=== PATIENT | female | born 1935 | race Caucasian/White ===

== ENCOUNTER → 2016-09-13 | Outpatient (CLI) | payer BC ==
[~2016-09-13] MED LIST: ACET325T30 PO; ANAS1TAB19 PO; CALCTAB5 PO; CETI10TA10 PO; CHOL1000 PO; CHOL2000 PO; CLR10 PO; CMD/3 PO; CTP1CL PO; CYCL0.052 OP; DILT120C67 PO; DIPH1TAB87 PO; DNSIS60 INJ; FLEC50TA PO; MELA1TAB5 PO; MRC50 PO; MULT-190 PO; OMEP20CA9 PO; OXYC-609 PO; PEDICHW34 PO; PLV75 PO; POLY335025 PO; POLYSOL4 OP; SULF500T36 PO; TAMO20TA9 PO; TPRSR100 PO; WARF3TAB6 PO; livalo PO
--- NOTE | 2016-09-13 13:57 | MAMMOGRAPHY REPORT ---
BILATERAL DIGITAL DIAGNOSTIC MAMMOGRAM TOMOSYNTHESIS WITH CAD: 09/13/2016 CLINICAL HISTORY: History of right breast cancer status post lumpectomy September 2015 as well as radiatio n therapy. Patient reports intermittent tenderness of the right breast and right axilla since surge ry. She denies any palpable lumps. TECHNIQUE: Breast tomosynthesis in addition to standard 2D mammography was performed. Current study was also evaluated with a Computer Aided Detection (CAD) system. Bilateral CC and MLO 2-D and mayito synthesis images and spot magnification right cc and ML views were obtained. COMPARISON: Comparison is made to exams dated: 03/15/2016 mammogram, 09/27/2015 mammogram, 09/27/2015 s pecimen, 09/27/2015 localization, 08/27/2015 mammogram, and 08/27/2015 ultrasound biopsy - [facility]. BREAST COMPOSITION: The tissue of both breasts is heterogeneously dense, which may obscure small ma sses. FINDINGS: The images are somewhat limited as the patient cannot tolerate proper positioning. Ther e are stable post surgical changes in the right upper outer quadrant from prior lumpectomy, includin g stable architectural distortion and surgical clips at the lumpectomy bed. Mild diffuse right cheo st skin and trabecular thickening is slightly decreased, likely due to prior radiation therapy. The remainder of both breasts are stable compared to prior exams, without suspicious masses, calcifi cations, or areas of architectural distortion noted. Scattered bilateral benign-appearing calcifica tions are not significantly changed. IMPRESSION: ACR BI-RADS CATEGORY 2: BENIGN Stable post treatment changes in the right breast, without mammographic evidence of malignancy in ei ther breast. There is no mammographic evidence of malignancy. Recommend routine bilateral mammogra ms in one year unless otherwise clinically indicated; I would recommend the patient remain a diagnos tic patient so that additional views can be performed of the lumpectomy bed if needed. The patient has been verbally notified of the results. Approximately 10% of breast cancers are not detected with mammography. A negative mammographic repor t should not delay biopsy if a clinically suggestive mass is present. Ana Loya M.D. /:09/13/2016 10:55:22 Professor Of Practice: Sola Cummings, [facility] letter sent: Normal 1/2 BI-RADS Code: ACR BI-RADS Category 2: Benign
== END | disposition home or self-care (01) ==
LOC: C.MAMM 10:19
PROVIDERS: ATTEND Nurse Practitioner Family
DX: Z08 Encounter for follow-up examination after completed treatment for malignant neoplasm (principal); Z85.3 Personal history of malignant neoplasm of breast; Z92.3 Personal history of irradiation

== ENCOUNTER → 2016-11-15 | Outpatient (CLI) | payer BC ==
[~2016-11-15] MED LIST changes: -ANAS1TAB19 PO; -CYCL0.052 OP; +DIPH1TAB PO; -DIPH1TAB87 PO; +TAMO20TA47 PO; -TAMO20TA9 PO
[2016-11-15 14:56] VITALS: BP 155/74; PULSE 71; TEMP 36.8; O2SAT 99
--- NOTE | 2016-11-15 16:23 | Radiation Oncology Follow-Up ---
Radiation Oncology Follow-Up Date of Visit Nov 15, 2016. Reason For Visit Six-month follow-up Radiation Completion Date 01/26/16 - due to compression fx Diagnosis (1) Breast cancer Status: Resolved Onset Date: 08/27/2015 Histology Subtype: lobular and ductal to lesions Stage: ll (A) Permanent Comment: Abnormal right breast mammogram 08/01/2015 Status post biopsy 08/27/2015 10:00 lesion invasive ductal carcinoma, grade 1 Estrogen receptor positive, progesterone receptor negative, HER-2/quique negative 11:00 lesion invasive lobular carcinoma, grade 1 Estrogen receptor positive, progesterone receptor positive, HER-2/quique negative Status post lumpectomy and sentinel lymph node biopsy 09/27/2015 Lobular and ductal carcinoma Stage pT1b pN1a M0 Radiation therapy stopped 01/26/2016 received 3780 cGy. Treatments stopped early due to admission for compression fracture and inability to tolerate being in the treatment position Last Edited By: Frances Hogan on Mar 08, 2016 16: 33 History of Present Illness Ms. Meehan is an 81-year-old female without a family history of breast cancer. He had recently undergone a CT scan of the abdomen and pelvis on 06/30/2015 for complaint of abdominal and back pain. She underwent surgery for a hiatal hernia. On 08/11/2015 patient underwent bilateral digital screening mammograms. This showed a 0.9 cm asymmetry with possible associated architectural distortion in the lateral middle one third of the right breast best seen on the cc views. Additional imaging was suggested with spot compression, true lateral and possible ultrasound recommended. On 2015 the patient underwent a unilateral right digital diagnostic mammogram with a 3-D/2-D and targeted right ultrasound. The previously described asymmetry in the right lateral breast best seen on the cc view effaced to a baseline appearance on the additional views with no clear architectural distortion seen on tomosynthesis images. A 1.0 cm focal asymmetry was seen within the right upper quadrant which appeared stable compared to a prior study in 2009. Targeted ultrasound was performed of the right upper-outer quadrant in the region of the mammographic asymmetry. In the right breast at the 11 o'clock position 4 cm from the nipple a hypoechoic non-circumscribed mass was appreciated measuring 0.6 x 0.6 cm. Additionally there was a subtle 0.4 x 0.4 cm ill-defined irregular hypo-cord region and the right breast at the 10 o'clock position 4 cm the nipple which was felt to be incidentally noted and not seen mammographically. These 2 findings are indeterminant an ultrasound-guided core needle biopsy was recommended for further evaluation. This was given a BIRADS Category 4. On 08/27/2015 the patient underwent ultrasound-guided biopsy of the 10 o'clock position of the right breast and the 11 o'clock position of the right breast. The tissue from the right breast 10:00 core biopsy revealed an invasive ductal carcinoma, [place] grade 1 of 3 with no lymphovascular invasion identified. Estrogen receptors were positive (100%, strong intensity, H-score 300). Progesterone receptors were negative (0%, H- score 0, internal control present). HER-2/ quique overexpression was negative (score 1+, week/incomplete in 50% of the cells. The Ki-67 proliferation index was 5%. The tumor measured up to 0.6 cm The biopsy from the 11 o'clock position of the right breast also revealed an invasive ductal carcinoma Jesu grade 1 of 3 with no lymphovascular invasion identified. Estrogen receptors were positive (100%, strong intensity, H-score 300). Progesterone receptors were positive (45% , strong intensity, H-score 135). HER-2/ quique overexpression was negative (score 0, less than 5% minimal staining). Ki-67 proliferation index was 3-5%. There was evidence of lobular carcinoma in situ. This tumor measured up to 0.4 cm. Both tumors were negative for HER-2/quique by FISH analysis. Case: [id number]. Patient was seen by Dr. Eddie Mendez for evaluation and discussion of the surgical treatment options. He discussed with the patient breast conserving therapy which the patient agreed. Therefore on 2015 the patient underwent a right axillary sentinel node biopsy and right breast lumpectomy. 2 sentinel lymph nodes were identified and 1 was negative. The second contained a deposit of macro metastatic disease measuring 0.5 cm with evidence of extranodal extension identified. 2 lesions were identified. These were invasive lobular and ductal carcinoma. The tumors measured 1.0 x 1.0 x 0.8 cm which was lobular and 0.7 x 0.5 x 0.5 cm which was the ductal lesion. The lobular was a histologic grade 2 and the ductal was a histologic grade 1. No ductal carcinoma in situ was identified there was lobular carcinoma in situ identified. The margins of the invasive lobular carcinoma extended to the superior and inferior en face margins. Additional superior and inferior tissues were taken. These revealed benign breast tissue with the examined en face margins negative for DCIS and invasive carcinoma. The invasive carcinoma extended to within 0.6 cm of the deep margin. No lymphovascular invasion was identified. The final AJCC pathologic staging was pT1b pN1a for the lobular carcinoma. ER positive, [place] positive and HER-2/quique negative. The AJCC pathologic stage for the ductal component was pT1b pN0, ER positive, [place] negative and HER-2/quique negative. Case: [id number]. Patient was seen by Dr. Alverto Leo for discussion of the role of adjuvant therapy. He suggested consideration of adjuvant radiation and antiestrogen therapy. The patient was also seen by Dr. Kp Virgen who agreed with this recommendation. We therefore were asked to see the patient in referral to discuss with her the potential role of adjuvant radiation. Patient's treatment was stopped after 21 fractions 01/26/2016. She had sustained a compression fracture and was hospitalized. [facility] She continued on pain medications and physical therapy. She had required the use of a fentanyl patch in order to be able to lay in the treatment position. This was 12 g per hour. Following treatment this was continued to help with the pain of her complexion fracture. She steadily improved and was discharged back to her own [facility] the [facility]. Interim History She's been doing well over the past 6 months. She does have occasional soreness in her breast. She also has some mild discomfort in the chest wall. This is intermittent and minimal. She is noted no masses. There is been no changes of the axilla. She has noted no swelling of her arm. She is up-to- date on mammography. Mammogram was performed 09/13/2016. This showed posttreatment changes in the right breast, without mammographic evidence of malignancy in either breast. There is no mammographic evidence of malignancy. Recommend routine bilateral mammograms in one year unless otherwise clinically indicated. She'll continue with diagnostic mammograms. She had been on Arimidex. She called and requested that this be changed to tamoxifen. She was greatly concerned about the possibility of increased osteoporosis. Allergies Coded Allergies: Penicillins (Verified Allergy, Severe, THROAT SWELLS, PASSES OUT, 11/02/15) PASSES OUT AND THROAT SWELLS Coos (Verified Allergy, Mild, Runny/stuffy nose, 11/02/15) Aspirin (Verified Allergy, Unknown, WELTS AROUND EYES, 11/02/15) Atorvastatin (Verified Allergy, Unknown, Unknown, 11/02/15) Chocolate (Verified Adverse Reaction, Intermediate, DIARRHEA, 11/02/15) Lactose Intolerance (Verified Adverse Reaction, Intermediate, GI upset, 09/27/15) Dust (Verified Adverse Reaction, Mild, RUNNY NOSE/SINUS ISSUES, 11/02/15) Grass (Verified Adverse Reaction, Mild, RUNNY NOSE/SINUS ISSUES, 11/02/15) Mushroom (Verified Adverse Reaction, Mild, GI SYMPTOMS, 11/02/15) POLLEN (Verified Adverse Reaction, Mild, RUNNY NOSE/SINUS ISSUES, 11/02/15) Soy Milk (Verified Adverse Reaction, Mild, GI SYMPTOMS, 11/02/15) Pt has not tried other soy sources than milk since she had GI upset associated with soy milk; Pt has been receiving Fibersource HN via J-tube (contains soy protein isolate); no GI symptoms reported. Chicken Meat (Verified Adverse Reaction, Unknown, DIARRHEA, 11/02/15) Simvastatin (Verified Adverse Reaction, Unknown, Unknown, 11/02/15) Home Medications Scheduled Cholecalciferol (Vitamin D3), 1,000 INTER.UNIT PO BID Cholecalciferol (Vitamin D3), 1 CAP PO DAILY Clonidine Hcl (Catapres), 0.1 MG PO BID Clopidogrel Bisulfate (Clopidogrel), 75 MG PO QAM Denosumab (Prolia), 1 DOSE INJ q6mon Diltiazem Hcl Extended Release (Diltiazem Hcl Er), 120 MG PO QAM Flecainide Acetate (Tambocor), 50 MG PO BID Melatonin (Kp Melatonin), 3 MG PO HS Mercaptopurine (Mercaptopurine), 75 MG PO QPM Metoprolol Succinate (Toprol Xl), 100 MG PO QAM Ocuvite Preservision (Ocuvite Preservision), 1 TAB PO QAM Omeprazole (Prilosec), 20 MG PO DAILY Pediatric Multiple Vitamin W/ ([place] Multivitamin/M), 2 TABS PO QAM Sulfasalazine (Azulfidine), 500 MG PO BID Tamoxifen (Nolvadex), 20 MG PO DAILY Warfarin Sod (Warfarin Sodium), 6 MG PO DAILY [livalo], 4 MG PO HS Scheduled PRN Acetaminophen (Acetaminophen), 650 MG PO Q4H PRN for Mild Pain Loratadine (Claritin), 10 MG PO DAILY PRN for ALLERGIC REACTION Oxycodone HCl (Oxycodone HCl), 5 MG PO Q6H PRN for Severe Pain Polyethylene Glycol 3350 (Miralax), 17 GM PO DAILY PRN for Constipation Review of Systems Gastrointestinal: Symptoms: WNL Oral: Symptoms: No Problems Respiratory: Symptoms: WNL Urinary: Symptoms: WNL, Frequency Skin: Symptoms: No Problems Breast: Right Upper Arm Measurement: 28.9 Right Mid Arm Measurement: 23.5 Right Wrist Measurement: 16.2 Left Upper Arm Measurement: 30.0 Left Mid Arm Measurement: 23.9 Left Wrist Measurement: 15.6 Arm Dominence: Right Physical Exam Vital Signs Date Time Temp Pulse Resp B/P (MAP) Pulse Ox O2 Delivery O2 Flow Rate FiO2 11/15/16 14:56 36.8 71 16 155/74 99 Fatigue: None General Appearance: no apparent distress Eyes: normal inspection, EOMI ENT: normal ENT inspection, hearing grossly normal Neck: no adenopathy, thyroid normal Respiratory/Chest: lungs clear, no respiratory distress, no accessory muscle use Breast: Breast examination reveals well-healed incisions of the right breast. There are no masses. There is mild generalized tenderness. There is no axillary adenopathy. There are no skin retractions or nipple changes. Using the [place] score cosmesis she has a in excellent outcome. The left breast showed no masses or tenderness and no axillary adenopathy. Cardiovascular: no gallop, no murmur, + systolic murmur (3/6 systolic murmur) Extremities: no pedal edema Neurologic/Psychiatric: no motor/sensory deficits, alert, normal mood/affect Laboratory Studies Test 09/18/16 11:27 09/28/16 10:41 10/16/16 14:12 11/13/16 09:38 White Blood Count 4.22 K/uL (4.8-10.8) Red Blood Count 3.59 M/uL (4.2-5.4) Hemoglobin 11.7 g/dL (12.0-16.0) Hematocrit 37.8 % (37-47) Mean Corpuscular Volume 105.3 fL (80-100) Mean Corpuscular Hemoglobin 32.6 pg (25-34) Mean Corpuscular Hemoglobin Concent 31.0 g/dl (32-36) Platelet Count 280 K/uL (130-400) Mean Platelet Volume 9.9 fL (7.4-10.4) Neutrophils (%) (Auto) 61.2 % Lymphocytes (%) (Auto) 19.2 % Monocytes (%) (Auto) 16.6 % Eosinophils (%) (Auto) 1.9 % Basophils (%) (Auto) 0.9 % Neutrophils # (Auto) 2.58 K/uL (1.4-6.5) Lymphocytes # (Auto) 0.81 K/uL (1.2-3.4) Monocytes # (Auto) 0.70 K/uL (0.11-0.59) Eosinophils # (Auto) 0.08 K/uL (0-0.5) Basophils # (Auto) 0.04 K/uL (0-0.2) RDW Standard Deviation 60.6 fL (36.4-46.3) RDW Coefficient of Variation 15.7 % (11.5-14.5) Immature Granulocyte % (Auto) 0.2 % Immature Granulocyte # (Auto) 0.01 K/uL (0.00-0.02) Sodium Level 144 mmol/L (136-145) Potassium Level 4.7 mmol/L (3.5-5.1) Chloride Level 110 mmol/L (98-107) Carbon Dioxide Level 30 mmol/L (21-32) Anion Gap 4.0 mmol/L (3-11) Blood Urea Nitrogen 19 mg/dl (7-18) Creatinine 0.70 mg/dl (0.60-1.20) Est Creatinine Clear Calc Drug Dose 56.8 ml/min Estimated GFR () 93.5 Estimated GFR (Non- 80.7 BUN/Creatinine Ratio 27.0 (10-20) Random Glucose 107 mg/dl (70-99) Calcium Level 8.9 mg/dl (8.5-10.1) 9.7 mg/dl (8.5-10.1) Total Bilirubin 0.3 mg/dl (0.2-1) Aspartate Amino Transferase (AST) 28 U/L (15-37) Alanine Aminotransferase (ALT) 37 U/L (12-78) Alkaline Phosphatase 52 U/L (45-117) Lactate Dehydrogenase 218 U/L (84-246) Total Protein 7.0 gm/dl (6.4-8.2) Albumin 3.4 gm/dl (3.4-5.0) Globulin 3.6 gm/dl (2.5-4.0) Albumin/Globulin Ratio 0.9 (0.9-2) 25-Hydroxy Vitamin D Total 33.0 ng/ml (30-100) Parathyroid Hormone (Intact) 49.7 pg/mL (11.1-79.5) POC Prothrombin Time INR 2.2 (0.9-1.1) 1.9 (0.9-1.1) Additional Studies Patient: AMAIRANI MEEHAN [facility] Rec: [id number] Address1: [facility] [id number] Address2: [address] [place] [address] Acct ID: [id number] Date: 1935 Sex: F Ref Phy: Ole Spangler M.D. Att Phy: Alverto Leo D.O. 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 CC: Alverto Leo D.O. CONF: DICTATED BY: Ana Loya MD MAMMOGRAPHY REPORT BILATERAL DIGITAL DIAGNOSTIC MAMMOGRAM TOMOSYNTHESIS WITH CAD: 09/13/2016 CLINICAL HISTORY: History of right breast cancer status post lumpectomy September 2015 as well as radiation therapy. Patient reports intermittent tenderness of the right breast and right axilla since surgery. She denies any palpable lumps. TECHNIQUE: Breast tomosynthesis in addition to standard 2D mammography was performed. Current study was also evaluated with a Computer Aided Detection (CAD ) system. Bilateral CC and MLO 2-D and tomosynthesis images and spot magnification right cc and ML views were obtained. COMPARISON: Comparison is made to exams dated: 03/15/2016 mammogram, 09/27/2015 mammogram, 09/27/2015 specimen, 09/27/2015 localization, 08/27/2015 mammogram, and 08/26 ultrasound biopsy - [facility]. BREAST COMPOSITION: The tissue of both breasts is heterogeneously dense, which may obscure small masses. FINDINGS: The images are somewhat limited as the patient cannot tolerate proper positioning. There are stable post surgical changes in the right upper outer quadrant from prior lumpectomy, including stable architectural distortion and surgical clips at the lumpectomy bed. Mild diffuse right breast skin and trabecular thickening is slightly decreased, likely due to prior radiation therapy. The remainder of both breasts are stable compared to prior exams, without suspicious masses, calcifications, or areas of architectural distortion noted. Scattered bilateral benign-appearing calcifications are not significantly changed. IMPRESSION: ACR BI-RADS CATEGORY 2: BENIGN Stable post treatment changes in the right breast, without mammographic evidence of malignancy in either breast. There is no mammographic evidence of malignancy. Recommend routine bilateral mammograms in one year unless otherwise clinically indicated; I would recommend the patient remain a diagnostic patient so that additional views can be performed of the lumpectomy bed if needed. The patient has been verbally notified of the results. Approximately 10% of breast cancers are not detected with mammography. A negative mammographic report should not delay biopsy if a clinically suggestive mass is present. Ana Loya M.D. ah/:09/13/2016 10:55:22 Tacking Stitch Remover: Sola Cummings, [facility] letter sent: Normal 1/2 BI-RADS Code: ACR BI-RADS Category 2: Benign Dictated by: Ana Loya MD Signed by: Ana Loya MD Assessment & Plan Plan: Continue with scheduled mammography. This will continue to be a digital diagnostic mammogram. She continues on tamoxifen. She'll continue follow-up with Dr. Leo and her primary care physician. We asked her to return to our office in 1 year. She may call if she has any questions or concerns in the interim. Total Time In Follow-Up I spent 20 minutes speaking to the patient and performing examination. I spent 15 minutes reviewing information in completing this note. Problem Qualifiers (1) Breast cancer: Breast location: upper outer quadrant of breast Estrogen receptor status: positive Patient sex: female Laterality: right Qualified Codes: C50.411 - Malignant neoplasm of upper-outer quadrant of right female breast; Z17.0 - Estrogen receptor positive status [ER+]
== END | disposition home or self-care (01) ==
LOC: C.ONC 14:52
PROVIDERS: ATTEND Physician Assistant Medical
DX: Z08 Encounter for follow-up examination after completed treatment for malignant neoplasm (principal); Z92.3 Personal history of irradiation; Z85.3 Personal history of malignant neoplasm of breast

== ENCOUNTER → 2016-12-18 | Outpatient (CLI) | payer BC ==
[2016-12-18 12:25] LABS: BASO % 0.7 %; BASO ABS # 0.04 K/uL (0-0.2); COMPLETE YES; EOS % 1.4 %; HEMATOCRIT 38.3 % (37-47); IG% 0.2 %; LYMPH % 17.2 %; LYMPH ABS # 0.97 K/uL (1.2-3.4); MEAN CELL VOLUME 104.1 fL (80-100); MEAN CORPUSCULAR HEMOGLOBIN 33.7 pg (25-34); MEAN CORPUSCULAR HGB CONC 32.4 g/dl (32-36); MEAN PLATELET VOLUME 10.3 fL (7.4-10.4); MONO % 15.9 %; NEUT % 64.6 %; PLATELET COUNT 293 K/uL (130-400); RED BLOOD COUNT 3.68 M/uL (4.2-5.4); WHITE BLOOD COUNT 5.65 K/uL (4.8-10.8)
[2016-12-18 12:38] LABS: ALT/SGPT 23 U/L (12-78); AST/SGOT 23 U/L (15-37); BLOOD UREA NITROGEN 17 mg/dl (7-18); BUN/CREATININE RATIO 23.1 (10-20); CALCIUM 9.1 mg/dl (8.5-10.1); CARBON DIOXIDE 30 mmol/L (21-32); CHLORIDE 109 mmol/L (98-107); CREATININE 0.74 mg/dl (0.60-1.20); GLUCOSE 112 mg/dl (70-99); POTASSIUM 4.4 mmol/L (3.5-5.1); SODIUM 142 mmol/L (136-145)
[2016-12-18 12:40] LABS: ALKALINE PHOSPHATASE 75 U/L (45-117)
== END | disposition home or self-care (01) ==
LOC: C.LAB1850 10:11
PROVIDERS: ATTEND Nurse Practitioner Family
DX: C50.411 Malignant neoplasm of upper-outer quadrant of right female breast (principal)

== ENCOUNTER → 2017-04-17 | Outpatient (CLI) | payer BC ==
[~2017-04-17] MED LIST changes: -CETI10TA10 PO; -CHOL1000 PO; -CLR10 PO; -DIPH1TAB PO; +DIPH1TAB87 PO; -MULT-190 PO; -TAMO20TA47 PO; +TAMO20TA9 PO
[2017-04-17 09:37] LABS: BASO % 0.8 %; BASO ABS # 0.04 K/uL (0-0.2); COMPLETE YES; EOS % 1.7 %; HEMATOCRIT 40.6 % (37-47); IG% 0.2 %; LYMPH % 18.3 %; LYMPH ABS # 0.87 K/uL (1.2-3.4); MEAN CELL VOLUME 104.6 fL (80-100); MEAN CORPUSCULAR HEMOGLOBIN 33.8 pg (25-34); MEAN CORPUSCULAR HGB CONC 32.3 g/dl (32-36); MEAN PLATELET VOLUME 10.1 fL (7.4-10.4); MONO % 15.5 %; NEUT % 63.5 %; PLATELET COUNT 248 K/uL (130-400); RED BLOOD COUNT 3.88 M/uL (4.2-5.4); WHITE BLOOD COUNT 4.76 K/uL (4.8-10.8)
[2017-04-17 10:07] LABS: ESTIMATED AVERAGE GLUCOSE 91 mg/dl; HA1C FLAG Normal (Normal)
[2017-04-17 10:10] LABS: ALT/SGPT 28 U/L (12-78); AST/SGOT 27 U/L (15-37); BLOOD UREA NITROGEN 20 mg/dl (7-18); BUN/CREATININE RATIO 26.6 (10-20); CALCIUM 8.8 mg/dl (8.5-10.1); CARBON DIOXIDE 29 mmol/L (21-32); CHLORIDE 107 mmol/L (98-107); CHOLESTEROL 159 mg/dl (0-200); CREATININE 0.74 mg/dl (0.60-1.20); GLUCOSE 88 mg/dl (70-99); SODIUM 142 mmol/L (136-145)
[2017-04-17 10:21] LABS: ALB/GLOB RATIO 0.9 (0.9-2); ALKALINE PHOSPHATASE 48 U/L (45-117); CHOLESTEROL/HDL RATIO 2.5; HDL CHOLESTEROL 64 mg/dl; LDL CHOLESTEROL CALCULATED 82 mg/dl; TRIGLYCERIDES 67 mg/dl (0-150); VERY LOW DENSITY LIPOPROT CALC 13 mg/dl
== END | disposition home or self-care (01) ==
LOC: C.LAB1850 08:23
PROVIDERS: ATTEND Internal Medicine
DX: D68.69 Other thrombophilia (principal); E55.9 Vitamin D deficiency, unspecified; C50.411 Malignant neoplasm of upper-outer quadrant of right female breast

== ENCOUNTER → 2017-08-06 | Outpatient (CLI) | payer BC ==
[~2017-08-06] MED LIST changes: +ACET-1346 PO; -ACET325T30 PO; +CYCL0.052 OP; +PITA1TAB19 PO; -POLYSOL4 OP; -livalo PO
== END | disposition home or self-care (01) ==
LOC: C.MAMM 12:58
PROVIDERS: ATTEND Internal Medicine Rheumatology
DX: M81.0 Age-related osteoporosis without current pathological fracture (principal); E55.9 Vitamin D deficiency, unspecified

== ENCOUNTER → 2017-09-20 | Outpatient (CLI) | payer BC ==
[2017-09-20 12:24] LABS: BASO % 1.2 %; BASO ABS # 0.05 K/uL (0-0.2); EOS % 1.5 %; EOS ABS # 0.06 K/uL (0-0.5); HEMATOCRIT 40.2 % (37-47); HEMOGLOBIN 12.9 g/dL (12.0-16.0); LYMPH % 22.1 %; LYMPH ABS # 0.91 K/uL (1.2-3.4); MEAN CELL VOLUME 105.8 fL (80-100); MEAN CORPUSCULAR HEMOGLOBIN 33.9 pg (25-34); MEAN CORPUSCULAR HGB CONC 32.1 g/dl (32-36); MEAN PLATELET VOLUME 10.4 fL (7.4-10.4); NEUT % 58.2 %; NEUT ABS # 2.39 K/uL (1.4-6.5); PLATELET COUNT 275 K/uL (130-400); RED CELL DISTRIBUTION WIDTH CV 15.4 % (11.5-14.5); RED CELL DISTRIBUTION WIDTH SD 59.9 fL (36.4-46.3); WHITE BLOOD COUNT 4.11 K/uL (4.8-10.8)
[2017-09-20 12:51] LABS: ALBUMIN 3.3 gm/dl (3.4-5.0); ALT/SGPT 43 U/L (12-78); AST/SGOT 34 U/L (15-37); BLOOD UREA NITROGEN 20 mg/dl (7-18); CALCIUM 9.1 mg/dl (8.5-10.1); CARBON DIOXIDE 30 mmol/L (21-32); CREATININE 0.92 mg/dl (0.60-1.20); GLUCOSE 123 mg/dl (70-99); POTASSIUM 4.5 mmol/L (3.5-5.1); SODIUM 141 mmol/L (136-145)
[2017-09-20 12:53] LABS: ALKALINE PHOSPHATASE 50 U/L (45-117)
== END | disposition home or self-care (01) ==
LOC: C.LAB1850 10:48
PROVIDERS: ATTEND Nurse Practitioner Family
DX: C50.411 Malignant neoplasm of upper-outer quadrant of right female breast (principal)

== ENCOUNTER → 2017-09-27 | Outpatient (CLI) | payer BC | END | disposition home or self-care (01) | LOC: C.LABBC 11:07 | PROVIDERS: ATTEND Internal Medicine | DX: R39.15 Urgency of urination (principal); R35.0 Frequency of micturition; R10.9 Unspecified abdominal pain ==

== ENCOUNTER → 2017-10-15 | Outpatient (CLI) | payer BC | END | disposition home or self-care (01) | LOC: C.LAB1850 11:40 | PROVIDERS: ATTEND Internal Medicine Rheumatology | DX: M81.0 Age-related osteoporosis without current pathological fracture (principal); E61.8 Deficiency of other specified nutrient elements; E55.9 Vitamin D deficiency, unspecified ==

== ENCOUNTER 2018-01-10 12:07 | Inpatient (IN) | payer BC, OTHER ==
[~2018-01-10] VITALS: Ht 160 cm; Wt 81.0 kg
[~2018-01-10 12:07] MED LIST changes: +CLR10 PO
[2018-01-10] MEDS ORDERED: SODIUM CHLORIDE 0.9% 1000ML 1,000 ML IV STA (12:27)
--- NOTE | 2018-01-10 12:30 | EMERGENCY ROOM VISIT NOTE ---
History Report prepared by Alicia: Anali Sinclair Under the Supervision of: Dr. Aries Baker M.D. First contact with patient: 12:18 Chief Complaint: VERTIGO Stated Complaint: DIZZINESS/AFIB History of Present Illness The patient is an 82 year old female who presents to the Emergency Room with complaints of resolved dizziness that occurred this morning when she woke up. The patient reports she felt dizzy when she got out of bed this morning but did not fall. She notes she took Metoprolol and Cardizem. She states she does not have any dizziness right now. She notes the dizziness is only when she stands up. The patient's blood pressure was 220/140 this morning. She states she has a history of strokes and takes Plavix. She denies abdominal pain. She states yesterday she had a sharp pain in her head that lasted a few seconds. Source of History: patient Onset: this morning Position: other (generalized) Quality: other (dizzy) Timing: resolved Associated Symptoms: + headache, No abdominal pain Review of Systems See HPI for pertinent positives & negatives. A total of 10 systems reviewed and were otherwise negative. Past Medical & Surgical Medical Problems: (1) Atrial fibrillation (2) Breast cancer (3) CHF (congestive heart failure) (4) CVA (cerebrovascular accident) (5) HTN (hypertension) Surgical Problems: (1) Hx of cholecystectomy Family History Patient reports no known family medical history. Social History Smoking Status: Never Smoker Alcohol Use: none Drug Use: none Housing Status: lives alone Occupation Status: retired Current/Historical Medications Scheduled Calcium Carbonate (Caltrate 600), 600 MG PO BID Cholecalciferol (Vitamin D3), 2,000 UNITS PO DAILY Clonidine Hcl (Catapres), 0.1 MG PO BID Clopidogrel Bisulfate (Clopidogrel), 75 MG PO QAM Cyclosporine (Ophth) (Restasis), 1 DROP OP BID Denosumab (Prolia), 1 DOSE INJ q6mon Diltiazem Hcl Extended Release (Diltiazem Hcl Er), 120 MG PO QAM Flecainide Acetate (Tambocor), 50 MG PO BID Loperamide Hcl (Imodium), 2 MG PO Q6 Melatonin (Kp Melatonin), 3 MG PO HS Mercaptopurine (Mercaptopurine), 75 MG PO QPM Metoprolol Succinate (Toprol Xl), 100 MG PO QAM Omeprazole (Prilosec), 20 MG PO BID Pediatric Multiple Vitamin W/ (Gummi Bear Multivitamin/M), 2 TABS PO QAM Pitavastatin Calcium (Livalo), 4 MG PO HS Sulfasalazine (Azulfidine), 500 MG PO BID Tamoxifen (Nolvadex), 20 MG PO DAILY Warfarin Sod (Warfarin Sodium), 6 MG PO 4XWK Warfarin Sod (Jantoven), 7.5 MG PO 3XWK Scheduled PRN Acetaminophen (Acetaminophen), 650 MG PO Q4H PRN for Mild Pain Loratadine (Claritin), 10 MG PO DAILY PRN for UNDECIDED Oxycodone HCl (Oxycodone HCl), 5 MG PO Q6H PRN for Severe Pain Polyethylene Glycol 3350 (Miralax), 17 GM PO DAILY PRN for Constipation Allergies Coded Allergies: Penicillins (Verified Allergy, Severe, THROAT SWELLS, PASSES OUT, 01/10/18) PASSES OUT AND THROAT SWELLS [place] (Verified Allergy, Mild, Runny/stuffy nose, 01/10/18) Aspirin (Verified Allergy, Unknown, WELTS AROUND EYES, 01/10/18) Atorvastatin (Verified Allergy, Unknown, Unknown, 01/10/18) Chocolate (Verified Adverse Reaction, Intermediate, DIARRHEA, 01/10/18) Lactose Intolerance (Verified Adverse Reaction, Intermediate, GI upset, ) Dust (Verified Adverse Reaction, Mild, RUNNY NOSE/SINUS ISSUES, 01/10/18) Grass (Verified Adverse Reaction, Mild, RUNNY NOSE/SINUS ISSUES, 01/10/18) Mushroom (Verified Adverse Reaction, Mild, GI SYMPTOMS, 01/10/18) POLLEN (Verified Adverse Reaction, Mild, RUNNY NOSE/SINUS ISSUES, 01/10/18) Soy Milk (Verified Adverse Reaction, Mild, GI SYMPTOMS, 01/10/18) Pt has not tried other soy sources than milk since she had GI upset associated with soy milk; Pt has been receiving Fibersource HN via J-tube (contains soy protein isolate); no GI symptoms reported. Chicken Meat (Verified Adverse Reaction, Unknown, DIARRHEA, 01/10/18) Simvastatin (Verified Adverse Reaction, Unknown, Unknown, 01/10/18) Physical Exam Vital Signs Date Time Temp Pulse Resp B/P (MAP) Pulse Ox O2 Delivery O2 Flow Rate FiO2 8/16/18 16:16 144/81 01/10/18 16:05 150/101 01/10/18 16:03 79 20 150/101 94 Room Air 01/10/18 14:56 71 20 88 01/10/18 14:51 80 22 98 01/10/18 14:46 132/71 01/10/18 14:45 85 21 93 01/10/18 14:40 143/75 01/10/18 14:36 74 18 96 01/10/18 14:06 68 20 96 01/10/18 14:01 127/63 01/10/18 13:51 73 25 97 01/10/18 13:46 60 18 128/86 97 Room Air 01/10/18 13:37 59 30 98 01/10/18 13:34 182/109 96 01/10/18 13:07 64 15 88 01/10/18 12:52 93 17 84 01/10/18 12:46 216/84 01/10/18 12:42 /150 01/10/18 12:40 268/136 01/10/18 12:39 268/136 01/10/18 12:37 69 18 96 01/10/18 12:31 75 16 164/138 89 Nasal Cannula 2.0 69 01/10/18 12:31 96 Nasal Cannula 2.0 01/10/18 12:28 92 Nasal Cannula 01/10/18 12:28 164/138 01/10/18 12:28 73 16 164/138 92 Nasal Cannula 2.0 01/10/18 12:27 88 Room Air 01/10/18 12:22 77 15 01/10/18 12:17 78 01/10/18 12:16 37.0 79 16 92 Room Air Physical Exam GENERAL: Awake, alert, well-appearing, in no acute distress HENT: Normocephalic, atraumatic. Oropharynx unremarkable. EYES: Normal conjunctiva. Sclera non-icteric. NECK: Supple. No nuchal rigidity. FROM. No JVD. RESPIRATORY: Clear to auscultation. CARDIAC: Extremities warm and well perfused. Pulses equal. 2/6 systolic murmur. ABDOMEN: Soft, non-distended. No tenderness to palpation. No rebound or guarding. No masses. RECTAL: Deferred. MUSCULOSKELETAL: Chest examination reveals no tenderness. The back is symmetrical on inspection without obvious abnormality. There is no CVA tenderness to palpation. No joint edema. LOWER EXTREMITIES: Calves are equal size bilaterally and non-tender. No edema. No discoloration. NEURO: Normal sensorium. No sensory or motor deficits noted. SKIN: No rash or jaundice noted. Medical Decision & Procedures ER Provider Diagnostic Interpretation: Radiology results as stated below per my review and radiologist interpretation: CHEST ONE VIEW PORTABLE CLINICAL HISTORY: Pt c/o SOB COMPARISON STUDY: 03/28/2016 FINDINGS: Permanent bipolar cardiac pacemaker in good position. Small left effusion improved in the prior study. Mild increase in pulmonary vasculature compared to the prior exam. IMPRESSION: Developing congestive heart failure. The above report was generated using voice recognition software. It may contain grammatical, syntax or spelling errors. Electronically signed by: Duy León M.D. 01/10/2018 1:00 PM Dictated Date/Time: 01/10/2018 1:00 PM Laboratory Results Test 01/10/18 13:30 01/10/18 13:57 01/10/18 14:01 01/10/18 16:01 Urine Color YELLOW Urine Appearance CLEAR (CLEAR) Urine pH 8.0 (4.5-7.5) Urine Specific [place] 1.009 (1.000-1.030) Urine Protein NEG (NEG) Urine Glucose (UA) NEG (NEG) Urine Ketones NEG (NEG) Urine Occult Blood NEG (NEG) Urine Nitrite NEG (NEG) Urine Bilirubin NEG (NEG) Urine Urobilinogen NEG (NEG) Urine Leukocyte Esterase NEG (NEG) Immature Granulocyte % (Auto) 0.2 % White Blood Count 5.22 K/uL (4.8-10.8) Red Blood Count 3.80 M/uL (4.2-5.4) Hemoglobin 12.7 g/dL (12.0-16.0) Hematocrit 39.3 % (37-47) Mean Corpuscular Volume 103.4 fL (80-100) Mean Corpuscular Hemoglobin 33.4 pg (25-34) Mean Corpuscular Hemoglobin Concent 32.3 g/dl (32-36) Platelet Count 272 K/uL (130-400) Mean Platelet Volume 10.4 fL (7.4-10.4) Neutrophils (%) (Auto) 71.9 % Lymphocytes (%) (Auto) 17.2 % Monocytes (%) (Auto) 9.2 % Eosinophils (%) (Auto) 1.1 % Basophils (%) (Auto) 0.4 % Neutrophils # (Auto) 3.75 K/uL (1.4-6.5) Lymphocytes # (Auto) 0.90 K/uL (1.2-3.4) Monocytes # (Auto) 0.48 K/uL (0.11-0.59) Eosinophils # (Auto) 0.06 K/uL (0-0.5) Basophils # (Auto) 0.02 K/uL (0-0.2) Immature Granulocyte # (Auto) 0.01 K/uL (0.00-0.02) Total Bilirubin 0.5 mg/dl (0.2-1) Direct Bilirubin 0.1 mg/dl (0-0.2) Aspartate Amino Transf (AST/SGOT) 26 U/L (15-37) Alanine Aminotransferase (ALT/SGPT) 24 U/L (12-78) Alkaline Phosphatase 42 U/L (45-117) Total Creatine Kinase 46 U/L (26-192) Creatine Kinase MB < 1.0 ng/ml (0.5-3.6) Creatine Kinase MB Ratio (0-3.0) Pro-B-Type Natriuretic Peptide 5132 pg/ml (0-1800) Total Protein 6.1 gm/dl (6.4-8.2) Albumin 2.8 gm/dl (3.4-5.0) Thyroid Stimulating Hormone (TSH) 0.800 uIu/ml (0.300-4.500) Prothrombin Time 24.6 SECONDS (9.0-12.0) Prothromb Time International Ratio 2.4 (0.9-1.1) Bedside Glucose 113 mg/dl (70-90) Labs reviewed by ED physician. Medications Administered Medications (Trade) Dose Ordered Sig/Rina Route Start Time Stop Time Status Last Admin Dose Admin Sodium Chloride 1,000 ml @ 999 mls/hr Q1H1M STAT IV 01/10/18 12:27 01/10/18 14:32 DC 01/10/18 13:34 999 MLS/HR Hydralazine HCl (HydrALAZINE INJ) 10 mg NOW STAT IV. 01/10/18 12:44 01/10/18 12:45 DC 01/10/18 13:35 10 MG Furosemide (Lasix Inj) 40 mg NOW STAT IV 01/10/18 14:21 01/10/18 14:23 DC 01/10/18 14:41 40 MG Ondansetron HCl (Zofran Inj) 4 mg NOW STAT IV 01/10/18 15:15 01/10/18 15:29 DC 01/10/18 15:34 4 MG ECG Per My Interpretation Indication: other (dizzy) Rate (beats per minute): 87 Rhythm: sinus rhythm Findings: PVC, other (premature atrial complex, no ST elevation or depression) ED Course 1220: Past medical records reviewed. The patient was evaluated in room C2B. A complete history and physical examination was performed. Medical Decision Differential diagnosis: Etiologies such as benign positional vertigo, dehydration, hypovolemia, anemia, tumor, infection, hypoglycemia, electrolyte abnormalities, cardiac sources, intracerebral event, toxicologic, neurologic, as well as others were entertained. This is an 82-year-old female who presents the emergency department complaining of dizziness. The patient has a blood pressure of 260/130. Based on this finding the patient was given hydralazine IV 10 mg. She appears to be volume overloaded on chest x-ray therefore she was given Lasix. Patient was also given Zofran. Fluids were originally ordered for the patient but canceled. Because of the x-ray and laboratory findings I did discuss the case with the hospitalist service who agreed to admit the patient. Patient was in agreement with the treatment plan. Medication Reconcilliation Current Medication List: was personally reviewed by me Impression Primary Impression: Hypertensive urgency Additional Impression: CHF (congestive heart failure) Scribe Attestation The scribe's documentation has been prepared under my direction and personally reviewed by me in its entirety. I confirm that the note above accurately reflects all work, treatment, procedures, and medical decision making performed by me. Departure Information Dispostion Home / Self-Care Referrals Ole Spangler M.D. (PCP) Patient Instructions My [facility] Health Problem Qualifiers Additional Impression: CHF (congestive heart failure) Heart failure type: unspecified Heart failure chronicity: unspecified Qualified Codes: I50.9 - Heart failure, unspecified
[2018-01-10] MEDS ORDERED: HydrALAZINE HCL 20 MG/ML VIAL IV. STA (12:44)
--- NOTE | 2018-01-10 13:02 | DIAGNOSTIC IMAGING REPORT ---
CHEST ONE VIEW PORTABLE CLINICAL HISTORY: Pt c/o SOB COMPARISON STUDY: 03/28/2016 FINDINGS: Permanent bipolar cardiac pacemaker in good position. Small left effusion improved in the prior study. Mild increase in pulmonary vasculature compared to the prior exam. IMPRESSION: Developing congestive heart failure. The above report was generated using voice recognition software. It may contain grammatical, syntax or spelling errors. Electronically signed by: Duy León M.D. 01/10/2018 1:00 PM Dictated Date/Time: 01/10/2018 1:00 PM
[2018-01-10] MEDS ORDERED: IMD/2 PO (13:57)
[2018-01-10 14:08] LABS: BASO % 0.4 %; BASO ABS # 0.02 K/uL (0-0.2); EOS % 1.1 %; EOS ABS # 0.06 K/uL (0-0.5); HEMATOCRIT 39.3 % (37-47); HEMOGLOBIN 12.7 g/dL (12.0-16.0); IG# 0.01 K/uL (0.00-0.02); LYMPH % 17.2 %; MEAN CELL VOLUME 103.4 fL (80-100); MEAN CORPUSCULAR HEMOGLOBIN 33.4 pg (25-34); MEAN CORPUSCULAR HGB CONC 32.3 g/dl (32-36); MEAN PLATELET VOLUME 10.4 fL (7.4-10.4); MONO % 9.2 %; MONO ABS # 0.48 K/uL (0.11-0.59); NEUT % 71.9 %; NEUT ABS # 3.75 K/uL (1.4-6.5); PLATELET COUNT 272 K/uL (130-400); RED CELL DISTRIBUTION WIDTH CV 15.3 % (11.5-14.5); RED CELL DISTRIBUTION WIDTH SD 57.5 fL (36.4-46.3); WHITE BLOOD COUNT 5.22 K/uL (4.8-10.8)
[2018-01-10 14:19] LABS: INR 2.4 (0.9-1.1)
[2018-01-10] MEDS ORDERED: FUROSEMIDE 40 MG/4 ML VIAL IV STA (14:21)
--- NOTE | 2018-01-10 14:24 | DIAGNOSTIC IMAGING REPORT ---
HEAD WITHOUT CONTRAST (CT) CT DOSE: 638.56 mGycm HISTORY: Mental status change Pt c/o dizziness TECHNIQUE: Multiaxial CT images of the head were performed without the use of intravenous contrast. A dose lowering technique was utilized adhering to the principles of ALARA. Comparison: 01/23/2014 Findings: The paranasal sinuses and mastoid air cells are clear. The calvarium and skull base are intact. The ventricles and sulci are within normal limits. There is no mass, hematoma, midline shift, or acute infarct. Small old left periventricular infarct. Mild age-related atrophy and minimal chronic small vessel change. Impression: No acute intracranial abnormality. The above report was generated using voice recognition software. It may contain grammatical, syntax or spelling errors. Electronically signed by: Duy León M.D. 01/10/2018 2:23 PM Dictated Date/Time: 01/10/2018 2:21 PM
[2018-01-10 14:35] LABS: ALBUMIN 2.8 gm/dl (3.4-5.0); ALKALINE PHOSPHATASE 42 U/L (45-117); ALT/SGPT 24 U/L (12-78); AST/SGOT 26 U/L (15-37); BLOOD UREA NITROGEN 13 mg/dl (7-18); CALCIUM 8.2 mg/dl (8.5-10.1); CARBON DIOXIDE 26 mmol/L (21-32); CKMB < 1.0 ng/ml (0.5-3.6); CREATININE 0.72 mg/dl (0.60-1.20); GLUCOSE 98 mg/dl (70-99); POTASSIUM 4.3 mmol/L (3.5-5.1); SODIUM 141 mmol/L (136-145); TOTAL PROTEIN 6.1 gm/dl (6.4-8.2)
[2018-01-10] MEDS ORDERED: ONDANSETRON INJ 2 MG/ML 2 ML VIAL IV STA (15:15)
--- NOTE | 2018-01-10 16:19 | History and Physical ---
History & Physical Date & Time of Service: Jan 10, 2018 at 16:16 Chief Complaint: Dizziness/Afib Primary Care Physician: Ole Spangler M.D. History of Present Illness Source: patient, hospital records, other This is a pleasant 80 y/o F with a complex medical history including breast CA, CVA x 2, AF and pacer placement, sarcoidosis, UC, HTN, HLD, multiple compression fractures. The pt presented to the ER with a primary complaint of dizziness. She had gotten out of bed and had become acutely dizzy earlier in the day. She sat down again and took her medications including Metoprolol and Diltiazem. She again became dizzy when attempting to stand and at that point had decided to attend the hospital. On arrival to the ER, it was noted that she was hypoxic and that her BP read as 268/136. A CXR demonstrated vascular congestion. She was treated with Hydralazine and Lasix to good effect. She does not c/o dizziness at the time of admission. She denies any CP, a productive cough or fevers. She does not have a history of CHF. 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 Patient reports no known family medical history. Mother from CVA age 68 Father at early age from "blood poisoning" Social History Smoking Status: Never Smoker Drug Use: none Occupational Status: retired Immunizations History of Influenza Vaccine: Yes Influenza Vaccine Date: Feb 27, 2013 History of Tetanus Vaccine?: Unknown Tetanus Immunization Date: Oct 26, 2002 History of Pneumococcal: Unknown Pneumococcal Date: Oct 27, 1999 History of Hepatitis B Vaccine: Unknown Hepatitis Immunization Date: Oct 26, 2006 Allergies Coded Allergies: Penicillins (Verified Allergy, Severe, THROAT SWELLS, PASSES OUT, 01/10/18) PASSES OUT AND THROAT SWELLS [place] (Verified Allergy, Mild, Runny/stuffy nose, 01/10/18) Aspirin (Verified Allergy, Unknown, WELTS AROUND EYES, 01/10/18) Atorvastatin (Verified Allergy, Unknown, Unknown, 01/10/18) Chocolate (Verified Adverse Reaction, Intermediate, DIARRHEA, 01/10/18) Lactose Intolerance (Verified Adverse Reaction, Intermediate, GI upset, ) Dust (Verified Adverse Reaction, Mild, RUNNY NOSE/SINUS ISSUES, 01/10/18) Grass (Verified Adverse Reaction, Mild, RUNNY NOSE/SINUS ISSUES, 01/10/18) Mushroom (Verified Adverse Reaction, Mild, GI SYMPTOMS, 01/10/18) POLLEN (Verified Adverse Reaction, Mild, RUNNY NOSE/SINUS ISSUES, 01/10/18) Soy Milk (Verified Adverse Reaction, Mild, GI SYMPTOMS, 01/10/18) Pt has not tried other soy sources than milk since she had GI upset associated with soy milk; Pt has been receiving Fibersource HN via J-tube (contains soy protein isolate); no GI symptoms reported. Chicken Meat (Verified Adverse Reaction, Unknown, DIARRHEA, 01/10/18) Simvastatin (Verified Adverse Reaction, Unknown, Unknown, 01/10/18) Home Medications Scheduled Calcium Carbonate (Caltrate 600), 600 MG PO BID Cholecalciferol (Vitamin D3), 2,000 UNITS PO DAILY Clonidine Hcl (Catapres), 0.1 MG PO BID Clopidogrel Bisulfate (Clopidogrel), 75 MG PO QAM Cyclosporine (Ophth) (Restasis), 1 DROP OP BID Denosumab (Prolia), 1 DOSE INJ q6mon Diltiazem Hcl Extended Release (Diltiazem Hcl Er), 120 MG PO QAM Flecainide Acetate (Tambocor), 50 MG PO BID Loperamide Hcl (Imodium), 2 MG PO Q6 Melatonin (Kp Melatonin), 3 MG PO HS Mercaptopurine (Mercaptopurine), 75 MG PO QPM Metoprolol Succinate (Toprol Xl), 100 MG PO QAM Omeprazole (Prilosec), 20 MG PO BID Pediatric Multiple Vitamin W/ (Gummi Bear Multivitamin/M), 2 TABS PO QAM Pitavastatin Calcium (Livalo), 4 MG PO HS Sulfasalazine (Azulfidine), 500 MG PO BID Tamoxifen (Nolvadex), 20 MG PO DAILY Warfarin Sod (Warfarin Sodium), 6 MG PO 4XWK Warfarin Sod (Jantoven), 7.5 MG PO 3XWK Scheduled PRN Acetaminophen (Acetaminophen), 650 MG PO Q4H PRN for Mild Pain Loratadine (Claritin), 10 MG PO DAILY PRN for UNDECIDED Oxycodone HCl (Oxycodone HCl), 5 MG PO Q6H PRN for Severe Pain Polyethylene Glycol 3350 (Miralax), 17 GM PO DAILY PRN for Constipation Review of Systems Constitutional: No fever, No chills, No sweats Eyes: No worsening of vision ENT: No hearing loss, No unusual epistaxis, No nasal symptoms Respiratory: + shortness of breath, + dyspnea on exertion, + dyspnea at rest Cardiovascular: No chest pain, No orthopnea, No PND Abdomen: No pain, No nausea Musculoskeletal: No joint pain Genitourinary - Female: No dysuria, No urinary frequency Neurologic: + vertigo, No memory loss, No paralysis, No weakness Psychiatric: No depression symptoms Endocrine: No fatigue Hematologic / Lymphatic: No abnormal bleeding/bruising Integumentary: No rash Allergic / Immunologic: No environmental allergies Physical Exam Vital Signs Date Time Temp Pulse Resp B/P (MAP) Pulse Ox O2 Delivery O2 Flow Rate FiO2 01/10/18 16:03 79 20 150/101 94 Room Air 01/10/18 14:56 71 20 88 01/10/18 14:51 80 22 98 01/10/18 14:46 132/71 01/10/18 14:45 85 21 93 01/10/18 14:40 143/75 01/10/18 14:36 74 18 96 01/10/18 14:06 68 20 96 01/10/18 14:01 127/63 01/10/18 13:51 73 25 97 01/10/18 13:46 60 18 128/86 97 Room Air 01/10/18 13:37 59 30 98 01/10/18 13:34 182/109 96 01/10/18 13:07 64 15 88 01/10/18 12:52 93 17 84 01/10/18 12:46 216/84 01/10/18 12:42 /150 01/10/18 12:40 268/136 01/10/18 12:39 268/136 01/10/18 12:37 69 18 96 01/10/18 12:31 75 16 164/138 89 Nasal Cannula 2.0 69 01/10/18 12:31 96 Nasal Cannula 2.0 01/10/18 12:28 92 Nasal Cannula 01/10/18 12:28 164/138 01/10/18 12:28 73 16 164/138 92 Nasal Cannula 2.0 01/10/18 12:27 88 Room Air 01/10/18 12:22 77 15 01/10/18 12:17 78 01/10/18 12:16 37.0 79 16 92 Room Air General Appearance: WD/WN, no apparent distress, + pertinent finding (Pleasant and talkative, elderly female - no distress - ambulating independently) Head: normocephalic ENT: normal ENT inspection, pharynx normal Neck: supple, + JVD Respiratory/Chest: chest non-tender, + pertinent finding (There is no air entry at the L lower base - no audible crackles) Cardiovascular: regular rate, rhythm, + JVD Abdomen/GI: normal bowel sounds, non tender, soft Back: normal inspection, no CVA tenderness Extremities/Musculoskelatal: + pedal edema (minimal) Neurologic/Psych: radiologic technologist mammogram II-XII nml as tested, no motor/sensory deficits, alert, oriented x 3 Skin: normal color Diagnostics Laboratory Results Results Past 24 Hours Test 01/10/18 12:37 01/10/18 13:30 01/10/18 13:57 01/10/18 14:01 Range/Units Bedside Glucose 100 70-90 mg/dl White Blood Count 5.22 4.8-10.8 K/uL Red Blood Count 3.80 4.2-5.4 M/uL Hemoglobin 12.7 12.0-16.0 g/dL Hematocrit 39.3 37-47 % Mean Corpuscular Volume 103.4 80-100 fL Mean Corpuscular Hemoglobin 33.4 25-34 pg Mean Corpuscular Hemoglobin Concent 32.3 32-36 g/dl Platelet Count 272 130-400 K/uL Mean Platelet Volume 10.4 7.4-10.4 fL Neutrophils (%) (Auto) 71.9 % Lymphocytes (%) (Auto) 17.2 % Monocytes (%) (Auto) 9.2 % Eosinophils (%) (Auto) 1.1 % Basophils (%) (Auto) 0.4 % Neutrophils # (Auto) 3.75 1.4-6.5 K/uL Lymphocytes # (Auto) 0.90 1.2-3.4 K/uL Monocytes # (Auto) 0.48 0.11-0.59 K/uL Eosinophils # (Auto) 0.06 0-0.5 K/uL Basophils # (Auto) 0.02 0-0.2 K/uL RDW Standard Deviation 57.5 36.4-46.3 fL RDW Coefficient of Variation 15.3 11.5-14.5 % Immature Granulocyte % (Auto) 0.2 % Immature Granulocyte # (Auto) 0.01 0.00-0.02 K/uL Sodium Level 141 136-145 mmol/L Potassium Level 4.3 3.5-5.1 mmol/L Chloride Level 109 98-107 mmol/L Carbon Dioxide Level 26 21-32 mmol/L Anion Gap 6.0 3-11 mmol/L Blood Urea Nitrogen 13 7-18 mg/dl Creatinine 0.72 0.60-1.20 mg/dl Est Creatinine Clear Calc Drug Dose 58.1 ml/min Estimated GFR () 89.8 Estimated GFR (Non- 77.4 BUN/Creatinine Ratio 17.8 10-20 Random Glucose 98 70-99 mg/dl Calcium Level 8.2 8.5-10.1 mg/dl Total Bilirubin 0.5 0.2-1 mg/dl Direct Bilirubin 0.1 0-0.2 mg/dl Aspartate Amino Transf (AST/SGOT) 26 15-37 U/L Alanine Aminotransferase (ALT/SGPT) 24 12-78 U/L Alkaline Phosphatase 42 45-117 U/L Total Creatine Kinase 46 26-192 U/L Creatine Kinase MB < 1.0 0.5-3.6 ng/ml Creatine Kinase MB Ratio 0-3.0 Troponin I < 0.015 0-0.045 ng/ml Pro-B-Type Natriuretic Peptide 5132 0-1800 pg/ml Total Protein 6.1 6.4-8.2 gm/dl Albumin 2.8 3.4-5.0 gm/dl Thyroid Stimulating Hormone (TSH) 0.800 0.300-4.500 uIu/ml Prothrombin Time 24.6 9.0-12.0 SECONDS Prothromb Time International Ratio 2.4 0.9-1.1 Test 01/10/18 16:01 Range/Units Bedside Glucose 113 70-90 mg/dl Diagnostic Radiology CXR: Permanent bipolar cardiac pacemaker in good position. Small left effusion improved in the prior study. Mild increase in pulmonary vasculature compared to the prior exam. IMPRESSION: Developing congestive heart failure. EKG Atrial paced rhythm - no acute ischemic changes Impression Assessment and Plan This is a pleasant 80 y/o F with a complex medical history including breast CA, CVA x 2, AF and pacer placement, sarcoidosis, UC, HTN, HLD, multiple compression fractures. The pt presented to the ER with a primary complaint of dizziness. She had gotten out of bed and had become acutely dizzy earlier in the day. She sat down again and took her medications including Metoprolol and Diltiazem. She again became dizzy when attempting to stand and at that point had decided to attend the hospital. On arrival to the ER, it was noted that she was hypoxic and that her BP read as 268/136. A CXR demonstrated vascular congestion. She was treated with Hydralazine and Lasix to good effect. She does not c/o dizziness at the time of admission. She denies any CP, a productive cough or fevers. She does not have a history of CHF. 1) Dizziness - HTN urgency - BP has approached normal following administration of Hydralazine and Lasix. Her dizziness is likely due to the HTN and hypoxia and had resolved on arrival to the ER. 2) CHF - new - provided with an initial dose of Lasix. We will obtain an echo and consult her hydrology teacher - it is unclear if she will require regular diuresis going forward as the overload may have been the result of HTN urgency. She feels improved, however, she continues to require 02 at the time of admission. 3) AF - rhythm is paced - cont Metoprolol, Diltiazem - INR is therapeutic on current Coumadin dose 4) UC - she is asymptomatic - receives daily Asacol and Mercaptopurine Full code - Coumadin prophylaxis Total time for this admit including review of labs, meds, imaging, records - discussion with pt and ER attending - 38 min Resuscitation Status VTE Prophylaxis Will order VTE Prophylaxis: Yes
[2018-01-10] MEDS ORDERED: ONDANSETRON INJ 2 MG/ML 2 ML VIAL IV PRN (16:45)
[2018-01-10] MEDS ORDERED: POLYETHYLENE (MIRALAX) 17 GM PACK PO PRN ×2 (16:45)
[2018-01-10] MEDS ORDERED: MoRPHine SULFATE 2 MG/ML CARP IV PRN (16:45)
[2018-01-10] MEDS ORDERED: MAGNESIUM HYDROXIDE SUSP 30 ML UDC PO PRN (16:45)
[2018-01-10] MEDS ORDERED: ALUMINUM/MAGNESIUM/SIMETH (MAALOX MAX) 30 ML UDC PO PRN (16:45)
[2018-01-10] MEDS ORDERED: LORATADINE 10 MG TAB PO PRN (16:45)
[2018-01-10] MEDS: LOPERAMIDE HCL 2 MG CAP PO SCH (18:00)
[2018-01-10 18:49] VITALS: BP 149/64; PULSE 66; TEMP 36.7; O2SAT 97; Ht 160 cm; Wt 81.0 kg
[2018-01-10] MEDS: RESTASIS~ORDER AWAITING ACTION SCH (19:00)
[2018-01-10] MEDS: PANTOprazole SOD 40 MG TAB PO SCH (20:19)
[2018-01-10] MEDS: SULFASALAZINE 500 MG TAB PO SCH (20:19)
[2018-01-10] MEDS: CLONIDINE HCL 0.1 MG TAB PO SCH (20:19)
[2018-01-10] MEDS: FLECAINIDE ACETATE 100 MG TAB PO SCH (20:20)
[2018-01-10] MEDS: MERCAPTOPURINE 50 MG TAB PO SCH (20:21)
[2018-01-10 21:00] VITALS: O2SAT 96
[2018-01-10] MEDS ORDERED: NON-FORMULARY MEDICATION (Melatonin (Kp Melatonin) 3 MG) PO SCH (21:00)
[2018-01-10 23:05] VITALS: BP 122/70; PULSE 59; TEMP 36.9; O2SAT 95
[2018-01-11] VITALS (8 sets, daily range): BP systolic 104–150; BP diastolic 61–80; PULSE 60–89; TEMP 36.7–38.6; O2SAT 93–98
[2018-01-11] MEDS: ACETAMINOPHEN 325 MG TAB PO PRN ×2 (04:15→22:03)
[2018-01-11] MEDS: LOPERAMIDE HCL 2 MG CAP PO SCH ×5 (05:30→23:32)
[2018-01-11 06:14] LABS: HEMATOCRIT 35.7 % (37-47); HEMOGLOBIN 11.8 g/dL (12.0-16.0); MEAN CELL VOLUME 102.6 fL (80-100); MEAN CORPUSCULAR HEMOGLOBIN 33.9 pg (25-34); MEAN CORPUSCULAR HGB CONC 33.1 g/dl (32-36); MEAN PLATELET VOLUME 10.3 fL (7.4-10.4); PLATELET COUNT 252 K/uL (130-400); RED CELL DISTRIBUTION WIDTH CV 15.2 % (11.5-14.5); RED CELL DISTRIBUTION WIDTH SD 56.7 fL (36.4-46.3); WHITE BLOOD COUNT 6.22 K/uL (4.8-10.8)
[2018-01-11 06:50] LABS: CALCIUM 7.6 mg/dl (8.5-10.1); CREATININE 0.79 mg/dl (0.60-1.20); POTASSIUM 3.8 mmol/L (3.5-5.1)
[2018-01-11] MEDS: RESTASIS~ORDER AWAITING ACTION SCH ×4 (08:00→23:32)
[2018-01-11] MEDS: FLECAINIDE ACETATE 100 MG TAB PO SCH ×2 (08:06→20:41)
[2018-01-11] MEDS: CLOPIDOGREL BISULFATE 75 MG TAB PO SCH (08:06)
[2018-01-11] MEDS: TAMOXIFEN CITRATE 10 MG TAB PO SCH (08:07)
[2018-01-11] MEDS: METOPROLOL SUCC 50MG EXT REL TAB PO SCH (08:08)
[2018-01-11] MEDS: CLONIDINE HCL 0.1 MG TAB PO SCH ×2 (08:08→20:36)
[2018-01-11] MEDS: DILTIAZEM HCL 120 MG EXT REL CAP PO SCH (08:08)
[2018-01-11] MEDS: SULFASALAZINE 500 MG TAB PO SCH ×2 (08:08→20:40)
[2018-01-11] MEDS: PANTOprazole SOD 40 MG TAB PO SCH ×2 (08:08→20:42)
--- NOTE | 2018-01-11 10:08 | Clinical Documentation Query ---
CLINICAL DOCUMENTATION QUERY 82 year old female who presents to the Emergency Room with complaints dizziness. In ED BP was elevated as high as 268/136 with +JVD and absent LS to LL base. Query #1/2 In your clinical opinion is this patient being managed for: ( x ) Acute diastolic (preserved EF) CHF in setting of hypertensive crisis ( ) Acute systolic (reduced EF) CHF ( ) Not Agree ( ) Other explanation of clinical findings (No explanation is considered a No Response) ( ) Unable to determine ( ) Need to Discuss (Phone CDS or qliq) (No discussion is considered a No Response) The medical record reflects the following clinical findings, treatment, and risk factors. Clinical Indicators: As above. ProBNAP 5132. CXR showed developing congestive heart failure. Treatment: IV Lasix, IV Hydralazine, Cardiology consult, Risk Factors: Age , HTN, mild aortic stenosis. Query #2/2 In your clinical opinion is this patient being managed for: ( x ) Hypertensive crisis causing CHF exacerbation ( ) Not Agree ( ) Other explanation of clinical findings (No explanation is considered a No Response) ( ) Unable to determine ( ) Need to Discuss (Phone CDS or qliq) (No discussion is considered a No Response) The medical record reflects the following clinical findings, treatment, and risk factors. Clinical Indicators: BP as high as 268/136. Dizziness, Head ache, Treatment: IV Lasix, IV Hydralazine, Cardiology consult, Risk Factors: Age, HTN, Please clarify and document your clinical opinion in the progress notes and discharge summary. Terms such as "probable", "suspected", "likely", "questionable", "possible", or "still to be ruled out" are acceptable. IF IN AGREEMENT, YOU MUST DOCUMENT ABOVE DIAGNOSTIC STATEMENT IN DAILY PROGRESS NOTES AND DISCHARGE SUMMARY. This document is not part of the patient's record. Thank You, Alonzo Gates RN [phone] & via [email or web address] HospitalONNE[facility]
--- NOTE | 2018-01-11 12:12 | Cardiology Consultation ---
Cardiology Consultation Date of Consultation: Jan 11, 2018. Requesting Physician: Dr. Kevin Reason for Consultation: CHF Pt evaluation today including: conversation w/ patient, physical exam, lab review, review of studies, review of inpatient medication list History of Present Illness This is an 82-year-old woman with a history of atrial fibrillation and stroke many years before, the cause of the stroke was unknown but involved her right arm, right face and speech. She was diagnosed with atrial fibrillation subsequently in February 2013. She presented complaining of profound fatigue. She was found to be in atrial fibrillation with a rapid ventricular response. Her diltiazem was increased and an echocardiogram was performed which noted normal left ventricular systolic function, mild left ventricular hypertrophy, and a mild to moderately dilated left atrium. In order to control her atrial fibrillation her AV marian blocking medications had been increased. She felt began to feel poorly with nonspecific symptoms of fatigue and weakness and her AV marian blocking medications were discontinued. With discontinuation of her AV marian blocking medication she felt better, but then was documented on Holter monitoring to have atrial fibrillation about one third of the time with heart rates of up to 140 bpm. She also developed severe hypertension. She was admitted to the hospital with chest discomfort suspected to be due to atrial fibrillation with rapid heart rate and with treatment of her tachycardia had significant bradycardia, on telemetry monitoring she had heart rates in the 40s frequently and this appeared to correlate fairly well with her symptoms of weakness. After some discussion we therefore implanted a dual-chamber pacemaker on 02/18/2014, hoping that it would allow us better heart rate control and make her feel better. She was also treated with flecainide to try to control her atrial arrhythmia and that has seemed to help. Unfortunately she developed breast cancer and required radiation therapy to the right and her pacemaker was in the radiation field. This necessitated moving her pacemaker to the left, which we were able to do without using lead extenders therefore her device remains MRI compatible. This was done 2015. She presents with feeling very dizzy and lightheaded, not presyncopal or syncopal and having no cardiac symptoms. She does describe an orthostatic component in that they only seem to occur when she is standing up. She denies symptoms of chest discomfort or palpitations. These symptoms started the day of her presentation, when they continued she came into the emergency room and was noted to be extremely hypertensive. She was also noted to be in congestive heart failure with an elevated BNP and chest x-ray findings. She was treated with blood pressure medications and Lasix and very quickly her symptoms of dizziness resolved. She had no chest discomfort and her cardiac enzymes have been negative. Past Medical/Surgical History (1) Breast cancer (2) CVA (cerebrovascular accident) (3) HTN (hypertension) (4) Atrial fibrillation (5) Hx of cholecystectomy Family History Patient reports no known family medical history. Social History Smoking Status: Never Smoker History of Alcohol Use: Yes ("a little bit"1/week) Review of Systems Constitutional: No fever, No weight loss, No weakness Respiratory: No cough, No wheezing, No shortness of breath, No dyspnea on exertion Cardiac: No chest pain, No orthopnea, No PND, No edema, No palpitations Abdomen: No pain, No nausea, No vomiting, No diarrhea, No GI bleeding Female : No problem reported Neurologic: + see HPI, + problem reported (Dizziness), No paralysis, No weakness, No numbness/tingling, No balance problems Heme: No abnormal bleeding/bruising, No clotting problems Endo: No fatigue Skin: No problem reported All Other Systems: Reviewed and Negative Allergies Coded Allergies: Penicillins (Verified Allergy, Severe, THROAT SWELLS, PASSES OUT, 01/10/18) PASSES OUT AND THROAT SWELLS [place] (Verified Allergy, Mild, Runny/stuffy nose, 01/10/18) Aspirin (Verified Allergy, Unknown, WELTS AROUND EYES, 01/10/18) Atorvastatin (Verified Allergy, Unknown, Unknown, 01/10/18) Chocolate (Verified Adverse Reaction, Intermediate, DIARRHEA, 01/10/18) Lactose Intolerance (Verified Adverse Reaction, Intermediate, GI upset, ) Dust (Verified Adverse Reaction, Mild, RUNNY NOSE/SINUS ISSUES, 01/10/18) Grass (Verified Adverse Reaction, Mild, RUNNY NOSE/SINUS ISSUES, 01/10/18) Mushroom (Verified Adverse Reaction, Mild, GI SYMPTOMS, 01/10/18) POLLEN (Verified Adverse Reaction, Mild, RUNNY NOSE/SINUS ISSUES, 01/10/18) Soy Milk (Verified Adverse Reaction, Mild, GI SYMPTOMS, 01/10/18) Pt has not tried other soy sources than milk since she had GI upset associated with soy milk; Pt has been receiving Fibersource HN via J-tube (contains soy protein isolate); no GI symptoms reported. Chicken Meat (Verified Adverse Reaction, Unknown, DIARRHEA, 01/10/18) Simvastatin (Verified Adverse Reaction, Unknown, Unknown, 01/10/18) Medications Current Inpatient Medications Medications (Trade) Dose Ordered Sig/Rina Route Start Time Stop Time Status Last Admin Dose Admin Acetaminophen (Tylenol Tab) 650 mg Q4H PRN PO 01/10/18 16:45 02/09/18 16:44 01/11/18 04:15 650 MG Al Hydrox/Mg Hydrox/Simethicone (Maalox Max Susp) 15 ml Q4H PRN PO 01/10/18 16:45 02/09/18 16:44 Magnesium Hydroxide (Milk Of Magnesia Susp) 30 ml Q12H PRN PO 01/10/18 16:45 02/09/18 16:44 Ondansetron HCl (Zofran Inj) 4 mg Q6H PRN IV 01/10/18 16:45 02/09/18 16:44 Morphine Sulfate (MoRPHine SULFATE INJ) 2 mg Q30M PRN IV 01/10/18 16:45 01/24/18 16:44 Polyethylene (Miralax Powder Packet) 17 gm DAILY PRN PO 01/10/18 16:45 02/09/18 16:44 Clonidine HCl (Catapres Tab) 0.1 mg BID PO 01/10/18 21:00 02/09/18 20:59 01/11/18 08:08 0.1 MG Clopidogrel Bisulfate (plAVix TAB) 75 mg QAM PO 01/11/18 09:00 02/10/18 08:59 01/11/18 08:06 75 MG Diltiazem HCl (TIAzac CAP) 120 mg QAM PO 01/11/18 09:00 02/10/18 08:59 01/11/18 08:08 120 MG Flecainide Acetate (Tambocor Tab) 50 mg BID PO 01/10/18 21:00 02/09/18 20:59 01/11/18 08:06 50 MG Loperamide HCl (Imodium Cap) 2 mg Q6 PO 01/10/18 18:00 02/09/18 17:59 Loratadine (Claritin Tab) 10 mg DAILY PRN PO 01/10/18 16:45 02/09/18 16:44 Mercaptopurine (Purinethol Tab) 75 mg QPM PO 01/10/18 21:00 02/09/18 20:59 01/10/18 20:21 75 MG Sulfasalazine (Azulfidine Tab) 500 mg BID PO 01/10/18 21:00 02/09/18 20:59 01/11/18 08:08 500 MG Tamoxifen Citrate (Nolvadex Tab) 20 mg DAILY PO 01/11/18 09:00 02/10/18 08:59 01/11/18 08:07 20 MG Warfarin Sodium (Coumadin Tab) 7.5 mg DAILY@1600 PO 01/11/18 16:00 02/10/18 15:59 Miscellaneous Information (Order Awaiting Action) 1 ea QS N/A 01/10/18 19:00 02/09/18 18:59 Metoprolol Succinate (Toprol Xl Tab) 100 mg QAM PO 01/11/18 09:00 02/10/18 08:59 01/11/18 08:08 100 MG Pantoprazole Sodium (Protonix Tab) 40 mg BID PO 01/10/18 21:00 02/09/18 20:59 01/11/18 08:08 40 MG Miscellaneous Information (Order Awaiting Action) 1 ea QS N/A 01/10/18 19:00 02/09/18 18:59 Physical Exam Vital Signs Past 12 Hours Date Time Temp Pulse Resp B/P (MAP) Pulse Ox O2 Delivery O2 Flow Rate FiO2 01/11/18 11:10 36.8 60 16 104/72 (83) 97 Room Air 01/11/18 10:19 64 150/79 (102) 71 145/79 (101) 01/11/18 08:35 Room Air 01/11/18 07:17 36.7 60 16 105/61 (76) 94 Room Air 01/11/18 03:35 36.9 60 20 110/65 (80) 98 Room Air Constitutional: General Apperance: heathly-appearing Level of Distress: NAD Psychiatric: Mental Status: active & alert Head: normocephalic Eyes: EOM: EOMI ENMT: normal ENT inspection, hearing grossly normal Neck: supple, no masses Lungs: Respiratory effort: no dyspnea, good air movement Auscultation: breath sounds normal, no wheezing Cardiovascular: Heart Auscultation: RRR, no murmurs, no rubs, no gallops Peripheral Pulses: Bruits: none appreciated Abdomen: Bowel Sounds: normal Inspection & Palpation: soft, no tenderness, guarding & rebound, no masses Musculoskeletal: normal strength (5/5 throughout) Extremities: no edema Neurologic: Cranial Nerves: grossly intact Sensation: grossly intact Data Laboratory Results: Last 24 Hours Test 01/10/18 12:37 01/10/18 13:30 01/10/18 13:57 01/10/18 14:01 Bedside Glucose 100 mg/dl Urine Color YELLOW Urine Appearance CLEAR Urine pH 8.0 Urine Specific [place] 1.009 Urine Protein NEG Urine Glucose (UA) NEG Urine Ketones NEG Urine Occult Blood NEG Urine Nitrite NEG Urine Bilirubin NEG Urine Urobilinogen NEG Urine Leukocyte Esterase NEG White Blood Count 5.22 K/uL Red Blood Count 3.80 M/uL Hemoglobin 12.7 g/dL Hematocrit 39.3 % Mean Corpuscular Volume 103.4 fL Mean Corpuscular Hemoglobin 33.4 pg Mean Corpuscular Hemoglobin Concent 32.3 g/dl Platelet Count 272 K/uL Mean Platelet Volume 10.4 fL Neutrophils (%) (Auto) 71.9 % Lymphocytes (%) (Auto) 17.2 % Monocytes (%) (Auto) 9.2 % Eosinophils (%) (Auto) 1.1 % Basophils (%) (Auto) 0.4 % Neutrophils # (Auto) 3.75 K/uL Lymphocytes # (Auto) 0.90 K/uL Monocytes # (Auto) 0.48 K/uL Eosinophils # (Auto) 0.06 K/uL Basophils # (Auto) 0.02 K/uL RDW Standard Deviation 57.5 fL RDW Coefficient of Variation 15.3 % Immature Granulocyte % (Auto) 0.2 % Immature Granulocyte # (Auto) 0.01 K/uL Sodium Level 141 mmol/L Potassium Level 4.3 mmol/L Chloride Level 109 mmol/L Carbon Dioxide Level 26 mmol/L Anion Gap 6.0 mmol/L Blood Urea Nitrogen 13 mg/dl Creatinine 0.72 mg/dl Est Creatinine Clear Calc Drug Dose 58.1 ml/min Estimated GFR () 89.8 Estimated GFR (Non- 77.4 BUN/Creatinine Ratio 17.8 Random Glucose 98 mg/dl Calcium Level 8.2 mg/dl Total Bilirubin 0.5 mg/dl Direct Bilirubin 0.1 mg/dl Aspartate Amino Transf (AST/SGOT) 26 U/L Alanine Aminotransferase (ALT/SGPT) 24 U/L Alkaline Phosphatase 42 U/L Total Creatine Kinase 46 U/L Creatine Kinase MB < 1.0 ng/ml Creatine Kinase MB Ratio Troponin I < 0.015 ng/ml Pro-B-Type Natriuretic Peptide 5132 pg/ml Total Protein 6.1 gm/dl Albumin 2.8 gm/dl Thyroid Stimulating Hormone (TSH) 0.800 uIu/ml Prothrombin Time 24.6 SECONDS Prothromb Time International Ratio 2.4 Test 01/10/18 16:01 01/10/18 19:43 01/11/18 06:01 Bedside Glucose 113 mg/dl Troponin I < 0.015 ng/ml White Blood Count 6.22 K/uL Red Blood Count 3.48 M/uL Hemoglobin 11.8 g/dL Hematocrit 35.7 % Mean Corpuscular Volume 102.6 fL Mean Corpuscular Hemoglobin 33.9 pg Mean Corpuscular Hemoglobin Concent 33.1 g/dl RDW Standard Deviation 56.7 fL RDW Coefficient of Variation 15.2 % Platelet Count 252 K/uL Mean Platelet Volume 10.3 fL Sodium Level 139 mmol/L Potassium Level 3.8 mmol/L Chloride Level 105 mmol/L Carbon Dioxide Level 27 mmol/L Anion Gap 7.0 mmol/L Blood Urea Nitrogen 15 mg/dl Creatinine 0.79 mg/dl Est Creatinine Clear Calc Drug Dose 54.1 ml/min Estimated GFR () 80.2 Estimated GFR (Non- 69.2 BUN/Creatinine Ratio 19.5 Random Glucose 94 mg/dl Calcium Level 7.6 mg/dl Magnesium Level 1.8 mg/dl Imaging: Chest x-ray suggests mild CHF EKG: Predominantly atrial pacing with intact AV conduction, occasional AV pacing and premature ventricular beats Telemetry reviewed: Atrial pacing, no significant abnormality, occasional premature beats Echocardiogram: Normal left ventricular function with left ventricular hypertrophy, moderate aortic stenosis Assessment & Plan 1. Congestive heart failure: She did appear to be in mild congestive heart failure on arrival although now with correction of her blood pressure on exam she does not appear to be in heart failure. It appears to have been due to diastolic heart failure related to her severe hypertension, she has not developed left ventricular dysfunction. I would treat her hypertension and follow her heart failure symptoms. 2. Severe hypertension: She does monitor her blood pressure to a certain extent at home and is never noticed it being very high, although she admits she may have not been taking it regularly shortly before admission. The cause of the severe hypertension is unclear. She has had bouts of severe hypertension in the past as well. 3. 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 Thank you for allowing me to participate in her care.
[2018-01-11] MEDS ORDERED: NURSING VERBAL MED ORDER ONE (12:30)
--- NOTE | 2018-01-11 12:59 | ECHOCARDIOGRAM REPORT ---
*NOTICE TO RECEIVING [employer] This information is strictly Confidential and protected under [place] law. [place] law prohibits you from making any further disclosure of this information unless further disclosure is expressly permitted by the written consent of the person to whom it pertains or is authorized by law. A general authorization for the release of medical or other information is not sufficient for this purpose. Hospital accepts no responsibility if the information is made available to any other person, INCLUDING THE PATIENT. Interpretation Summary * Name: AMAIRANI BOUCHER Study Date: 01/11/2018 06:42 AM BP: 105/61 mmHg * Patient Location: C.2T\S\S239\S\2 HR: 67 * : 1935 (M/d/yyyy) Gender: Female Height: 65 in * Age: 82 yrs Ethnicity: CA Weight: 154 lb * Ordering Physician: Rainer Kevin * Referring Physician: Self, Referred * Performed By: Khushbu Londono RCS * * Reason For Study: CHF * BSA: 1.8 m2 * -- Conclusions -- * Moderate to severe left ventricular hypertrophy * Left ventricular systolic function is normal. * Mild to moderate valvular aortic stenosis. * There is moderate to severe mitral annular calcification. * Right ventricular systolic pressure is normal. * Compared to an echocardiogram from 2013, there has been interim development of aortic stenosis. Procedure Details * A complete two-dimensional transthoracic echocardiogram was performed (2D, M-mode, Doppler and color flow Doppler). Left Ventricle * The left ventricle is normal in size. * Moderate to severe left ventricular hypertrophy * Left ventricular systolic function is normal. * Ejection Fraction = 55-60%. * The left ventricular wall motion is normal. Right Ventricle * The right ventricle is normal in size and function. * There is a pacemaker lead in the right ventricle. Atria * The left atrial size is normal. * Right atrial size is normal. * There is a catheter/pacemaker lead seen in the right atrium. Mitral Valve * Calcified mitral apparatus. * There is moderate to severe mitral annular calcification. * There is trace mitral regurgitation. Tricuspid Valve * The tricuspid valve is not well visualized, but is grossly normal. * There is trace tricuspid regurgitation. * Right ventricular systolic pressure is normal. Aortic Valve * Mild to moderate valvular aortic stenosis. * Trace aortic regurgitation. Pulmonic Valve * The pulmonic valve is not well visualized. Pericardium/Pleural * There is no pericardial effusion. MMode 2D Measurements and Calculations IVSd 1.5 cm IVSs 2.5 cm LVIDd 3.0 cm LVIDs 1.4 cm LVPWd 1.8 cm LVPWs 1.7 cm IVS/LVPW 0.80 FS 53.7 % EDV(Teich) 35.7 ml ESV(Teich) 5.1 ml EF(Teich) 85.9 % EDV(cubed) 27.7 ml ESV(cubed) 2.7 ml EF(cubed) 90.1 % % IVS thick 73.4 % % LVPW thick -5.49 % LV mass(C)d 187.6 grams LV mass(C)dI 106.0 grams/m\S\2 LV mass(C)s 149.8 grams LV mass(C)sI 84.6 grams/m\S\2 SV(Teich) 30.7 ml SI(Teich) 17.3 ml/m\S\2 SV(cubed) 24.9 ml SI(cubed) 14.1 ml/m\S\2 Ao root diam 3.1 cm Ao root area 7.4 cm\S\2 ACS 1.1 cm LVOT diam 1.9 cm LVOT area 2.7 cm\S\2 LVAd ap4 22.7 cm\S\2 LVLd ap4 6.3 cm EDV(MOD-sp4) 67.0 ml EDV(sp4-el) 69.1 ml LVAs ap4 13.8 cm\S\2 LVLs ap4 4.7 cm ESV(MOD-sp4) 36.0 ml ESV(sp4-el) 34.6 ml EF(MOD-sp4) 46.2 % EF(sp4-el) 49.9 % SV(MOD-sp4) 30.9 ml SI(MOD-sp4) 17.5 ml/m\S\2 SV(sp4-el) 34.5 ml SI(sp4-el) 19.5 ml/m\S\2 Doppler Measurements and Calculations MV E max kimberly 110.5 cm/sec MV A max kimberly 92.7 cm/sec MV E/A 1.2 MV P1/2t max kimberly 120.8 cm/sec MV P1/2t 79.4 msec MVA(P1/2t) 2.8 cm\S\2 MV dec slope 445.4 cm/sec\S\2 MV dec time 0.25 sec Ao V2 max 320.3 cm/sec Ao max PG 41.1 mmHg Ao max PG (full) 37.3 mmHg Ao V2 mean 209.7 cm/sec Ao mean PG 22.2 mmHg Ao mean PG (full) 20.6 mmHg Ao V2 VTI 79.6 cm HELLEN(I,A) 0.77 cm\S\2 HELLEN(I,D) 0.77 cm\S\2 HELLEN(V,A) 0.83 cm\S\2 HELLEN(V,D) 0.83 cm\S\2 AI max kimberly 265.9 cm/sec AI max PG 28.3 mmHg AI dec slope 157.7 cm/sec\S\2 AI P1/2t 493.9 msec LV V1 max PG 3.8 mmHg LV V1 mean PG 1.6 mmHg LV V1 max 97.1 cm/sec LV V1 mean 57.0 cm/sec LV V1 VTI 22.4 cm SV(Ao) 585.8 ml SI(Ao) 330.9 ml/m\S\2 SV(LVOT) 61.2 ml SI(LVOT) 34.6 ml/m\S\2 PA V2 max 77.6 cm/sec PA max PG 2.4 mmHg TR max kimberly 243.3 cm/sec
[2018-01-11] MEDS ORDERED: WARFARIN SOD 7.5 MG TAB PO SCH (16:00)
[2018-01-11] MEDS: CALCIUM 600MG + VIT D 400 IU TAB PO SCH (20:37)
[2018-01-11] MEDS: MERCAPTOPURINE 50 MG TAB PO SCH (20:39)
[2018-01-11] MEDS ORDERED: CHOLECALCIFEROL 1000 INTER.UNIT TAB PO SCH (21:00)
--- NOTE | 2018-01-11 22:45 | Progress Note ---
Subjective Date of Service: Jan 11, 2018. Subjective Pt evaluation today including: conversation w/ patient, physical exam Patient reports feeling better today. Patient denies any shortness of breath, dizziness, nausea vomiting. Her blood pressure has also been better controlled. Problem List Medical Problems: (1) Back pain Status: Acute (2) Fracture of L1 vertebra Status: Acute Review of Systems Constitutional: No fever, No chills Eyes: No worsening of vision ENT: No hearing loss Respiratory: No sputum Cardiac: No chest pain Abdomen: No pain Neurologic: No memory loss Psychiatric: No depression symptoms Heme: No abnormal bleeding/bruising Endo: No fatigue Objective Vital Signs Date Time Temp Pulse Resp B/P (MAP) Pulse Ox O2 Delivery O2 Flow Rate FiO2 01/11/18 20:00 Room Air 01/11/18 19:32 37.0 67 18 146/78 (100) 94 Room Air 01/11/18 15:08 36.8 60 17 130/77 (94) 96 Room Air 01/11/18 11:10 36.8 60 16 104/72 (83) 97 Room Air 01/11/18 10:19 64 150/79 (102) 71 145/79 (101) 01/11/18 08:35 Room Air 01/11/18 07:17 36.7 60 16 105/61 (76) 94 Room Air 01/11/18 03:35 36.9 60 20 110/65 (80) 98 Room Air 01/10/18 23:05 36.9 59 122/70 (87) 95 Room Air Physical Exam Comments: General Appearance: WD/WN, no apparent distress, + pertinent finding (Pleasant and talkative, elderly female - no distress - ambulating independently) Head: normocephalic ENT: normal ENT inspection, pharynx normal Neck: supple, + JVD Respiratory/Chest: chest non-tender, improved airway entry Cardiovascular: regular rate, rhythm, no JVD Abdomen/GI: normal bowel sounds, non tender, soft Back: normal inspection, no CVA tenderness Extremities/Musculoskelatal: + pedal edema (minimal) Neurologic/Psych: 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 II-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 nml as tested, no motor/sensory deficits, alert, oriented x 3 Skin: normal color Laboratory Results Last 24 Hours Test 01/11/18 06:01 White Blood Count 6.22 K/uL Red Blood Count 3.48 M/uL Hemoglobin 11.8 g/dL Hematocrit 35.7 % Mean Corpuscular Volume 102.6 fL Mean Corpuscular Hemoglobin 33.9 pg Mean Corpuscular Hemoglobin Concent 33.1 g/dl RDW Standard Deviation 56.7 fL RDW Coefficient of Variation 15.2 % Platelet Count 252 K/uL Mean Platelet Volume 10.3 fL Sodium Level 139 mmol/L Potassium Level 3.8 mmol/L Chloride Level 105 mmol/L Carbon Dioxide Level 27 mmol/L Anion Gap 7.0 mmol/L Blood Urea Nitrogen 15 mg/dl Creatinine 0.79 mg/dl Est Creatinine Clear Calc Drug Dose 54.1 ml/min Estimated GFR () 80.2 Estimated GFR (Non- 69.2 BUN/Creatinine Ratio 19.5 Random Glucose 94 mg/dl Calcium Level 7.6 mg/dl Magnesium Level 1.8 mg/dl Assessment and Plan 1. Acute diastolic (preserved EF) CHF in setting of hypertensive crisis She did appear to be in mild congestive heart failure on arrival although now with correction of her blood pressure on exam she does not appear to be in heart failure. It appears to have been due to diastolic heart failure related to her severe hypertension, she has not developed left ventricular dysfunction. SOB has improved as well. Patient improved with furosemide and hydralazine. Continue diltiazem and metoprolol and catapres. 2. Hypertensive crisis causing CHF exacerbation Will continue with above medicine in problem 1. It appears her BP is now controlled. Will continue to monitor her BP overnight. If it continues to be controlled, will discharge in AM. 3. Dizziness Secondary to Hypertensive urgency. Symptoms have not returned since admission 4. 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 5. Atrial Fibrillation likely chronic persistent - rhythm is paced - cont Metoprolol, Diltiazem - INR is therapeutic on current Coumadin dose 6. Ulcerative colitis - she is asymptomatic - receives daily Asacol and Mercaptopurine Spent 35 minutes in management of patient.
[2018-01-12 03:43] VITALS: BP 114/65; PULSE 68; TEMP 37; O2SAT 96
[2018-01-12 03:45] VITALS: BP 161/79; PULSE 68; TEMP 37; O2SAT 96
[2018-01-12] MEDS: LOPERAMIDE HCL 2 MG CAP PO SCH ×2 (05:26→12:00)
[2018-01-12] MEDS: RESTASIS~ORDER AWAITING ACTION SCH (06:58)
[2018-01-12] MEDS: CLONIDINE HCL 0.1 MG TAB PO SCH (07:46)
[2018-01-12] MEDS: PANTOprazole SOD 40 MG TAB PO SCH (07:46)
[2018-01-12 07:48] VITALS: BP 159/93; PULSE 96; TEMP 36.8; O2SAT 95
[2018-01-12] MEDS: CLOPIDOGREL BISULFATE 75 MG TAB PO SCH (07:48)
[2018-01-12] MEDS: TAMOXIFEN CITRATE 10 MG TAB PO SCH (07:49)
[2018-01-12] MEDS: CALCIUM 600MG + VIT D 400 IU TAB PO SCH (07:49)
[2018-01-12] MEDS: METOPROLOL SUCC 50MG EXT REL TAB PO SCH (07:49)
[2018-01-12] MEDS: FLECAINIDE ACETATE 100 MG TAB PO SCH (07:50)
[2018-01-12] MEDS: DILTIAZEM HCL 120 MG EXT REL CAP PO SCH (07:50)
[2018-01-12] MEDS: SULFASALAZINE 500 MG TAB PO SCH (07:50)
[2018-01-12 10:21] VITALS: BP 140/81; PULSE 95; O2SAT 94
[2018-01-12 10:44] VITALS: BP 151/79; PULSE 60; TEMP 36.8; O2SAT 96
[2018-01-12] MEDS ORDERED: POTA10CA28 PO ×2 (11:03→13:13)
[2018-01-12] MEDS ORDERED: LSX20 PO (11:03)
--- NOTE | 2018-01-12 11:04 | Discharge Instructions ---
Discharge Instructions Date of Service Jan 12, 2018. Admission Reason for Admission: Chf, Hypertensive Urgency Discharge Discharge Diagnosis / Problem: CHF, Hypertensive Urgency Discharge Goals Goal(s): Decrease discomfort, Improve function Activity Recommendations Activity Limitations: resume your previous activity . Instructions / Follow-Up Instructions / Follow-Up Added diuretic. Will monitor her weight. Followup with Cardio in 1-2 weeks Followup with PCP in 1-2 weeks. Current Hospital Diet Patient's current hospital diet: Low Sodium Diet (2gm Na) Discharge Diet Recommended Diet: Low Sodium Diet (2gm Na) Pending Studies Studies pending at discharge: no Medical Emergencies . Who to Call and When: Medical Emergencies: If at any time you feel your situation is an emergency, please call 911 immediately. . Non-Emergent Contact Non-Emergency issues call your: Primary Care Provider Call Non-Emergent contact if: you have any medication questions . . "Provider Documentation" section prepared by Kosta Marquez. .
--- NOTE | 2018-01-12 11:07 | Discharge Instructions ---
Discharge Instructions Date of Service Jan 12, 2018. Admission Reason for Admission: Chf, Hypertensive Urgency Discharge Discharge Diagnosis / Problem: Hypertensive urgency/ CHF Discharge Goals Goal(s): Decrease discomfort, Improve function Activity Recommendations Activity Limitations: resume your previous activity . Instructions / Follow-Up Instructions / Follow-Up Call your Primary Care doctor if any of the following symptoms or problems start or get worse: * Shortness of breath or difficulty breathing * Wake up at night short of breath * Chest pain * Cough * Swelling of your hands, feet, or legs * More fatigued or tired with your normal activity * Palpitations - sudden fast heart beats WEIGHT * Weigh yourself every morning after using the bathroom. * Use the same scale. * Wear the same amount of clothing. * Write your weight down on a chart. * Call your Primary Care doctor if you gain more than 2-3 pounds in 1-2 days. MEDICATIONS * Use this discharge instruction sheet for medication instructions. * Take your medications at the time your doctor ordered. * Do not skip a dose of your medicines. * If you miss a dose of medicine, take it as soon as possible, but DO NOT DOUBLE A DOSE. * Read your medicine information when you get home. * Know all of the side effects of your medicine. If in doubt, ask your pharmacist * Call your Primary Care doctor's office if you have any side effects. * Be sure all of your doctors know what medicine and herbs you take (including cold, flu, and herbal medicine). Take the following with you to your follow-up doctor appointments: * Weight Chart * Medication List * List of questions Do not drink excessive alcohol, beer or wine. Current Hospital Diet Patient's current hospital diet: Low Sodium Diet (2gm Na) Discharge Diet Recommended Diet: Low Sodium Diet (2gm Na) Pending Studies Studies pending at discharge: no Medical Emergencies . Who to Call and When: Call 911 or go to the Emergency Room if: * If at any time you feel your situation is an emergency * You have tightness or pain in your chest that does not go away with rest or Nitroglycerin * You are very short of breath even with rest . Non-Emergent Contact Non-Emergency issues call your: Primary Care Provider Call Non-Emergent contact if: you have any medication questions . . "Provider Documentation" section prepared by Kosta Marquez. .
[2018-01-12] MEDS ORDERED: POTASSIUM CHLORIDE 20 MEQ TABCR PO STA (11:13)
[2018-01-12] MEDS ORDERED: FUROSEMIDE 40 MG TAB PO ONE (11:15)
[2018-01-12] MEDS ORDERED: CTP1CL PO (11:29)
[2018-01-12 11:49] VITALS: BP 140/81; PULSE 95; TEMP 36.8; O2SAT 94
[2018-01-12] MEDS ORDERED: FURO-85 PO (13:13)
[2018-01-17] MEDS ORDERED: LSX20 PO (13:03)
--- NOTE | 2018-01-20 20:40 | Discharge Summary ---
Discharge Summary Date of Service Jan 12, 2018. Discharge Summary Admission Date: Jan 10, 2018 at 16:40 Discharge Date: Jan 12, 2018 Discharge Disposition: Home Principal Diagnosis: Acute diastolic (preserved EF) CHF in setting of hypertensive crisis Immunizations: Have You Had Influenza Vaccine: Yes Influenza Vaccine Date: Feb 27, 2013 History of Tetanus Vaccine?: Unknown Tetanus Immunization Date: Oct 26, 2002 History of Pneumococcal: Unknown Pneumococcal Date: Oct 27, 1999 History of Hepatitis B Vaccine: Unknown Hepatitis Immunization Date: Oct 26, 2006 Medication Reconciliation New Medications: Potassium Chloride (Micro-K Ext Rel) 10 Meq Capcr 10 MEQ PO MWF for 30 Days, #30 CAP Continued Medications: Acetaminophen (Acetaminophen) 325 Mg Tab 650 MG PO Q4H PRN for Mild Pain Calcium Carbonate (Caltrate 600) 1,500 Mg Tab 600 MG PO BID Cholecalciferol (Vitamin D3) 2,000 Unit Cap 2000 UNITS PO DAILY for 30 Days, CAP 3 Refills Clonidine Hcl (Catapres) 0.1 Mg Tab 0.1 MG PO BID for 30 Days, #60 TAB 1 Refill (This prescription has been renewed) Clopidogrel Bisulfate (Clopidogrel) 75 Mg Tab 75 MG PO QAM Cyclosporine (Ophth) (Restasis) 0.05 % Emu 1 DROP OP BID Diltiazem Hcl Extended Release (Diltiazem Hcl Er) 120 Mg Cap 120 MG PO QAM Flecainide Acetate (Tambocor) 50 Mg Tab 50 MG PO BID Loperamide Hcl (Imodium) 2 Mg Cap 2 MG PO Q6, CAP Loratadine (Claritin) 10 Mg Tab 10 MG PO DAILY PRN for UNDECIDED, TAB Mercaptopurine (Mercaptopurine) 50 Mg Tab 75 MG PO QPM Metoprolol Succinate (Toprol Xl) 100 Mg Tabcr 100 MG PO QAM, TAB Omeprazole (Prilosec) 20 Mg Cap 20 MG PO BID Oxycodone HCl (Oxycodone HCl) 5 Mg Tab 5 MG PO Q6H PRN for Severe Pain, #20 TAB Pediatric Multiple Vitamin W/ (Gummi Bear Multivitamin/M) 1 Chw Chw 2 TABS PO QAM Pitavastatin Calcium (Livalo) 4 Mg Tab 4 MG PO HS Polyethylene Glycol 3350 (Miralax) 1 Pow Pow 17 GM PO DAILY PRN for Constipation Sulfasalazine (Azulfidine) 500 Mg Tab 500 MG PO BID, TAB Tamoxifen (Nolvadex) 20 Mg Tab 20 MG PO DAILY, TAB Warfarin Sod (Warfarin Sodium) 3 Mg Tab 6 MG PO 4XWK Warfarin Sod (Jantoven) 3 Mg Tab 7.5 MG PO 3XWK, TAB MWF Discontinued Medications: Denosumab (Prolia) 60 Mg/1 Ml Inj 1 DOSE INJ q6mon Melatonin ( Melatonin) 3 Mg Tab 3 MG PO HS for 30 Days, #30 TAB 2 Refills Discharge Exam Review of Systems Constitutional: No fever, No chills Eyes: No worsening of vision ENT: No hearing loss Respiratory: No sputum Cardiac: No chest pain Abdomen: No pain Neurologic: No memory loss Psychiatric: No depression symptoms Heme: No abnormal bleeding/bruising Endo: No fatigue Physical Exam Comments: General Appearance: WD/WN, no apparent distress, + pertinent finding (Pleasant and talkative, elderly female - no distress - ambulating independently) Head: normocephalic ENT: normal ENT inspection, pharynx normal Neck: supple, + JVD Respiratory/Chest: chest non-tender, improved airway entry Cardiovascular: regular rate, rhythm, no JVD Abdomen/GI: normal bowel sounds, non tender, soft Back: normal inspection, no CVA tenderness Extremities/Musculoskelatal: + pedal edema (minimal) Neurologic/Psych: 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 Acute diastolic (preserved EF) CHF in setting of hypertensive crisis She did appear to be in mild congestive heart failure on arrival although now with correction of her blood pressure on exam she does not appear to be in heart failure. It appears to have been due to diastolic heart failure related to her severe hypertension, she has not developed left ventricular dysfunction. SOB has improved as well. Patient improved with furosemide and hydralazine. Continue diltiazem and metoprolol and catapres. Continue this as an outpatient with intermittent diuretics furosemide 10 mg MWF. Furosemide was called into pharmacy. 2. Hypertensive crisis causing CHF exacerbation Will continue with above medicine in problem 1. It appears her BP is now controlled. BP was controlled 3. Dizziness Secondary to Hypertensive urgency. Symptoms have not returned since admission 4. 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 5. Atrial Fibrillation likely chronic persistent - rhythm is paced - cont Metoprolol, Diltiazem - INR is therapeutic on current Coumadin dose 6. Ulcerative colitis - she is asymptomatic - receives daily Asacol and Mercaptopurine Total Time Spent: Greater than 30 minutes This includes examination of the patient, discharge planning, medication reconciliation, and communication with other providers. Discharge Instructions Please refer to the electronic Patient Visit Report (Discharge Instructions) for additional information. Follow-Up as noted in discharge instruction Additional Copies To Ole Spangler M.D.
== END 2018-01-12 14:15 | disposition home or self-care (01) | DRG 304 ==
LOC: EDBD 12:07 → C.EDC 12:08 → EEVIPCON 16:40 → C.2T 16:40 → ENRESERV 16:59
PROVIDERS: ADMIT Internal Medicine; ATTEND Internal Medicine
DX: I16.9 Hypertensive crisis, unspecified (principal); I50.31 Acute diastolic (congestive) heart failure; K51.90 Ulcerative colitis, unspecified, without complications; I48.1 Persistent atrial fibrillation; I48.2 Chronic atrial fibrillation; I11.0 Hypertensive heart disease with heart failure; Z85.3 Personal history of malignant neoplasm of breast; Z86.73 Personal history of transient ischemic attack (TIA), and cerebral infarction without residual deficits; Z88.0 Allergy status to penicillin; Z88.8 Allergy status to other drugs, medicaments and biological substances; Z95.0 Presence of cardiac pacemaker; E78.5 Hyperlipidemia, unspecified; M81.0 Age-related osteoporosis without current pathological fracture; D86.9 Sarcoidosis, unspecified; Z92.3 Personal history of irradiation

== ENCOUNTER → 2018-01-17 | Outpatient (CLI) | payer BC ==
[~2018-01-17] MED LIST changes: -DIPH1TAB87 PO; -DNSIS60 INJ; +FURO-85 PO; +IMD/2 PO; +LSX20 PO; -MELA1TAB5 PO; +POTA10CA28 PO
[2018-01-17 13:00] LABS: BASO % 0.6 %; BASO ABS # 0.03 K/uL (0-0.2); EOS % 1.5 %; EOS ABS # 0.08 K/uL (0-0.5); HEMATOCRIT 41.4 % (37-47); HEMOGLOBIN 13.6 g/dL (12.0-16.0); IG# 0.01 K/uL (0.00-0.02); LYMPH ABS # 1.13 K/uL (1.2-3.4); MEAN CELL VOLUME 102.7 fL (80-100); MEAN CORPUSCULAR HEMOGLOBIN 33.7 pg (25-34); MEAN CORPUSCULAR HGB CONC 32.9 g/dl (32-36); MEAN PLATELET VOLUME 10.5 fL (7.4-10.4); MONO % 16.6 %; MONO ABS # 0.89 K/uL (0.11-0.59); NEUT % 60.1 %; NEUT ABS # 3.23 K/uL (1.4-6.5); PLATELET COUNT 279 K/uL (130-400); RED CELL DISTRIBUTION WIDTH CV 15.2 % (11.5-14.5); RED CELL DISTRIBUTION WIDTH SD 57.5 fL (36.4-46.3); WHITE BLOOD COUNT 5.37 K/uL (4.8-10.8)
[2018-01-17 16:38] LABS: BLOOD UREA NITROGEN 19 mg/dl (7-18); CALCIUM 9.1 mg/dl (8.5-10.1); CARBON DIOXIDE 26 mmol/L (21-32); CREATININE 0.88 mg/dl (0.60-1.20); GLUCOSE 87 mg/dl (70-99); POTASSIUM 4.3 mmol/L (3.5-5.1); SODIUM 137 mmol/L (136-145)
== END | disposition home or self-care (01) ==
LOC: C.LABBC 11:58
PROVIDERS: ATTEND Physician Assistant Medical
DX: I50.30 Unspecified diastolic (congestive) heart failure (principal)

== ENCOUNTER 2018-08-06 04:05 | Inpatient (IN) ==
[2018-08-06] MEDS ORDERED: dilTIAZem HCl 5 MG/ML 5 ML VIAL IV STA (05:14)
[2018-08-06 05:32] LABS: Appearance Urine Clear (Clear); Bilirubin Urine Negative (Negative); Blood Urine Negative (Negative); Color Urine Yellow; Glucose Urine UA Negative (Negative); Ketones Urine Negative (Negative); Leukocyte Esterase Urine Negative (Negative); Nitrite Urine Negative (Negative); Protein Urine Negative (Negative); Urobilinogen Urine Negative (Negative)
[2018-08-06] MEDS: SODIUM CHLORIDE 0.9% 500 ML IV SCH (05:51)
[2018-08-06 05:54] LABS: Basophils # (auto) 0.04 K/uL (0-0.2); Basophils % (auto) 0.7 %; Eosinophils # (auto) 0.08 K/uL (0-0.5); Eosinophils % (auto) 1.4 %; Hematocrit (blood only) 38.4 % (37-47); Hemoglobin 12.6 g/dL (12.0-16.0); Immature Granulocytes # (auto) 0.02 K/uL (0.00-0.02); Immature Granulocytes % (auto) 0.4 %; Lymphocytes # (auto) 0.96 K/uL (1.2-3.4); Mean Corpuscular Hgb Conc 32.8 g/dL (32-36); Mean Corpuscular Volume 103.8 fL (80-100); Mean Platelet Volume 10.4 fL (7.4-10.4); Monocytes # (auto) 0.91 K/uL (0.11-0.59); Monocytes % (auto) 16.1 %; Neutrophils # (auto) 3.63 K/uL (1.4-6.5); Neutrophils % (auto) 64.4 %; Platelet Count 256 K/uL (130-400); RDW Coefficient of Variation 15.3 % (11.5-14.5); RDW Standard Deviation 58.2 fL (36.4-46.3); White Blood Count 5.64 K/uL (4.8-10.8)
[2018-08-06 06:05] LABS: INR 1.8 (0.9-1.1)
[2018-08-06 06:11] LABS: Alanine Aminotransferase 30 U/L (12-78); Albumin Level 3.4 gm/dl (3.4-5.0); Aspartate Aminotransferase 29 U/L (15-37); BUN Creatinine Ratio 18.3 (10-20); Blood Urea Nitrogen 14 mg/dl (7-18); Calcium 8.5 mg/dl (8.5-10.1); Carbon Dioxide 26 mmol/L (21-32); Chloride 109 mmol/L (98-107); Creatinine Clr Calc Pharmacy 53.3 ml/min; Est GFR (African American) 79.7; Est GFR (Non-African American) 68.7; Glucose 107 mg/dl (70-99); Potassium 3.9 mmol/L (3.5-5.1); Sodium 142 mmol/L (136-145)
[2018-08-06] MEDS ORDERED: fentaNYL citrate 100 MCG/2 ML VIAL IV STA ×2 (06:25→08:08)
[2018-08-06 06:27] LABS: Alkaline Phosphatase 44 U/L (45-117); Bilirubin,Total 0.5 mg/dl (0.2-1); Globulin 3.5 gm/dl (2.5-4.0); NT Pro B Type Natriuretic Pept 6026 pg/ml (0-1800); Total Protein 6.9 gm/dl (6.4-8.2); Troponin I < 0.015 ng/ml (0-0.045)
[2018-08-06] MEDS ORDERED: IOVERSOL 100ml IV PRN (06:31)
--- NOTE | 2018-08-06 08:27 | Emergency Department Note ---
Entered by Mimi Quintero acting as a scribe for Elva Vitale DO History of Present Illness General Chief complaint: Abdominal Pain Time Seen by Provider: 08/06/18 04:28 Source: patient History of Present Illness Onset (ago): hour(s) 1 Location: abdomen Pain Consistency: + constant Maximum Pain Intensity: 8 Quality: + other ("light pain that feels as if it's going to explode") Exacerbated By: + movement Associated symptoms: + denies other symptoms (recent cough/cold, change in BM, change in odor or color of her urine, and lower extremity swelling) and + other (increased frequency of urination); no fever/chills The patient is an 83 year old female who presents to the Emergency Room with complaints of constant left lower quadrant abdominal pain that began this morning at 0330. She describes the pain as a "light pain that feels as if it's going to explode." The patient notes that the pain radiates to her back. She states that her heart rate was 120 upon arrival in the ER. The patient reports that she felt "lazy" yesterday, but notes that she had no changes in physical activity or diet. She complains of an increased frequency of urination. She denies any recent cough/cold, fever/chills, change in BM, change in odor or color of her urine, and lower extremity swelling. The patient notes that movement worsens the symptoms. She notes a history of atrial fibrillation and CHF, noting that she takes blood thinners. The patient notes a history of ulcerative colitis, but states that she hasn't had a flare up in years. She notes that she has a pacemaker. The patient reports that she is prescribed a water pill, but she has taken it in the past week. Home Medications Home Medications Medication Instructions Recorded Confirmed Type cholecalciferol (vitamin D3) 2,000 unit PO DAILY 02/05/18 08/06/18 History [Vitamin D3] clonidine HCl 0.1 mg PO Q12 02/05/18 08/06/18 History clopidogrel [Plavix] 75 mg PO DAILY 02/05/18 08/06/18 History cyclosporine [Restasis] 1 drp OPB Q12H 02/05/18 08/06/18 History loratadine [Claritin] 10 mg PO DAILY PRN 02/05/18 08/06/18 History metoprolol succinate [Toprol XL] 100 mg PO DAILY 02/05/18 08/06/18 History pediatric multivitamin 2 tab PO DAILY 02/05/18 08/06/18 History pitavastatin calcium [Livalo] 4 mg PO HS 02/05/18 08/06/18 History polyethylene glycol 3350 [Miralax] 17 g PO DAILY PRN 02/05/18 08/06/18 History tamoxifen 20 mg PO DAILY 02/05/18 08/06/18 History loperamide 2 mg capsule 2 mg PO Q6H PRN 02/06/18 08/06/18 History mercaptopurine 50 mg tablet 75 mg PO DAILY 02/06/18 08/06/18 History diltiazem CD 240 mg 240 mg PO DAILY 03/22/18 08/06/18 History capsule,extended release 24 hr melatonin 3 mg tablet 3 mg PO HS PRN tab 04/26/18 08/06/18 History sulfasalazine 500 mg tablet 1 gm PO Q12 tab 05/16/18 08/06/18 History warfarin 3 mg tablet 3 mg PO 3XWK tab 06/19/18 08/06/18 History acetaminophen 500 mg tablet 1,000 mg PO BID tab 07/04/18 08/06/18 History calcium carbonate 600 mg calcium 600 mg PO DAILY tab 07/25/18 08/06/18 History (1,500 mg) tablet furosemide 20 mg tablet 10 mg PO 3XWK PRN 07/25/18 08/06/18 History omeprazole 20 mg delayed 20 mg PO DAILY tab 07/25/18 08/06/18 History release,disintegrating tablet potassium chloride ER 10 mEq 10 meq PO 3XWK PRN 07/25/18 08/06/18 History tablet,extended release(part/cryst) warfarin 3 mg PO 4XWK 08/06/18 08/06/18 History Allergies Allergy/AdvReac Type Severity Reaction Status Date / Time Penicillins Allergy Severe THROAT Verified 08/06/18 04:26 SWELLS, PASSES OUT aspirin Allergy Intermediate WELTS Verified 08/06/18 04:26 AROUND EYES [place] And Derivatives Allergy Mild Runny/stuffy Verified 08/06/18 04:26 nose atorvastatin Allergy Unknown Unknown Verified 08/06/18 04:26 chicken derived AdvReac Intermediate DIARRHEA Verified 08/06/18 04:26 chocolate flavor AdvReac Intermediate DIARRHEA Verified 08/06/18 04:26 lactose AdvReac Intermediate GI upset Verified 08/06/18 04:26 grass pollen-perennial rye, AdvReac Mild RUNNY Verified 08/06/18 04:26 standar NOSE/SINUS ISSUES mushroom AdvReac Mild GI SYMPTOMS Verified 08/06/18 04:26 pollen extracts AdvReac Mild RUNNY Verified 08/06/18 04:26 NOSE/SINUS ISSUES soy AdvReac Mild GI SYMPTOMS Verified 08/06/18 04:26 simvastatin AdvReac Unknown Unknown Verified 08/06/18 04:26 Dust AdvReac Mild RUNNY Uncoded 08/06/18 04:26 NOSE/SINUS ISSUES Past Med/Surg History Medical History Sarcoidosis HLD (hyperlipidemia) GERD (gastroesophageal reflux disease) Aortic stenosis Abdominal pain (Acute) HTN (hypertension) (Chronic) Atrial fibrillation (Chronic) Breast cancer (Resolved 08/27/15) "Abnormal right breast mammogram 08/01/2015 Status post biopsy 08/27/2015 10:00 lesion invasive ductal carcinoma, grade 1 Estrogen receptor positive, progesterone receptor negative, HER-2/quique negative 11:00 lesion invasive lobular carcinoma, grade 1 Estrogen receptor positive, progesterone receptor positive, HER-2/quique negative Status post lumpectomy and sentinel lymph node biopsy 09/27/2015 Lobular and ductal carcinoma Stage pT1b pN1a M0 Radiation therapy stopped 01/26/2016 received 3780 cGy. Treatments stopped early due to admission for compression fracture and inability to tolerate being in the treatment position" On 02/21/16 15:06 Frances Hogan wrote "Abnormal right breast mammogram 08/01/2015 Status post biopsy 08/27/2015 10:00 lesion invasive ductal carcinoma, grade 1 Estrogen receptor positive, progesterone receptor negative, HER-2/quique negative 11:00 lesion invasive lobular carcinoma, grade 1 Estrogen receptor positive, progesterone receptor positive, HER-2/quique negative Status post lumpectomy and sentinel lymph node biopsy 09/27/2015 Lobular and ductal carcinoma Stage pT1b pN1a M0" On 02/21/16 15:06 Frances Hogan wrote "Abnormal right breast mammogram 08/01/2015 Status post biopsy 08/27/2015 10:00 lesion invasive ductal carcinoma, grade 1 Estrogen receptor positive, progesterone receptor negative, HER-2/quique negative 11:00 lesion invasive lobular carcinoma, grade 1 Estrogen receptor positive, progesterone receptor positive, HER-2/quique negative Status post lumpectomy and sentinel lymph node biopsy 09/27/2015 Lobular and ductal carcinoma Stage pT1b pN1a M0 Status post radiation therapy, treatment stopped 01/26/2016 received 3780 cGy " On 10/14/15 13:28 Frances Hogan wrote "Abnormal right breast mammogram 08/01/2015 Status post biopsy 08/27/2015 10:00 lesion invasive ductal carcinoma, grade 1 Estrogen receptor positive, progesterone receptor negative, HER-2/quique negative 11:00 lesion invasive lobular carcinoma, grade 1 Estrogen receptor positive, progesterone receptor positive, HER-2/quique negative Status post lumpectomy and sentinel lymph node biopsy 09/27/2015 Lobular and ductal carcinoma Stage pT1b pN1a M0 " CHF (congestive heart failure) Compression fracture of L5 lumbar vertebra (Acute) Compression fracture of lumbar spine, non-traumatic (Acute) Hypertensive urgency (Acute) Incarcerated paraesophageal hernia (Acute) SSS (sick sinus syndrome) (Acute 02/18/14) Surgical History Status cardiac pacemaker Hx of cholecystectomy (Resolved) Family History Other Benign essential HTN CAD (coronary artery disease) CVA (cerebral vascular accident) PVD (peripheral vascular disease) Social History Communication Ability: Effective Beliefs That Will Affect Care: None Current Living Situation: Alone and Personal Care Facility Current Living Situation Comment: lives at the [facility] Other Information That Helps Us Care for You: No Feels Safe at Home: Yes Safety Concerns: Feels Safe At This Time Smoking Status: Never smoker Hx Alcohol Use: Yes Hx Substance Use: No Review of Systems See HPI for pertinent positives & negatives. and A total of 10 systems reviewed and were otherwise negative Physical Exam Vital Signs Vital Signs - 24 hr 08/07/18 07:20 08/07/18 07:34 08/07/18 09:00 Temperature 36.6 C Temperature Source Oral Pulse Rate 95 H Pulse Rate [Right Finger] 101 H 100 H Respiratory Rate 16 Respiratory Effort / Characteristics Respiratory Depth Blood Pressure Blood Pressure [Left Arm] 141/73 H 144/72 H Blood Pressure Mean [Left Arm] 95 96 Blood Pressure Position [Left Arm] Sitting Pulse Oximetry 96 Oxygen Delivery Method Room Air 08/07/18 11:07 08/07/18 15:33 08/07/18 16:07 Temperature 36.8 C 36.6 C Temperature Source Oral Oral Pulse Rate Pulse Rate [Right Finger] 87 99 H Respiratory Rate 16 20 Respiratory Effort / Characteristics Respiratory Depth Blood Pressure Blood Pressure [Left Arm] 144/80 H 155/110 H 116/96 Blood Pressure Mean [Left Arm] 101 125 102 Blood Pressure Position [Left Arm] Lying Sitting Lying Pulse Oximetry 96 96 Oxygen Delivery Method Room Air Room Air 08/07/18 19:26 08/07/18 20:15 08/07/18 23:50 Temperature 36.8 C 37.0 C Temperature Source Oral Pulse Rate 70 Pulse Rate [Right Finger] 85 Respiratory Rate 18 18 Respiratory Effort / Characteristics Non-Labored Respiratory Depth Normal Blood Pressure 153/89 H Blood Pressure [Left Arm] 106/76 Blood Pressure Mean [Left Arm] 86 Blood Pressure Position [Left Arm] Pulse Oximetry 93 95 Oxygen Delivery Method Room Air 08/08/18 00:15 08/08/18 03:35 Temperature 36.8 C Temperature Source Pulse Rate 82 84 Pulse Rate [Right Finger] Respiratory Rate 16 Respiratory Effort / Characteristics Respiratory Depth Blood Pressure 122/66 Blood Pressure [Left Arm] Blood Pressure Mean [Left Arm] Blood Pressure Position [Left Arm] Pulse Oximetry 97 Oxygen Delivery Method GENERAL: alert, well appearing, well nourished, no distress, non-toxic EYE EXAM: normal conjunctiva, PERRL and EOM's grossly intact OROPHARYNX: no exudate, no erythema, lips, buccal mucosa, and tongue normal and mucous membranes are moist NECK: supple, no nuchal rigidity, no adenopathy, non-tender LUNGS: Clear to auscultation. Normal chest wall mechanics HEART: no murmurs, S1 normal and S2 normal. Tachycardic with irregular rhythm CHEST WALL: Well-healed scars related to pacemaker placement both right and left anterior superior chest wall noted ABDOMEN: abdomen soft, LLQ tenderness, normo-active bowel sounds, no masses, no rebound or guarding. BACK: Back is symmetrical on inspection and there is no deformity, no midline tenderness, no CVA tenderness. SKIN: no rashes and no bruising UPPER EXTREMITIES: upper extremities are grossly normal. FROM, nml pulses b/l. LOWER EXTREMITIES: No pitting edema. FROM, nml pulses b/l. NEURO EXAM: Normal sensorium, cranial nerves II-XII grossly intact, normal speech, no gross weakness of arms, no gross weakness of legs. Course 0455: Past medical records reviewed. The patient was evaluated in room A10, and a complete history and physical examination were performed. 0830: Patient updated on all results, patient still with left lower quadrant abdominal pain. Patient intermittently feels heart racing and palpitations. 0911: Patient updated on plan at this time and is in agreement. Patient states pain improved after second dose of fentanyl. Consultations Consultation #1: Case discussed with [facility] hospitalist service for additional evaluation and treatment. Due to PACS downtime overnight and into this morning, CT of the patient's abdomen and pelvis still has not been read by radiology. This was discussed at time of presentation of the case. Administered Medications Acetaminophen (Tylenol) 1,000 mg PO BID [facility] Stop: 09/05/18 20:59 Last Admin: 08/07/18 20:25 Dose: 1,000 mg Documented by: [id number] Admin: 08/07/18 09:03 Dose: Not Given Documented by: [id number] Admin: 08/06/18 21:05 Dose: 1,000 mg Documented by: [id number] Clonidine HCl (Catapres) 0.1 mg PO Q12 [facility] Stop: 09/05/18 10:44 Last Admin: 08/07/18 20:25 Dose: 0.1 mg Documented by: [id number] Admin: 08/07/18 08:58 Dose: 0.1 mg Documented by: [id number] Cosigned by: [id number] Admin: 08/06/18 21:04 Dose: 0.1 mg Documented by: [id number] Admin: 08/06/18 11:03 Dose: 0.1 mg Documented by: [id number] Clopidogrel Bisulfate (Plavix) 75 mg PO DAILY [facility] Stop: 09/05/18 10:59 Last Admin: 08/07/18 09:00 Dose: 75 mg Documented by: [id number] Cosigned by: [id number] Admin: 08/06/18 11:40 Dose: 75 mg Documented by: [id number] Diltiazem HCl (Cardizem Cd) 240 mg PO DAILY [facility] Stop: 09/05/18 10:59 Last Admin: 08/07/18 08:58 Dose: 240 mg Documented by: [id number] Cosigned by: [id number] Admin: 08/06/18 11:41 Dose: 240 mg Documented by: [id number] Ioversol (Optiray 320 100ml) 94 ml IV ONCE PRN PRN Reason: Interaction Checking Stop: 08/10/18 06:30 Last Admin: 08/06/18 06:31 Dose: 94 ml Documented by: [id number] Mercaptopurine (Purinethol) 75 mg PO DAILY [facility] Stop: 09/05/18 10:59 Last Admin: 08/07/18 09:01 Dose: 75 mg Documented by: [id number] Cosigned by: [id number] Admin: 08/06/18 11:40 Dose: 75 mg Documented by: [id number] Cosigned by: [id number] Metoprolol Succinate (Toprol Xl) 100 mg PO DAILY [facility] Stop: 09/05/18 10:59 Last Admin: 08/07/18 09:01 Dose: 100 mg Documented by: [id number] Cosigned by: [id number] Admin: 08/06/18 11:41 Dose: 100 mg Documented by: [id number] Miscellaneous (Order Awaiting Action) 1 ea N/A QS [facility] Stop: 09/05/18 15:59 Last Admin: 08/08/18 04:04 Dose: Not Given Documented by: [id number] Admin: 08/07/18 15:35 Dose: Not Given Documented by: [id number] Admin: 08/07/18 08:29 Dose: Not Given Documented by: [id number] Admin: 08/07/18 00:04 Dose: Not Given Documented by: [id number] Admin: 08/06/18 16:58 Dose: Not Given Documented by: [id number] Miscellaneous (Order Awaiting Action) 1 ea N/A QS [facility] Stop: 09/05/18 15:59 Last Admin: 08/08/18 04:04 Dose: Not Given Documented by: [id number] Admin: 08/07/18 15:35 Dose: Not Given Documented by: [id number] Admin: 08/07/18 08:29 Dose: Not Given Documented by: [id number] Admin: 08/07/18 00:04 Dose: Not Given Documented by: [id number] Admin: 08/06/18 16:58 Dose: Not Given Documented by: [id number] Miscellaneous (Order Awaiting Action) 1 ea N/A QS [facility] Stop: 09/05/18 15:59 Last Admin: 08/08/18 04:04 Dose: Not Given Documented by: [id number] Admin: 08/07/18 15:35 Dose: Not Given Documented by: [id number] Admin: 08/07/18 08:29 Dose: Not Given Documented by: [id number] Admin: 08/07/18 00:04 Dose: Not Given Documented by: [id number] Admin: 08/06/18 16:59 Dose: Not Given Documented by: [id number] Miscellaneous (Order Awaiting Action) 1 ea N/A QS [facility] Stop: 09/05/18 15:59 Last Admin: 08/08/18 04:05 Dose: Not Given Documented by: [id number] Admin: 08/07/18 15:35 Dose: Not Given Documented by: [id number] Admin: 08/07/18 08:29 Dose: Not Given Documented by: [id number] Admin: 08/07/18 00:05 Dose: Not Given Documented by: [id number] Admin: 08/06/18 16:59 Dose: Not Given Documented by: [id number] Multivitamins/Folic Acid/Vitamin C (Flintstones Complete Chew Tab) 2 tab PO DAILY [facility] Stop: 09/05/18 10:59 Last Admin: 08/07/18 09:07 Dose: 1 tab Documented by: [id number] Cosigned by: [id number] Admin: 08/06/18 13:00 Dose: 2 tab Documented by: [id number] Pantoprazole Sodium (Protonix) 40 mg PO DAILY [facility] Stop: 09/05/18 10:59 Last Admin: 08/07/18 09:00 Dose: 40 mg Documented by: [id number] Cosigned by: [id number] Admin: 08/06/18 13:00 Dose: 40 mg Documented by: [id number] Sulfadiazine (Azulfidine) 1,000 mg PO Q12 [facility] Stop: 09/05/18 20:59 Last Admin: 08/07/18 20:24 Dose: 1,000 mg Documented by: [id number] Admin: 08/07/18 08:57 Dose: 1,000 mg Documented by: [id number] Cosigned by: [id number] Admin: 08/06/18 21:04 Dose: 1,000 mg Documented by: [id number] Tamoxifen Citrate (Nolvadex) 20 mg PO DAILY [facility] Stop: 09/05/18 09:14 Last Admin: 08/07/18 08:59 Dose: 20 mg Documented by: [id number] Cosigned by: [id number] Admin: 08/06/18 11:41 Dose: 20 mg Documented by: [id number] Cosigned by: [id number] Vitamin D (Vitamin D3) 2,000 units PO DAILY [facility] Stop: 09/06/18 08:59 Last Admin: 08/07/18 09:02 Dose: 2,000 units Documented by: [id number] Cosigned by: [id number] Warfarin Sodium (Coumadin) 3 mg PO MoWeFr@1600 [facility] Stop: 09/06/18 15:59 Last Admin: 08/07/18 16:08 Dose: 3 mg Documented by: [id number] Warfarin Sodium (Coumadin) 6 mg PO [id number]@1600 [facility] Stop: 09/05/18 15:59 Last Admin: 08/06/18 16:57 Dose: 6 mg Documented by: [id number] Discontinued Medications Diltiazem HCl (Cardizem) 10 mg IV NOW [facility] Stop: 08/06/18 05:15 Last Admin: 08/06/18 05:50 Dose: 10 mg Documented by: [id number] Cosigned by: [id number] Enoxaparin Sodium (Lovenox) 40 mg SQ Q24H [facility] Stop: 09/05/18 09:14 Last Admin: 08/07/18 09:22 Dose: Not Given Documented by: [id number] Fentanyl Citrate (Fentanyl Citrate) 50 mcg IV NOW STA Stop: 08/06/18 06:26 Last Admin: 08/06/18 06:47 Dose: 50 mcg Documented by: [id number] Fentanyl Citrate (Fentanyl Citrate) 50 mcg IV NOW STA Stop: 08/06/18 08:09 Last Admin: 08/06/18 08:21 Dose: 50 mcg Documented by: [id number] Fentanyl Citrate (Fentanyl Citrate) 50 mcg IV Q4H PRN PRN Reason: Pain Stop: 08/20/18 10:33 Last Admin: 08/06/18 11:03 Dose: 50 mcg Documented by: [id number] Sodium Chloride (Nss) 500 mls @ 125 mls/hr IV .Q4H [facility] Stop: 09/05/18 05:14 Last Admin: 08/07/18 09:22 Dose: Not Given Documented by: [id number] Infusion: 08/07/18 09:22 Dose: 0 mls/hr Documented by: [id number] Infusion: 08/06/18 10:01 Dose: 0 mls/hr Documented by: [id number] Infusion: 08/06/18 06:45 Dose: 0 mls/hr Documented by: [id number] Admin: 08/06/18 05:51 Dose: 125 mls/hr Documented by: [id number] Furosemide 20 mg/ Syringe 2 mls @ 4 mls/min IV NOW ONE Stop: 08/06/18 11:01 Last Admin: 08/06/18 11:41 Dose: 4 mls/min Documented by: [id number] Warfarin Sodium (Coumadin) 3 mg PO ONCE [facility] Stop: 08/06/18 16:22 Last Admin: 08/06/18 17:27 Dose: 3 mg Documented by: [id number] Medical Decision Making Differential Diagnosis Etiologies such as biliary colic, cholecystitis, hepatitis, perihepatitis, pancreatitis, cardiac disease, pancreatitis, gastritis, peptic ulcer disease, appendicitis, ovarian cyst, ovarian torsion, ectopic , pelvic infla mmatory disease, cystitis, diverticulitis, mesenteric ischemia, inflammatory bowel disease, ileus, bowel obstruction, aortic pathology, shingles, as well as others were considered. Medical Records Attestation: I reviewed the patient's medical records. Home Medications Current Medication List: was personally reviewed by me Laboratory Data Attestation: I reviewed the patient's lab results. Result diagrams: 08/07/18 06:02 08/07/18 06:02 Lab Results 08/06/18 08/06/18 08/06/18 Range/Units 04:40 05:40 05:40 WBC 5.64 (4.8-10.8) K/uL RBC 3.70 L (4.2-5.4) M/uL Hgb 12.6 (12.0-16.0) g/dL Hct 38.4 (37-47) % MCV 103.8 H (80-100) fL MCH 34.1 H (25-34) pg MCHC 32.8 (32-36) g/dL RDW Std Deviation 58.2 H (36.4-46.3) fL RDW Coeff of Terrance 15.3 H (11.5-14.5) % Plt Count 256 (130-400) K/uL MPV 10.4 (7.4-10.4) fL Immature Gran % (Auto) 0.4 % Neut % (Auto) 64.4 % Lymph % (Auto) 17.0 % [place] % (Auto) 16.1 % Eos % (Auto) 1.4 % Baso % (Auto) 0.7 % Immature Gran # (Auto) 0.02 (0.00-0.02) K/uL Neut # (Auto) 3.63 (1.4-6.5) K/uL Lymph # (Auto) 0.96 L (1.2-3.4) K/uL [place] # (Auto) 0.91 H (0.11-0.59) K/uL Eos # (Auto) 0.08 (0-0.5) K/uL Baso # (Auto) 0.04 (0-0.2) K/uL PT (9.0-12.0) Seconds INR (0.9-1.1) Sodium 142 (136-145) mmol/L Potassium 3.9 (3.5-5.1) mmol/L Chloride 109 H (98-107) mmol/L Carbon Dioxide 26 (21-32) mmol/L Anion Gap 7.0 (3-11) BUN 14 (7-18) mg/dl Creatinine 0.79 (0.6-1.2) mg/dl Est Cr Clr Drug Dosing 53.3 ml/min Est GFR ( Amer) 79.7 Est GFR (Non-Af Amer) 68.7 BUN/Creatinine Ratio 18.3 (10-20) Glucose 107 H (70-99) mg/dl Calcium 8.5 (8.5-10.1) mg/dl Phosphorus (2.5-4.9) mg/dl Magnesium 2.0 (1.8-2.4) mg/dl Total Bilirubin 0.5 (0.2-1) mg/dl AST 29 (15-37) U/L ALT 30 (12-78) U/L Alkaline Phosphatase 44 L (45-117) U/L Troponin I < 0.015 (0-0.045) ng/ml NT-Pro-B Natriuret Pep 6026 H (0-1800) pg/ml Total Protein 6.9 (6.4-8.2) gm/dl Albumin 3.4 (3.4-5.0) gm/dl Globulin 3.5 (2.5-4.0) gm/dl Albumin/Globulin Ratio 1.0 (0.9-2) Lipase 57 L (73-393) U/L Urine Color Yellow Urine Appearance Clear (Clear) Urine pH 8.0 H (4.5-7.5) Ur Specific [place] 1.010 (1.000-1.030) Urine Protein Negative (Negative) Urine Glucose (UA) Negative (Negative) Urine Ketones Negative (Negative) Urine Blood Negative (Negative) Urine Nitrite Negative (Negative) Urine Bilirubin Negative (Negative) Urine Urobilinogen Negative (Negative) Ur Leukocyte Esterase Negative (Negative) 08/06/18 08/07/18 08/07/18 Range/Units 05:40 06:02 06:02 WBC 4.18 L (4.8-10.8) K/uL RBC 3.53 L (4.2-5.4) M/uL Hgb 11.9 L (12.0-16.0) g/dL Hct 36.7 L (37-47) % MCV 104.0 H (80-100) fL MCH 33.7 (25-34) pg MCHC 32.4 (32-36) g/dL RDW Std Deviation 57.7 H (36.4-46.3) fL RDW Coeff of Terrance 15.2 H (11.5-14.5) % Plt Count 240 (130-400) K/uL MPV 10.6 H (7.4-10.4) fL Immature Gran % (Auto) 0.2 % Neut % (Auto) 52.2 % Lymph % (Auto) 22.7 % [place] % (Auto) 21.8 % Eos % (Auto) 2.4 % Baso % (Auto) 0.7 % Immature Gran # (Auto) 0.01 (0.00-0.02) K/uL Neut # (Auto) 2.18 (1.4-6.5) K/uL Lymph # (Auto) 0.95 L (1.2-3.4) K/uL [place] # (Auto) 0.91 H (0.11-0.59) K/uL Eos # (Auto) 0.10 (0-0.5) K/uL Baso # (Auto) 0.03 (0-0.2) K/uL PT 18.0 H 18.2 H (9.0-12.0) Seconds INR 1.8 H 1.9 H (0.9-1.1) Sodium (136-145) mmol/L Potassium (3.5-5.1) mmol/L Chloride (98-107) mmol/L Carbon Dioxide (21-32) mmol/L Anion Gap (3-11) BUN (7-18) mg/dl Creatinine (0.6-1.2) mg/dl Est Cr Clr Drug Dosing ml/min Est GFR ( Amer) Est GFR (Non-Af Amer) BUN/Creatinine Ratio (10-20) Glucose (70-99) mg/dl Calcium (8.5-10.1) mg/dl Phosphorus (2.5-4.9) mg/dl Magnesium (1.8-2.4) mg/dl Total Bilirubin (0.2-1) mg/dl AST (15-37) U/L ALT (12-78) U/L Alkaline Phosphatase (45-117) U/L Troponin I (0-0.045) ng/ml NT-Pro-B Natriuret Pep (0-1800) pg/ml Total Protein (6.4-8.2) gm/dl Albumin (3.4-5.0) gm/dl Globulin (2.5-4.0) gm/dl Albumin/Globulin Ratio (0.9-2) Lipase (73-393) U/L Urine Color Urine Appearance (Clear) Urine pH (4.5-7.5) Ur Specific [place] (1.000-1.030) Urine Protein (Negative) Urine Glucose (UA) (Negative) Urine Ketones (Negative) Urine Blood (Negative) Urine Nitrite (Negative) Urine Bilirubin (Negative) Urine Urobilinogen (Negative) Ur Leukocyte Esterase (Negative) 08/07/18 Range/Units 06:02 WBC (4.8-10.8) K/uL RBC (4.2-5.4) M/uL Hgb (12.0-16.0) g/dL Hct (37-47) % MCV (80-100) fL MCH (25-34) pg MCHC (32-36) g/dL RDW Std Deviation (36.4-46.3) fL RDW Coeff of Terrance (11.5-14.5) % Plt Count (130-400) K/uL MPV (7.4-10.4) fL Immature Gran % (Auto) % Neut % (Auto) % Lymph % (Auto) % [place] % (Auto) % Eos % (Auto) % Baso % (Auto) % Immature Gran # (Auto) (0.00-0.02) K/uL Neut # (Auto) (1.4-6.5) K/uL Lymph # (Auto) (1.2-3.4) K/uL [place] # (Auto) (0.11-0.59) K/uL Eos # (Auto) (0-0.5) K/uL Baso # (Auto) (0-0.2) K/uL PT (9.0-12.0) Seconds INR (0.9-1.1) Sodium 141 (136-145) mmol/L Potassium 3.9 (3.5-5.1) mmol/L Chloride 110 H (98-107) mmol/L Carbon Dioxide 27 (21-32) mmol/L Anion Gap 4.0 (3-11) BUN 10 (7-18) mg/dl Creatinine 0.70 (0.6-1.2) mg/dl Est Cr Clr Drug Dosing 58.1 ml/min Est GFR ( Amer) 92.2 Est GFR (Non-Af Amer) 79.6 BUN/Creatinine Ratio 14.9 (10-20) Glucose 83 (70-99) mg/dl Calcium 8.1 L (8.5-10.1) mg/dl Phosphorus 2.9 (2.5-4.9) mg/dl Magnesium 1.9 (1.8-2.4) mg/dl Total Bilirubin 0.5 (0.2-1) mg/dl AST 23 (15-37) U/L ALT 24 (12-78) U/L Alkaline Phosphatase 38 L (45-117) U/L Troponin I (0-0.045) ng/ml NT-Pro-B Natriuret Pep (0-1800) pg/ml Total Protein 5.9 L (6.4-8.2) gm/dl Albumin 2.8 L (3.4-5.0) gm/dl Globulin 3.1 (2.5-4.0) gm/dl Albumin/Globulin Ratio 0.9 (0.9-2) Lipase (73-393) U/L Urine Color Urine Appearance (Clear) Urine pH (4.5-7.5) Ur Specific [place] (1.000-1.030) Urine Protein (Negative) Urine Glucose (UA) (Negative) Urine Ketones (Negative) Urine Blood (Negative) Urine Nitrite (Negative) Urine Bilirubin (Negative) Urine Urobilinogen (Negative) Ur Leukocyte Esterase (Negative) ECG Data Attestation: I personally reviewed and interpreted this ECG as follows: Indication: abdominal pain Rate (beats per minute): 155 Rhythm: atrial fibrillation Findings: + other (normal axis, normal QTc, normal QRS); no acute ischemic change Blood Pressure Blood Pressure Findings: Elevated blood pressure Blood Pressure Disposition: Referred to patients primary care provider TONE Narrative Pt with persistent LLQ pain of unclear etiology. Pt with mild hypoxia noted here, no home oxygen, no obvious CHF or ACS. Pt seen during a period of PACS downtime and after considerable time waiting, I discussed the case with the hospitalist given persistent pain and need for IV pain control in the interim. Pt in her chronic a.fib, slightly subtherapeutic INR and mild hypoxia. I do not suspect PE. Pt HR decreased with IV cardizem. Pt kept NPO while awaiting the CT results as a precaution. Pt's labs reassuring. UA without evidence of infection. Unclear etiology of pain at this time, awaiting CT results. This was discussed with hospitalist team at the time of presentation for additional evaluation/mgmt. Impression & Plan Abdominal pain, Atrial fibrillation, Hypoxia, Frequent PVCs, Subtherapeutic international normalized ratio (INR) Discharge Plan Visit Data *Final* Discharge Date/Time: 08/06/18 10:21 Chief Complaint: Abdominal Pain ED Provider: Elva Vitale Discharge Problem: Abdominal pain, Atrial fibrillation, Hypoxia, Frequent PVCs, Subtherapeutic international normalized ratio (INR) Patient Disposition: Admitted As Inpatient Condition: Good Discharge Instructions Interventions: ED Discharge Assessment Last Done: 08/06/18 10:21 Discharge Problem: Abdominal pain Qualifiers: Abdominal location: left lower quadrant Qualified Code(s): R10.32 - Left lower quadrant pain The scribe's documentation has been prepared under my direction and personally reviewed by me in its entirety. I confirm that the note above accurately reflects all work, treatment, procedures, and medical decision making performed by me.
--- NOTE | 2018-08-06 09:12 | History & Physical Report ---
Date of Service August 06, 2018 Assessment & Plan (1) Abdominal pain: - Admit to med surg with tele - CT abd showing fibroid uterus and thickened endometrium which may be contributing to abdominal pain - will consult CHARACTER ACTOR since does not appear infectious - Pt admits to increased urinary frequency however UA appears negative for infection - Sigmoid diverticulosis without CT evidence of acute diverticulitis. - Continue IV toradol for pain, kidney function is good. - Keep NPO for now except sips and chips (2) CHF (congestive heart failure): - Diastolic with LVEF of 55-60% in Dec 2017. - CT showing cardiomegaly and cardiac pacemaker. Intralobular septal thickening at the lung bases suggests congestive failure. Also showing small right and trace left pleural effusions. Pt does have some baseline hypoxia with O2 sats =90%, however does not complain of specific SOB. - will give small dose of IV lasix to see if this improves. Pt was given IV in the ER which have been stopped at this point. Her last home dose of lasix was 4 days ago. - Strict I/Os. - Follows with our cardiology team as outpatient. (3) HTN (hypertension): - Continue home antihypertensives (4) Atrial fibrillation: - Paroxysmal, currently in afib, pt missed morning medications. IV diltiazem was administered in the ER and worked for a short time period. Resume Diltiazem CD 240 mg now, metoprolol succinate 100 mg daily, clonidine 0.1 mg Q12H - Continue coumadin alternating doses: MWF 3 mg and all other days 6 mg - INR 1.8, subtherapeutic, follow am labs. Pt will get 6 mg tonight. (5) SSS (sick sinus syndrome): (6) Status cardiac pacemaker: - Inserted d/t SSS as above. - Dual chamber, batter longevity projected at 4.5 yrs during last f/u with Dr. Parkinson in Feb 2018. (7) Aortic stenosis: - Mild to moderate. (8) GERD (gastroesophageal reflux disease): - Continue PPI (9) HLD (hyperlipidemia): (10) Sarcoidosis: - Stable (11) Compression fracture of lumbar spine, non-traumatic: (12) Compression fracture of L5 lumbar vertebra: - Noted, stable. Pt ambulates with walker sometimes, does not use in her home. - PT/OT consults (13) CVA (cerebrovascular accident): - Hx about 20 yrs ago x 2 different events. Continue plavix and coumadin (14) Ulcerative colitis: - Last flare was 3 mo ago. Continue on sulfasalazine (15) DVT prophylaxis: - Coumadin History of Present Illness Chief Complaint: Abd pain Primary Care Provider: Ole Spangler MD This is an 83 yo F with PMHx of CHF, HTN, HLD, paroxysmal afib on coumadin, hx of CVA on plavix, SSS s/p pacemaker, breast cancer, GERD, aortic stenosis, compression fracture of the lumbar spine, ulcerative colitis, who presents with acute onset of abdominal pain last night. She reports the pain is in the LLQ, rates it as a 8/10, and "feels like it could explode". Deep breaths aggravate pain, no other alleviating factors. The patient denies nausea/vomiting, diarrhea or constipation. She had a UC flare about 3 months ago however this pain is different than sx such as diarrhea which she experiences during a UC flare. She denies fever, chills or sweats. Pt denies any acute trauma or injury. After two doses of IV fentanyl her pain was much better. While the patient was in the ER overnight, it was noted that during ambulation to bathroom her O2 sats were dropping down to 90%, she typically does not need O2, and feels well with ambulation. She admits to increased fatigue with minimal activities today. Denies recent URI, sick contacts, SOB and cough. CT of the abd is in process, but due to a system downtime/upgrade, the read of this image had not been available for viewing overnight. Allergies Allergy/AdvReac Type Severity Reaction Status Date / Time Penicillins Allergy Severe THROAT Verified 08/06/18 04:26 SWELLS, PASSES OUT aspirin Allergy Intermediate WELTS Verified 08/06/18 04:26 AROUND EYES [place] And Derivatives Allergy Mild Runny/stuffy Verified 08/06/18 04:26 nose atorvastatin Allergy Unknown Unknown Verified 08/06/18 04:26 chicken derived AdvReac Intermediate DIARRHEA Verified 08/06/18 04:26 chocolate flavor AdvReac Intermediate DIARRHEA Verified 08/06/18 04:26 lactose AdvReac Intermediate GI upset Verified 08/06/18 04:26 grass pollen-perennial rye, AdvReac Mild RUNNY Verified 08/06/18 04:26 standar NOSE/SINUS ISSUES mushroom AdvReac Mild GI SYMPTOMS Verified 08/06/18 04:26 pollen extracts AdvReac Mild RUNNY Verified 08/06/18 04:26 NOSE/SINUS ISSUES soy AdvReac Mild GI SYMPTOMS Verified 08/06/18 04:26 simvastatin AdvReac Unknown Unknown Verified 08/06/18 04:26 Dust AdvReac Mild RUNNY Uncoded 08/06/18 04:26 NOSE/SINUS ISSUES Home Medications Home Medications Medication Instructions Recorded Confirmed Type cholecalciferol (vitamin D3) 2,000 unit PO DAILY 02/05/18 08/06/18 History [Vitamin D3] clonidine HCl 0.1 mg PO Q12 02/05/18 08/06/18 History clopidogrel [Plavix] 75 mg PO DAILY 02/05/18 08/06/18 History cyclosporine [Restasis] 1 drp OPB Q12H 02/05/18 08/06/18 History loratadine [Claritin] 10 mg PO DAILY PRN 02/05/18 08/06/18 History metoprolol succinate [Toprol XL] 100 mg PO DAILY 02/05/18 08/06/18 History pediatric multivitamin 2 tab PO DAILY 02/05/18 08/06/18 History pitavastatin calcium [Livalo] 4 mg PO HS 02/05/18 08/06/18 History polyethylene glycol 3350 [Miralax] 17 g PO DAILY PRN 02/05/18 08/06/18 History tamoxifen 20 mg PO DAILY 02/05/18 08/06/18 History loperamide 2 mg capsule 2 mg PO Q6H PRN 02/06/18 08/06/18 History mercaptopurine 50 mg tablet 75 mg PO DAILY 02/06/18 08/06/18 History diltiazem CD 240 mg 240 mg PO DAILY 03/22/18 08/06/18 History capsule,extended release 24 hr melatonin 3 mg tablet 3 mg PO HS PRN tab 04/26/18 08/06/18 History sulfasalazine 500 mg tablet 1 gm PO Q12 tab 05/16/18 08/06/18 History warfarin 3 mg tablet 3 mg PO 3XWK tab 06/19/18 08/06/18 History acetaminophen 500 mg tablet 1,000 mg PO BID tab 07/04/18 08/06/18 History calcium carbonate 600 mg calcium 600 mg PO DAILY tab 07/25/18 08/06/18 History (1,500 mg) tablet furosemide 20 mg tablet 10 mg PO 3XWK PRN 07/25/18 08/06/18 History omeprazole 20 mg delayed 20 mg PO DAILY tab 07/25/18 08/06/18 History release,disintegrating tablet potassium chloride ER 10 mEq 10 meq PO 3XWK PRN 07/25/18 08/06/18 History tablet,extended release(part/cryst) warfarin 3 mg PO 4XWK 08/06/18 08/06/18 History Past Med/Surg History Medical History Sarcoidosis HLD (hyperlipidemia) GERD (gastroesophageal reflux disease) Aortic stenosis Abdominal pain (Acute) HTN (hypertension) (Chronic) Atrial fibrillation (Chronic) Breast cancer (Resolved 08/27/15) "Abnormal right breast mammogram 08/01/2015 Status post biopsy 08/27/2015 10:00 lesion invasive ductal carcinoma, grade 1 Estrogen receptor positive, progesterone receptor negative, HER-2/quique negative 11:00 lesion invasive lobular carcinoma, grade 1 Estrogen receptor positive, progesterone receptor positive, HER-2/quique nega tive Status post lumpectomy and sentinel lymph node biopsy 09/27/2015 Lobular and ductal carcinoma Stage pT1b pN1a M0 Radiation therapy stopped 01/26/2016 received 3780 cGy. Treatments stopped early due to admission for compression fracture and inability to tolerate being in the treatment position" On 02/21/16 15:06 Frances Hogan wrote "Abnormal right breast mammogram 08/01/2015 Status post biopsy 08/27/2015 10:00 lesion invasive ductal carcinoma, grade 1 Estrogen receptor positive, progesterone receptor negative, HER-2/quique negative 11:00 lesion invasive lobular carcinoma, grade 1 Estrogen receptor positive, progesterone receptor positive, HER-2/quique negative Status post lumpectomy and sentinel lymph node biopsy 09/27/2015 Lobular and ductal carcinoma Stage pT1b pN1a M0" On 02/21/16 15:06 Frances Hogan wrote "Abnormal right breast mammogram 08/01/2015 Status post biopsy 08/27/2015 10:00 lesion invasive ductal carcinoma, grade 1 Estrogen receptor positive, progesterone receptor negative, HER-2/quique negative 11:00 lesion invasive lobular carcinoma, grade 1 Estrogen receptor positive, progesterone receptor positive, HER-2/quique negative Status post lumpectomy and sentinel lymph node biopsy 09/27/2015 Lobular and ductal carcinoma Stage pT1b pN1a M0 Status post radiation therapy, treatment stopped 01/26/2016 received 3780 cGy " On 10/14/15 13:28 Frances Hgoan wrote "Abnormal right breast mammogram 08/01/2015 Status post biopsy 08/27/2015 10:00 lesion invasive ductal carcinoma, grade 1 Estrogen receptor positive, progesterone receptor negative, HER-2/quique negative 11:00 lesion invasive lobular carcinoma, grade 1 Estrogen receptor positive, progesterone receptor positive, HER-2/quique negative Status post lumpectomy and sentinel lymph node biopsy 09/27/2015 Lobular and ductal carcinoma Stage pT1b pN1a M0 " CHF (congestive heart failure) Compression fracture of L5 lumbar vertebra (Acute) Compression fracture of lumbar spine, non-traumatic (Acute) Hypertensive urgency (Acute) Incarcerated paraesophageal hernia (Acute) SSS (sick sinus syndrome) (Acute 02/18/14) Surgical History Status cardiac pacemaker Hx of cholecystectomy (Resolved) Family History Other Benign essential HTN CAD (coronary artery disease) CVA (cerebral vascular accident) PVD (peripheral vascular disease) Social History Preferred Language: Scottish Communication Ability: Effective 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 Beliefs That Will Affect Care: None Current Living Situation: Alone and Personal Care Facility Current Living Situation Comment: lives at the [facility] Other Information That Helps Us Care for You: No Feels Safe at Home: Yes Safety Concerns: Feels Safe At This Time Smoking Status: Never smoker Hx Alcohol Use: Yes Hx Substance Use: No Review of Systems Constitutional: No fever, sweats or chills Eyes: No diplopia, no worsening or blurred vision ENT: normal hearing, no trouble swallowing Respiratory: No cough, sputum, dyspnea at rest or on exertion Cardiovascular: No chest pain, tightness or palpitations Abdomen: See HPI. No pain, nausea, vomiting, diarrhea or constipation Musculoskeletal: No joint pain, calf pain, swelling Neurologic: No weakness, numbness/tingling, or balance problems Psychiatric: No anxiety or depression Skin: No rash or itch Physical Exam Vital Signs (Past 24 Hours): Last Vital Signs Temp 36.4 C L 08/06/18 04:08 Pulse 102 H 08/06/18 08:51 Resp 20 08/06/18 08:51 BP 167/107 H 08/06/18 08:51 Pulse Ox 95 08/06/18 08:51 Physical Exam: General: awake, alert, no apparent distress Head: Normocephalic, atraumatic ENT: PERRL, EOMI, no pharyngeal exudate, mucous membranes moist Chest: Clear to auscultation in upper degroot, diminished at bases bilaterally, on 2L via NC, no adventitious breath sounds Cardiac: irregularly irregular, + loud LIZETH with radiation to back and carotids, + HR in low 100s at bedside, no JVD, normal peripheral pulses, good capillary refill Abdominal: NABS x 4 quadrants, soft, nontender to palpation, no rebound, guarding or tenderness Extremities: Normal inspection, 1+ peripheral edema, no erythema, calfs nontender to palpation Psych: Normal mood and affect Neuro: AAO x 3, strength intact bilaterally and related 5/5, no motor deficits, speech is clear, no peripheral sensory deficits Results & Data Diagnostic Findings XR chest 1V portable HISTORY: Short of breath. COMPARISON: Chest 01/10/2018. FINDINGS: No pneumothorax. Small left pleural effusion persist. The heart remains mildly enlarged. Left-sided dual-chamber pacemaker. Pulmonary basilar vascular congestion has improved. Left basilar densities persist. IMPRESSION: 1. Interval improvement in the pulmonary vascular congestion. 2. Small left pleural effusion and left basilar densities persist. CT SCAN OF THE ABDOMEN AND PELVIS WITH IV CONTRAST CLINICAL HISTORY: Left lower quadrant abdominal pain. COMPARISON STUDY: Abdominal CT dated 12/05/2014. TECHNIQUE: Following the IV administration of 94 cc of Optiray 320, CT scan of the abdomen and pelvis is performed from the lung bases to the proximal femora. Images are reviewed in the axial, sagittal, and coronal planes. IV contrast was administered without complication. A dose lowering technique was utilized adhering to the principles of ALARA. CT DOSE: 595.52 mGy.cm FINDINGS: Lung bases: The heart is enlarged and without pericardial effusion. The coronary arteries and mitral annulus are densely calcified. Pacemaker leads are noted. There are small right and trace left pleural effusions with associated atelectasis. Intralobular septal thickening is noted at both lung bases. No airspace consolidation is seen typical for pneumonia. There is a tiny hiatal hernia. Liver: The contrast-enhanced liver is normal in size, contour, and attenuation. There is no intrahepatic biliary ductal dilatation. The hepatic veins and portal veins are patent. Gallbladder: Unremarkable. Spleen: Normal in size and attenuation. There are calcified splenic granulomas. Pancreas: Atrophic and grossly unremarkable. Adrenal glands: Unremarkable. Kidneys: The contrast enhanced kidneys are atrophic and without hydronephrosis. The kidneys enhance symmetrically. A 1.3 cm exophytic cyst arises from the interpolar left kidney. Additional subcentimeter cortical hypodensities also likely represent cysts but are too small for definitive characterization. A 3 mm nonobstructing calculus is noted on the left. Abdominal vasculature: The abdominal aorta is normal in course and caliber noting moderate to advanced atherosclerotic calcification. Bowel: There is moderate sigmoid diverticulosis without CT evidence of acute diverticulitis. Colonic fecal retention is observed. No bowel obstruction is seen. The appendix is not identified. Peritoneum: There is no intraperitoneal free air or abdominal ascites. Lymphadenopathy: None. Pelvic viscera: Although decompressed, the bladder wall appears mildly thickened and there is pericystic stranding. The endometrium appears thickened for age, measuring up to 8 mm. A fibroid in the fundal region measures up to 3.5 cm. No adnexal lesion is seen. Skeletal structures: The skeletal structures are osteopenic. Moderate to advanced lumbar sacral spondylosis is observed. There are compression deformities of T11, T12, L2, L4, and L5 with evidence of previous vertebroplasty at L2 and L5. No lytic or blastic lesions are seen. IMPRESSION: 1. Cardiomegaly and cardiac pacemaker. Intralobular septal thickening at the lung bases suggests congestive failure. Clinical correlation will be required. 2. Small right and trace left pleural effusions. 3. Question cystitis. Correlation with clinical findings and urinalysis will be required. 4. Sigmoid diverticulosis without CT evidence of acute diverticulitis. 5. Left-sided nephrolithiasis. 6. Fibroid uterus. 7. The endometrium appears thickened for age measuring up to 8mm in thickness. Gynecology assessment and follow-up pelvic ultrasound are recommended. 8. Additional findings as above. ECG Additional Comments: 06-AUG-2018 04:38:38 [facility] Atrial flutter with variable A-V block Nonspecific ST and T wave abnormality Abnormal ECG When compared with ECG of 02-APR-2018 08:07, Atrial flutter has replaced Atrial fibrillation Nonspecific T wave abnormality now evident in Anterior leads T wave inversion no longer evident in Lateral leads 25mm/s 10mm/mV 150Hz 8.0 SP2 12SL 241 ARNAV: 16 Referred by: [facility] Unconfirmed Vent. rate 115 BPM ME interval * ms QRS duration 96 ms QT/QTc 346/478 ms P-R-T axes * 41 211 Code Status & VTE Plan Code Status DNR Supervising Physician Co-Signing Physician Notes Patient seen and examined, discussed with physician commercial assistant about patient condition and care plan, agree current care plan, Subjective: Left lower abdominal pain significant better, only mild pain when deep press Denies nausea vomiting abdominal pain diarrhea constipation, had mod bowel movement yesterday Review of Systems Constitutional: positive weakness, or fatigue Respiratory: no cough, sputum, wheezing, or dyspnea on exertion Cardiac: No chest pain, No orthopnea, No PND, No claudication, No palpitations, Abdomen: see above Musculoskeletal: No joint pain, No muscle pain, No swelling, No calf pain, No problem reported : No dysuria, No urinary frequency, No incontinence, No hematuria Neurologic: No paralysis, No weakness, No numbness/tingling, Objective: General Appearance: WD/WN, no apparent distress, Eyes: normal inspection, PERRL, EOMI, sclerae normal ENT: normal ENT inspection, hearing grossly normal, pharynx normal Neck: supple, no adenopathy, thyroid normal, no JVD, no carotid bruits, trachea midline Respiratory/Chest: chest non-tender, normal breath sounds, no respiratory distress, no accessory muscle use, breath sounds, rales, wheezing Cardiovascular: irregular rate, rhythm, no JVD, no murmur Abdomen: only mild pain when deep press, in LLQ, normal bowel sounds, non tender, soft, no organomegaly, Extremities: normal range of motion, non-tender, normal inspection, no pedal edema, no calf tenderness, normal capillary refill, pelvis stable, joint has no limited range of motion, capillary refill is normal, no cyanosis clubbing Neurologic/Psychiatric: insole tack puller hand II-XII nml as tested, no motor/sensory deficits, alert, normal mood/affect, oriented x 3 Skin: normal color, warm/dry, no rash Lymphatic: no adenopathy Assessment and plan: 83-year-old white female admitted because of CHF exacerbation possible CHF which is acute on chronic Diastolic with LVEF of 55-60% in Dec 2017. cont small dose of IV lasix , Strict I/Os, Follows with our cardiology team as outpatient. Left lwoer Abdominal pain: Etiology unknown, could be related to constipation, muscle sprain, patient has no leukocytosis no fever and chills, no other GI symptom, will not give antibiotics for now ok clear liquid diet Accelerated hypertension, ordered lopressor every 4 hours as needed for accelerated hypertension Atrial fibrillation: INR 1.8, subtherapeutic, hx of 2 CVA, discussed with Coumadin clinic, will give additional 3 mg of Coumadin tonight Continue current care (1) Abdominal pain Abdominal location: left lower quadrant Qualified Code(s): R10.32 - Left lower quadrant pain
[2018-08-06] MEDS ORDERED: ACETAMINOPHEN 325 MG TAB PO PRN (09:13)
[2018-08-06] MEDS ORDERED: ONDANSETRON INJ 2 MG/ML 2 ML VIAL IV PRN (09:13)
[2018-08-06] MEDS ORDERED: POLYETHYLENE (MIRALAX) 17 GM PACK PO PRN (09:14)
[2018-08-06] MEDS ORDERED: LORATADINE 10 MG TAB PO PRN (09:14)
[2018-08-06] MEDS ORDERED: LOPERAMIDE HCL 2 MG CAP PO PRN (09:14)
[2018-08-06] MEDS ORDERED: FUROSEMIDE 20 MG TAB PO PRN (09:14)
[2018-08-06] MEDS ORDERED: POTASSIUM CHLORIDE 10 MEQ TABCR PO PRN (09:14)
[2018-08-06] MEDS ORDERED: ENOXAPARIN INJ 40 MG/0.4 ML SYR SQ SCH (09:15)
--- NOTE | 2018-08-06 09:52 | CT Scan Report ---
CT SCAN OF THE ABDOMEN AND PELVIS WITH IV CONTRAST CLINICAL HISTORY: Left lower quadrant abdominal pain. COMPARISON STUDY: Abdominal CT dated 12/05/2014. TECHNIQUE: Following the IV administration of 94 cc of Optiray 320, CT scan of the abdomen and pelvi s is performed from the lung bases to the proximal femora. Images are reviewed in the axial, sagittal , and coronal planes. IV contrast was administered without complication. A dose lowering technique wa s utilized adhering to the principles of ALARA. CT DOSE: 595.52 mGy.cm FINDINGS: Lung bases: The heart is enlarged and without pericardial effusion. The coronary arteries and mitral annulus are densely calcified. Pacemaker leads are noted. There are small right and trace left pleura l effusions with associated atelectasis. Intralobular septal thickening is noted at both lung bases. No airspace consolidation is seen typical for pneumonia. There is a tiny hiatal hernia. Liver: The contrast-enhanced liver is normal in size, contour, and attenuation. There is no intrahepa tic biliary ductal dilatation. The hepatic veins and portal veins are patent. Gallbladder: Unremarkable. Spleen: Normal in size and attenuation. There are calcified splenic granulomas. Pancreas: Atrophic and grossly unremarkable. Adrenal glands: Unremarkable. Kidneys: The contrast enhanced kidneys are atrophic and without hydronephrosis. The kidneys enhance s ymmetrically. A 1.3 cm exophytic cyst arises from the interpolar left kidney. Additional subcentimete r cortical hypodensities also likely represent cysts but are too small for definitive characterizatio n. A 3 mm nonobstructing calculus is noted on the left. Abdominal vasculature: The abdominal aorta is normal in course and caliber noting moderate to advance d atherosclerotic calcification. Bowel: There is moderate sigmoid diverticulosis without CT evidence of acute diverticulitis. Colonic fecal retention is observed. No bowel obstruction is seen. The appendix is not identified. Peritoneum: There is no intraperitoneal free air or abdominal ascites. Lymphadenopathy: None. Pelvic viscera: Although decompressed, the bladder wall appears mildly thickened and there is pericys tic stranding. The endometrium appears thickened for age, measuring up to 8 mm. A fibroid in the fund al region measures up to 3.5 cm. No adnexal lesion is seen. Skeletal structures: The skeletal structures are osteopenic. Moderate to advanced lumbar sacral spond ylosis is observed. There are compression deformities of T11, T12, L2, L4, and L5 with evidence of pr evious vertebroplasty at L2 and L5. No lytic or blastic lesions are seen. IMPRESSION: 1. Cardiomegaly and cardiac pacemaker. Intralobular septal thickening at the lung bases suggests my estive failure. Clinical correlation will be required. 2. Small right and trace left pleural effusions. 3. Question cystitis. Correlation with clinical findings and urinalysis will be required. 4. Sigmoid diverticulosis without CT evidence of acute diverticulitis. 5. Left-sided nephrolithiasis. 6. Fibroid uterus. 7. The endometrium appears thickened for age measuring up to 8mm in thickness. Gynecology assessment and follow-up pelvic ultrasound are recommended. 8. Additional findings as above. Electronically signed by: Jordi Parrish M.D. 08/06/2018 9:51 AM
--- NOTE | 2018-08-06 10:15 | XRay Report ---
XR chest 1V portable CLINICAL HISTORY: hypoxia dyspnea COMPARISON STUDY: 04/02/2018 FINDINGS: Mild cardiomegaly. Permanent bipolar cardiac pacemaker. Small chronic left pleural effusion . Prominent pulmonary vasculature. IMPRESSION: Mild congestive failure superimposed upon chronic pleural and parenchymal change. The above report was generated using voice recognition software. It may contain grammatical, syntax or spelling errors. Electronically signed by: Duy León M.D. 08/06/2018 10:13 AM
[2018-08-06] MEDS ORDERED: fentaNYL citrate 100 MCG/2 ML VIAL IV PRN (10:34)
[2018-08-06] MEDS ORDERED: FUROSEMIDE 20 MG in SYRINGE 0 ML IV ONE (11:00)
[2018-08-06] MEDS: cloNIDine HCl 0.1 MG TAB PO SCH ×2 (11:03→21:04)
[2018-08-06] MEDS: MERCAPTOPURINE 50 MG TAB PO SCH (11:40)
[2018-08-06] MEDS: CLOPIDOGREL BISULFATE 75 MG TAB PO SCH (11:40)
[2018-08-06] MEDS: TAMOXIFEN CITRATE 10 MG TABLET PO SCH (11:41)
[2018-08-06] MEDS: METOPROLOL SUCC 50MG EXT REL TAB PO SCH (11:41)
[2018-08-06] MEDS: dilTIAZem HCL 240 MG CAPCR PO SCH (11:41)
[2018-08-06] MEDS ORDERED: KETOROLAC 30 MG/ML VIAL IV PRN (11:50)
[2018-08-06] MEDS: PANTOprazole 40 MG TAB PO SCH (13:00)
[2018-08-06] MEDS: FLINTSTONES COMPLETE CHEWABLE TAB PO SCH (13:00)
[2018-08-06] MEDS ORDERED: WARFARIN SOD 6 MG TAB PO SCH (16:00)
[2018-08-06] MEDS ORDERED: WARFARIN SOD 3 MG TAB PO STA (16:21)
--- NOTE | 2018-08-06 16:35 | OB/GYN Consultation ---
Date of Consultation August 06, 2018 Assessment & Plan (1) Abdominal pain: CT scan suggested possible fibroids and possible thickened endometrium. Ultrasound is superior for determining endometrial thickness so I have ordered this. If her lining is less than 4 mm do not think there is anything to worry about we will follow-up on this ultrasound on the gynecological service History of Present Illness Attending Physician: Darin Barboza MD, PhD, PENDING SALE TO [facility] 83-year-old woman with an abnormal CT scan possible fibroids Patient has not seen a veterinary parasitologist in many years she says she was having no problems no bleeding she was having some lower abdominal pain she does have a history of diverticulitis. No vaginal bleeding no history of abnormal BOARD WRITER problems although she does states she had a D&C many years ago for abnormal bleeding. Patient has had no BOARD WRITER procedures otherwise no children no history of pelvic infections. She describes some urinary frequency but no bleeding her pain is better it is left lower quadrant. Patient has no change in her stools at this time. Patient does not says she has any known history of fibroids Allergies Allergy/AdvReac Type Severity Reaction Status Date / Time Penicillins Allergy Severe THROAT Verified 08/06/18 04:26 SWELLS, PASSES OUT aspirin Allergy Intermediate WELTS Verified 08/06/18 04:26 AROUND EYES [place] And Derivatives Allergy Mild Runny/stuffy Verified 08/06/18 04:26 nose atorvastatin Allergy Unknown Unknown Verified 08/06/18 04:26 chicken derived AdvReac Intermediate DIARRHEA Verified 08/06/18 04:26 chocolate flavor AdvReac Intermediate DIARRHEA Verified 08/06/18 04:26 lactose AdvReac Intermediate GI upset Verified 08/06/18 04:26 grass pollen-perennial rye, AdvReac Mild RUNNY Verified 08/06/18 04:26 standar NOSE/SINUS ISSUES mushroom AdvReac Mild GI SYMPTOMS Verified 08/06/18 04:26 pollen extracts AdvReac Mild RUNNY Verified 08/06/18 04:26 NOSE/SINUS ISSUES soy AdvReac Mild GI SYMPTOMS Verified 08/06/18 04:26 simvastatin AdvReac Unknown Unknown Verified 08/06/18 04:26 Dust AdvReac Mild RUNNY Uncoded 08/06/18 04:26 NOSE/SINUS ISSUES Home Medications Home Medications Medication Instructions Recorded Confirmed Type cholecalciferol (vitamin D3) 2,000 unit PO DAILY 02/05/18 08/06/18 History [Vitamin D3] clonidine HCl 0.1 mg PO Q12 02/05/18 08/06/18 History clopidogrel [Plavix] 75 mg PO DAILY 02/05/18 08/06/18 History cyclosporine [Restasis] 1 drp OPB Q12H 02/05/18 08/06/18 History loratadine [Claritin] 10 mg PO DAILY PRN 02/05/18 08/06/18 History metoprolol succinate [Toprol XL] 100 mg PO DAILY 02/05/18 08/06/18 History pediatric multivitamin 2 tab PO DAILY 02/05/18 08/06/18 History pitavastatin calcium [Livalo] 4 mg PO HS 02/05/18 08/06/18 History polyethylene glycol 3350 [Miralax] 17 g PO DAILY PRN 02/05/18 08/06/18 History tamoxifen 20 mg PO DAILY 02/05/18 08/06/18 History loperamide 2 mg capsule 2 mg PO Q6H PRN 02/06/18 08/06/18 History mercaptopurine 50 mg tablet 75 mg PO DAILY 02/06/18 08/06/18 History diltiazem CD 240 mg 240 mg PO DAILY 03/22/18 08/06/18 History capsule,extended release 24 hr melatonin 3 mg tablet 3 mg PO HS PRN tab 04/26/18 08/06/18 History sulfasalazine 500 mg tablet 1 gm PO Q12 tab 05/16/18 08/06/18 History warfarin 3 mg tablet 3 mg PO 3XWK tab 06/19/18 08/06/18 History acetaminophen 500 mg tablet 1,000 mg PO BID tab 07/04/18 08/06/18 History calcium carbonate 600 mg calcium 600 mg PO DAILY tab 07/25/18 08/06/18 History (1,500 mg) tablet furosemide 20 mg tablet 10 mg PO 3XWK PRN 07/25/18 08/06/18 History omeprazole 20 mg delayed 20 mg PO DAILY tab 07/25/18 08/06/18 History release,disintegrating tablet potassium chloride ER 10 mEq 10 meq PO 3XWK PRN 07/25/18 08/06/18 History tablet,extended release(part/cryst) warfarin 3 mg PO 4XWK 08/06/18 08/06/18 History Patient History Medical History Sarcoidosis HLD (hyperlipidemia) GERD (gastroesophageal reflux disease) Aortic stenosis Abdominal pain (Acute) HTN (hypertension) (Chronic) Atrial fibrillation (Chronic) Breast cancer (Resolved 08/27/15) "Abnormal right breast mammogram 08/01/2015 Status post biopsy 08/27/2015 10:00 lesion invasive ductal carcinoma, grade 1 Estrogen receptor positive, progesterone receptor negative, HER-2/quique negative 11:00 lesion invasive lobular carcinoma, grade 1 Estrogen receptor positive, progesterone receptor positive, HER-2/quique negative Status post lumpectomy and sentinel lymph node biopsy 09/27/2015 Lobular and ductal carcinoma Stage pT1b pN1a M0 Radiation therapy stopped 01/26/2016 received 3780 cGy. Treatments stopped early due to admission for compression fracture and inability to tolerate being in the treatment position" On 02/21/16 15:06 Frances Hogan wrote "Abnormal right breast mammogram 08/01/2015 Status post biopsy 08/27/2015 10:00 lesion invasive ductal carcinoma, grade 1 Estrogen receptor positive, progesterone receptor negative, HER-2/quique negative 11:00 lesion invasive lobular carcinoma, grade 1 Estrogen receptor positive, progesterone receptor positive, HER-2/quique negative Status post lumpectomy and sentinel lymph node biopsy 09/27/2015 Lobular and ductal carcinoma Stage pT1b pN1a M0" On 02/21/16 15:06 Frances Hogan wrote "Abnormal right breast mammogram 08/01/2015 Status post biopsy 08/27/2015 10:00 lesion invasive ductal carcinoma, grade 1 Estrogen receptor positive, progesterone receptor negative, HER-2/quique negative 11:00 lesion invasive lobular carcinoma, grade 1 Estrogen receptor positive, progesterone receptor positive, HER-2/quique negative Status post lumpectomy and sentinel lymph node biopsy 09/27/2015 Lobular and ductal carcinoma Stage pT1b pN1a M0 Status post radiation therapy, treatment stopped 01/26/2016 received 3780 cGy " On 10/14/15 13:28 Frances Hogan wrote "Abnormal right breast mammogram 08/01/2015 Status post biopsy 08/27/2015 10:00 lesion invasive ductal carcinoma, grade 1 Estrogen receptor positive, progesterone receptor negative, HER-2/quique negative 11:00 lesion invasive lobular carcinoma, grade 1 Estrogen receptor positive, progesterone receptor positive, HER-2/quique negative Status post lumpectomy and sentinel lymph node biopsy 09/27/2015 Lobular and ductal carcinoma Stage pT1b pN1a M0 " CHF (congestive heart failure) Compression fracture of L5 lumbar vertebra (Acute) Compression fracture of lumbar spine, non-traumatic (Acute) Hypertensive urgency (Acute) Incarcerated paraesophageal hernia (Acute) SSS (sick sinus syndrome) (Acute 02/18/14) Surgical History Status cardiac pacemaker Hx of cholecystectomy (Resolved) Family History Other Benign essential HTN CAD (coronary artery disease) CVA (cerebral vascular accident) PVD (peripheral vascular disease) Social History Preferred Language: Swedish Communication Ability: Effective Structural Draftsman Required: No Beliefs That Will Affect Care: None Current Living Situation: Alone and Personal Care Facility Current Living Situation Comment: lives at the [facility] Other Information That Helps Us Care for You: No Feels Safe at Home: Yes Safety Concerns: Feels Safe At This Time Smoking Status: Never smoker Hx Alcohol Use: Yes Hx Substance Use: No Physical Exam Vital Signs (Past 24 Hours): Last Vital Signs Temp 36.7 C 08/06/18 15:39 Pulse 97 H 08/06/18 15:39 Resp 17 08/06/18 15:39 BP 150/99 H 08/06/18 15:39 Pulse Ox 97 08/06/18 16:00 Physical Exam: Abdomen is soft and nontender I feel no masses in the lower pelvis bowel sounds are positive there is no distention Pelvic exam is done with nursing present is a bimanual exam uterus feels retroverted cervix is somewhat irregular but within normal limits no lesions are palpated there is no obvious uterine enlargement on exam no pelvic masses palpated speculum exam is not performed at this time (1) Abdominal pain Abdominal location: left lower quadrant Qualified Code(s): R10.32 - Left lower quadrant pain
[2018-08-06] MEDS ORDERED: METOPROLOL TARTRATE 1 MG/ML VIAL IV PRN (17:33)
--- NOTE | 2018-08-06 19:21 | Ultrasound Report ---
PELVIC ULTRASOUND, TRANSABDOMINAL HISTORY: Abnormal endometrium. abnormal CT scan COMPARISON: Abdomen and pelvis CT 08/06/2018. Abdomen and pelvis CT 06/30/2015. FINDINGS: The patient deferred transvaginal scanning. Uterus: 2.8 x 2.4 x 3.8 cm. There is an exophytic solid and cystic lesion which appears to be within the left side of the uterine fundus. This measures approximate 6.3 x 7.3 x 5.5 cm. This was not pres ent on the [address] Endometrial stripe: 2 mm in thickness. Right ovary: There ovary was obscured by overlying bowel gas. Left ovary: The ovary was not identified. Miscellaneous:No pelvic free fluid. IMPRESSION: A 7.3 x 6.3 x 5.5 cm solid and cystic mass which appears to represent an exophytic uterine lesion. Th is was not present in 2016 and therefore raises the possibility of a leiomyosarcoma. Gynecologic cons ultation recommended for surgical evaluation/resection. Electronically signed by: Sedrick Rodriguez M.D. 08/06/2018 7:20 PM
[2018-08-06] MEDS: sulfaSALAzine 500 MG TABLET PO SCH (21:04)
[2018-08-06] MEDS: ACETAMINOPHEN 500 MG TAB PO SCH (21:05)
[2018-08-07 06:36] LABS: Basophils # (auto) 0.03 K/uL (0-0.2); Basophils % (auto) 0.7 %; Eosinophils % (auto) 2.4 %; Hematocrit (blood only) 36.7 % (37-47); Hemoglobin 11.9 g/dL (12.0-16.0); Immature Granulocytes # (auto) 0.01 K/uL (0.00-0.02); Immature Granulocytes % (auto) 0.2 %; Lymphocytes # (auto) 0.95 K/uL (1.2-3.4); Lymphocytes % (auto) 22.7 %; Mean Corpuscular Hgb Conc 32.4 g/dL (32-36); Mean Platelet Volume 10.6 fL (7.4-10.4); Monocytes # (auto) 0.91 K/uL (0.11-0.59); Monocytes % (auto) 21.8 %; Neutrophils # (auto) 2.18 K/uL (1.4-6.5); Neutrophils % (auto) 52.2 %; Platelet Count 240 K/uL (130-400); RDW Coefficient of Variation 15.2 % (11.5-14.5); RDW Standard Deviation 57.7 fL (36.4-46.3); Red Blood Count 3.53 M/uL (4.2-5.4); White Blood Count 4.18 K/uL (4.8-10.8)
[2018-08-07 06:48] LABS: INR 1.9 (0.9-1.1); Prothrombin Time 18.2 Seconds (9.0-12.0)
[2018-08-07 07:07] LABS: Albumin Level 2.8 gm/dl (3.4-5.0); BUN Creatinine Ratio 14.9 (10-20); Calcium 8.1 mg/dl (8.5-10.1); Creatinine Clr Calc Pharmacy 58.1 ml/min; Est GFR (African American) 92.2; Est GFR (Non-African American) 79.6; Magnesium 1.9 mg/dl (1.8-2.4); Potassium 3.9 mmol/L (3.5-5.1)
[2018-08-07 07:10] LABS: Albumin Globulin Ratio 0.9 (0.9-2); Bilirubin,Total 0.5 mg/dl (0.2-1); Globulin 3.1 gm/dl (2.5-4.0); Phosphorus 2.9 mg/dl (2.5-4.9); Total Protein 5.9 gm/dl (6.4-8.2)
--- NOTE | 2018-08-07 08:42 | Gynecologic Progress Note ---
Date of Service August 07, 2018 Update: New growth on U/S from last CT scan in 2016. This is potentially worrisome for Leiomyosarcoma. Would recommend outpatient referral to [facility] oncology at [facility] Disc with patient Physical Exam Vital Signs (Past 24 Hours): Last Vital Signs Temp 36.6 C 08/07/18 07:34 Pulse 101 H 08/07/18 07:34 Resp 16 08/07/18 07:34 BP 141/73 H 08/07/18 07:34 Pulse Ox 96 08/07/18 07:34
[2018-08-07] MEDS: sulfaSALAzine 500 MG TABLET PO SCH ×2 (08:57→20:24)
[2018-08-07] MEDS: dilTIAZem HCL 240 MG CAPCR PO SCH (08:58)
[2018-08-07] MEDS: cloNIDine HCl 0.1 MG TAB PO SCH ×2 (08:58→20:25)
[2018-08-07] MEDS: TAMOXIFEN CITRATE 10 MG TABLET PO SCH (08:59)
[2018-08-07] MEDS: FLINTSTONES COMPLETE CHEWABLE TAB PO SCH ×2 (08:59→09:07)
[2018-08-07] MEDS: CLOPIDOGREL BISULFATE 75 MG TAB PO SCH (09:00)
[2018-08-07] MEDS: PANTOprazole 40 MG TAB PO SCH (09:00)
[2018-08-07] MEDS: MERCAPTOPURINE 50 MG TAB PO SCH (09:01)
[2018-08-07] MEDS: METOPROLOL SUCC 50MG EXT REL TAB PO SCH (09:01)
[2018-08-07] MEDS: CHOLECALCIFEROL 1,000 UNITS TAB PO SCH (09:02)
[2018-08-07] MEDS: ACETAMINOPHEN 500 MG TAB PO SCH ×2 (09:03→20:25)
[2018-08-07] MEDS: SODIUM CHLORIDE 0.9% 500 ML IV SCH (09:22)
--- NOTE | 2018-08-07 15:27 | Hospitalist Progress Note ---
Date of Service August 07, 2018 Assessment & Plan (1) Abdominal pain: (2) CHF (congestive heart failure): (3) HTN (hypertension): (4) Atrial fibrillation: (5) SSS (sick sinus syndrome): (6) Status cardiac pacemaker: (7) Aortic stenosis: (8) GERD (gastroesophageal reflux disease): (9) HLD (hyperlipidemia): (10) Sarcoidosis: (11) Compression fracture of lumbar spine, non-traumatic: (12) Compression fracture of L5 lumbar vertebra: (13) CVA (cerebrovascular accident): (14) Ulcerative colitis: (15) DVT prophylaxis: 83-year-old white female admitted because of CHF exacerbation, and abdominal pain possible CHF which is acute on chronic Diastolic with LVEF of 55-60% in Dec 8. Has been on small dose of IV lasix , Strict I/Os, Follows with our cardiology team as outpatient. Electrolytes is normal Left lower Abdominal pain: Totally resolved , etiology unknown, could be related to constipation, muscle sprain, patient has no leukocytosis no fever and chills, no other GI symptom, has been tolerate diet, Accelerated hypertension, ordered lopressor every 4 hours as needed for accelerated hypertension Atrial fibrillation: INR 1.9, subtherapeutic, hx of 2 CVA, continue current dose of Coumadin hx of SSS, s/p cardiac pacemaker, Aortic stenosis: Stable GERD , dyslipidemia, Compression fracture of lumbar spine, non-traumatic: Compression fracture of L5 lumbar vertebra: hx of CVA The above condition stable continue current care New growth on U/S from last CT scan in 2016. This is potentially worrisome for Leiomyosarcoma. Gynecology saw patient, they will arrange for outpatient referral to [facility] oncology at [facility] Increase activity PTOT, follow-up PT OT recommendation, possible discharge tomorrow Subjective Sitting on chair, doing well, denies any pain in the left lower abdomen Denies fever and chills, occasional cough, no shortness of breath Denies nausea vomiting abdominal pain diarrhea constipation Denies dysuria urgency and frequency Denies facial droop or slurry speeches or local weakness No chest pain palpitation Physical Exam Vital Signs (Past 24 Hours): Last Vital Signs Temp 36.8 C 08/07/18 11:07 Pulse 87 08/07/18 11:07 Resp 16 08/07/18 11:07 BP 144/80 H 08/07/18 11:07 Pulse Ox 96 08/07/18 11:07 Physical Exam: General: awake, alert, no apparent distress, smiling and conversational, Head: Normocephalic, atraumatic ENT: PERRL, EOMI, no pharyngeal exudate, mucous membranes moist Chest: Clear to auscultation in upper degroot, diminished at bases bilaterally, Cardiac: irregularly irregular, + loud LIZETH with radiation to back and carotids, Abdominal: soft, nontender to palpation, no rebound, guarding or tenderness Extremities: Normal inspection, trace peripheral edema, no erythema, calfs nontender to palpation Psych: Normal mood and affect Neuro: AAO x 3, strength intact bilaterally and related 5/5, no motor deficits, speech is clear, no peripheral sensory deficits Results & Data Laboratory Results Laboratory Results - last 24 hr 08/07/18 08/07/18 08/07/18 06:02 06:02 06:02 WBC 4.18 L RBC 3.53 L Hgb 11.9 L Hct 36.7 L MCV 104.0 H MCH 33.7 MCHC 32.4 RDW Std Deviation 57.7 H RDW Coeff of Terrance 15.2 H Plt Count 240 MPV 10.6 H Immature Gran % (Auto) 0.2 Neut % (Auto) 52.2 Lymph % (Auto) 22.7 [place] % (Auto) 21.8 Eos % (Auto) 2.4 Baso % (Auto) 0.7 Immature Gran # (Auto) 0.01 Neut # (Auto) 2.18 Lymph # (Auto) 0.95 L [place] # (Auto) 0.91 H Eos # (Auto) 0.10 Baso # (Auto) 0.03 PT 18.2 H INR 1.9 H Sodium 141 Potassium 3.9 Chloride 110 H Carbon Dioxide 27 Anion Gap 4.0 BUN 10 Creatinine 0.70 Est Cr Clr Drug Dosing 58.1 Est GFR ( Amer) 92.2 Est GFR (Non-Af Amer) 79.6 BUN/Creatinine Ratio 14.9 Glucose 83 Calcium 8.1 L Phosphorus 2.9 Magnesium 1.9 Total Bilirubin 0.5 AST 23 ALT 24 Alkaline Phosphatase 38 L Total Protein 5.9 L Albumin 2.8 L Globulin 3.1 Albumin/Globulin Ratio 0.9 (1) Abdominal pain Abdominal location: left lower quadrant Qualified Code(s): R10.32 - Left lower quadrant pain
[2018-08-07] MEDS ORDERED: WARFARIN SOD 3 MG TAB PO SCH (16:00)
[2018-08-08 05:42] LABS: Hematocrit (blood only) 37.1 % (37-47); Mean Corpuscular Hgb Conc 32.3 g/dL (32-36); Mean Corpuscular Volume 104.8 fL (80-100); Mean Platelet Volume 10.4 fL (7.4-10.4); Platelet Count 245 K/uL (130-400); RDW Coefficient of Variation 15.1 % (11.5-14.5); RDW Standard Deviation 58.3 fL (36.4-46.3); Red Blood Count 3.54 M/uL (4.2-5.4); White Blood Count 5.23 K/uL (4.8-10.8)
[2018-08-08 06:01] LABS: Albumin Level 2.9 gm/dl (3.4-5.0); BUN Creatinine Ratio 16.9 (10-20); Calcium 8.3 mg/dl (8.5-10.1); Creatinine Clr Calc Pharmacy 50.8 ml/min; Est GFR (African American) 78.5; Est GFR (Non-African American) 67.7; Potassium 4.1 mmol/L (3.5-5.1)
[2018-08-08 06:04] LABS: Albumin Globulin Ratio 0.9 (0.9-2); Bilirubin,Total 0.3 mg/dl (0.2-1); Globulin 3.1 gm/dl (2.5-4.0)
[2018-08-08 08:04] VITALS: BP 119/91; TEMP 98.1; O2SAT 95
[2018-08-08] MEDS: dilTIAZem HCL 240 MG CAPCR PO SCH (08:05)
[2018-08-08] MEDS: TAMOXIFEN CITRATE 10 MG TABLET PO SCH (08:05)
[2018-08-08] MEDS: sulfaSALAzine 500 MG TABLET PO SCH (08:05)
[2018-08-08] MEDS: MERCAPTOPURINE 50 MG TAB PO SCH (08:06)
[2018-08-08] MEDS: PANTOprazole 40 MG TAB PO SCH (08:07)
[2018-08-08] MEDS: METOPROLOL SUCC 50MG EXT REL TAB PO SCH (08:07)
[2018-08-08] MEDS: CHOLECALCIFEROL 1,000 UNITS TAB PO SCH (08:07)
[2018-08-08] MEDS: CLOPIDOGREL BISULFATE 75 MG TAB PO SCH (08:07)
[2018-08-08] MEDS: cloNIDine HCl 0.1 MG TAB PO SCH (08:07)
[2018-08-08] MEDS: FLINTSTONES COMPLETE CHEWABLE TAB PO SCH (08:08)
[2018-08-08] MEDS: ACETAMINOPHEN 500 MG TAB PO SCH (08:08)
--- NOTE | 2018-08-08 12:33 | Discharge Summary ---
Date of Service August 08, 2018 Admission HPI Per Admitting Provider This is an 83 yo F with PMHx of CHF, HTN, HLD, paroxysmal afib on coumadin, hx of CVA on plavix, SSS s/p pacemaker, breast cancer, GERD, aortic stenosis, compression fracture of the lumbar spine, ulcerative colitis, who presents with acute onset of abdominal pain last night. She reports the pain is in the LLQ, rates it as a 8/10, and "feels like it could explode". Deep breaths aggravate pain, no other alleviating factors. The patient denies nausea/vomiting, diarrhea or constipation. She had a UC flare about 3 months ago however this pain is different than sx such as diarrhea which she experiences during a UC flare. She denies fever, chills or sweats. Pt denies any acute trauma or injury. After two doses of IV fentanyl her pain was much better. While the patient was in the ER overnight, it was noted that during ambulation to bathroom her O2 sats were dropping down to 90%, she typically does not need O2, and feels well with ambulation. She admits to increased fatigue with minimal activities today. Braden es recent URI, sick contacts, SOB and cough. CT of the abd is in process, but due to a system downtime/upgrade, the read of this image had not been available for viewing overnight. Principal Diagnosis no Discharge Data Allergies Allergy/AdvReac Type Severity Reaction Status Date / Time Penicillins Allergy Severe THROAT Verified 08/06/18 04:26 SWELLS, PASSES OUT aspirin Allergy Intermediate WELTS Verified 08/06/18 04:26 AROUND EYES [place] And Derivatives Allergy Mild Runny/stuffy Verified 08/06/18 04:26 nose atorvastatin Allergy Unknown Unknown Verified 08/06/18 04:26 chicken derived AdvReac Intermediate DIARRHEA Verified 08/06/18 04:26 chocolate flavor AdvReac Intermediate DIARRHEA Verified 08/06/18 04:26 lactose AdvReac Intermediate GI upset Verified 08/06/18 04:26 grass pollen-perennial rye, AdvReac Mild RUNNY Verified 08/06/18 04:26 standar NOSE/SINUS ISSUES mushroom AdvReac Mild GI SYMPTOMS Verified 08/06/18 04:26 pollen extracts AdvReac Mild RUNNY Verified 08/06/18 04:26 NOSE/SINUS ISSUES soy AdvReac Mild GI SYMPTOMS Verified 08/06/18 04:26 simvastatin AdvReac Unknown Unknown Verified 08/06/18 04:26 Dust AdvReac Mild RUNNY Uncoded 08/06/18 04:26 NOSE/SINUS ISSUES Consultations 08/06/18 09:06 ED Decision to Admit Stat 08/06/18 09:13 Consult Case Management - Discharge Planning Routine 08/06/18 10:34 Consult Gynecology Routine Ordered Studies 08/06/18 05:14 CT abd pelvis IV con only Stat 08/06/18 16:31 US pelvic complete Routine Hospital Course (1) Abdominal pain: (2) CHF (congestive heart failure): (3) HTN (hypertension): (4) Atrial fibrillation: (5) SSS (sick sinus syndrome): (6) Status cardiac pacemaker: (7) Aortic stenosis: (8) GERD (gastroesophageal reflux disease): (9) HLD (hyperlipidemia): (10) Sarcoidosis: (11) Compression fracture of lumbar spine, non-traumatic: (12) Compression fracture of L5 lumbar vertebra: (13) CVA (cerebrovascular accident): (14) Ulcerative colitis: (15) DVT prophylaxis: 83-year-old white female admitted because of CHF exacerbation, and abdominal pain possible 1 episode of CHF which is acute on chronic Diastolic with LVEF of 55- 60% in Dec 2017 Has been on small dose of IV lasix , Strict I/Os, will continue, follows with cardiology team as outpatient. Heart rate still mild elevation when you up and walk, cautious when walking, avoid fall Electrolytes is normal Left lower Abdominal pain upon admission: Totally resolved , etiology unknown, could be related to constipation, muscle sprain, patient has no leukocytosis no fever and chills, no other GI symptom, has been tolerate diet, Accelerated hypertension, ordered lopressor every 4 hours as needed for accelerated hypertension Atrial fibrillation: INR 1.9 yesterday, subtherapeutic, hx of 2 CVA, continue current dose of Coumadin, has advised her to follow-up lab with PCP as she was doing before the admission hx of SSS, s/p cardiac pacemaker, Aortic stenosis: Stable GERD , dyslipidemia, Compression fracture of lumbar spine, non-traumatic: Compression fracture of L5 lumbar vertebra: hx of CVA The above condition stable continue current care New growth on U/S from last CT scan in 2015. This is potentially worrisome for Leiomyosarcoma. Gynecology saw patient, outpatient referral to NEUROBIOLOGIST oncology at [facility] has been scheduled Increase activity PTOT, follow-up PT OT recommendation, possible discharge Subjective at discharge Sitting on chair, doing well, denies any pain in the left lower abdomen, denied dizziness or chest pain Denies fever and chills, occasional cough, no shortness of breath Denies nausea vomiting abdominal pain diarrhea constipation Denies dysuria urgency and frequency Denies facial droop or slurry speeches or local weakness No chest pain palpitation Physical Exam at discharge General: awake, alert, no apparent distress, smiling and conversational, Head: Normocephalic, atraumatic ENT: PERRL, EOMI, no pharyngeal exudate, mucous membranes moist Chest: Clear to auscultation in upper degroot, diminished at bases bilaterally, Cardiac: irregularly irregular, + loud LIZETH with radiation to back and carotids, Abdominal: soft, nontender to palpation, no rebound, no guarding or tenderness Extremities: Normal inspection, trace peripheral edema, no erythema, calfs nontender to palpation Psych: Normal mood and affect Neuro: AAO x 3, strength intact bilaterally and related 5/5, no motor deficits, speech is clear, no peripheral sensory deficits Lab data at discharge: Laboratory Results - last 24 hr 08/08/18 08/08/18 05:16 05:16 WBC 5.23 RBC 3.54 L Hgb 12.0 Hct 37.1 MCV 104.8 H MCH 33.9 MCHC 32.3 RDW Std Deviation 58.3 H RDW Coeff of Terrance 15.1 H Plt Count 245 MPV 10.4 Sodium 143 Potassium 4.1 Chloride 110 H Carbon Dioxide 28 Anion Gap 5.0 BUN 14 Creatinine 0.80 Est Cr Clr Drug Dosing 50.8 Est GFR ( Amer) 78.5 Est GFR (Non-Af Amer) 67.7 BUN/Creatinine Ratio 16.9 Glucose 96 Calcium 8.3 L Total Bilirubin 0.3 AST 23 ALT 23 Alkaline Phosphatase 39 L Total Protein 6.0 L Albumin 2.9 L Globulin 3.1 Albumin/Globulin Ratio 0.9 Total Time Total Time Spent Total Time Spent (In Minutes): 35 Total Time Includes: Examination of the Patient, Discharge Planning, Medication Reconciliation and Communication With Other Providers Discharge Plan Discharge Items Patient Disposition: Home - Self-Care Reason For Visit: ABDOMINAL PAIN, HYPOXIA Discharge Diagnosis: acute heart failure episode abdominal pain uterine mass Condition: Good Discharge Goals: Decrease discomfort and Diagnostic testing Activity: Resume your previous activity Non-emergency contact: Primary Care Provider and Specialist Call non-emergency contact if: you have any medication questions Follow-up/Referrals: Ole Spangler MD [Primary Care Provider] - 08/15/18 4:15 pm (Please, follow up with Dr. Ole Spangler on August 15 at 4:15 pm. *If you need to change this appointment, call the office at [phone].) Pedro Tom [Outside Practitioners] - 08/21/18 9:45 am (Please, follow up with Dr. Pedro Tom at [facility] on SundayAugust 21 at 9:45 am. *This office is located just inside the main entrance of the [facility]. The address is [address] [place] [address]. If you have any questions or need to change this appointment, call the office at [phone] option 4.) Diet: Heart Healthy Addtl Provider Instructions: you have brief episode of acute on chronic Diastolic heart failure you have Accelerated hypertension you have Atrial fibrillation you have Compression fracture of lumbar spine you have New growth uterine, Gynecology will arrange for outpatient referral to NEUROBIOLOGIST oncology at [facility], please keep the appointment you need to follow up with your primary care physician in 1 week, - take medication as instructed, never overdose or any misuse, or take with alcohol, because misuse of medicine may cause organ damage or , call me, or your primary care physician if have questions of discharge medicaitons. - call your primary care physician, or go to local emergency room if has any fever/chill, chest pain, shortness of breathing, nausea/vomiting/abdominal pain, facial droop/slurry speech/local weakness, or if has any questions. - fall precaution - diet as instructed - you need to follow up with your subspecialist, such as NEUROBIOLOGIST oncologist at [facility], Prescriptions: Continued clonidine HCl 0.1 mg Tablet 0.1 mg PO Q12 RF: 0 polyethylene glycol 3350 [Miralax] 17 gram Powder In Packet 17 g PO DAILY PRN (Reason: Constipation) RF: 0 metoprolol succinate [Toprol XL] 100 mg Tablet Extended Release 24 Hr 100 mg PO DAILY RF: 0 pediatric multivitamin Tablet,Chewable 2 tab PO DAILY RF: 0 clopidogrel [Plavix] 75 mg Tablet 75 mg PO DAILY RF: 0 tamoxifen 20 mg Tablet 20 mg PO DAILY RF: 0 loratadine [Claritin] 10 mg Tablet 10 mg PO DAILY PRN (Reason: ALLERGIES) RF: 0 Restasis 0.05 % [place] 1 drp OPB Q12H RF: 0 cholecalciferol (vitamin D3) [Vitamin D3] 2,000 unit Capsule 2,000 unit PO DAILY RF: 0 Livalo 4 mg Tablet 4 mg PO HS RF: 0 loperamide 2 mg capsule 2 mg PO Q6H PRN (Reason: loose stool) RF: 0 mercaptopurine 50 mg tablet 75 mg PO DAILY RF: 0 sulfasalazine 500 mg tablet 1 gm PO Q12 RF: 0 warfarin 3 mg tablet 3 mg PO 3XWK RF: 0 furosemide [Lasix] 20 mg tablet 10 mg PO 3XWK PRN (Reason: Fluid Retention) RF: 0 omeprazole 20 mg tablet,disintegrat, delay rel 20 mg PO DAILY RF: 0 potassium chloride [Klor-Con M10] 10 mEq tablet,ER particles/crystals 10 meq PO 3XWK PRN (Reason: TAKES WHEN LASIX TAKEN) RF: 0 diltiazem HCl [Cardizem CD] 240 mg capsule,extended release 24hr 240 mg PO DAILY RF: 0 melatonin 3 mg tablet 3 mg PO HS PRN (Reason: Sleep) RF: 0 calcium carbonate 600 mg calcium (1,500 mg) tablet 600 mg PO DAILY RF: 0 acetaminophen 500 mg tablet 1,000 mg PO BID RF: 0 warfarin 3 mg Tablet 3 mg PO 4XWK RF: 0 Stand-Alone Forms: [facility] Discharge Orders: Discharge Order (Routine); Ordered 08/08/18 Ordered By: Darin Barboza Admission Data Admit Date/Time: 08/06/18 09:12 Attending Provider: Darin Barboza Admit Provider: Darin Barboza Primary Care Provider: Ole Spangler Other Providers: Sandi Love ; Darin Barboza Service: Telemetry
[2018-08-08 13:01] LABS: INR 2.3 (0.9-1.1)
[2018-08-08 13:09] VITALS: PULSE 121
== END 2018-08-08 15:25 | disposition home or self-care (01) | DRG 542 ==
LOC: ED 04:05 → 2E 09:12

== ENCOUNTER 2020-06-14 21:53 | Inpatient (IN) ==
[2020-06-14] MEDS ORDERED: SODIUM CHLORIDE 0.9% 1000ML 1,000 ML IV STA (22:20)
[2020-06-14 23:14] LABS: Basophils # (auto) 0.04 K/uL (0-0.2); Basophils % (auto) 0.5 %; Eosinophils # (auto) 0.07 K/uL (0-0.5); Eosinophils % (auto) 0.9 %; Hemoglobin 10.5 g/dL (12.0-16.0); Immature Granulocytes # (auto) 0.02 K/uL (0.00-0.02); Immature Granulocytes % (auto) 0.3 %; Lymphocytes # (auto) 1.31 K/uL (1.2-3.4); Lymphocytes % (auto) 17.2 %; Mean Corpuscular Hemoglobin 33.4 pg (25-34); Mean Corpuscular Hgb Conc 32.8 g/dL (32-36); Mean Corpuscular Volume 101.9 fL (80-100); Mean Platelet Volume 10.7 fL (7.4-10.4); Monocytes # (auto) 0.85 K/uL (0.11-0.59); Monocytes % (auto) 11.2 %; Neutrophils # (auto) 5.32 K/uL (1.4-6.5); Neutrophils % (auto) 69.9 %; Platelet Count 341 K/uL (130-400); RDW Coefficient of Variation 16.3 % (11.5-14.5); RDW Standard Deviation 61.2 fL (36.4-46.3); Red Blood Count 3.14 M/uL (4.2-5.4); White Blood Count 7.61 K/uL (4.8-10.8)
[2020-06-14 23:16] LABS: iSTAT Creatinine 0.8 mg/dl (0.6-1.3); iSTAT Hemoglobin 11.9 g/dl (12.0-16.0); iSTAT Ionized Calcium 1.12 mmol/l (1.12-1.32); iSTAT Potassium 4.1 mmol/L (3.3-5.0)
[2020-06-14 23:30] LABS: Albumin Level 2.7 gm/dl (3.4-5.0); BUN Creatinine Ratio 22.5 (10-20); Calcium 8.7 mg/dl (8.5-10.1); Creatinine Clr Calc Pharmacy 41.3 ml/min; Est GFR (African American) 75.1; Est GFR (Non-African American) 64.8; Potassium 3.8 mmol/L (3.5-5.1)
[2020-06-14 23:33] LABS: Albumin Globulin Ratio 0.9 (0.9-2); Bilirubin,Total 0.3 mg/dl (0.2-1); Globulin 2.9 gm/dl (2.5-4.0); Total Protein 5.6 gm/dl (6.4-8.2)
[2020-06-14 23:34] LABS: Partial Thromboplastin Ratio 1.4; Partial Thromboplastin Time 39.9 Seconds (21.0-31.0); Prothrombin Time 67.7 Seconds (9.0-12.0)
[2020-06-14] MEDS ORDERED: HYDROmorphone INJ 0.5 MG/0.5 ML SYR IV STA (23:48)
[2020-06-14 23:50] LABS: INR 7.1 (0.9-1.1)
[2020-06-15] MEDS ORDERED: OPTIRAY 320 125ml IV ONE (00:41)
--- NOTE | 2020-06-15 00:58 | Emergency Department Note ---
Impression & Plan Lower extremity pain, left ED Provider Note INFORMANT: Patient ED PROVIDER(S): Honorio Mart MD CHIEF COMPLAINT: Left leg pain PLAN: Disposition: Admitted Condition: Good MEDICAL DECISION MAKING: Patient presented with acute pain in the left leg that has been present most of the day. Her left leg was cool to the touch and cap refill was significantly diminished on the left compared to the right. Pulses were unable to be felt by palpation and unable to be detected by Doppler bedside. An IV was ordered. I- STAT performed. Creatinine was in the acceptable range. CBC showed a mild anemia. Her INR is supratherapeutic. The patient was prepped for imaging however her IV was inadequate. IV team did have to make multiple attempts to obtain a better IV however they were unsuccessful and the patient refused add itional attempts. She was sent for imaging to better evaluate the leg. CT imaging was concerning for multifocal atheromatous disease within the vessels of the left lower extremity. There is a short segment occlusion within the left popliteal that was 2 cm in length. Anterior tibial artery is patent to the level of the ankle. Dorsalis pedis appears to be occluded. Posterior tibial artery is patent to the level of the medial malleolus but appears to be occluded within the foot. All I did consult with Dr. Restrepo but he does not directly treat these from interventional cardiology standpoint. I was able to get in touch with Dr. Duncan even though he was not vendor relationship manager. He noted this needed i ntervention and would see the patient for operative management. I did also consult with Dr. Armaan Marroquin of the hospitalist service. The patient will be admitted for further treatment. Triage Nursing notes reviewed and agree them. Prior medical records reviewed regarding recent hospitalization and treatment. Vital Signs: reviewed and remarkable for no significant abnormalities Differential diagnosis: Vascular compromise, arterial embolism, musculoskeletal, disc herniation, fracture, metastatic disease, cord compression, infection, aortic disease, as well as other pathologies. Diagnostics interpreted by me: ECG: Twelve-lead ECG reveals atrial fibrillation at 67 bpm. Frequent paced beats noted. ST and T wave changes noted laterally. No ST segment elevation. Normal QRS and axis venetie beats. Imaging studies: CT angiography of the left lower extremity as noted above. Consultation(s): Interventional cardiology Vascular surgery Hospitalist service HPI: The patient is a 85 year old female who presents to the Emergency Room with complaints of left leg pain. This started today around 10:00 and is getting worse. The patient also notes the following associated symptoms, cool sensation to the left foot. The patient has been given no medication for relieving factors. Current pain is rated as 6/10. 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 She notes recovering from that. Pt denies LOC, headache, fevers, chills, diaphoresis, visual changes, neck pain, chest pain, breathing difficulties, nausea, vomiting, abdominal pain, back pain, melena, hematochezia, urinary symptoms, numbness, weakness, lymphadenopathy, rash, or other complaints. ROS: See above HPI for pertinent positives & negatives. A total of 10 systems reviewed and were otherwise negative. PAST MEDICAL HISTORY:See Below , A. fib, hypertension, CHF PAST SURGICAL HISTORY:See Belowpacemaker FAMILY HISTORY:See Below SOCIAL HISTORY:See Below, non-smoker HOME MEDICATIONS:See Below ALLERGIES:See Below VITALS:See Below PHYSICAL EXAMINATION: GENERAL: Awake, alert, well-appearing, in no distress HENT: Normocephalic, atraumatic. Oropharynx unremarkable. EYES: Normal conjunctiva. Sclera non-icteric. NECK: Inspection normal. Non-tender. Supple. No nuchal rigidity. FROM. No masses. RESPIRATORY: Clear to auscultation. No wheezes. No rales. Normal respiratory effort. CARDIAC: Normal rate. Normal rhythm. No murmurs. No rubs. Extremities warm and well perfused. Pulses equal. No JVD. GI: Soft, non-distended. No tenderness to palpation. No rebound or guarding. No masses. RECTAL: Deferred. MUSCULOSKELETAL: Atraumatic. Chest examination reveals no tenderness. The back is symmetrical on inspection without obvious abnormality. There is no CVA tenderness to palpation. No joint edema. LOWER EXTREMITIES: Calves are equal size bilaterally and non-tender. No edema. Left lower extremity from the mid green distally is cooler to the touch than the right. The left lower extremity is pale compared to the right. Significantly diminished cap refill on the left side. Unable to palpate dorsalis pedis or posterior tibial pulses on the left side. NEURO: Normal sensorium. Decreased sensation in the left foot. No other sensory or motor deficits noted. SKIN: No rash or jaundice noted. ED COURSE: Critical Care: I have personally spent greater than 35 minutes of critical care time in the direct management of this patient. This includes bedside care, interpretation of diagnostic studies, and testing, discussion with consultants, patient, and family members, and other required patient management activities. These minutes are in excess of all separately billable procedures. Honorio Mart MD Past Med/Surg History Medical History Aortic stenosis Breast cancer (08/27/15) "Abnormal right breast mammogram 08/01/2015 Status post biopsy 08/27/2015 10:00 lesion invasive ductal carcinoma, grade 1 Estrogen receptor positive, progesterone receptor negative, HER-2/quique negat jaguar 11:00 lesion invasive lobular carcinoma, grade 1 Estrogen receptor positive, progesterone receptor positive, HER-2/quique negative Status post lumpectomy and sentinel lymph node biopsy 09/27/2015 Lobular and ductal carcinoma Stage pT1b pN1a M0 Radiation therapy stopped 01/26/2016 received 3780 cGy. Treatments stopped early due to admission for compression fracture and inability to tolerate being in the treatment position" On 02/21/16 15:06 Frances Hogan wrote "Abnormal right breast mammogram 08/01/2015 Status post biopsy 08/27/2015 10:00 lesion invasive ductal carcinoma, grade 1 Estrogen receptor positive, progesterone receptor negative, HER-2/quique negative 11:00 lesion invasive lobular carcinoma, grade 1 Estrogen receptor positive, progesterone receptor positive, HER-2/quique negative Status post lumpectomy and sentinel lymph node biopsy 09/27/2015 Lobular and ductal carcinoma Stage pT1b pN1a M0" On 02/21/16 15:06 Frances Hogan wrote "Abnormal right breast mammogram 08/01/2015 Status post biopsy 08/27/2015 10:00 lesion invasive ductal carcinoma, grade 1 Estrogen receptor positive, progesterone receptor negative, HER-2/quique negative 11:00 lesion invasive lobular carcinoma, grade 1 Estrogen receptor positive, progesterone receptor positive, HER-2/quique negative Status post lumpectomy and sentinel lymph node biopsy 09/27/2015 Lobular and ductal carcinoma Stage pT1b pN1a M0 Status post radiation therapy, treatment stopped 01/26/2016 received 3780 cGy " On 10/14/15 13:28 Frances Hogan wrote "Abnormal right breast mammogram 08/01/2015 Status post biopsy 08/27/2015 10:00 lesion invasive ductal carcinoma, grade 1 Estrogen receptor positive, progesterone receptor negative, HER-2/quique negative 11:00 lesion invasive lobular carcinoma, grade 1 Estrogen receptor positive, progesterone receptor positive, HER-2/quique negative Status post lumpectomy and sentinel lymph node biopsy 09/27/2015 Lobular and ductal carcinoma Stage pT1b pN1a M0 " Breast cancer RT BREAST (SX AND RADIATION) CHF (congestive heart failure) Compression fracture of lumbar vertebra Facial basal cell cancer NOSE GERD (gastroesophageal reflux disease) HLD (hyperlipidemia) HTN (hypertension) Hypertensive urgency Incarcerated paraesophageal hernia On anticoagulant therapy warfarin/plavix daily Osteoarthritis 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" (FOLLOWED BY [facility]) Paraesophageal hiatal hernia SSS (sick sinus syndrome) (02/18/14) Stroke OVER 20 YEARS AGO (NO CURRENT PROBLEMS) Ulcerative colitis Ulcerative colitis "REMISSION" Unintentional weight loss per pt reason for colonoscopy Surgical History H/O total hysterectomy UTERINE MASS REMOVED (BENIGN) History of appendectomy History of cataract surgery History of colonoscopy History of esophagogastroduodenoscopy (EGD) recently had 03/2019 @ [facility] per pt they found 2 ulcers-1 in esophagus and 1 in stomach History of herniorrhaphy History of kyphoplasty History of tonsillectomy and adenoidectomy History of tooth extraction Hx of lumpectomy RT Family History Other Benign essential HTN Coronary heart disease PVD (peripheral vascular disease) Stroke Denies family history of Ovarian cancer Prostate cancer Breast cancer Lung cancer Colorectal cancer Social History Smoking Status: Unknown if ever smoked Second Hand Exposure: Yes (older brothers all smoked); Hx Alcohol Use: Yes Alcohol type: wine Hx Substance Use: No Preferred Language: Kazakh Communication Ability: Effective Visual Impairment: Limited Hearing Ability: Normal 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 Wheel 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 Required: No Beliefs That Will Affect Care: None marital status: Single Current Living Situation: Personal Care Facility Current Living Situation Comment: L[facility] current occupational status: retired Feels Safe at Home: Yes Childhood Exposure to Second-Hand Smoke: No caffeine: Yes Dental Care, Regularly: Yes Physical Activity Frequency: 1-2 Times per Week Seatbelt Use: always Sunscreen Use: Yes Assistive Devices: Denture - Upper, Denture - Lower and Walker Allergies Allergies Allergy/AdvReac Type Severity Reaction Status Date / Time Penicillins Allergy Severe THROAT Verified 06/14/20 23:45 SWELLS, PASSES OUT aspirin Allergy Intermediate WELTS Verified 06/14/20 23:45 AROUND EYES Kermit And Derivatives Allergy Mild Runny/stuffy Verified 06/14/20 23:45 nose chicken derived AdvReac Intermediate DIARRHEA Verified 06/14/20 23:45 chocolate flavor AdvReac Intermediate DIARRHEA Verified 06/14/20 23:45 lactose AdvReac Intermediate GI upset Verified 06/14/20 23:45 grass pollen-perennial rye, AdvReac Mild RUNNY Verified 06/14/20 23:45 standar NOSE/SINUS ISSUES mushroom AdvReac Mild GI SYMPTOMS Verified 06/14/20 23:45 pollen extracts AdvReac Mild RUNNY Verified 06/14/20 23:45 NOSE/SINUS ISSUES soy AdvReac Mild GI SYMPTOMS Verified 06/14/20 23:45 [id number] Reductase AdvReac Mild DID NOT Verified 06/14/20 23:45 Inhibitor WORK lorazepam AdvReac Hallucinati Verified 06/14/20 23:45 ng Home Meds Home Medications Medication Instructions Recorded Confirmed Restasis 1 drp OPB AMHS 02/05/18 06/14/20 cholecalciferol (vitamin D3) 2,000 unit PO QDL 02/05/18 06/14/20 [Vitamin D3] Adult One Daily Gummies 400 mcg PO QDL 04/12/19 06/14/20 tamoxifen 20 mg PO DAILYBB 06/12/19 06/14/20 vitamins A,C,[id number] 14,320 1 cap PO BIDM 08/11/19 06/14/20 unit-226 mg-200 unit capsule acetaminophen 325 mg tablet 650 mg PO Q4 PRN tab MDD 3g 10/08/19 06/14/20 mercaptopurine 50 mg tablet 75 mg PO QDD tablet 01/15/20 06/14/20 clopidogrel [Plavix] 75 mg PO QDL 05/08/20 06/14/20 diltiazem HCl [Cardizem CD] 360 mg PO QDL 05/08/20 06/14/20 rosuvastatin 5 mg PO QDD 05/08/20 06/14/20 sulfasalazine 1,000 mg PO BIDM 05/08/20 06/14/20 trazodone 25 mg PO HS 05/08/20 06/14/20 calcium carb and citrate-vitD3 1 tab PO BIDM 06/03/20 06/14/20 [Citracal-D3 Slow Release] clonidine HCl 0.1 mg PO BIDM 06/03/20 06/14/20 pantoprazole [Protonix] 40 mg PO BIDM 06/03/20 06/14/20 famotidine [Pepcid] 20 mg PO HS 06/14/20 06/14/20 Previous Rx's Medication Instructions Recorded walker #1 ea 03/11/19 metoprolol succinate 100 mg PO DAILY #30 ea 06/11/20 warfarin 5 mg PO DAILY #30 tab 06/11/20 Results & Data (ED) Vital Signs Vital Signs - 24 hr 06/14/20 22:02 06/14/20 22:11 06/14/20 22:30 Temperature 36.7 C Temperature Source Oral Pulse Rate 64 82 64 Pulse Rate from SpO2 Sensor 63 65 Respiratory Rate 18 13 17 Respiratory Effort / Characteristics Non-Labored Spontaneous Respiratory Depth Normal Blood Pressure 114/61 Blood Pressure Mean 78 Pulse Oximetry 97 97 97 Oxygen Delivery Method Room Air Room Air Room Air Sepsis New/Unexplained Change in Mental Status N/A Sepsis Action Taken by Nursing No Action Required 06/14/20 23:00 06/14/20 23:30 06/15/20 00:11 Temperature Temperature Source Pulse Rate 63 69 67 Pulse Rate from SpO2 Sensor 66 66 Respiratory Rate 24 15 17 Respiratory Effort / Characteristics Respiratory Depth Blood Pressure 124/60 Blood Pressure Mean 79 Pulse Oximetry 97 97 96 Oxygen Delivery Method Room Air Room Air Room Air Sepsis New/Unexplained Change in Mental Status Sepsis Action Taken by Nursing 06/15/20 00:39 06/15/20 00:40 06/15/20 01:00 Temperature Temperature Source Pulse Rate 67 69 75 Pulse Rate from SpO2 Sensor 64 78 76 Respiratory Rate 14 17 18 Respiratory Effort / Characteristics Respiratory Depth Blood Pressure 138/49 L 130/54 L Blood Pressure Mean 95 76 Pulse Oximetry 95 95 97 Oxygen Delivery Method Room Air Room Air Room Air Sepsis New/Unexplained Change in Mental Status Sepsis Action Taken by Nursing 06/15/20 01:01 06/15/20 01:31 06/15/20 02:00 Temperature Temperature Source Pulse Rate 73 73 79 Pulse Rate from SpO2 Sensor 74 Respiratory Rate 20 19 17 Respiratory Effort / Characteristics Respiratory Depth Blood Pressure 137/67 142/75 H Blood Pressure Mean 72 107 Pulse Oximetry 95 Oxygen Delivery Method Room Air Sepsis New/Unexplained Change in Mental Status Sepsis Action Taken by Nursing Laboratory Data Result diagrams: 06/14/20 23:00 06/14/20 23:00 Lab Results 06/14/20 06/14/20 06/14/20 Range/Units 23:00 23:00 23:00 WBC 7.61 (4.8-10.8) K/uL RBC 3.14 L (4.2-5.4) M/uL Hgb 10.5 L (12.0-16.0) g/dL POC Hgb (12.0-16.0) g/dl Hct 32.0 L (37-47) % POC Hct (37-47) % MCV 101.9 H (80-100) fL MCH 33.4 (25-34) pg MCHC 32.8 (32-36) g/dL RDW Std Deviation 61.2 H (36.4-46.3) fL RDW Coeff of Terrance 16.3 H (11.5-14.5) % Plt Count 341 (130-400) K/uL MPV 10.7 H (7.4-10.4) fL Immature Gran % (Auto) 0.3 % Neut % (Auto) 69.9 % Lymph % (Auto) 17.2 % [place] % (Auto) 11.2 % Eos % (Auto) 0.9 % Baso % (Auto) 0.5 % Neut # (Auto) 5.32 (1.4-6.5) K/uL Lymph # (Auto) 1.31 (1.2-3.4) K/uL [place] # (Auto) 0.85 H (0.11-0.59) K/uL Eos # (Auto) 0.07 (0-0.5) K/uL Baso # (Auto) 0.04 (0-0.2) K/uL Immature Gran # (Auto) 0.02 (0.00-0.02) K/uL PT 67.7 H (9.0-12.0) Seconds INR 7.1 H* (0.9-1.1) APTT 39.9 H (21.0-31.0) Seconds PTT Ratio 1.4 POC Sodium (135-144) mmol/L Sodium 142 (136-145) mmol/L POC Potassium (3.3-5.0) mmol/L Potassium 3.8 (3.5-5.1) mmol/L POC Chloride (101-112) mmol/L Chloride 108 H (98-107) mmol/L Carbon Dioxide 27 (21-32) mmol/L POC Total CO2 (24-31) mmol/L Anion Gap 7.0 (3-11) POC Anion Gap (16-25) mmol/L POC BUN (7-18) mg/dl BUN 18 (7-18) mg/dl Creatinine 0.82 (0.6-1.2) mg/dl POC Creatinine (0.6-1.3) mg/dl Est Cr Clr Drug Dosing 41.3 ml/min Est GFR ( Amer) 75.1 Est GFR (Non-Af Amer) 64.8 BUN/Creatinine Ratio 22.5 H (10-20) Glucose 91 (70-99) mg/dl POC Glucose (other) (70-99) mg/dl Calcium 8.7 (8.5-10.1) mg/dl POC Ioniz Calcium Gavin (1.12-1.32) mmol/l Total Bilirubin 0.3 (0.2-1) mg/dl AST 79 H (15-37) U/L ALT 159 H (12-78) U/L Alkaline Phosphatase 40 L (45-117) U/L Total Protein 5.6 L (6.4-8.2) gm/dl Albumin 2.7 L (3.4-5.0) gm/dl Globulin 2.9 (2.5-4.0) gm/dl Albumin/Globulin Ratio 0.9 (0.9-2) COVID-19 Eval Order SARS-CoV-2, RNA, NAAT (NEGATIVE) 06/14/20 06/15/20 06/15/20 Range/Units 23:03 01:39 01:39 WBC (4.8-10.8) K/uL RBC (4.2-5.4) M/uL Hgb (12.0-16.0) g/dL POC Hgb 11.9 L (12.0-16.0) g/dl Hct (37-47) % POC Hct 35 L (37-47) % MCV (80-100) fL MCH (25-34) pg MCHC (32-36) g/dL RDW Std Deviation (36.4-46.3) fL RDW Coeff of Terrance (11.5-14.5) % Plt Count (130-400) K/uL MPV (7.4-10.4) fL Immature Gran % (Auto) % Neut % (Auto) % Lymph % (Auto) % [place] % (Auto) % Eos % (Auto) % Baso % (Auto) % Neut # (Auto) (1.4-6.5) K/uL Lymph # (Auto) (1.2-3.4) K/uL [place] # (Auto) (0.11-0.59) K/uL Eos # (Auto) (0-0.5) K/uL Baso # (Auto) (0-0.2) K/uL Immature Gran # (Auto) (0.00-0.02) K/uL PT (9.0-12.0) Seconds INR (0.9-1.1) APTT (21.0-31.0) Seconds PTT Ratio POC Sodium 139 (135-144) mmol/L Sodium (136-145) mmol/L POC Potassium 4.1 (3.3-5.0) mmol/L Potassium (3.5-5.1) mmol/L POC Chloride 103 (101-112) mmol/L Chloride (98-107) mmol/L Carbon Dioxide (21-32) mmol/L POC Total CO2 28 (24-31) mmol/L Anion Gap (3-11) POC Anion Gap 13.0 L (16-25) mmol/L POC BUN 20 H (7-18) mg/dl BUN (7-18) mg/dl Creatinine (0.6-1.2) mg/dl POC Creatinine 0.8 (0.6-1.3) mg/dl Est Cr Clr Drug Dosing ml/min Est GFR ( Amer) Est GFR (Non-Af Amer) BUN/Creatinine Ratio (10-20) Glucose (70-99) mg/dl POC Glucose (other) 92 (70-99) mg/dl Calcium (8.5-10.1) mg/dl POC Ioniz Calcium Gavin 1.12 (1.12-1.32) mmol/l Total Bilirubin (0.2-1) mg/dl AST (15-37) U/L ALT (12-78) U/L Alkaline Phosphatase (45-117) U/L Total Protein (6.4-8.2) gm/dl Albumin (3.4-5.0) gm/dl Globulin (2.5-4.0) gm/dl Albumin/Globulin Ratio (0.9-2) COVID-19 Eval Order Covid19 IDNow [facility] SARS-CoV-2, RNA, NAAT NEGATIVE (NEGATIVE) Administered Medications Sodium Chloride (Nss 1000ml) 1,000 mls @ 125 mls/hr IV .Q8H STA Stop: 06/15/20 06:19 Last Admin: 06/15/20 00:38 Dose: 125 mls/hr Documented by: [id number] Discontinued Medications Hydromorphone HCl (Hydromorphone Inj 0.5 Mg/0.5 Ml Syr) 0.25 mg IV NOW STA Stop: 06/14/20 23:49 Last Admin: 06/15/20 00:06 Dose: 0.25 mg Documented by: [id number] Ioversol (Optiray 320 125ml) 125 ml IV ONCE ONE Stop: 06/15/20 00:42 Last Admin: 06/15/20 00:41 Dose: 117 ml Documented by: [id number] Discharge Plan Visit Data Chief Complaint: Referred by Doctor Stated Complaint: L LEG NUMBNESS, ED Provider: Honorio Mart Discharge Problem: Lower extremity pain, left Forms Stand Alone Forms: My [facility] Prescriptions Prescriptions: No Action Restasis 0.05 % Dropperette 1 drp OPB AMHS RF: 0 cholecalciferol (vitamin D3) [Vitamin D3] 2,000 unit Capsule 2,000 unit PO QDL RF: 0 PreserVision AREDS [id number],[id number] capsule 1 cap PO BIDM RF: 0 acetaminophen [Tylenol] 325 mg tablet 650 mg PO Q4 MDD 3g PRN (Reason: Pain) RF: 0 mercaptopurine 50 mg tablet 75 mg PO QDD RF: 0 (DME) walker misc See Dose Instructions .ROUTE .MEDSUPPLY Qty: 1 RF: 0 famotidine [Pepcid] 20 mg Tablet 20 mg PO HS RF: 0 tamoxifen 20 mg tablet 20 mg PO DAILYBB RF: 0 Adult One Daily Gummies 200 mcg Tablet,Chewable 400 mcg PO QDL RF: 0 trazodone 50 mg tablet 25 mg PO HS RF: 0 sulfasalazine 500 mg tablet 1,000 mg PO BIDM RF: 0 diltiazem HCl [Cardizem CD] 360 mg capsule,extended release 24hr 360 mg PO QDL RF: 0 clopidogrel [Plavix] 75 mg tablet 75 mg PO QDL RF: 0 rosuvastatin 5 mg tablet 5 mg PO QDD RF: 0 calcium carb and citrate-vitD3 [Citracal-D3 Slow Release] 600 mg calcium- 500 unit Tablet Extended Release 1 tab PO BIDM RF: 0 clonidine HCl 0.1 mg tablet 0.1 mg PO BIDM RF: 0 pantoprazole [Protonix] 40 mg tablet,delayed release (DR/EC) 40 mg PO BIDM RF: 0 warfarin 5 mg tablet 5 mg PO DAILY Qty: 30 RF: 4 metoprolol succinate 100 mg capsule,sprinkle,ER 24hr 100 mg PO DAILY Qty: 30 RF: 4
--- NOTE | 2020-06-15 02:15 | Anesthesiology Consultation ---
Date of Service June 15, 2020 Assessment & Plan (1) Encounter for pre-operative examination: Chart Review Chart Review: Acceptable Risk for Surgery Consults Requested none ASA [id number] Proposed Anesthesia Anesthesia Type: General Risk / Benefits Reviewed With: PT / POA / Parent / Guardian, Accepts Plan and Informed Consent Obtained History Surgery Operation Date: 06/15/20 03:00 Proposed Procedures p Thrombectomy Leg(Left) - Bubba Duncan MD Height/Weight Height: 5 ft 1.5 in Weight: 59.3 kg Allergies Allergy/AdvReac Type Severity Reaction Status Date / Time Penicillins Allergy Severe THROAT Verified 06/14/20 23:45 SWELLS, PASSES OUT aspirin Allergy Intermediate WELTS Verified 06/14/20 23:45 AROUND EYES [place] And Derivatives Allergy Mild Runny/stuffy Verified 06/14/20 23:45 nose chicken derived AdvReac Intermediate DIARRHEA Verified 06/14/20 23:45 chocolate flavor AdvReac Intermediate DIARRHEA Verified 06/14/20 23:45 lactose AdvReac Intermediate GI upset Verified 06/14/20 23:45 grass pollen-perennial rye, AdvReac Mild RUNNY Verified 06/14/20 23:45 standar NOSE/SINUS ISSUES mushroom AdvReac Mild GI SYMPTOMS Verified 06/14/20 23:45 pollen extracts AdvReac Mild RUNNY Verified 06/14/20 23:45 NOSE/SINUS ISSUES soy AdvReac Mild GI SYMPTOMS Verified 06/14/20 23:45 Ocjfbmu-Yco-Yol Reductase AdvReac Mild DID NOT Verified 06/14/20 23:45 Inhibitor WORK lorazepam AdvReac Hallucinati Verified 06/14/20 23:45 ng Medications Home Medications Medication Instructions Recorded Confirmed Last Taken Restasis 1 drp OPB AMHS 02/05/18 06/14/20 06/14/20 20:00 cholecalciferol (vitamin D3) 2,000 unit PO QDL 02/05/18 06/14/20 06/14/20 [Vitamin D3] joan #1 cristiano 03/11/19 05/24/20 Unknown Adult One Daily Gummies 400 mcg PO QDL 04/12/19 06/14/20 06/14/20 tamoxifen 20 mg PO DAILYBB 06/12/19 06/14/20 06/14/20 06:00 vitamins A,C,Z-ghkm-fkdizi 14,320 1 cap PO BIDM 08/11/19 06/14/20 06/14/20 17:00 unit-226 mg-200 unit capsule acetaminophen 325 mg tablet 650 mg PO Q4 PRN tab MDD 3g 10/08/19 06/14/20 Unknown mercaptopurine 50 mg tablet 75 mg PO QDD tablet 01/15/20 06/14/20 06/14/20 17:00 clopidogrel [Plavix] 75 mg PO QDL 05/08/20 06/14/20 06/14/20 12:00 diltiazem HCl [Cardizem CD] 360 mg PO QDL 05/08/20 06/14/20 06/14/20 12:00 rosuvastatin 5 mg PO QDD 05/08/20 06/14/20 06/14/20 17:00 sulfasalazine 1,000 mg PO BIDM 05/08/20 06/14/20 06/14/20 17:00 trazodone 25 mg PO HS 05/08/20 06/14/20 06/14/20 20:00 calcium carb and citrate-vitD3 1 tab PO BIDM 06/03/20 06/14/20 06/14/20 17:00 [Citracal-D3 Slow Release] clonidine HCl 0.1 mg PO BIDM 06/03/20 06/14/20 06/14/20 17:00 pantoprazole [Protonix] 40 mg PO BIDM 06/03/20 06/14/20 06/14/20 17:00 metoprolol succinate 100 mg PO DAILY #30 ea 06/11/20 06/14/20 06/14/20 12:00 warfarin 5 mg PO DAILY #30 tab 06/11/20 06/14/20 06/14/20 20:00 famotidine [Pepcid] 20 mg PO HS 06/14/20 06/14/20 06/14/20 20:00 Active Medications Generic Name Dose Route Start Last Admin Trade Name Freq PRN Reason Stop Dose Admin Sodium Chloride 1,000 mls @ 125 mls/hr 06/14/20 22:20 06/15/20 00:38 Nss 1000ml IV 06/15/20 06:19 125 mls/hr .Q8H STA Administration NPO Date Last Intake of Fluids: 06/14/20 Time Last Intake of Fluids: 19:00 Date Last Intake of Solids: 06/14/20 Time Last Intake of Solids: 18:30 Past Medical History Medical History (Updated 06/15/20 @ 02:28 by Bubba Duncan MD) Aortic stenosis Breast cancer (08/27/15) "Abnormal right breast mammogram 08/01/2015 Status post biopsy 08/27/2015 10:00 lesion invasive ductal carcinoma, grade 1 Estrogen receptor positive, progesterone receptor negative, HER-2/quique negative 11:00 lesion invasive lobular carcinoma, grade 1 Estrogen receptor positive, progesterone receptor positive, HER-2/quique negative Status post lumpectomy and sentinel lymph node biopsy 09/27/2015 Lobular and ductal carcinoma Stage pT1b pN1a M0 Radiation therapy stopped 01/26/2016 received 3780 cGy. Treatments stopped early due to admission for compression fracture and inability to tolerate being in the treatment position" On 02/21/16 15:06 Frances Hogan wrote "Abnormal right breast mammogram 08/01/2015 Status post biopsy 08/27/2015 10:00 lesion invasive ductal carcinoma, grade 1 Estrogen receptor positive, progesterone receptor negative, HER-2/quique negative 11:00 lesion invasive lobular carcinoma, grade 1 Estrogen receptor positive, progesterone receptor positive, HER-2/quique negative Status post lumpectomy and sentinel lymph node biopsy 09/27/2015 Lobular and ductal carcinoma Stage pT1b pN1a M0" On 02/21/16 15:06 Frances Hogan wrote "Abnormal right breast mammogram 08/01/2015 Status post biopsy 08/27/2015 10:00 lesion invasive ductal carcinoma, grade 1 Estrogen receptor positive, progesterone receptor negative, HER-2/quique negative 11:00 lesion invasive lobular carcinoma, grade 1 Estrogen receptor positive, progesterone receptor positive, HER-2/quique negative Status post lumpectomy and sentinel lymph node biopsy 09/27/2015 Lobular and ductal carcinoma Stage pT1b pN1a M0 Status post radiation therapy, treatment stopped 01/26/2016 received 3780 cGy " On 10/14/15 13:28 Frances Hogan wrote "Abnormal right breast mammogram 08/01/2015 Status post biopsy 08/27/2015 10:00 lesion invasive ductal carcinoma, grade 1 Estrogen receptor positive, progesterone receptor negative, HER-2/quique negative 11:00 lesion invasive lobular carcinoma, grade 1 Estrogen receptor positive, progesterone receptor positive, HER-2/quique nega tive Status post lumpectomy and sentinel lymph node biopsy 09/27/2015 Lobular and ductal carcinoma Stage pT1b pN1a M0 " Breast cancer RT BREAST (SX AND RADIATION) CHF (congestive heart failure) Compression fracture of lumbar vertebra Facial basal cell cancer NOSE GERD (gastroesophageal reflux disease) HLD (hyperlipidemia) HTN (hypertension) Hypertensive urgency Incarcerated paraesophageal hernia On anticoagulant therapy warfarin/plavix daily Osteoarthritis 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" (FOLLOWED BY [facility]) Paraesophageal hiatal hernia SSS (sick sinus syndrome) (02/18/14) Stroke OVER 20 YEARS AGO (NO CURRENT PROBLEMS) Ulcerative colitis Ulcerative colitis "REMISSION" Unintentional weight loss per pt reason for colonoscopy Exercise / Class Metabolic Activity III < 4 Walking/Shop/Light housework Past Family History Family History Other Benign essential HTN Coronary heart disease PVD (peripheral vascular disease) Stroke Denies family history of Ovarian cancer Prostate cancer Breast cancer Lung cancer Colorectal cancer Past Surgical History Surgical History H/O total hysterectomy UTERINE MASS REMOVED (BENIGN) History of appendectomy History of cataract surgery History of colonoscopy History of esophagogastroduodenoscopy (EGD) recently had 03/2019 @ [facility] [place] per pt they found 2 ulcers-1 in esophagus and 1 in stomach History of herniorrhaphy History of kyphoplasty History of tonsillectomy and adenoidectomy History of tooth extraction Hx of lumpectomy RT Past Anesthesia History No Hx of Anesthesia Complications and No Family Hx of Anesthesia Complications History of PONV No Hx of PONV and No Hx of Motion Sickness Social History Smoking Status: Unknown if ever smoked Hx Alcohol Use: Yes Alcohol type: wine alcohol intake frequency: holidays/special occasions only Hx Substance Use: No substance use type: does not use Physical Exam Vital Signs Last Vital Signs Temp 98.1 F 06/14/20 22:11 Pulse 76 06/15/20 02:30 Resp 20 06/15/20 02:30 BP 144/70 H 06/15/20 02:38 Pulse Ox 95 06/15/20 02:30 ENMT Mouth: no dentition abnormality Thyromental Distance: > or= 3.5 Finger Breadths Mallampati Class: II Neck normal visual inspection Respiratory normal respiratory effort Auscultation: lungs clear to auscultation bilaterally Cardiovascular Rate/Rhythm: regular rate and regular rhythm Heart Sounds: + murmur Testing Laboratory Results 06/14/20 23:00 06/14/20 23:00 PT 67.7 Seconds (9.0-12.0) H 06/14/20 23:00 INR 7.1 (0.9-1.1) H* 06/14/20 23:00 APTT 39.9 Seconds (21.0-31.0) H 06/14/20 23:00 06/14/20 23:03 POC Glucose (other) 92 Electrocardiogram Date: 06/14/20 Atrial fibrillation with frequent ventricular-paced complexes, rate [address] & T wave abnormality, consider lateral ischemia Abnormal ECG When compared with ECG of 03-JUN-2020 06:43, Electronic ventricular pacemaker has replaced Atrial fibrillation Vent. rate has decreased BY 50 BPM Echocardiogram Date: 04/14/19 Normal LV size and systolic function EF 65% No wall motion abnormalities Mild concentric LVH Severe aortic stenosis
[2020-06-15] MEDS ORDERED: PHYTONADIONE 10 MG in SODIUM CHLORIDE 0.9% 50 ML IV STA (02:28)
--- NOTE | 2020-06-15 02:29 | Consultation ---
Date of Consultation June 15, 2020 Assessment & Plan (1) Ischemia of left lower extremity: Patient with apparant embolism of the left lower extremity. Recommend operative attempt at revascularization. I have discussed the risks options and benefits of the procedure with the patient. The patient understands the risks options and benefits and agrees to the procedure. History of Present Illness Reason for Consultation: Acute ischemia of the left lower extremity History of Present Illness Patient is an 85 yo female who developed numbness of the left lower extremity around noon yesterday. This was associated with pain. Since then it has gotten progressively worse with increase pain and numbness. She does have a fib on coumadin. Her INR at this time is 7.1. She also complains that her left leg feels cold below the knee. She is hypertensive and a history of VA many years ago. Allergies Allergy/AdvReac Type Severity Reaction Status Date / Time Penicillins Allergy Severe THROAT Verified 06/14/20 23:45 SWELLS, PASSES OUT aspirin Allergy Intermediate WELTS Verified 06/14/20 23:45 AROUND EYES [place] And Derivatives Allergy Mild Runny/stuffy Verified 06/14/20 23:45 nose chicken derived AdvReac Intermediate DIARRHEA Verified 06/14/20 23:45 chocolate flavor AdvReac Intermediate DIARRHEA Verified 06/14/20 23:45 lactose AdvReac Intermediate GI upset Verified 06/14/20 23:45 grass pollen-perennial rye, AdvReac Mild RUNNY Verified 06/14/20 23:45 standar NOSE/SINUS ISSUES mushroom AdvReac Mild GI SYMPTOMS Verified 06/14/20 23:45 pollen extracts AdvReac Mild RUNNY Verified 06/14/20 23:45 NOSE/SINUS ISSUES soy AdvReac Mild GI SYMPTOMS Verified 06/14/20 23:45 Khhyhft-Tqd-Ked Reductase AdvReac Mild DID NOT Verified 06/14/20 23:45 Inhibitor WORK lorazepam AdvReac Hallucinati Verified 06/14/20 23:45 ng Home Medications Medication Instructions Recorded Confirmed Type Restasis 1 drp OPB AMHS 02/05/18 06/14/20 History cholecalciferol (vitamin D3) 2,000 unit PO QDL 02/05/18 06/14/20 History [Vitamin D3] joan #1 ea 03/11/19 05/24/20 Rx Adult One Daily Gummies 400 mcg PO QDL 04/12/19 06/14/20 History tamoxifen 20 mg PO DAILYBB 06/12/19 06/14/20 History vitamins A,C,W-ibzz-xeqlff 14,320 1 cap PO BIDM 08/11/19 06/14/20 History unit-226 mg-200 unit capsule acetaminophen 325 mg tablet 650 mg PO Q4 PRN tab MDD 3g 10/08/19 06/14/20 History mercaptopurine 50 mg tablet 75 mg PO QDD tablet 01/15/20 06/14/20 History clopidogrel [Plavix] 75 mg PO QDL 05/08/20 06/14/20 History diltiazem HCl [Cardizem CD] 360 mg PO QDL 05/08/20 06/14/20 History rosuvastatin 5 mg PO QDD 05/08/20 06/14/20 History sulfasalazine 1,000 mg PO BIDM 05/08/20 06/14/20 History trazodone 25 mg PO HS 05/08/20 06/14/20 History calcium carb and citrate-vitD3 1 tab PO BIDM 06/03/20 06/14/20 History [Citracal-D3 Slow Release] clonidine HCl 0.1 mg PO BIDM 06/03/20 06/14/20 History pantoprazole [Protonix] 40 mg PO BIDM 06/03/20 06/14/20 History metoprolol succinate 100 mg PO DAILY #30 ea 06/11/20 06/14/20 Rx warfarin 5 mg PO DAILY #30 tab 06/11/20 06/14/20 Rx famotidine [Pepcid] 20 mg PO HS 06/14/20 06/14/20 History Patient History Medical History (Updated 06/15/20 @ 02:28 by Bubba Duncan MD) Aortic stenosis Breast cancer (08/27/15) "Abnormal right breast mammogram 08/01/2015 Status post biopsy 08/27/2015 10:00 lesion invasive ductal carcinoma, grade 1 Estrogen receptor positive, progesterone receptor negative, HER-2/quique negative 11:00 lesion invasive lobular carcinoma, grade 1 Estrogen receptor positive, progesterone receptor positive, HER-2/quique negative Status post lumpectomy and sentinel lymph node biopsy 09/27/2015 Lobular and ductal carcinoma Stage pT1b pN1a M0 Radiation therapy stopped 01/26/2016 received 3780 cGy. Treatments stopped early due to admission for compression fracture and inability to tolerate aurora ng in the treatment position" On 02/21/16 15:06 Frances Hogan wrote "Abnormal right breast mammogram 08/01/2015 Status post biopsy 08/27/2015 10:00 lesion invasive ductal carcinoma, grade 1 Estrogen receptor positive, progesterone receptor negative, HER-2/quique negative 11:00 lesion invasive lobular carcinoma, grade 1 Estrogen receptor positive, progesterone receptor positive, HER-2/quique negative Status post lumpectomy and sentinel lymph node biopsy 09/27/2015 Lobular and ductal carcinoma Stage pT1b pN1a M0" On 02/21/16 15:06 Frances Hogan wrote "Abnormal right breast mammogram 08/01/2015 Status post biopsy 08/27/2015 10:00 lesion invasive ductal carcinoma, grade 1 Estrogen receptor positive, progesterone receptor negative, HER-2/quique negative 11:00 lesion invasive lobular carcinoma, grade 1 Estrogen receptor positive, progesterone receptor positive, HER-2/quique negative Status post lumpectomy and sentinel lymph node biopsy 09/27/2015 Lobular and ductal carcinoma Stage pT1b pN1a M0 Status post radiation therapy, treatment stopped 01/26/2016 received 3780 cGy " On 10/14/15 13:28 Frances Hogan wrote "Abnormal right breast mammogram 08/01/2015 Status post biopsy 08/27/2015 10:00 lesion invasive ductal carcinoma, grade 1 Estrogen receptor positive, progesterone receptor negative, HER-2/quique negative 11:00 lesion invasive lobular carcinoma, grade 1 Estrogen receptor positive, progesterone receptor positive, HER-2/quique negative Status post lumpectomy and sentinel lymph node biopsy 09/27/2015 Lobular and ductal carcinoma Stage pT1b pN1a M0 " Breast cancer RT BREAST (SX AND RADIATION) CHF (congestive heart failure) Compression fracture of lumbar vertebra Facial basal cell cancer NOSE GERD (gastroesophageal reflux disease) HLD (hyperlipidemia) HTN (hypertension) Hypertensive urgency Incarcerated paraesophageal hernia On anticoagulant therapy warfarin/plavix daily Osteoarthritis 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" (FOLLOWED BY [facility]) Paraesophageal hiatal hernia SSS (sick sinus syndrome) (02/18/14) Stroke OVER 20 YEARS AGO (NO CURRENT PROBLEMS) Ulcerative colitis Ulcerative colitis "REMISSION" Unintentional weight loss per pt reason for colonoscopy Surgical History H/O total hysterectomy UTERINE MASS REMOVED (BENIGN) History of appendectomy History of cataract surgery History of colonoscopy History of esophagogastroduodenoscopy (EGD) [place] [facility] [place] found 2 ulcers-1 in esophagus and 1 in stomach History of herniorrhaphy History of kyphoplasty History of tonsillectomy and adenoidectomy History of tooth extraction Hx of lumpectomy RT Family History Other Benign essential HTN Coronary heart disease PVD (peripheral vascular disease) Stroke Denies family history of Ovarian cancer Prostate cancer Breast cancer Lung cancer Colorectal cancer Social History Smoking Status: Unknown if ever smoked Second Hand Exposure: Yes (older brothers all smoked); Hx Alcohol Use: Yes Alcohol type: wine Hx Substance Use: No Preferred Language: Bengali Communication Ability: Effective Visual Impairment: Limited Hearing Ability: Normal Airport Driver 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: No Beliefs That Will Affect Care: None marital status: Single Current Living Situation: Personal Care Facility Current Living Situation Comment: [facility] AT [facility] current occupational status: retired Feels Safe at Home: Yes Childhood Exposure to Second-Hand Smoke: No caffeine: Yes Dental Care, Regularly: Yes Physical Activity Frequency: 1-2 Times per Week Seatbelt Use: always Sunscreen Use: Yes Assistive Devices: Denture - Upper, Denture - Lower and Walker Review of Systems Review of Systems: All systems reviewed & are unremarkable except as noted in HPI & below Physical Exam Constitutional: WD/WN, vitals as above Respiratory: normal respiratory effort; no respiratory distress Auscultation: lungs clear to auscultation bilaterally Cardiovascular: Rate/Rhythm: + irregularly irregular Gastrointestinal (Abdomen): Inspection/Auscultation: abdomen normal to inspection Percussion/Palpation: abdomen soft; abdomen nontender Musculoskeletal: Extremities: + extremities abnormal to inspection (left lower leg pale in appearance) and + abnormal strength (slightly decreased in left foot) Skin: + pallor (left lower leg) Neurologic: moves all extremities. Able to wiggle toes bilaterally. No sensation from lower 1/3rd of left leg distally. Psychiatric: Orientation: alert and oriented x 3 Results & Data ([facility]) Vital Signs (Past 12 Hours) Vital Signs Temp Pulse Resp BP Pulse Ox 06/15/20 02:00 79 17 142/75 H 06/15/20 01:31 73 19 137/67 06/15/20 01:01 73 20 95 06/15/20 01:00 75 18 130/54 L 97 06/15/20 00:40 69 17 95 06/15/20 00:39 67 14 138/49 L 95 06/15/20 00:11 67 17 124/60 96 06/14/20 23:30 69 15 97 06/14/20 23:00 63 24 97 06/14/20 22:30 64 17 97 06/14/20 22:11 36.7 C 82 13 114/61 97 06/14/20 22:02 64 18 97
[2020-06-15] MEDS ORDERED: CLINDAMYCIN 600 MG/54 ML BAG IV STA (02:33)
[2020-06-15] MEDS ORDERED: fentaNYL citrate 100 MCG/2 ML VIAL IV PRN (02:39)
[2020-06-15] MEDS ORDERED: ONDANSETRON INJ 2 MG/ML 2 ML VIAL IV PRN ×3 (02:39→05:45)
[2020-06-15] MEDS ORDERED: ATROPINE SULFATE 0.1 MG/ML 10ML SYR IV PRN (02:39)
[2020-06-15] MEDS ORDERED: ePHEDrine sulfate 50 MG/ML AMP IV PRN (02:39)
[2020-06-15] MEDS ORDERED: LIDOCAINE HCL 2% 2 ML VIAL/AMP(20MG/ML) INFIL ONE (02:54)
[2020-06-15] MEDS ORDERED: PROPOFOL IV EMULSION 10 MG/ML 20 ML VIAL IV ONE (02:54)
[2020-06-15] MEDS ORDERED: fentaNYL citrate 100 MCG/2 ML VIAL ONE (02:54)
[2020-06-15] MEDS ORDERED: HEPARIN (PORCINE) 1000 UNIT/ML 10 ML (CATH LAB USE ONLY) ONE (02:59)
[2020-06-15] MEDS ORDERED: GELATIN SPONGE SZ 100 ONE (02:59)
[2020-06-15] MEDS ORDERED: IODIXANOL (VISIPAQUE) 270 MG/ML 150ML ONE (02:59)
[2020-06-15] MEDS ORDERED: THROMBIN 5000 UNITS KIT ONE (02:59)
[2020-06-15] MEDS ORDERED: BACITRACIN INJ 50,000 UNIT VIAL ONE (03:28)
--- NOTE | 2020-06-15 03:29 | History & Physical Report ---
Date of Service June 15, 2020 Assessment & Plan (1) Ischemia of left lower extremity: Mrs. 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 On admission, she was found to have multifocal L LE arterial occlusion on CTA. - patient with report of progressive numbness and pain of L LE over the course of day preceding admission - Lower extremity CTA showing multifocal atheromatous disease with a short segment occlusion within the left popliteal artery, measuring 2 cm in length. Multifocal atheromatous disease in runoff vessels noted with occlusion of L dorsalis pedis and posterior tibial artery (official read pending). - Vascular surgery was consulted stat on admission, recommending emergent attempt at operative revascularization. Patient consented to procedure and was directly taken to OR with Dr. Duncan - patient was given 10mg IV vit K prior to procedure (due to her elevated INR). She was treated with pre-operative Clindamycin for antimicrobial ppx. She was also given stress dosing of famotidine. - patient is on chronic anticoagulation for atrial fibrillation, supratherapeutic with INR of 7.1 on arrival; thus findings of scattered arterial emboli is somewhat surprising - etiology of emboli is unknown at this time; retrospectively, would have recommended CTA of aorta with femoral runoff in an effort to localize (2) Lower extremity pain, left: - secondary to ischemia due to arterial emboli as above (3) Atrial fibrillation: - chronically anticoagulated with coumadin - continue home rate control with diltiazem (4) Supratherapeutic INR: - INR 7.1 on arrival - on coumadin as above - IV vit K given on admission in advance of procedure - follows with Dr. Houser in clinic - coumadin on hold; repeat INR in am (5) Elevated LFTs: - AST 79, ALT 159 on admission - AST was 38 and ALT was 30 on 06/06 - the explanation for this elevation is unclear - patient has been on statin (no new changes), no new Tylenol use. Unlikely to have been consuming alcohol in [facility]) - consider further work up in AM Dispo: per surgery Diet: NPO DVT ppx: contraindicated in setting of supratherapeutic INR Code: DNR/DNI History of Present Illness Primary Care Provider: Ole Spangler MD Mrs. Meehan is an 85 yo woman with a complicated PMHx notable for a cerebral artery occlusion with cerebral infarction, atrial fibrillation on anticoagulation with coumadin, sick sinus syndrome s/p pacemaker placement who presented to the ED with new onset L leg pain. Of note, she was recently admitted to [facility] from 06/03/20 to 06/11/20 for a high-grade gastric outlet obstruction and concern for possible SMA syndrome. She was discharged to the [facility] at the [facility], where she was ambulatory everyday. During her previous admission she had no surgeries or procedures. Today she woke up feeling well. She worked with a speech therapist at the [facility], had lunch and then laid down for a nap. When she awoke, she noticed her left lower leg was numb. She got up to use the restroom and noticed the left "wasn't working right," although she was able to make it to the restroom and back without falling or it giving way. As the day progressed, the numbness increased and she began to experience pain in the left leg below the knee. She reported her symptoms to a nurse at the [facility], who arranged transport to the ED. In the ED her WBC was normal. Hgb low at 10.5 COVID 19 neg. Lucrecia normal. Cr normal. INR elevated to 7.1. ALT 159. AST 79. A Lower extremity CTA showed multifocal atheromatous disease with a short segment occlusion within the left popliteal artery, measuring 2 cm in length. Multifocal atheromatous disease in runoff vessels noted with occlusion of L dorsalis pedis and posterior tibial artery (official read pending). Vascular surgery was consulted STAT. Allergies Allergy/AdvReac Type Severity Reaction Status Date / Time Penicillins Allergy Severe THROAT Verified 06/14/20 23:45 SWELLS, PASSES OUT aspirin Allergy Intermediate WELTS Verified 06/14/20 23:45 AROUND EYES [place] And Derivatives Allergy Mild Runny/stuffy Verified 06/14/20 23:45 nose mayonnaise Allergy Verified 06/15/20 10:45 chicken derived AdvReac Intermediate DIARRHEA Verified 06/14/20 23:45 chocolate flavor AdvReac Intermediate DIARRHEA Verified 06/14/20 23:45 lactose AdvReac Intermediate GI upset Verified 06/14/20 23:45 grass pollen-perennial rye, AdvReac Mild RUNNY Verified 06/14/20 23:45 standar NOSE/SINUS ISSUES mushroom AdvReac Mild GI SYMPTOMS Verified 06/14/20 23:45 pollen extracts AdvReac Mild RUNNY Verified 06/14/20 23:45 NOSE/SINUS ISSUES soy AdvReac Mild GI SYMPTOMS Verified 06/14/20 23:45 Maslprs-Fnz-Sab Reductase AdvReac Mild DID NOT Verified 06/14/20 23:45 Inhibitor WORK lorazepam AdvReac Hallucinati Verified 06/14/20 23:45 ng Home Medications Medication Instructions Recorded Confirmed Type Restasis 1 drp OPB AMHS 02/05/18 06/14/20 History cholecalciferol (vitamin D3) 2,000 unit PO QDL 02/05/18 06/14/20 History [Vitamin D3] joan #1 ea 03/11/19 05/24/20 Rx Adult One Daily Gummies 400 mcg PO QDL 04/12/19 06/14/20 History tamoxifen 20 mg PO DAILYBB 06/12/19 06/14/20 History vitamins A,C,W-xssy-rmmxgc 14,320 1 cap PO BIDM 08/11/19 06/14/20 History unit-226 mg-200 unit capsule acetaminophen 325 mg tablet 650 mg PO Q4 PRN tab MDD 3g 10/08/19 06/14/20 History mercaptopurine 50 mg tablet 75 mg PO QDD tablet 01/15/20 06/14/20 History clopidogrel [Plavix] 75 mg PO QDL 05/08/20 06/14/20 History diltiazem HCl [Cardizem CD] 360 mg PO QDL 05/08/20 06/14/20 History rosuvastatin 5 mg PO QDD 05/08/20 06/14/20 History sulfasalazine 1,000 mg PO BIDM 05/08/20 06/14/20 History trazodone 25 mg PO HS 05/08/20 06/14/20 History calcium carb and citrate-vitD3 1 tab PO BIDM 06/03/20 06/14/20 History [Citracal-D3 Slow Release] clonidine HCl 0.1 mg PO BIDM 06/03/20 06/14/20 History pantoprazole [Protonix] 40 mg PO BIDM 06/03/20 06/14/20 History metoprolol succinate 100 mg PO DAILY #30 ea 06/11/20 06/14/20 Rx warfarin 5 mg PO DAILY #30 tab 06/11/20 06/14/20 Rx famotidine [Pepcid] 20 mg PO HS 06/14/20 06/14/20 History Past Med/Surg History Medical History (Updated 06/15/20 @ 04:24 by Yecenia Kuo MD) Aortic stenosis Breast cancer (08/27/15) "Abnormal right breast mammogram 08/01/2015 Status post biopsy 08/27/2015 10:00 lesion invasive ductal carcinoma, grade 1 Estrogen receptor positive, progesterone receptor negative, HER-2/quique negative 11:00 lesion invasive lobular carcinoma, grade 1 Estrogen receptor positive, progesterone receptor positive, HER-2/quique negative Status post lumpectomy and sentinel lymph node biopsy 09/27/2015 Lobular and ductal carcinoma Stage pT1b pN1a M0 Radiation therapy stopped 01/26/2016 received 3780 cGy. Treatments stopped early due to admission for compression fracture and inability to tolerate being in the treatment position" On 02/21/16 15:06 Frances Hogan wrote "Abnormal right breast mammogram 08/01/2015 Status post biopsy 08/27/2015 10:00 lesion invasive ductal carcinoma, grade 1 Estrogen receptor positive, progesterone receptor negative, HER-2/quique negative 11:00 lesion invasive lobular carcinoma, grade 1 Estrogen receptor positive, progesterone receptor positive, HER-2/quique negative Status post lumpectomy and sentinel lymph node biopsy 09/27/2015 Lobular and ductal carcinoma Stage pT1b pN1a M0" On 02/21/16 15:06 Frances Hogan wrote "Abnormal right breast mammogram 08/01/2015 Status post biopsy 08/27/2015 10:00 lesion invasive ductal carcinoma, grade 1 Estrogen receptor positive, progesterone receptor negative, HER-2/quique negative 11:00 lesion invasive lobular carcinoma, grade 1 Estrogen receptor positive, progesterone receptor positive, HER-2/quique negative Status post lumpectomy and sentinel lymph node biopsy 09/27/2015 Lobular and ductal carcinoma Stage pT1b pN1a M0 Status post radiation therapy, treatment stopped 01/26/2016 received 3780 cGy " On 10/14/15 13:28 Frances Hogan wrote "Abnormal right breast mammogram 08/01/2015 Status post biopsy 08/27/2015 10:00 lesion invasive ductal carcinoma, grade 1 Estrogen receptor positive, progesterone receptor negative, HER-2/quique negative 11:00 lesion invasive lobular carcinoma, grade 1 Estrogen receptor positive, progesterone receptor positive, HER-2/quique negative Status post lumpectomy and sentinel lymph node biopsy 09/27/2015 Lobular and ductal carcinoma Stage pT1b pN1a M0 " Breast cancer RT BREAST (SX AND RADIATION) CHF (congestive heart failure) Compression fracture of lumbar vertebra Facial basal cell cancer NOSE GERD (gastroesophageal reflux disease) HLD (hyperlipidemia) HTN (hypertension) Hypertensive urgency Incarcerated paraesophageal hernia On anticoagulant therapy warfarin/plavix daily Osteoarthritis 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" (FOLLOWED BY [facility]) Paraesophageal hiatal hernia SSS (sick sinus syndrome) (02/18/14) Stroke OVER 20 YEARS AGO (NO CURRENT PROBLEMS) Ulcerative colitis Ulcerative colitis "REMISSION" Unintentional weight loss per pt reason for colonoscopy Surgical History H/O total hysterectomy UTERINE MASS REMOVED (BENIGN) History of appendectomy History of cataract surgery History of colonoscopy History of esophagogastroduodenoscopy (EGD) recently had 03/2019 @ [facility] per pt they found 2 ulcers-1 in esophagus and 1 in stomach History of herniorrhaphy History of kyphoplasty History of tonsillectomy and adenoidectomy History of tooth extraction Hx of lumpectomy RT Family History Other Benign essential HTN Coronary heart disease PVD (peripheral vascular disease) Stroke Denies family history of Ovarian cancer Prostate cancer Breast cancer Lung cancer Colorectal cancer Social History Smoking Status: Never smoker Second Hand Exposure: Yes (older brothers all smoked); Hx Alcohol Use: Yes Alcohol type: wine Hx Substance Use: No Preferred Language: Scottish Communication Ability: Effective Visual Impairment: Limited Hearing Ability: Normal Tele Marketing Executive Required: No Beliefs That Will Affect Care: None marital status: Single Current Living Situation: Personal Care Facility Current Living Situation Comment: [facility] current occupational status: retired Other Information That Helps Us Care for You: No Feels Safe at Home: Yes Safety Concerns: Feels Safe At This Time Childhood Exposure to Second-Hand Smoke: No caffeine: Yes Dental Care, Regularly: Yes Physical Activity Frequency: 1-2 Times per Week Seatbelt Use: always Sunscreen Use: Yes Assistive Devices: Denture - Upper, Denture - Lower and Glasses Review of Systems Musculoskeletal: + left leg pain Physical Exam Constitutional: WD/WN, vitals as above cooperative; no acute distress Eyes: + anicteric sclerae ENMT: external ear and nose normal, oropharynx normal Neck: normal visual inspection and trachea midline Respiratory: normal respiratory effort, lungs clear to auscultation Auscultation: no crackles and no wheezes Cardiovascular: Rate/Rhythm: regular rate and regular rhythm Heart Sounds: normal S1, normal S2 and + murmur (systolic ejection, radiated to carotids ) Vessels: normal carotid upstroke; + abnormal peripheral pulses (L posterior tib and dorsalis pedis unpalable) Extremities: + abnormal capillary refill (delayed on L LE) Gastrointestinal (Abdomen): normal bowel sounds, soft, nontender, no hepatosplenomegaly L LE cool to touch. L foot not sensate to gross touch. Skin: no rashes, warm and dry Psychiatric: A+Ox3, euthymic affect Results & Data Results & Data ([facility]) Vital Signs (Past 12 Hours) Vital Signs Temp Pulse Resp BP Pulse Ox 06/15/20 02:38 144/70 H 06/15/20 02:30 76 20 140/61 95 06/15/20 02:00 79 17 142/75 H 06/15/20 01:31 73 19 137/67 06/15/20 01:01 73 20 95 06/15/20 01:00 75 18 130/54 L 97 06/15/20 00:40 69 17 95 06/15/20 00:39 67 14 138/49 L 95 06/15/20 00:11 67 17 124/60 96 06/14/20 23:30 69 15 97 06/14/20 23:00 63 24 97 06/14/20 22:30 64 17 97 06/14/20 22:11 36.7 C 82 13 114/61 97 06/14/20 22:02 64 18 97 Code Status & VTE Plan VTE Prophylaxis Plan VTE Prophylaxis will be ordered: Yes Supervising Physician Co-Signing Physician Notes Attending addendum: I have physically seen this patient, have supervised the medical residents activities, and agree with the H&P unless as otherwise noted. Assessment and Plan: Left lower extremity ischemia- Lower extremity CTA which showed occlusion of a 2 cm segment of the left popliteal artery, occlusion of dorsalis pedis artery and posterior tibial artery. INR is been supratherapeutic at 7.1. Vascular surgery Dr. Duncan has been consulted, and is planning on taking the patient to the OR emergently this evening. Will ultimately need aortic angiogram with runoff to look for embolic source. Also order echocardiogram to assess for embolic source Atrial fibrillation/hypertension- Anticoagulation is supratherapeutic at this time with INR 7.1, which were reversed with IV vitamin K per Dr. Duncan Following surgery, patient will need to have medication adjustments and her usual clonidine, diltiazem and metoprolol succinate dosages if taken orally, otherwise will need IV. Remaining orders and notations as noted Resident Activity Tracking Resident Involvement: Resident Care Provided Care Provided: Adult Hospital Medicine
[2020-06-15] MEDS ORDERED: SUCCINYLCHOLINE CHLORIDE 20 MG/ML 10 ML VIAL IV ONE (03:37)
[2020-06-15] MEDS ORDERED: THROMBIN FOR SOLN 20000 UNIT KIT ONE (03:39)
[2020-06-15] MEDS ORDERED: ROCURONIUM BROMIDE 10 MG/ML 5 ML VIAL IV ONE (05:09)
[2020-06-15] MEDS ORDERED: NEOSTIGMINE METHYLSULFATE 5 MG/5 ML SYR ONE (05:09)
[2020-06-15] MEDS ORDERED: ONDANSETRON INJ 2 MG/ML 2 ML VIAL ONE (05:09)
[2020-06-15] MEDS ORDERED: GLYCOPYRROLATE 0.2 MG/ML VIAL ONE (05:09)
[2020-06-15] MEDS ORDERED: DEXAMETHASONE SOD INJ 4 MG/ML VIAL ONE (05:10)
--- NOTE | 2020-06-15 05:13 | Operative Report ---
Post Operative Report Pre & Post Diagnosis Operation Date: 06/15/20 03:00 Pre-Op Diagnosis: Ischemia of left lower extremity Post-Op Diagnosis: Ischemia of left lower extremity I identified the patient and participated in the time-out.: Yes Procedure Operation Date: 06/15/20 03:00 Actual Procedures p Open Left Lower Extremity Thrombectomy, Left Lower Extremity Arteriorgram, Balloon Angioplasty Left Superficial Femoral and Popliteal Artery (Left) - Bubba Duncan MD Surgeon Bubba Duncan MD Work Study Student None Estimated Blood Loss 25 Findings Consistent with Post-Op Diagnosis Specimens None Anesthesia Type General Complications none Disposition Accompanied Patient To Recovery: No Disposition: Recovery Room Indications This is an 85-year-old female who around noon yesterday developed numbness in her left foot with coldness in the lower extremity. Disc progressed during the day the point where she cannot feel her foot. She was having pain in the left foot which was relieved with Dilaudid in the ED. CT angiogram showed occlusion of the popliteal artery. She does have a history of atrial fibrillation on warfarin. Her INR was 7.1. At this point we recommended operative thrombectomy. We will give her AquaMEPHYTON to lower her INR and start her on heparin at that time. I have discussed the risks options and benefits of the procedure with the patient. The patient understands the risks options and benefits and agrees to the procedure. Description of Procedure Patient was taken to the operating placed in the supine position. The left leg was prepped and draped in a sterile manner after general anesthesia was accomplished. Timeout was performed and the patient was identified. Longitudinal groin incision was then made. This is carried down to where the distal common femoral artery and the proximal superficial femoral arteries were identified. There is an excellent pulse at that level. There is also a good pulse in the profunda femoral artery. It was decided to arch the arteriotomy in the superficial femoral artery proximally 5 cm from its origin. The artery was then clamped proximal distally. Transverse arteriotomy was then performed. Using a #3 Adarsh catheter a's small well organized clot was removed from the left lower extremity most likely from the popliteal artery. The catheter did pass all the way in its entirety down the leg. There was backbleeding seen at that time. We did do another pass and extracted no further clot. There was 2 areas where the Adarsh catheter did hang up on the way up the leg. Then closed the arteriotomy with interrupted 6-0 Prolene's. A separate puncture was made slightly distally on the superficial femoral artery and a 6 [place] sheath inserted. Arteriography revealed a 90% narrowing of the superficial femoral artery just proximal to the adductor hiatus and another 90% narrowing at the level of the mid popliteal. 035 wire was then passed through both lesions. An angled glide catheter was then inserted and the wire was removed. Hand- injection confirmed that the catheter was in true lumen. Wire was reinserted and the 2 areas in the popliteal and superficial femoral artery were then dilated with a 5 x 4 balloon without difficulty. Excellent results were seen with no residual stenosis in either of these areas. The wire and sheath were then pulled and the puncture site was closed using interrupted 6-0 Prolene. The foot pinked up nicely and she had excellent Doppler signals in the dorsalis pedis and posterior tibial left foot. The calf and anterior compartments were soft. Being that they were soft no fasciotomies were performed. Adequate hemostasis was then obtained of the groin. After incision showed good hemostasis it was closed using a running 2-0 Vicryl for the femoral sheath and a running 3-0 Vicryl for subcutaneous layer. Spencer were used for the skin edges. Sterile dressings were applied to the wound.The patient left the opera tion room in satisfactory condition and tolerated the procedure well. All needle and sponge counts were correct at the end of the procedure. Patient will be placed on heparin until her results of her INR are back. I would treat her with 24 hours of heparinization and restart her Coumadin tomorrow until we have a therapeutic INR is obtained. I attest to the content of the Intraoperative Record and any orders documented therein. Any exceptions are noted below.
[2020-06-15] MEDS ORDERED: HEPARIN 25000 UNIT/500 ML D5W IV ONE (06:12)
[2020-06-15] MEDS: D5W AND 1/2NSS 1,000 ML IV SCH (06:17)
[2020-06-15] MEDS: HEPARIN SODIUM/DEXTROSE 25,000 UNITS/500 ML BAG IV SCH (06:18)
[2020-06-15] MEDS: Heparin IV Standard *NO* Bolus IV SCH ×2 (06:32→06:57)
[2020-06-15 06:44] LABS: INR 2.8 (0.9-1.1); Prothrombin Time 28.1 Seconds (9.0-12.0)
--- NOTE | 2020-06-15 06:46 | Anesthesiology Progress Note ---
Date of Service June 15, 2020 Anesthesia Post Procedure Vital Signs Vital Signs: Temp Pulse Pulse Resp BP BP Pulse Ox 06/15/20 06:24 77 18 161/70 H 96 06/15/20 05:30 97.9 F 71 21 155/61 H 100 06/15/20 05:20 77 19 141/66 H 97 06/15/20 05:10 66 13 138/57 L 98 06/15/20 05:08 97.9 F 74 18 146/64 H 98 06/15/20 05:02 98.4 F 76 22 131/53 L 97 06/15/20 02:38 144/70 H 06/15/20 02:30 76 20 140/61 95 06/15/20 02:00 79 17 142/75 H 06/15/20 01:31 73 19 137/67 06/15/20 01:01 73 20 95 06/15/20 01:00 75 18 130/54 L 97 06/15/20 00:40 69 17 95 06/15/20 00:39 67 14 138/49 L 95 06/15/20 00:11 67 17 124/60 96 06/14/20 23:30 69 15 97 06/14/20 23:00 63 24 97 06/14/20 22:30 64 17 97 06/14/20 22:11 98.1 F 82 13 114/61 97 06/14/20 22:02 64 18 97 Pain Intensity Left Leg: Pain Intensity: 3 Transfer of Care Handoff Completed per policy Notes Mental Status: alert / awake / arousable and participated in evaluation Patient Amnestic to Procedure: Yes Nausea / Vomiting: adequately controlled Pain: adequately controlled Airway Patency, RR, SpO2: stable & adequate BP & HR: stable & adequate Hydration State: stable & adequate Anesthetic Complications: no major complications apparent and Pt Satisfied with anesthetic care
[2020-06-15] MEDS: sulfaSALAzine 500 MG TABLET PO SCH ×2 (08:05→16:57)
[2020-06-15] MEDS: TAMOXIFEN CITRATE 10 MG TABLET PO SCH (08:05)
[2020-06-15] MEDS: cloNIDine HCL 0.1 MG TAB PO SCH ×2 (08:06→16:56)
[2020-06-15] MEDS: PANTOprazole 40 MG TAB PO SCH ×2 (08:06→16:57)
[2020-06-15] MEDS: FAMOTIDINE 20 MG in SYRINGE 3 ML IV SCH ×2 (08:06→19:47)
[2020-06-15] MEDS: METOPROLOL SUCC 50MG EXT REL TAB PO SCH (08:06)
--- NOTE | 2020-06-15 08:52 | CT Scan Report ---
CT angio LE LT w inc wo if don HISTORY: cold left leg, no pulse TECHNIQUE: Multiaxial CT images of the left lower extremity were performed following the intravenous administration of 117 cc of Optiray 320 to evaluate the major dural structures. Maximal intensity pro jection images were also obtained. COMPARISON STUDY: None. FINDINGS: The left external iliac and proximal left internal iliac arteries are patent. The mid to di stal branches of the left and internal iliac artery are occluded. The left common femoral artery is w idely patent. The left deep femoral artery is also patent. There is moderate scattered calcified plaq ue within the left superficial femoral artery. This results in multifocal areas of mild narrowing wit hin the left proximal to mid superficial femoral artery. There is a focal area of high-grade stenosis of approximately 75% within the distal left superficial femoral artery on image 359. There is a foca l 2 cm segment of short segment occlusion within the left mid popliteal artery best seen in image 504 . There is distal reconstitution due to the small collaterals. The left peroneal artery is diminutive but likely patent. There is distal occlusion of the left anterior tibial and posterior tibial arteri es at the level of the ankle. The dorsalis pedis artery is unopacified also likely occluded. IMPRESSION: 1. A short segment occlusion within the mid left popliteal artery measuring 2 cm with distal reconsti tution due to small collaterals. 2. Focal area of high-grade stenosis within the distal left superficial femoral artery. 3. The mid to distal branches of the left internal iliac artery are occluded. 4. Distal occlusion of the left anterior tibial and posterior tibial arteries at the level the ankle. ACT 112: Negative or not required by law. Electronically signed by: Sedrick Rodriguez M.D. 06/15/2020 8:51 AM
[2020-06-15] MEDS: CLINDAMYCIN 600 MG/54 ML BAG IV SCH ×2 (12:01→18:19)
[2020-06-15] MEDS: dilTIAZem HCL 180 MG CAPCR PO SCH (12:01)
[2020-06-15] MEDS: CLOPIDOGREL BISULFATE 75 MG TAB PO SCH (12:01)
[2020-06-15 14:06] LABS: Partial Thromboplastin Time 84.1 Seconds (21.0-31.0)
[2020-06-15] MEDS: ROSUVASTATIN CALCIUM 5 MG TAB PO SCH (16:56)
[2020-06-15] MEDS: MERCAPTOPURINE 50 MG TAB PO SCH (16:56)
[2020-06-15] MEDS: FAMOTIDINE 20 MG TAB PO SCH (19:48)
[2020-06-15] MEDS: traZODone HCL 50 MG TAB PO SCH (19:48)
--- NOTE | 2020-06-15 20:41 | Billing Data ---
Date of Service June 15, 2020 Coding Level of Care Code 99533 Initial Inpt Care Lvl 3
[2020-06-15 21:00] LABS: Partial Thromboplastin Ratio 2.4
[2020-06-15 21:09] LABS: Partial Thromboplastin Time 65.7 Seconds (21.0-31.0)
[2020-06-16] MEDS: TAMOXIFEN CITRATE 10 MG TABLET PO SCH (05:04)
[2020-06-16 05:53] LABS: BUN Creatinine Ratio 17.1 (10-20); Calcium 8.4 mg/dl (8.5-10.1); Creatinine Clr Calc Pharmacy 40.1 ml/min; Est GFR (African American) 71.9; Potassium 4.3 mmol/L (3.5-5.1)
[2020-06-16 06:02] LABS: INR 1.1 (0.9-1.1); Partial Thromboplastin Ratio 2.4
[2020-06-16 06:03] LABS: Partial Thromboplastin Time 66.7 Seconds (21.0-31.0)
[2020-06-16 06:11] LABS: Basophils # (auto) 0.02 K/uL (0-0.2); Basophils % (auto) 0.2 %; Hemoglobin 10.1 g/dL (12.0-16.0); Immature Granulocytes # (auto) 0.04 K/uL (0.00-0.02); Immature Granulocytes % (auto) 0.3 %; Lymphocytes # (auto) 1.06 K/uL (1.2-3.4); Lymphocytes % (auto) 8.9 %; Mean Corpuscular Hemoglobin 32.9 pg (25-34); Mean Corpuscular Hgb Conc 31.6 g/dL (32-36); Mean Corpuscular Volume 104.2 fL (80-100); Mean Platelet Volume 11.3 fL (7.4-10.4); Monocytes # (auto) 1.34 K/uL (0.11-0.59); Monocytes % (auto) 11.2 %; Neutrophils # (auto) 9.47 K/uL (1.4-6.5); Neutrophils % (auto) 79.4 %; Platelet Count 398 K/uL (130-400); RDW Coefficient of Variation 16.4 % (11.5-14.5); RDW Standard Deviation 62.4 fL (36.4-46.3); Red Blood Count 3.07 M/uL (4.2-5.4); White Blood Count 11.93 K/uL (4.8-10.8)
--- NOTE | 2020-06-16 06:20 | Electrocardiogram Report ---
Test Reason : Blood Pressure : / mmHG Vent. Rate : 067 BPM Atrial Rate : 468 BPM P-R Int : 000 ms QRS Dur : 108 ms QT Int : 420 ms P-R-T Axes : 000 031 167 degrees QTc Int : 443 ms Atrial fibrillation with frequent ventricular-paced complexes Abnormal ECG When compared with ECG of 03-JUN-2020 06:43, Ventricuar pacing is now present Vent. rate has decreased BY 50 BPM Confirmed by Dany Whittington ([id number]) on 06/16/2020 6:19:51 AM Referred By: Ole Plummer Confirmed By:Dany Whittington
[2020-06-16] MEDS: METOPROLOL SUCC 50MG EXT REL TAB PO SCH (09:02)
[2020-06-16] MEDS: sulfaSALAzine 500 MG TABLET PO SCH ×2 (09:03→16:44)
[2020-06-16] MEDS: PANTOprazole 40 MG TAB PO SCH ×2 (09:03→16:45)
[2020-06-16] MEDS: cloNIDine HCL 0.1 MG TAB PO SCH ×2 (09:03→16:46)
[2020-06-16] MEDS: FAMOTIDINE 20 MG in SYRINGE 3 ML IV SCH (09:08)
[2020-06-16] MEDS: HEPARIN SODIUM/DEXTROSE 25,000 UNITS/500 ML BAG IV SCH (09:10)
[2020-06-16] MEDS: D5W AND 1/2NSS 1,000 ML IV SCH (11:19)
[2020-06-16] MEDS: dilTIAZem HCL 180 MG CAPCR PO SCH (11:23)
[2020-06-16] MEDS: CLOPIDOGREL BISULFATE 75 MG TAB PO SCH (11:23)
[2020-06-16] MEDS ORDERED: WARFARIN SOD 5 MG TAB PO ONE (12:32)
--- NOTE | 2020-06-16 12:49 | Surgery Progress Note ---
Date of Service June 16, 2020 Assessment & Plan (1) Ischemia of left lower extremity: Charline is day 1 postop from embolectomy of the left lower extremity with balloon angioplasty of the superficial femoral-popliteal arteries. She is doing well. She has no restrictions from our standpoint and can be discharged as per medical service. We will see her in the office in 2 weeks for follow-up. Thank you very much for letting us participate in the care of this patient. Admission and Anticipated Discharge Date Admission Date: June 15, 2020 Subjective Patient claims her left foot now feels normal. She has no pain or numbness in the foot at all. She is able to move it without difficulty. Physical Exam Physical Exam: Incision the left groin is dry and clean. There is no evidence of hematoma. She is got good signals in her left foot. Foot is pink with good capillary refill. There is no motor deficits or sensation deficits in left foot. Constitutional: WD/WN, vitals as above Results & Data ([facility]) Vital Signs (Past 12 Hours) Vital Signs Temp Pulse Resp BP Pulse Ox 06/16/20 12:37 36.5 C 77 20 105/56 L 96 06/16/20 06:40 36.6 C 84 18 109/63 96 06/16/20 03:01 36.4 C L 64 17 102/65 96
[2020-06-16 14:33] LABS: Partial Thromboplastin Ratio 1.9
[2020-06-16 14:38] LABS: Partial Thromboplastin Time 53.8 Seconds (21.0-31.0)
[2020-06-16] MEDS: MERCAPTOPURINE 50 MG TAB PO SCH (16:42)
[2020-06-16] MEDS: ROSUVASTATIN CALCIUM 5 MG TAB PO SCH (16:42)
[2020-06-16] MEDS: ENOXAPARIN INJ 60 MG/0.6 ML SYR SQ SCH (18:34)
--- NOTE | 2020-06-16 19:22 | XCELERA ---
[id number]
[2020-06-16] MEDS: traZODone HCL 50 MG TAB PO SCH (21:51)
[2020-06-16] MEDS: FAMOTIDINE 20 MG TAB PO SCH (21:52)
--- NOTE | 2020-06-16 22:34 | Hospitalist Progress Note ---
Date of Service June 16, 2020 Assessment & Plan (1) Ischemia of left lower extremity: Mrs. 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 On admission, she was found to have multifocal L LE arterial occlusion on CTA. S/P embolectomy. - patient with report of progressive numbness and pain of L LE over the course of day preceding admission - Lower extremity CTA showing multifocal atheromatous disease with a short segment occlusion within the left popliteal artery, measuring 2 cm in length. Multifocal atheromatous disease in runoff vessels noted with occlusion of L dorsalis pedis and posterior tibial artery (official read pending). -s/p vIT K nOW ON hEPARIN iv WILL TRANSITION TO LOVENOX and continue warfarin. will need to overlap for at least 5 days. D/W Dr. Duran, does not appear to be a warfarin failure as patient was not able to take warfarin during previous admission due to SBO. (2) Lower extremity pain, left: - secondary to ischemia due to arterial emboli as above (3) Atrial fibrillation: - chronically anticoagulated with coumadin - continue home rate control with diltiazem (4) Supratherapeutic INR: - INR 7.1 on arrival - on coumadin as above - IV vit K given on admission in advance of procedure - follows with Dr. Houser in [facility] clinic - coumadin on hold; repeat INR in am (5) Elevated LFTs: - AST 79, ALT 159 on admission - AST was 38 and ALT was 30 on 06/06 - the explanation for this elevation is unclear - patient has been on statin (no new changes), no new Tylenol use. Unlikely to have been consuming alcohol in [facility] ([facility]) - consider further work up in AM Admission and Anticipated Discharge Date Admission Date: June 15, 2020 Subjective Patient reports feeling well. She has no new complaints. Review of Systems Review of Systems: All systems reviewed & are unremarkable except as noted in HPI & below Physical Exam Physical Exam: Constitutional: WD/WN, vitals as above cooperative; no acute distress Eyes: + anicteric sclerae ENMT: external ear and nose normal, oropharynx normal Neck: normal visual inspection and trachea midline Respiratory: normal respiratory effort, lungs clear to auscultation Auscultation: no crackles and no wheezes Cardiovascular: Rate/Rhythm: regular rate and regular rhythm Heart Sounds: normal S1, normal S2 and + murmur (systolic ejection, radiated to carotids ) Vessels: normal carotid upstroke; + abnormal peripheral pulses (L posterior tib and dorsalis pedis unpalable) Extremities: + abnormal capillary refill (delayed on L LE) Gastrointestinal (Abdomen): normal bowel sounds, soft, nontender, no hepatosplenomegaly L LE cool to touch. L foot not sensate to gross touch. Skin: no rashes, warm and dry Psychiatric: A+Ox3, euthymic affect Results & Data Results & Data ([facility]) Vital Signs (Past 12 Hours) Vital Signs Temp Pulse Resp BP Pulse Ox 06/16/20 17:00 36.6 C 69 18 114/55 L 95 06/16/20 15:19 36.5 C 65 20 105/66 96 06/16/20 12:37 36.5 C 77 20 105/56 L 96 PG Care Time/CCT Total # of Minutes Spent Total Time Spent with Patient: Total time spent is greater than 50% in coordination of care (as documented) at patient's floor/unit and/or counseling patient: Coding Level of Care Code 45830 Subseq Hosp Care Lvl 3 Diagnoses Ischemia of left lower extremity I99.8 Lower extremity pain, left M79.605 Atrial fibrillation I48.91 Supratherapeutic INR R79.1 Elevated LFTs R79.89 Time Spent (min) 35
[2020-06-17] MEDS: FAMOTIDINE 20 MG in SYRINGE 3 ML IV SCH (01:53)
[2020-06-17] MEDS: ENOXAPARIN INJ 60 MG/0.6 ML SYR SQ SCH ×2 (05:19→17:04)
[2020-06-17] MEDS: TAMOXIFEN CITRATE 10 MG TABLET PO SCH (05:20)
[2020-06-17] MEDS: D5W AND 1/2NSS 1,000 ML IV SCH (05:27)
[2020-06-17] MEDS: sulfaSALAzine 500 MG TABLET PO SCH ×2 (08:37→16:07)
[2020-06-17] MEDS: PANTOprazole 40 MG TAB PO SCH ×2 (08:38→16:09)
[2020-06-17] MEDS: cloNIDine HCL 0.1 MG TAB PO SCH ×2 (09:10→16:07)
[2020-06-17] MEDS: METOPROLOL SUCC 50MG EXT REL TAB PO SCH (09:11)
[2020-06-17] MEDS: dilTIAZem HCL 180 MG CAPCR PO SCH (11:44)
[2020-06-17] MEDS: CLOPIDOGREL BISULFATE 75 MG TAB PO SCH (11:44)
[2020-06-17] MEDS: MERCAPTOPURINE 50 MG TAB PO SCH (16:08)
[2020-06-17] MEDS: ROSUVASTATIN CALCIUM 5 MG TAB PO SCH (16:09)
[2020-06-17] MEDS ORDERED: WARFARIN SOD 5 MG TAB PO ONE (17:31)
[2020-06-17] MEDS: FAMOTIDINE 20 MG TAB PO SCH (20:59)
[2020-06-17] MEDS: traZODone HCL 50 MG TAB PO SCH (20:59)
--- NOTE | 2020-06-17 22:31 | Hospitalist Progress Note ---
Date of Service June 17, 2020 Assessment & Plan (1) Ischemia of left lower extremity: Mrs. 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 On admission, she was found to have multifocal L LE arterial occlusion on CTA. S/P embolectomy. - patient with report of progressive numbness and pain of L LE over the course of day preceding admission - Lower extremity CTA showing multifocal atheromatous disease with a short segment occlusion within the left popliteal artery, measuring 2 cm in length. Multifocal atheromatous disease in runoff vessels noted with occlusion of L dorsalis pedis and posterior tibial artery (official read pending). -s/p vIT K On lovenox and continue warfarin. will need to overlap for at least 5 days with therapeutic INR above 2 for 24h. D/W Dr. Duran, does not appear to be a warfarin failure as patient was not able to take warfarin during previous admission due to SBO. (2) Lower extremity pain, left: - secondary to ischemia due to arterial emboli as above (3) Atrial fibrillation: Paroxysmal chronic a fib - chronically anticoagulated with coumadin - continue home rate control with diltiazem (4) Supratherapeutic INR: - INR 7.1 on arrival - on coumadin as above - IV vit K given on admission in advance of procedure - follows with Dr. Houser in [facility] clinic - INR now subtherapeutic as above. cont. coumadin (5) Elevated LFTs: - AST 79, ALT 159 on admission - AST was 38 and ALT was 30 on 06/06 - the explanation for this elevation is unclear - patient has been on statin (no new changes), no new Tylenol use. Unlikely to have been consuming alcohol in [facility] [place] - consider further work up in AM Admission and Anticipated Discharge Date Admission Date: June 15, 2020 Subjective Patient is comfortable. denies any complaints Review of Systems Review of Systems: All systems reviewed & are unremarkable except as noted in HPI & below Physical Exam Physical Exam: Constitutional: WD/WN, vitals as above cooperative; no acute distress Eyes: + anicteric sclerae ENMT: external ear and nose normal, oropharynx normal Neck: normal visual inspection and trachea midline Respiratory: normal respiratory effort, lungs clear to auscultation Auscultation: no crackles and no wheezes Cardiovascular: Rate/Rhythm: regular rate and regular rhythm Heart Sounds: normal S1, normal S2 and + murmur (systolic ejection, radiated to carotids ) Vessels: normal carotid upstroke; normal pulses Gastrointestinal (Abdomen): normal bowel sounds, soft, nontender, no hepatosplenomegaly Skin: no rashes, warm and dry Psychiatric: A+Ox3, euthymic affect Results & Data Results & Data ([facility]) Vital Signs (Past 12 Hours) Vital Signs Temp Pulse Resp BP Pulse Ox 06/17/20 15:32 36.6 C 71 17 113/61 96 PG Care Time/CCT Total # of Minutes Spent Total Time Spent with Patient: Total time spent is greater than 50% in coordination of care (as documented) at patient's floor/unit and/or counseling patient: Coding Level of Care Code 56901 Subseq Hosp Care Lvl 2 Diagnoses Ischemia of left lower extremity I99.8 Lower extremity pain, left M79.605 Atrial fibrillation I48.91 Supratherapeutic INR R79.1 Elevated LFTs R79.89 Time Spent (min) 25
[2020-06-18] MEDS: TAMOXIFEN CITRATE 10 MG TABLET PO SCH (06:06)
[2020-06-18] MEDS: ENOXAPARIN INJ 60 MG/0.6 ML SYR SQ SCH (06:07)
[2020-06-18] MEDS: HYDROCODONE/ACETAMOPHEN 5/325MG TAB PO PRN ×2 (06:12→10:13)
[2020-06-18 07:05] LABS: INR 1.2 (0.9-1.1); Prothrombin Time 12.9 Seconds (9.0-12.0)
[2020-06-18 07:49] VITALS: TEMP 97.5; O2SAT 92
[2020-06-18] MEDS: PANTOprazole 40 MG TAB PO SCH (07:49)
[2020-06-18] MEDS: METOPROLOL SUCC 50MG EXT REL TAB PO SCH (07:51)
[2020-06-18] MEDS ORDERED: Nursing to Pharmacy Communication SCH (09:30)
[2020-06-18] MEDS: sulfaSALAzine 500 MG TABLET PO SCH (09:51)
[2020-06-18] MEDS: cloNIDine HCL 0.1 MG TAB PO SCH (09:51)
--- NOTE | 2020-06-18 11:36 | Discharge Summary ---
Date of Service June 18, 2020 Admission HPI Per Admitting Provider Mrs. Meehan is an 85 yo woman with a complicated PMHx notable for a cerebral artery occlusion with cerebral infarction, atrial fibrillation on anticoagulation with coumadin, sick sinus syndrome s/p pacemaker placement who presented to the ED with new onset L leg pain. Of note, she was recently admitted to [facility] from 06/03/20 to 06/11/20 for a high-grade gastric outlet obstruction and concern for possible SMA syndrome. She was discharged to the [facility] at the [facility], where she was ambulatory everyday. During her previous admission she had no surgeries or procedures. Today she woke up feeling well. She worked with a speech therapist at the [facility], had lunch and then laid down for a nap. When she awoke, she noticed her left lower leg was numb. She got up to use the restroom and noticed the left "wasn't working right," although she was able to make it to the restroom and back without falling or it giving way. As the day progressed, the numbness increased and she began to experience pain in the left leg below the knee. She reported her symptoms to a nurse at the [facility], who arranged transport to the ED. In the ED her WBC was normal. Hgb low at 10.5 COVID 19 neg. Lucrecia normal. Cr normal. INR elevated to 7.1. ALT 159. AST 79. A Lower extremity CTA showed multifocal atheromatous disease with a short segment occlusion within the left popliteal artery, measuring 2 cm in length. Multifocal atheromatous disease in runoff vessels noted with occlusion of L dorsalis pedis and posterior tibial artery (official read pending). Vascular surgery was consulted STAT. Admission Exam Per Admitting Provider Physical Exam Constitutional: WD/WN, vitals as above cooperative; no acute distress Eyes: + anicteric sclerae ENMT: external ear and nose normal, oropharynx normal Neck: normal visual inspection and trachea midline Respiratory: normal respiratory effort, lungs clear to auscultation Auscultation: no crackles and no wheezes Cardiovascular: Rate/Rhythm: regular rate and regular rhythm Heart Sounds: normal S1, normal S2 and + murmur (systolic ejection, radiated to carotids ) Vessels: normal carotid upstroke; + abnormal peripheral pulses (L posterior tib and dorsalis pedis unpalable) Extremities: + abnormal capillary refill (delayed on L LE) Gastrointestinal (Abdomen): normal bowel sounds, soft, nontender, no hepatosplenomegaly L LE cool to touch. L foot not sensate to gross touch. Skin: no rashes, warm and dry Psychiatric: A+Ox3, euthymic affect Principal Diagnosis Left lower extremity ischemia s/p embolectomy Discharge Exam Constitutional WD/WN, vitals as above Eyes EOM intact bilaterally; no conjunctival abnormality ENMT external ear and nose normal, oropharynx normal Neck trachea midline, no thyromegaly normal visual inspection Respiratory normal respiratory effort, lungs clear to auscultation no respiratory distress Cardiovascular RRR, no murmur, no edema Gastrointestinal (Abdomen) Inspection/Auscultation: abdomen normal to inspection; abdomen not distended Musculoskeletal no cyanosis or clubbing, extremities motor strength 5/5 (Left foot warm and well-perfused. Incision without erythema, drainage, bldi) Skin no rashes, warm and dry Neurologic moves all extremities and awake Psychiatric Orientation: alert, oriented to person and cooperative Discharge Data Allergies Allergy/AdvReac Type Severity Reaction Status Date / Time Penicillins Allergy Severe THROAT Verified 06/14/20 23:45 SWELLS, PASSES OUT aspirin Allergy Intermediate WELTS Verified 06/14/20 23:45 AROUND EYES [place] And Derivatives Allergy Mild Runny/stuffy Verified 06/14/20 23:45 nose mayonnaise Allergy Verified 06/15/20 10:45 chicken derived AdvReac Intermediate DIARRHEA Verified 06/14/20 23:45 chocolate flavor AdvReac Intermediate DIARRHEA Verified 06/14/20 23:45 lactose AdvReac Intermediate GI upset Verified 06/14/20 23:45 grass pollen-perennial rye, AdvReac Mild RUNNY Verified 06/14/20 23:45 standar NOSE/SINUS ISSUES mushroom AdvReac Mild GI SYMPTOMS Verified 06/14/20 23:45 pollen extracts AdvReac Mild RUNNY Verified 06/14/20 23:45 NOSE/SINUS ISSUES soy AdvReac Mild GI SYMPTOMS Verified 06/14/20 23:45 Tahvgwo-Bcg-Ebj Reductase AdvReac Mild DID NOT Verified 06/14/20 23:45 Inhibitor WORK lorazepam AdvReac Hallucinati Verified 06/14/20 23:45 ng Consultations 06/15/20 01:41 ED Decision to Admit Stat 06/16/20 08:00 Consult Case Management - Discharge Planning Routine Procedures Performed Operation Date: 06/15/20 03:00 Actual Procedures p Open Left Lower Extremity Thrombectomy, Left Lower Extremity Arteriorgram, Balloon Angioplasty Left Superficial Femoral and Popliteal Artery (Left) - Bubba Duncan MD Ordered Studies 06/14/20 22:20 CT angio LE LT w inc wo if don Urgent 06/15/20 04:27 EV angio LE LT Stat Hospital Course (1) Ischemia of left lower extremity: Mrs. 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 On admission, she was found to have multifocal L LE arterial occlusion on CTA. - S/P embolectomy by Dr. Duncan on 06/15. - patient with report of progressive numbness and pain of L LE over the course of day preceding admission - Lower extremity CTA showing multifocal atheromatous disease with a short segment occlusion within the left popliteal artery, measuring 2 cm in length. Multifocal atheromatous disease in runoff vessels noted with occlusion of L dorsalis pedis and posterior tibial artery (official read pending). - s/p vit K - Now on lovenox inj and continue warfarin daily. INR at time of dc was 1.2. Recheck INR within 3 days after dc. - Will need to overlap for at least 5 days with therapeutic INR above 2. Discussion held during admission with Dr. Duran- this does not appear to be a warfarin failure as patient was not able to take warfarin during previous admission due to SBO. (2) Lower extremity pain, left: - secondary to ischemia due to arterial emboli as above (3) Atrial fibrillation: - Paroxysmal chronic a fib - chronically anticoagulated with coumadin - continue home rate control with diltiazem (4) Supratherapeutic INR: - INR 7.1 on arrival - coumadin as above - IV vit K given on admission in advance of procedure - follows with Dr. Duran in [facility] - INR now subtherapeutic as above. (5) Elevated LFTs: - AST 79, ALT 159 on admission - AST was 38 and ALT was 30 on 06/06 - the explanation for this elevation is unclear - patient has been on statin (no new changes), no new Tylenol use. Unlikely to have been consuming alcohol in [facility] [place] - Recheck as outpatient per PCP Total Time Total Time Spent Total Time Spent (In Minutes): 34 min Discharge Plan Discharge Items Patient Disposition: Transfer Halfway Fac Reason For Visit: LEFT LEG CLOT Discharge Diagnosis: Ischemia of the left lower extremity, clot s/p embolectomy Condition on Discharge: Good Activity: Resume your previous activity Lifting: Gradually increase as tolerated Bathing: Keep incision dry Exercise/Sports: Gradually increase as tolerated Weightbearing: Full weightbearing Non-emergency contact: Primary Care Provider Call non-emergency contact if: you have any medication questions and your pain is worsening Follow-up/Referrals: Ole Spangler MD [Primary Care Provider] - 06/24/20 9:45 am Bubba Duncan MD [Physician] - 07/01/20 2:15 pm (Call [phone] to schedule a post-operative appointment. It should be about 2 weeks from now.) Diet: Heart Healthy Ilda Attending Provider Instructions: You were admitted to [facility] due to left lower extremity pain and diagnosed with bloot clot in the artery causing reduced blood flow, which required surgical intervention with embolectomy by vascular surgeon. During your stay here you were treated with supportive care, medications including blood thinners and your symptoms improved. Medications: Continue taking your previous medications as prescribed. Continue these blood thinning medications as directed: - Lovenox 60 mg Q12H via subcutaneous injection. You will need to take this until further directed, with 5 days of overlap with therapeutic INR between 2-3 on warfarin. - Warfarin 5 mg by mouth daily On discharge (on 06/18/2020) your INR was 1.2. Have blood work checked within 3 days to follow INR. - Continue Plavix Appointments: Follow up with PCP within 1 week, an appointment has been requested for you. Follow up with Dr. Duncan within 2 weeks, an appointment has been requested for you. Addtl Locator Provider Instructions: ACTIVITY RECOMMENDATIONS: See Above SPECIAL CARE INSTRUCTIONS: Call your doctor if: * Temperature above 101 degrees * Pain not relieved by pain medicine ordered * There is increased drainage or redness from any incision * You have any unanswered questions or concerns. Call [phone] to schedule a follow up appointment if one not already scheduled. Pending Studies at Discharge: No Stand-Alone Forms: My [facility] Skilled Items Patient informed of condition?: Yes DNR: Yes Discharge Level of Care: Acute rehab Communicable Disease: No Discharge Prognosis: Stable Lines: None Urinary Catheter: No Medications and DC Order Prescriptions: New enoxaparin 60 mg/0.6 mL Syringe 60 mg subcut Q12H Qty: 30 RF: 0 hydrocodone-acetaminophen [[place]] 5-325 mg Tablet 1 - 2 tab PO Q4H PRN (Reason: pain) Qty: 20 RF: 0 Continued Restasis 0.05 % Dropperette 1 drp OPB AMHS RF: 0 cholecalciferol (vitamin D3) [Vitamin D3] 2,000 unit Capsule 2,000 unit PO QDL RF: 0 PreserVision AREDS [id number] ejge-du-[id number] capsule 1 cap PO BIDM RF: 0 acetaminophen [Tylenol] 325 mg tablet 650 mg PO Q4 MDD 3g PRN (Reason: Pain) RF: 0 mercaptopurine 50 mg tablet 75 mg PO QDD RF: 0 (DME) walker misc See Dose Instructions .ROUTE .MEDSUPPLY Qty: 1 RF: 0 famotidine [Pepcid] 20 mg Tablet 20 mg PO HS RF: 0 tamoxifen 20 mg tablet 20 mg PO DAILYBB RF: 0 Adult One Daily Gummies 200 mcg Tablet,Chewable 400 mcg PO QDL RF: 0 trazodone 50 mg tablet 25 mg PO HS RF: 0 sulfasalazine 500 mg tablet 1,000 mg PO BIDM RF: 0 diltiazem HCl [Cardizem CD] 360 mg capsule,extended release 24hr 360 mg PO QDL RF: 0 clopidogrel [Plavix] 75 mg tablet 75 mg PO QDL RF: 0 rosuvastatin 5 mg tablet 5 mg PO QDD RF: 0 calcium carb and citrate-vitD3 [Citracal-D3 Slow Release] 600 mg calcium- 500 unit Tablet Extended Release 1 tab PO BIDM RF: 0 clonidine HCl 0.1 mg tablet 0.1 mg PO BIDM RF: 0 pantoprazole [Protonix] 40 mg tablet,delayed release (DR/EC) 40 mg PO BIDM RF: 0 warfarin 5 mg tablet 5 mg PO DAILY Qty: 30 RF: 4 metoprolol succinate 100 mg capsule,sprinkle,ER 24hr 100 mg PO DAILY Qty: 30 RF: 4 Discharge Orders: Discharge Order (Routine); Ordered 06/18/20 Ordered By: Deya Ness/Other Patient Handouts: DVT Dc Admission Data Admit Date/Time: 06/15/20 02:26 Attending Provider: Vinh Rudd Admit Provider: Yecenia Kuo Primary Care Provider: Ole Spangler Other Providers: [place] ; Vinh Rudd Other Interventions: Discharge Summary Assessment (RN) Last Done: 06/18/20 10:18 Coding Level of Care Code D/C Day Management >30 mins Diagnoses Ischemia of left lower extremity I99.8 Lower extremity pain, left M79.605 Atrial fibrillation I48.91 Supratherapeutic INR R79.1 Elevated LFTs R79.89
[2020-06-18] MEDS ORDERED: cloNIDine HCL 0.1 MG TAB PO SCH (12:00)
[2020-06-18] MEDS ORDERED: sulfaSALAzine 500 MG TABLET PO SCH (12:00)
[2020-06-18] MEDS: D5W AND 1/2NSS 1,000 ML IV SCH (12:06)
[2020-06-18 12:09] VITALS: BP 123/59; PULSE 76
[2020-06-18] MEDS: dilTIAZem HCL 180 MG CAPCR PO SCH (12:10)
[2020-06-18] MEDS: CLOPIDOGREL BISULFATE 75 MG TAB PO SCH (12:10)
[2020-06-18] MEDS ORDERED: WARFARIN SOD 5 MG TAB PO SCH (16:00)
== END 2020-06-18 14:26 | DRG 253 ==
LOC: ED 21:53 → SUATTDRO 06-15 02:26 → OR 06-15 03:00 → 1E 06-15 03:01 → SUATTDRO 06-15 03:01 → 2S 06-15 16:33 → 3W 06-16 16:59

== ENCOUNTER 2020-11-23 07:05 | Inpatient (IN) ==
[2020-11-23] MEDS ORDERED: ACETAMINOPHEN 325 MG TAB PO STA (07:23)
--- NOTE | 2020-11-23 07:29 | Emergency Department Note ---
Impression & Plan Ischemia of left lower extremity, Acute leg pain ED Provider Note NAME: AMAIRANI BOUCHER AGE: 85 SEX: F : 1935 ARRIVES VIA: Ambulance INFORMANT: Patient ED PROVIDER(S): Pee López DO CHIEF COMPLAINT: left leg pain HPI: Patient is an 85-year-old female that presents the ER for left lower extremity pain. She initially notes that it is numb but she has some paresthesias over the left lateral ankle in the distribution of about 1 inch. She notes that is where the pain radiates to from her calf. Pain is about a 6 out of 10 with walking. She has a known DVT and was placed on Coumadin back in September. Ultrasounds were performed at [facility]. She denies any headache or change in vision. No chest pain or shortness of breath. No weakn ess or numbness in the arms or legs. No other exacerbating or remitting factors. She has been taking her blood thinner and has not missed any doses. She does follow with vascular for the left lower extremity. ROS: See above HPI for pertinent positives & negatives. A total of 10 systems reviewed and were otherwise negative. PAST MEDICAL HISTORY:See Below PAST SURGICAL HISTORY:See Below FAMILY HISTORY:See Below SOCIAL HISTORY:See Below HOME MEDICATIONS:See Below ALLERGIES:See Below VITALS:See Below PHYSICAL EXAMINATION: GENERAL: Sitting up in bed, alert, well appearing, well nourished, no distress, non-toxic EYE EXAM: normal conjunctiva. PERRL and EOM's intact. OROPHARYNX: no exudate, no erythema, lips, buccal mucosa, and tongue normal and mucous membranes are moist NECK: supple, no nuchal rigidity, no adenopathy, non-tender LUNGS: Clear to auscultation. Normal chest wall mechanics HEART: no murmurs, S1 normal and S2 normal ABDOMEN: abdomen soft, non-tender, normo-active bowel sounds, no masses, no rebound or guarding. UPPER EXTREMITIES: upper extremities are grossly normal. LOWER EXTREMITIES: Flexion and extension of the hips, knees, ankles, and EHL 5/5 bilaterally. Gross sensation is intact. DPs are 2/4 bilateral. Left calf slightly smaller than right calf difficult to find DP and PTs. left leg is pale with delayed cap refill NEURO EXAM: Normal sensorium, cranial nerves II-XII grossly intact, normal speech, no gross weakness of arms, no gross weakness of legs. MEDICAL DECISION MAKING: Patient is an 85-year-old female who presents the ER for left lower extremity pain. On my exam patient has a pale and slightly cooler left lower extremity than the right. DP and PT unable to appreciate. IV was established blood work was obtained. Labs show a leukopenia 4.2 thousand. No significant anemia. INR was therapeutic at 2.8. BMP with LFTs bilirubin was unremarkable. Covid was negative. Venous duplex of the lower extremity showed no DVT. Arterial Dopplers show monophasic waveform in the lower extremity combination with a tibial artery occlusion. Vascular surgery was consulted and they evaluated the patient and will take him to the OR for an angiogram. Held on heparin as patient's INR is 2.8. Triage Nursing notes reviewed. Limited review of prior medical records performed Vital Signs: reviewed and remarkable for HTN Differential diagnosis: DVT, musculoskeletal, infection, joint effusion, trauma, lymphedema, idiopathic, CHF, as well as other pathologies. ER treatment provided: See below Diagnostics interpreted by me: ECG: none Cardiac Monitoring: An order was placed for continuous cardiac monitoring. The monitor shows a rate of 72 with sinus rhythm. Laboratory studies: As stated above and show below. Imaging studies: Venous Doppler was negative Arterial ultrasound as discussed below Consultation(s): Patient was seen and evaluated by Dr. Duncan and taken to the OR Procedures: none Critical Care: I have personally spent 33 minutes of critical care time in the direct management of this patient. This includes bedside care, interpretation of diagnostic studies, and testing, discussion with consultants, patient, and [facility] ly members, and other required patient management activities. This 33 minutes is in excess of all separately billable procedures. Past Med/Surg History Medical History Aortic stenosis Breast cancer (08/27/15) "Abnormal right breast mammogram 08/01/2015 Status post biopsy 08/27/2015 10:00 lesion invasive ductal carcinoma, grade 1 Estrogen receptor positive, progesterone receptor negative, HER-2/quique negative 11:00 lesion invasive lobular carcinoma, grade 1 Estrogen receptor positive, progesterone receptor positive, HER-2/quique negative Status post lumpectomy and sentinel lymph node biopsy 09/27/2015 Lobular and ductal carcinoma Stage pT1b pN1a M0 Radiation therapy stopped 01/26/2016 received 3780 cGy. Treatments stopped early due to admission for compression fracture and inability to tolerate being in the treatment position" On 02/21/16 15:06 Frances Hogan wrote "Abnormal right breast mammogram 08/01/2015 Status post biopsy 08/27/2015 10:00 lesion invasive ductal carcinoma, grade 1 Estrogen receptor positive, progesterone receptor negative, HER-2/quique negative 11:00 lesion invasive lobular carcinoma, grade 1 Estrogen receptor positive, progesterone receptor positive, HER-2/quique negative Status post lumpectomy and sentinel lymph node biopsy 09/27/2015 Lobular and ductal carcinoma Stage pT1b pN1a M0" On 02/21/16 15:06 Frances Hogan wrote "Abnormal right breast mammogram 08/01/2015 Status post biopsy 08/27/2015 10:00 lesion invasive ductal carcinoma, grade 1 Estrogen receptor positive, progesterone receptor negative, HER-2/quique negative 11:00 lesion invasive lobular carcinoma, grade 1 Estrogen receptor positive, progesterone receptor positive, HER-2/quique negative Status post lumpectomy and sentinel lymph node biopsy 09/27/2015 Lobular and ductal carcinoma Stage pT1b pN1a M0 Status post radiation therapy, treatment stopped 01/26/2016 received 3780 cGy " On 10/14/15 13:28 Frances Hogan wrote "Abnormal right breast mammogram 08/01/2015 Status post biopsy 08/27/2015 10:00 lesion invasive ductal carcinoma, grade 1 Estrogen receptor positive, progesterone receptor negative, HER-2/quique negative 11:00 lesion invasive lobular carcinoma, grade 1 Estrogen receptor positive, progesterone receptor positive, HER-2/quique negative Status post lumpectomy and sentinel lymph node biopsy 09/27/2015 Lobular and ductal carcinoma Stage pT1b pN1a M0 " Breast cancer RT BREAST (SX AND RADIATION) CHF (congestive heart failure) Compression fracture of lumbar vertebra Facial basal cell cancer NOSE GERD (gastroesophageal reflux disease) HLD (hyperlipidemia) HTN (hypertension) Hypertensive urgency Incarcerated paraesophageal hernia Lower extremity pain, left On anticoagulant therapy warfarin/plavix daily Osteoarthritis 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" (FOLLOWED BY [facility]) Paraesophageal hiatal hernia SSS (sick sinus syndrome) (02/18/14) Stroke OVER 20 YEARS AGO (NO CURRENT PROBLEMS) Ulcerative colitis Ulcerative colitis "REMISSION" Unintentional weight loss per pt reason for colonoscopy Surgical History H/O total hysterectomy UTERINE MASS REMOVED (BENIGN) History of appendectomy History of cataract surgery History of colonoscopy History of esophagogastroduodenoscopy (EGD) recently had 03/2019 @ [facility] per pt they found 2 ulcers-1 in esophagus and 1 in stomach History of herniorrhaphy History of kyphoplasty History of tonsillectomy and adenoidectomy History of tooth extraction Hx of lumpectomy RT Family History Other Benign essential HTN Coronary heart disease PVD (peripheral vascular disease) Stroke Denies family history of Ovarian cancer Prostate cancer Breast cancer Lung cancer Colorectal cancer Social History Smoking Status: Never smoker Second Hand Exposure: No (older brothers all smoked); Hx Alcohol Use: Yes Alcohol type: wine Alcohol Intake Frequency: Monthly or Less Hx Substance Use: No Preferred Language: Cook Islander Communication Ability: Effective Visual Impairment: Limited Hearing Ability: Normal Customer Success Representative Required: No Beliefs That Will Affect Care: None marital status: Single Current Living Situation: Personal Care Facility Current Living Situation Comment: [facility] current occupational status: retired How many Children do You have: 0 Feels Safe at Home: Yes Childhood Exposure to Second-Hand Smoke: No caffeine: Yes (drinks soda ) Dental Care, Regularly: Yes Physical Activity Frequency: Daily Physical Activity Frequency Comment: walks daily Seatbelt Use: always Sunscreen Use: No Assistive Devices: Walker Allergies Allergies Allergy/AdvReac Type Severity Reaction Status Date / Time Penicillins Allergy Severe THROAT Verified 11/23/20 07:35 SWELLS, PASSES OUT aspirin Allergy Intermediate WELTS Verified 11/23/20 07:35 AROUND EYES [place] And Derivatives Allergy Mild Runny/stuffy Verified 11/23/20 07:35 nose mayonnaise Allergy Verified 11/23/20 07:35 chicken derived AdvReac Intermediate DIARRHEA Verified 11/23/20 07:35 chocolate flavor AdvReac Intermediate DIARRHEA Verified 11/23/20 07:35 lactose AdvReac Intermediate GI upset Verified 11/23/20 07:35 grass pollen-perennial rye, AdvReac Mild RUNNY Verified 11/23/20 07:35 standar NOSE/SINUS ISSUES mushroom AdvReac Mild GI SYMPTOMS Verified 11/23/20 07:35 pollen extracts AdvReac Mild RUNNY Verified 11/23/20 07:35 NOSE/SINUS ISSUES soy AdvReac Mild GI SYMPTOMS Verified 11/11/20 09:52 Xpjckjm-Ehr-Gte Reductase AdvReac Mild DID NOT Verified 11/11/20 09:52 Inhibitor WORK lorazepam AdvReac Hallucinati Verified 11/11/20 09:52 ng Home Meds Home Medications Medication Instructions Recorded Confirmed calcium carb,cit ER 600 mg-vit D3 1 tab PO BID tab 07/05/20 11/23/20 12.5 mcg (500 unit) tablet,ext.rel cholecalciferol (vitamin D3) 50 2,000 unit PO DAILY@1200 cap 07/05/20 11/23/20 mcg (2,000 unit) capsule cyclosporine 0.05 % eye drops in a 1 drp OPB BID ea 07/05/20 11/23/20 dropperette mercaptopurine 50 mg tablet 75 mg PO QDD tab 07/05/20 11/23/20 multivitamin with minerals-folic 1 tab PO DAILY@1200 tab 07/05/20 11/23/20 acid 200 mcg chewable tablet metoprolol succinate 100 mg 150 mg PO DAILY@1200 08/17/20 11/23/20 tablet,extended release 24 hr clonidine HCl 0.1 mg PO BID 11/23/20 11/23/20 clopidogrel [Plavix] 75 mg PO DAILY@1200 11/23/20 11/23/20 cyclosporine [Restasis] 1 drp OPB Q12H 11/23/20 11/23/20 denosumab [Prolia] 60 mg SUBCUT Q6M 11/23/20 11/23/20 diltiazem HCl [Cardizem CD] 360 mg PO DAILY@1200 11/23/20 11/23/20 furosemide [Lasix] 20 mg PO DAILY PRN 11/23/20 11/23/20 loratadine [Claritin] 10 mg PO DAILY PRN 11/23/20 11/23/20 pantoprazole [Protonix] 40 mg PO BIDM 11/23/20 11/23/20 rosuvastatin 5 mg PO QDD 11/23/20 11/23/20 sulfasalazine 1,000 mg PO BID 11/23/20 11/23/20 tamoxifen 20 mg PO QAM 11/23/20 11/23/20 tramadol [Ultram] 50 mg PO Q8H PRN 11/23/20 11/23/20 trazodone 25 mg PO HS 11/23/20 11/23/20 vitamins A,C,[id number]-ixjn-zhurmx 2 tab PO BID 11/23/20 11/23/20 [PreserVision AREDS] Previous Rx's Medication Instructions Recorded walker #1 ea 03/11/19 warfarin 3 mg tablet See Rx Instructions PO UD #135 tab 09/30/20 Results & Data (ED) Vital Signs Vital Signs - 24 hr 11/23/20 07:15 11/23/20 07:30 11/23/20 07:53 Temperature 37 C Temperature Source Oral Pulse Rate 82 77 Respiratory Rate 18 13 Respiratory Depth Normal Blood Pressure 157/99 H 170/88 H Blood Pressure Mean 118 115 Pulse Oximetry 97 95 Oxygen Delivery Method Room Air Room Air Sepsis Recent Fever Within 48 Hours No Sepsis New/Unexplained Change in Mental Status No Sepsis Action Taken by Nursing No Action Required 11/23/20 08:55 11/23/20 08:56 11/23/20 09:00 Temperature Temperature Source Pulse Rate 89 83 78 Respiratory Rate 16 14 16 Respiratory Depth Blood Pressure 156/108 H 169/88 H Blood Pressure Mean 124 115 Pulse Oximetry Oxygen Delivery Method Sepsis Recent Fever Within 48 Hours Sepsis New/Unexplained Change in Mental Status Sepsis Action Taken by Nursing 11/23/20 09:01 11/23/20 09:30 11/23/20 09:31 Temperature Temperature Source Pulse Rate 77 89 74 Respiratory Rate 16 18 16 Respiratory Depth Blood Pressure 144/75 H Blood Pressure Mean 98 Pulse Oximetry Oxygen Delivery Method Sepsis Recent Fever Within 48 Hours Sepsis New/Unexplained Change in Mental Status Sepsis Action Taken by Nursing 11/23/20 09:32 11/23/20 10:03 11/23/20 10:04 Temperature Temperature Source Pulse Rate 83 84 86 Respiratory Rate 16 21 14 Respiratory Depth Blood Pressure 157/77 H Blood Pressure Mean 103 Pulse Oximetry Oxygen Delivery Method Sepsis Recent Fever Within 48 Hours Sepsis New/Unexplained Change in Mental Status Sepsis Action Taken by Nursing 11/23/20 10:30 Temperature Temperature Source Pulse Rate 74 Respiratory Rate 15 Respiratory Depth Blood Pressure Blood Pressure Mean Pulse Oximetry Oxygen Delivery Method Sepsis Recent Fever Within 48 Hours Sepsis New/Unexplained Change in Mental Status Sepsis Action Taken by Nursing Laboratory Data Result diagrams: 11/23/20 08:04 11/23/20 08:04 Lab Results 11/23/20 11/23/20 11/23/20 Range/Units 08:04 08:04 08:04 WBC 4.27 L (4.8-10.8) K/uL RBC 3.79 L (4.2-5.4) M/uL Hgb 13.3 (12.0-16.0) g/dL Hct 41.2 (37-47) % MCV 108.7 H (80-100) fL MCH 35.1 H (25-34) pg MCHC 32.3 (32-36) g/dL RDW Std Deviation 64.0 H (36.4-46.3) fL RDW Coeff of Terrance 16.2 H (11.5-14.5) % Plt Count 331 (130-400) K/uL MPV 10.3 (7.4-10.4) fL Immature Gran % (Auto) 0.0 % Neut % (Auto) 62.8 % Lymph % (Auto) 19.2 % Greenlee % (Auto) 13.8 % Eos % (Auto) 2.6 % Baso % (Auto) 1.6 % Neut # (Auto) 2.68 (1.4-6.5) K/uL Lymph # (Auto) 0.82 L (1.2-3.4) K/uL Greenlee # (Auto) 0.59 (0.11-0.59) K/uL Eos # (Auto) 0.11 (0-0.5) K/uL Baso # (Auto) 0.07 (0-0.2) K/uL Immature Gran # (Auto) 0.00 (0.00-0.02) K/uL PT 26.6 H (9.0-12.0) Seconds INR 2.8 H (0.9-1.1) Sodium 140 (136-145) mmol/L Potassium 4.4 (3.5-5.1) mmol/L Chloride 106 (98-107) mmol/L Carbon Dioxide 31 (21-32) mmol/L Anion Gap 3.0 (3-11) BUN 12 (7-18) mg/dl Creatinine 0.69 (0.6-1.2) mg/dl Est Cr Clr Drug Dosing 49.8 ml/min Est GFR ( Amer) 91.4 ml/min Est GFR (Non-Af Amer) 78.8 ml/min BUN/Creatinine Ratio 17.7 (10-20) Glucose 96 (70-99) mg/dl Calcium 9.6 (8.5-10.1) mg/dl Total Bilirubin 0.8 (0.2-1) mg/dl AST 31 (15-37) U/L ALT 32 (12-78) U/L Alkaline Phosphatase 55 (45-117) U/L Total Protein 7.4 (6.4-8.2) gm/dl Albumin 3.7 (3.4-5.0) gm/dl Globulin 3.7 (2.5-4.0) gm/dl Albumin/Globulin Ratio 1.0 (0.9-2) Administered Medications Heparin Sodium/Dextrose (Heparin Sodium/Dextrose) 25,000 units in 500 mls @ 19 mls/hr IV .Q24H [facility]; Protocol Stop: 12/23/20 10:44 Last Admin: 11/23/20 12:02 Dose: 950 units/hr, 19 mls/hr Documented by: [id number] Cosigned by: [id number] Discontinued Medications Acetaminophen (Acetaminophen 325 Mg Tab) 650 mg PO NOW STA Stop: 11/23/20 07:24 Last Admin: 11/23/20 08:06 Dose: 650 mg Documented by: [id number] Heparin Sodium/Dextrose (Heparin Iv Adult Wt-Based Standard *No* Bolus Protocol) 1 ea IV NOW STA Stop: 11/23/20 11:31 Last Admin: 11/23/20 12:02 Dose: 1 ea Documented by: [id number] Imaging Data Radiologist's Impression: Duplex Scan Lower Extremity Artery 11/23/20 07:23 ULTRASOUND LEFT LOWER EXTREMITY ARTERIAL CLINICAL HISTORY: Left calf pain. COMPARISON STUDY: CT angiogram of the left lower extremity dated 06/15/2020. TECHNIQUE: Real-time, grayscale and color Doppler sonography of the arteries of the left lower extremity is performed from the inguinal crease to the foot. FINDINGS: Advanced atherosclerotic plaque and irregularity is seen throughout the arteries of the left lower extremity. The left common femoral artery is patent with triphasic waveforms and velocities measuring up to 74 cm/s. The profunda femoris artery is patent with velocities measured 86 cm/s. Monophasic flow is seen throughout the remaining arteries of the left lower extremity. Velocities in the proximal superficial femoral artery measure up to 155 cm/s and velocities in the midportion of the left superficial femoral artery measure up to 165 cm/s. There is blunted arterial upstroke in the distal superficial femoral artery as well as the calf arteries. Elevated velocities in the popl iteal artery measure up to 241 cm/s. The left posterior tibial artery appears occluded. The anterior tibial and peroneal arteries appear patent with velocities measuring up to 66 cm/s. The dorsalis pedis artery is patent with velocities measuring up to 30 cm/s. IMPRESSION: 1. Advanced atherosclerotic change is noted throughout the arteries of the left upper extremity. 2. There are focally elevated velocities within the popliteal artery suggesting high grade stenosis. 3. The posterior tibial artery appears occluded. This is new from the 06/15/2020 CT angiogram. Dictated: 11/23/2020 9:04 AM Transcribed: 11/23/2020 9:12 AM Claudette [id number] [facility] Electronically signed by: Jordi Parrish M.D. 11/23/2020 9:14 AM Venous Doppler Study 11/23/20 07:23 LEFT LOWER EXTREMITY VENOUS DOPPLER HISTORY: Left leg pain. History of DVT. COMPARISON STUDY: None. FINDINGS: There is normal compressibility, flow, and augmentation within the left lower extremity deep venous system. IMPRESSION: No DVT within the left lower extremity. ACT 112: Negative or not required by law. Electronically signed by: Sedrick Rodriguez M.D. 11/23/2020 9:07 AM Discharge Plan Visit Data Chief Complaint: Leg Injury/Pain Stated Complaint: LEFT LOWER LEG NUMBNESS ED Provider: Pee López Discharge Problem: Ischemia of left lower extremity, Acute leg pain Patient Disposition: Admitted As Inpatient Discharge Instructions Interventions: ED Discharge Assessment Last Done: 11/23/20 12:30 Discharge Problem: Acute leg pain Qualifiers: Laterality: left Qualified Code(s): M79.605 - Pain in left leg
[2020-11-23 08:20] LABS: Basophils # (auto) 0.07 K/uL (0-0.2); Basophils % (auto) 1.6 %; Eosinophils # (auto) 0.11 K/uL (0-0.5); Eosinophils % (auto) 2.6 %; Hematocrit (blood only) 41.2 % (37-47); Hemoglobin 13.3 g/dL (12.0-16.0); Lymphocytes # (auto) 0.82 K/uL (1.2-3.4); Lymphocytes % (auto) 19.2 %; Mean Corpuscular Hemoglobin 35.1 pg (25-34); Mean Corpuscular Hgb Conc 32.3 g/dL (32-36); Mean Corpuscular Volume 108.7 fL (80-100); Mean Platelet Volume 10.3 fL (7.4-10.4); Monocytes # (auto) 0.59 K/uL (0.11-0.59); Monocytes % (auto) 13.8 %; Neutrophils # (auto) 2.68 K/uL (1.4-6.5); Neutrophils % (auto) 62.8 %; Platelet Count 331 K/uL (130-400); RDW Coefficient of Variation 16.2 % (11.5-14.5); Red Blood Count 3.79 M/uL (4.2-5.4); White Blood Count 4.27 K/uL (4.8-10.8)
[2020-11-23 08:30] LABS: INR 2.8 (0.9-1.1); Prothrombin Time 26.6 Seconds (9.0-12.0)
[2020-11-23 08:37] LABS: Albumin Level 3.7 gm/dl (3.4-5.0); BUN Creatinine Ratio 17.7 (10-20); Calcium 9.6 mg/dl (8.5-10.1); Creatinine Clr Calc Pharmacy 49.8 ml/min; Est GFR (African American) 91.4 ml/min; Est GFR (Non-African American) 78.8 ml/min; Potassium 4.4 mmol/L (3.5-5.1)
[2020-11-23 08:40] LABS: Bilirubin,Total 0.8 mg/dl (0.2-1); Globulin 3.7 gm/dl (2.5-4.0); Total Protein 7.4 gm/dl (6.4-8.2)
--- NOTE | 2020-11-23 09:08 | Ultrasound Report ---
LEFT LOWER EXTREMITY VENOUS DOPPLER HISTORY: Left leg pain. History of DVT. COMPARISON STUDY: None. FINDINGS: There is normal compressibility, flow, and augmentation within the left lower extremity cedric p venous system. IMPRESSION: No DVT within the left lower extremity. ACT 112: Negative or not required by law. Electronically signed by: Sedrick Rodriguez M.D. 11/23/2020 9:07 AM
--- NOTE | 2020-11-23 09:15 | Ultrasound Report ---
ULTRASOUND LEFT LOWER EXTREMITY ARTERIAL CLINICAL HISTORY: Left calf pain. COMPARISON STUDY: CT angiogram of the left lower extremity dated 06/15/2020. TECHNIQUE: Real-time, grayscale and color Doppler sonography of the arteries of the left lower extrem ity is performed from the inguinal crease to the foot. FINDINGS: Advanced atherosclerotic plaque and irregularity is seen throughout the arteries of the lef t lower extremity. The left common femoral artery is patent with triphasic waveforms and velocities m easuring up to 74 cm/s. The profunda femoris artery is patent with velocities measured 86 cm/s. Monop hasic flow is seen throughout the remaining arteries of the left lower extremity. Velocities in the p roximal superficial femoral artery measure up to 155 cm/s and velocities in the midportion of the lef t superficial femoral artery measure up to 165 cm/s. There is blunted arterial upstroke in the distal superficial femoral artery as well as the calf arteries. Elevated velocities in the popliteal artery measure up to 241 cm/s. The left posterior tibial artery appears occluded. The anterior tibial and p eroneal arteries appear patent with velocities measuring up to 66 cm/s. The dorsalis pedis artery is patent with velocities measuring up to 30 cm/s. IMPRESSION: 1. Advanced atherosclerotic change is noted throughout the arteries of the left upper extremity. 2. There are focally elevated velocities within the popliteal artery suggesting high grade stenosis. 3. The posterior tibial artery appears occluded. This is new from the 06/15/2020 CT angiogram. Dictated: 11/23/2020 9:04 AM Transcribed: 11/23/2020 9:12 AM Claudette [id number] [facility] Electronically signed by: Jordi Parrish M.D. 11/23/2020 9:14 AM
[2020-11-23] MEDS ORDERED: MoRPHine SULFATE 2 MG/ML CARP IV PRN (10:39)
[2020-11-23] MEDS ORDERED: LORATADINE 10 MG TAB PO PRN (10:55)
[2020-11-23] MEDS ORDERED: FUROSEMIDE 20 MG TAB PO PRN (10:55)
[2020-11-23] MEDS ORDERED: NON-FORMULARY MEDICATION (Cyclosporine [Restasis] 0.05 % Dropperette) OPB SCH (11:00)
--- NOTE | 2020-11-23 11:12 | History & Physical Report ---
Date of Service November 23, 2020 Assessment & Plan (1) Ischemia of left lower extremity: Pt with acute onset LLE sx of calf claudication and lateral ankle/foot numbness, and significant PAD on US. Pt does not have rest pain at this time, but will need to be watched for development of further sx. Pt discussed at length with Dr Duncan. Recommend pt be admitted and undergo LLE angio/thrombectomy/revascularization procedure in [place] tomorrow. Pt is agreeable. Start heparin drip and hold warfarin. Patient was seen, examined, and chart reviewed. Agree with exam and treatment plan of the Vascular PA. 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 Pt states these sx are not as severe as the last time. States as of last week, she was able to walk 100 yards without pain, but now is only able to walk about 10 steps. Became concerned and came to [facility] for eval. Denies discoloration or rest pain or inability to bear weight or move toes. Denies BECK, fever, chest pain, SOB, abd pain, N/V, any problems with R leg, ulcerations, other complaints. LLE arterial US demonstrates significant PAD with monophasic pop flow and post tib occlusion. Allergies Allergy/AdvReac Type Severity Reaction Status Date / Time Penicillins Allergy Severe THROAT Verified 11/23/20 07:35 SWELLS, PASSES OUT aspirin Allergy Intermediate WELTS Verified 11/23/20 07:35 AROUND EYES [place] And Derivatives Allergy Mild Runny/stuffy Verified 11/23/20 07:35 nose mayonnaise Allergy Verified 11/23/20 07:35 chicken derived AdvReac Intermediate DIARRHEA Verified 11/23/20 07:35 chocolate flavor AdvReac Intermediate DIARRHEA Verified 11/23/20 07:35 lactose AdvReac Intermediate GI upset Verified 11/23/20 07:35 grass pollen-perennial rye, AdvReac Mild RUNNY Verified 11/23/20 07:35 standar NOSE/SINUS ISSUES mushroom AdvReac Mild GI SYMPTOMS Verified 11/23/20 07:35 pollen extracts AdvReac Mild RUNNY Verified 11/23/20 07:35 NOSE/SINUS ISSUES soy AdvReac Mild GI SYMPTOMS Verified 11/11/20 09:52 Evmhfhp-Oam-Fee Reductase AdvReac Mild DID NOT Verified 11/11/20 09:52 Inhibitor WORK lorazepam AdvReac Hallucinati Verified 11/11/20 09:52 ng Home Medications Medication Instructions Recorded Confirmed Type walker #1 ea 03/11/19 11/11/20 Rx calcium carb,cit ER 600 mg-vit D3 1 tab PO BID tab 07/05/20 11/23/20 History 12.5 mcg (500 unit) tablet,ext.rel cholecalciferol (vitamin D3) 50 2,000 unit PO DAILY@1200 cap 07/05/20 11/23/20 History mcg (2,000 unit) capsule cyclosporine 0.05 % eye drops in a 1 drp OPB BID ea 07/05/20 11/23/20 History dropperette mercaptopurine 50 mg tablet 75 mg PO QDD tab 07/05/20 11/23/20 History multivitamin with minerals-folic 1 tab PO DAILY@1200 tab 07/05/20 11/23/20 History acid 200 mcg chewable tablet metoprolol succinate 100 mg 150 mg PO DAILY@1200 08/17/20 11/23/20 History tablet,extended release 24 hr warfarin 3 mg tablet See Rx Instructions PO UD #135 tab 09/30/20 11/23/20 Rx clonidine HCl 0.1 mg PO BID 11/23/20 11/23/20 History clopidogrel [Plavix] 75 mg PO DAILY@1200 11/23/20 11/23/20 History cyclosporine [Restasis] 1 drp OPB Q12H 11/23/20 11/23/20 History denosumab [Prolia] 60 mg SUBCUT Q6M 11/23/20 11/23/20 History diltiazem HCl [Cardizem CD] 360 mg PO DAILY@1200 11/23/20 11/23/20 History furosemide [Lasix] 20 mg PO DAILY PRN 11/23/20 11/23/20 History loratadine [Claritin] 10 mg PO DAILY PRN 11/23/20 11/23/20 History pantoprazole [Protonix] 40 mg PO BIDM 11/23/20 11/23/20 History rosuvastatin 5 mg PO QDD 11/23/20 11/23/20 History sulfasalazine 1,000 mg PO BID 11/23/20 11/23/20 History tamoxifen 20 mg PO QAM 11/23/20 11/23/20 History tramadol [Ultram] 50 mg PO Q8H PRN 11/23/20 11/23/20 History trazodone 25 mg PO HS 11/23/20 11/23/20 History vitamins A,C,D-apwc-zvsmcb 2 tab PO BID 11/23/20 11/23/20 History [PreserVision AREDS] Past Med/Surg History Medical History Aortic stenosis Breast cancer (08/27/15) "Abnormal right breast mammogram 08/01/2015 Status post biopsy 08/27/2015 10:00 lesion invasive ductal carcinoma, grade 1 Estrogen receptor positive, progesterone receptor negative, HER-2/quique negative 11:00 lesion invasive lobular carcinoma, grade 1 Estrogen receptor positive, progesterone receptor positive, HER-2/quique negative Status post lumpectomy and sentinel lymph node biopsy 09/27/2015 Lobular and ductal carcinoma Stage pT1b pN1a M0 Radiation therapy stopped 01/26/2016 received 3780 cGy. Treatments stopped early due to admission for compression fracture and inability to tolerate being in the treatment position" On 02/21/16 15:06 Frances Hogan wrote "Abnormal right breast mammogram 08/01/2015 Status post biopsy 08/27/2015 10:00 lesion invasive ductal carcinoma, grade 1 Estrogen receptor positive, progesterone receptor negative, HER-2/quique negative 11:00 lesion invasive lobular carcinoma, grade 1 Estrogen receptor positive, progesterone receptor positive, HER-2/quique negative Status post lumpectomy and sentinel lymph node biopsy 09/27/2015 Lobular and ductal carcinoma Stage pT1b pN1a M0" On 02/21/16 15:06 Frances Hogan wrote "Abnormal right breast mammogram 08/01/2015 Status post biopsy 08/27/2015 10:00 lesion invasive ductal carcinoma, grade 1 Estrogen receptor positive, progesterone receptor negative, HER-2/quique negative 11:00 lesion invasive lobular carcinoma, grade 1 Estrogen receptor positive, progesterone receptor positive, HER-2/quique negative Status post lumpectomy and sentinel lymph node biopsy 09/27/2015 Lobular and ductal carcinoma Stage pT1b pN1a M0 Status post radiation therapy, treatment stopped 01/26/2016 received 3780 cGy " On 10/14/15 13:28 Frances Hogan wrote "Abnormal right breast mammogram 08/01/2015 Status post biopsy 08/27/2015 10:00 lesion invasive ductal carcinoma, grade 1 Estrogen receptor positive, progesterone receptor negative, HER-2/quique negative 11:00 lesion invasive lobular carcinoma, grade 1 Estrogen receptor positive, progesterone receptor positive, HER-2/quique negative Status post lumpectomy and sentinel lymph node biopsy 09/27/2015 Lobular and ductal carcinoma Stage pT1b pN1a M0 " Breast cancer RT BREAST (SX AND RADIATION) CHF (congestive heart failure) Compression fracture of lumbar vertebra Facial basal cell cancer NOSE GERD (gastroesophageal reflux disease) HLD (hyperlipidemia) HTN (hypertension) Hypertensive urgency Incarcerated paraesophageal hernia Lower extremity pain, left On anticoagulant therapy warfarin/plavix daily Osteoarthritis 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" (FOLLOWED BY [facility]) Paraesophageal hiatal hernia SSS (sick sinus syndrome) (02/18/14) Stroke OVER 20 YEARS AGO (NO CURRENT PROBLEMS) Ulcerative colitis Ulcerative colitis "REMISSION" Unintentional weight loss per pt reason for colonoscopy Surgical History H/O total hysterectomy UTERINE MASS REMOVED (BENIGN) History of appendectomy History of cataract surgery History of colonoscopy History of esophagogastroduodenoscopy (EGD) recently had 03/2019 @ [facility] [place] per pt they found 2 ulcers-1 in esophagus and 1 in stomach History of herniorrhaphy History of kyphoplasty History of tonsillectomy and adenoidectomy History of tooth extraction Hx of lumpectomy RT Family History Other Benign essential HTN Coronary heart disease PVD (peripheral vascular disease) Stroke Denies family history of Ovarian cancer Prostate cancer Breast cancer Lung cancer Colorectal cancer Social History (Reviewed 06/29/21 @ 11:09 by OXANA Boucher Smoking Status: Never smoker Second Hand Exposure: No (older brothers all smoked); Hx Alcohol Use: Yes Alcohol type: wine Alcohol Intake Frequency: Monthly or Less Hx Substance Use: No Preferred Language: Japanese Communication Ability: Effective Visual Impairment: Limited Hearing Ability: Normal Correspondence Representative Required: No Beliefs That Will Affect Care: None marital status: Single Current Living Situation: Alone Current Living Situation Comment: [facility] current occupational status: retired How many Children do You have: 0 Other Information That Helps Us Care for You: No Feels Safe at Home: Yes Safety Concerns: Feels Safe At This Time Childhood Exposure to Second-Hand Smoke: No caffeine: Yes (drinks soda ) Dental Care, Regularly: Yes Physical Activity Frequency: Daily Physical Activity Frequency Comment: walks daily Seatbelt Use: always Sunscreen Use: No Assistive Devices: Denture - Upper, Denture - Lower, Glasses and Walker Review of Systems All systems reviewed & are unremarkable except as noted in HPI & below Physical Exam Constitutional: WD/WN, vitals as above healthy appearing, cooperative and comfortable; not in distress Eyes: PERRL, conjunctivae normal, anicteric sclerae ENMT: Ears: no hearing impairment Neck: trachea midline Respiratory: normal respiratory effort, lungs clear to auscultation Auscultation: + diminished lung sounds Cardiovascular: Rate/Rhythm: + irregularly irregular Vessels: femoral pulses present, posterior tibial pulses present (nonpalpable BLE, +doppler RLE only ) and dorsalis pedis pulses present (nonpalpable BLE, +doppler RLE only. + LLE ant tib signal to ankle); + abnormal peripheral pulses Extremities: + abnormal capillary refill (RLE normal, LLE 6 seconds.) L toes cooler than R, but still some warmth, no cyanosis. Gastrointestinal (Abdomen): normal bowel sounds, soft, nontender, no hepatosplenomegaly Musculoskeletal: no cyanosis or clubbing, extremities motor strength 5/5 Skin: no rashes, warm and dry Neurologic: moves all extremities and awake; no focal motor deficits and not confused Psychiatric: A+Ox3, euthymic affect Results & Data ([facility]) Vital Signs (Past 12 Hours) Vital Signs Temp Pulse Resp BP Pulse Ox 11/23/20 09:31 74 16 144/75 H 11/23/20 09:30 89 18 11/23/20 09:01 77 16 11/23/20 09:00 78 16 169/88 H 11/23/20 08:56 83 14 11/23/20 08:55 89 16 156/108 H 11/23/20 07:53 95 11/23/20 07:30 77 13 170/88 H 11/23/20 07:15 37 C 82 18 157/99 H 97 Code Status & VTE Plan VTE Prophylaxis Plan VTE Prophylaxis will be ordered: Yes
[2020-11-23] MEDS ORDERED: Heparin IV Adult Wt-Based Standard *NO* Bolus Protocol IV STA (11:30)
[2020-11-23] MEDS: HEPARIN SODIUM/DEXTROSE 25,000 UNITS/500 ML BAG IV SCH (12:02)
[2020-11-23] MEDS: dilTIAZem HCL 180 MG CAPCR PO SCH (14:25)
[2020-11-23] MEDS: METOPROLOL SUCC 50MG EXT REL TAB PO SCH (14:25)
[2020-11-23] MEDS: CHOLECALCIFEROL 1,000 UNITS 25 MCG TAB PO SCH (14:38)
[2020-11-23] MEDS: CEROVITE ADV FORMULA TAB PO SCH (14:38)
[2020-11-23] MEDS: CLOPIDOGREL BISULFATE 75 MG TAB PO SCH ×2 (14:38→14:40)
[2020-11-23] MEDS: CALCIUM 600MG + VIT D 400 IU TAB PO SCH (17:31)
[2020-11-23] MEDS: PANTOprazole 40 MG TAB PO SCH (17:31)
[2020-11-23] MEDS: cloNIDine HCL 0.1 MG TAB PO SCH (17:31)
[2020-11-23] MEDS: ROSUVASTATIN CALCIUM 5 MG TAB PO SCH (17:32)
[2020-11-23] MEDS: MERCAPTOPURINE 50 MG TAB PO SCH (18:34)
[2020-11-23 19:03] LABS: Partial Thromboplastin Ratio 5.2
[2020-11-23 19:18] LABS: Partial Thromboplastin Time 136.4 Seconds (21.0-31.0)
[2020-11-23] MEDS ORDERED: NON-FORMULARY MEDICATION (Vitamins A,C,E-Zinc-Copper [Preservision Areds] 7,160 unit- 113 PO SCH (21:00)
[2020-11-23] MEDS: traZODone HCL 50 MG TAB PO SCH (21:02)
[2020-11-23] MEDS: sulfaSALAzine 500 MG TABLET PO SCH (21:02)
[2020-11-23] MEDS: ACETAMINOPHEN 325 MG TAB PO PRN (23:10)
[2020-11-24 04:38] LABS: INR 2.5 (0.9-1.1); Partial Thromboplastin Ratio 3.1; Prothrombin Time 23.2 Seconds (9.0-12.0)
[2020-11-24 04:46] LABS: Partial Thromboplastin Time 81.3 Seconds (21.0-31.0)
[2020-11-24] MEDS ORDERED: CLINDAMYCIN 600 MG/54 ML BAG IV SCH (06:00)
--- NOTE | 2020-11-24 07:28 | History & Physical Bridge Note ---
Date of Service November 24, 2020 History & Physical Bridge Note Patient for a left lower extremity arteriogram with possible intervention. I have discussed the risks options and benefits of the procedure with the patient. The patient understands the risks options and benefits and agrees to the procedure. I have examined the patient, reviewed the History & Physical and in the interval since the performance of the History & Physical I have noted the following changes of clinical significance: no changes noted
[2020-11-24] MEDS: PANTOprazole 40 MG TAB PO SCH ×2 (08:21→17:49)
[2020-11-24] MEDS: dilTIAZem HCL 180 MG CAPCR PO SCH (08:57)
[2020-11-24] MEDS: METOPROLOL SUCC 50MG EXT REL TAB PO SCH (08:57)
[2020-11-24 12:07] LABS: Partial Thromboplastin Ratio 3.4
[2020-11-24 12:15] LABS: Partial Thromboplastin Time 89.1 Seconds (21.0-31.0)
[2020-11-24] MEDS: CALCIUM 600MG + VIT D 400 IU TAB PO SCH ×2 (12:39→17:50)
[2020-11-24] MEDS: CEROVITE ADV FORMULA TAB PO SCH (12:39)
[2020-11-24] MEDS: CLOPIDOGREL BISULFATE 75 MG TAB PO SCH (12:39)
[2020-11-24] MEDS: CHOLECALCIFEROL 1,000 UNITS 25 MCG TAB PO SCH (12:39)
[2020-11-24] MEDS: sulfaSALAzine 500 MG TABLET PO SCH ×2 (13:17→20:24)
[2020-11-24] MEDS: TAMOXIFEN CITRATE 10 MG TABLET PO SCH (13:17)
[2020-11-24] MEDS: cloNIDine HCL 0.1 MG TAB PO SCH ×2 (13:17→17:49)
[2020-11-24] MEDS ORDERED: LIDOCAINE 1% LOCAL 20 ML VIAL ONE (14:16)
--- NOTE | 2020-11-24 14:29 | Anesthesiology Consultation ---
Date of Service November 24, 2020 Assessment & Plan (1) Encounter for pre-operative examination: Chart Review Chart Review: Acceptable Risk for Surgery and Patient NOT seen in Pre Admission Testing Consults Requested none ASA ASA4 Proposed Anesthesia Anesthesia Type: MAC Risk / Benefits Reviewed With: PT / POA / Parent / Guardian, Accepts Plan and Informed Consent Obtained History Surgery Operation Date: 11/24/20 14:00 Proposed Procedures p Left Lower Extremity Angioplasty Possible Intervention - Bubba Duncan MD Height/Weight Height: 5 ft 1 in Weight: 63.1 kg Allergies Allergy/AdvReac Type Severity Reaction Status Date / Time Penicillins Allergy Severe THROAT Verified 11/23/20 07:35 SWELLS, PASSES OUT aspirin Allergy Intermediate WELTS Verified 11/23/20 07:35 AROUND EYES [place] And Derivatives Allergy Mild Runny/stuffy Verified 11/23/20 07:35 nose mayonnaise Allergy Verified 11/23/20 07:35 chicken derived AdvReac Intermediate DIARRHEA Verified 11/23/20 07:35 chocolate flavor AdvReac Intermediate DIARRHEA Verified 11/23/20 07:35 lactose AdvReac Intermediate GI upset Verified 11/23/20 07:35 grass pollen-perennial rye, AdvReac Mild RUNNY Verified 11/23/20 07:35 standar NOSE/SINUS ISSUES mushroom AdvReac Mild GI SYMPTOMS Verified 11/23/20 07:35 pollen extracts AdvReac Mild RUNNY Verified 11/23/20 07:35 NOSE/SINUS ISSUES soy AdvReac Mild GI SYMPTOMS Verified 11/11/20 09:52 Lqahozk-Imm-Rru Reductase AdvReac Mild DID NOT Verified 11/11/20 09:52 Inhibitor WORK lorazepam AdvReac Hallucinati Verified 11/11/20 09:52 ng Medications Home Medications Medication Instructions Recorded Confirmed Last Taken walker #1 ea 03/11/19 11/11/20 Unknown calcium carb,cit ER 600 mg-vit D3 1 tab PO BID tab 07/05/20 11/23/20 Unknown 12.5 mcg (500 unit) tablet,ext.rel cholecalciferol (vitamin D3) 50 2,000 unit PO DAILY@1200 cap 07/05/20 11/23/20 Unknown mcg (2,000 unit) capsule cyclosporine 0.05 % eye drops in a 1 drp OPB BID ea 07/05/20 11/23/20 Unknown dropperette mercaptopurine 50 mg tablet 75 mg PO QDD tab 07/05/20 11/23/20 Unknown multivitamin with minerals-folic 1 tab PO DAILY@1200 tab 07/05/20 11/23/20 Unknown acid 200 mcg chewable tablet metoprolol succinate 100 mg 150 mg PO DAILY@1200 08/17/20 11/23/20 Unknown tablet,extended release 24 hr warfarin 3 mg tablet See Rx Instructions PO UD #135 tab 09/30/20 11/23/20 Unknown clonidine HCl 0.1 mg PO BID 11/23/20 11/23/20 Unknown clopidogrel [Plavix] 75 mg PO DAILY@1200 11/23/20 11/23/20 Unknown cyclosporine [Restasis] 1 drp OPB Q12H 11/23/20 11/23/20 Unknown denosumab [Prolia] 60 mg SUBCUT Q6M 11/23/20 11/23/20 Unknown diltiazem HCl [Cardizem CD] 360 mg PO DAILY@1200 11/23/20 11/23/20 Unknown furosemide [Lasix] 20 mg PO DAILY PRN 11/23/20 11/23/20 Unknown loratadine [Claritin] 10 mg PO DAILY PRN 11/23/20 11/23/20 Unknown pantoprazole [Protonix] 40 mg PO BIDM 11/23/20 11/23/20 Unknown rosuvastatin 5 mg PO QDD 11/23/20 11/23/20 Unknown sulfasalazine 1,000 mg PO BID 11/23/20 11/23/20 Unknown tamoxifen 20 mg PO QAM 11/23/20 11/23/20 Unknown tramadol [Ultram] 50 mg PO Q8H PRN 11/23/20 11/23/20 Unknown trazodone 25 mg PO HS 11/23/20 11/23/20 Unknown vitamins A,C,U-kppf-lldtdi 2 tab PO BID 11/23/20 11/23/20 Unknown [PreserVision AREDS] Active Medications Generic Name Dose Route Start Last Admin Trade Name Freq PRN Reason Stop Dose Admin Acetaminophen 650 mg 11/23/20 10:39 11/23/20 23:10 Acetaminophen 325 Mg Tab PO 12/23/20 10:44 650 mg Q6H PRN Administration Mild Pain (scale 1,2,3) Clonidine HCl 0.1 mg 11/23/20 18:00 11/24/20 13:17 Clonidine Hcl 0.1 Mg Tab PO 12/23/20 17:59 Not Given BID@1200,1800 COUNT INCLUDES THE [facility] Clopidogrel Bisulfate 75 mg 11/23/20 12:00 11/24/20 12:39 Clopidogrel Bisulfate 75 Mg Tab PO 12/23/20 11:59 Not Given DAILY@1200 COUNT INCLUDES THE [facility] Diltiazem HCl 360 mg 11/23/20 12:00 11/24/20 08:57 Diltiazem Hcl 180 Mg Capcr PO 12/23/20 11:59 360 mg DAILY@1200 FRED Administration Heparin Sodium/Dextrose 25,000 units in 500 mls @ 12 mls/hr 11/23/20 10:45 11/24/20 13:14 Heparin Sodium/Dextrose IV 12/23/20 10:44 600 units/hr .Q24H FRED 12 mls/hr Titration Protocol 600 UNITS/HR Mercaptopurine 75 mg 11/23/20 16:30 11/23/20 18:34 Mercaptopurine 50 Mg Tab PO 12/23/20 16:29 75 mg QDD FRED Administration Metoprolol Succinate 150 mg 11/23/20 12:00 11/24/20 08:57 Metoprolol Succ 50mg Ext Rel Tab PO 12/23/20 11:59 150 mg DAILY@1200 COUNT INCLUDES THE [facility] Administration Miscellaneous 1 ea 11/23/20 16:00 11/24/20 08:21 Cyclosporine [Restasis] 0.05 % - Order Awaiting Action N/A 12/23/20 15:59 Not Given QS COUNT INCLUDES THE [facility] Multivitamins/Minerals 1 tab 11/23/20 18:00 11/24/20 12:39 Calcium 600mg + Vit D 400 Iu Tab PO 12/23/20 17:59 Not Given BID@1200,1800 COUNT INCLUDES THE [facility] Multivitamins/Minerals 1 tab 11/23/20 12:00 11/24/20 12:39 Cerovite Adv Formula Tab PO 12/23/20 11:59 Not Given DAILY@1200 COUNT INCLUDES THE [facility] Pantoprazole Sodium 40 mg 11/23/20 18:00 11/24/20 08:21 Pantoprazole 40 Mg Tab PO 12/23/20 17:59 Not Given BID@0800,1800 COUNT INCLUDES THE [facility] Rosuvastatin Calcium 5 mg 11/23/20 18:00 11/23/20 17:32 Rosuvastatin Calcium 5 Mg Tab PO 12/23/20 17:59 5 mg DAILY@1800 FRED Administration Sulfasalazine 1,000 mg 11/23/20 21:00 11/24/20 13:17 Sulfasalazine 500 Mg Tablet PO 12/23/20 20:59 Not Given BID FRED Tamoxifen Citrate 20 mg 11/24/20 09:00 11/24/20 13:17 Tamoxifen Citrate 10 Mg Tablet PO 12/24/20 08:59 Not Given QAM FRED Trazodone HCl 25 mg 11/23/20 21:00 11/23/20 21:02 Trazodone Hcl 50 Mg Tab PO 12/23/20 20:59 25 mg HS FRED Administration Vitamin D 2,000 units 11/23/20 12:00 11/24/20 12:39 Cholecalciferol 1,000 Units 25 Mcg Tab PO 12/23/20 11:59 Not Given DAILY@1200 FRED NPO Date Last Intake of Fluids: 11/23/20 Time Last Intake of Fluids: 23:00 Last Intake of Fluids Comment: 3 sips with heart meds Date Last Intake of Solids: 11/23/20 Time Last Intake of Solids: 23:00 Past Medical History Medical History Aortic stenosis Breast cancer (08/27/15) "Abnormal right breast mammogram 08/01/2015 Status post biopsy 08/27/2015 10:00 lesion invasive ductal carcinoma, grade 1 Estrogen receptor positive, progesterone receptor negative, HER-2/quique negative 11:00 lesion invasive lobular carcinoma, grade 1 Estrogen receptor positive, progesterone receptor positive, HER-2/quique negative Status post lumpectomy and sentinel lymph node biopsy 09/27/2015 Lobular and ductal carcinoma Stage pT1b pN1a M0 Radiation therapy stopped 01/26/2016 received 3780 cGy. Treatments stopped early due to admission for compression fracture and inability to tolerate being in the treatment position" On 02/21/16 15:06 Frances Hogan wrote "Abnormal right breast mammogram 08/01/2015 Status post biopsy 08/27/2015 10:00 lesion invasive ductal carcinoma, grade 1 Estrogen receptor positive, progesterone receptor negative, HER-2/quique negative 11:00 lesion invasive lobular carcinoma, grade 1 Estrogen receptor positive, progesterone receptor positive, HER-2/quique negative Status post lumpectomy and sentinel lymph node biopsy 09/27/2015 Lobular and ductal carcinoma Stage pT1b pN1a M0" On 02/21/16 15:06 Frances Hogan wrote "Abnormal right breast mammogram 08/01/2015 Status post biopsy 08/27/2015 10:00 lesion invasive ductal carcinoma, grade 1 Estrogen receptor positive, progesterone receptor negative, HER-2/quique negative 11:00 lesion invasive lobular carcinoma, grade 1 Estrogen receptor positive, progesterone receptor positive, HER-2/qiuque negative Status post lumpectomy and sentinel lymph node biopsy 09/27/2015 Lobular and ductal carcinoma Stage pT1b pN1a M0 Status post radiation therapy, treatment stopped 01/26/2016 received 3780 cGy " On 10/14/15 13:28 Frances Hogan wrote "Abnormal right breast mammogram 08/01/2015 Status post biopsy 08/27/2015 10:00 lesion invasive ductal carcinoma, grade 1 Estrogen receptor positive, progesterone receptor negative, HER-2/quique negative 11:00 lesion invasive lobular carcinoma, grade 1 Estrogen receptor positive, progesterone receptor positive, HER-2/quique negative Status post lumpectomy and sentinel lymph node biopsy 09/27/2015 Lobular and ductal carcinoma Stage pT1b pN1a M0 " Breast cancer RT BREAST (SX AND RADIATION) CHF (congestive heart failure) Compression fracture of lumbar vertebra Facial basal cell cancer NOSE GERD (gastroesophageal reflux disease) HLD (hyperlipidemia) HTN (hypertension) Hypertensive urgency Incarcerated paraesophageal hernia Lower extremity pain, left On anticoagulant therapy warfarin/plavix daily Osteoarthritis 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" (FOLLOWED BY [facility]) Paraesophageal hiatal hernia SSS (sick sinus syndrome) (02/18/14) Stroke OVER 20 YEARS AGO (NO CURRENT PROBLEMS) Ulcerative colitis Ulcerative colitis "REMISSION" Unintentional weight loss per pt reason for colonoscopy Exercise / Class Metabolic Activity II 4-5 Yardwork/Stairs/Walk up hill Past Family History Family History Other Benign essential HTN Coronary heart disease PVD (peripheral vascular disease) Stroke Denies family history of Ovarian cancer Prostate cancer Breast cancer Lung cancer Colorectal cancer Past Surgical History Surgical History H/O total hysterectomy UTERINE MASS REMOVED (BENIGN) History of appendectomy History of cataract surgery History of colonoscopy History of esophagogastroduodenoscopy (EGD) [place] [facility] [place] they found 2 ulcers-1 in esophagus and 1 in stomach History of herniorrhaphy History of kyphoplasty History of tonsillectomy and adenoidectomy History of tooth extraction Hx of lumpectomy RT Past Anesthesia History No Hx of Anesthesia Complications and No Family Hx of Anesthesia Complications History of PONV No Hx of PONV and No Hx of Motion Sickness Social History Smoking Status: Never smoker Hx Alcohol Use: Yes Alcohol type: wine alcohol intake frequency: holidays/special occasions only Hx Substance Use: No substance use type: does not use Physical Exam Vital Signs Last Vital Signs Temp 36.7 C 11/24/20 13:30 Pulse 88 11/24/20 13:30 Resp 20 11/24/20 13:30 BP 174/86 H 11/24/20 13:30 Pulse Ox 98 11/24/20 13:30 ENMT Mouth: no dentition abnormality Thyromental Distance: > or= 3.5 Finger Breadths Mallampati Class: II Neck normal visual inspection Respiratory normal respiratory effort Auscultation: lungs clear to auscultation bilaterally Cardiovascular Rate/Rhythm: regular rate and regular rhythm Extremities: + pedal edema (trace) Psychiatric Orientation: alert Testing Laboratory Results 11/23/20 08:04 11/23/20 08:04 PT 23.2 Seconds (9.0-12.0) H 11/24/20 03:42 INR 2.5 (0.9-1.1) H 11/24/20 03:42 APTT 89.1 Seconds (21.0-31.0) H* 11/24/20 11:30
[2020-11-24] MEDS ORDERED: LACTATED RINGER'S 1,000 ML IV SCH (14:30)
[2020-11-24] MEDS ORDERED: ePHEDrine sulfate 50 MG/ML AMP IV PRN (14:31)
[2020-11-24] MEDS ORDERED: ATROPINE SULFATE 0.1 MG/ML 10ML SYR IV PRN (14:31)
[2020-11-24] MEDS ORDERED: fentaNYL citrate 100 MCG/2 ML VIAL IV PRN (14:31)
[2020-11-24] MEDS ORDERED: ONDANSETRON INJ 2 MG/ML 2 ML VIAL IV PRN (14:31)
[2020-11-24] MEDS ORDERED: fentaNYL citrate 100 MCG/2 ML VIAL ONE (14:34)
[2020-11-24] MEDS ORDERED: PROPOFOL IV EMULSION 10 MG/ML 20 ML VIAL IV ONE ×2 (15:03→16:06)
[2020-11-24] MEDS ORDERED: LIDOCAINE 2% 2 ML VIAL/AMP(20MG/ML) INFIL ONE (15:03)
[2020-11-24] MEDS ORDERED: HEPARIN SOD (PORCINE) 1000 UNIT/ML ONE (15:30)
--- NOTE | 2020-11-24 16:16 | Post Operative Brief Note ---
Immediate Post Op Note v1 Date of Surgery November 24, 2020 Pre & Post Diagnosis Operation Date: 11/24/20 14:00 Pre-Op Diagnosis: Ischemia of left lower extremity Post-Op Diagnosis: Ischemia of left lower extremity I identified the patient and participated in the time-out.: Yes Procedure Operation Date: 11/24/20 14:00 Actual Procedures p Left Lower Extremity Angiogram, Percutaneous Transluminal Angioplasty/Stenting of Left Superficial Femoral Artery and Left Popliteal Arteries, Percutaneous Transluminal Angioplasty of Left Anterior Tibeal Artery, Mechancial Closure of Right Femoral Artery, (Right) - Bubba Duncan MD Surgeon Bubba Duncan MD Human Resources Recruiter none Estimated Blood Loss 5 Findings Consistent with Post-Op Diagnosis Anesthesia Type MAC Complications none Disposition Accompanied Patient To Recovery: No Disposition: Recovery Room
--- NOTE | 2020-11-24 16:17 | Procedure Note ---
Angiogram Post Procedure Fluoroscopy Time (minutes): 5.54 Radiation (mGy): 33.16 Contrast: 100 Post Operative Report Pre & Post Diagnosis Operation Date: 11/24/20 14:00 Pre-Op Diagnosis: Ischemia of left lower extremity Post-Op Diagnosis: Ischemia of left lower extremity I identified the patient and participated in the time-out.: Yes Procedure Operation Date: 11/24/20 14:00 Actual Procedures p Left Lower Extremity Angiogram, Percutaneous Transluminal Angioplasty/Stenting of Left Superficial Femoral Artery and Left Popliteal Arteries, Percutaneous Transluminal Angioplasty of Left Anterior Tibeal Artery, Mechancial Closure of Right Femoral Artery, (Right) - Bubba Duncan MD Surgeon Bubba Duncan MD Offset Assistant Press Operator none Estimated Blood Loss 5 Findings Consistent with Post-Op Diagnosis Specimens none Anesthesia Type MAC Indications This is an 85 yo female with ischemia of her left lower extremity. Arteriogrpahy with intervention was recommended. I have discussed the risks options and benefits of the procedure with the patient. The patient understands the risks options and benefits and agrees to the procedure. Description of Procedure The patient was taking to the operating room and placed in the supine position. Her groins were prepped and draped in a sterile manner. A timeout was performed and the patient identified. Local anesthesia was then administered to the right groin and a percutaneous puncture was made of he right common femoral artery. A 5 turkmen sheath was inserted. An 035 glidewire was passed into the distal aorta . Using a rim catheter, the left lower extremity was cannulated from the right side. Arteriography was done which showed multiple areas of narrowing in the left superficial femoral artery, proximal popliteal and a stenosis in the proxiaml anterior tibial artery. The stent in the SFA appeared to be patent. It was decided to CAREER AND TECHNOLOGY EDUCATION TEACHER the anterior tibial artery and restent the SFA and proximal poplteal artery. An 035 stiffened wire was inserted and the rim and 5 turkmen sheath removed and replaced by a 6Fr destination sheath. The wire was passed through all the lesions and a quickcross catheter inserted. A hand injection was done confirming the catheter to be true lumen. The stiffened wire was replaced and the quick cross removed. A 4mm balloon was inserted and the proximal anterior artery was dilated with good results. We then inserted a 5x60 stent to the distal lesion and deployed it. A 6x200 was then deployed proximally to cover all the lesions. These were then ballooned with a 5mm balloon. Good results were seen with good runoff throught the anterior tibial artery. The destination sheath was then pulled and the puncture site closed with the Star closure device. Good hemostasis was noted. Sterile dressing was applied. The patient left the operation room in satisfactory condition and tolerated the procedure well. All needle and sponge counts were correct at the end of the procedure. I attest to the content of the Intraoperative Record and any orders documented therein. Any exceptions are noted below.
[2020-11-24] MEDS ORDERED: VISIPAQUE IV PRN (16:32)
--- NOTE | 2020-11-24 16:44 | Anesthesiology Progress Note ---
Date of Service November 24, 2020 Anesthesia Post Procedure Vital Signs Vital Signs: Temp Pulse Resp BP Pulse Ox 11/24/20 13:30 36.7 C 88 20 174/86 H 98 11/24/20 07:32 36.9 C 96 H 16 150/85 H 92 11/23/20 22:40 36.6 C 55 L 16 155/77 H 94 Pain Intensity Left Leg: Pain Intensity: 6 Transfer of Care Handoff Completed per policy Notes Mental Status: alert / awake / arousable Patient Amnestic to Procedure: Yes Nausea / Vomiting: adequately controlled Pain: adequately controlled Airway Patency, RR, SpO2: stable & adequate BP & HR: stable & adequate Hydration State: stable & adequate Anesthetic Complications: no major complications apparent
[2020-11-24] MEDS ORDERED: SODIUM CHLORIDE 0.9% 1000ML 1,000 ML IV SCH (17:31)
[2020-11-24] MEDS: HEPARIN SODIUM/DEXTROSE 25,000 UNITS/500 ML BAG IV SCH (17:34)
[2020-11-24] MEDS ORDERED: CLOPIDOGREL BISULFATE 300 MG TAB PO ONE (17:40)
[2020-11-24] MEDS: MERCAPTOPURINE 50 MG TAB PO SCH (17:49)
[2020-11-24] MEDS: ROSUVASTATIN CALCIUM 5 MG TAB PO SCH (17:50)
[2020-11-24] MEDS: ACETAMINOPHEN 325 MG TAB PO PRN (17:54)
[2020-11-24] MEDS: traZODone HCL 50 MG TAB PO SCH (20:24)
[2020-11-24] MEDS: oxyCODONE/ACETAMINOPHEN 5mg/325mg TAB PO PRN (20:26)
[2020-11-25 06:03] LABS: Basophils # (auto) 0.02 K/uL (0-0.2); Basophils % (auto) 0.3 %; Eosinophils # (auto) 0.04 K/uL (0-0.5); Eosinophils % (auto) 0.6 %; Hematocrit (blood only) 34.5 % (37-47); Hemoglobin 11.3 g/dL (12.0-16.0); Immature Granulocytes # (auto) 0.01 K/uL (0.00-0.02); Immature Granulocytes % (auto) 0.1 %; Lymphocytes % (auto) 15.7 %; Mean Corpuscular Hemoglobin 34.2 pg (25-34); Mean Corpuscular Hgb Conc 32.8 g/dL (32-36); Mean Corpuscular Volume 104.5 fL (80-100); Mean Platelet Volume 10.3 fL (7.4-10.4); Monocytes # (auto) 1.35 K/uL (0.11-0.59); Monocytes % (auto) 19.3 %; Neutrophils # (auto) 4.49 K/uL (1.4-6.5); Platelet Count 295 K/uL (130-400); RDW Coefficient of Variation 15.7 % (11.5-14.5); RDW Standard Deviation 60.1 fL (36.4-46.3); White Blood Count 7.01 K/uL (4.8-10.8)
[2020-11-25 06:16] LABS: Partial Thromboplastin Time 27.3 Seconds (21.0-31.0)
[2020-11-25] MEDS: sulfaSALAzine 500 MG TABLET PO SCH ×2 (08:47→20:27)
[2020-11-25] MEDS: PANTOprazole 40 MG TAB PO SCH ×2 (08:48→18:13)
[2020-11-25] MEDS: TAMOXIFEN CITRATE 10 MG TABLET PO SCH (08:48)
[2020-11-25 11:42] VITALS: O2SAT 95
[2020-11-25] MEDS: dilTIAZem HCL 180 MG CAPCR PO SCH (12:01)
[2020-11-25] MEDS: CEROVITE ADV FORMULA TAB PO SCH (12:01)
[2020-11-25] MEDS: cloNIDine HCL 0.1 MG TAB PO SCH ×2 (12:01→18:13)
[2020-11-25] MEDS: CHOLECALCIFEROL 1,000 UNITS 25 MCG TAB PO SCH (12:02)
[2020-11-25] MEDS: METOPROLOL SUCC 50MG EXT REL TAB PO SCH (12:02)
[2020-11-25] MEDS: CLOPIDOGREL BISULFATE 75 MG TAB PO SCH (12:02)
[2020-11-25] MEDS: CALCIUM 600MG + VIT D 400 IU TAB PO SCH ×2 (12:02→18:13)
--- NOTE | 2020-11-25 16:20 | Surgery Progress Note ---
Date of Service November 25, 2020 Assessment & Plan (1) Ischemia of left lower extremity: This patient is day 1 after endovascular intervention of the left lower extremity for ischemic pain. She is doing well with total resolution of the pain. She has good flow to the foot at this point. We will discharge her today on her Coumadin and Plavix. We will see her in the office in 2 to 3 weeks for follow-up. Admission and Anticipated Discharge Date Admission Date: November 23, 2020 Subjective Patient without any pain in her left leg. She claims it feels much better and is resolved. Physical Exam Constitutional: well developed and well nourished On exam her left lower extremity is warm to touch. There is good Doppler signals at the DP. Capillary refill is normal in the left lower extremity. The right groin puncture site was without complication. Results & Data ([facility]) Vital Signs (Past 12 Hours) Vital Signs Temp Pulse Resp BP Pulse Ox 11/25/20 15:25 36.7 C 81 16 122/78 95 11/25/20 11:39 36.8 C 90 18 132/62 95 11/25/20 07:28 36.5 C 94 H 94 H 135/73 98
[2020-11-25] MEDS: MERCAPTOPURINE 50 MG TAB PO SCH (18:05)
[2020-11-25] MEDS: ROSUVASTATIN CALCIUM 5 MG TAB PO SCH (18:13)
[2020-11-25] MEDS: traZODone HCL 50 MG TAB PO SCH (20:27)
[2020-11-25] MEDS: oxyCODONE/ACETAMINOPHEN 5mg/325mg TAB PO PRN (20:34)
[2020-11-26 07:48] VITALS: BP 124/69; PULSE 77; TEMP 97.9
[2020-11-26 08:29] LABS: Partial Thromboplastin Ratio 1.2; Partial Thromboplastin Time 30.4 Seconds (21.0-31.0)
[2020-11-26] MEDS: PANTOprazole 40 MG TAB PO SCH (08:54)
[2020-11-26] MEDS: sulfaSALAzine 500 MG TABLET PO SCH (08:54)
[2020-11-26] MEDS: TAMOXIFEN CITRATE 10 MG TABLET PO SCH (08:54)
--- NOTE | 2020-11-26 10:04 | Surgery Progress Note ---
Date of Service November 26, 2020 Assessment & Plan (1) Ischemia of left lower extremity: This patient is day 2 after endovascular intervention of the left lower extremity for ischemic pain. She is doing well with total resolution of the pain. She can be discharged today to her independent living facility. Admission and Anticipated Discharge Date Admission Date: November 23, 2020 Subjective Patient without any pain in her left leg. She claims it feels much better and is resolved. Physical Exam Constitutional: well developed and well nourished Cardiovascular: Left foot warm. Good doppler of left ant tib Skin: + incision (Puncture site without complication) Results & Data ([facility]) Vital Signs (Past 12 Hours) Vital Signs Temp Pulse Resp BP Pulse Ox 11/26/20 07:45 36.6 C 77 16 124/69 95 11/25/20 23:06 36.7 C 70 16 99/65 L 95
[2020-11-26] MEDS: dilTIAZem HCL 180 MG CAPCR PO SCH (11:45)
[2020-11-26] MEDS: METOPROLOL SUCC 50MG EXT REL TAB PO SCH (11:45)
[2020-11-26] MEDS: CALCIUM 600MG + VIT D 400 IU TAB PO SCH (11:45)
[2020-11-26] MEDS: oxyCODONE/ACETAMINOPHEN 5mg/325mg TAB PO PRN (11:45)
[2020-11-26] MEDS: CEROVITE ADV FORMULA TAB PO SCH (11:45)
[2020-11-26] MEDS: CLOPIDOGREL BISULFATE 75 MG TAB PO SCH (11:46)
[2020-11-26] MEDS: CHOLECALCIFEROL 1,000 UNITS 25 MCG TAB PO SCH (11:46)
[2020-11-26] MEDS: cloNIDine HCL 0.1 MG TAB PO SCH (11:46)
--- NOTE | 2020-11-29 11:34 | Discharge Summary ---
Date of Service November 29, 2020 Admission HPI Per Admitting Provider 85 yo f with hx of a fib, HTN, CHF, mitral regurgitation, sick sinus syndrome with pacemaker, lumbar compression fracture, GERD, breast ca, hyperlipidemia, previously known to Dr Duncan for LLE ischemia which required open thrombectomy and LIGHTING TECHNICIAN of SFA/pop in May 2020, seen in consultation today for new onset LLE calf claudication and lateral L ankle numbness which started yesterday. Pt states these sx are not as severe as the last time. States as of last week, she was able to walk 100 yards without pain, but now is only able to walk about 10 steps. Became concerned and came to [facility] for eval. Denies discoloration or rest pain or inability to bear weight or move toes. Denies BECK, fever, chest pain, SOB, abd pain, N/V, any problems with R leg, ulcerations, other complaints. LLE arterial US demonstrates significant PAD with monophasic pop flow and post tib occlusion. Admission Exam Per Admitting Provider Constitutional: WD/WN, vitals as above healthy appearing, cooperative and comfortable; not in distress Eyes: PERRL, conjunctivae normal, anicteric sclerae ENMT: Ears: no hearing impairment Neck: trachea midline Respiratory: normal respiratory effort, lungs clear to auscultation Auscultation: + diminished lung sounds Cardiovascular: Rate/Rhythm: + irregularly irregular Vessels: femoral pulses present, posterior tibial pulses present (nonpalpable BLE, +doppler RLE only ) and dorsalis pedis pulses present (nonpalpable BLE, +doppler RLE only. + LLE ant tib signal to ankle); + abnormal peripheral pulses Extremities: + abnormal capillary refill (RLE normal, LLE 6 seconds.) L toes cooler than R, but still some warmth, no cyanosis. Gastrointestinal (Abdomen): normal bowel sounds, soft, nontender, no hepatosplenomegaly Musculoskeletal: no cyanosis or clubbing, extremities motor strength 5/5 Skin: no rashes, warm and dry Neurologic: moves all extremities and awake; no focal motor deficits and not confused Psychiatric: A+Ox3, euthymic affect Principal Diagnosis 1. LLE ischemia 2. s/p LLE angio with LIGHTING TECHNICIAN/stent SFA/pop, and LIGHTING TECHNICIAN ant tib Discharge Exam Constitutional WD/WN, vitals as above healthy appearing, cooperative and comfortable; not in distress Respiratory normal respiratory effort, lungs clear to auscultation Auscultation: + diminished lung sounds Cardiovascular Rate/Rhythm: + irregularly irregular Vessels: femoral pulses present, posterior tibial pulses present (dopplerable) and dorsalis pedis pulses present (Dopplerabe); + abnormal peripheral pulses Extremities: normal capillary refill Gastrointestinal (Abdomen) normal bowel sounds, soft, nontender, no hepatosplenomegaly Musculoskeletal no cyanosis or clubbing, extremities motor strength 5/5 Skin no rashes, warm and dry Neurologic moves all extremities and awake; no focal motor deficits and not confused Psychiatric A+Ox3, euthymic affect Discharge Data Allergies Allergy/AdvReac Type Severity Reaction Status Date / Time Penicillins Allergy Severe THROAT Verified 11/23/20 07:35 SWELLS, PASSES OUT aspirin Allergy Intermediate WELTS Verified 11/23/20 07:35 AROUND EYES [place] [employer]atives Allergy Mild Runny/stuffy Verified 11/23/20 07:35 nose mayonnaise Allergy Verified 11/23/20 07:35 chicken derived AdvReac Intermediate DIARRHEA Verified 11/23/20 07:35 chocolate flavor AdvReac Intermediate DIARRHEA Verified 11/23/20 07:35 lactose AdvReac Intermediate GI upset Verified 11/23/20 07:35 grass pollen-perennial rye, AdvReac Mild RUNNY Verified 11/23/20 07:35 standar NOSE/SINUS ISSUES mushroom AdvReac Mild GI SYMPTOMS Verified 11/23/20 07:35 pollen extracts AdvReac Mild RUNNY Verified 11/23/20 07:35 NOSE/SINUS ISSUES soy AdvReac Mild GI SYMPTOMS Verified 11/11/20 09:52 Rlwmbgx-Wvf-Kac Reductase AdvReac Mild DID NOT Verified 11/11/20 09:52 Inhibitor WORK lorazepam AdvReac Hallucinati Verified 11/11/20 09:52 ng Consultations 11/23/20 10:08 Consult Vascular Surgery Stat Procedures Performed Operation Date: 11/24/20 14:00 Actual Procedures p Left Lower Extremity Angiogram, Percutaneous Transluminal Angioplasty and Stenting of Left Superficial Femoral Artery and Left Popliteal Arteries, Percutaneous Transluminal Angioplasty of Left Anterior Tibeal Artery, Mechancial Closure of Right Femoral Artery, (Right) - Bubba Duncan MD Ordered Studies 11/23/20 07:23 US arterial duplex LE LT Stat US venous doppler LE LT Stat 11/24/20 14:08 EV angio LE LT Routine US EV guide vascular access Routine Hospital Course (1) Ischemia of left lower extremity: This patient is day 2 after endovascular intervention of the left lower extremity for ischemic pain. She is doing well with total resolution of the pain. She can be discharged today to her independent living facility. Total Time Total Time Spent Total Time Spent (In Minutes): 0 Discharge Plan Discharge Items Patient Disposition: Transfer [facility] Reason For Visit: LLE ISCHEMIA Discharge Diagnosis: ischemic left lower extremity Activity: Per Instructions section Lifting: None Bathing: No limitations Exercise/Sports: As tolerated Weightbearing: Full weightbearing Non-emergency contact: Surgeon Call non-emergency contact if: your temperature is above 101.5, your wound has increased redness, your wound has increased drainage and your wound pain has increased Follow-up/Referrals: Ole Spangler MD [Primary Care Provider] - 12/02/20 10:00 am (You will be seeing Bisi Londono) Bubba Duncan MD [Physician] - (Please call Dr. Lowery office to schedule a follow up appt at [phone]. We attempted to assist you with this appt, but the medical appointment scheduler was currently unavailable.) Diet: Heart Healthy Addtl Attending Provider Instructions: SPECIAL CARE INSTRUCTIONS: Medications: * Continue to take your medications as directed. If you have been given a prescription for Plavix, please fill it immediately and take as directed. Incision Care: * Your puncture site may have some bruising and minor swelling for about one week. * You will have a small dressing covering your puncture site. You may remove the dressing after 24 hours and shower. You may let the warm soapy water run over it, but be sure to dry the puncture site well and keep it dry. * DO NOT IMMERSE THE INCISION IN A TUB/POOL/etc. UNTIL HEALED. * Puncture sites should be kept covered with a band-aid until it begins to heal. Restrictions: * Depending on whether you leg or arm was punctured to access the arteries, you will be required to lay flat, hold your arm still, or both, for about 4 hours after the procedure to prevent bleeding. * Limit your activity for the first 48 hours. You may walk and go up and down steps. Avoid excessive bending or movement at the puncture site. Possible Complications: * Excessive Swelling - after blood flow is improved you may notice increased swelling in the lower legs. This is a normal response. This usually depends on the amount of blockages in the leg, how long they have been there prior to your procedure and how much blood flow was restored. Elevating your legs will help to improve this. Please notify our office ) if the swelling does not go away after lying in bed overnight. * Infection/Drainage/Bleeding - Drainage or bleeding from the puncture site should be minimal. If you have excessive bleeding or drainage, call our office ([phone]) right away. * Pain - You may experience some mild pain or soreness at your puncture site. If your pain does not improve, please contact our office ([phone]). Call your doctor and seek emergent treatment if you develop: * Temperature above 101 degrees * Any fever or chills * Any redness or purulent drainage from the puncture site * Any new dusky/blue colored toes or feet with coolness or sharp or aching pain. SKIN IRRITATION: * You may experience some redness and/or swelling in the area where radiation was administered. If any skin irritation occurs, please contact your family physician. FOLLOW UP VISIT: Keep any scheduled doctor appointments. Call [phone] to schedule a follow up appointment if one not already scheduled. Pending Studies at Discharge: No Stand-Alone Forms: My Novavax AB, Smoking Cessation Skilled Items Patient informed of condition?: Yes DNR: No Discharge Level of Care: Other Communicable Disease: No Discharge Prognosis: Improving Lines: None Urinary Catheter: No Medications and DC Order Prescriptions: Continued metoprolol succinate 100 mg tablet extended release 24 hr 150 mg PO DAILY@1200 RF: 0 warfarin 3 mg tablet See Rx Instructions PO UD Qty: 135 RF: 1 Restasis 0.05 % dropperette 1 drp OPB BID RF: 0 cholecalciferol (vitamin D3) [Vitamin D3] 50 mcg (2,000 unit) capsule 2,000 unit PO DAILY@1200 RF: 0 calcium carb and citrate-vitD3 [Citracal-D3 Slow Release] 600 mg calcium- 500 unit tablet extended release 1 tab PO BID RF: 0 Adult One Daily Gummies 200 mcg tablet,chewable 1 tab PO DAILY@1200 RF: 0 mercaptopurine 50 mg tablet 75 mg PO QDD RF: 0 (DME) walker misc See Dose Instructions .ROUTE .MEDSUPPLY Qty: 1 RF: 0 tamoxifen 20 mg tablet 20 mg PO QAM RF: 0 PreserVision AREDS 7,160 unit- 113 mg-100 unit Tablet 2 tab PO BID RF: 0 clonidine HCl 0.1 mg tablet 0.1 mg PO BID RF: 0 sulfasalazine 500 mg tablet 1,000 mg PO BID RF: 0 diltiazem HCl [Cardizem CD] 360 mg capsule,extended release 24hr 360 mg PO DAILY@1200 RF: 0 clopidogrel [Plavix] 75 mg tablet 75 mg PO DAILY@1200 RF: 0 pantoprazole [Protonix] 40 mg tablet,delayed release (DR/EC) 40 mg PO BIDM RF: 0 rosuvastatin 5 mg tablet 5 mg PO QDD RF: 0 trazodone 50 mg tablet 25 mg PO HS RF: 0 tramadol [Ultram] 50 mg tablet 50 mg PO Q8H PRN (Reason: Pain) RF: 0 furosemide [Lasix] 20 mg Tablet 20 mg PO DAILY PRN (Reason: Weight Gain) RF: 0 loratadine [Claritin] 10 mg Tablet 10 mg PO DAILY PRN (Reason: Allergy Symptoms) RF: 0 Restasis 0.05 % Dropperette 1 drp OPB Q12H RF: 0 Prolia 60 mg/mL Syringe 60 mg SUBCUT Q6M RF: 0 Discharge Orders: Discharge Order (Routine); Ordered 11/26/20 Ordered By: Bubba Ness/Other Patient Handouts: Low-Salt Choices, Medicine for Pain, Communicating About Pain, Managing Post-Op Pain at Home, ED Rebound Headache Admission Data Admit Date/Time: 11/23/20 10:35 Attending Provider: Bubba Duncan Admit Provider: Bubba Duncan Primary Care Provider: Ole Spangler Other Providers: Bubba Duncan Other Interventions: Discharge Summary Assessment (RN) Last Done: 11/26/20 11:25
== END 2020-11-26 12:13 | DRG 253 ==
LOC: ED 07:05 → 3N 10:35

== ENCOUNTER 2021-03-20 22:30 | Inpatient (IN) ==
[2021-03-20] MEDS ORDERED: ONDANSETRON INJ 2 MG/ML 2 ML VIAL IV STA (22:48)
[2021-03-20] MEDS ORDERED: MoRPHine SULFATE 4 MG/ML 1 ML CARP\\VIAL IV PRN (22:48)
[2021-03-20] MEDS ORDERED: SODIUM CHLORIDE 0.9% 500 ML IV STA (22:48)
[2021-03-20 23:04] LABS: Mean Corpuscular Hgb Conc 32.2 g/dL (32-36); Nucleated RBC # (auto) 0.07 K/uL (0-0); Nucleated RBC % (auto) 0.8 %; Platelet Count 366 K/uL (130-400)
[2021-03-20 23:28] LABS: Hematocrit (blood only) 38.2 % (37-47); Hemoglobin 12.3 g/dL (12.0-16.0); Mean Corpuscular Hemoglobin 33.3 pg (25-34); Mean Corpuscular Volume 103.5 fL (80-100); RDW Coefficient of Variation 17.8 % (11.5-14.5); RDW Standard Deviation 67.2 fL (36.4-46.3); Red Blood Count 3.69 M/uL (4.2-5.4); White Blood Count 8.74 K/uL (4.8-10.8)
[2021-03-20 23:33] LABS: Acanthocytes 1+; Basophils # (auto) 0.04 K/uL (0-0.2); Basophils % (auto) 0.5 %; Eosinophils # (auto) 0.12 K/uL (0-0.5); Eosinophils % (auto) 1.4 %; Howell-Jolly Bodies Occasional; Immature Granulocytes # (auto) 0.02 K/uL (0.00-0.02); Immature Granulocytes % (auto) 0.2 %; Lymphocytes # (auto) 1.49 K/uL (1.2-3.4); Monocytes # (auto) 1.11 K/uL (0.11-0.59); Monocytes % (auto) 12.7 %; Neutrophils # (auto) 5.96 K/uL (1.4-6.5); Neutrophils % (auto) 68.2 %; Pappenheimer Bodies Occasional
[2021-03-20] MEDS ORDERED: ONDANSETRON 4 MG OD TAB ONE (23:44)
[2021-03-20] MEDS ORDERED: ONDANSETRON 4 MG OD TAB PO STA (23:46)
[2021-03-21] LABS: Alanine Aminotransferase 39 U/L (12-78); Albumin Level 3.9 gm/dl (3.4-5.0); BUN Creatinine Ratio 17.4 (10-20); Blood Urea Nitrogen 14 mg/dl (7-18); Calcium 9.6 mg/dl (8.5-10.1); Carbon Dioxide 28 mmol/L (21-32); Chloride 105 mmol/L (98-107); Creatinine Clr Calc Pharmacy 43.7 ml/min; Est GFR (African American) 79.2 ml/min; Est GFR (Non-African American) 68.4 ml/min; Glucose 106 mg/dl (70-99); Sodium 140 mmol/L (136-145)
[2021-03-21 00:02] LABS: INR 3.7 (0.9-1.1); Partial Thromboplastin Ratio 1.3; Partial Thromboplastin Time 33.7 Seconds (21.0-31.0); Prothrombin Time 33.7 Seconds (9.0-12.0)
[2021-03-21 00:07] LABS: Alkaline Phosphatase 61 U/L (45-117); Bilirubin,Total 0.7 mg/dl (0.2-1); Globulin 3.8 gm/dl (2.5-4.0); Lipase 5498 U/L (73-393); Total Protein 7.7 gm/dl (6.4-8.2); Troponin I < 0.015 ng/ml (0-0.045)
[2021-03-21 00:37] LABS: Appearance Urine Turbid (Clear); Bacteria Urine Automated Negative (Negative); Bilirubin Urine Negative (Negative); Blood Urine Negative (Negative); Color Urine Dark Yellow; Epithelial Cell Urine Auto 20-30 /lpf (0-5); Glucose Urine UA Negative (Negative); Ketones Urine Trace (Negative); Leukocyte Esterase Urine Trace (Negative); Nitrite Urine Negative (Negative); Specific Gravity Urine 1.023 (1.000-1.030); Urobilinogen Urine Negative (Negative); pH Urine >= 9.0 (4.5-7.5)
[2021-03-21 00:41] LABS: Protein Urine 1+ (Negative)
[2021-03-21] MEDS ORDERED: ONDANSETRON INJ 2 MG/ML 2 ML VIAL IV STA (01:41)
[2021-03-21] MEDS ORDERED: MoRPHine SULFATE 4 MG/ML 1 ML CARP\\VIAL IV STA (01:41)
--- NOTE | 2021-03-21 02:33 | Emergency Department Note ---
Impression & Plan Acute pancreatitis, Gastric outlet obstruction, Vomiting, Left sided abdominal pain ED Provider Note NAME: AMAIRANI BOUCHER AGE: 86 SEX: F : 1935 ARRIVES VIA: Ambulance INFORMANT: [Patient] ED PROVIDER(S): [Jordi Martinez MD] CHIEF COMPLAINT: Abdominal pain, vomiting HISTORY OF PRESENT ILLNESS: The patient is an 86-year-old female presents with several hours of vomiting and left-sided abdominal pain. This all began after eating at around 7 PM. The patient describes the pain as severe, constant and nonradiating. She had felt fine earlier in the day. She does have a history of bowel obstruction. There has been no cough, no shortness of breath or chest pain. She has had no urinary complaints. No diarrhea. The patient states that she may have over eaten. REVIEW OF SYSTEMS: See HPI for pertinent positives and negatives. A total of ten systems were reviewed and were otherwise negative. PMHx/PSHx: See Below SOCIAL HISTORY: See Below. PHYSICAL EXAM: GENERAL: Patient is in moderate distress from pain and vomiting. Actively vomi ting when I entered the room. HEENT: No acute trauma, normocephalic atraumatic, mucous membranes moist, no nasal congestion, no scleral icterus. NECK: No stridor, no adenopathy, no meningismus, trachea is midline. LUNGS: Clear to auscultation bilaterally, no wheeze, no rhonchi, breath sounds equal. HEART: Without murmurs gallops or rubs, regular rate and rhythm. ABDOMEN: Soft, moderately tender along the left side of the abdomen, bowel sounds positive, no peritonitis. EXTREMITIES: No cyanosis,, full range of motion of all the joints without pain or difficulty, no signs for acute trauma. NEUROLOGIC: Oriented x 3, no acute motor or sensory deficits, no focal weakness. SKIN: No rash, no jaundice, no diaphoresis. DIFFERENTIAL DIAGNOSIS: Dehydration, electrolyte imbalance, renal failure, liver failure, viral or foodborne illness, bowel obstruction, ND, bowel perforation, diverticulitis or colitis, aspiration, hernia, UTI, among others. EMERGENCY DEPARTMENT COURSE/PROCEDURES: ECG: Indication was vomiting and abdominal pain. The ECG shows what appears to be ventricular pacing. The rate is 80. No concerning ST elevation. No na tive beats. QTC is 491. Continuous Cardiac Monitoring: An order was placed for continuous cardiac monitoring. The monitor shows a rate of 85 with ventricular pacing. Critical Care Note: I have personally spent 42 minutes of critical care time in the direct management of this patient. This includes bedside care, interpretation of diagnostic studies, and testing, discussion with consultants, patient, and family members, and other required patient management activities. This 42 minutes is in excess of all separately billable procedures. MEDICAL DECISION MAKING: There is no leukocytosis or concerning anemia. There is a normal platelet count. INR is elevated at 3.7, this is consistent with her Coumadin use. No significant electrolyte abnormality or kidney failure. No concerning liver enzyme elevation. ECG shows ventricular pacing, no obvious ischemia. Cardiac enzyme testing x1 is not consistent with acute cardiac injury. Lipase is quite high at over 5000, this is consistent with pancreatitis. Covid testing returned negative. Chest film did not show free air or pneumonia. Abdominal and pelvis CT shows a potential gastric outlet obstruction with a distended stomach. No bowel perforation noted. On exam, the patient was uncomfortable and actively vomiting. The patient received IV saline, IV morphine and IV Zofran. She eventually had an NG tube placed by our nursing staff. Of note, the initial NG tube placement was unsuccessful and coiled in the esophagus, the second attempt was successful. The patient presents with vomiting and abdominal pain. She has what appears to be a gastric outlet obstruction, she has significant gastric distention. She appears to have pancreatitis. Patient is feeling somewhat improved after treatment in the ED, hospitalization is required. Further work-up and care is required. I spoke with the patient, I talked to the case mgr. The on-call hospitalist was consulted. Past Med/Surg History Medical History Aortic stenosis Breast cancer (08/27/15) "Abnormal right breast mammogram 08/01/2015 Status post biopsy 08/27/2015 10:00 lesion invasive ductal carcinoma, grade 1 Estrogen receptor positive, progesterone receptor negative, HER-2/quique negative 11:00 lesion invasive lobular carcinoma, grade 1 Estrogen receptor positive, progesterone receptor positive, HER-2/quique negative Status post lumpectomy and sentinel lymph node biopsy 09/27/2015 Lobular and ductal carcinoma Stage pT1b pN1a M0 Radiation therapy stopped 01/26/2016 received 3780 cGy. Treatments stopped early due to admission for compression fracture and inability to tolerate being in the treatment position" On 02/21/16 15:06 Frances Hogan wrote "Abnormal right breast mammogram 08/01/2015 Status post biopsy 08/27/2015 10:00 lesion invasive ductal carcinoma, grade 1 Estrogen receptor positive, progesterone receptor negative, HER-2/quique negative 11:00 lesion invasive lobular carcinoma, grade 1 Estrogen receptor positive, progesterone receptor positive, HER-2/quique negative Status post lumpectomy and sentinel lymph node biopsy 09/27/2015 Lobular and ductal carcinoma Stage pT1b pN1a M0" On 02/21/16 15:06 Frances Hogan wrote "Abnormal right breast mammogram 08/01/2015 Status post biopsy 08/27/2015 10:00 lesion invasive ductal carcinoma, grade 1 Estrogen receptor positive, progesterone receptor negative, HER-2/quique negative 11:00 lesion invasive lobular carcinoma, grade 1 Estrogen receptor positive, progesterone receptor positive, HER-2/quique negative Status post lumpectomy and sentinel lymph node biopsy 09/27/2015 Lobular and ductal carcinoma Stage pT1b pN1a M0 Status post radiation therapy, treatment stopped 01/26/2016 received 3780 cGy " On 10/14/15 13:28 Frances Hogan wrote "Abnormal right breast mammogram 08/01/2015 Status post biopsy 08/27/2015 10:00 lesion invasive ductal carcinoma, grade 1 Estrogen receptor positive, progesterone receptor negative, HER-2/quique negative 11:00 lesion invasive lobular carcinoma, grade 1 Estrogen receptor positive, progesterone receptor positive, HER-2/quique negative Status post lumpectomy and sentinel lymph node biopsy 09/27/2015 Lobular and ductal carcinoma Stage pT1b pN1a M0 " Breast cancer RT BREAST (SX AND RADIATION) CHF (congestive heart failure) Compression fracture of lumbar vertebra Facial basal cell cancer NOSE GERD (gastroesophageal reflux disease) HLD (hyperlipidemia) HTN (hypertension) Hypertensive urgency Incarcerated paraesophageal hernia Lower extremity pain, left On anticoagulant therapy warfarin/plavix daily Osteoarthritis 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" (FOLLOWED BY [facility]) Paraesophageal hiatal hernia SSS (sick sinus syndrome) (02/18/14) Stroke OVER 20 YEARS AGO (NO CURRENT PROBLEMS) Ulcerative colitis Ulcerative colitis "REMISSION" Unintentional weight loss per pt reason for colonoscopy Surgical History H/O total hysterectomy UTERINE MASS REMOVED (BENIGN) History of appendectomy History of cataract surgery History of colonoscopy History of esophagogastroduodenoscopy (EGD) [place] [facility] [facility] [place] found 2 ulcers-1 in esophagus and 1 in stomach History of herniorrhaphy History of kyphoplasty History of tonsillectomy and adenoidectomy History of tooth extraction Hx of lumpectomy RT Family History Other Benign essential HTN Coronary heart disease PVD (peripheral vascular disease) Stroke Denies family history of Ovarian cancer Prostate cancer Breast cancer Lung cancer Colorectal cancer Social History Smoking Status: Never smoker Second Hand Exposure: No; Do You Dip or Chew Tobacco: No; Tobacco Cessation Education Requested by Patient: No Hx Alcohol Use: Yes Alcohol type: wine Alcohol Intake Frequency: Monthly or Less Hx Substance Use: No Preferred Language: Greenlandic Communication Ability: Effective Visual Impairment: Limited Hearing Ability: Normal Auto Wrecker Required: No Beliefs That Will Affect Care: None marital status: Single Current Living Situation: Personal Care Facility Current Living Situation Comment: [facility] current occupational status: retired How many Children do You have: 1 Other Information That Helps Us Care for You: No Feels Safe at Home: Yes Safety Concerns: Feels Safe At This Time Childhood Exposure to Second-Hand Smoke: No caffeine: Yes (drinks soda ) Dental Care, Regularly: Yes Physical Activity Frequency: Daily Physical Activity Frequency Comment: walks daily Seatbelt Use: always Sunscreen Use: No Assistive Devices: Walker Allergies Allergies Allergy/AdvReac Type Severity Reaction Status Date / Time Penicillins Allergy Severe THROAT Verified 03/20/21 23:43 SWELLS, PASSES OUT aspirin Allergy Intermediate WELTS Verified 03/20/21 23:43 AROUND EYES [place] And Derivatives Allergy Mild Runny/stuffy Verified 03/20/21 23:43 nose mayonnaise Allergy Unknown Verified 03/20/21 23:43 chicken derived AdvReac Intermediate DIARRHEA Verified 03/20/21 23:43 chocolate flavor AdvReac Intermediate DIARRHEA Verified 03/20/21 23:43 lactose AdvReac Intermediate GI upset Verified 03/20/21 23:43 grass pollen-perennial rye, AdvReac Mild RUNNY Verified 03/20/21 23:43 standar NOSE/SINUS ISSUES mushroom AdvReac Mild GI SYMPTOMS Verified 03/20/21 23:43 pollen extracts AdvReac Mild RUNNY Verified 03/20/21 23:43 NOSE/SINUS ISSUES soy AdvReac Mild GI SYMPTOMS Verified 03/20/21 23:43 Eqqcsxe-TCP-YiH Reductase AdvReac Mild DID NOT Verified 03/20/21 23:43 Inhibitor WORK [Zyyqbmr-Cgf-Hlf Reductase Inhibitor] lorazepam AdvReac Hallucinati Verified 03/20/21 23:43 ng Home Meds Home Medications Medication Instructions Recorded Confirmed calcium carb,cit ER 600 mg-vit D3 1 tab PO BID tab 07/05/20 03/20/21 12.5 mcg (500 unit) tablet,ext.rel (Citracal-D3 Slow Release) cholecalciferol (vitamin D3) 50 2,000 unit PO DAILY@1200 cap 07/05/20 03/20/21 mcg (2,000 unit) capsule (Vitamin D3) multivitamin with minerals-folic 1 tab PO DAILY@1200 tab 07/05/20 03/20/21 acid 200 mcg chewable tablet (Adult One Daily Gummies) clonidine HCl 0.1 mg tablet 0.1 mg PO BID 11/23/20 03/20/21 clopidogrel 75 mg tablet (Plavix) 75 mg PO DAILY@1200 11/23/20 03/20/21 cyclosporine 0.05 % eye drops in a 1 drp OPB Q12H 11/23/20 03/20/21 dropperette (Restasis) diltiazem HCl 360 mg 360 mg PO DAILY@1200 11/23/20 03/20/21 capsule,extended release 24 hr (Cardizem CD) loratadine 10 mg tablet (Claritin) 10 mg PO HS PRN 11/23/20 03/20/21 pantoprazole 40 mg tablet,delayed 40 mg PO BIDM 11/23/20 03/20/21 release (Protonix) rosuvastatin 5 mg tablet 5 mg PO QDD 11/23/20 03/20/21 sulfasalazine 500 mg tablet 1,000 mg PO BID 11/23/20 03/20/21 vitamins A,C,L-nogp-ldxpee 7,160 1 tab PO BID 11/23/20 03/20/21 unit-113 mg-100 unit tablet (PreserVision AREDS) warfarin 3 mg tablet See Rx Instructions PO UD tab 01/13/21 03/20/21 denosumab 60 mg/mL subcutaneous 60 mg SUBCUT .COMPLEX ml 02/25/21 03/20/21 syringe (Prolia) famotidine 20 mg tablet 20 mg PO HS 03/20/21 03/20/21 furosemide 20 mg tablet (Lasix) 20 mg PO DAILY 03/20/21 03/20/21 mercaptopurine 50 mg tablet 75 mg PO QPM 03/20/21 03/20/21 potassium chloride 10 mEq 10 meq PO DAILY 03/20/21 03/20/21 capsule,extended release tramadol 50 mg tablet 50 mg PO Q8 PRN 03/20/21 03/20/21 Previous Rx's Medication Instructions Recorded walker #1 ea 03/11/19 trazodone 50 mg tablet 25 mg PO HS #45 tab 12/31/20 metoprolol succinate 100 mg 200 mg PO DAILY@1200 #180 tab 02/25/21 tablet,extended release 24 hr Results & Data (ED) Vital Signs Vital Signs - 24 hr 03/20/21 22:24 03/20/21 22:37 03/20/21 23:00 Temperature 37.1 C Temperature Source Oral Pulse Rate 89 93 H 82 Pulse Rate from SpO2 Sensor 98 H Respiratory Rate 18 19 20 Respiratory Effort / Characteristics Non-Labored Spontaneous Respiratory Depth Normal Respiratory Pattern Regular Blood Pressure 169/82 H Blood Pressure Mean 111 Pulse Oximetry 98 93 Oxygen Delivery Method Room Air Sepsis Recent Fever Within 48 Hours No Sepsis New/Unexplained Change in Mental Status No Sepsis Action Taken by Nursing No Action Required 03/21/21 00:18 03/21/21 00:52 03/21/21 01:00 Temperature Temperature Source Pulse Rate 76 99 H 84 Pulse Rate from SpO2 Sensor Respiratory Rate 23 19 Respiratory Effort / Characteristics Respiratory Depth Respiratory Pattern Blood Pressure Blood Pressure Mean Pulse Oximetry Oxygen Delivery Method Sepsis Recent Fever Within 48 Hours Sepsis New/Unexplained Change in Mental Status Sepsis Action Taken by Nursing 03/21/21 01:30 03/21/21 02:00 03/21/21 02:30 Temperature Temperature Source Pulse Rate 84 89 86 Pulse Rate from SpO2 Sensor Respiratory Rate 21 20 30 H Respiratory Effort / Characteristics Respiratory Depth Respiratory Pattern Blood Pressure 159/75 H 182/92 H Blood Pressure Mean 103 122 Pulse Oximetry Oxygen Delivery Method Sepsis Recent Fever Within 48 Hours Sepsis New/Unexplained Change in Mental Status Sepsis Action Taken by Detention Medications Current Medication List: was personally reviewed by me Laboratory Data Attestation: I reviewed the patient's lab results. Result diagrams: 03/20/21 Unknown 03/21/21 00:23 Lab Results 03/20/21 03/20/21 03/20/21 Range/Units 23:20 23:20 Unknown WBC (4.8-10.8) K/uL RBC (4.2-5.4) M/uL Hgb (12.0-16.0) g/dL Hct (37-47) % MCV (80-100) fL MCH (25-34) pg MCHC (32-36) g/dL RDW Std Deviation (36.4-46.3) fL RDW Coeff of Terrance (11.5-14.5) % Plt Count (130-400) K/uL MPV (7.4-10.4) fL Immature Gran % (Auto) % Neut % (Auto) % Lymph % (Auto) % [place] % (Auto) % Eos % (Auto) % Baso % (Auto) % Neut # (Auto) (1.4-6.5) K/uL Lymph # (Auto) (1.2-3.4) K/uL [place] # (Auto) (0.11-0.59) K/uL Eos # (Auto) (0-0.5) K/uL Baso # (Auto) (0-0.2) K/uL Immature Gran # (Auto) (0.00-0.02) K/uL Absolute Nucleated RBC (0-0) K/uL Nucleated RBC % (auto) % Pappenheimer Bodies [employer] Bodies Acanthocytes (Spur) PT 33.7 H (9.0-12.0) Seconds INR 3.7 H (0.9-1.1) APTT 33.7 H (21.0-31.0) Seconds PTT Ratio 1.3 Sodium 140 Cancelled (136-145) mmol/L Potassium Cancelled (3.5-5.1) mmol/L Chloride 105 Cancelled (98-107) mmol/L Carbon Dioxide 28 Cancelled (21-32) mmol/L Anion Gap 7.0 Cancelled (3-11) BUN 14 Cancelled (7-18) mg/dl Creatinine 0.78 Cancelled (0.6-1.2) mg/dl Est Cr Clr Drug Dosing 43.7 Cancelled ml/min Est GFR ( Amer) 79.2 Cancelled ml/min Est GFR (Non-Af Amer) 68.4 Cancelled ml/min BUN/Creatinine Ratio 17.4 Cancelled (10-20) Glucose 106 H Cancelled (70-99) mg/dl Lactate (0.4-2.0) mmol/L Calcium 9.6 Cancelled (8.5-10.1) mg/dl Total Bilirubin 0.7 Cancelled (0.2-1) mg/dl AST Cancelled (15-37) U/L ALT 39 Cancelled (12-78) U/L Alkaline Phosphatase 61 Cancelled (45-117) U/L Troponin I < 0.015 Cancelled (0-0.045) ng/ml Total Protein 7.7 Cancelled (6.4-8.2) gm/dl Albumin 3.9 Cancelled (3.4-5.0) gm/dl Globulin 3.8 Cancelled (2.5-4.0) gm/dl Albumin/Globulin Ratio 1.0 Cancelled (0.9-2) Lipase 5498 H Cancelled (73-393) U/L COVID-19 Eval Order SARS-CoV-2 (PCR) (Negative) 03/20/21 03/21/21 03/21/21 Range/Units Unknown 00:23 00:23 WBC 8.74 (4.8-10.8) K/uL RBC 3.69 L (4.2-5.4) M/uL Hgb 12.3 (12.0-16.0) g/dL Hct 38.2 (37-47) % MCV 103.5 H (80-100) fL MCH 33.3 (25-34) pg MCHC 32.2 (32-36) g/dL RDW Std Deviation 67.2 H (36.4-46.3) fL RDW Coeff of Terrance 17.8 H (11.5-14.5) % Plt Count 366 (130-400) K/uL MPV 11.0 H (7.4-10.4) fL Immature Gran % (Auto) 0.2 % Neut % (Auto) 68.2 % Lymph % (Auto) 17.0 % [place] % (Auto) 12.7 % Eos % (Auto) 1.4 % Baso % (Auto) 0.5 % Neut # (Auto) 5.96 (1.4-6.5) K/uL Lymph # (Auto) 1.49 (1.2-3.4) K/uL [place] # (Auto) 1.11 H (0.11-0.59) K/uL Eos # (Auto) 0.12 (0-0.5) K/uL Baso # (Auto) 0.04 (0-0.2) K/uL Immature Gran # (Auto) 0.02 (0.00-0.02) K/uL Absolute Nucleated RBC 0.07 H (0-0) K/uL Nucleated RBC % (auto) 0.8 % Pappenheimer Bodies Occasional [employer] Bodies Occasional Acanthocytes (Spur) 1+ PT (9.0-12.0) Seconds INR (0.9-1.1) APTT (21.0-31.0) Seconds PTT Ratio Sodium (136-145) mmol/L Potassium 4.0 (3.5-5.1) mmol/L Chloride (98-107) mmol/L Carbon Dioxide (21-32) mmol/L Anion Gap (3-11) BUN (7-18) mg/dl Creatinine (0.6-1.2) mg/dl Est Cr Clr Drug Dosing ml/min Est GFR ( Amer) ml/min Est GFR (Non-Af Amer) ml/min BUN/Creatinine Ratio (10-20) Glucose (70-99) mg/dl Lactate 1.0 (0.4-2.0) mmol/L Calcium (8.5-10.1) mg/dl Total Bilirubin (0.2-1) mg/dl AST 28 (15-37) U/L ALT (12-78) U/L Alkaline Phosphatase (45-117) U/L Troponin I (0-0.045) ng/ml Total Protein (6.4-8.2) gm/dl Albumin (3.4-5.0) gm/dl Globulin (2.5-4.0) gm/dl Albumin/Globulin Ratio (0.9-2) Lipase (73-393) U/L COVID-19 Eval Order SARS-CoV-2 (PCR) (Negative) 03/21/21 03/21/21 Range/Units 02:39 02:39 WBC (4.8-10.8) K/uL RBC (4.2-5.4) M/uL Hgb (12.0-16.0) g/dL Hct (37-47) % MCV (80-100) fL MCH (25-34) pg MCHC (32-36) g/dL RDW Std Deviation (36.4-46.3) fL RDW Coeff of Terrance (11.5-14.5) % Plt Count (130-400) K/uL MPV (7.4-10.4) fL Immature Gran % (Auto) % Neut % (Auto) % Lymph % (Auto) % [place] % (Auto) % Eos % (Auto) % Baso % (Auto) % Neut # (Auto) (1.4-6.5) K/uL Lymph # (Auto) (1.2-3.4) K/uL [place] # (Auto) (0.11-0.59) K/uL Eos # (Auto) (0-0.5) K/uL Baso # (Auto) (0-0.2) K/uL Immature Gran # (Auto) (0.00-0.02) K/uL Absolute Nucleated RBC (0-0) K/uL Nucleated RBC % (auto) % Pappenheimer Bodies [employer] Bodies Acanthocytes (Spur) PT (9.0-12.0) Seconds INR (0.9-1.1) APTT (21.0-31.0) Seconds PTT Ratio Sodium (136-145) mmol/L Potassium (3.5-5.1) mmol/L Chloride (98-107) mmol/L Carbon Dioxide (21-32) mmol/L Anion Gap (3-11) BUN (7-18) mg/dl Creatinine (0.6-1.2) mg/dl Est Cr Clr Drug Dosing ml/min Est GFR ( Amer) ml/min Est GFR (Non-Af Amer) ml/min BUN/Creatinine Ratio (10-20) Glucose (70-99) mg/dl Lactate (0.4-2.0) mmol/L Calcium (8.5-10.1) mg/dl Total Bilirubin (0.2-1) mg/dl AST (15-37) U/L ALT (12-78) U/L Alkaline Phosphatase (45-117) U/L Troponin I (0-0.045) ng/ml Total Protein (6.4-8.2) gm/dl Albumin (3.4-5.0) gm/dl Globulin (2.5-4.0) gm/dl Albumin/Globulin Ratio (0.9-2) Lipase (73-393) U/L COVID-19 Eval Order Covid19 at [facility] [place] SARS-CoV-2 (PCR) NEGATIVE (Negative) Administered Medications Promethazine HCl 12.5 mg/ (Sodium Chloride) 50.5 mls @ 202 mls/hr IV Q6H PRN PRN Reason: Nausea And Vomiting Stop: 04/20/21 03:12 Last Infusion: 03/21/21 04:32 Dose: 0 mls/hr Documented by: [id number] Admin: 03/21/21 03:52 Dose: 202 mls/hr Documented by: [id number] Famotidine 20 mg/ Syringe 5 mls @ 2.5 mls/min IV Q12 FRED Stop: 04/20/21 08:59 Last Admin: 03/21/21 08:02 Dose: 2.5 mls/min Documented by: [id number] Sodium Chloride (Nss 1000ml) 1,000 mls @ 60 mls/hr IV .[id number] FRED Stop: 03/22/21 14:22 Last Admin: 03/21/21 05:36 Dose: 60 mls/hr Documented by: [id number] Miscellaneous (Restasis~Order Awaiting Action) 1 ea N/A QS FRED Stop: 04/20/21 07:59 Last Admin: 03/21/21 14:48 Dose: Not Given Documented by: [id number] Admin: 03/21/21 07:57 Dose: Not Given Documented by: [id number] Multivitamins/Minerals (Cerovite Adv Formula Tab) 1 tab PO BID FRED Stop: 04/20/21 08:59 Last Admin: 03/21/21 08:02 Dose: Not Given Documented by: [id number] Sulfasalazine (Sulfasalazine 500 Mg Tablet) 1,000 mg PO BID FRED Stop: 04/20/21 08:59 Last Admin: 03/21/21 08:02 Dose: Not Given Documented by: [id number] Discontinued Medications Sodium Chloride (Nss) 500 mls @ 999 mls/hr IV .Q31M STA Stop: 03/20/21 23:18 Last Infusion: 03/21/21 04:32 Dose: 0 mls/hr Documented by: [id number] Admin: 03/21/21 00:18 Dose: 999 mls/hr Documented by: [id number] Morphine Sulfate (Morphine Sulfate 4 Mg/Ml 1 Ml Carp\\Vial) 4 mg IV Q15M PRN PRN Reason: Pain Stop: 04/03/21 22:47 Last Admin: 03/21/21 00:18 Dose: 4 mg Documented by: [id number] Morphine Sulfate (Morphine Sulfate 4 Mg/Ml 1 Ml Carp\\Vial) 4 mg IV NOW STA Stop: 03/21/21 01:42 Last Admin: 03/21/21 02:24 Dose: 4 mg Documented by: [id number] Ondansetron HCl (Ondansetron Inj 2 Mg/Ml 2 Ml Vial) 4 mg IV NOW STA Stop: 03/20/21 22:49 Last Admin: 03/21/21 00:18 Dose: 4 mg Documented by: [id number] Ondansetron HCl (Ondansetron 4 Mg Od Tab) Confirm Administered Dose 4 mg .ROUTE .STK-MED ONE Stop: 03/20/21 23:45 Last Admin: 03/20/21 23:46 Dose: 4 mg Documented by: [id number] Ondansetron HCl (Ondansetron 4 Mg Od Tab) 4 mg PO NOW STA Stop: 03/20/21 23:47 Last Admin: 03/20/21 23:47 Dose: Not Given Documented by: [id number] Ondansetron HCl (Ondansetron Inj 2 Mg/Ml 2 Ml Vial) 4 mg IV NOW STA Stop: 03/21/21 01:42 Last Admin: 03/21/21 02:24 Dose: 4 mg Documented by: [id number] Promethazine HCl (Promethazine 12.5 Mg/50.5 Ml Nss) Confirm Administered Dose 12.5 mg IV .STK-MED ONE Stop: 03/21/21 03:48 Last Admin: 03/21/21 03:52 Dose: Not Given Documented by: [id number] Imaging Data Radiologist's Impression: Chest X-Ray 03/20/21 22:46 SINGLE VIEW CHEST CLINICAL HISTORY: Generalized abdominal pain. FINDINGS: An AP, portable, upright chest radiograph is compared to study dated 06/04/2020. The examination is degraded by portable technique and patient rotation. A 2-lead cardiac pacemaker is unchanged in position. There is evidence of previous aortic valve surgery. The heart is enlarged noting atherosclerotic calcification of the thoracic aorta. The pulmonary vasculature is noncongested. There are calcified hilar lymph nodes. Chronic interstitial thickening is similar to previous. There are small pleural effusions with bibasilar atelectasis. No pneumothorax is seen. The skeletal structures are osteopenic. The bony thorax is grossly intact. Degenerative change is seen t hroughout the thoracic spine. IMPRESSION: 1. Cardiomegaly and cardiac pacemaker. There is no radiographic evidence of congestive failure. 2. Small pleural effusions with bibasilar atelectasis. ACT 112: Negative or not required by law. Electronically signed by: Jordi Parrish M.D. 03/21/2021 7:40 AM Abdomen/Pelvis CT 03/20/21 22:[address] WITHOUT CONTRAST CT DOSE: 330.26 mGy.cm HISTORY: Acute nausea and vomiting with left lower quadrant abdominal pain vomiting, lower left abd pain TECHNIQUE: Multiaxial CT images of the abdomen and pelvis were performed without contrast. A dose lowering technique was utilized adhering to the principles of ALARA. COMPARISON STUDY: KUB of same day, CT abdomen and pelvis 06/06/2020 FINDINGS: Moderate cardiomegaly with cardiac pacer. Extensive coronary artery calcifications. Aortic valvular endograft. Small right and trace left pleural effusions. Left pleural calcifications are redemonstrated. Dependent subsegmental bibasilar densities suggest atelectasis. There are a few calcified granulomata noted within the lung bases. 5 mm groundglass nodular focus of the lateral segment right middle lobe is unchanged. Mild intralobular septal thickening likely reflects a component of pulmonary edema. No pneumatosis or pneumoperitoneum. Calcified granuloma of the spleen. Atrophic pancreas. Unremarkable adrenal glands. Distended gallbladder with mild layering cholelithiasis. Scattered calcified granulomata of the liver. Hepatic steatosis. Mild cortical thinning of the kidneys. 4 mm nonobstructing calculus of the inferior pole left kidney. 2.0 cm hypodense lesion of the lateral interpolar left kidney is unchanged suggestive of a probable cyst. Partial distention of the urinary bladder. Atherosclerotic plaque of the abdominal aorta without aneurysm. No adenopathy. Fluid distended distal esophagus with mild periesophageal edema and stranding. The stomach is markedly distended and is fluid-filled and debris-filled. The duodenum is also distended demonstrates periduodenal stranding and trace free fluid. There is abrupt narrowing at the third portion of the duodenum which in retrospect was also present on the prior study. No obstructing mass identified. Colonic diverticulosis. Moderate fecal retention. The appendix is not definitively seen. No secondary signs of acute appendicitis. Mild generalized body wall edema. Degenerative changes of the spine, pelvis and hips. Numerous chronic compression deformities of the thoracolumbar spine with L2 and L5 kyphoplasty. IMPRESSION: 1. Distended fluid-filled distal esophagus with distended stomach and duodenum. There is abrupt transitioning at the third portion of the duodenum with findings compatible with gastric outlet obstruction. No obstructing lesion identified. Mild narrowing at the third portion of the duodenum was also present on the study from 06/06/2020. Findings should be correlated with clinical history to exclude SMA syndrome. 2. Nonobstructing left nephrolithiasis. 3. Small right and trace left pleural effusions are unchanged along with chronic left-sided pleural thickening and pleural calcifications. 4. Distended gallbladder with cholelithiasis. 5. Trace upper abdominal ascites is likely reactive. 6. Additional findings as above. ACT 112: Negative or not required by law. The above report was generated using voice recognition software. It may contain grammatical, syntax or spelling errors. Electronically signed by: Pedro Garcia M.D. 03/21/2021 8:24 AM KUB X-Ray 03/21/21 02:37 KUB CLINICAL HISTORY: Enteric tube placement. FINDINGS: An AP supine view of the lower chest and upper abdomen is correlated with abdominal CT dated 03/21/2021. An enteric tube is coiled in the distal esophagus. There is no evidence of bowel obstruction. Small pleural effusions are identified. The heart is enlarged and a cardiac pacemaker is in place. The skeletal structures are osteopenic with compression deformities and vertebroplasty change seen in the lumbar spine. IMPRESSION: 1. An enteric tube is coiled in the distal esophagus. 2. There is no evidence of bowel obstruction. Electronically signed by: Jordi Parrish M.D. 03/21/2021 7:43 AM Discharge Plan Visit Data Chief Complaint: Abdominal Pain Stated Complaint: ABDOMINAL PAIN ED Provider: Jordi Martinez Discharge Problem: Acute pancreatitis, Gastric outlet obstruction, Vomiting, Left sided abdominal pain Patient Disposition: Admitted As Inpatient Condition: Fair Discharge Instructions Interventions: ED Discharge Assessment Last Done: 03/21/21 04:33
[2021-03-21] MEDS ORDERED: PROMETHAZINE HCL 12.5 MG in SODIUM CHLORIDE 0.9% 50 ML IV PRN (03:13)
--- NOTE | 2021-03-21 03:38 | History & Physical Report ---
Date of Service March 21, 2021 Assessment & Plan (1) Small bowel obstruction: Plan: Mrs. Meehan is an 86 yo woman with a history of high grade gastric outlet obstruction who presented to [facility] for acute onset abdominal pain and vomiting. - CT abdomen showing fluid distention of esophagus, stomach and proximal duodenal transition; suspicion of external compression of SMA (per STATRAD); however previous imaging studies have showed no evidence of SMA syndrome - recurrent nature of this issue is suggestive of a mechanical origin (which she may be pre-disposed to due to underlying stenosis of the small bowel secondary to adhesions from multiple prior surgeries) - [facility] [place] consulted - NG tube in place - continuous suction in ED, transition to low-intermittent - NPO - famotidine 20mg IV q12 (2) Pancreatitis: Plan: - lipase elevated to 5489 - NPO - gentle IVF - NSS at 60mls/hr, limit 1 bag (patient went into pulmonary edema on previous admissions) - IV Tylenol for pain, Zofran for nausea - suspect related to obstructive process of small bowel >> versus adverse effect of mercaptopurine - no etoh intake, normal Ca level, history of normal triglyceride levels; no known pancreatic structural abnormalities (organ noted to be atrophic on previous scans) (3) Aortic stenosis: Plan: - s/p TAVR (4) Elevated INR: Plan: - INR at 3.3, supratherapeutic - goal 2.0-2.5 - hold Coumadin - recheck INR in AM (5) Atrial fibrillation: Plan: - permanent - on chronic anticoag with coumadin - rate control with diltiazem and metoprolol; hold while NPO (6) CHF (congestive heart failure): Plan: - chronic - hold home metoprolol while NPO - hold lasix while NPO - gentle IV fluids as above (7) Ulcerative colitis: Plan: - continue mercaptopurine and sulfasalazine DVT ppx: on coumadin Diet: NPO Dispo: Med/Surg Code: DNR/DNI, I discussed with patient History of Present Illness Primary Care Provider: Ole Spangler MD Mrs. Meehan is an 86 yo woman who presented to the [facility] ED for evaluation of acute onset abdominal pain. It is localized to the epigastrium and RUQ. It started at about 7pm on 03/20/21 after having dinner at a friend's house. She thinks she may have over-ate. She endorses associated vomiting - but no diarrhea or fevers. Of note, she has been admitted in the past for high grade bowel obstructions and pancreatitis - initially thought to be due to SMA syndrome, however abdominal CT done on 06/03/20 showed no implication of SMA or external compression by other structures. More recently, she had a CTA of the abdomen and pelvis in the [facility] in 12/2020 as part of her TAVR pre-operative evaluation, which showed no significant abnormalities. She has been evaluated by [facility] for this issue in the past. In 2019 she underwent an upper endoscopy to the jejunum during which biopsies were obtained of the stomach and duodenum - no extrinsic obstruction was noted; pathology returned showing chronic gastritis. She does have a history of multiple surgeries to the abdomen (appendectomy, hiatal hernia repair, uterine mass resection). She denies any etoh intake. In the ED, she was febrile, not tachycardiac. Her WBC, Hgb and platelets were WNL. INR was elevated to 3.7. CMP was normal. Trop was undetectable. Lipase elevated to 5498. UA showing trace LE, neg nitrite and neg bacteria. CXR showing no acute process in the chest. CT of abdomen and pelvis showing fluid distention of esophagus, stomach and proximal duodenal transition, raising the possibility of external compression by the SMA; small b/l pleural effusions; a small non- obstructing L kidney stone. An NG tube was placed and KUB confirmed proper positioning. It was turned to continuous suction. She was given zofran, morphine and 500cc of NSS. Allergies Allergy/AdvReac Type Severity Reaction Status Date / Time Penicillins Allergy Severe THROAT Verified 03/20/21 23:43 SWELLS, PASSES OUT aspirin Allergy Intermediate WELTS Verified 03/20/21 23:43 AROUND EYES [place] And Derivatives Allergy Mild Runny/stuffy Verified 03/20/21 23:43 nose mayonnaise Allergy Unknown Verified 03/20/21 23:43 chicken derived AdvReac Intermediate DIARRHEA Verified 03/20/21 23:43 chocolate flavor AdvReac Intermediate DIARRHEA Verified 03/20/21 23:43 lactose AdvReac Intermediate GI upset Verified 03/20/21 23:43 grass pollen-perennial rye, AdvReac Mild RUNNY Verified 03/20/21 23:43 standar NOSE/SINUS ISSUES mushroom AdvReac Mild GI SYMPTOMS Verified 03/20/21 23:43 pollen extracts AdvReac Mild RUNNY Verified 03/20/21 23:43 NOSE/SINUS ISSUES soy AdvReac Mild GI SYMPTOMS Verified 03/20/21 23:43 Rskdsba-PLF-CyG Reductase AdvReac Mild DID NOT Verified 03/20/21 23:43 Inhibitor WORK [Jeaysee-Jbi-Nlc Reductase Inhibitor] lorazepam AdvReac Hallucinati Verified 03/20/21 23:43 ng Home Medications Medication Instructions Recorded Confirmed Type walker #1 ea 03/11/19 03/20/21 Rx calcium carb,cit ER 600 mg-vit D3 1 tab PO BID tab 07/05/20 03/20/21 History 12.5 mcg (500 unit) tablet,ext.rel (Citracal-D3 Slow Release) cholecalciferol (vitamin D3) 50 2,000 unit PO DAILY@1200 cap 07/05/20 03/20/21 History mcg (2,000 unit) capsule (Vitamin D3) multivitamin with minerals-folic 1 tab PO DAILY@1200 tab 07/05/20 03/20/21 History acid 200 mcg chewable tablet (Adult One Daily Gummies) clonidine HCl 0.1 mg tablet 0.1 mg PO BID 11/23/20 03/20/21 History clopidogrel 75 mg tablet (Plavix) 75 mg PO DAILY@1200 11/23/20 03/20/21 History cyclosporine 0.05 % eye drops in a 1 drp OPB Q12H 11/23/20 03/20/21 History dropperette (Restasis) diltiazem HCl 360 mg 360 mg PO DAILY@1200 11/23/20 03/20/21 History capsule,extended release 24 hr (Cardizem CD) loratadine 10 mg tablet (Claritin) 10 mg PO HS PRN 11/23/20 03/20/21 History pantoprazole 40 mg tablet,delayed 40 mg PO BIDM 11/23/20 03/20/21 History release (Protonix) rosuvastatin 5 mg tablet 5 mg PO QDD 11/23/20 03/20/21 History sulfasalazine 500 mg tablet 1,000 mg PO BID 11/23/20 03/20/21 History vitamins A,C,M-jtok-nqqvqk 7,160 1 tab PO BID 11/23/20 03/20/21 History unit-113 mg-100 unit tablet (PreserVision AREDS) trazodone 50 mg tablet 25 mg PO HS #45 tab 12/31/20 03/20/21 Rx warfarin 3 mg tablet See Rx Instructions PO UD tab 01/13/21 03/20/21 History denosumab 60 mg/mL subcutaneous 60 mg SUBCUT .COMPLEX ml 02/25/21 03/20/21 History syringe (Prolia) metoprolol succinate 100 mg 200 mg PO DAILY@1200 #180 tab 02/25/21 03/20/21 Rx tablet,extended release 24 hr famotidine 20 mg tablet 20 mg PO HS 03/20/21 03/20/21 History furosemide 20 mg tablet (Lasix) 20 mg PO DAILY 03/20/21 03/20/21 History mercaptopurine 50 mg tablet 75 mg PO QPM 03/20/21 03/20/21 History potassium chloride 10 mEq 10 meq PO DAILY 03/20/21 03/20/21 History capsule,extended release tramadol 50 mg tablet 50 mg PO Q8 PRN 03/20/21 03/20/21 History Past Med/Surg History Medical History Aortic stenosis Breast cancer (08/27/15) "Abnormal right breast mammogram 08/01/2015 Status post biopsy 08/27/2015 10:00 lesion invasive ductal carcinoma, grade 1 Estrogen receptor positive, progesterone receptor negative, HER-2/quique negative 11:00 lesion invasive lobular carcinoma, grade 1 Estrogen receptor positive, progesterone receptor positive, HER-2/quique negative Status post lumpectomy and sentinel lymph node biopsy 09/27/2015 Lobular and ductal carcinoma Stage pT1b pN1a M0 Radiation therapy stopped 01/26/2016 received 3780 cGy. Treatments stopped early due to admission for compression fracture and inability to tolerate being in the treatment position" On 02/21/16 15:06 Frances Hogan wrote "Abnormal right breast mammogram 08/01/2015 Status post biopsy 08/27/2015 10:00 lesion invasive ductal carcinoma, grade 1 Estrogen receptor positive, progesterone receptor negative, HER-2/quique negative 11:00 lesion invasive lobular carcinoma, grade 1 Estrogen receptor positive, progesterone receptor positive, HER-2/quique negat jaguar Status post lumpectomy and sentinel lymph node biopsy 09/27/2015 Lobular and ductal carcinoma Stage pT1b pN1a M0" On 02/21/16 15:06 Frances Hogan wrote "Abnormal right breast mammogram 08/01/2015 Status post biopsy 08/27/2015 10:00 lesion invasive ductal carcinoma, grade 1 Estrogen receptor positive, progesterone receptor negative, HER-2/quique negative 11:00 lesion invasive lobular carcinoma, grade 1 Estrogen receptor positive, progesterone receptor positive, HER-2/quique negative Status post lumpectomy and sentinel lymph node biopsy 09/27/2015 Lobular and ductal carcinoma Stage pT1b pN1a M0 Status post radiation therapy, treatment stopped 01/26/2016 received 3780 cGy " On 10/14/15 13:28 Frances Hogan wrote "Abnormal right breast mammogram 08/01/2015 Status post biopsy 08/27/2015 10:00 lesion invasive ductal carcinoma, grade 1 Estrogen receptor positive, progesterone receptor negative, HER-2/quique negative 11:00 lesion invasive lobular carcinoma, grade 1 Estrogen receptor positive, progesterone receptor positive, HER-2/quique negative Status post lumpectomy and sentinel lymph node biopsy 09/27/2015 Lobular and ductal carcinoma Stage pT1b pN1a M0 " Breast cancer RT BREAST (SX AND RADIATION) CHF (congestive heart failure) Compression fracture of lumbar vertebra Facial basal cell cancer NOSE GERD (gastroesophageal reflux disease) HLD (hyperlipidemia) HTN (hypertension) Hypertensive urgency Incarcerated paraesophageal hernia Lower extremity pain, left On anticoagulant therapy warfarin/plavix daily Osteoarthritis 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" (FOLLOWED BY [facility]) Paraesophageal hiatal hernia SSS (sick sinus syndrome) (02/18/14) Stroke OVER 20 YEARS AGO (NO CURRENT PROBLEMS) Ulcerative colitis Ulcerative colitis "REMISSION" Unintentional weight loss per pt reason for colonoscopy Surgical History H/O total hysterectomy UTERINE MASS REMOVED (BENIGN) History of appendectomy History of cataract surgery History of colonoscopy History of esophagogastroduodenoscopy (EGD) recently had 03/2019 @ [facility] per pt they found 2 ulcers-1 in esophagus and 1 in stomach History of herniorrhaphy History of kyphoplasty History of tonsillectomy and adenoidectomy History of tooth extraction Hx of lumpectomy RT Family History Other Benign essential HTN Coronary heart disease PVD (peripheral vascular disease) Stroke Denies family history of Ovarian cancer Prostate cancer Breast cancer Lung cancer Colorectal cancer Social History Smoking Status: Never smoker Second Hand Exposure: No; Do You Dip or Chew Tobacco: No; Tobacco Cessation Education Requested by Patient: No Hx Alcohol Use: Yes Alcohol type: wine Alcohol Intake Frequency: Monthly or Less Hx Substance Use: No Preferred Language: [place] Communication Ability: Effective Visual Impairment: Limited Hearing Ability: Normal [employer] Required: No Beliefs That Will Affect Care: None marital status: Single Current Living Situation: Personal Care Facility Current Living Situation Comment: [facility] current occupational status: retired How many Children do You have: 1 Other Information That Helps Us Care for You: No Feels Safe at Home: Yes Safety Concerns: Feels Safe At This Time Childhood Exposure to Second-Hand Smoke: No caffeine: Yes (drinks soda ) Dental Care, Regularly: Yes Physical Activity Frequency: Daily Physical Activity Frequency Comment: walks daily Seatbelt Use: always Sunscreen Use: No Assistive Devices: Walker Review of Systems Review of Systems: All systems reviewed & are unremarkable except as noted in HPI & below Physical Exam Constitutional: WD/WN, vitals as above cooperative Eyes: + anicteric sclerae ENMT: external ear and nose normal, oropharynx normal Neck: + tracheal deviation Respiratory: normal respiratory effort, lungs clear to auscultation Cardiovascular: Rate/Rhythm: regular rate and + irregularly irregular Heart Sounds: normal S1 and normal S2 Extremities: + pedal edema (trace) Chest (Breasts): Chest: + pacemaker Gastrointestinal (Abdomen): Inspection/Auscultation: + abdomen distended and normal bowel sounds Percussion/Palpation: + abdomen tender and + abdomen firm Musculoskeletal: Head/Neck/Chest: normocephalic and head atraumatic Skin: no rashes, warm and dry Psychiatric: A+Ox3, euthymic affect Results & Data Results & Data ([facility]) Vital Signs (Past 12 Hours) Vital Signs Temp Pulse Resp BP Pulse Ox 03/20/21 22:24 37.1 C 89 18 169/82 H 98 Supervising Physician Co-Signing Physician Notes Attending addendum: I have physically seen this patient, have supervised the medical residents activities, and agree with the H&P unless as otherwise noted. Assessment and Plan: Duodenal obstruction- Repeat of symptoms from March 2019 and May 2020, at which time SMA syndrome was considered, and is again suspected NPO NG tube to low intermittent suction Famotidine 20 mg IV every 12 hours Zofran 4 mg IV every 6 hours as needed Phenergan 12.5 mg IV every 6 hours as needed NSS 60 mils per hour x1 L Acetaminophen 1 g IV every 8 hours as needed mild pain or fever Pancreatitis- Lipase upon admission 5489 Follow serially No abnormality noted on CT Atrial fibrillation/aortic stenosis status post TAVR/CHF/hypertension- While patient is n.p.o., hold all medications: Warfarin, metoprolol, Lasix, diltiazem and metoprolol Lopressor 5 mg IV every 4 hours as needed heart rate greater than 110 NSS at 60 mils per hour x1 L Remaining orders and notations as noted Resident Activity Tracking Resident Involvement: Resident Care Provided Care Provided: Adult Hospital Medicine
[2021-03-21] MEDS ORDERED: PROMETHAZINE 12.5 MG/50.5 ML NSS IV ONE (03:47)
[2021-03-21] MEDS ORDERED: ACETAMINOPHEN 1,000 MG/100 ML VIAL IV PRN (05:03)
[2021-03-21] MEDS ORDERED: ONDANSETRON INJ 2 MG/ML 2 ML VIAL IV PRN (05:03)
[2021-03-21] MEDS: SODIUM CHLORIDE 0.9% 1000ML 1,000 ML IV SCH ×2 (05:36→21:59)
--- NOTE | 2021-03-21 07:27 | XRay Report ---
SINGLE VIEW CHEST CLINICAL HISTORY: Enteric tube placement FINDINGS: An AP, portable, upright chest radiograph is compared to study dated 03/20/2021 and correla jan with chest CT dated 11/10/2015. An enteric tube has been placed. The tip projects below the diaphr agm over the proximal stomach. The side holes project at the level of the diaphragm. A 2-lead cardiac pacemaker is unchanged in position. The heart is mildly enlarged noting atherosclerotic calcificatio n of the thoracic aorta. The pulmonary vasculature is noncongested. Chronic interstitial thickening i s similar to previous. A small left pleural effusion persists with left basilar atelectasis. No airsp jessica consolidation is seen typical for pneumonia. No pneumothorax is seen. The skeletal structures are osteopenic. Degenerative changes noted throughout the thoracic spine. There is evidence of previous vertebroplasty in the lower thoracic/upper lumbar region. IMPRESSION: 1. An enteric tube has been placed as above. The side holes project at the level of the diaphragm and this should likely be advanced. 2. Cardiomegaly and cardiac pacemaker with no radiographic evidence of congestive failure. 3. A small left pleural effusion is unchanged. ACT 112: Negative or not required by law. Electronically signed by: Jordi Parrish M.D. 03/21/2021 7:26 AM
--- NOTE | 2021-03-21 07:41 | XRay Report ---
SINGLE VIEW CHEST CLINICAL HISTORY: Generalized abdominal pain. FINDINGS: An AP, portable, upright chest radiograph is compared to study dated 06/04/2020. The examinat ion is degraded by portable technique and patient rotation. A 2-lead cardiac pacemaker is unchanged in position. There is evidence of previous aortic valve surgery. The heart is enlarged noting athero sclerotic calcification of the thoracic aorta. The pulmonary vasculature is noncongested. There are c alcified hilar lymph nodes. Chronic interstitial thickening is similar to previous. There are small p leural effusions with bibasilar atelectasis. No pneumothorax is seen. The skeletal structures are ost eopenic. The bony thorax is grossly intact. Degenerative change is seen throughout the thoracic spine . IMPRESSION: 1. Cardiomegaly and cardiac pacemaker. There is no radiographic evidence of congestive failure. 2. Small pleural effusions with bibasilar atelectasis. ACT 112: Negative or not required by law. Electronically signed by: Jordi Parrish M.D. 03/21/2021 7:40 AM
--- NOTE | 2021-03-21 07:44 | XRay Report ---
KUB CLINICAL HISTORY: Enteric tube placement. FINDINGS: An AP supine view of the lower chest and upper abdomen is correlated with abdominal CT date d 03/21/2021. An enteric tube is coiled in the distal esophagus. There is no evidence of bowel obstru ction. Small pleural effusions are identified. The heart is enlarged and a cardiac pacemaker is in pl jessica. The skeletal structures are osteopenic with compression deformities and vertebroplasty change se en in the lumbar spine. IMPRESSION: 1. An enteric tube is coiled in the distal esophagus. 2. There is no evidence of bowel obstruction. Electronically signed by: Jordi Parrish M.D. 03/21/2021 7:43 AM
[2021-03-21] MEDS: RESTASIS~ORDER AWAITING ACTION SCH ×3 (07:57→22:02)
[2021-03-21] MEDS: CEROVITE ADV FORMULA TAB PO SCH ×2 (08:02→20:25)
[2021-03-21] MEDS: sulfaSALAzine 500 MG TABLET PO SCH ×2 (08:02→20:25)
[2021-03-21] MEDS: FAMOTIDINE 20 MG in SYRINGE 3 ML IV SCH ×2 (08:02→20:25)
--- NOTE | 2021-03-21 08:12 | Hospitalist Progress Note ---
Date of Service March 21, 2021 Assessment & Plan (1) Small bowel obstruction: Plan: Mrs. Meehan is an 86 yo woman with a history of high grade gastric outlet obstruction who presented to [facility] for acute onset abdominal pain and vomiting. Small bowel obstruction: - CT abdomen showing fluid distention of esophagus, stomach and proximal duodenal transition; suspicion of external compression of SMA (per STATRAD); however previous imaging studies have showed no evidence of SMA syndrome - NG tube in place -- low-intermittent suction - NPO - Famotidine 20mg IV q12h - Gastro consult - Maintain n.p.o., NG tube with decompression, IV fluids, Zofran as needed, and other supportive care measures. - Patient will need EGD enteroscopy in the OR but would recommend at least 24 hours of NGT decompression prior to procedure. - Tentative plan for tomorrow with Dr. Gamino. Pancreatitis: - lipase elevated to 5489 - NPO - continue gentle IVF -- monitor fluid status in the setting of overload in prior admissions - IV Tylenol for pain, Zofran for nausea - suspect related to obstructive process of small bowel >> versus adverse effect of mercaptopurine - no etoh intake, normal Ca level, history of normal triglyceride levels; no known pancreatic structural abnormalities (organ noted to be atrophic on previous scans) Aortic stenosis: - s/p TAVR Elevated INR: - INR supratherapeutic -- 4.1 today - goal 2.0-2.5 - hold Coumadin - recheck INR in AM Atrial fibrillation: - permanent - on chronic anticoag with coumadin - rate control with diltiazem and metoprolol; hold while NPO CHF (congestive heart failure): - chronic - hold home metoprolol while NPO - hold lasix while NPO - gentle IV fluids as above Ulcerative colitis: - continue mercaptopurine and sulfasalazine DVT ppx: on coumadin (holding due to elevated INR) Diet: NPO Dispo: Med/Surg Code: DNR/DNI (2) Pancreatitis: (3) Elevated INR: (4) Atrial fibrillation: (5) CHF (congestive heart failure): (6) Ulcerative colitis: Admission and Anticipated Discharge Date Admission Date: March 21, 2021 Supervising Physician Co-Signing Physician Notes I personally examined the patient and verified all fermin points of history and exam, discussed case, and agree with decision making with Dr Garsia. Seen in follow-up from early a.m. admission. Belly feeling significantly better, much less pain and distention. GI input appreciated. Vitals noted, in general she is awake and alert pleasant no distress. HEENT normocephalic atraumatic mucous membranes moist. Breathing unlabored no accessory muscle use good effort. Skin shows no rashes no pallor or icterus. Neuro without focal deficits. Abdomen soft mildly distended nontender no masses organomegaly. IV in right foot. SBOadhesional versus less likely SMAcontinue NG drainage and supportive care, improving. Appreciate GI input for further work-up as it relates to SMA. Otherwise as above Subjective Patient seen at bedside this AM. No acute events overnight. She mentions feeling much better since her admission. Abd pain significantly reduced, nausea and vomiting currently resolved. Denies fever, chills, CP, palp, SOB, swelling. Review of Systems Review of Systems: per subjective Physical Exam Physical Exam: GENERAL: A&Ox3. NAD. HEENT: PERRL, EOMI. Moist mucous membranes. NECK: No JVD. No lymphadenopathy. CHEST/LUNGS: CTAB A/P. No crackles, wheezes, rales, rhonchi. HEART: RRR. No m/g/r. No carotid bruits. ABDOMEN: NT/ND, soft. BS+ x4 EXTREMITIES: No cyanosis, no clubbing, no edema SKIN: Warm and dry. No rashes or lesions. Results & Data Results & Data ([facility]) Vital Signs (Past 12 Hours) Vital Signs Temp Pulse Pulse Resp BP BP Pulse Ox 03/21/21 07:50 37.0 C 84 18 169/65 H 95 03/21/21 04:55 36.7 C 97 H 16 153/81 H 93 03/21/21 04:00 95 H 20 160/82 H 98 03/21/21 03:30 92 H 23 03/21/21 03:01 15 159/75 H 03/21/21 02:30 86 30 H 03/21/21 02:00 89 20 182/92 H 03/21/21 01:30 84 21 159/75 H 03/21/21 01:00 84 19 03/21/21 00:52 99 H 23 03/21/21 00:18 76 03/20/21 23:00 82 20 10/24/21 22:37 93 H 19 93 03/20/21 22:24 37.1 C 89 18 169/82 H 98 Resident Activity Tracking Resident Involvement: Resident Care Provided Care Provided: Adult Hospital Medicine
--- NOTE | 2021-03-21 08:25 | CT Scan Report ---
ABDOMEN AND PELVIS CT WITHOUT CONTRAST CT DOSE: 330.26 mGy.cm HISTORY: Acute nausea and vomiting with left lower quadrant abdominal pain vomiting, lower left abd pain TECHNIQUE: Multiaxial CT images of the abdomen and pelvis were performed without contrast. A dose lo wering technique was utilized adhering to the principles of ALARA. COMPARISON STUDY: KUB of same day, CT abdomen and pelvis 06/06/2020 FINDINGS: Moderate cardiomegaly with cardiac pacer. Extensive coronary artery calcifications. Aortic valvular endograft. Small right and trace left pleural effusions. Left pleural calcifications are red emonstrated. Dependent subsegmental bibasilar densities suggest atelectasis. There are a few calcifie d granulomata noted within the lung bases. 5 mm groundglass nodular focus of the lateral segment righ t middle lobe is unchanged. Mild intralobular septal thickening likely reflects a component of pulmon ernst edema. No pneumatosis or pneumoperitoneum. Calcified granuloma of the spleen. Atrophic pancreas. Unremarkable adrenal glands. Distended gallblad jose with mild layering cholelithiasis. Scattered calcified granulomata of the liver. Hepatic steatosi s. Mild cortical thinning of the kidneys. 4 mm nonobstructing calculus of the inferior pole left kidney. 2.0 cm hypodense lesion of the lateral interpolar left kidney is unchanged suggestive of a probable cyst. Partial distention of the urinary bladder. 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 No adenopathy. Fluid distended distal esophagus with mild periesophageal edema and stranding. The stomach is markedl y distended and is fluid-filled and debris-filled. The duodenum is also distended demonstrates peridu odenal stranding and trace free fluid. There is abrupt narrowing at the third portion of the duodenum which in retrospect was also present on the prior study. No obstructing mass identified. Colonic div erticulosis. Moderate fecal retention. The appendix is not definitively seen. No secondary signs of a cute appendicitis. Mild generalized body wall edema. Degenerative changes of the spine, pelvis and hi ps. Numerous chronic compression deformities of the thoracolumbar spine with L2 and L5 kyphoplasty. IMPRESSION: 1. Distended fluid-filled distal esophagus with distended stomach and duodenum. There is abrupt trans itioning at the third portion of the duodenum with findings compatible with gastric outlet obstructio n. No obstructing lesion identified. Mild narrowing at the third portion of the duodenum was also pre sent on the study from 06/06/2020. Findings should be correlated with clinical history to exclude SMA syndrome. 2. Nonobstructing left nephrolithiasis. 3. Small right and trace left pleural effusions are unchanged along with chronic left-sided pleural t hickening and pleural calcifications. 4. Distended gallbladder with cholelithiasis. 5. Trace upper abdominal ascites is likely reactive. 6. Additional findings as above. ACT 112: Negative or not required by law. The above report was generated using voice recognition software. It may contain grammatical, syntax o r spelling errors. Electronically signed by: Pedro Garcia M.D. 03/21/2021 8:24 AM
[2021-03-21] MEDS ORDERED: MoRPHine SULFATE 4 MG/ML 1 ML CARP\\VIAL IV PRN (08:43)
[2021-03-21 08:50] LABS: INR 4.1 (0.9-1.1); Prothrombin Time 37.1 Seconds (9.0-12.0)
--- NOTE | 2021-03-21 09:08 | Gastrointestinal Consultation ---
Date of Consultation March 21, 2021 Assessment & Plan (1) Intermittent small bowel obstruction: The patient presented to the emergency department with complaints of abdominal pain nausea and some vomiting. CT of the abdomen and pelvis demonstrated findings consistent with gastric outlet obstruction. ? SMA syndrome. Findings were also present on May 2020 exam. Lipase 5498. Last occurrence in May 2020 she had spontaneous resolution of obstruction. Maintain n.p.o., NG tube with decompression, IV fluids, Zofran as needed, and other supportive care measures. Patient will need EGD enteroscopy in the OR but would recommend at least 24 hours of NGT decompression prior to procedure. Tentative plan for tomorrow with Dr. Gamino. Majority of patient care has been [place] [facility] Will need to ensure patient is agreeable to plan prior to proceeding. Dr. Gamino will round later today. Please refer to supervising physician addendum for further recommendations. Supervising Physician Co-Signing Physician Notes I interviewed and examined the patient and reviewed the medical record, with the following observations: Subjective: The patient states that she was eating without difficulty and had no abdominal pain until after dinner last night. 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 At dinner last night she deviated from her usual diet and had a handful of pistachio nuts, and some roast vegetables (onions and carrots). There has been gradual significant weight loss over a period of >10 years. In the distant past, she states her weight reached 220 pounds. 10 years ago, she thinks she weighed around 180 pounds. Over the past 1 year, she has lost weight from 148 pounds to approximately 140 pounds. The patient related a history of paraesophageal hiatal hernia with dysphagia and hiatal hernia repair with fundoplication. She has also had appendectomy in the distant past Recent (January) TAVR Physical Examination: The abdominal examination is entirely benign with no distension, normal percussion, only mild LLQ tenderness without guarding or rebound tenderness, no succussion splash Chart Review: CTAP not consistent with gastric outlet obstruction. CTAP is most consistent with duodenal obstruction at the level of the SMA This case was reviewed with the advanced practice provider and with the consulting radiologist. 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 Another possibility is duodenal obstruction related to adhesions from previous surgery. She is not toxic and urgent surgery is not indicated. The management is gastric decompression with NG aspiration (patient states that 3 canisters have already been aspirated.) This should continue overnight and I recommend repeat CTAP with IV contrast in the AM to better define the etiology of the obstruction (contrast enhancement of the SMA) Risk/benefit ratio for endoscopy is not favorable at this time, due to risk of vomiting and aspiration of retained gastric contents. She would need endotracheal intubation to protect the airway and the case would need to be done in the OR. The patient is at least ASA 3 for endoscopy and may be ASA 4. I favor noninvasive evaluation with repeat CTAP with IV contrast in the morning. The patient has a proximal small bowel obstruction, and general surgery should be consulted for their opinion and assistance. History of Present Illness Attending Physician: Pee Valencia DO History of Present Illness The patient is an 86-year-old female with a past medical history to include cerebral artery occlusion with cerebral infarction, chronic lower back pain, di astolic CHF, left atrial enlargement, macrocytosis, mitral regurgitation, TAVR 01/2021, paraesophageal hiatal hernia, vitamin D deficiency, breast cancer, L5 compression fracture, thoracic vertebral compression fracture, hypertension, status post cardiac pacemaker, ulcerative colitis, gastric ulcer, sarcoidosis, hyperlipidemia, GERD, aortic stenosis, atrial fibrillation and sick sinus syndrome that presented to the ED with c/o abdominal pain and nausea that began around 7pm 03/20/2021 after eating dinner with friends. CT A/P demonstrated distended fluid-filled distal esophagus with distended stomach and duodenum with an abrupt transitioning at the third portion of the duodenum with findings compatible with gastric outlet obstruction without obstructing lesion identified. Mild narrowing at the third portion of the duodenum was also present on the study 06/06/2020. Patient subsequently admitted and GI consulted for further management. The patient follows with Dr. 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 Denies bowel surgeries for UC. Has had previous difficulty with steroids. Patient is unsure when last colonoscopy was - with record review appears it was 02/2009 although record is unavailable for review. EGD in 2014 demonstrated monilial esophagitis, hiatal hernia. History of fundoplication surgery in 2016 with complications of an esophageal tear. 03/[address] [facility] due to critical aortic stenosis demonstrated gastric ulcer with no stigmata and normal duodenum and esophagus. On exam/interview today, the patient reports that she began experiencing abdominal pain after eating supper with friends on Sunday around 7 PM. She began experiencing a sharp mid left-sided abdominal pain within 15 minutes began experiencing nausea with small amounts of emesis. States she tried Gas-X at a suggestion from her friend. Began coughing and spitting up foamy phlegm secretions. Denies any food being brought up. States abdominal pain just continued to worsen which eventually brought her to the emergency department. Pain was rated around an 8 or 9 out of 10. This morning she states her abdominal pain is improved. Continues to be left-sided but more lower now. Rates the pain a 6 out of 10. She does have a right sided NG tube into compression. There is a modest amount of drainage in the collection container. She reports she feels okay this morning. Denies any melena or hematochezia. Reports bowel movement last was yesterday morning x2. She states the stools were normal in appearance and quantity. She is on Coumadin and underwent TAVR at [facility] 01/20[facility]. Afebrile. She is a lifetime nonsmoker. Drinks alcohol about 1-2 times per month. Denies recreational drug use including marijuana. 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 She is unmarried and has no children. One of her nephews is her POA. Allergies Allergy/AdvReac Type Severity Reaction Status Date / Time Penicillins Allergy Severe THROAT Verified 03/20/21 23:43 SWELLS, PASSES OUT aspirin Allergy Intermediate WELTS Verified 03/20/21 23:43 AROUND EYES [place] And Derivatives Allergy Mild Runny/stuffy Verified 03/20/21 23:43 nose mayonnaise Allergy Unknown Verified 03/20/21 23:43 chicken derived AdvReac Intermediate DIARRHEA Verified 03/20/21 23:43 chocolate flavor AdvReac Intermediate DIARRHEA Verified 03/20/21 23:43 lactose AdvReac Intermediate GI upset Verified 03/20/21 23:43 grass pollen-perennial rye, AdvReac Mild RUNNY Verified 03/20/21 23:43 standar NOSE/SINUS ISSUES mushroom AdvReac Mild GI SYMPTOMS Verified 03/20/21 23:43 pollen extracts AdvReac Mild RUNNY Verified 03/20/21 23:43 NOSE/SINUS ISSUES soy AdvReac Mild GI SYMPTOMS Verified 03/20/21 23:43 [id number]-[id number]-UgO Reductase AdvReac Mild DID NOT Verified 03/20/21 23:43 Inhibitor WORK [Ynpyrfa-Sdg-Gvj Reductase Inhibitor] lorazepam AdvReac Hallucinati Verified 03/20/21 23:43 ng Home Medications Medication Instructions Recorded Confirmed Type joan #1 ea 03/11/19 03/20/21 Rx calcium carb,cit ER 600 mg-vit D3 1 tab PO BID tab 07/05/20 03/20/21 History 12.5 mcg (500 unit) tablet,ext.rel (Citracal-D3 Slow Release) cholecalciferol (vitamin D3) 50 2,000 unit PO DAILY@1200 cap 07/05/20 03/20/21 History mcg (2,000 unit) capsule (Vitamin D3) multivitamin with minerals-folic 1 tab PO DAILY@1200 tab 07/05/20 03/20/21 History acid 200 mcg chewable tablet (Adult One Daily Gummies) clonidine HCl 0.1 mg tablet 0.1 mg PO BID 11/23/20 03/20/21 History clopidogrel 75 mg tablet (Plavix) 75 mg PO DAILY@1200 11/23/20 03/20/21 History cyclosporine 0.05 % eye drops in a 1 drp OPB Q12H 11/23/20 03/20/21 History dropperette (Restasis) diltiazem HCl 360 mg 360 mg PO DAILY@1200 11/23/20 03/20/21 History capsule,extended release 24 hr (Cardizem CD) loratadine 10 mg tablet (Claritin) 10 mg PO HS PRN 11/23/20 03/20/21 History pantoprazole 40 mg tablet,delayed 40 mg PO BIDM 11/23/20 03/20/21 History release (Protonix) rosuvastatin 5 mg tablet 5 mg PO QDD 11/23/20 03/20/21 History sulfasalazine 500 mg tablet 1,000 mg PO BID 11/23/20 03/20/21 History vitamins A,C,V-lbrx-xyxwzv 7,160 1 tab PO BID 11/23/20 03/20/21 History unit-113 mg-100 unit tablet (PreserVision AREDS) trazodone 50 mg tablet 25 mg PO HS #45 tab 12/31/20 03/20/21 Rx warfarin 3 mg tablet See Rx Instructions PO UD tab 01/13/21 03/20/21 History denosumab 60 mg/mL subcutaneous 60 mg SUBCUT .COMPLEX ml 02/25/21 03/20/21 History syringe (Prolia) metoprolol succinate 100 mg 200 mg PO DAILY@1200 #180 tab 02/25/21 03/20/21 Rx tablet,extended release 24 hr famotidine 20 mg tablet 20 mg PO HS 03/20/21 03/20/21 History furosemide 20 mg tablet (Lasix) 20 mg PO DAILY 03/20/21 03/20/21 History mercaptopurine 50 mg tablet 75 mg PO QPM 03/20/21 03/20/21 History potassium chloride 10 mEq 10 meq PO DAILY 03/20/21 03/20/21 History capsule,extended release tramadol 50 mg tablet 50 mg PO Q8 PRN 03/20/21 03/20/21 History Patient History Medical History (Updated 03/21/21 @ 03:49 by Yecenia Kuo MD) Aortic stenosis Breast cancer (08/27/15) "Abnormal right breast mammogram 08/01/2015 Status post biopsy 08/27/2015 10:00 lesion invasive ductal carcinoma, grade 1 Estrogen receptor positive, progesterone receptor negative, HER-2/quique negative 11:00 lesion invasive lobular carcinoma, grade 1 Estrogen receptor positive, progesterone receptor positive, HER-2/quique negative Status post lumpectomy and sentinel lymph node biopsy 09/27/2015 Lobular and ductal carcinoma Stage pT1b pN1a M0 Radiation therapy stopped 01/26/2016 received 3780 cGy. Treatments stopped early due to admission for compression fracture and inability to tolerate being in the treatment position" On 02/21/16 15:06 Frances Hogan wrote "Abnormal right breast mammogram 08/01/2015 Status post biopsy 08/27/2015 10:00 lesion invasive ductal carcinoma, grade 1 Estrogen receptor positive, progesterone receptor negative, HER-2/quique negative 11:00 lesion invasive lobular carcinoma, grade 1 Estrogen receptor positive, progesterone receptor positive, HER-2/quique negative Status post lumpectomy and sentinel lymph node biopsy 09/27/2015 Lobular and ductal carcinoma Stage pT1b pN1a M0" On 02/21/16 15:06 Frances Hogan wrote "Abnormal right breast mammogram 08/01/2015 Status post biopsy 08/27/2015 10:00 lesion invasive ductal carcinoma, grade 1 Estrogen receptor positive, progesterone receptor negative, HER-2/quique negative 11:00 lesion invasive lobular carcinoma, grade 1 Estrogen receptor positive, progesterone receptor positive, HER-2/quique negative Status post lumpectomy and sentinel lymph node biopsy 09/27/2015 Lobular and ductal carcinoma Stage pT1b pN1a M0 Status post radiation therapy, treatment stopped 01/26/2016 received 3780 cGy " On 10/14/15 13:28 Frances Hogan wrote "Abnormal right breast mammogram 08/01/2015 Status post biopsy 08/27/2015 10:00 lesion invasive ductal carcinoma, grade 1 Estrogen receptor positive, progesterone receptor negative, HER-2/quique negative 11:00 lesion invasive lobular carcinoma, grade 1 Estrogen receptor positive, progesterone receptor positive, HER-2/quique negative Status post lumpectomy and sentinel lymph node biopsy 09/27/2015 Lobular and ductal carcinoma Stage pT1b pN1a M0 " Breast cancer RT BREAST (SX AND RADIATION) CHF (congestive heart failure) Compression fracture of lumbar vertebra Facial basal cell cancer NOSE GERD (gastroesophageal reflux disease) HLD (hyperlipidemia) HTN (hypertension) Hypertensive urgency Incarcerated paraesophageal hernia Lower extremity pain, left On anticoagulant therapy warfarin/plavix daily Osteoarthritis 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" (FOLLOWED BY [facility]) Paraesophageal hiatal hernia SSS (sick sinus syndrome) (02/18/14) Stroke OVER 20 YEARS AGO (NO CURRENT PROBLEMS) Ulcerative colitis Ulcerative colitis "REMISSION" Unintentional weight loss per pt reason for colonoscopy Surgical History H/O total hysterectomy UTERINE MASS REMOVED (BENIGN) History of appendectomy History of cataract surgery History of colonoscopy History of esophagogastroduodenoscopy (EGD) recently had 03/[address] [facility] [place] pt they found 2 ulcers-1 in esophagus and 1 in stomach History of herniorrhaphy History of kyphoplasty History of tonsillectomy and adenoidectomy History of tooth extraction Hx of lumpectomy RT Family History Other Benign essential HTN Coronary heart disease PVD (peripheral vascular disease) Stroke Denies family history of Ovarian cancer Prostate cancer Breast cancer Lung cancer Colorectal cancer Social History Smoking Status: Never smoker Second Hand Exposure: No; Do You Dip or Chew Tobacco: No; Tobacco Cessation Education Requested by Patient: No Hx Alcohol Use: Yes Alcohol type: wine Alcohol Intake Frequency: Monthly or Less Hx Substance Use: No Preferred Language: Azeri Communication Ability: Effective Visual Impairment: Limited Hearing Ability: Normal 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 Required: No Beliefs That Will Affect Care: None marital status: Single Current Living Situation: Personal Care Facility Current Living Situation Comment: [facility] current occupational status: retired How many Children do You have: 1 Other Information That Helps Us Care for You: No Feels Safe at Home: Yes Safety Concerns: Feels Safe At This Time Childhood Exposure to Second-Hand Smoke: No caffeine: Yes (drinks soda ) Dental Care, Regularly: Yes Physical Activity Frequency: Daily Physical Activity Frequency Comment: walks daily Seatbelt Use: always Sunscreen Use: No Assistive Devices: Walker Review of Systems Review of Systems: All systems reviewed & are unremarkable except as noted in Subjective Physical Exam Constitutional: WD/WN, vitals as above Eyes: PERRL, conjunctivae normal, anicteric sclerae Wears corrective lenses Neck: trachea midline, no thyromegaly Respiratory: normal respiratory effort, lungs clear to auscultation Cardiovascular: Rate/Rhythm: + irregularly irregular Gastrointestinal (Abdomen): Inspection/Auscultation: abdomen normal to inspection and + hypoactive bowel sounds; abdomen not distended Percussion/Palpation: + abdomen tender (Mid to left lower Abdomen with pal pation), + splenomegaly and + tympanic to percussion; no guarding and abdomen not rigid Skin: no rashes, warm and dry Psychiatric: A+Ox3, euthymic affect Results & Data ([facility]) Vital Signs (Past 12 Hours) Vital Signs Temp Pulse Pulse Resp BP BP Pulse Ox 03/21/21 07:50 37.0 C 84 18 169/65 H 95 03/21/21 04:55 36.7 C 97 H 16 153/81 H 93 03/21/21 04:00 95 H 20 160/82 H 98 03/21/21 03:30 92 H 23 03/21/21 03:01 15 159/75 H 03/21/21 02:30 86 30 H 03/21/21 02:00 89 20 182/92 H 03/21/21 01:30 84 21 159/75 H 03/21/21 01:00 84 19 03/21/21 00:52 99 H 23 03/21/21 00:18 76 03/20/21 23:00 82 20 03/20/21 22:37 93 H 19 93 03/20/21 22:24 37.1 C 89 18 169/82 H 98 Laboratory Results Laboratory Results - last 24 hr 03/20/21 03/20/21 03/20/21 23:20 23:20 Unknown WBC RBC Hgb Hct MCV MCH MCHC RDW Std Deviation RDW Coeff of Terrance Plt Count MPV Immature Gran % (Auto) Neut % (Auto) Lymph % (Auto) [place] % (Auto) Eos % (Auto) Baso % (Auto) Neut # (Auto) Lymph # (Auto) [place] # (Auto) Eos # (Auto) Baso # (Auto) Immature Gran # (Auto) Absolute Nucleated RBC Nucleated RBC % (auto) Pappenheimer Bodies [place] Bodies Acanthocytes (Spur) PT 33.7 H INR 3.7 H APTT 33.7 H PTT Ratio 1.3 Sodium 140 Cancelled Potassium Cancelled Chloride 105 Cancelled Carbon Dioxide 28 Cancelled Anion Gap 7.0 Cancelled BUN 14 Cancelled Creatinine 0.78 Cancelled Est Cr Clr Drug Dosing 43.7 Cancelled Est GFR ( Amer) 79.2 Cancelled Est GFR (Non-Af Amer) 68.4 Cancelled BUN/Creatinine Ratio 17.4 Cancelled Glucose 106 H Cancelled Lactate Calcium 9.6 Cancelled Total Bilirubin 0.7 Cancelled AST Cancelled ALT 39 Cancelled Alkaline Phosphatase 61 Cancelled Troponin I < 0.015 Cancelled Total Protein 7.7 Cancelled Albumin 3.9 Cancelled Globulin 3.8 Cancelled Albumin/Globulin Ratio 1.0 Cancelled Lipase 5498 H Cancelled Urine Color Urine Appearance Urine pH Ur Specific [place] Urine Protein Urine Glucose (UA) Urine Ketones Urine Blood Urine Nitrite Urine Bilirubin Urine Urobilinogen Ur Leukocyte Esterase Urine WBC (Auto) Urine RBC (Auto) U Hyaline Cast (Auto) U Epithel Cells (Auto) Urine Bacteria (Auto) COVID-19 Eval Order SARS-CoV-2 (PCR) 03/20/21 03/21/21 03/21/21 Unknown 00:23 00:23 WBC 8.74 RBC 3.69 L Hgb 12.3 Hct 38.2 MCV 103.5 H MCH 33.3 MCHC 32.2 RDW Std Deviation 67.2 H RDW Coeff of Terrance 17.8 H Plt Count 366 MPV 11.0 H Immature Gran % (Auto) 0.2 Neut % (Auto) 68.2 Lymph % (Auto) 17.0 [place] % (Auto) 12.7 Eos % (Auto) 1.4 Baso % (Auto) 0.5 Neut # (Auto) 5.96 Lymph # (Auto) 1.49 [place] # (Auto) 1.11 H Eos # (Auto) 0.12 Baso # (Auto) 0.04 Immature Gran # (Auto) 0.02 Absolute Nucleated RBC 0.07 H Nucleated RBC % (auto) 0.8 Pappenheimer Bodies Occasional [place] Bodies Occasional Acanthocytes (Spur) 1+ PT INR APTT PTT Ratio Sodium Potassium 4.0 Chloride Carbon Dioxide Anion Gap BUN Creatinine Est Cr Clr Drug Dosing Est GFR ( Amer) Est GFR (Non-Af Amer) BUN/Creatinine Ratio Glucose Lactate 1.0 Calcium Total Bilirubin AST 28 ALT Alkaline Phosphatase Troponin I Total Protein Albumin Globulin Albumin/Globulin Ratio Lipase Urine Color Urine Appearance Urine pH Ur Specific [place] Urine Protein Urine Glucose (UA) Urine Ketones Urine Blood Urine Nitrite Urine Bilirubin Urine Urobilinogen Ur Leukocyte Esterase Urine WBC (Auto) Urine RBC (Auto) U Hyaline Cast (Auto) U Epithel Cells (Auto) Urine Bacteria (Auto) COVID-19 Eval Order SARS-CoV-2 (PCR) 03/21/21 03/21/21 03/21/21 02:39 02:39 08:12 WBC RBC Hgb Hct MCV MCH MCHC RDW Std Deviation RDW Coeff of Terrance Plt Count MPV Immature Gran % (Auto) Neut % (Auto) Lymph % (Auto) [place] % (Auto) Eos % (Auto) Baso % (Auto) Neut # (Auto) Lymph # (Auto) [place] # (Auto) Eos # (Auto) Baso # (Auto) Immature Gran # (Auto) Absolute Nucleated RBC Nucleated RBC % (auto) P[place]enheimer Bodies [place] Bodies Acanthocytes (Spur) PT 37.1 H INR 4.1 H APTT PTT Ratio Sodium Potassium Chloride Carbon Dioxide Anion Gap BUN Creatinine Est Cr Clr Drug Dosing Est GFR ( Amer) Est GFR (Non-Af Amer) BUN/Creatinine Ratio Glucose Lactate Calcium Total Bilirubin AST ALT Alkaline Phosphatase Troponin I Total Protein Albumin Globulin Albumin/Globulin Ratio Lipase Urine Color Urine Appearance Urine pH Ur Specific [place] Urine Protein Urine Glucose (UA) Urine Ketones Urine Blood Urine Nitrite Urine Bilirubin Urine Urobilinogen Ur Leukocyte Esterase Urine WBC (Auto) Urine RBC (Auto) U Hyaline Cast (Auto) U Epithel Cells (Auto) Urine Bacteria (Auto) COVID-19 Eval Order Covid19 at [facility] SARS-CoV-2 (PCR) NEGATIVE 03/21/21 Unknown WBC RBC Hgb Hct MCV MCH MCHC RDW Std Deviation RDW Coeff of Terrance Plt Count MPV Immature Gran % (Auto) Neut % (Auto) Lymph % (Auto) [place] % (Auto) Eos % (Auto) Baso % (Auto) Neut # (Auto) Lymph # (Auto) [place] # (Auto) Eos # (Auto) Baso # (Auto) Immature Gran # (Auto) Absolute Nucleated RBC Nucleated RBC % (auto) Pappenheimer Bodies [place] Bodies Acanthocytes (Spur) PT INR APTT PTT Ratio Sodium Potassium Chloride Carbon Dioxide Anion Gap BUN Creatinine Est Cr Clr Drug Dosing Est GFR ( Amer) Est GFR (Non-Af Amer) BUN/Creatinine Ratio Glucose Lactate Calcium Total Bilirubin AST ALT Alkaline Phosphatase Troponin I Total Protein Albumin Globulin Albumin/Globulin Ratio Lipase Urine Color Dark Yellow Urine Appearance Turbid A Urine pH >= 9.0 H Ur Specific [place] 1.023 Urine Protein 1+ H Urine Glucose (UA) Negative Urine Ketones Trace H Urine Blood Negative Urine Nitrite Negative Urine Bilirubin Negative Urine Urobilinogen Negative Ur Leukocyte Esterase Trace H Urine WBC (Auto) 10-30 H Urine RBC (Auto) 5-10 H U Hyaline Cast (Auto) 1-5 U Epithel Cells (Auto) 20-30 H Urine Bacteria (Auto) Negative COVID-19 Eval Order SARS-CoV-2 (PCR) Diagnostic Findings 03/20/2021: CT abdomen pelvis demonstrated 1. Distended fluid-filled distal esophagus with distended stomach and duodenum. There is abrupt transitioning at the third portion of the duodenum with findings compatible with gastric outlet obstruction. No obstructing lesion identified. Mild narrowing at the third portion of the duodenum was also present on the study from 06/06/2020. Findings should be correlated with clinical history to exclude SMA syndrome. 2. Nonobstructing left nephrolithiasis. 3. Small right and trace left pleural effusions are unchanged along with chronic left-sided pleural thickening and pleural calcifications. 4. Distended gallbladder with cholelithiasis. 5. Trace upper abdominal ascites is likely reactive. 6. Additional findings per report.
[2021-03-21] MEDS: ACETAMINOPHEN 1,000 MG/100 ML VIAL IV PRN (19:11)
--- NOTE | 2021-03-22 04:54 | Electrocardiogram Report ---
Test Reason : Blood Pressure : / mmHG Vent. Rate : 080 BPM Atrial Rate : 075 BPM P-R Int : 000 ms QRS Dur : 156 ms QT Int : 426 ms P-R-T Axes : 000 -58 128 degrees QTc Int : 491 ms Ventricular-paced rhythm Underlying atrial fibrillation Abnormal ECG When compared with ECG of 14-JUN-2020 22:35, Currently predominantly VPaced Confirmed by Dany Whittington ([id number]) on 03/22/2021 4:53:44 AM Referred By: REFERRED SELF Confirmed By:Dany Whittington
--- NOTE | 2021-03-22 05:26 | Billing Data ---
Date of Service March 22, 2021 Coding Level of Care Code 35904 Initial Inpt Care Lvl 3
[2021-03-22] MEDS ORDERED: FUROSEMIDE INJ 20 MG/2 ML VIAL IV ONE (05:32)
[2021-03-22 07:28] LABS: Basophils # (auto) 0.04 K/uL (0-0.2); Basophils % (auto) 0.3 %; Eosinophils # (auto) 0.01 K/uL (0-0.5); Eosinophils % (auto) 0.1 %; Hematocrit (blood only) 39.9 % (37-47); Immature Granulocytes # (auto) 0.05 K/uL (0.00-0.02); Immature Granulocytes % (auto) 0.4 %; Lymphocytes # (auto) 0.66 K/uL (1.2-3.4); Lymphocytes % (auto) 5.6 %; Mean Corpuscular Hemoglobin 33.5 pg (25-34); Mean Corpuscular Hgb Conc 32.6 g/dL (32-36); Mean Corpuscular Volume 102.8 fL (80-100); Mean Platelet Volume 10.7 fL (7.4-10.4); Monocytes # (auto) 1.59 K/uL (0.11-0.59); Monocytes % (auto) 13.6 %; Neutrophils # (auto) 9.35 K/uL (1.4-6.5); Platelet Count 300 K/uL (130-400); RDW Standard Deviation 67.2 fL (36.4-46.3); Red Blood Count 3.88 M/uL (4.2-5.4)
[2021-03-22 07:46] LABS: Prothrombin Time 50.4 Seconds (9.0-12.0)
[2021-03-22 07:49] LABS: Phosphorus 2.5 mg/dl (2.5-4.9)
[2021-03-22 07:54] LABS: INR 5.7 (0.9-1.1)
[2021-03-22 07:58] LABS: Acanthocytes 1+; Howell-Jolly Bodies 1+
[2021-03-22] MEDS ORDERED: OPTIRAY 320 100ml IV ONE (08:36)
[2021-03-22] MEDS ORDERED: LACTATED RINGER'S 1,000 ML IV SCH (09:00)
--- NOTE | 2021-03-22 09:30 | CT Scan Report ---
CT abdomen w IV con CLINICAL HISTORY: duodenal obstruction, rule out SMA syndrome TECHNIQUE: Helical axial images of the abdomen were obtained. Automated dose lowering techniques and/ or adjustment according to patient size were utilized for this exam. This exam was performed with in travenous contrast. Comparison: None available at the time of this dictation. FINDINGS: Lower chest: Moderate right and small left pleural effusions noted with underlying atelectasis. Card iomegaly is seen. Liver: Hepatic steatosis is noted. Incidental note is made of reflux of contrast from the IVC. Gallbladder and biliary tree: The gallbladder is distended. No intra- or extrahepatic biliary ductal dilation. Pancreas: Unremarkable, no focal lesions. Spleen: Calcifications are noted in the spleen compatible with prior granulomatous disease. Adrenals: Nodular thickening of the left adrenal gland. Kidneys and ureters: Unremarkable. Bowel: No evidence of duodenal obstruction is seen. Lymph nodes Retroperitoneal: Unremarkable. Mesenteric: Unremarkable. Peritoneum: Mild soft tissue stranding is seen in the right paracolic gutter. Vessels: Atherosclerotic calcifications are seen. Abdominal wall: Unremarkable. Bones: Multilevel compression deformity and cemented arthroplasty noted. IMPRESSION: 1. In comparison to the prior exam, no evidence of duodenal obstruction is seen, previously noted di stention with likely transient. No evidence of SMA syndrome. 2. Cardiomegaly and heart failure. 3. Right greater than left pleural effusions with underlying atelectasis. ACT 112: Negative or not required by law. Electronically signed by: Chris Malcolm M.D. 03/22/2021 9:29 AM
[2021-03-22] MEDS: sulfaSALAzine 500 MG TABLET PO SCH ×2 (09:56→21:28)
[2021-03-22] MEDS: FAMOTIDINE 20 MG in SYRINGE 3 ML IV SCH (09:56)
[2021-03-22] MEDS: CEROVITE ADV FORMULA TAB PO SCH ×2 (09:56→21:28)
[2021-03-22] MEDS: RESTASIS~ORDER AWAITING ACTION SCH ×2 (09:56→15:58)
--- NOTE | 2021-03-22 10:23 | XRay Report ---
XR chest 1V portable CLINICAL HISTORY: new o2 demand TECHNIQUE: Single frontal radiograph of the chest was obtained. Comparison: Comparison is made to chest one view 03/21/2021 FINDINGS: Stable dual lead pacemaker. The cardiomediastinal silhouette is normal. The lungs are clear. There ar e small bilateral pleural effusions. IMPRESSION: Small bilateral pleural effusions without underlying airspace opacity noted. ACT 112: Negative or not required by law. Electronically signed by: Chris Malcolm M.D. 03/22/2021 10:21 AM
--- NOTE | 2021-03-22 11:37 | Hospitalist Progress Note ---
Date of Service March 22, 2021 Assessment & Plan (1) Small bowel obstruction: Plan: Mrs. Meehan is an 86 yo woman with a history of high grade gastric outlet obstruction who presented to [facility] for acute onset abdominal pain and vomiting. Small bowel obstruction: - CT abdomen showing fluid distention of esophagus, stomach and proximal duodenal transition; suspicion of external compression of SMA (per [employer]); however previous imaging studies have showed no evidence of SMA syndrome -Repeat CT abdomen on 03/22 showing resolution of obstruction - NG tube in place -- low-intermittent suction - Famotidine 20mg IV q12h - Gastro consult -Impression is resolution of the duodenal obstruction with gastric decompression. 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 -Recommend nutrition evaluation and cautiously advance to low residue diet -Advance to clear liquids today, patient tolerating well with lunch plan to advance as tolerated Hypoxia: -Acute decompensation from CHF versus atelectasis, or combination -Lasix 20 mg x 1 overnight additional 20 mg given this p.m. -Incentive spirometry ordered, instructed on use -Attempt to wean oxygen as able -Continue to monitor, consider additional Lasix -Continue to hold IVF Delirium: -Likely episode of hospital delirium overnight leading to removal of NG tub e/agitation -Frequent reorientation -Avoid sedating medications as much as possible Pancreatitis: - lipase elevated to 5489 on admission - IV Tylenol for pain, Zofran for nausea - suspect related to obstructive process of small bowel >> versus adverse effect of mercaptopurine - no etoh intake, normal Ca level, history of normal triglyceride levels; no known pancreatic structural abnormalities (organ noted to be atrophic on previous scans) Aortic stenosis: - s/p TAVR Elevated INR: - INR supratherapeutic -- 4.1 today - goal 2.0-2.5 - hold Coumadin - recheck INR in AM Atrial fibrillation: - permanent - on chronic anticoag with coumadin - rate control with diltiazem and metoprolol; hold while NPO CHF (congestive heart failure): - chronic - hold home metoprolol while NPO - hold lasix while NPO - gentle IV fluids as above Ulcerative colitis: - continue mercaptopurine and sulfasalazine DVT ppx: on coumadin (holding due to elevated INR) Diet: Clear liquids, advance as tolerated Dispo: Med/Surg Code: DNR/DNI (2) Pancreatitis: (3) Elevated INR: (4) Atrial fibrillation: (5) CHF (congestive heart failure): (6) Ulcerative colitis: Admission and Anticipated Discharge Date Admission Date: March 21, 2021 Supervising Physician Co-Signing Physician Notes I personally examined the patient and verified all fermin points of history and exam, discussed case, and agree with decision making with Dr Ady tirado feeling better - no pain or nausea. self-removed NGT last night but no worsening of pain/nausea/bloating since. tolerated clear liquids well. no sob, notes that pulse ox was never low before that she can remember. is a little more confused this afternoon when i see her vitals noted nad, pleasantly confused but easily redirectable. heent nc at mmm. lungs faintly coarse base R diminished base L > R but bibasilar. otherwise clear no wheeze no rhonchi. no accessory muscles. cardio tachy irreg irreg. abd soft nd nt no masses or organomegaly SBO - appears clinically and radiographically to be resolving. ?SMA syndrome given that it can be dynamic. that said, would hesitate to subject an 86yo to the kind of surgical intervention typically utilized for this, particularly with how quickly this resolved w supportive care and with it not being totally clear that it was/is SMA syndrome rather than adhesions. clear liquids, slowly advance as tolerated. serial exams/supportive care hypoxia - not clear if this is due to acute diastolic decompensation of CHF (ec ho from about a month ago did show LVH, mod MR), atelectasis, or both. clinically nothing appearing consistent w pneumonia, and INR 5.7 making PE exceedingly unlikely. lasix, hold fluids, coached on incentive spirometry, supportive care, serial exams delirium - likely a degree of hospital delirium in 86 yo, although can't completely r/o metabolic encephalopathy from hypoxia. otherwise as above Subjective Overnight patient was confused and pulled out her NG tube. During this episode her pulse ox was checked and she was found to be in the 70s. As such, overnight resident turned off IV fluids, gave 1 dose of Lasix 20 mg IV, patient was placed on oxygen mask 7 L. This morning requiring 2 L. Patient reports remembering being confused and apologetic for removing NG tube. Continues to deny abdominal pain, nausea, vomiting. She reports that overnight she did feel significantly short of breath but this morning feeling much better. Denies fever, chills, cough, shortness of breath at this time. Review of Systems Review of Systems: per subjective Physical Exam Physical Exam: GENERAL: A&Ox3. NAD. HEENT: PERRL, EOMI. Moist mucous membranes. NECK: No JVD. No lymphadenopathy. CHEST/LUNGS: CTAB A/P. Decreased air movement at bases. No crackles, wheezes, rales, rhonchi. HEART: RRR. No m/g/r. No carotid bruits. ABDOMEN: NT/ND, soft. BS+ x4 EXTREMITIES: No cyanosis, no clubbing, no edema SKIN: Warm and dry. No rashes or lesions. Results & Data Results & Data ([facility]) Vital Signs (Past 12 Hours) Vital Signs Temp Pulse Pulse Resp BP Pulse Ox 03/22/21 09:50 115 H 18 85 L 03/22/21 07:44 36.8 C 115 H 21 185/93 H 91 03/22/21 05:20 90 03/21/21 23:47 90 Resident Activity Tracking Resident Involvement: Resident Care Provided Care Provided: Adult Hospital Medicine
[2021-03-22 12:12] LABS: Folate (Folic Acid) 15.9 ng/ml (>5.38)
[2021-03-22] MEDS ORDERED: FUROSEMIDE 40 MG/4 ML VIAL IV ONE (14:44)
--- NOTE | 2021-03-22 14:52 | Billing Data ---
Date of Service March 22, 2021 Coding Level of Care Code 57981 Subseq Hosp Care Lvl 3
--- NOTE | 2021-03-22 15:41 | Gastroenterology Progress Note ---
Date of Service March 22, 2021 Assessment & Plan (1) Duodenal obstruction: (2) Vomiting: Plan: Impression is resolution of the duodenal obstruction with gastric decompression. 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 Recommend nutrition evaluation and cautiously advance to low residue diet. We will sign off at this time and consult again as requested by the primary care team Admission and Anticipated Discharge Date Admission Date: March 21, 2021 Subjective This afternoon, the patient has no digestive complaints, no nausea, vomiting, or abdominal pain. She accidentally removed the NG tube overnight. This afternoon she is tolerating a clear liquid diet without difficulty. Repeat CT Abdomen this morning reveals resolution of the duodenal obstruction, this is most consistent with SMA syndrome. Review of Systems Review of Systems: All systems reviewed & are unremarkable except as noted in Subjective Physical Exam Gastrointestinal (Abdomen): The abdomen is flat, soft, nontender, no guarding, no rebound tenderness, no distension, masses, no ascites detectable Results & Data ([facility]) Vital Signs (Past 12 Hours) Vital Signs Temp Pulse Pulse Resp BP Pulse Ox 03/22/21 14:47 36.7 C 109 H 17 149/88 H 96 03/22/21 09:50 115 H 18 85 L 03/22/21 07:44 36.8 C 115 H 21 185/93 H 91 03/22/21 05:20 90 Laboratory Results Laboratory Results WBC 11.70 K/uL (4.8-10.8) H 03/22/21 07:02 RBC 3.88 M/uL (4.2-5.4) L 03/22/21 07:02 Hgb 13.0 g/dL (12.0-16.0) 03/22/21 07:02 Hct 39.9 % (37-47) 03/22/21 07:02 MCV 102.8 fL (80-100) H 03/22/21 07:02 MCH 33.5 pg (25-34) 03/22/21 07:02 MCHC 32.6 g/dL (32-36) 03/22/21 07:02 RDW Std Deviation 67.2 fL (36.4-46.3) H 03/22/21 07:02 RDW Coeff of Terrance 18.0 % (11.5-14.5) H 03/22/21 07:02 Plt Count 300 K/uL (130-400) 03/22/21 07:02 MPV 10.7 fL (7.4-10.4) H 03/22/21 07:02 Immature Gran % (Auto) 0.4 % 03/22/21 07:02 Neut % (Auto) 80.0 % 03/22/21 07:02 Lymph % (Auto) 5.6 % 03/22/21 07:02 Centre % (Auto) 13.6 % 03/22/21 07:02 Eos % (Auto) 0.1 % 03/22/21 07:02 Baso % (Auto) 0.3 % 03/22/21 07:02 Neut # (Auto) 9.35 K/uL (1.4-6.5) H 03/22/21 07:02 Lymph # (Auto) 0.66 K/uL (1.2-3.4) L 03/22/21 07:02 Centre # (Auto) 1.59 K/uL (0.11-0.59) H 03/22/21 07:02 Eos # (Auto) 0.01 K/uL (0-0.5) 03/22/21 07:02 Baso # (Auto) 0.04 K/uL (0-0.2) 03/22/21 07:02 Immature Gran # (Auto) 0.05 K/uL (0.00-0.02) H 03/22/21 07:02 Absolute Nucleated RBC 0.07 K/uL (0-0) H 03/20/21 Unknown Nucleated RBC % (auto) 0.8 % 03/20/21 Unknown Pappenheimer Bodies Occasional 03/20/21 Unknown [place] Bodies 1+ 03/22/21 07:02 Acanthocytes (Spur) 1+ 03/22/21 07:02 Peripher Smr Path Cons 03/22/21 10:57 PT 50.4 Seconds (9.0-12.0) H 03/22/21 07:02 INR 5.7 (0.9-1.1) H* 03/22/21 07:02 APTT 33.7 Seconds (21.0-31.0) H 03/20/21 23:20 PTT Ratio 1.3 03/20/21 23:20 Sodium Cancelled 03/20/21 Unknown Potassium 4.0 mmol/L (3.5-5.1) 03/21/21 00:23 Chloride Cancelled 03/20/21 Unknown Carbon Dioxide Cancelled 03/20/21 Unknown Anion Gap Cancelled 03/20/21 Unknown BUN Cancelled 03/20/21 Unknown Creatinine Cancelled 03/20/21 Unknown Est Cr Clr Drug Dosing Cancelled 03/20/21 Unknown Est GFR ( Amer) Cancelled 03/20/21 Unknown Est GFR (Non-Af Amer) Cancelled 03/20/21 Unknown BUN/Creatinine Ratio Cancelled 03/20/21 Unknown Glucose Cancelled 03/20/21 Unknown Lactate 1.0 mmol/L (0.4-2.0) 03/21/21 00:23 Calcium Cancelled 03/20/21 Unknown Phosphorus 2.5 mg/dl (2.5-4.9) 03/22/21 07:02 Magnesium 2.0 mg/dl (1.8-2.4) 03/22/21 07:02 Total Bilirubin Cancelled 03/20/21 Unknown AST 28 U/L (15-37) 03/21/21 00:23 ALT Cancelled 03/20/21 Unknown Alkaline Phosphatase Cancelled 03/20/21 Unknown Troponin I Cancelled 03/20/21 Unknown Total Protein Cancelled 03/20/21 Unknown Albumin Cancelled 03/20/21 Unknown Globulin Cancelled 03/20/21 Unknown Albumin/Globulin Ratio Cancelled 03/20/21 Unknown Lipase Cancelled 03/20/21 Unknown Vitamin B12 578 pg/ml (193-986) 03/22/21 10:57 Folate 15.90 ng/ml (>5.38) 03/22/21 10:57 Urine Color Dark Yellow 03/21/21 Unknown Urine Appearance Turbid (Clear) A 03/21/21 Unknown Urine pH >= 9.0 (4.5-7.5) H 03/21/21 Unknown Ur Specific [place] 1.023 (1.000-1.030) 03/21/21 Unknown Urine Protein 1+ (Negative) H 03/21/21 Unknown Urine Glucose (UA) Negative (Negative) 03/21/21 Unknown Urine Ketones Trace (Negative) H 03/21/21 Unknown Urine Blood Negative (Negative) 03/21/21 Unknown Urine Nitrite Negative (Negative) 03/21/21 Unknown Urine Bilirubin Negative (Negative) 03/21/21 Unknown Urine Urobilinogen Negative (Negative) 03/21/21 Unknown Ur Leukocyte Esterase Trace (Negative) H 03/21/21 Unknown Urine WBC (Auto) 10-30 /hpf (0-5) H 03/21/21 Unknown Urine RBC (Auto) 5-10 /hpf (0-4) H 03/21/21 Unknown U Hyaline Cast (Auto) 1-5 /lpf (0-5) 03/21/21 Unknown U Epithel Cells (Auto) 20-30 /lpf (0-5) H 03/21/21 Unknown Urine Bacteria (Auto) Negative (Negative) 03/21/21 Unknown COVID-19 Eval Order Covid19 at [facility] 03/21/21 02:39 SARS-CoV-2 (PCR) NEGATIVE (Negative) 03/21/21 02:39 Impressions Abdomen/Pelvis CT 03/20/21 22:[address] WITHOUT CONTRAST CT DOSE: 330.26 mGy.cm HISTORY: Acute nausea and vomiting with left lower quadrant abdominal pain vomiting, lower left abd pain TECHNIQUE: Multiaxial CT images of the abdomen and pelvis were performed without contrast. A dose lowering technique was utilized adhering to the principles of ALARA. COMPARISON STUDY: KUB of same day, CT abdomen and pelvis 06/06/2020 FINDINGS: Moderate cardiomegaly with cardiac pacer. Extensive coronary artery calcifications. Aortic valvular endograft. Small right and trace left pleural effusions. Left pleural calcifications are redemonstrated. Dependent subsegmental bibasilar densities suggest atelectasis. There are a few calcified granulomata noted within the lung bases. 5 mm groundglass nodular focus of the lateral segment right middle lobe is unchanged. Mild intralobular septal thickening likely reflects a component of pulmonary edema. No pneumatosis or pneumoperitoneum. Calcified granuloma of the spleen. Atrophic pancreas. Unremarkable adrenal glands. Distended gallbladder with mild layering cholelithiasis. Scattered calcified granulomata of the liver. Hepatic steatosis. Mild cortical thinning of the kidneys. 4 mm nonobstructing calculus of the inferior pole left kidney. 2.0 cm hypodense lesion of the lateral interpolar left kidney is unchanged suggestive of a probable cyst. Partial distention of the urinary bladder. Atherosclerotic plaque of the abdominal aorta without aneurysm. No adenopathy. Fluid distended distal esophagus with mild periesophageal edema and stranding. The stomach is markedly distended and is fluid-filled and debris-filled. The duodenum is also distended demonstrates periduodenal stranding and trace free fluid. There is abrupt narrowing at the third portion of the duodenum which in retrospect was also present on the prior study. No obstructing mass identified. Colonic diverticulosis. Moderate fecal retention. The appendix is not definitively seen. No secondary signs of acute appendicitis. Mild generalized body wall edema. Degenerative changes of the spine, pelvis and hips. Numerous chronic compression deformities of the thoracolumbar spine with L2 and L5 kyphoplasty. IMPRESSION: 1. Distended fluid-filled distal esophagus with distended stomach and duodenum. There is abrupt transitioning at the third portion of the duodenum with findings compatible with gastric outlet obstruction. No obstructing lesion identified. Mild narrowing at the third portion of the duodenum was also present on the study from 06/06/2020. Findings should be correlated with clinical history to exclude SMA syndrome. 2. Nonobstructing left nephrolithiasis. 3. Small right and trace left pleural effusions are unchanged along with chronic left-sided pleural thickening and pleural calcifications. 4. Distended gallbladder with cholelithiasis. 5. Trace upper abdominal ascites is likely reactive. 6. Additional findings as above. ACT 112: Negative or not required by law. The above report was generated using voice recognition software. It may contain grammatical, syntax or spelling errors. Electronically signed by: Pedro Garcia M.D. 03/21/2021 8:24 AM KUB X-Ray 03/21/21 02:37 KUB CLINICAL HISTORY: Enteric tube placement. FINDINGS: An AP supine view of the lower chest and upper abdomen is correlated with abdominal CT dated 03/21/2021. An enteric tube is coiled in the distal esophagus. There is no evidence of bowel obstruction. Small pleural effusions are identified. The heart is enlarged and a cardiac pacemaker is in place. The skeletal structures are osteopenic with compression deformities and vertebroplasty change seen in the lumbar spine. IMPRESSION: 1. An enteric tube is coiled in the distal esophagus. 2. There is no evidence of bowel obstruction. Electronically signed by: Jordi Parrish M.D. 03/21/2021 7:[address] 03/22/21 08:00 CT abdomen w IV con CLINICAL HISTORY: duodenal obstruction, rule out SMA syndrome TECHNIQUE: Helical axial images of the abdomen were obtained. Automated dose lowering techniques and/or adjustment according to patient size were utilized for this exam. This exam was performed with intravenous contrast. Comparison: None available at the time of this dictation. FINDINGS: Lower chest: Moderate right and small left pleural effusions noted with underlying atelectasis. Cardiomegaly is seen. Liver: Hepatic steatosis is noted. Incidental note is made of reflux of contrast from the IVC. Gallbladder and biliary tree: The gallbladder is distended. No intra- or extrahepatic biliary ductal dilation. Pancreas: Unremarkable, no focal lesions. Spleen: Calcifications are noted in the spleen compatible with prior granulomatous disease. Adrenals: Nodular thickening of the left adrenal gland. Kidneys and ureters: Unremarkable. Bowel: No evidence of duodenal obstruction is seen. Lymph nodes Retroperitoneal: Unremarkable. Mesenteric: Unremarkable. Peritoneum: Mild soft tissue stranding is seen in the right paracolic gutter. Vessels: Atherosclerotic calcifications are seen. Abdominal wall: Unremarkable. Bones: Multilevel compression deformity and cemented arthroplasty noted. IMPRESSION: 1. In comparison to the prior exam, no evidence of duodenal obstruction is seen, previously noted distention with likely transient. No evidence of SMA syndrome. 2. Cardiomegaly and heart failure. 3. Right greater than left pleural effusions with underlying atelectasis. ACT 112: Negative or not required by law. Electronically signed by: Chris Malcolm M.D. 03/22/2021 9:29 AM Chest X-Ray 03/22/21 09:43 XR chest 1V portable CLINICAL HISTORY: new o2 demand TECHNIQUE: Single frontal radiograph of the chest was obtained. Comparison: Comparison is made to chest one view 03/21/2021 FINDINGS: Stable dual lead pacemaker. The cardiomediastinal silhouette is normal. The lungs are clear. There are small bilateral pleural effusions. IMPRESSION: Small bilateral pleural effusions without underlying airspace opacity noted. ACT 112: Negative or not required by law. Electronically signed by: Chris Malcolm M.D. 03/22/2021 10:21 AM (1) Vomiting Nausea presence: with nausea Vomiting Intractability: non-intractable Vomiting type: unspecified Qualified Code(s): R11.2 - Nausea with vomiting, unspecified
[2021-03-22] MEDS ORDERED: LORATADINE 10 MG TAB PO PRN (18:07)
[2021-03-22] MEDS ORDERED: METOPROLOL SUCC 50MG EXT REL TAB PO STA (18:23)
[2021-03-22] MEDS: POTASSIUM CHLORIDE 10 MEQ TABCR PO SCH (20:20)
[2021-03-22] MEDS: cloNIDine HCL 0.1 MG TAB PO SCH (21:28)
[2021-03-22] MEDS: MERCAPTOPURINE 50 MG TAB PO SCH (21:28)
[2021-03-22] MEDS: traZODone HCL 50 MG TAB PO SCH (21:28)
[2021-03-22] MEDS: FAMOTIDINE 20 MG TAB PO SCH (21:28)
[2021-03-22] MEDS: CALCIUM 600MG + VIT D 400 IU TAB PO SCH (21:28)
[2021-03-23] MEDS: RESTASIS~ORDER AWAITING ACTION SCH ×3 (00:28→15:43)
--- NOTE | 2021-03-23 08:08 | Hospitalist Progress Note ---
Date of Service March 23, 2021 Assessment & Plan (1) Small bowel obstruction: Plan: Mrs. Meehan is an 86 yo woman with a history of high grade gastric outlet obstruction who presented to [facility] for acute onset abdominal pain and vomiting. Small bowel obstruction: - CT abdomen showing fluid distention of esophagus, stomach and proximal duodenal transition; suspicion of external compression of SMA (per STATRAD); however previous imaging studies have showed no evidence of SMA syndrome -Repeat CT abdomen on 03/22 showing resolution of obstruction - NG tube in place -- low-intermittent suction - Famotidine 20mg IV q12h - Gastro consult -Impression is resolution of the duodenal obstruction with gastric decompression. 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 -Recommend nutrition evaluation and cautiously advance to low residue diet -Advance to clear liquids today, patient tolerating well with lunch plan to advance as tolerated Atrial fibrillation: - permanent - on chronic anticoag with coumadin - rate control with diltiazem and metoprolol -- initially held while NPO - Restarted metorpolol last night as patient's HR trending up - Restart Diltiaezem today - Monitor HR - Additional metoprolol 12.5mg x1 this AM Elevated INR: - INR supratherapeutic - goal 2.0-2.5 - hold Coumadin - COntinue to monitor - recheck INR in AM Hypoxia - resolved -Acute decompensation from CHF versus atelectasis, or combination -Lasix 20 mg x 1 overnight additional 20 mg given this p.m. -Incentive spirometry ordered, instructed on use - Saturating adequately on room air as of 03/23 Delirium: -Likely episode of hospital delirium overnight 03/21-03/22 leading to removal of NG tube/agitation -Frequent reorientation -Avoid sedating medications as much as possible Pancreatitis: - lipase elevated to 5489 on admission - No abd symptoms at this point - IV Tylenol for pain, Zofran for nausea - suspect related to obstructive process of small bowel >> versus adverse effect of mercaptopurine - no etoh intake, normal Ca level, history of normal triglyceride levels; no known pancreatic structural abnormalities (organ noted to be atrophic on previous scans) Aortic stenosis: - s/p TAVR CHF (congestive heart failure): - chronic - Home lasix and metoprolol started now that she is not NPO Ulcerative colitis: - continue mercaptopurine and sulfasalazine DVT ppx: on coumadin (holding due to elevated INR) Diet: Low fiber diet Dispo: Med/Surg Code: DNR/DNI (2) Pancreatitis: (3) Elevated INR: (4) Atrial fibrillation: (5) CHF (congestive heart failure): (6) Ulcerative colitis: Admission and Anticipated Discharge Date Admission Date: March 21, 2021 Supervising Physician Co-Signing Physician Notes I personally examined the patient and verified all fermin points of history and exam, discussed case, and agree with decision making with Dr Ady tirado feeling better -tolerating liquids vitals noted nad, pleasantly nad. heent nc at mmm. breathing unlabored no accessory muscles good. no accessory muscles. cardio tachy irreg irreg. SBO - appears clinically and radiographically to be resolving. ?SMA syndrome given that it can be dynamic. that said, would hesitate to subject an 86yo to the kind of surgical intervention typically utilized for this, particularly with how quickly this resolved w supportive care and with it not being totally clear that it was/is SMA syndrome rather than adhesions. advance diet as tolerated. serial exams/supportive care hypoxia - probably combination of acute diastolic decompensation of CHF (echo from about a month ago did show LVH, mod MR), atelectasis, or both. clinically nothing appearing consistent w pneumonia, and high inr makes PE exceedingly unlikely. improving afib rvr - was off home meds when npo - improving. delirium - waxing and waning, improving otherwise as above Subjective No acute events overngiht. Eating clear liquid breakfast without issues. She denies abd pain, nausea, vomiting. Also denies CP, palpitations, SOB. Review of Systems Review of Systems: per subjective Physical Exam Physical Exam: GENERAL: A&Ox3. NAD. CHEST/LUNGS: CTAB A/P. Decreased air movement at bases. No crackles, wheezes, rales, rhonchi. HEART: Irregularly irregular. No m/g/r. No carotid bruits. ABDOMEN: NT/ND, soft. BS+ x4 EXTREMITIES: No cyanosis, no clubbing, no edema SKIN: Warm and dry. No rashes or lesions. Results & Data Results & Data ([facility]) Vital Signs (Past 12 Hours) Vital Signs Temp Pulse Pulse Resp BP Pulse Ox 03/22/21 22:21 36.5 C 98 H 22 176/91 H 96 03/22/21 20:22 109 H 157/98 H Resident Activity Tracking Resident Involvement: Resident Care Provided Care Provided: Adult Hospital Medicine
[2021-03-23] MEDS ORDERED: METOPROLOL TARTRATE 25 MG TAB PO ONE (09:05)
[2021-03-23] MEDS: PANTOprazole 40 MG TAB PO SCH ×2 (09:32→17:29)
[2021-03-23] MEDS: sulfaSALAzine 500 MG TABLET PO SCH ×2 (09:34→20:14)
[2021-03-23] MEDS: FUROSEMIDE 20 MG TAB PO SCH (09:35)
[2021-03-23] MEDS: CALCIUM 600MG + VIT D 400 IU TAB PO SCH ×2 (09:35→20:13)
[2021-03-23] MEDS: CEROVITE ADV FORMULA TAB PO SCH ×3 (09:35→20:14)
[2021-03-23] MEDS: POTASSIUM CHLORIDE 10 MEQ TABCR PO SCH (09:35)
[2021-03-23] MEDS: cloNIDine HCL 0.1 MG TAB PO SCH ×2 (10:13→20:14)
[2021-03-23 10:14] LABS: Basophils # (auto) 0.01 K/uL (0-0.2); Basophils % (auto) 0.1 %; Eosinophils # (auto) 0.01 K/uL (0-0.5); Eosinophils % (auto) 0.1 %; Hematocrit (blood only) 36.1 % (37-47); Hemoglobin 11.7 g/dL (12.0-16.0); Immature Granulocytes # (auto) 0.01 K/uL (0.00-0.02); Immature Granulocytes % (auto) 0.1 %; Lymphocytes # (auto) 0.75 K/uL (1.2-3.4); Lymphocytes % (auto) 10.7 %; Mean Corpuscular Hgb Conc 32.4 g/dL (32-36); Mean Corpuscular Volume 101.7 fL (80-100); Monocytes # (auto) 1.03 K/uL (0.11-0.59); Monocytes % (auto) 14.7 %; Neutrophils # (auto) 5.19 K/uL (1.4-6.5); Neutrophils % (auto) 74.3 %; Nucleated RBC # (auto) 0.02 K/uL (0-0); Nucleated RBC % (auto) 0.3 %; Platelet Count 271 K/uL (130-400); RDW Standard Deviation 67.1 fL (36.4-46.3); Red Blood Count 3.55 M/uL (4.2-5.4)
[2021-03-23 10:33] LABS: BUN Creatinine Ratio 27.4 (10-20); Calcium 8.2 mg/dl (8.5-10.1); Creatinine Clr Calc Pharmacy 47.2 ml/min; Est GFR (African American) 87.3 ml/min; Est GFR (Non-African American) 75.3 ml/min; Potassium 3.2 mmol/L (3.5-5.1)
[2021-03-23 10:35] LABS: INR 5.1 (0.9-1.1); Prothrombin Time 45.1 Seconds (9.0-12.0)
[2021-03-23] MEDS ORDERED: POTASSIUM CHLORIDE CRTAB 20 MEQ TABCR PO STA (11:13)
[2021-03-23] MEDS: METOPROLOL SUCC 50MG EXT REL TAB PO SCH (12:51)
[2021-03-23] MEDS: CLOPIDOGREL BISULFATE 75 MG TAB PO SCH (12:59)
[2021-03-23] MEDS: CHOLECALCIFEROL 1,000 UNITS 25 MCG TAB PO SCH (13:00)
--- NOTE | 2021-03-23 17:01 | Billing Data ---
Date of Service March 23, 2021 Coding Level of Care Code 16944 Subseq Hosp Care Lvl 3
[2021-03-23] MEDS: ROSUVASTATIN CALCIUM 5 MG TAB PO SCH (17:29)
[2021-03-23] MEDS: MERCAPTOPURINE 50 MG TAB PO SCH (20:14)
[2021-03-23] MEDS: traZODone HCL 50 MG TAB PO SCH (20:14)
[2021-03-23] MEDS: FAMOTIDINE 20 MG TAB PO SCH (20:14)
[2021-03-24] MEDS: RESTASIS~ORDER AWAITING ACTION SCH ×4 (00:07→23:12)
[2021-03-24] MEDS: ACETAMINOPHEN 1,000 MG/100 ML VIAL IV PRN (03:50)
[2021-03-24 06:40] LABS: Basophils # (auto) 0.02 K/uL (0-0.2); Basophils % (auto) 0.4 %; Eosinophils % (auto) 1.9 %; Hematocrit (blood only) 37.4 % (37-47); Hemoglobin 12.2 g/dL (12.0-16.0); Immature Granulocytes # (auto) 0.01 K/uL (0.00-0.02); Immature Granulocytes % (auto) 0.2 %; Lymphocytes # (auto) 1.05 K/uL (1.2-3.4); Lymphocytes % (auto) 19.9 %; Mean Corpuscular Hemoglobin 32.9 pg (25-34); Mean Corpuscular Hgb Conc 32.6 g/dL (32-36); Mean Corpuscular Volume 100.8 fL (80-100); Mean Platelet Volume 10.9 fL (7.4-10.4); Monocytes # (auto) 1.05 K/uL (0.11-0.59); Monocytes % (auto) 19.9 %; Neutrophils # (auto) 3.04 K/uL (1.4-6.5); Neutrophils % (auto) 57.7 %; Platelet Count 290 K/uL (130-400); RDW Coefficient of Variation 17.9 % (11.5-14.5); RDW Standard Deviation 66.8 fL (36.4-46.3); Red Blood Count 3.71 M/uL (4.2-5.4); White Blood Count 5.27 K/uL (4.8-10.8)
[2021-03-24 06:57] LABS: INR 2.5 (0.9-1.1); Prothrombin Time 23.8 Seconds (9.0-12.0)
[2021-03-24 07:26] LABS: BUN Creatinine Ratio 26.7 (10-20); Est GFR (African American) 91.2 ml/min; Est GFR (Non-African American) 78.6 ml/min; Potassium 3.7 mmol/L (3.5-5.1)
--- NOTE | 2021-03-24 08:10 | Hospitalist Progress Note ---
Date of Service March 24, 2021 Assessment & Plan (1) Small bowel obstruction: Plan: Mrs. Meehan is an 86 yo woman with a history of high grade gastric outlet obstruction who presented to [facility] for acute onset abdominal pain and vomiting. Small bowel obstruction: - CT abdomen showing fluid distention of esophagus, stomach and proximal duodenal transition; suspicion of external compression of SMA (per STATRAD); however previous imaging studies have showed no evidence of SMA syndrome -Repeat CT abdomen on 03/22 showing resolution of obstruction - NG tube in place -- low-intermittent suction - Famotidine 20mg IV q12h - Gastro consult -Impression is resolution of the duodenal obstruction with gastric decompression. 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 -Recommend nutrition evaluation and cautiously advance to low residue diet -Advance to clear liquids today, patient tolerating well with lunch plan to advance as tolerated Atrial fibrillation: - permanent - on chronic anticoag with coumadin - rate control with diltiazem and metoprolol -- initially held while NPO - Continue home metoprolol and diltiazem - Monitor HR - Consider additional metoprolol tartrate doses as needed for elevated HR if BP allows Fall/weakness: - PT/OT ordered - Anticipate SNF vs rehab -- she is a resident in independent living at [facility] - CM to assist Elevated INR: - INR supratherapeutic - goal 2.0-2.5 - hold Coumadin - Continue to monitor INR Hypoxia - resolved -Acute decompensation from CHF versus atelectasis, or combination - Received total 2 doses of Lasix 20mg -Incentive spirometry ordered, instructed on use - Saturating adequately on room air as of 03/23 Delirium: -Likely episode of hospital delirium overnight 03/21-03/22 leading to removal of NG tube/agitation -Frequent reorientation -Avoid sedating medications as much as possible Pancreatitis: - lipase elevated to 5489 on admission - No abd symptoms at this point - IV Tylenol for pain, Zofran for nausea - suspect related to obstructive process of small bowel >> versus adverse effect of mercaptopurine - no etoh intake, normal Ca level, history of normal triglyceride levels; no known pancreatic structural abnormalities (organ noted to be atrophic on previous scans) Aortic stenosis: - s/p TAVR CHF (congestive heart failure): - chronic - Home lasix and metoprolol started now that she is not NPO Ulcerative colitis: - continue mercaptopurine and sulfasalazine DVT ppx: on coumadin (holding due to elevated INR) Diet: Low fiber diet Dispo: Med/Surg, PT/OT for determination of discharge needs Code: DNR/DNI (2) Pancreatitis: (3) Elevated INR: (4) Atrial fibrillation: (5) CHF (congestive heart failure): (6) Ulcerative colitis: Admission and Anticipated Discharge Date Admission Date: March 21, 2021 Supervising Physician Co-Signing Physician Notes I personally examined the patient and verified all fermin points of history and exam, discussed case, and agree with decision making with Dr Ady tirado feeling better -working with therapy when I see her. Later, case discussed with case managementshe will be for SNF in the [facility] system, unfortunately they were not able to take her today. vitals noted nad, pleasantly nad. heent nc at mmm. breathing unlabored no accessory muscles good effort no respiratory distress. SBO - appears clinically and radiographically to be resolving. ?SMA syndrome given that it can be dynamic. that said, would hesitate to subject an 86yo to the kind of surgical intervention typically utilized for this, particularly with how quickly this resolved w supportive care and with it not being totally clear that it was/is SMA syndrome rather than adhesions. Dietary management and supportive care hypoxia - probably combination of acute diastolic decompensation of CHF (echo from about a month ago did show LVH, mod MR), atelectasis, or both. clinically nothing appearing consistent w pneumonia, and high inr makes PE exceedingly unlikely. improving/resolved afib rvr - was off home meds when npo - improving, and now rates are much more reasonably controlled. INR trended down to 2.5will resume Coumadinlower dose today, and then home dosing tomorrow. Continue to follow INR delirium - waxing and waning, improving overall otherwise as above for SNF with goal of return home Subjective Yesterday PM had fall from her bed. She bumped/bruised her left side. No open cuts. This was a mechanical fall without signs of neurologic compromise and no issues after the fall. Patient this AM reports mild pain at sites of trauma but well controlled on Tylenol. She agrees with PT/OT eval for possible rehab, as she admits to feeling weaker lately. Tolerating PO diet. Denies BECK, dizziness, nausea, vomiting, SOB, CP, palp, abd pain. Review of Systems Review of Systems: per subjective Physical Exam Physical Exam: GENERAL: A&Ox3. NAD. CHEST/LUNGS: CTAB A/P. Decreased air movement at bases. No crackles, wheezes, rales, rhonchi. HEART: Irregularly irregular. No m/g/r. No carotid bruits. ABDOMEN: NT/ND, soft. BS+ x4 EXTREMITIES: No cyanosis, no clubbing, no edema SKIN: Warm and dry. No rashes or lesions. Results & Data Results & Data ([facility]) Vital Signs (Past 12 Hours) Vital Signs Temp Pulse Pulse Resp BP Pulse Ox 03/24/21 07:15 36.6 C 92 H 20 122/76 95 03/23/21 22:00 36.7 C 70 18 106/63 94 Resident Activity Tracking Resident Involvement: Resident Care Provided Care Provided: Adult Hospital Medicine
[2021-03-24] MEDS: PANTOprazole 40 MG TAB PO SCH ×2 (08:44→16:48)
[2021-03-24] MEDS: CEROVITE ADV FORMULA TAB PO SCH ×3 (08:45→20:33)
[2021-03-24] MEDS: POTASSIUM CHLORIDE 10 MEQ TABCR PO SCH (08:45)
[2021-03-24] MEDS: FUROSEMIDE 20 MG TAB PO SCH (08:45)
[2021-03-24] MEDS: CALCIUM 600MG + VIT D 400 IU TAB PO SCH ×2 (08:46→20:32)
[2021-03-24] MEDS: cloNIDine HCL 0.1 MG TAB PO SCH ×2 (08:46→20:33)
[2021-03-24] MEDS: sulfaSALAzine 500 MG TABLET PO SCH ×2 (10:11→20:33)
[2021-03-24] MEDS: CLOPIDOGREL BISULFATE 75 MG TAB PO SCH (12:44)
[2021-03-24] MEDS: METOPROLOL SUCC 50MG EXT REL TAB PO SCH (12:44)
[2021-03-24] MEDS: CHOLECALCIFEROL 1,000 UNITS 25 MCG TAB PO SCH (12:44)
[2021-03-24] MEDS ORDERED: ACETAMINOPHEN 325 MG TAB PO PRN (15:52)
[2021-03-24] MEDS: ROSUVASTATIN CALCIUM 5 MG TAB PO SCH (16:48)
[2021-03-24] MEDS ORDERED: WARFARIN SOD 1 MG TAB PO ONE (17:48)
--- NOTE | 2021-03-24 17:52 | Billing Data ---
Date of Service March 24, 2021 Coding Level of Care Code 00462 Subseq Hosp Care Lvl 2
[2021-03-24] MEDS: MERCAPTOPURINE 50 MG TAB PO SCH (20:32)
[2021-03-24] MEDS: FAMOTIDINE 20 MG TAB PO SCH (20:33)
[2021-03-24] MEDS: traZODone HCL 50 MG TAB PO SCH (20:33)
[2021-03-25 08:00] VITALS: BP 149/74; PULSE 77; TEMP 97.9; O2SAT 94
--- NOTE | 2021-03-25 08:10 | Discharge Summary ---
Date of Service March 25, 2021 Admission HPI Per Admitting Provider Mrs. Meehan is an 86 yo woman who presented to the [facility] ED for evaluation of acute onset abdominal pain. It is localized to the epigastrium and RUQ. It started at about 7pm on 03/20/21 after having dinner at a friend's house. She thinks she may have over-ate. She endorses associated vomiting - but no diarrhea or fevers. Of note, she has been admitted in the past for high grade bowel obstructions and pancreatitis - initially thought to be due to SMA syndrome, however abdominal CT done on 06/03/20 showed no implication of SMA or external compression by other structures. More recently, she had a CTA of the abdomen and pelvis in the [facility] in 12/2020 as part of her TAVR pre-operative evaluation, which showed no significant abnormalities. She has been evaluated by [facility] for this issue in the past. In 2019 she underwent an upper endoscopy to the jejunum during which biopsies were obtained of the stomach and duodenum - no extrinsic obstruction was noted; pathology returned showing chronic gastritis. She does have a history of multiple surgeries to the abdomen (appendectomy, hiatal hernia repair, uterine mass resection). She denies any etoh intake. In the ED, she was febrile, not tachycardiac. Her WBC, Hgb and platelets were WNL. INR was elevated to 3.7. CMP was normal. Trop was undetectable. Lipase elevated to 5498. UA showing trace LE, neg nitrite and neg bacteria. CXR showing no acute process in the chest. CT of abdomen and pelvis showing fluid distention of esophagus, stomach and proximal duodenal transition, raising the possibility of external compression by the SMA; small b/l pleural effusions; a small non- obstructing L kidney stone. An NG tube was placed and KUB confirmed proper positioning. It was turned to continuous suction. She was given zofran, morphine and 500cc of NSS. Principal Diagnosis SBO Discharge Exam GENERAL: A&Ox3. NAD. CHEST/LUNGS: CTAB A/P. Decreased air movement at bases. No crackles, wheezes, rales, rhonchi. HEART: Irregularly irregular. No m/g/r. No carotid bruits. ABDOMEN: NT/ND, soft. BS+ x4 EXTREMITIES: No cyanosis, no clubbing, no edema SKIN: Warm and dry. No rashes or lesions. Discharge Data Allergies Allergy/AdvReac Type Severity Reaction Status Date / Time Penicillins Allergy Severe THROAT Verified 03/20/21 23:43 SWELLS, PASSES OUT aspirin Allergy Intermediate WELTS Verified 03/20/21 23:43 AROUND EYES [place] And Derivatives Allergy Mild Runny/stuffy Verified 03/20/21 23:43 nose mayonnaise Allergy Unknown Verified 03/20/21 23:43 chicken derived AdvReac Intermediate DIARRHEA Verified 03/20/21 23:43 chocolate flavor AdvReac Intermediate DIARRHEA Verified 03/20/21 23:43 lactose AdvReac Intermediate GI upset Verified 03/20/21 23:43 grass pollen-perennial rye, AdvReac Mild RUNNY Verified 03/20/21 23:43 standar NOSE/SINUS ISSUES mushroom AdvReac Mild GI SYMPTOMS Verified 03/20/21 23:43 pollen extracts AdvReac Mild RUNNY Verified 03/20/21 23:43 NOSE/SINUS ISSUES soy AdvReac Mild GI SYMPTOMS Verified 03/20/21 23:43 Nqtempa-MTB-GpL Reductase AdvReac Mild DID NOT Verified 03/20/21 23:43 Inhibitor WORK [Xdzswox-Fqr-Dpa Reductase Inhibitor] lorazepam AdvReac Hallucinati Verified 03/20/21 23:43 ng Consultations 03/21/21 02:35 ED Decision to Admit Stat 03/21/21 03:46 Consult Gastroenterology Routine Ordered Studies 03/20/21 22:48 CT abd pelvis wo con Urgent 03/22/21 08:00 CT abdomen w IV con Routine Hospital Course (1) Small bowel obstruction: Mrs. Meehan is an 86 yo woman with a history of high grade gastric outlet obstruction who presented to [facility] for acute onset abdominal pain and vomiting. Small bowel obstruction: - CT abdomen showing fluid distention of esophagus, stomach and proximal duodenal transition; suspicion of external compression of SMA; however previous imaging studies have showed no evidence of SMA syndrome -Repeat CT abdomen on 03/22 showing resolution of obstruction - NG tube in place -- low-intermittent suction - Famotidine 20mg IV q12h - Gastro consult -Impression is resolution of the duodenal obstruction with gastric deco mpression. 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 -Recommend nutrition evaluation and cautiously advance to low residue diet - Tolerating solid food at time of discharge -- continue low-residue/low-fiber diet going forward Atrial fibrillation: - permanent - on chronic anticoag with Coumadin - rate control with diltiazem and metoprolol -- initially held while NPO - Continue home metoprolol and diltiazem - Monitor HR - Consider additional oral metoprolol tartrate doses as needed for elevated HR if BP allows Fall/weakness: - PT/OT consult -- SNF recommended - DC to SNF on 03/25 Elevated INR: - INR supratherapeutic initially - goal 2.0-2.5 - INR 2.5 on 03/24 - COntinue Coumadin at discharge with regular INR checks per PCP Hypoxia -resolved -Acute decompensation from CHF versus atelectasis, or combination - Received total 2 doses of Lasix 20mg - Incentive spirometry ordered, instructed on use - Saturating adequately on room air as of 03/23 Delirium: -Likely episode of hospital delirium overnight 03/21-03/22 leading to removal of NG tube/agitation -Frequent reorientation -Avoid sedating medications as much as possible Pancreatitis: - lipase elevated to 5489 on admission - No abd symptoms at this point - IV Tylenol for pain, Zofran for nausea - suspect related to obstructive process of small bowel >> versus adverse effect of mercaptopurine - no etoh intake, normal Ca level, history of normal triglyceride levels; no known pancreatic structural abnormalities (organ noted to be atrophic on previous scans) Aortic stenosis: - s/p TAVR CHF (congestive heart failure): - chronic - Continue home Lasix and metoprolol Ulcerative colitis: - continue mercaptopurine and sulfasalazine Diet: Low fiber diet Dispo: Transfer to SNF Code: DNR/DNI (2) Pancreatitis: (3) Elevated INR: (4) Atrial fibrillation: (5) CHF (congestive heart failure): (6) Ulcerative colitis: Total Time Total Time Spent Total Time Spent (In Minutes): <30 Discharge Plan Discharge Items Patient Disposition: [facility] Reason For Visit: ABDOMINAL PAIN Discharge Diagnosis: SBO Condition on Discharge: Fair Activity: Per Instructions section Non-emergency contact: Primary Care Provider Call non-emergency contact if: you have any medication questions Follow-up/Referrals: Ole Spangler MD [Primary Care Provider] - Diet: Low Fiber Addtl Attending Provider Instructions: Mrs. Meehan is an 86 yo woman with a history of high grade gastric outlet obstruction who presented to [facility] for acute onset abdominal pain and vomiting. Small bowel obstruction: - CT abdomen showing fluid distention of esophagus, stomach and proximal duodenal transition; suspicion of external compression of SMA (per STATRAD); however previous imaging studies have showed no evidence of SMA syndrome -Repeat CT abdomen on 03/22 showing resolution of obstruction - NG tube in place -- low-intermittent suction - Famotidine 20mg IV q12h - Gastro consult -Impression is resolution of the duodenal obstruction with gastric decompression. 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 -Recommend nutrition evaluation and cautiously advance to low residue diet - Tolerating solid food at time of discharge -- continue low-residue/low-fiber diet going forward Atrial fibrillation: - permanent - on chronic anticoag with Coumadin - rate control with diltiazem and metoprolol -- initially held while NPO - Continue home metoprolol and diltiazem - Monitor HR - Consider additional oral metoprolol tartrate doses as needed for elevated HR if BP allows Fall/weakness: - PT/OT consult -- SNF recommended - DC to SNF on 03/25 Elevated INR: - INR supratherapeutic initially - goal 2.0-2.5 - INR 2.5 on 03/24 - COntinue Coumadin at discharge with regular INR checks per PCP Hypoxia -resolved -Acute decompensation from CHF versus atelectasis, or combination - Received total 2 doses of Lasix 20mg - Incentive spirometry ordered, instructed on use - Saturating adequately on room air as of 03/23 Delirium: -Likely episode of hospital delirium overnight 03/21-03/22 leading to removal of NG tube/agitation -Frequent reorientation -Avoid sedating medications as much as possible Pancreatitis: - lipase elevated to 5489 on admission - No abd symptoms at this point - IV Tylenol for pain, Zofran for nausea - suspect related to obstructive process of small bowel >> versus adverse effect of mercaptopurine - no etoh intake, normal Ca level, history of normal triglyceride levels; no known pancreatic structural abnormalities (organ noted to be atrophic on previous scans) Aortic stenosis: - s/p TAVR CHF (congestive heart failure): - chronic - Continue home Lasix and metoprolol Ulcerative colitis: - continue mercaptopurine and sulfasalazine Diet: Low fiber diet Dispo: Transfer to SNF Code: DNR/DNI Pending Studies at Discharge: No Stand-Alone Forms: My [facility] Skilled Items Patient informed of condition?: Yes DNR: Yes Discharge Level of Care: Skilled Communicable Disease: No Discharge Prognosis: Stable Lines: None Urinary Catheter: No Medications and DC Order Prescriptions: Continued warfarin 3 mg tablet See Rx Instructions PO UD RF: 0 cholecalciferol (vitamin D3) [Vitamin D3] 50 mcg (2,000 unit) capsule 2,000 unit PO DAILY@1200 RF: 0 calcium carb and citrate-vitD3 [Citracal-D3 Slow Release] 600 mg calcium- 500 unit tablet extended release 1 tab PO BID RF: 0 Adult One Daily Gummies 200 mcg tablet,chewable 1 tab PO DAILY@1200 RF: 0 trazodone 50 mg tablet 25 mg PO HS Qty: 45 RF: 3 (DME) [facility] See Dose Instructions .ROUTE .MEDSUPPLY Qty: 1 RF: 0 metoprolol succinate 100 mg tablet extended release 24 hr 200 mg PO DAILY@1200 Qty: 180 RF: 3 mercaptopurine 50 mg tablet 75 mg PO QPM RF: 0 potassium chloride 10 mEq capsule, extended release 10 meq PO DAILY RF: 0 furosemide [Lasix] 20 mg tablet 20 mg PO DAILY RF: 0 tramadol 50 mg tablet 50 mg PO Q8 PRN (Reason: Pain) RF: 0 famotidine 20 mg tablet 20 mg PO HS RF: 0 PreserVision AREDS 7,160 unit- 113 mg-100 unit Tablet 1 tab PO BID RF: 0 clonidine HCl 0.1 mg tablet 0.1 mg PO BID RF: 0 sulfasalazine 500 mg tablet 1,000 mg PO BID RF: 0 diltiazem HCl [Cardizem CD] 360 mg capsule,extended release 24hr 360 mg PO DAILY@1200 RF: 0 clopidogrel [Plavix] 75 mg tablet 75 mg PO DAILY@1200 RF: 0 pantoprazole [Protonix] 40 mg tablet,delayed release (DR/EC) 40 mg PO BIDM RF: 0 rosuvastatin 5 mg tablet 5 mg PO QDD RF: 0 loratadine [Claritin] 10 mg Tablet 10 mg PO HS PRN (Reason: Allergy Symptoms) RF: 0 Restasis 0.05 % Dropperette 1 drp OPB Q12H RF: 0 Prolia 60 mg/mL syringe 60 mg SUBCUT .COMPLEX RF: 0 Discontinued doxycycline hyclate 100 mg capsule 100 mg PO ONCE Qty: 10 RF: 0 Discharge Orders: Discharge Order (Routine); Ordered 03/25/21 [facility] Admit Date/Time: 03/21/21 03:00 Attending Provider: Pee Valencia Admit Provider: Yecenia Kuo Primary Care Provider: Ole Spangler Other Providers: Bubba Duncan ; Sigrid Duran ; Tarik Mercado ; Khurram Parkinson ; Antony Rodriguez V. ; Armaan Marroquin ; Murphy Gamino ; [facility] Other Interventions: Discharge Summary Assessment (RN) Last Done: 03/25/21 09:00 Supervising Physician Co-Signing Physician Notes I personally examined the patient and verified all fermin points of history and exam, discussed case, and agree with decision making with Dr Garsia Able to go to the [facility] today. No new complaints. Patient happy about disposition. vitals noted nad, pleasantly nad. heent nc at mmm. breathing unlabored no accessory muscles good effort no respiratory distress. SBO - appears clinically and radiographically to be resolving. ?SMA syndrome given that it can be dynamic. that said, would hesitate to subject an 86yo to the kind of surgical intervention typically utilized for this, particularly with how quickly this resolved w supportive care and with it not being totally clear that it was/is SMA syndrome rather than adhesions. Dietary management and supportive care hypoxia - probably combination of acute diastolic decompensation of CHF (echo from about a month ago did show LVH, mod MR), atelectasis, or both. clinically nothing appearing consistent w pneumonia, and high inr makes PE exceedingly unlikely. Fortunately this resolved afib rvr - was off home meds when npo - improving, and now rates are much more reasonably controlled. INR trended down to 2.5will resume Coumadinlower dose today, and then home dosing tomorrow. Continue to follow INR as outpatient delirium - waxing and waning, improving overall but SNF appears most appropriate disposition. Stable for dispo to SNF Resident Activity Tracking Resident Involvement: Resident Care Provided Care Provided: Adult Hospital Medicine
[2021-03-25] MEDS: RESTASIS~ORDER AWAITING ACTION SCH (08:20)
[2021-03-25] MEDS: PANTOprazole 40 MG TAB PO SCH (08:21)
[2021-03-25] MEDS: cloNIDine HCL 0.1 MG TAB PO SCH (08:21)
[2021-03-25] MEDS: CALCIUM 600MG + VIT D 400 IU TAB PO SCH (08:21)
[2021-03-25] MEDS: CEROVITE ADV FORMULA TAB PO SCH (08:22)
[2021-03-25] MEDS: POTASSIUM CHLORIDE 10 MEQ TABCR PO SCH (08:22)
[2021-03-25] MEDS: FUROSEMIDE 20 MG TAB PO SCH (08:22)
[2021-03-25] MEDS: sulfaSALAzine 500 MG TABLET PO SCH (08:22)
[2021-03-25] MEDS ORDERED: WARFARIN SOD 3 MG TAB PO SCH (16:00)
--- NOTE | 2021-03-25 18:16 | Billing Data ---
Date of Service March 25, 2021 Coding Level of Care Code D/C DAY MANAGEMENT <30 MINS
== END 2021-03-25 11:59 | DRG 393 ==
LOC: ED 22:30 → 3N 03-21 03:00 → SUATTDRO 03-21 03:00 → 3N 03-21 04:33

== ENCOUNTER 2022-12-26 08:53 | Inpatient (IN) ==
[2022-12-26 09:33] LABS: Basophils # (auto) 0.07 K/uL (0-0.2); Basophils % (auto) 1.5 %; Eosinophils # (auto) 0.11 K/uL (0-0.50); Eosinophils % (auto) 2.3 %; Hemoglobin 11.8 g/dl (12.0-16.0); Immature Granulocytes # (auto) 0.01 K/uL (0.01-0.20); Immature Granulocytes % (auto) 0.2 %; Lymphocytes # (auto) 0.93 K/uL (1.2-3.4); Lymphocytes % (auto) 19.7 %; Mean Corpuscular Hemoglobin 34.4 pg (25.0-34.0); Mean Corpuscular Hgb Conc 32.8 g/dL (32.0-36.0); Monocytes # (auto) 0.84 K/uL (0.11-0.59); Monocytes % (auto) 17.8 %; Neutrophils # (auto) 2.76 K/uL (1.40-6.50); Neutrophils % (auto) 58.5 %; Nucleated RBC # (auto) 0.02 K/uL (0-0.12); Nucleated RBC % (auto) 0.4 %; Platelet Count 222 K/uL (130-400); RDW Coefficient of Variation 17.3 % (11.5-14.5); RDW Standard Deviation 66.9 fL (36.4-46.3); Red Blood Count 3.43 M/uL (4.20-5.40); White Blood Count 4.72 K/ul (4.8-10.8)
--- NOTE | 2022-12-26 09:45 | Emergency Department Note ---
Impression & Plan Acute pain of left lower extremity ED Provider Note INFORMANT: Patient ED PROVIDER(S): Honorio Mart MD CHIEF COMPLAINT: Left leg pain PLAN: Disposition: Admitted Condition: Good Outpatient prescription management: none Referral: None MEDICAL DECISION MAKING: Patient presented to emergency room complaining of left leg pain and was concerned about a blood clot. Ultrasound imaging of the venous and arterial system was ordered. Blood work was done and was unremarkable except for the fact that she was therapeutic on her INR of 2.9. The patient had no evidence of DVT on imaging. The patient was found to have significant stenosis of the arterial system. I did consult with her vascular surgeon, Dr. Duncan. He recommended admission. As the patient is thoroughly anticoagulated on warfarin no heparin was ordered. He will evaluate the patient for angiography. C onsultation was made with Dr. Huber Chaparro of the [facility] service. Case discussed and diagnostics were reviewed. Patient was evaluated in the ER for further management. Discussed with manager clinical applications After review of the information above and other included data, I feel the pat ient requires admission. Triage Nursing notes reviewed and agree them. Vital Signs: reviewed and remarkable for no significant abnormalities Prior /Outside records reviewed: Prior vascular surgery reports reviewed. Differential diagnosis: DVT, PAD, musculoskeletal, infection, joint effusion, trauma, lymphedema, idiopathic, CHF, as well as other pathologies. Diagnostics, as interpreted by me: ECG: none Cardiac Monitoring: Cardiac monitoring ordered by me: The patient was placed on continuous cardiac monitoring and observed. It revealed a normal sinus rhythm at 65 beats per minute without ectopy or evidence of dysrhythmia. Medical decision rules: none Imaging studies: Ultrasound venous and arterial studies performed and revealed significant arterial stenosis as above. HPI: The patient is a 87year old female on anticoagulation with a history of DVT who presents to the Emergency Room with complaints of left leg pain. This started over the last few days and is localized from behind the knee to the foot. Patient states this feels similar in the past when she had a blood clot. She has not missed any doses of her Plavix or warfarin. The patient does note that a few weeks ago she was diagnosed with COVID while on vacation. Patient did travel to [place]. The patient also notes the following associated symptoms, numbness/tingling sensation in the toes. The patient has taken Tylenol for relieving factors. Current pain is rated as 2/10. Pt denies leg swelling, trauma, fevers, chills, diaphoresis, chest pain, breathing difficulties, nausea, vomiting, abdominal pain, sciatica-like back pain, weakness, lymphadenopathy, rash, or other complaints. PAST MEDICAL HISTORY: See Below, anticoagulated, ischemia of the left lower extremity PAST SURGICAL HISTORY: See Below, SOCIAL HISTORY: See Below, retired HOME MEDICATIONS: See Below ALLERGIES: See Below VITALS: See Below PHYSICAL EXAMINATION: GENERAL: Awake, alert, well-appearing, in no distress HENT: Normocephalic, atraumatic. Oropharynx unremarkable. EYES: Normal conjunctiva. Sclera non-icteric. NECK: Inspection normal. Non-tender. Supple. No nuchal rigidity. FROM. No masses. RESPIRATORY: Clear to auscultation. No wheezes. No rales. Normal respiratory effort. CARDIAC: Normal rate. Irregular rhythm. No murmurs. No rubs. Extremities warm and well perfused. No JVD. No significant coolness to the left lower extremity appreciated. GI: Soft, non-distended. No tenderness to palpation. No rebound or guarding. No masses. RECTAL: Deferred. MUSCULOSKELETAL: Atraumatic. Chest examination reveals no tenderness. The back is symmetrical on inspection without obvious abnormality. There is no CVA tenderness to palpation. No joint edema. LOWER EXTREMITIES: Calves are equal size bilaterally and the left is mildly- tender. No edema. No discoloration. NEURO: Normal sensorium. No sensory or motor deficits noted. SKIN: No rash or jaundice noted. Past Med/Surg History Medical History Acute pancreatitis Aortic stenosis Breast cancer (08/27/15) Breast cancer CHF (congestive heart failure) Compression fracture of lumbar vertebra Facial basal cell cancer Gastric outlet obstruction GERD (gastroesophageal reflux disease) HLD (hyperlipidemia) HTN (hypertension) Hypertensive urgency Incarcerated paraesophageal hernia Left sided abdominal pain Lower extremity pain, left On anticoagulant therapy Osteoarthritis Pacemaker Paraesophageal hiatal hernia SSS (sick sinus syndrome) (02/18/14) Stroke Ulcerative colitis Ulcerative colitis Unintentional weight loss Vomiting Surgical History H/O total hysterectomy History of appendectomy History of cataract surgery History of colonoscopy History of esophagogastroduodenoscopy (EGD) History of herniorrhaphy History of kyphoplasty History of tonsillectomy and adenoidectomy History of tooth extraction Hx of lumpectomy Family History Brother Coronary heart disease Mother Coronary heart disease Benign essential HTN Myocardial infarction Stroke Other PVD (peripheral vascular disease) Denies family history of Ovarian cancer Prostate cancer Breast cancer Lung cancer Colorectal cancer Social History Smoking Status: Never smoker Second Hand Exposure: No; Do You Dip or Chew Tobacco: No; Hx Alcohol Use: Yes Alcohol type: wine Alcohol Intake Frequency: Monthly or Less Hx Substance Use: No Preferred Language: Nauruan Communication Ability: Effective Visual Impairment: Limited Hearing Ability: Normal 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: No Beliefs That Will Affect Care: None marital status: Single Current Living Situation: Personal Care Facility Current Living Situation Comment: [facility] current occupational status: retired How many Children do You have: 1 Feels Safe at Home: Yes Childhood Exposure to Second-Hand Smoke: No caffeine: Yes (drinks soda ) Dental Care, Regularly: Yes Physical Activity Frequency: Daily Physical Activity Frequency Comment: walks daily Seatbelt Use: always Sunscreen Use: No Assistive Devices: Glasses and Walker Allergies Allergies Allergy/AdvReac Type Severity Reaction Status Date / Time Penicillins Allergy Severe THROAT Verified 10/13/22 11:18 SWELLS, PASSES OUT aspirin Allergy Intermediate WELTS Verified 10/13/22 11:18 AROUND EYES Bendena And Derivatives Allergy Mild Runny/stuffy Verified 10/13/22 11:18 nose mayonnaise Allergy Unknown Verified 10/13/22 11:18 chicken derived AdvReac Intermediate DIARRHEA Verified 10/13/22 11:18 chocolate flavor AdvReac Intermediate DIARRHEA Verified 10/13/22 11:18 lactose AdvReac Intermediate GI upset Verified 10/13/22 11:18 grass pollen-perennial rye, AdvReac Mild RUNNY Verified 10/13/22 11:18 standar NOSE/SINUS ISSUES mushroom AdvReac Mild GI SYMPTOMS Verified 10/13/22 11:18 pollen extracts AdvReac Mild RUNNY Verified 10/13/22 11:18 NOSE/SINUS ISSUES soy AdvReac Mild GI SYMPTOMS Verified 10/13/22 11:18 [id number]-WUD-[id number] Reductase AdvReac Mild DID NOT Verified 10/13/22 11:18 Inhibitor WORK [Kfduyrl-Ejs-Nxf Reductase Inhibitor] lorazepam AdvReac Hallucinati Verified 10/13/22 11:18 ng Home Meds Home Medications Medication Instructions Recorded Confirmed cholecalciferol (vitamin D3) 50 2,000 unit PO DAILY@1200 07/05/20 12/26/22 mcg (2,000 unit) capsule (Vitamin D3) multivitamin with minerals-folic 1 tab PO DAILY@1200 07/05/20 12/26/22 acid 200 mcg chewable tablet (Adult One Daily Gummies) cyclosporine 0.05 % eye drops in a 1 drp OPB Q12H 11/23/20 12/26/22 dropperette (Restasis) loratadine 10 mg tablet (Claritin) 10 mg PO HS PRN Allergy Symptoms 11/23/20 12/26/22 denosumab 60 mg/mL subcutaneous 60 mg subcut .COMPLEX 02/25/21 12/26/22 syringe (Prolia) calcium carb,cit ER 600 mg-vit D3 1 tab PO BID 04/07/21 12/26/22 12.5 mcg (500 unit) tablet,ext.rel (Citracal-D3 Slow Release) vitamins A,C,N-kxrf-cwqssl 2,148 1 tab PO BID 04/07/21 12/26/22 mcg-113 mg-45 mg-17.4 mg tablet (PreserVision AREDS) acetaminophen 325 mg tablet 650 mg PO Q4H PRN pain 07/19/21 12/26/22 pantoprazole 40 mg tablet,delayed 40 mg PO BIDM 12/26/22 12/26/22 release pantoprazole 40 mg tablet,delayed 40 mg PO BIDM 12/26/22 12/26/22 release potassium chloride 10 mEq 10 meq PO QDB 12/26/22 12/26/22 capsule,extended release sulfasalazine 500 mg tablet 1,000 mg PO BIDM 12/26/22 12/26/22 trazodone 50 mg tablet 25 mg PO HS 12/26/22 12/26/22 Previous Rx's Medication Instructions Recorded walker #1 ea 03/11/19 doxycycline hyclate 100 mg capsule 100 mg PO ONCE PRN dental work #10 05/04/21 caps mercaptopurine 50 mg tablet See Rx Instructions .Route 01/04/22 .COMPLEX #135 tabs furosemide 20 mg tablet (Lasix) 20 mg PO DAILY #90 tabs 03/29/22 famotidine 20 mg tablet 20 mg PO HS #90 tabs 04/05/22 metoprolol succinate 100 mg 200 mg PO DAILY@1200 #180 tabs 04/05/22 tablet,extended release 24 hr clonidine HCl 0.1 mg tablet 0.1 mg PO TID #270 tabs 04/26/22 warfarin 3 mg tablet See Rx Instructions PO UD #140 tabs 07/18/22 clopidogrel 75 mg tablet (Plavix) 75 mg PO DAILY #90 tabs 08/23/22 rosuvastatin 5 mg tablet 5 mg PO DAILY #90 tabs 08/23/22 diltiazem HCl 360 mg 360 mg PO DAILY #90 caps 10/02/22 capsule,extended release 24 hr (Cardizem CD) Results & Data (ED) Vital Signs Vital Signs - 24 hr 12/26/22 08:57 12/26/22 09:06 12/26/22 12:06 Temperature 36.6 C Temperature Source Temporal Artery Scan Pulse Rate 70 Pulse Rate [Right Finger] 83 Respiratory Rate 18 18 20 Respiratory Effort / Characteristics Non-Labored Spontaneous Non-Labored Spontaneous Respiratory Depth Normal Normal Respiratory Pattern Regular Regular Blood Pressure 166/77 H Blood Pressure [Right Arm] 184/98 H Blood Pressure Mean 106 Blood Pressure Mean [Right Arm] 126 Pulse Oximetry 98 96 Oxygen Delivery Method Room Air Room Air Sepsis Recent Fever Within 48 Hours No Sepsis New/Unexplained Change in Mental Status No Sepsis Action Taken by Nursing No Action Required Laboratory Data 12/26/22 09:15 12/26/22 09:15 Lab Results 12/26/22 12/26/22 12/26/22 Range/Units 09:15 09:15 09:15 WBC 4.72 L (4.8-10.8) K/ul RBC 3.43 L (4.20-5.40) M/uL Hgb 11.8 L (12.0-16.0) g/dl Hct 36.0 L (37.0-47.0) % MCV 105.0 H (80.0-100.0) fL MCH 34.4 H (25.0-34.0) pg MCHC 32.8 (32.0-36.0) g/dL RDW Std Deviation 66.9 H (36.4-46.3) fL RDW Coeff of Terrance 17.3 H (11.5-14.5) % Plt Count 222 (130-400) K/uL MPV 11.0 (9.4-12.4) fL Immature Gran % (Auto) 0.2 % Neut % (Auto) 58.5 % Lymph % (Auto) 19.7 % [place] % (Auto) 17.8 % Eos % (Auto) 2.3 % Baso % (Auto) 1.5 % Neut # (Auto) 2.76 (1.40-6.50) K/uL Lymph # (Auto) 0.93 L (1.2-3.4) K/uL [place] # (Auto) 0.84 H (0.11-0.59) K/uL Eos # (Auto) 0.11 (0-0.50) K/uL Baso # (Auto) 0.07 (0-0.2) K/uL Immature Gran # (Auto) 0.01 (0.01-0.20) K/uL Absolute Nucleated RBC 0.02 (0-0.12) K/uL Nucleated RBC % (auto) 0.4 % PT 29.8 H (9.0-12.0) Seconds INR 2.9 H (0.9-1.1) APTT 38.3 H (21.0-31.0) Seconds PTT Ratio 1.4 Sodium 139 (136-145) mmol/L Potassium 4.5 (3.5-5.1) mmol/L Chloride 103 (98-107) mmol/L Carbon Dioxide 29 (21-32) mmol/L Anion Gap 7 (3-11) BUN 17 (6-23) mg/dl Creatinine 0.76 (0.6-1.2) mg/dl Est Cr Clr Drug Dosing Not Reportable Est GFR ( Amer) 81.2 ml/min Est GFR (Non-Af Amer) 70.0 ml/min BUN/Creatinine Ratio 22.4 H (10-20) Glucose 123 H (70-99(Fasting)) mg/dl Calcium 9.8 (8.6-10.3) mg/dl Total Bilirubin 0.6 (0.2-1.0) mg/dl AST 29 (13-39) U/L ALT 23 (7-52) U/L Alkaline Phosphatase 48 (34-104) U/L Total Protein 6.8 (6.0-8.3) gm/dl Albumin 4.0 (3.4-5.0) gm/dl Globulin 2.8 (2.5-4.0) gm/dl Albumin/Globulin Ratio 1.4 (0.9-2) Administered Medications Discontinued Medications Clonidine HCl (Clonidine Hcl 0.1 Mg Tab) 0.1 mg PO NOW STA Stop: 12/26/22 14:50 Last Admin: 12/26/22 15:27 Dose: 0.1 mg Documented By: SANDRAW Metoprolol Succinate (Metoprolol Succ 50mg Ext Rel Tab) 200 mg PO NOW STA Stop: 12/26/22 16:23 Last Admin: 12/26/22 17:01 Dose: 200 mg Documented By: PREMA Imaging Data Radiologist's Impression: Venous Doppler Study 12/26/22 09:07 ULTRASOUND LEFT LOWER EXTREMITY VENOUS CLINICAL HISTORY: Left leg pain. COMPARISON STUDY: Left lower extremity venous ultrasound dated 11/23/2020. TECHNIQUE: Real-time, grayscale, and color Doppler sonography of the deep veins of the left lower extremity was performed from the inguinal crease to the calf. Compression and augmentation were utilized. FINDINGS: There is no sonographic evidence of deep venous thrombosis identified in the left lower extremity. The common femoral, superficial femoral, and popliteal veins are patent and normally compressible. The greater saphenous vein and the profunda femoris vein at the junction with the common femoral vein are clear. The visualized calf veins are patent. IMPRESSION: There is no sonographic evidence of deep venous thrombosis identified in the left lower extremity. ACT 112: Negative or not required by law. Electronically signed by: Jordi Parrish M.D. 12/26/2022 12:16 PM Duplex Scan Lower Extremity Artery 12/26/22 09:45 LEFT LOWER EXTREMITY ARTERIAL DOPPLER ULTRASOUND CLINICAL HISTORY: Left leg pain. COMPARISON STUDY: Left lower extremity arterial Doppler ultrasound November 23, 2020. TECHNIQUE: Grayscale, color and duplex Doppler sonography of the arterial system of the left lower extremity was performed. FINDINGS: There is extensive plaque within the left lower extremity. Triphasic flow is noted within the left common femoral artery. There is monophasic flow within the proximal left superficial femoral artery. There is a suspected stent within the left superficial femoral artery which appears occluded. No flow is identified within this portion of the vessel. A collateral arises from the p roximal SFA. There is an elevated peak systolic velocity of 307 cm/s within the proximal aspect of the suspected collateral vessel. Within the distal left superficial femoral artery, there is dampened, monophasic flow. There is also monophasic flow within the left popliteal, anterior tibial and dorsalis pedis vessels. Markedly dampened monophasic waveforms within the left posterior tibial and peroneal arteries are noted. IMPRESSION: 1. Extensive atherosclerotic plaque within the left lower extremity. 2. Occlusion of the suspected left superficial femoral artery stent. Markedly dampened, monophasic flow within the left calf vessels, as described above. 3. Elevated velocity within a collateral vessel arising from the left superficial femoral artery which may reflect a stenosis. ACT 112: Negative or not required by law. Electronically signed by: Romario Saenz M.D. 12/26/2022 12:22 PM Discharge Plan Visit Data Chief Complaint: Leg Injury/Pain Stated Complaint: L LEG PAIN/NUMB, ED Provider: Honorio Mart Discharge Problem: Acute pain of left lower extremity
[2022-12-26 09:46] LABS: Alanine Aminotransferase 23 U/L (7-52); Albumin Globulin Ratio 1.4 (0.9-2); Alkaline Phosphatase 48 U/L (34-104); Anion Gap 7 (3-11); Aspartate Aminotransferase 29 U/L (13-39); BUN Creatinine Ratio 22.4 (10-20); Bilirubin,Total 0.6 mg/dl (0.2-1.0); Blood Urea Nitrogen 17 mg/dl (6-23); Calcium 9.8 mg/dl (8.6-10.3); Carbon Dioxide 29 mmol/L (21-32); Chloride 103 mmol/L (98-107); Est GFR (African American) 81.2 ml/min; Globulin 2.8 gm/dl (2.5-4.0); Glucose 123 mg/dl (70-99(Fasting)); Potassium 4.5 mmol/L (3.5-5.1); Sodium 139 mmol/L (136-145); Total Protein 6.8 gm/dl (6.0-8.3)
[2022-12-26 10:08] LABS: INR 2.9 (0.9-1.1); Partial Thromboplastin Ratio 1.4; Partial Thromboplastin Time 38.3 Seconds (21.0-31.0); Prothrombin Time 29.8 Seconds (9.0-12.0)
--- NOTE | 2022-12-26 12:17 | Ultrasound Report ---
ULTRASOUND LEFT LOWER EXTREMITY VENOUS CLINICAL HISTORY: Left leg pain. COMPARISON STUDY: Left lower extremity venous ultrasound dated 11/23/2020. TECHNIQUE: Real-time, grayscale, and color Doppler sonography of the deep veins of the left lower ext remity was performed from the inguinal crease to the calf. Compression and augmentation were utilized . FINDINGS: There is no sonographic evidence of deep venous thrombosis identified in the left lower ext remity. The common femoral, superficial femoral, and popliteal veins are patent and normally compress ible. The greater saphenous vein and the profunda femoris vein at the junction with the common femora l vein are clear. The visualized calf veins are patent. IMPRESSION: There is no sonographic evidence of deep venous thrombosis identified in the left lower e xtremity. ACT 112: Negative or not required by law. Electronically signed by: Jordi Parrish M.D. 12/26/2022 12:16 PM
--- NOTE | 2022-12-26 12:23 | Ultrasound Report ---
LEFT LOWER EXTREMITY ARTERIAL DOPPLER ULTRASOUND CLINICAL HISTORY: Left leg pain. COMPARISON STUDY: Left lower extremity arterial Doppler ultrasound November 23, 2020. TECHNIQUE: Grayscale, color and duplex Doppler sonography of the arterial system of the left lower ex tremity was performed. FINDINGS: There is extensive plaque within the left lower extremity. Triphasic flow is noted within t he left common femoral artery. There is monophasic flow within the proximal left superficial femoral artery. There is a suspected stent within the left superficial femoral artery which appears occluded. No flow is identified within this portion of the vessel. A collateral arises from the proximal SFA. There is an elevated peak systolic velocity of 307 cm/s within the proximal aspect of the suspected c ollateral vessel. Within the distal left superficial femoral artery, there is dampened, monophasic fl ow. There is also monophasic flow within the left popliteal, anterior tibial and dorsalis pedis vesse ls. Markedly dampened monophasic waveforms within the left posterior tibial and peroneal arteries are noted. IMPRESSION: 1. Extensive atherosclerotic plaque within the left lower extremity. 2. Occlusion of the suspected left superficial femoral artery stent. Markedly dampened, monophasic fl ow within the left calf vessels, as described above. 3. Elevated velocity within a collateral vessel arising from the left superficial femoral artery whic h may reflect a stenosis. ACT 112: Negative or not required by law. Electronically signed by: Romario Saenz M.D. 12/26/2022 12:22 PM
--- NOTE | 2022-12-26 14:21 | History & Physical Report ---
Date of Service December 26, 2022 Assessment & Plan (1) Ischemia of left lower extremity: Plan: ?precipitated by recent COVID-19 infection last month +/- atrial fibrillation Hold warfarin. Continue plavix as discussed with Dr Perla LOCK doppler checks q4h NPO after midnight Consult vascular surgery (2) Acute pain of left lower extremity: Plan: Secondary to ischemia as above (3) HTN (hypertension): Plan: Continue routine medications - give clonidine and metoprolol now as past due to these (4) HLD (hyperlipidemia): Plan: Contineu rosuvastatin (5) Ulcerative colitis: Plan: Continue sulfasalazine + mercaptopurine (6) GERD (gastroesophageal reflux disease): Plan: Continue pantoprazole (7) Atrial fibrillation: Plan: Paced rhythm, Anticoagulated normally with warfarin Rate controlled with diltiazem and metoprolol Plan VTE Prophylaxis - INR therapeutic Diet - heart healthy, NPO after midnight Disposition - admit to PCU Admission and Anticipated Discharge Date Admission Date: December 26, 2022 History of Present Illness Chief Complaint: Left leg pain Primary Care Provider: NO PCP Charline Meehan is an 87 year old female who presents to the ER with calf pain and numbness. Numbness started two days ago. Better on exertion but much worse at night when she was not moving it. Associated with it feeling cold. Improved since coming to the ER. Current severity 1/, 2/10 on arrival to the ER. She has a history of peripheral artery disease and thrombus to left lower extremity with femoral stent in place, does not feel as severe as her prior blood clot. Currently taking warfarin for atrial fibrillation and clopidogrel for peripheral artery disease. Warfarin most recently has been supratherapeutic with INR 5.0 in December 07 and 2.3 on December 14. Today INR is 2.9. No trauma to her leg, fever, chills, falls, chest pain, shortness of breath. She reports having COVID-19 infection 1 month ago for which she was not hospitalized but felt very unwell for 5 days. Allergies Allergy/AdvReac Type Severity Reaction Status Date / Time Penicillins Allergy Severe THROAT Verified 10/13/22 11:18 SWELLS, PASSES OUT aspirin Allergy Intermediate WELTS Verified 10/13/22 11:18 AROUND EYES [place] And Derivatives Allergy Mild Runny/stuffy Verified 10/13/22 11:18 nose mayonnaise Allergy Unknown Verified 10/13/22 11:18 chicken derived AdvReac Intermediate DIARRHEA Verified 10/13/22 11:18 chocolate flavor AdvReac Intermediate DIARRHEA Verified 10/13/22 11:18 lactose AdvReac Intermediate GI upset Verified 10/13/22 11:18 grass pollen-perennial rye, AdvReac Mild RUNNY Verified 10/13/22 11:18 standar NOSE/SINUS ISSUES mushroom AdvReac Mild GI SYMPTOMS Verified 10/13/22 11:18 pollen extracts AdvReac Mild RUNNY Verified 10/13/22 11:18 NOSE/SINUS ISSUES soy AdvReac Mild GI SYMPTOMS Verified 10/13/22 11:18 Diystem-QLS-MfZ Reductase AdvReac Mild DID NOT Verified 10/13/22 11:18 Inhibitor WORK [Mbwwbtl-Upt-Qhz Reductase Inhibitor] lorazepam AdvReac Hallucinati Verified 10/13/22 11:18 ng Home Medications Medication Instructions Recorded Confirmed Type walker #1 ea 03/11/19 12/26/22 Rx cholecalciferol (vitamin D3) 50 2,000 unit PO DAILY@1200 07/05/20 12/26/22 History mcg (2,000 unit) capsule (Vitamin D3) multivitamin with minerals-folic 1 tab PO DAILY@1200 07/05/20 12/26/22 History acid 200 mcg chewable tablet (Adult One Daily Gummies) cyclosporine 0.05 % eye drops in a 1 drp OPB Q12H 11/23/20 12/26/22 History dropperette (Restasis) loratadine 10 mg tablet (Claritin) 10 mg PO HS PRN Allergy Symptoms 11/23/20 12/26/22 History denosumab 60 mg/mL subcutaneous 60 mg subcut .COMPLEX 02/25/21 12/26/22 History syringe (Prolia) calcium carb,cit ER 600 mg-vit D3 1 tab PO BID 04/07/21 12/26/22 History 12.5 mcg (500 unit) tablet,ext.rel (Citracal-D3 Slow Release) vitamins A,C,S-hkqg-nnmjzi 2,148 1 tab PO BID 04/07/21 12/26/22 History mcg-113 mg-45 mg-17.4 mg tablet (PreserVision AREDS) doxycycline hyclate 100 mg capsule 100 mg PO ONCE PRN dental work #10 05/04/21 12/26/22 Rx caps acetaminophen 325 mg tablet 650 mg PO Q4H PRN pain 07/19/21 12/26/22 History mercaptopurine 50 mg tablet See Rx Instructions .Route 01/04/22 12/26/22 Rx .COMPLEX #135 tabs furosemide 20 mg tablet (Lasix) 20 mg PO DAILY #90 tabs 03/29/22 12/26/22 Rx famotidine 20 mg tablet 20 mg PO HS #90 tabs 04/05/22 12/26/22 Rx metoprolol succinate 100 mg 200 mg PO DAILY@1200 #180 tabs 04/05/22 12/26/22 Rx tablet,extended release 24 hr clonidine HCl 0.1 mg tablet 0.1 mg PO TID #270 tabs 04/26/22 12/26/22 Rx warfarin 3 mg tablet See Rx Instructions PO UD #140 tabs 07/18/22 12/26/22 Rx clopidogrel 75 mg tablet (Plavix) 75 mg PO DAILY #90 tabs 08/23/22 12/26/22 Rx rosuvastatin 5 mg tablet 5 mg PO DAILY #90 tabs 08/23/22 12/26/22 Rx diltiazem HCl 360 mg 360 mg PO DAILY #90 caps 10/02/22 12/26/22 Rx capsule,extended release 24 hr (Cardizem CD) pantoprazole 40 mg tablet,delayed 40 mg PO BIDM 12/26/22 12/26/22 History release pantoprazole 40 mg tablet,delayed 40 mg PO BIDM 12/26/22 12/26/22 History release potassium chloride 10 mEq 10 meq PO QDB 12/26/22 12/26/22 History capsule,extended release sulfasalazine 500 mg tablet 1,000 mg PO BIDM 12/26/22 12/26/22 History trazodone 50 mg tablet 25 mg PO HS 12/26/22 12/26/22 History Past Med/Surg History Medical History Acute pancreatitis Aortic stenosis Breast cancer (08/27/15) Breast cancer CHF (congestive heart failure) Compression fracture of lumbar vertebra Facial basal cell cancer Gastric outlet obstruction GERD (gastroesophageal reflux disease) HLD (hyperlipidemia) HTN (hypertension) Hypertensive urgency Incarcerated paraesophageal hernia Left sided abdominal pain Lower extremity pain, left On anticoagulant therapy Osteoarthritis Pacemaker Paraesophageal hiatal hernia SSS (sick sinus syndrome) (02/18/14) Stroke Ulcerative colitis Ulcerative colitis Unintentional weight loss Vomiting Surgical History H/O total hysterectomy History of appendectomy History of cataract surgery History of colonoscopy History of esophagogastroduodenoscopy (EGD) History of herniorrhaphy History of kyphoplasty History of tonsillectomy and adenoidectomy History of tooth extraction Hx of lumpectomy Family History Brother Coronary heart disease Mother Coronary heart disease Benign essential HTN Myocardial infarction Stroke Other PVD (peripheral vascular disease) Denies family history of Ovarian cancer Prostate cancer Breast cancer Lung cancer Colorectal cancer Social History Smoking Status: Never smoker Second Hand Exposure: No; Do You Dip or Chew Tobacco: No; Hx Alcohol Use: No Hx Substance Use: No Preferred Language: Citizen Of [place] Communication Ability: Effective Visual Impairment: Limited Hearing Ability: Normal 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 Beliefs That Will Affect Care: None marital status: Single Current Living Situation: Other Current Living Situation Comment: [facility] - independent living current occupational status: retired How many Children do You have: 1 Other Information That Helps Us Care for You: No Feels Safe at Home: Yes Safety Concerns: Feels Safe At This Time Childhood Exposure to Second-Hand Smoke: No caffeine: Yes (drinks soda ) Dental Care, Regularly: Yes Physical Activity Frequency: Daily Physical Activity Frequency Comment: walks daily Seatbelt Use: always Sunscreen Use: No Assistive Devices: Cane, Denture - Upper, Denture - Lower, Glasses and Walker Review of Systems Review of Systems: All systems reviewed & are unremarkable except as noted in HPI & below Physical Exam Constitutional: WD/WN, vitals as above Eyes: PERRL, conjunctivae normal, anicteric sclerae Respiratory: normal respiratory effort, lungs clear to auscultation Cardiovascular: RRR, no murmur, no edema Vessels: dorsalis pedis pulses present (weak on left side); + posterior tibial pulses abnormal (absent on left side) Gastrointestinal (Abdomen): normal bowel sounds, soft, nontender, no hepatosplenomegaly Musculoskeletal: no cyanosis or clubbing, extremities motor strength 5/5 Skin: no rashes, warm and dry Neurologic: moves all extremities and awake; not confused Motor/Sensory: no sensory deficit (sensation reportedly better than previously) Psychiatric: A+Ox3, euthymic affect Results & Data Results & Data Vital Signs (Past 12 Hours) Vital Signs Temp Pulse Pulse Resp BP BP Pulse Ox 12/26/22 12:06 83 20 184/98 H 96 12/26/22 09:06 18 12/26/22 08:57 36.6 C 70 18 166/77 H 98 O2 Del Method 12/26/22 12:06 Room Air 12/26/22 09:06 12/26/22 08:57 Room Air Laboratory Results Abnormal lab results 12/26/22 12/26/22 12/26/22 Range/Units 09:15 09:15 09:15 WBC 4.72 L (4.8-10.8) K/ul RBC 3.43 L (4.20-5.40) M/uL Hgb 11.8 L (12.0-16.0) g/dl Hct 36.0 L (37.0-47.0) % MCV 105.0 H (80.0-100.0) fL MCH 34.4 H (25.0-34.0) pg RDW Std Deviation 66.9 H (36.4-46.3) fL RDW Coeff of Terrance 17.3 H (11.5-14.5) % Lymph # (Auto) 0.93 L (1.2-3.4) K/uL [place] # (Auto) 0.84 H (0.11-0.59) K/uL PT 29.8 H (9.0-12.0) Seconds INR 2.9 H (0.9-1.1) APTT 38.3 H (21.0-31.0) Seconds BUN/Creatinine Ratio 22.4 H (10-20) Glucose 123 H (70-99(Fasting)) mg/dl Diagnostic Findings LEFT LOWER EXTREMITY ARTERIAL DOPPLER ULTRASOUND CLINICAL HISTORY: Left leg pain. COMPARISON STUDY: Left lower extremity arterial Doppler ultrasound November 23, 2020. TECHNIQUE: Grayscale, color and duplex Doppler sonography of the arterial system of the left lower extremity was performed. FINDINGS: There is extensive plaque within the left lower extremity. Triphasic flow is noted within the left common femoral artery. There is monophasic flow within the proximal left superficial femoral artery. There is a suspected stent within the left superficial femoral artery which appears occluded. No flow is identified within this portion of the vessel. A collateral arises from the proximal SFA. There is an elevated peak systolic velocity of 307 cm/s within the proximal aspect of the suspected collateral vessel. Within the distal left superficial femoral artery, there is dampened, monophasic flow. There is also monophasic flow within the left popliteal, anterior tibial and dorsalis pedis vessels. Markedly dampened monophasic waveforms within the left posterior tibial and peroneal arteries are noted. IMPRESSION: 1. Extensive atherosclerotic plaque within the left lower extremity. 2. Occlusion of the suspected left superficial femoral artery stent. Markedly dampened, monophasic flow within the left calf vessels, as described above. 3. Elevated velocity within a collateral vessel arising from the left superficial femoral artery which may reflect a stenosis. ULTRASOUND LEFT LOWER EXTREMITY VENOUS CLINICAL HISTORY: Left leg pain. COMPARISON STUDY: Left lower extremity venous ultrasound dated 11/23/2020. TECHNIQUE: Real-time, grayscale, and color Doppler sonography of the deep veins of the left lower extremity was performed from the inguinal crease to the calf. Compression and augmentation were utilized. FINDINGS: There is no sonographic evidence of deep venous thrombosis identified in the left lower extremity. The common femoral, superficial femoral, and popliteal veins are patent and normally compressible. The greater saphenous vein and the profunda femoris vein at the junction with the common femoral vein are clear. The visualized calf veins are patent. IMPRESSION: There is no sonographic evidence of deep venous thrombosis identified in the left lower extremity. Medications Administered ER Medications Given: None ECG Rate (beats per minute): 70 Rhythm: atrial fibrillation (paced) Findings: + LBBB; no acute ischemic change Comparison ECG Date: from (Feb 27, 2022) Change: no significant change Code Status & VTE Plan Code Status DNR/DNI per patient wishes VTE Prophylaxis Plan VTE Prophylaxis will be ordered: No PG Care Time/CCT Total # of Minutes Spent Total Time Spent with Patient: Total time spent is greater than 50% in coordination of care (as documented) at patient's floor/unit and/or counseling patient: Coding Level of Care Code 25454 INT INP/OBS CARE 2/55MIN Diagnoses Ischemia of left lower extremity I99.8 Acute pain of left lower extremity M79.605 HTN (hypertension) I10 Hypertension type: essential hypertension HLD (hyperlipidemia) E78.5 Ulcerative colitis K51.90 GERD (gastroesophageal reflux disease) K21.9 Atrial fibrillation I48.91 (3) HTN (hypertension) Hypertension type: essential hypertension Qualified Code(s): I10 - Essential (primary) hypertension
[2022-12-26] MEDS ORDERED: cloNIDine HCL 0.1 MG TAB PO STA (14:49)
[2022-12-26] MEDS ORDERED: METOPROLOL SUCC 50MG EXT REL TAB PO STA (16:22)
[2022-12-26] MEDS ORDERED: ARTIFICIAL TEARS OP PRN (19:13)
[2022-12-26] MEDS: MERCAPTOPURINE 50 MG TAB PO SCH ×2 (19:48)
[2022-12-26] MEDS: PANTOprazole 40 MG TAB PO SCH (19:50)
[2022-12-26] MEDS: sulfaSALAzine 500 MG TABLET PO SCH (19:51)
[2022-12-26] MEDS: cloNIDine HCL 0.1 MG TAB PO SCH (19:52)
[2022-12-26] MEDS: traZODone HCL 50 MG TAB PO SCH (19:53)
[2022-12-26] MEDS: FAMOTIDINE 20 MG TAB PO SCH (19:53)
[2022-12-27] MEDS: ACETAMINOPHEN 325 MG TAB PO PRN (01:41)
[2022-12-27 05:18] LABS: Appearance Urine Clear (Clear); Bilirubin Urine Negative (Negative); Blood Urine Negative (Negative); Color Urine Yellow; Glucose Urine UA Negative (Negative); Ketones Urine Negative (Negative); Leukocyte Esterase Urine Negative (Negative); Nitrite Urine Negative (Negative); Protein Urine Negative (Negative); Specific Gravity Urine 1.014 (1.000-1.030); Urobilinogen Urine Negative (Negative); pH Urine 8.5 (4.5-7.5)
[2022-12-27] MEDS ORDERED: 300mg Preop IV SCH (06:00)
[2022-12-27] MEDS ORDERED: 600mg Preop IV SCH (06:00)
[2022-12-27 07:23] LABS: Basophils # (auto) 0.11 K/uL (0-0.2); Basophils % (auto) 1.4 %; Eosinophils # (auto) 0.08 K/uL (0-0.50); Hematocrit (blood only) 36.8 % (37.0-47.0); Hemoglobin 12.6 g/dl (12.0-16.0); Immature Granulocytes # (auto) 0.02 K/uL (0.01-0.20); Immature Granulocytes % (auto) 0.3 %; Lymphocytes # (auto) 1.16 K/uL (1.2-3.4); Lymphocytes % (auto) 14.7 %; Mean Corpuscular Hemoglobin 34.3 pg (25.0-34.0); Mean Corpuscular Hgb Conc 34.2 g/dL (32.0-36.0); Mean Corpuscular Volume 100.3 fL (80.0-100.0); Mean Platelet Volume 11.2 fL (9.4-12.4); Monocytes # (auto) 1.29 K/uL (0.11-0.59); Monocytes % (auto) 16.4 %; Neutrophils # (auto) 5.21 K/uL (1.40-6.50); Neutrophils % (auto) 66.2 %; Platelet Count 254 K/uL (130-400); RDW Coefficient of Variation 16.9 % (11.5-14.5); RDW Standard Deviation 61.9 fL (36.4-46.3); Red Blood Count 3.67 M/uL (4.20-5.40); White Blood Count 7.87 K/ul (4.8-10.8)
[2022-12-27 07:38] LABS: BUN Creatinine Ratio 16.4 (10-20); Calcium 9.9 mg/dl (8.6-10.3); Creatinine Clr Calc Pharmacy 44.3 ml/min; Est GFR (African American) 85.2 ml/min; Est GFR (Non-African American) 73.5 ml/min; Potassium 4.9 mmol/L (3.5-5.1)
[2022-12-27 07:47] LABS: Prothrombin Time 21.3 Seconds (9.0-12.0)
[2022-12-27] MEDS: LACTATED RINGER'S 1,000 ML IV SCH ×2 (07:51→20:05)
[2022-12-27] MEDS: cloNIDine HCL 0.1 MG TAB PO SCH ×3 (07:54→20:01)
[2022-12-27] MEDS: dilTIAZem HCL 120 MG CAPCR PO SCH (07:56)
[2022-12-27] MEDS: PANTOprazole 40 MG TAB PO SCH ×2 (07:58→16:58)
[2022-12-27] MEDS: FUROSEMIDE 20 MG TAB PO SCH ×3 (07:58→11:14)
[2022-12-27] MEDS: MERCAPTOPURINE 50 MG TAB PO SCH ×2 (08:02)
[2022-12-27] MEDS ORDERED: hydrALAZINE HCL 20 MG/ML VIAL ONE ×2 (09:21→14:56)
--- NOTE | 2022-12-27 09:45 | Consultation ---
Date of Consultation December 27, 2022 Assessment & Plan (1) Ischemia of left lower extremity: At this point recommend arteriography and possible intervention of the left lower extremity. We will need to get her blood pressure better controlled prior to the procedure. If the blood pressure does come down we will be able to do the arteriogram later today. I have discussed the risks options and benefits of the procedure with the patient. The patient understands the risks options and benefits and agrees to the procedure. Thank you very much for letting us participate in the care of this patient. History of Present Illness Reason for Consultation: Pain and numbness of left foot Attending Physician: Donna Bustillo MD History of Present Illness This is an 87-year-old female who developed calf pain and foot pain as well as numbness in her left foot which started 2 days prior to admission. The pain was in the calf and associated with ambulation. She claims that at this time the numbness is gone and there is no further pain in the foot. She has had a history of peripheral vascular disease with stenting in the past of the left superficial femoral artery. She denies any ulcerations of the legs. She was ambulating prior to this with little difficulty. Allergies Allergy/AdvReac Type Severity Reaction Status Date / Time Penicillins Allergy Severe THROAT Verified 10/13/22 11:18 SWELLS, PASSES OUT aspirin Allergy Intermediate WELTS Verified 10/13/22 11:18 AROUND EYES [place] And Derivatives Allergy Mild Runny/stuffy Verified 10/13/22 11:18 nose mayonnaise Allergy Unknown Verified 10/13/22 11:18 chicken derived AdvReac Intermediate DIARRHEA Verified 10/13/22 11:18 chocolate flavor AdvReac Intermediate DIARRHEA Verified 10/13/22 11:18 lactose AdvReac Intermediate GI upset Verified 10/13/22 11:18 grass pollen-perennial rye, AdvReac Mild RUNNY Verified 10/13/22 11:18 standar NOSE/SINUS ISSUES mushroom AdvReac Mild GI SYMPTOMS Verified 10/13/22 11:18 pollen extracts AdvReac Mild RUNNY Verified 10/13/22 11:18 NOSE/SINUS ISSUES soy AdvReac Mild GI SYMPTOMS Verified 10/13/22 11:18 Uwdeobw-GBQ-SmJ Reductase AdvReac Mild DID NOT Verified 10/13/22 11:18 Inhibitor WORK [Aatzyxb-Tns-Bey Reductase Inhibitor] lorazepam AdvReac Hallucinati Verified 10/13/22 11:18 ng Home Medications Medication Instructions Recorded Confirmed Type walker #1 ea 03/11/19 12/26/22 Rx cholecalciferol (vitamin D3) 50 2,000 unit PO DAILY@1200 07/05/20 12/26/22 History mcg (2,000 unit) capsule (Vitamin D3) multivitamin with minerals-folic 1 tab PO DAILY@1200 07/05/20 12/26/22 History acid 200 mcg chewable tablet (Adult One Daily Gummies) cyclosporine 0.05 % eye drops in a 1 drp OPB Q12H 11/23/20 12/26/22 History dropperette (Restasis) loratadine 10 mg tablet (Claritin) 10 mg PO HS PRN Allergy Symptoms 11/23/20 12/26/22 History denosumab 60 mg/mL subcutaneous 60 mg subcut .COMPLEX 02/25/21 12/26/22 History syringe (Prolia) calcium carb,cit ER 600 mg-vit D3 1 tab PO BID 04/07/21 12/26/22 History 12.5 mcg (500 unit) tablet,ext.rel (Citracal-D3 Slow Release) vitamins A,C,M-rzky-ibnulk 2,148 1 tab PO BID 04/07/21 12/26/22 History mcg-113 mg-45 mg-17.4 mg tablet (PreserVision AREDS) doxycycline hyclate 100 mg capsule 100 mg PO ONCE PRN dental work #10 05/04/21 12/26/22 Rx caps acetaminophen 325 mg tablet 650 mg PO Q4H PRN pain 07/19/21 12/26/22 History mercaptopurine 50 mg tablet See Rx Instructions .Route 01/04/22 12/26/22 Rx .COMPLEX #135 tabs furosemide 20 mg tablet (Lasix) 20 mg PO DAILY #90 tabs 03/29/22 12/26/22 Rx famotidine 20 mg tablet 20 mg PO HS #90 tabs 04/05/22 12/26/22 Rx metoprolol succinate 100 mg 200 mg PO DAILY@1200 #180 tabs 04/05/22 12/26/22 Rx tablet,extended release 24 hr clonidine HCl 0.1 mg tablet 0.1 mg PO TID #270 tabs 04/26/22 12/26/22 Rx warfarin 3 mg tablet See Rx Instructions PO UD #140 tabs 07/18/22 12/26/22 Rx clopidogrel 75 mg tablet (Plavix) 75 mg PO DAILY #90 tabs 08/23/22 12/26/22 Rx rosuvastatin 5 mg tablet 5 mg PO DAILY #90 tabs 08/23/22 12/26/22 Rx diltiazem HCl 360 mg 360 mg PO DAILY #90 caps 10/02/22 12/26/22 Rx capsule,extended release 24 hr (Cardizem CD) pantoprazole 40 mg tablet,delayed 40 mg PO BIDM 12/26/22 12/26/22 History release pantoprazole 40 mg tablet,delayed 40 mg PO BIDM 12/26/22 12/26/22 History release potassium chloride 10 mEq 10 meq PO QDB 12/26/22 12/26/22 History capsule,extended release sulfasalazine 500 mg tablet 1,000 mg PO BIDM 12/26/22 12/26/22 History trazodone 50 mg tablet 25 mg PO HS 12/26/22 12/26/22 History Patient History Medical History Acute pancreatitis Aortic stenosis Atrial fibrillation on warfarin/plavix Breast cancer (08/27/15) "Abnormal right breast mammogram 08/01/2015 Status post biopsy 08/27/2015 10:00 lesion invasive ductal carcinoma, grade 1 Estrogen receptor positive, progesterone receptor negative, HER-2/quique negative 11:00 lesion invasive lobular carcinoma, grade 1 Estrogen receptor positive, progesterone receptor positive, HER-2/quique negative Status post lumpectomy and sentinel lymph node biopsy 09/27/2015 Lobular and ductal carcinoma Stage pT1b pN1a M0 Radiation therapy stopped 01/26/2016 received 3780 cGy. Treatments stopped early due to admission for compression fracture and inability to tolerate being in the treatment position" On 02/21/16 15:06 Frances Hogan wrote "Abnormal right breast mammogram 08/01/2015 Status post biopsy 08/27/2015 10:00 lesion invasive ductal carcinoma, grade 1 Estrogen receptor positive, progesterone receptor negative, HER-2/quique negative 11:00 lesion invasive lobular carcinoma, grade 1 Estrogen receptor positive, progesterone receptor positive, HER-2/quique negative Status post lumpectomy and sentinel lymph node biopsy 09/27/2015 Lobular and ductal carcinoma Stage pT1b pN1a M0" On 02/21/16 15:06 Frances Hogan wrote "Abnormal right breast mammogram 08/01/2015 Status post biopsy 08/27/2015 10:00 lesion invasive ductal carcinoma, grade 1 Estrogen receptor positive, progesterone receptor negative, HER-2/quique negative 11:00 lesion invasive lobular carcinoma, grade 1 Estrogen receptor positive, progesterone receptor positive, HER-2/quique negative Status post lumpectomy and sentinel lymph node biopsy 09/27/2015 Lobular and ductal carcinoma Stage pT1b pN1a M0 Status post radiation therapy, treatment stopped 01/26/2016 received 3780 cGy " On 10/14/15 13:28 Frances Hogan wrote "Abnormal right breast mammogram 08/01/2015 Status post biopsy 08/27/2015 10:00 lesion invasive ductal carcinoma, grade 1 Estrogen receptor positive, progesterone receptor negative, HER-2/quique negative 11:00 lesion invasive lobular carcinoma, grade 1 Estrogen receptor positive, progesterone receptor positive, HER-2/quique negative Status post lumpectomy and sentinel lymph node biopsy 09/27/2015 Lobular and ductal carcinoma Stage pT1b pN1a M0 " Breast cancer RT BREAST (SX AND RADIATION) CHF (congestive heart failure) Compression fracture of lumbar vertebra CVA (cerebrovascular accident) Duodenal obstruction Elevated INR Facial basal cell cancer NOSE Gastric outlet obstruction Gastric ulcer GERD (gastroesophageal reflux disease) HLD (hyperlipidemia) HTN (hypertension) Hypertensive urgency Incarcerated paraesophageal hernia Intermittent small bowel obstruction Left sided abdominal pain Lower extremity pain, left On anticoagulant therapy warfarin/plavix daily Osteoarthritis 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" (FOLLOWED BY [facility]) Pancreatitis Paraesophageal hiatal hernia Sarcoidosis DX 1967 (LYMPH NODES AND LUNGS) Small bowel obstruction SSS (sick sinus syndrome) (02/18/14) Stroke OVER 20 YEARS AGO (NO CURRENT PROBLEMS) Ulcerative colitis Ulcerative colitis "REMISSION" Unintentional weight loss per pt reason for colonoscopy Vomiting Surgical History H/O total hysterectomy History of appendectomy History of cataract surgery History of colonoscopy History of esophagogastroduodenoscopy (EGD) History of herniorrhaphy History of kyphoplasty History of tonsillectomy and adenoidectomy History of tooth extraction Hx of lumpectomy Family History Brother Coronary heart disease Mother Coronary heart disease Benign essential HTN Myocardial infarction Stroke Other PVD (peripheral vascular disease) Denies family history of Ovarian cancer Prostate cancer Breast cancer Lung cancer Colorectal cancer Social History Smoking Status: Never smoker Second Hand Exposure: No; Do You Dip or Chew Tobacco: No; Hx Alcohol Use: No Hx Substance Use: No Preferred Language: [place] Communication Ability: Effective Visual Impairment: Limited Hearing Ability: Normal Manager Route Required: No Beliefs That Will Affect Care: None marital status: Single Current Living Situation: Other Current Living Situation Comment: [place] - independent living current occupational status: retired How many Children do You have: 1 Other Information That Helps Us Care for You: No Feels Safe at Home: Yes Safety Concerns: Feels Safe At This Time Childhood Exposure to Second-Hand Smoke: No caffeine: Yes (drinks soda ) Dental Care, Regularly: Yes Physical Activity Frequency: Daily Physical Activity Frequency Comment: walks daily Seatbelt Use: always Sunscreen Use: No Assistive Devices: Cane, Denture - Upper, Denture - Lower, Glasses and Walker Review of Systems Review of Systems: All systems reviewed & are unremarkable except as noted in HPI & below Physical Exam Constitutional: WD/WN, vitals as above Respiratory: normal respiratory effort, lungs clear to auscultation Cardiovascular: Rate/Rhythm: regular rate and regular rhythm Vessels: femoral pulses present, posterior tibial pulses present (Right to Doppler) and radial pulses present; + dorsalis pedis pulses abnormal Extremities: + abnormal capillary refill (Slightly decreased on the left but present) Gastrointestinal (Abdomen): Inspection/Auscultation: abdomen normal to inspection; abdomen not distended Percussion/Palpation: abdomen soft; abdomen nontender Neurologic: CN's II-XI intact bilaterally, normal sensation to monofilament and moves all extremities Psychiatric: Orientation: alert and oriented x 3 Results & Data Vital Signs (Past 12 Hours) Vital Signs Temp Pulse Resp BP Pulse Ox O2 Del Method 12/27/22 02:57 36.9 C 63 16 189/92 H 93 Room Air 12/27/22 00:00 36.8 C 62 16 182/78 H 93 Room Air
[2022-12-27] MEDS ORDERED: hydrALAZINE HCL 20 MG/ML VIAL IV STA (11:06)
[2022-12-27] MEDS: CLOPIDOGREL BISULFATE 75 MG TAB PO SCH (11:14)
[2022-12-27] MEDS: sulfaSALAzine 500 MG TABLET PO SCH ×2 (11:16→16:58)
[2022-12-27] MEDS: ROSUVASTATIN CALCIUM 5 MG TAB PO SCH (11:55)
[2022-12-27] MEDS ORDERED: CLINDAMYCIN/D5W 900 MG/50 ML BAG IV STA (12:43)
[2022-12-27] MEDS ORDERED: HEPARIN SOD (PORCINE) 1000 UNIT/ML ONE ×2 (12:45→13:29)
[2022-12-27] MEDS ORDERED: MIDAZOLAM HCL 1 MG/ML 2ML VIAL ONE ×2 (12:45→14:11)
[2022-12-27] MEDS ORDERED: LIDOCAINE 1% LOCAL 20 ML VIAL ONE (12:45)
[2022-12-27] MEDS ORDERED: fentaNYL citrate PF 100 MCG/2 ML VIAL ONE ×2 (12:45→14:35)
[2022-12-27] MEDS: METOPROLOL SUCC 50MG EXT REL TAB PO SCH (13:19)
[2022-12-27] MEDS ORDERED: ALTEPLASE, RECOMBINANT 20 MG in 0.9 % SODIUM CHLORIDE 80 ML INTRVAS ONE (14:00)
[2022-12-27] MEDS ORDERED: HEPARIN 25000 UNIT/500 ML D5W IV ONE (14:34)
--- NOTE | 2022-12-27 15:11 | Procedure Note ---
Angiogram Post Procedure Fluoroscopy Time (minutes): 12.5 Conscious Sedation Time (minutes): 102 Radiation (mGy): 88 Contrast: 75 Post Operative Report Pre & Post Diagnosis Operation Date: 12/27/22 11:10 Pre-Op Diagnosis: LEFT SUPERFICIAL FEMORAL ARTERY STENT OCCLUSION Post-Op Diagnosis: LEFT SUPERFICIAL FEMORAL ARTERY STENT OCCLUSION I identified the patient and participated in the time-out.: Yes Procedure Operation Date: 12/27/22 11:10 Actual Procedures p Left Lower Extremity Arteriogram, Mechanical Thrombectomy Left Superficial Femoral Artery, Percutaneous Transluminal Angioplasty and Stenting of Left Superficial Femoral Artery, Ultrasound Localization of Right Femoral Artery, Insetion of Infusion Catheter, Intra Arterial Thrombolysis infusion, Moderate Sedation 1310- 1452(Right) - Bubba Duncan MD Surgeon Bubba Duncan MD Livestock Feeder none Estimated Blood Loss 20 Findings Consistent with Post-Op Diagnosis Specimens none Anesthesia Type RN Sedation Complications none Disposition Accompanied Patient To Recovery: No Disposition: Recovery Room Indications This is an 87-year-old female who had stents of her left superficial femoral artery placed in the past. She came in complaining of numbness and pain in her left lower extremity for 2 days. She claims that the pain is better and the numbness has improved however she was found to have thrombosis of her left superficial femoral artery stents. Her foot was viable but appeared dusky. There are no Doppler signals heard in the left foot. Arteriography with possible intervention was recommended for limb salvage. I have discussed the risks options and benefits of the procedure with the patient. The patient understands the risks options and benefits and agrees to the procedure. Description of Procedure The patient was taken the angiogram suite and placed supine position. After the groins were prepped draped in sterile manner a timeout was performed and the patient was identified. Local anesthetic was administered to the right groin. Using ultrasound the right common femoral artery visualized. It was patent. Under ultrasound guidance the right common femoral artery was punctured and a 5 Bah[place]ian sheath inserted. An 035 Glidewire and rim catheter were inserted. The rim catheter was advanced to the common iliac artery on the left side. Could not be advanced any further. We switched out wires from a soft glide to a stiffened Glidewire and advanced the rim catheter down to the distal external iliac artery. Left lower extremity arteriography was performed which showed the common femoral artery patent. There is occlusion of the superficial femoral artery just before the stent with reconstitution at the distal end. The popliteal artery appeared patent with filling defects noted. This was also seen in the proximal anterior tibial artery. The anterior tibial artery beyond the interosseous membrane was patent down to the foot. That point we exchanged the 5 Bahamian sheath to a 7 Bahamian destination. We then inserted a proximal the A ngioJet catheter. This was inserted to the distal end of the stent. Post spray thrombolytic was performed. This was allowed to sit in place for approximately 10 minutes. We used 20 mg and 100 cc of saline. After 10 minutes we then did a mechanical thrombectomy. The stent was found to be patent after this with multiple irregular areas in the stent and the popliteal artery. Due to the remaining areas we restented the areas that were narrowed which started just at the adductor hiatus and went proximally. We used a 6 x 15 followed by 6 x 10 Viabahn. We then we ballooned these with a 6 x 120 balloon. The stented area. To look much better with very little residual narrowing. However the popliteal artery still had irregularities seen with poor flow. Thought at that time this may be more clot and that level. We then inserted a infusion catheter with a 30 cm perfusion area. This was placed in the distal popliteal just before the takeoff of the anterior tibial artery. We then began tPA infusion through the catheter and heparin infusion through the sheath. Sterile dressings were applied to the catheters. Patient will be brought back tomorrow for reevaluation and possible intervention.The patient left the operation room in satisfactory condition and tolerated the procedure well. All needle and sponge counts were correct at the end of the procedure. I attest to the content of the Intraoperative Record and any orders documented therein. Any exceptions are noted below.
--- NOTE | 2022-12-27 15:20 | Hospitalist Progress Note ---
Date of Service December 27, 2022 Assessment & Plan (1) Ischemia of left lower extremity: Plan: shee is now status post left lower extremity arthrogram mechanical thrombectomy of the left superficial femoral artery with angioplasty and stent insertion. Rest of management per vascular Continue Plavix. Appreciate vascular surgery (2) Acute pain of left lower extremity: Plan: Management as above (3) HTN (hypertension): Plan: Poorly controlled, received some as needed IV hydralazine Continue routine medications - give clonidine and metoprolol Continue to monitor BP (4) HLD (hyperlipidemia): Plan: Contineu rosuvastatin (5) Ulcerative colitis: Plan: Continue sulfasalazine + mercaptopurine (6) GERD (gastroesophageal reflux disease): Plan: Continue pantoprazole (7) Atrial fibrillation: Plan: Paced rhythm, Anticoagulated normally with warfarin, warfarin currently on hold for the OR Rate controlled with diltiazem and metoprolol Plan VTE Prophylaxis - INR therapeutic Diet - heart healthy, NPO after midnight Disposition -admit to ICU after the OR Admission and Anticipated Discharge Date Admission Date: December 26, 2022 Subjective Patient seen and examined, still complained of left lower extremity pain, scheduled for OR Review of Systems Review of Systems: All systems reviewed are negative, apart from the ones contained in the history. Physical Exam Physical Exam: The patient is awake, alert and oriented 3, well developed and well nourished, normocephalic and atraumatic, lying in bed and in no acute distress. HEENT--PERRL, EOMI, mucous membranes and oropharynx mildly dry Neck--supple. No JVD. No bruits. Thyroid normal, trachea midline, no adenopathy. Heart--normal S1 and S2. No murmurs, rubs or gallops. Lungs--clear bilaterally, no respiratory distress, no accessory muscle use. Abdomen--normal bowel sounds and soft. Mild epigastric and left sided abdominal pain Extremities--no cyanosis or clubbing. No edema. Dermatologic--normal skin turgor, normal color, no abnormal lymph nodes, no rash. Neurologic--cranial nerves II through XII grossly intact. Rheumatologic--normal range of motion. Psychiatric--normal affect. Results & Data Results & Data Vital Signs (Past 12 Hours) Vital Signs Temp Pulse Pulse Resp BP BP BP 12/27/22 14:52 84 18 178/90 H 12/27/22 14:47 84 18 154/89 H 12/27/22 14:45 84 18 158/90 H 12/27/22 12:40 84 18 186/78 H 12/27/22 14:35 84 18 190/98 H 12/27/22 14:30 84 18 188/85 H 12/27/22 14:25 84 18 180/80 H 12/27/22 14:20 84 18 175/78 H 12/27/22 14:15 84 18 177/80 H 12/27/22 14:10 84 18 170/95 H 12/27/22 14:05 84 18 161/64 H 12/27/22 14:00 84 18 160/64 H 12/27/22 13:55 84 18 140/71 12/27/22 13:50 84 18 138/58 L 12/27/22 13:45 84 18 135/56 L 12/27/22 13:40 84 18 132/62 12/27/22 13:35 84 18 128/64 12/27/22 13:25 84 18 146/57 H 12/27/22 13:30 84 18 138/58 L 12/27/22 13:20 84 18 143/67 H 12/27/22 13:10 84 18 165/88 H 12/27/22 13:05 84 18 170/90 H 12/27/22 13:15 84 18 168/90 H 12/27/22 13:00 84 18 170/77 H 12/27/22 11:49 98.1 F 96 H 20 177/76 H 12/27/22 11:00 104 H 28 H 12/27/22 10:51 180/92 H 12/27/22 10:51 88 24 12/27/22 10:30 98 H 31 H 12/27/22 10:00 93 H 22 12/27/22 09:45 83 26 H 12/27/22 09:45 179/98 H 12/27/22 09:30 78 21 12/27/22 09:20 201/92 H 12/27/22 09:20 70 25 H 12/27/22 09:00 75 19 12/27/22 08:30 68 17 12/27/22 08:00 75 22 12/27/22 07:55 190/113 H 12/27/22 07:55 87 22 08/02/23 07:30 70 20 12/27/22 07:15 91 H 16 12/27/22 07:30 98.1 F 88 18 190/113 H Pulse Ox O2 Del Method O2 Flow Rate 12/27/22 14:52 98 Oxymask 4 12/27/22 14:47 98 Oxymask 4 12/27/22 14:45 98 Oxymask 4 12/27/22 12:40 98 Oxymask 4 12/27/22 14:35 98 Oxymask 4 12/27/22 14:30 98 Oxymask 4 12/27/22 14:25 98 Oxymask 4 12/27/22 14:20 98 Oxymask 4 12/27/22 14:15 98 Oxymask 4 12/27/22 14:10 98 Oxymask 4 12/27/22 14:05 98 Oxymask 4 12/27/22 14:00 98 Oxymask 4 12/27/22 13:55 98 Oxymask 4 12/27/22 13:50 98 Oxymask 4 12/27/22 13:45 98 Oxymask 4 12/27/22 13:40 98 Oxymask 4 12/27/22 13:35 98 Oxymask 4 12/27/22 13:25 98 Oxymask 4 12/27/22 13:30 98 Oxymask 4 12/27/22 13:20 98 Oxymask 4 12/27/22 13:10 98 Oxymask 4 12/27/22 13:05 98 Oxymask 4 12/27/22 13:15 98 Oxymask 4 12/27/22 13:00 98 Oxymask 4 12/27/22 11:49 95 Room Air 12/27/22 11:00 12/27/22 10:51 12/27/22 10:51 12/27/22 10:30 12/27/22 10:00 12/27/22 09:45 12/27/22 09:45 12/27/22 09:30 12/27/22 09:20 12/27/22 09:20 12/27/22 09:00 12/27/22 08:30 12/27/22 08:00 12/27/22 07:55 12/27/22 07:55 95 12/27/22 07:30 12/27/22 07:15 12/27/22 07:30 94 Room Air PG Care Time/CCT Total # of Minutes Spent Total Time Spent with Patient: Total time spent is greater than 50% in coordination of care (as documented) at patient's floor/unit and/or counseling patient: Coding Level of Care Code 78028 SUB INP/OBS CARE 2/35MIN Diagnoses Ischemia of left lower extremity I99.8 Acute pain of left lower extremity M79.605 HTN (hypertension) I10 Hypertension type: essential hypertension HLD (hyperlipidemia) E78.5 Ulcerative colitis K51.90 GERD (gastroesophageal reflux disease) K21.9 Atrial fibrillation I48.91 Time Spent (min) 35 (3) HTN (hypertension) Hypertension type: essential hypertension Qualified Code(s): I10 - Essential (primary) hypertension
[2022-12-27] MEDS ORDERED: HEPARIN SODIUM/DEXTROSE 25,000 UNIT/500 ML BAG IV SCH (15:27)
[2022-12-27] MEDS ORDERED: MoRPHine SULFATE 4 MG/ML 1 ML CARP\\VIAL IV PRN (15:27)
[2022-12-27] MEDS ORDERED: ALTEPLASE IV SCH (16:00)
[2022-12-27] MEDS ORDERED: SODIUM CHLORIDE 0.9% IV SCH (16:00)
[2022-12-27] MEDS ORDERED: RECOMBINANT IV SCH (16:00)
--- NOTE | 2022-12-27 16:06 | Critical Care Consultation ---
Date of Consultation December 27, 2022 Assessment & Plan (1) Acute pain of left lower extremity: (2) Ischemia of left lower extremity: (3) Aortic stenosis: (4) Atrial fibrillation: Plan NEURO 1. Left critical limb ischemia s/p mechanical thrombectomy and re-stenting of the left superficial femoral artery and intra arterial thrombolysis infusion -- Neurovascular checks -- Strict bedrest, insert johnson, tpa infusing from left leg -- Pain control with morphine prn, continue plavix CV 1. Hx of Afib 2. HTN -- Continue cardizem, metoprolol, clonidine Hydralazine prn, statin RESP -- On room air ID -- Empiric cleocin per vasuclar surgery HEME -- Montor H&H daily ENDO -- Blood glucose goal 140-180 History of Present Illness Reason for Consultation: post op care Requesting Physician: Dr. Bustillo Attending Physician: Donna Bustillo MD History of Present Illness 87 F with hx of PAD and left leg vascular stent in the superficial femoral artery, admitted on 12/26/2022 for left foot pain and numbness for 2 days. Patient underwent arteriography today demonstrating critical limb ischemia and underwent mechanical thrombectomy and re-stenting of the left superficial femoral artery and intra arterial thrombolysis infusion under moderate sedation. She arrived in ICU in stable condition, a/o x 3 on room air. Left leg is warm to the touch, no palpable DP or PM pulses on left leg. She is moderately hypertensive currently receiving hydralazine. Allergies Allergy/AdvReac Type Severity Reaction Status Date / Time Penicillins Allergy Severe THROAT Verified 10/13/22 11:18 SWELLS, PASSES OUT aspirin Allergy Intermediate WELTS Verified 10/13/22 11:18 AROUND EYES [place] And Derivatives Allergy Mild Runny/stuffy Verified 10/13/22 11:18 nose mayonnaise Allergy Unknown Verified 10/13/22 11:18 chicken derived AdvReac Intermediate DIARRHEA Verified 10/13/22 11:18 chocolate flavor AdvReac Intermediate DIARRHEA Verified 10/13/22 11:18 lactose AdvReac Intermediate GI upset Verified 10/13/22 11:18 grass pollen-perennial rye, AdvReac Mild RUNNY Verified 10/13/22 11:18 standar NOSE/SINUS ISSUES mushroom AdvReac Mild GI SYMPTOMS Verified 10/13/22 11:18 pollen extracts AdvReac Mild RUNNY Verified 10/13/22 11:18 NOSE/SINUS ISSUES soy AdvReac Mild GI SYMPTOMS Verified 10/13/22 11:18 Pcplwwu-KPL-YwD Reductase AdvReac Mild DID NOT Verified 10/13/22 11:18 Inhibitor WORK [Idilykl-Src-Fnu Reductase Inhibitor] lorazepam AdvReac Hallucinati Verified 10/13/22 11:18 ng Home Medications Medication Instructions Recorded Confirmed Type walker #1 ea 03/11/19 12/26/22 Rx cholecalciferol (vitamin D3) 50 2,000 unit PO DAILY@1200 07/05/20 12/26/22 History mcg (2,000 unit) capsule (Vitamin D3) multivitamin with minerals-folic 1 tab PO DAILY@1200 07/05/20 12/26/22 History acid 200 mcg chewable tablet (Adult One Daily Gummies) cyclosporine 0.05 % eye drops in a 1 drp OPB Q12H 11/23/20 12/26/22 History dropperette (Restasis) loratadine 10 mg tablet (Claritin) 10 mg PO HS PRN Allergy Symptoms 11/23/20 12/26/22 History denosumab 60 mg/mL subcutaneous 60 mg subcut .COMPLEX 02/25/21 12/26/22 History syringe (Prolia) calcium carb,cit ER 600 mg-vit D3 1 tab PO BID 04/07/21 12/26/22 History 12.5 mcg (500 unit) tablet,ext.rel (Citracal-D3 Slow Release) vitamins A,C,U-bihx-ioctkk 2,148 1 tab PO BID 04/07/21 12/26/22 History mcg-113 mg-45 mg-17.4 mg tablet (PreserVision AREDS) doxycycline hyclate 100 mg capsule 100 mg PO ONCE PRN dental work #10 05/04/21 12/26/22 Rx caps acetaminophen 325 mg tablet 650 mg PO Q4H PRN pain 07/19/21 12/26/22 History mercaptopurine 50 mg tablet See Rx Instructions .Route 01/04/22 12/26/22 Rx .COMPLEX #135 tabs furosemide 20 mg tablet (Lasix) 20 mg PO DAILY #90 tabs 03/29/22 12/26/22 Rx famotidine 20 mg tablet 20 mg PO HS #90 tabs 04/05/22 12/26/22 Rx metoprolol succinate 100 mg 200 mg PO DAILY@1200 #180 tabs 04/05/22 12/26/22 Rx tablet,extended release 24 hr clonidine HCl 0.1 mg tablet 0.1 mg PO TID #270 tabs 04/26/22 12/26/22 Rx warfarin 3 mg tablet See Rx Instructions PO UD #140 tabs 07/18/22 12/26/22 Rx clopidogrel 75 mg tablet (Plavix) 75 mg PO DAILY #90 tabs 08/23/22 12/26/22 Rx rosuvastatin 5 mg tablet 5 mg PO DAILY #90 tabs 08/23/22 12/26/22 Rx diltiazem HCl 360 mg 360 mg PO DAILY #90 caps 10/02/22 12/26/22 Rx capsule,extended release 24 hr (Cardizem CD) pantoprazole 40 mg tablet,delayed 40 mg PO BIDM 12/26/22 12/26/22 History release pantoprazole 40 mg tablet,delayed 40 mg PO BIDM 12/26/22 12/26/22 History release potassium chloride 10 mEq 10 meq PO QDB 12/26/22 12/26/22 History capsule,extended release sulfasalazine 500 mg tablet 1,000 mg PO BIDM 12/26/22 12/26/22 History trazodone 50 mg tablet 25 mg PO HS 12/26/22 12/26/22 History Patient History Medical History Acute pancreatitis Aortic stenosis Atrial fibrillation on warfarin/plavix Breast cancer (08/27/15) "Abnormal right breast mammogram 08/01/2015 Status post biopsy 08/27/2015 10:00 lesion invasive ductal carcinoma, grade 1 Estrogen receptor positive, progesterone receptor negative, HER-2/quique negative 11:00 lesion invasive lobular carcinoma, grade 1 Estrogen receptor positive, progesterone receptor positive, HER-2/quique negative Status post lumpectomy and sentinel lymph node biopsy 09/27/2015 Lobular and ductal carcinoma Stage pT1b pN1a M0 Radiation therapy stopped 01/26/2016 received 3780 cGy. Treatments stopped early due to admission for compression fracture and inability to tolerate being in the treatment position" On 02/21/16 15:06 Frances Hogan wrote "Abnormal right breast mammogram 08/01/2015 Status post biopsy 08/27/2015 10:00 lesion invasive ductal carcinoma, grade 1 Estrogen receptor positive, progesterone receptor negative, HER-2/quiuqe negative 11:00 lesion invasive lobular carcinoma, grade 1 Estrogen receptor positive, progesterone receptor positive, HER-2/quique negative Status post lumpectomy and sentinel lymph node biopsy 09/27/2015 Lobular and ductal carcinoma Stage pT1b pN1a M0" On 02/21/16 15:06 Frances Hogan wrote "Abnormal right breast mammogram 08/01/2015 Status post biopsy 08/27/2015 10:00 lesion invasive ductal carcinoma, grade 1 Estrogen receptor positive, progesterone receptor negative, HER-2/quique negative 11:00 lesion invasive lobular carcinoma, grade 1 Estrogen receptor positive, progesterone receptor positive, HER-2/quique negative Status post lumpectomy and sentinel lymph node biopsy 09/27/2015 Lobular and ductal carcinoma Stage pT1b pN1a M0 Status post radiation therapy, treatment stopped 01/26/2016 received 3780 cGy " On 10/14/15 13:28 Frances Hogan wrote "Abnormal right breast mammogram 08/01/2015 Status post biopsy 08/27/2015 10:00 lesion invasive ductal carcinoma, grade 1 Estrogen receptor positive, progesterone receptor negative, HER-2/quique negative 11:00 lesion invasive lobular carcinoma, grade 1 Estrogen receptor positive, progesterone receptor positive, HER-2/quique negative Status post lumpectomy and sentinel lymph node biopsy 09/27/2015 Lobular and ductal carcinoma Stage pT1b pN1a M0 " Breast cancer RT BREAST (SX AND RADIATION) CHF (congestive heart failure) Compression fracture of lumbar vertebra CVA (cerebrovascular accident) Duodenal obstruction Elevated INR Facial basal cell cancer NOSE Gastric outlet obstruction Gastric ulcer GERD (gastroesophageal reflux disease) HLD (hyperlipidemia) HTN (hypertension) Hypertensive urgency Incarcerated paraesophageal hernia Intermittent small bowel obstruction Left sided abdominal pain Lower extremity pain, left On anticoagulant therapy warfarin/plavix daily Osteoarthritis 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" (FOLLOWED BY [facility]) Pancreatitis Paraesophageal hiatal hernia Sarcoidosis DX 1967 (LYMPH NODES AND LUNGS) Small bowel obstruction SSS (sick sinus syndrome) (02/18/14) Stroke OVER 20 YEARS AGO (NO CURRENT PROBLEMS) Ulcerative colitis Ulcerative colitis "REMISSION" Unintentional weight loss per pt reason for colonoscopy Vomiting Surgical History H/O total hysterectomy History of appendectomy History of cataract surgery History of colonoscopy History of esophagogastroduodenoscopy (EGD) History of herniorrhaphy History of kyphoplasty History of tonsillectomy and adenoidectomy History of tooth extraction Hx of lumpectomy Family History Brother Coronary heart disease Mother Coronary heart disease Benign essential HTN Myocardial infarction Stroke Other PVD (peripheral vascular disease) Denies family history of Ovarian cancer Prostate cancer Breast cancer Lung cancer Colorectal cancer Social History Smoking Status: Never smoker Second Hand Exposure: No; Do You Dip or Chew Tobacco: No; Hx Alcohol Use: No Hx Substance Use: No Preferred Language: Yoruba Communication Ability: Effective Visual Impairment: Limited Hearing Ability: Normal Environmental Journalist Required: No Beliefs That Will Affect Care: None marital status: Single Current Living Situation: Other [facility] status: retired How many Children do You have: 1 Other Information That Helps Us Care for You: No Feels Safe at Home: Yes Safety Concerns: Feels Safe At This Time Childhood Exposure to Second-Hand Smoke: No caffeine: Yes (drinks soda ) Dental Care, Regularly: Yes Physical Activity Frequency: Daily Physical Activity Frequency Comment: walks daily Seatbelt Use: always Sunscreen Use: No Assistive Devices: Cane, Walker and Other Review of Systems Review of Systems: Denies chest pain, dyspnea, lightheadedness, visual changes Admits to left leg discomfort Physical Exam Physical Exam: Gen: A/O x 3, NAD on room air CV: RRR Resp: CTAB Ext: Left leg warm, non-palpable DP, PM pulses / right leg well perfused with +2 DP/PM pulses Results & Data Results & Data Vital Signs (Past 12 Hours) Vital Signs Temp Pulse Pulse Resp BP BP BP 12/27/22 14:52 84 18 178/90 H 12/27/22 14:47 84 18 154/89 H 12/27/22 14:45 84 18 158/90 H 12/27/22 12:40 84 18 186/78 H 12/27/22 14:35 84 18 190/98 H 12/27/22 14:30 84 18 188/85 H 12/27/22 14:25 84 18 180/80 H 12/27/22 14:20 84 18 175/78 H 12/27/22 14:15 84 18 177/80 H 12/27/22 14:10 84 18 170/95 H 12/27/22 14:05 84 18 161/64 H 12/27/22 14:00 84 18 160/64 H 12/27/22 13:55 84 18 140/71 12/27/22 13:50 84 18 138/58 L 12/27/22 13:45 84 18 135/56 L 12/27/22 13:40 84 18 132/62 12/27/22 13:35 84 18 128/64 12/27/22 13:25 84 18 146/57 H 12/27/22 13:30 84 18 138/58 L 12/27/22 13:20 84 18 143/67 H 12/27/22 13:10 84 18 165/88 H 12/27/22 13:05 84 18 170/90 H 12/27/22 13:15 84 18 168/90 H 12/27/22 13:00 84 18 170/77 H 12/27/22 11:49 36.7 C 96 H 20 177/76 H 12/27/22 11:00 104 H 28 H 12/27/22 10:51 180/92 H 12/27/22 10:51 88 24 12/27/22 10:30 98 H 31 H 12/27/22 10:00 93 H 22 12/27/22 09:45 83 26 H 12/27/22 09:45 179/98 H 12/27/22 09:30 78 21 12/27/22 09:20 201/92 H 12/27/22 09:20 70 25 H 12/27/22 09:00 75 19 12/27/22 08:30 68 17 12/27/22 08:00 75 22 12/27/22 07:55 190/113 H 12/27/22 07:55 87 22 12/27/22 07:30 70 20 12/27/22 07:15 91 H 16 12/27/22 07:30 36.7 C 88 18 190/113 H Pulse Ox O2 Del Method O2 Flow Rate 12/27/22 14:52 98 Oxymask 4 12/27/22 14:47 98 Oxymask 4 12/27/22 14:45 98 Oxymask 4 12/27/22 12:40 98 Oxymask 4 12/27/22 14:35 98 Oxymask 4 12/27/22 14:30 98 Oxymask 4 12/27/22 14:25 98 Oxymask 4 12/27/22 14:20 98 Oxymask 4 12/27/22 14:15 98 Oxymask 4 12/27/22 14:10 98 Oxymask 4 12/27/22 14:05 98 Oxymask 4 12/27/22 14:00 98 Oxymask 4 12/27/22 13:55 98 Oxymask 4 12/27/22 13:50 98 Oxymask 4 12/27/22 13:45 98 Oxymask 4 12/27/22 13:40 98 Oxymask 4 12/27/22 13:35 98 Oxymask 4 12/27/22 13:25 98 Oxymask 4 12/27/22 13:30 98 Oxymask 4 12/27/22 13:20 98 Oxymask 4 12/27/22 13:10 98 Oxymask 4 12/27/22 13:05 98 Oxymask 4 12/27/22 13:15 98 Oxymask 4 12/27/22 13:00 98 Oxymask 4 12/27/22 11:49 95 Room Air 12/27/22 11:00 12/27/22 10:51 12/27/22 10:51 12/27/22 10:30 12/27/22 10:00 12/27/22 09:45 12/27/22 09:45 12/27/22 09:30 12/27/22 09:20 12/27/22 09:20 12/27/22 09:00 12/27/22 08:30 12/27/22 08:00 12/27/22 07:55 12/27/22 07:55 95 12/27/22 07:30 12/27/22 07:15 12/27/22 07:30 94 Room Air Coding Level of Care Code 92649 CRITICAL CARE 1ST 30-74M Diagnoses Acute pain of left lower extremity M79.605 Ischemia of left lower extremity I99.8 Aortic stenosis I35.0 Atrial fibrillation I48.91
[2022-12-27 16:27] LABS: Basophils # (auto) 0.05 K/uL (0-0.2); Basophils % (auto) 0.5 %; Eosinophils # (auto) 0.01 K/uL (0-0.50); Eosinophils % (auto) 0.1 %; Hemoglobin 12.6 g/dl (12.0-16.0); Immature Granulocytes # (auto) 0.05 K/uL (0.01-0.20); Immature Granulocytes % (auto) 0.5 %; Lymphocytes # (auto) 0.84 K/uL (1.2-3.4); Lymphocytes % (auto) 8.2 %; Mean Corpuscular Hemoglobin 34.1 pg (25.0-34.0); Mean Corpuscular Hgb Conc 33.2 g/dL (32.0-36.0); Mean Platelet Volume 11.1 fL (9.4-12.4); Monocytes # (auto) 1.55 K/uL (0.11-0.59); Monocytes % (auto) 15.1 %; Neutrophils # (auto) 7.76 K/uL (1.40-6.50); Neutrophils % (auto) 75.6 %; Nucleated RBC # (auto) 0.04 K/uL (0-0.12); Nucleated RBC % (auto) 0.4 %; Platelet Count 243 K/uL (130-400); RDW Standard Deviation 64.1 fL (36.4-46.3); Red Blood Count 3.69 M/uL (4.20-5.40); White Blood Count 10.26 K/ul (4.8-10.8)
[2022-12-27 16:48] LABS: Hematocrit (blood only) 31.1 % (37.0-47.0); Hemoglobin 10.3 g/dl (12.0-16.0)
[2022-12-27 17:22] LABS: Fibrinogen 367 mg/dl (184-400); Partial Thromboplastin Ratio 1.1; Partial Thromboplastin Time 32.4 Seconds (21.0-31.0)
[2022-12-27] MEDS ORDERED: MERCAPTOPURINE 50 MG TAB PO SCH (19:30)
[2022-12-27] MEDS: traZODone HCL 50 MG TAB PO SCH (20:01)
[2022-12-27] MEDS: FAMOTIDINE 20 MG TAB PO SCH (20:01)
[2022-12-27 22:25] LABS: Basophils # (auto) 0.03 K/uL (0-0.2); Basophils % (auto) 0.3 %; Hematocrit (blood only) 36.6 % (37.0-47.0); Hemoglobin 12.2 g/dl (12.0-16.0); Immature Granulocytes # (auto) 0.07 K/uL (0.01-0.20); Immature Granulocytes % (auto) 0.6 %; Lymphocytes # (auto) 0.55 K/uL (1.2-3.4); Mean Corpuscular Hemoglobin 34.7 pg (25.0-34.0); Mean Corpuscular Hgb Conc 33.3 g/dL (32.0-36.0); Mean Platelet Volume 11.3 fL (9.4-12.4); Monocytes % (auto) 15.5 %; Neutrophils # (auto) 8.63 K/uL (1.40-6.50); Neutrophils % (auto) 78.6 %; Nucleated RBC # (auto) 0.07 K/uL (0-0.12); Nucleated RBC % (auto) 0.6 %; Platelet Count 276 K/uL (130-400); RDW Coefficient of Variation 17.4 % (11.5-14.5); RDW Standard Deviation 66.3 fL (36.4-46.3); Red Blood Count 3.52 M/uL (4.20-5.40); White Blood Count 10.98 K/ul (4.8-10.8)
[2022-12-27 22:54] LABS: Fibrinogen 458 mg/dl (184-400); Partial Thromboplastin Ratio 1.2; Partial Thromboplastin Time 33.4 Seconds (21.0-31.0)
[2022-12-28] MEDS ORDERED: SODIUM CHLORIDE 0.9% IV SCH (04:00)
[2022-12-28] MEDS ORDERED: ALTEPLASE IV SCH (04:00)
[2022-12-28] MEDS ORDERED: RECOMBINANT IV SCH (04:00)
[2022-12-28 04:25] LABS: Basophils # (auto) 0.04 K/uL (0-0.2); Basophils % (auto) 0.3 %; Eosinophils # (auto) 0.01 K/uL (0-0.50); Eosinophils % (auto) 0.1 %; Hematocrit (blood only) 32.3 % (37.0-47.0); Hemoglobin 10.8 g/dl (12.0-16.0); Immature Granulocytes # (auto) 0.04 K/uL (0.01-0.20); Immature Granulocytes % (auto) 0.3 %; Lymphocytes # (auto) 1.08 K/uL (1.2-3.4); Lymphocytes % (auto) 9.2 %; Mean Corpuscular Hemoglobin 34.3 pg (25.0-34.0); Mean Corpuscular Hgb Conc 33.4 g/dL (32.0-36.0); Mean Corpuscular Volume 102.5 fL (80.0-100.0); Mean Platelet Volume 11.4 fL (9.4-12.4); Monocytes # (auto) 2.33 K/uL (0.11-0.59); Monocytes % (auto) 19.8 %; Neutrophils # (auto) 8.29 K/uL (1.40-6.50); Neutrophils % (auto) 70.3 %; Nucleated RBC # (auto) 0.05 K/uL (0-0.12); Nucleated RBC % (auto) 0.4 %; Platelet Count 275 K/uL (130-400); RDW Coefficient of Variation 17.2 % (11.5-14.5); Red Blood Count 3.15 M/uL (4.20-5.40); White Blood Count 11.79 K/ul (4.8-10.8)
[2022-12-28 04:54] LABS: Fibrinogen 444 mg/dl (184-400); Partial Thromboplastin Ratio 1.2; Partial Thromboplastin Time 34.4 Seconds (21.0-31.0)
[2022-12-28] MEDS ORDERED: 300mg Preop IV SCH (06:00)
[2022-12-28] MEDS ORDERED: 600mg Preop IV SCH (06:00)
--- NOTE | 2022-12-28 06:33 | Electrocardiogram Report ---
Test Reason : Blood Pressure : / mmHG Vent. Rate : 070 BPM Atrial Rate : 000 BPM P-R Int : 000 ms QRS Dur : 148 ms QT Int : 438 ms P-R-T Axes : 000 -56 122 degrees QTc Int : 473 ms Atrial fibrillation with frequent ventricular-paced complexes Left axis deviation Left bundle branch block Abnormal ECG When compared with ECG of 27-FEB-2022 11:19, Vent. rate has decreased BY 4 BPM Confirmed by Dany Whittington ([id number]) on 12/28/2022 6:33:08 AM Referred By: REFERRED SELF Confirmed By:Dany Whittington
[2022-12-28] MEDS ORDERED: VISIPAQUE IV PRN (07:37)
[2022-12-28] MEDS ORDERED: LIDOCAINE 1% LOCAL 20 ML VIAL INJ ONE (07:37)
[2022-12-28] MEDS ORDERED: MERCAPTOPURINE 50 MG TAB PO SCH (09:00)
[2022-12-28] MEDS: ROSUVASTATIN CALCIUM 5 MG TAB PO SCH (09:17)
[2022-12-28] MEDS: cloNIDine HCL 0.1 MG TAB PO SCH ×3 (09:17→19:26)
[2022-12-28] MEDS: CLOPIDOGREL BISULFATE 75 MG TAB PO SCH (09:17)
[2022-12-28] MEDS: PANTOprazole 40 MG TAB PO SCH ×2 (09:17→17:18)
[2022-12-28] MEDS: dilTIAZem HCL 120 MG CAPCR PO SCH (09:18)
[2022-12-28] MEDS: MERCAPTOPURINE 50 MG TAB PO SCH (09:22)
[2022-12-28 09:58] LABS: Basophils # (auto) 0.04 K/uL (0-0.2); Basophils % (auto) 0.3 %; Eosinophils # (auto) 0.02 K/uL (0-0.50); Eosinophils % (auto) 0.2 %; Hematocrit (blood only) 33.1 % (37.0-47.0); Hemoglobin 11.3 g/dl (12.0-16.0); Immature Granulocytes # (auto) 0.06 K/uL (0.01-0.20); Immature Granulocytes % (auto) 0.5 %; Lymphocytes # (auto) 1.34 K/uL (1.2-3.4); Lymphocytes % (auto) 11.3 %; Mean Corpuscular Hemoglobin 34.3 pg (25.0-34.0); Mean Corpuscular Hgb Conc 34.1 g/dL (32.0-36.0); Mean Corpuscular Volume 100.6 fL (80.0-100.0); Monocytes # (auto) 2.69 K/uL (0.11-0.59); Monocytes % (auto) 22.7 %; Neutrophils # (auto) 7.71 K/uL (1.40-6.50); Nucleated RBC # (auto) 0.04 K/uL (0-0.12); Nucleated RBC % (auto) 0.3 %; Platelet Count 268 K/uL (130-400); RDW Coefficient of Variation 17.3 % (11.5-14.5); RDW Standard Deviation 62.4 fL (36.4-46.3); Red Blood Count 3.29 M/uL (4.20-5.40); White Blood Count 11.86 K/ul (4.8-10.8)
[2022-12-28] MEDS ORDERED: FUROSEMIDE 20 MG TAB PO ONE (10:00)
[2022-12-28 10:23] LABS: Fibrinogen 473 mg/dl (184-400); Partial Thromboplastin Ratio 1.3; Partial Thromboplastin Time 36.3 Seconds (21.0-31.0)
[2022-12-28] MEDS: METOPROLOL SUCC 50MG EXT REL TAB PO SCH (12:53)
[2022-12-28] MEDS: sulfaSALAzine 500 MG TABLET PO SCH ×2 (12:53→17:18)
[2022-12-28] MEDS ORDERED: CLINDAMYCIN/D5W 600 MG/50 ML BAG IV ONE (13:00)
--- NOTE | 2022-12-28 13:00 | Critical Care Progress Note ---
Date of Service December 28, 2022 Assessment & Plan (1) Acute pain of left lower extremity: (2) Ischemia of left lower extremity: (3) Aortic stenosis: (4) Atrial fibrillation: Plan NEURO 1. Left critical limb ischemia s/p mechanical thrombectomy and re-stenting of the left superficial femoral artery and intra arterial thrombolysis infusion -- Neurovascular checks -- Continue plavix CV 1. Hx of Afib 2. HTN -- Continue cardizem, metoprolol, clonidine Hydralazine prn, statin RESP -- On room air ID -- Empiric cleocin per vasuclar surgery HEME -- [facility]or H&H ENDO -- Blood glucose goal 140-180 Admission and Anticipated Discharge Date Admission Date: December 26, 2022 Subjective 12/28/2022. Patient pulled out her left femoral sheath with intravascular TPA. Hb down about 2 g/dL this am. A/O x 3, NAD Review of Systems Review of Systems: Denies chest pain, dyspnea, lightheadedness, visual changes Admits to left leg discomfort Physical Exam Physical Exam: Gen: A/O x 3, NAD on room air CV: RRR Resp: CTAB Ext: Left leg warm, non-palpable DP, PM pulses / right leg well perfused with +2 DP/PM pulses Results & Data Results & Data Vital Signs (Past 12 Hours) Vital Signs Temp Pulse Resp BP Pulse Ox O2 Del Method 12/28/22 11:26 97 H 21 168/85 H 12/28/22 11:00 112 H 13 12/28/22 08:07 92 H 19 166/77 H 97 Room Air 12/28/22 11:20 87 12/28/22 08:00 36.7 C 12/28/22 06:10 77 23 12/28/22 06:00 87 21 12/28/22 05:50 80 25 H 12/28/22 05:40 91 H 20 12/28/22 05:30 89 14 12/28/22 05:20 82 23 12/28/22 05:10 75 18 12/28/22 05:00 75 23 12/28/22 04:50 86 21 12/28/22 04:40 81 27 H 12/28/22 04:30 76 26 H 12/28/22 04:20 85 27 H 99 12/28/22 04:18 80 29 H 100 12/28/22 04:18 182/65 H 12/28/22 04:15 204/141 H 12/28/22 04:15 80 19 100 12/28/22 04:10 85 22 12/28/22 04:00 91 H 22 12/28/22 03:50 90 37 H 12/28/22 04:00 36.6 C 12/28/22 04:00 37.0 C 12/28/22 03:40 93 H 20 12/28/22 03:30 95 H 22 12/28/22 03:20 80 21 12/28/22 03:10 88 21 12/28/22 03:00 96 H 26 H 12/28/22 02:50 95 H 25 H 12/28/22 02:40 90 21 12/28/22 02:30 94 H 10 L 12/28/22 02:20 84 16 12/28/22 02:10 104 H 24 12/28/22 02:00 81 18 12/28/22 01:50 79 26 H 12/28/22 01:40 86 20 12/28/22 01:30 79 24 12/28/22 01:20 96 H 22 12/28/22 01:10 88 21 12/28/22 01:00 108 H 22 Coding Level of Care Code 01851 SUB INP/OBS CARE 2/35MIN Diagnoses Acute pain of left lower extremity M79.605 Ischemia of left lower extremity I99.8 Aortic stenosis I35.0 Atrial fibrillation I48.91
--- NOTE | 2022-12-28 13:36 | Hospitalist Progress Note ---
Date of Service December 28, 2022 Assessment & Plan (1) Ischemia of left lower extremity: Plan: Admitted to the hospital on account of left lower extremity pain, found to have ischemia of the left lower extremity she is now status post left lower extremity arthrogram mechanical thrombectomy of the left superficial femoral artery with angioplasty and stent insertion. Rest of management per vascular Continue Plavix and empiric clindamycin Appreciate vascular surgery (2) Acute pain of left lower extremity: Plan: Management as above (3) HTN (hypertension): Plan: Poorly controlled, received some as needed IV hydralazine Continue routine medications - give clonidine and metoprolol Continue to monitor BP (4) HLD (hyperlipidemia): Plan: Contineu rosuvastatin (5) Ulcerative colitis: Plan: Continue sulfasalazine + mercaptopurine (6) GERD (gastroesophageal reflux disease): Plan: Continue pantoprazole (7) Atrial fibrillation: Plan: Paced rhythm, Anticoagulated normally with warfarin, warfarin currently on hold for the OR Rate controlled with diltiazem and metoprolol Plan VTE Prophylaxis - INR therapeutic Diet - heart healthy, Disposition -continue hospitalization, plan is SNF when accepted Admission and Anticipated Discharge Date Admission Date: December 26, 2022 Subjective Patient seen and examined, she is now status post thrombectomy, states her left leg feels better Review of Systems Review of Systems: All systems reviewed are negative, apart from the ones contained in the history. Physical Exam Physical Exam: The patient is awake, alert and oriented 3, well developed and well nourished, normocephalic and atraumatic, lying in bed and in no acute distress. HEENT--PERRL, EOMI, mucous membranes and oropharynx mildly dry Neck--supple. No JVD. No bruits. Thyroid normal, trachea midline, no adenopathy. Heart--normal S1 and S2. No murmurs, rubs or gallops. Lungs--clear bilaterally, no respiratory distress, no accessory muscle use. Abdomen--normal bowel sounds and soft. Mild epigastric and left sided abdominal pain Extremities--no cyanosis or clubbing. No edema. Dermatologic--normal skin turgor, normal color, no abnormal lymph nodes, no rash. Neurologic--cranial nerves II through XII grossly intact. Rheumatologic--normal range of motion. Psychiatric--normal affect. Results & Data Results & Data Vital Signs (Past 12 Hours) Vital Signs Temp Pulse Resp BP Pulse Ox O2 Del Method 12/28/22 11:26 97 H 21 168/85 H 12/28/22 11:00 112 H 13 12/28/22 08:07 92 H 19 166/77 H 97 Room Air 12/28/22 11:20 87 12/28/22 08:00 98.1 F 12/28/22 06:10 77 23 12/28/22 06:00 87 21 12/28/22 05:50 80 25 H 12/28/22 05:40 91 H 20 12/28/22 05:30 89 14 12/28/22 05:20 82 23 12/28/22 05:10 75 18 12/28/22 05:00 75 23 12/28/22 04:50 86 21 12/28/22 04:40 81 27 H 12/28/22 04:30 76 26 H 12/28/22 04:20 85 27 H 99 12/28/22 04:18 80 29 H 100 12/28/22 04:18 182/65 H 12/28/22 04:15 204/141 H 12/28/22 04:15 80 19 100 12/28/22 04:10 85 22 12/28/22 04:00 91 H 22 12/28/22 03:50 90 37 H 12/28/22 04:00 97.9 F 12/28/22 04:00 98.6 F 12/28/22 03:40 93 H 20 12/28/22 03:30 95 H 22 12/28/22 03:20 80 21 12/28/22 03:10 88 21 12/28/22 03:00 96 H 26 H 12/28/22 02:50 95 H 25 H 12/28/22 02:40 90 21 12/28/22 02:30 94 H 10 L 12/28/22 02:20 84 16 12/28/22 02:10 104 H 24 12/28/22 02:00 81 18 12/28/22 01:50 79 26 H 12/28/22 01:40 86 20 PG Care Time/CCT Total # of Minutes Spent Total Time Spent with Patient: Total time spent is greater than 50% in coordination of care (as documented) at patient's floor/unit and/or counseling patient: Coding Level of Care Code 23567 SUB INP/OBS CARE 2/35MIN Diagnoses Ischemia of left lower extremity I99.8 Acute pain of left lower extremity M79.605 HTN (hypertension) I10 Hypertension type: essential hypertension HLD (hyperlipidemia) E78.5 Ulcerative colitis K51.90 GERD (gastroesophageal reflux disease) K21.9 Atrial fibrillation I48.91 Time Spent (min) 35 (3) HTN (hypertension) Hypertension type: essential hypertension Qualified Code(s): I10 - Essential (primary) hypertension
[2022-12-28 14:31] LABS: Basophils # (auto) 0.03 K/uL (0-0.2); Basophils % (auto) 0.3 %; Eosinophils # (auto) 0.01 K/uL (0-0.50); Eosinophils % (auto) 0.1 %; Hematocrit (blood only) 33.7 % (37.0-47.0); Hemoglobin 11.4 g/dl (12.0-16.0); Immature Granulocytes # (auto) 0.03 K/uL (0.01-0.20); Immature Granulocytes % (auto) 0.3 %; Lymphocytes # (auto) 1.02 K/uL (1.2-3.4); Lymphocytes % (auto) 9.9 %; Mean Corpuscular Hemoglobin 34.1 pg (25.0-34.0); Mean Corpuscular Hgb Conc 33.8 g/dL (32.0-36.0); Mean Corpuscular Volume 100.9 fL (80.0-100.0); Mean Platelet Volume 11.4 fL (9.4-12.4); Monocytes # (auto) 2.19 K/uL (0.11-0.59); Monocytes % (auto) 21.3 %; Neutrophils # (auto) 6.99 K/uL (1.40-6.50); Neutrophils % (auto) 68.1 %; Nucleated RBC # (auto) 0.04 K/uL (0-0.12); Nucleated RBC % (auto) 0.4 %; Platelet Count 263 K/uL (130-400); RDW Coefficient of Variation 17.2 % (11.5-14.5); RDW Standard Deviation 64.1 fL (36.4-46.3); Red Blood Count 3.34 M/uL (4.20-5.40); White Blood Count 10.27 K/ul (4.8-10.8)
--- NOTE | 2022-12-28 14:44 | Surgery Progress Note ---
Date of Service December 28, 2022 Assessment & Plan (1) Superficial femoral artery occlusion: Plan: On exam today she has a Doppler in the dorsalis pedis left foot. Her capillary refill is normal in the left foot. I believe that we most likely had a good portion of the clot out of the leg during the mechanical thrombectomy and the tPA that was given during the thrombectomy itself. This patient's heart rate he refused to have any sort of bypass on the lower extremity. We will therefore observe for worsening of her circulation. Continue her Coumadin and aspirin. I would not attempt any other procedures on this extremity unless it becomes a limb salvage situation. From my standpoint she can be transferred out of the ICU. We will see her in the office in 2 to 3 weeks postdischarge. Admission and Anticipated Discharge Date Admission Date: December 26, 2022 Subjective This patient's an 87-year-old female who yesterday underwent arteriography mechanical thrombectomy and reviewed stenting of her left superficial femoral artery. We did leave a tPA infusion catheter in place however once she was back to the ICU she pulled out the entire catheter and sheaths. Today she is slightly disoriented. She denies any pain in her lower extremities. Physical Exam Constitutional: WD/WN, vitals as above Cardiovascular: Vessels: posterior tibial pulses present (Right posterior tibial to Doppler) and dorsalis pedis pulses present (Left dorsalis pedis to Doppler which sounds biphasic.) Skin: + incision (Puncture site to right groin has a small hematoma present.) Neurologic: CN's II-XI intact bilaterally and moves all extremities Psychiatric: Orientation: alert Results & Data Vital Signs (Past 12 Hours) Vital Signs Temp Pulse Resp BP Pulse Ox O2 Del Method 12/28/22 11:26 97 H 21 168/85 H 12/28/22 11:00 112 H 13 12/28/22 08:07 92 H 19 166/77 H 97 Room Air 12/28/22 11:20 87 12/28/22 08:00 36.7 C 12/28/22 06:10 77 23 12/28/22 06:00 87 21 12/28/22 05:50 80 25 H 12/28/22 05:40 91 H 20 12/28/22 05:30 89 14 12/28/22 05:20 82 23 12/28/22 05:10 75 18 12/28/22 05:00 75 23 08/03/23 04:50 86 21 12/28/22 04:40 81 27 H 12/28/22 04:30 76 26 H 12/28/22 04:20 85 27 H 99 12/28/22 04:18 80 29 H 100 12/28/22 04:18 182/65 H 12/28/22 04:15 204/141 H 12/28/22 04:15 80 19 100 12/28/22 04:10 85 22 12/28/22 04:00 91 H 22 12/28/22 03:50 90 37 H 12/28/22 04:00 36.6 C 12/28/22 04:00 37.0 C 12/28/22 03:40 93 H 20 12/28/22 03:30 95 H 22 12/28/22 03:20 80 21 12/28/22 03:10 88 21 12/28/22 03:00 96 H 26 H 12/28/22 02:50 95 H 25 H 12/28/22 02:40 90 21
[2022-12-28 14:58] LABS: Partial Thromboplastin Ratio 1.3; Partial Thromboplastin Time 37.7 Seconds (21.0-31.0)
[2022-12-28] MEDS: ACETAMINOPHEN 325 MG TAB PO PRN (18:59)
[2022-12-28] MEDS: traZODone HCL 50 MG TAB PO SCH (19:26)
[2022-12-28] MEDS: FAMOTIDINE 20 MG TAB PO SCH (19:26)
[2022-12-28] MEDS: MELATONIN 3 MG TAB PO PRN (23:19)
[2022-12-29 06:25] LABS: Hematocrit (blood only) 31.4 % (37.0-47.0); Hemoglobin 10.7 g/dl (12.0-16.0); Mean Corpuscular Hemoglobin 34.3 pg (25.0-34.0); Mean Corpuscular Hgb Conc 34.1 g/dL (32.0-36.0); Mean Corpuscular Volume 100.6 fL (80.0-100.0); Mean Platelet Volume 11.1 fL (9.4-12.4); Nucleated RBC # (auto) 0.03 K/uL (0-0.12); Nucleated RBC % (auto) 0.2 %; Platelet Count 273 K/uL (130-400); RDW Standard Deviation 62.9 fL (36.4-46.3); Red Blood Count 3.12 M/uL (4.20-5.40); White Blood Count 12.57 K/ul (4.8-10.8)
[2022-12-29 06:39] LABS: BUN Creatinine Ratio 26.5 (10-20); Calcium 8.5 mg/dl (8.6-10.3); Est GFR (African American) 90.5 ml/min; Est GFR (Non-African American) 78.1 ml/min; Potassium 3.8 mmol/L (3.5-5.1)
[2022-12-29] MEDS: ROSUVASTATIN CALCIUM 5 MG TAB PO SCH (09:58)
[2022-12-29] MEDS: dilTIAZem HCL 120 MG CAPCR PO SCH (09:58)
[2022-12-29] MEDS: cloNIDine HCL 0.1 MG TAB PO SCH ×3 (09:58→21:08)
[2022-12-29] MEDS: FUROSEMIDE 20 MG TAB PO SCH (09:58)
[2022-12-29] MEDS: sulfaSALAzine 500 MG TABLET PO SCH ×3 (09:59→12:12)
[2022-12-29] MEDS: PANTOprazole 40 MG TAB PO SCH ×2 (09:59→17:11)
[2022-12-29] MEDS: CLOPIDOGREL BISULFATE 75 MG TAB PO SCH (09:59)
[2022-12-29] MEDS: MERCAPTOPURINE 50 MG TAB PO SCH (10:00)
--- NOTE | 2022-12-29 11:22 | Hospitalist Progress Note ---
Date of Service December 29, 2022 Assessment & Plan (1) Ischemia of left lower extremity: Plan: Admitted to the hospital on account of left lower extremity pain, found to have ischemia of the left lower extremity she is now status post left lower extremity arthrogram mechanical thrombectomy of the left superficial femoral artery with angioplasty and stent review However, she pulled out her tPA infusion catheter, vascular aware of this Rest of management per vascular Continue Plavix Plan is SNF when accepted (2) Acute pain of left lower extremity: Plan: Management as above (3) HTN (hypertension): Plan: Blood pressure now under better control after adding clonidine Continue to monitor. (4) Delirium: Plan: Most likely hospital delirium on a background of mild dementia Continue reorientation (5) HLD (hyperlipidemia): Plan: Contineu rosuvastatin (6) Ulcerative colitis: Plan: Continue sulfasalazine + mercaptopurine (7) GERD (gastroesophageal reflux disease): Plan: Continue pantoprazole (8) Atrial fibrillation: Plan: Chronic atrial fibrillation Paced rhythm, Anticoagulated normally with warfarin, warfarin was held for OR Rate controlled with diltiazem and metoprolol Resume warfarin when it is okay by vascular surgery Plan VTE Prophylaxis - INR therapeutic Diet - heart healthy, Disposition -continue hospitalization, plan is SNF when accepted Admission and Anticipated Discharge Date Admission Date: December 26, 2022 Subjective This patient's an 87-year-old female who yesterday underwent arteriography mechanical thrombectomy and reviewed stenting of her left superficial femoral artery. We did leave a tPA infusion catheter in place however once she was back to the ICU she pulled out the entire catheter and sheaths. Today she is slightly disoriented. She denies any pain in her lower extremities. Review of Systems Review of Systems: All systems reviewed are negative, apart from the ones contained in the history. Physical Exam Physical Exam: The patient is awake, alert and oriented 3, well developed and well nourished, normocephalic and atraumatic, lying in bed and in no acute distress. HEENT--PERRL, EOMI, mucous membranes and oropharynx mildly dry Neck--supple. No JVD. No bruits. Thyroid normal, trachea midline, no adenopathy. Heart--normal S1 and S2. No murmurs, rubs or gallops. Lungs--clear bilaterally, no respiratory distress, no accessory muscle use. Abdomen--normal bowel sounds and soft. Mild epigastric and left sided abdominal pain Extremities--no cyanosis or clubbing. No edema. Dermatologic--normal skin turgor, normal color, no abnormal lymph nodes, no rash. Neurologic--cranial nerves II through XII grossly intact. Rheumatologic--normal range of motion. Psychiatric--normal affect. Results & Data Results & Data Vital Signs (Past 12 Hours) Vital Signs Temp Pulse Pulse Resp BP Pulse Ox O2 Del Method 12/29/22 10:42 97.9 F 108 H 19 147/76 H 96 Room Air 12/29/22 08:00 105 H 12/29/22 08:00 Room Air 12/29/22 07:02 98.1 F 111 H 18 143/72 H 95 Room Air 12/29/22 03:09 97.9 F 103 H 18 147/67 H 93 Room Air 12/28/22 23:51 106 H PG Care Time/CCT Total # of Minutes Spent Total Time Spent with Patient: Total time spent is greater than 50% in coordination of care (as documented) at patient's floor/unit and/or counseling patient: Coding Level of Care Code 16491 SUB INP/OBS CARE 2/35MIN Diagnoses Ischemia of left lower extremity I99.8 Acute pain of left lower extremity M79.605 HTN (hypertension) I10 Hypertension type: essential hypertension Delirium R41.0 HLD (hyperlipidemia) E78.5 Ulcerative colitis K51.90 GERD (gastroesophageal reflux disease) K21.9 Atrial fibrillation I48.91 Time Spent (min) 35 (3) HTN (hypertension) Hypertension type: essential hypertension Qualified Code(s): I10 - Essential (primary) hypertension
[2022-12-29] MEDS ORDERED: HALOPERIDOL LACTATE 5 MG/ML 1 ML VIAL IM STA (11:43)
[2022-12-29] MEDS: METOPROLOL SUCC 50MG EXT REL TAB PO SCH ×2 (11:59→12:13)
[2022-12-29 15:31] LABS: Prothrombin Time 20.9 Seconds (9.0-12.0)
[2022-12-29] MEDS: WARFARIN SOD 3 MG TAB PO SCH (17:10)
[2022-12-29] MEDS ORDERED: Nursing to Pharmacy Communication SCH (17:45)
[2022-12-29] MEDS: METOPROLOL TARTRATE 1 MG/ML VIAL IV PRN ×2 (17:45→19:45)
[2022-12-29] MEDS: traZODone HCL 50 MG TAB PO SCH (21:07)
[2022-12-29] MEDS: FAMOTIDINE 20 MG TAB PO SCH (21:08)
[2022-12-30] MEDS: METOPROLOL TARTRATE 1 MG/ML VIAL IV PRN (04:04)
[2022-12-30] MEDS: PANTOprazole 40 MG TAB PO SCH ×2 (08:46→17:31)
[2022-12-30 08:47] LABS: Calcium 8.7 mg/dl (8.6-10.3); Potassium 3.8 mmol/L (3.5-5.1)
[2022-12-30 08:52] LABS: BUN Creatinine Ratio 40.7 (10-20); Creatinine Clr Calc Pharmacy 60.1 ml/min; Est GFR (African American) 97.6 ml/min; Est GFR (Non-African American) 84.3 ml/min
[2022-12-30 09:10] LABS: Prothrombin Time 20.9 Seconds (9.0-12.0)
[2022-12-30 10:03] LABS: Hematocrit (blood only) 33.8 % (37.0-47.0); Hemoglobin 11.6 g/dl (12.0-16.0); Mean Corpuscular Hemoglobin 34.5 pg (25.0-34.0); Mean Corpuscular Hgb Conc 34.3 g/dL (32.0-36.0); Mean Corpuscular Volume 100.6 fL (80.0-100.0); Mean Platelet Volume 11.5 fL (9.4-12.4); Nucleated RBC # (auto) 0.03 K/uL (0-0.12); Nucleated RBC % (auto) 0.2 %; Platelet Count 308 K/uL (130-400); RDW Coefficient of Variation 16.8 % (11.5-14.5); RDW Standard Deviation 60.6 fL (36.4-46.3); Red Blood Count 3.36 M/uL (4.20-5.40); White Blood Count 12.43 K/ul (4.8-10.8)
[2022-12-30] MEDS: METOPROLOL SUCC 50MG EXT REL TAB PO SCH (10:53)
[2022-12-30] MEDS: ROSUVASTATIN CALCIUM 5 MG TAB PO SCH (10:53)
[2022-12-30] MEDS: dilTIAZem HCL 120 MG CAPCR PO SCH (10:53)
[2022-12-30] MEDS: CLOPIDOGREL BISULFATE 75 MG TAB PO SCH (10:53)
[2022-12-30] MEDS: MERCAPTOPURINE 50 MG TAB PO SCH (10:54)
[2022-12-30] MEDS: sulfaSALAzine 500 MG TABLET PO SCH (10:54)
[2022-12-30] MEDS: FUROSEMIDE 20 MG TAB PO SCH (10:54)
[2022-12-30] MEDS: cloNIDine HCL 0.1 MG TAB PO SCH ×3 (10:58→20:37)
[2022-12-30] MEDS: WARFARIN SOD 3 MG TAB PO SCH (17:31)
--- NOTE | 2022-12-30 17:31 | Hospitalist Progress Note ---
Date of Service December 30, 2022 Assessment & Plan (1) Ischemia of left lower extremity: Plan: POD #3 - s/p Left Lower Extremity Arteriogram, Mechanical Thrombectomy Left Superficial Femoral Artery, Percutaneous Transluminal Angioplasty and Stenting of Left Superficial Femoral Artery - Dr Duncan Remains on plavix + statin Pain appears controlled H/H stable Dressings intact R groin Appreciate vascular surgery assistance Legs are perfused and pulses intact (2) Acute pain of left lower extremity: Plan: 2nd #1 above - resolved (3) HTN (hypertension): Plan: Is on complex regimen of meds including clonidine TID, diltiazem 360mg daily, furosemide 20mg daily, metoprolol succinate 200mg daily BPs labile despite this intensive regimen (4) Delirium: Plan: Acute encephalopathy 2nd to recent anesthesia/surgery, ICU psychosis, pain meds, etc. She has baseline dementia Supportive care Avoid sedatives (5) HLD (hyperlipidemia): Plan: Cont rosuvastatin (6) Ulcerative colitis: Plan: Continue sulfasalazine + mercaptopurine (7) GERD (gastroesophageal reflux disease): Plan: Continue pantoprazole (8) Atrial fibrillation: Plan: Chronic atrial fibrillation Remains on diltiazem and metoprolol succinate but rates are suboptimal Both meds are maxed out If additional rate control is needed - digoxin? other? INR today therapeutic on home warfarin regimen (2) repeat INR am (9) Candidiasis of mouth and esophagus: Plan: start nystatin 5cc qid swish/spit (10) Pacemaker: Plan: placed for SSS in the past (11) Leukocytosis: Plan: etiology? u/a at admission was wnl no evidence of pneumonia repeat cbc w/ diff in am consider rechecking u/a due to indwelling johnson check operative site Plan PT, OT when able Admission and Anticipated Discharge Date Admission Date: December 26, 2022 Subjective per staff pt is eating well and drinking fair she has been very confused throughout the hospitalization during my visit she was resting comfortably in bed denied pain in any location tele shows a.fib, most rates >100 even at rest Review of Systems Review of Systems: gen - states she is tired and "doesn't feel well" cv - denies any chest pain pulm - denies any dyspnea GI - denies abd pain; per staff had large BM yesterday Physical Exam Physical Exam: gen - confused, but NAD mouth - MM slightly dry, thrush plaques buccal mucosa neck - no JVD heart - tachy, irregularly irregular, s1 s2 lungs - CTA b/l abd - mildly distended, BS+, NT vascular - prior angiography site right groin covered with dressings ext - no edema, pulses 2+ b/l feet psych - a/o x 1 Results & Data Results & Data Vital Signs (Past 12 Hours) Vital Signs Temp Pulse Pulse Resp BP Pulse Ox O2 Del Method 12/30/22 16:00 97 H 12/30/22 15:44 36.7 C 111 H 18 130/69 95 Room Air 12/30/22 15:00 37 C 12/30/22 11:13 36.5 C 90 18 138/74 93 Room Air 12/30/22 07:00 107 H 12/30/22 07:00 36.3 C L 105 H 18 131/73 95 Room Air Laboratory Results Laboratory Results - last 24 hr 12/30/22 12/30/22 12/30/22 08:16 08:16 08:16 WBC 12.43 H RBC 3.36 L Hgb 11.6 L Hct 33.8 L MCV 100.6 H MCH 34.5 H MCHC 34.3 RDW Std Deviation 60.6 H RDW Coeff of Terrance 16.8 H Plt Count 308 MPV 11.5 Absolute Nucleated RBC 0.03 Nucleated RBC % (auto) 0.2 PT 20.9 H INR 2.0 H Sodium 137 Potassium 3.8 Chloride 101 Carbon Dioxide 27 Anion Gap 9 BUN 22 Creatinine 0.54 L Est Cr Clr Drug Dosing 60.1 Est GFR ( Amer) 97.6 Est GFR (Non-Af Amer) 84.3 BUN/Creatinine Ratio 40.7 H Glucose 113 H Calcium 8.7 PG Care Time/CCT Total # of Minutes Spent Total Time Spent with Patient: Total time spent is greater than 50% in coordination of care (as documented) at patient's floor/unit and/or counseling patient: Coding Level of Care Code 95460 SUB INP/OBS CARE 2/35MIN Diagnoses Ischemia of left lower extremity I99.8 Acute pain of left lower extremity M79.605 HTN (hypertension) I10 Hypertension type: essential hypertension Delirium R41.0 HLD (hyperlipidemia) E78.5 Ulcerative colitis K51.90 GERD (gastroesophageal reflux disease) K21.9 Atrial fibrillation I48.91 Candidiasis of mouth and esophagus B37.81; B37.0 Pacemaker Z95.0 Leukocytosis D72.829 (3) HTN (hypertension) Hypertension type: essential hypertension Qualified Code(s): I10 - Essential (primary) hypertension
[2022-12-30] MEDS: NYSTATIN SUSP 500,000 U/5 ML UDC PO SCH ×2 (18:06→20:37)
[2022-12-30] MEDS: FAMOTIDINE 20 MG TAB PO SCH (20:37)
[2022-12-30] MEDS: traZODone HCL 50 MG TAB PO SCH (20:37)
[2022-12-31 06:01] LABS: Basophils # (auto) 0.03 K/uL (0-0.2); Basophils % (auto) 0.2 %; Hematocrit (blood only) 33.9 % (37.0-47.0); Hemoglobin 11.4 g/dl (12.0-16.0); Immature Granulocytes # (auto) 0.11 K/uL (0.01-0.20); Immature Granulocytes % (auto) 0.6 %; Lymphocytes # (auto) 0.51 K/uL (1.2-3.4); Mean Corpuscular Hemoglobin 34.4 pg (25.0-34.0); Mean Corpuscular Hgb Conc 33.6 g/dL (32.0-36.0); Mean Corpuscular Volume 102.4 fL (80.0-100.0); Mean Platelet Volume 10.7 fL (9.4-12.4); Monocytes % (auto) 14.1 %; Neutrophils # (auto) 13.92 K/uL (1.40-6.50); Neutrophils % (auto) 82.1 %; Nucleated RBC # (auto) 0.03 K/uL (0-0.12); Nucleated RBC % (auto) 0.2 %; Platelet Count 397 K/uL (130-400); RDW Coefficient of Variation 16.9 % (11.5-14.5); RDW Standard Deviation 62.9 fL (36.4-46.3); Red Blood Count 3.31 M/uL (4.20-5.40); White Blood Count 16.97 K/ul (4.8-10.8)
[2022-12-31 06:16] LABS: BUN Creatinine Ratio 43.6 (10-20); Creatinine Clr Calc Pharmacy 59.1 ml/min; Est GFR (African American) 97.1 ml/min; Est GFR (Non-African American) 83.7 ml/min; Potassium 3.9 mmol/L (3.5-5.1)
[2022-12-31 06:43] LABS: Folate (Folic Acid),Ser orPlas 10.98 ng/ml (>5.38)
[2022-12-31 07:10] LABS: Prothrombin Time 20.9 Seconds (9.0-12.0)
--- NOTE | 2022-12-31 08:48 | XRay Report ---
XR chest 1V portable HISTORY: 87 years-old Female fever, eval for pneumonia acute shortness of breath COMPARISON: 02/27/2022 TECHNIQUE: AP view of the chest FINDINGS: Cardiomegaly. Aortic valvular prosthesis Cardiac valvular atherosclerosis of the aorta. No pneumothor ax or overt pulmonary edema. Unchanged trace left pleural effusion. No lobar space consolidations. De generative changes of the shoulders and spine. IMPRESSION: 1. No air space consolidation typical for pneumonia. 2. Cardiomegaly without pulmonary edema. 3. Unchanged trace left pleural effusion. ACT 112: Negative or not required by law. The above report was generated using voice recognition software. It may contain grammatical, syntax o r spelling errors. Electronically signed by: Pedro Garcia M.D. 12/31/2022 8:47 AM
[2022-12-31] MEDS: CLOPIDOGREL BISULFATE 75 MG TAB PO SCH (09:15)
[2022-12-31] MEDS: ROSUVASTATIN CALCIUM 5 MG TAB PO SCH (09:15)
[2022-12-31] MEDS: FUROSEMIDE 20 MG TAB PO SCH (09:15)
[2022-12-31] MEDS: dilTIAZem HCL 120 MG CAPCR PO SCH (09:15)
[2022-12-31] MEDS: NYSTATIN SUSP 500,000 U/5 ML UDC PO SCH ×4 (09:15→20:36)
[2022-12-31] MEDS: cloNIDine HCL 0.1 MG TAB PO SCH ×2 (09:16→13:21)
[2022-12-31] MEDS: PANTOprazole 40 MG TAB PO SCH ×2 (09:16→17:37)
[2022-12-31] MEDS: MERCAPTOPURINE 50 MG TAB PO SCH (09:16)
[2022-12-31] MEDS: sulfaSALAzine 500 MG TABLET PO SCH ×2 (13:21→17:36)
[2022-12-31] MEDS: METOPROLOL SUCC 50MG EXT REL TAB PO SCH (13:21)
[2022-12-31 14:55] LABS: Appearance Urine Cloudy (Clear); Bacteria Urine Automated Negative (Negative); Blood Urine Trace (Negative); Color Urine Dark Yellow; Epithelial Cell Urine Auto 20-30 /lpf (0-5); Glucose Urine UA Negative (Negative); Ketones Urine 2+ (Negative); Leukocyte Esterase Urine Negative (Negative); Nitrite Urine Positive (Negative); Protein Urine 2+ (Negative); RBC Urine Automated >30 /hpf (0-4); Specific Gravity Urine 1.026 (1.000-1.030); Urobilinogen Urine Negative (Negative); pH Urine 5.5 (4.5-7.5)
[2022-12-31 15:04] LABS: Bilirubin Urine 1+ (Negative)
[2022-12-31] MEDS: WARFARIN SOD 3 MG TAB PO SCH (17:36)
[2022-12-31] MEDS: ERTAPENEM SODIUM 1,000 MG in SYRINGE 0 ML IV SCH (17:52)
[2022-12-31] MEDS ORDERED: SODIUM CHLORIDE 0.9% 500 ML IV SCH (19:30)
--- NOTE | 2022-12-31 19:55 | Hospitalist Progress Note ---
Date of Service December 31, 2022 Assessment & Plan (1) Ischemia of left lower extremity: Plan: POD #4 - s/p Left Lower Extremity Arteriogram, Mechanical Thrombectomy Left Superficial Femoral Artery, Percutaneous Transluminal Angioplasty and Stenting of Left Superficial Femoral Artery - Dr Duncan Remains on plavix + statin H/H stable Dressings intact R groin Appreciate vascular surgery assistance Legs are perfused and pulses intact (2) Acute pain of left lower extremity: Plan: 2nd #1 above - resolved (3) HTN (hypertension): Plan: Is on complex regimen of meds including clonidine TID, diltiazem 360mg daily, furosemide 20mg daily, metoprolol succinate 200mg daily BPs labile despite this intensive regimen Clonidine is new for her - will start to wean this - ideally she is not on this residential; cut to BID dosing and then cont to wean next 1-2 days (4) Delirium: Plan: Acute encephalopathy 2nd to recent anesthesia/surgery, ICU psychosis, pain meds, etc. She has baseline dementia Supportive care Avoid sedatives May have UTI given low-grade fever today - start abx, follow cultures (5) HLD (hyperlipidemia): Plan: Cont rosuvastatin (6) Ulcerative colitis: Plan: Continue sulfasalazine + mercaptopurine (7) GERD (gastroesophageal reflux disease): Plan: Continue pantoprazole (8) Atrial fibrillation: Plan: Chronic atrial fibrillation Remains on diltiazem and metoprolol succinate but rates are suboptimal Both meds are maxed out If additional rate control is needed - digoxin? other? INR gain today therapeutic on home warfarin regimen (2) repeat INR am (9) Candidiasis of mouth and esophagus: Plan: cont nystatin 5cc qid swish/spit (10) Pacemaker: Plan: placed for SSS in the past (11) Leukocytosis: Plan: with low-grade fever and dirty u/a may have UTI start ertapenem (PCN allergy -anaphlyaxis) 1gm daily follow blood/urine cx's cxr neg for pneumonia Plan PT, OT when able patient appears volume contracted - NS at 50cc/hr x 500cc pt's nephew - POA- updated by phone this evening Admission and Anticipated Discharge Date Admission Date: December 26, 2022 Subjective tele - a.fib, rates very poor, nearly all >100 c/o neck pain on left side otherwise very confused, thinking she is back at [facility] denies cp denies abd pain denies dyspnea Review of Systems Review of Systems: limited ROS as per the subjective portion of this note otherwise very confused Physical Exam Physical Exam: gen - confused, but NAD mouth - MM dry; thrush improved neck - mild torticollis and hyperextended; mildly tender paraspinal muscles to palpation heart - tachy, irregularly irregular, s1 s2 lungs - CTA b/l abd - soft NT ND BS+ vascular - prior angiography site right groin covered with dressings; no obvious hematoma ext - no edema, pulses 2+ b/l feet psych - a/o x 1 only Results & Data Results & Data Vital Signs (Past 12 Hours) Vital Signs Temp Pulse Resp BP Pulse Ox O2 Del Method 12/31/22 15:32 37.0 C 109 H 16 119/73 95 Room Air 12/31/22 15:00 37 C 12/31/22 11:30 36.6 C 111 H 20 146/85 H 94 Room Air Laboratory Results Laboratory Results - last 24 hr 12/31/22 12/31/22 12/31/22 05:34 05:34 05:34 WBC 16.97 H RBC 3.31 L Hgb 11.4 L Hct 33.9 L MCV 102.4 H MCH 34.4 H MCHC 33.6 RDW Std Deviation 62.9 H RDW Coeff of Terrance 16.9 H Plt Count 397 MPV 10.7 Immature Gran % (Auto) 0.6 Neut % (Auto) 82.1 Lymph % (Auto) 3.0 [place] % (Auto) 14.1 Eos % (Auto) 0.0 Baso % (Auto) 0.2 Neut # (Auto) 13.92 H Lymph # (Auto) 0.51 L [place] # (Auto) 2.40 H Eos # (Auto) 0.00 Baso # (Auto) 0.03 Immature Gran # (Auto) 0.11 Absolute Nucleated RBC 0.03 Nucleated RBC % (auto) 0.2 PT 20.9 H INR 2.0 H Sodium 139 Potassium 3.9 Chloride 102 Carbon Dioxide 27 Anion Gap 10 BUN 24 H Creatinine 0.55 L Est Cr Clr Drug Dosing 59.1 Est GFR ( Amer) 97.1 Est GFR (Non-Af Amer) 83.7 BUN/Creatinine Ratio 43.6 H Glucose 128 H Calcium 9.0 Vitamin B12 Folate Urine Color Urine Appearance Urine pH Ur Specific [place] Urine Protein Urine Glucose (UA) Urine Ketones Urine Blood Urine Nitrite Urine Bilirubin Urine Urobilinogen Ur Leukocyte Esterase Urine WBC (Auto) Urine RBC (Auto) U Hyaline Cast (Auto) U Epithel Cells (Auto) Urine Bacteria (Auto) 12/31/22 12/31/22 05:34 12:20 WBC RBC Hgb Hct MCV MCH MCHC RDW Std Deviation RDW Coeff of Terrance Plt Count MPV Immature Gran % (Auto) Neut % (Auto) Lymph % (Auto) [place] % (Auto) Eos % (Auto) Baso % (Auto) Neut # (Auto) Lymph # (Auto) [place] # (Auto) Eos # (Auto) Baso # (Auto) Immature Gran # (Auto) Absolute Nucleated RBC Nucleated RBC % (auto) PT INR Sodium Potassium Chloride Carbon Dioxide Anion Gap BUN Creatinine Est Cr Clr Drug Dosing Est GFR ( Amer) Est GFR (Non-Af Amer) BUN/Creatinine Ratio Glucose Calcium Vitamin B12 1101 H Folate 10.98 Urine Color Dark Yellow Urine Appearance Cloudy A Urine pH 5.5 Ur Specific [place] 1.026 Urine Protein 2+ H Urine Glucose (UA) Negative Urine Ketones 2+ H Urine Blood Trace H Urine Nitrite Positive A Urine Bilirubin 1+ H Urine Urobilinogen Negative Ur Leukocyte Esterase Negative Urine WBC (Auto) 1-5 Urine RBC (Auto) >30 H U Hyaline Cast (Auto) 5-10 H U Epithel Cells (Auto) 20-30 H Urine Bacteria (Auto) Negative PG Care Time/CCT Total # of Minutes Spent Total Time Spent with Patient: Total time spent is greater than 50% in coordination of care (as documented) at patient's floor/unit and/or counseling patient: Coding Level of Care Code 59792 SUB INP/OBS CARE 3/50MIN Diagnoses Ischemia of left lower extremity I99.8 Acute pain of left lower extremity M79.605 HTN (hypertension) I10 Hypertension type: essential hypertension Delirium R41.0 HLD (hyperlipidemia) E78.5 Ulcerative colitis K51.90 GERD (gastroesophageal reflux disease) K21.9 Atrial fibrillation I48.91 Candidiasis of mouth and esophagus B37.81; B37.0 Pacemaker Z95.0 Leukocytosis D72.829 (3) HTN (hypertension) Hypertension type: essential hypertension Qualified Code(s): I10 - Essential (primary) hypertension
[2022-12-31] MEDS: FAMOTIDINE 20 MG TAB PO SCH (20:35)
[2022-12-31] MEDS: ACETAMINOPHEN 500 MG TAB PO SCH (20:39)
[2022-12-31] MEDS: traZODone HCL 50 MG TAB PO SCH (20:41)
[2022-12-31] MEDS: METOPROLOL TARTRATE 1 MG/ML VIAL IV PRN (22:40)
[2023-01-01] MEDS: METOPROLOL TARTRATE 1 MG/ML VIAL IV PRN ×3 (02:24→10:35)
[2023-01-01 08:07] LABS: Hematocrit (blood only) 33.6 % (37.0-47.0); Hemoglobin 11.4 g/dl (12.0-16.0); Mean Corpuscular Hemoglobin 35.3 pg (25.0-34.0); Mean Corpuscular Hgb Conc 33.9 g/dL (32.0-36.0); Mean Platelet Volume 10.8 fL (9.4-12.4); Nucleated RBC # (auto) 0.04 K/uL (0-0.12); Nucleated RBC % (auto) 0.4 %; Platelet Count 406 K/uL (130-400); RDW Coefficient of Variation 17.2 % (11.5-14.5); RDW Standard Deviation 65.5 fL (36.4-46.3); Red Blood Count 3.23 M/uL (4.20-5.40); White Blood Count 11.09 K/ul (4.8-10.8)
[2023-01-01 08:21] LABS: Calcium 8.8 mg/dl (8.6-10.3); Potassium 4.2 mmol/L (3.5-5.1)
[2023-01-01 08:27] LABS: Creatinine Clr Calc Pharmacy 69.4 ml/min; Est GFR (African American) 102.9 ml/min; Est GFR (Non-African American) 88.8 ml/min
[2023-01-01 09:02] LABS: Prothrombin Time 20.6 Seconds (9.0-12.0)
[2023-01-01] MEDS: PANTOprazole 40 MG TAB PO SCH ×3 (09:02→16:43)
[2023-01-01] MEDS: ACETAMINOPHEN 500 MG TAB PO SCH ×4 (09:02→20:41)
[2023-01-01] MEDS: MERCAPTOPURINE 50 MG TAB PO SCH ×2 (09:03→11:43)
[2023-01-01] MEDS: dilTIAZem HCL 120 MG CAPCR PO SCH ×2 (09:03→11:41)
[2023-01-01] MEDS: cloNIDine HCL 0.1 MG TAB PO SCH ×3 (09:03→20:40)
[2023-01-01] MEDS: NYSTATIN SUSP 500,000 U/5 ML UDC PO SCH ×5 (09:03→20:41)
[2023-01-01] MEDS: CLOPIDOGREL BISULFATE 75 MG TAB PO SCH ×2 (09:03→11:41)
[2023-01-01] MEDS: ROSUVASTATIN CALCIUM 5 MG TAB PO SCH ×2 (09:04→11:41)
[2023-01-01] MEDS ORDERED: STAT IV Infusion **Titration per Protocol STA (10:40)
[2023-01-01] MEDS: dilTIAZem HCL 125 MG in DEXTROSE 5% 100 ML IV SCH (10:59)
[2023-01-01] MEDS: METOPROLOL SUCC 50MG EXT REL TAB PO SCH ×2 (11:00→11:39)
[2023-01-01] MEDS: sulfaSALAzine 500 MG TABLET PO SCH ×3 (11:00→16:42)
[2023-01-01] MEDS: ERTAPENEM SODIUM 1,000 MG in SYRINGE 0 ML IV SCH (16:41)
[2023-01-01] MEDS: WARFARIN SOD 3 MG TAB PO SCH (16:42)
--- NOTE | 2023-01-01 17:47 | Hospitalist Progress Note ---
Date of Service January 01, 2023 Assessment & Plan (1) Delirium: Plan: Ongoing, and worse today. Acute encephalopathy 2nd to recent anesthesia/surgery, ICU psychosis, pain meds, ?infectious process,etc. 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 Baseline dementia?? Since confusion is worse today will obtain CT head - r/o large CVA, ICH, etc. Cont ertapenem IV until blood/urine cx's are finalized. Supportive care Avoid sedatives Of note - patient had COVID in early November 2022 and made full recovery from such. (2) Ischemia of left lower extremity: Plan: POD #5 - s/p Left Lower Extremity Arteriogram, Mechanical Thrombectomy Left Superficial Femoral Artery, Percutaneous Transluminal Angioplasty and Stenting of Left Superficial Femoral Artery - Dr Duncan Remains on plavix + statin H/H stable Dressings intact R groin - these were removed after speaking with Dr Duncan; the previous puncture site in R groin was clean, no cellulitis, no hematoma Appreciate vascular surgery assistance Legs are well perfused and pulses intact Hypercoagulable state from COVID infection in November 2022 - did this contribute?? I spoke with Dr Duran in coumadin clinic who follows Ms Meehan -- she recommended checking a clopidogrel resistance assay as she developed this event despite therapeutic INR and use of plavix Some individuals who take clopidogrel have a gene that makes clopidogrel ineffective; if this assay returns + she would need to be changed to Brilenta or some other agent (3) Acute pain of left lower extremity: Plan: 2nd #2 above - resolved (4) HTN (hypertension): Plan: Is on complex regimen of meds including clonidine TID, diltiazem 360mg daily, furosemide 20mg daily, metoprolol succinate 200mg daily BPs labile despite this intensive regimen Clonidine is new for her - cont to wean this to off - 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; cut to 0.05mg BID dosing and then cont to wean off slowly to prevent rebound effect (5) HLD (hyperlipidemia): Plan: Cont rosuvastatin (6) Ulcerative colitis: Plan: Continue sulfasalazine + mercaptopurine (7) GERD (gastroesophageal reflux disease): Plan: Continue pantoprazole (8) Atrial fibrillation: Plan: Chronic atrial fibrillation Remains on diltiazem and metoprolol succinate but rates are suboptimal of note - her rates were very good until she was post-op from her vascular surgery Both meds are maxed out suspect acute pain, her delirium, SIRS, dehydration, etc are contributing to the a.fib w/ RVR INR again today therapeutic on home warfarin regimen she is not symptomatic from the rapid rates, and she is not in CHF defer on adding 3rd AV marian agent treat dehydration treat pain supportive care for delirium cont dilt + meto succ cont coumadin (9) Candidiasis of mouth and esophagus: Plan: cont nystatin 5cc qid swish/spit (10) Pacemaker: Plan: placed for SSS in the past (11) Leukocytosis: Plan: with low-grade fever and dirty u/a may have UTI cont ertapenem (PCN allergy -anaphlyaxis) 1gm daily - day #2 follow blood/urine cx's cxr neg for pneumonia former surgical site R groin clean if cultures return negative would stop ertapenem (12) Dysphagia: Plan: appreciate speech therapy consultation NPO except meds speech to re-eval tomorrow on 01/02 cont IV fluids (13) Neck pain: Plan: patient sleeps in hyper-extended posture of neck her neck is stiff and painful 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 will check cervical spine CT to ensure no other abnormalities Plan PT, OT when able pt's nephew - POA- updated by phone yesterday evening Admission and Anticipated Discharge Date Admission Date: December 26, 2022 Subjective tele - a.fib, rates nearly all >100; some in the 90s but not often patient was severely altered during my visit had received IV morphine for neck pain prior to my arrival she could not give any meaningful history or ROS due to delirium this am patient was having trouble swallowing pills made NPO seen by speech therapy they advised NPO status except for medications urine in johnson bag is quite concentrated Review of Systems 2 Review of Systems: Unobtainable due to cognitive status Physical Exam Physical Exam: gen - very confused, sleepy, sleeps with her head/neck hyper-extended mouth - MM dry; thrush plaques improved neck - mild torticollis and hyperextended; voices that neck is singer back tender (paraspinal muscles, spinous processes in midline) heart - tachy, irregularly irregular, s1 s2, no obvious murmur lungs - CTA b/l abd - soft NT ND BS+ vascular - prior angiography site right groin clean, no cellulitis, no drainage, no hematoma (dressings taken off after permission from Dr Duncan) ext - no edema, pulses 2+ b/l feet psych - a/o x 1 only, very sleepy today, severely altered Results & Data Results & Data Vital Signs (Past 12 Hours) Vital Signs Temp Pulse Pulse Resp BP Pulse Ox O2 Del Method 01/01/23 14:55 36.7 C 120 H 15 162/84 H 92 Room Air 01/01/23 11:03 36.4 C L 108 H 22 148/92 H 93 Room Air 01/01/23 10:58 114 H 01/01/23 10:35 140 H 01/01/23 07:14 37.1 C 113 H 24 155/76 H 95 Room Air Laboratory Results Laboratory Results - last 24 hr 01/01/23 01/01/23 01/01/23 07:49 07:49 07:49 WBC 11.09 H RBC 3.23 L Hgb 11.4 L Hct 33.6 L MCV 104.0 H MCH 35.3 H MCHC 33.9 RDW Std Deviation 65.5 H RDW Coeff of Terrance 17.2 H Plt Count 406 H MPV 10.8 Absolute Nucleated RBC 0.04 Nucleated RBC % (auto) 0.4 PT 20.6 H INR 2.0 H Sodium 140 Potassium 4.2 Chloride 106 Carbon Dioxide 26 Anion Gap 8 BUN 29 H Creatinine 0.46 L Est Cr Clr Drug Dosing 69.4 Est GFR ( Amer) 102.9 Est GFR (Non-Af Amer) 88.8 BUN/Creatinine Ratio 63.0 H Glucose 121 H Calcium 8.8 Diagnostic Findings blood cultures negative urine cx pending PG Care Time/CCT Total # of Minutes Spent Total Time Spent with Patient: Total time spent is greater than 50% in coordination of care (as documented) at patient's floor/unit and/or counseling patient: Coding Level of Care Code 45835 SUB INP/OBS CARE 3/50MIN Diagnoses Delirium R41.0 Ischemia of left lower extremity I99.8 Acute pain of left lower extremity M79.605 HTN (hypertension) I10 Hypertension type: essential hypertension HLD (hyperlipidemia) E78.5 Ulcerative colitis K51.90 GERD (gastroesophageal reflux disease) K21.9 Atrial fibrillation I48.91 Candidiasis of mouth and esophagus B37.81; B37.0 Pacemaker Z95.0 Leukocytosis D72.829 Dysphagia R13.10 Neck pain M54.2 (4) HTN (hypertension) Hypertension type: essential hypertension Qualified Code(s): I10 - Essential (primary) hypertension
[2023-01-01] MEDS ORDERED: HYDROCODONE/ACETAMOPHEN 5/325MG TAB PO PRN (18:30)
[2023-01-01] MEDS: D5W AND 1/2NSS 1,000 ML IV SCH (18:37)
[2023-01-01] MEDS: MELATONIN 3 MG TAB PO PRN (20:40)
[2023-01-01] MEDS: traZODone HCL 50 MG TAB PO SCH (20:40)
[2023-01-01] MEDS: FAMOTIDINE 20 MG TAB PO SCH (20:41)
--- NOTE | 2023-01-01 21:16 | CT Scan Report ---
Exam(s): CT HEAD Without Contrast EXAM: CT Head Without Intravenous Contrast CLINICAL HISTORY: Reason for exam: altered MS, on anticoagulation; eval ICH, etc. TECHNIQUE: Axial computed tomography images of the head/brain without intravenous contrast. CTDI is 39.03 mGy and DLP is 702.46 mGy-cm. Automated exposure control was utilized for the study. A dose lowering technique was utilized adhering to the principles of ALARA. Moderate artifact from motion. COMPARISON: Head CT 05/18/21. FINDINGS: Brain: No mass effect or acute infarct. No acute hemorrhage. Mild/moderate atrophy and chronic white matter disease. Chronic bilateral basal ganglia lacunar infarcts. No significant interval change. Ventricles: No hydrocephalus or midline shift. Bones/joints: No skull fracture. Soft tissues: No scalp hematoma. Sinuses: Clear. Mastoid air cells: No mastoid effusion. IMPRESSION: 1. Atrophy, chronic white matter disease and chronic lacunar infarcts bilateral basal ganglia are stable. 2. No acute infarct, bleed, or acute intracranial abnormality. 3. Moderate motion artifact limits detail. Electronically signed by: Radha Pham M.D. 01/01/23 21:15 PM
--- NOTE | 2023-01-01 21:22 | CT Scan Report ---
Exam(s): CT C SPINE EXAM: CT Cervical Spine Without Intravenous Contrast CLINICAL HISTORY: Reason for exam: severe post neck pain, eval Fx, DJD, etc. TECHNIQUE: Axial computed tomography images of the cervical spine without intravenous contrast. CTDI is 25.96 mGy and DLP is 568.2 mGy-cm. Automated exposure control was utilized for the study. A dose lowering technique was utilized adhering to the principles of ALARA. COMPARISON: None. FINDINGS: Vertebrae: Osteoporosis and endplate osteophytes. No acute fracture. Discs/spinal canal/neural foramina: Moderate degenerative disc and facet disease. Soft tissues: Atherosclerosis aorta, great vessels and carotid bifurcations.. IMPRESSION: 1. Osteoporosis and degenerative change. 2. No fracture or acute bony abnormality. Electronically signed by: Radha Pham M.D. 01/01/23 21:21 PM
[2023-01-02] MEDS: METOPROLOL TARTRATE 1 MG/ML VIAL IV PRN ×3 (01:49→14:32)
--- NOTE | 2023-01-02 07:32 | Hospitalist Progress Note ---
Date of Service January 02, 2023 Assessment & Plan (1) Delirium: Plan: Metabolic encephalopathy 2nd to recent anesthesia/surgery, ICU psychosis, pain meds, ?infectious process, etc Ongoing, and stable from yesterday but definitely not at her baseline CT Head without evidence of new CVA, known chronic lacunar/basilar infarct seen Cont ertapenem IV, add azithro for atypical coverage for poss PNA Supportive care Avoid sedatives Of note - patient had COVID in early November 2022 and made full recovery from such, typically "sharp" per nephew (2) Ischemia of left lower extremity: Plan: POD #6 - s/p Left Lower Extremity Arteriogram, Mechanical Thrombectomy Left Superficial Femoral Artery, Percutaneous Transluminal Angioplasty and Stenting of Left Superficial Femoral Artery - Dr Duncan Remains on Plavix + statin, held today for difficulty with swallowing H/H stable Dressings intact R groin - these were removed after speaking with Dr Duncan; the previous puncture site in R groin was clean, no cellulitis, no hematoma Appreciate vascular surgery follow up in outpatient setting Legs are well perfused and pulses intact Hypercoagulable state from COVID infection in November [address] Duran in Coumadin clinic follows patient, and recommended clopidogrel resistance assay given was on AC during this event, if positive will need Plavix transitioned to Brilinta (3) Acute pain of left lower extremity: Plan: 2nd #2 above - resolved (4) HTN (hypertension): Plan: Is on complex regimen of meds including clonidine TID, diltiazem 360mg daily, furosemide 20mg daily, metoprolol succinate 200mg daily BPs labile despite this intensive regimen, and now NPO today, with labile/brittle HTN (BP normal this evening despite essentially no antihypertensives today) Discontinue clonidine altogether on discharge (5) HLD (hyperlipidemia): Plan: Cont rosuvastatin when able (6) Ulcerative colitis: Plan: Continue sulfasalazine + mercaptopurine when able (7) GERD (gastroesophageal reflux disease): Plan: Continue pantoprazole IV (8) Atrial fibrillation: Plan: Chronic atrial fibrillation Remains on diltiazem gtt, rates suboptimal Suspect acute pain, her delirium, SIRS, dehydration, etc are contributing to the a.fib w/ RVR INR again today therapeutic, did not receive warfarin today due to NPO, continue to monitor INR and initiate Lovenox if necessary She is not symptomatic from the rapid rates, and she is not in CHF, defer on adding 3rd AV marian agent Supportive care for delirium Cont dilt gtt Cont coumadin when able (9) Candidiasis of mouth and esophagus: Plan: cont nystatin 5cc qid swish/spit (10) Pacemaker: Plan: Placed for SSS in the past (11) Leukocytosis: Plan: With low-grade fever and dirty u/a, however UCx <[address] with bibasilar infiltrates pneumonitis/PNA Cont ertapenem (PCN allergy -anaphylaxis) 1gm daily - day #3, MRSA nares negative Follow blood cx's Former surgical site R groin clean (12) Dysphagia: Plan: Appreciate speech therapy consultation NPO Speech to re-eval tomorrow Cont IV fluids (13) Neck pain: Plan: Patient sleeps in hyper-extended posture of neck her neck is stiff and painful 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 Review of Systems Review of Systems: All systems reviewed & are unremarkable except as noted in Subjective Physical Exam Constitutional: WD/WN, vitals as above Respiratory: normal respiratory effort, lungs clear to auscultation tachypneic, breathing not labored, no retractions Cardiovascular: HR irregularly irregular. no peripheral edema Gastrointestinal (Abdomen): normal bowel sounds, soft, nontender, no hepatosplenomegaly Skin: no rashes, warm and dry Psychiatric: alert and oriented to self, slow to respond, tired Results & Data Results & Data Vital Signs (Past 12 Hours) Vital Signs Temp Pulse Pulse Pulse Resp BP BP 01/02/23 07:24 36.6 C 114 H 18 01/02/23 05:42 100 H 165/90 H 01/02/23 05:15 132 H 139/82 01/02/23 03:14 36.6 C 110 H 20 101/76 01/02/23 02:08 98 H 163/85 H 01/02/23 01:49 143 H 138/84 01/01/23 23:08 36.6 C 106 H 22 145/80 H 01/01/23 20:01 36.5 C 118 H 18 128/92 BP Pulse Ox O2 Del Method 01/02/23 07:24 170/77 H 93 Room Air 01/02/23 05:42 01/02/23 05:15 01/02/23 03:14 93 Room Air 01/02/23 02:08 01/02/23 01:49 01/01/23 23:08 93 Room Air 01/01/23 20:01 94 Room Air PG Care Time/CCT Total # of Minutes Spent Total Time Spent with Patient: Total time spent is greater than 50% in coordination of care (as documented) at patient's floor/unit and/or counseling patient: Coding Level of Care Code 34699 SUB INP/OBS CARE 3/50MIN Diagnoses Delirium R41.0 Ischemia of left lower extremity I99.8 Acute pain of left lower extremity M79.605 HTN (hypertension) I10 Hypertension type: essential hypertension HLD (hyperlipidemia) E78.5 Ulcerative colitis K51.90 GERD (gastroesophageal reflux disease) K21.9 Atrial fibrillation I48.91 Candidiasis of mouth and esophagus B37.81; B37.0 Pacemaker Z95.0 Leukocytosis D72.829 Dysphagia R13.10 Neck pain M54.2 (4) HTN (hypertension) Hypertension type: essential hypertension Qualified Code(s): I10 - Essential (primary) hypertension
[2023-01-02 07:49] LABS: Hematocrit (blood only) 32.9 % (37.0-47.0); Mean Corpuscular Hemoglobin 34.4 pg (25.0-34.0); Mean Corpuscular Hgb Conc 33.4 g/dL (32.0-36.0); Mean Corpuscular Volume 102.8 fL (80.0-100.0); Mean Platelet Volume 10.1 fL (9.4-12.4); Platelet Count 452 K/uL (130-400); RDW Coefficient of Variation 17.2 % (11.5-14.5); RDW Standard Deviation 64.6 fL (36.4-46.3); White Blood Count 17.37 K/ul (4.8-10.8)
[2023-01-02 08:02] LABS: BUN Creatinine Ratio 61.9 (10-20); Calcium 8.9 mg/dl (8.6-10.3); Creatinine Clr Calc Pharmacy 76.1 ml/min; Est GFR (African American) 106.1 ml/min; Est GFR (Non-African American) 91.5 ml/min
[2023-01-02 08:13] LABS: INR 2.4 (0.9-1.1); Prothrombin Time 25.1 Seconds (9.0-12.0)
[2023-01-02] MEDS: D5W AND 1/2NSS 1,000 ML IV SCH (09:14)
[2023-01-02] MEDS: ACETAMINOPHEN 500 MG TAB PO SCH (10:13)
[2023-01-02] MEDS: PANTOprazole 40 MG TAB PO SCH (10:13)
[2023-01-02] MEDS: dilTIAZem HCL 120 MG CAPCR PO SCH (10:14)
[2023-01-02] MEDS: ROSUVASTATIN CALCIUM 5 MG TAB PO SCH (10:14)
[2023-01-02] MEDS: NYSTATIN SUSP 500,000 U/5 ML UDC PO SCH ×4 (10:14→21:29)
[2023-01-02] MEDS: cloNIDine HCL 0.1 MG TAB PO SCH ×2 (10:14→21:29)
[2023-01-02] MEDS: MERCAPTOPURINE 50 MG TAB PO SCH (10:14)
[2023-01-02] MEDS: CLOPIDOGREL BISULFATE 75 MG TAB PO SCH (10:14)
[2023-01-02] MEDS ORDERED: ACETAMINOPHEN 1,000 MG/100 ML VIAL IV PRN (10:25)
[2023-01-02] MEDS: dilTIAZem HCL 125 MG in DEXTROSE 5% 100 ML IV SCH ×2 (11:02→21:30)
[2023-01-02 11:18] LABS: Allen Test Pos (Pos); Base Excess ABG 5.6 mEq/L (-9-1.8); HCO3 ABG 30 mmol/L (19-24); Oxygen Saturation ABG 96.3 % (90-95); PCO2 ABG 41 mmHg (35-46); PO2 ABG 75 mmHg (80-95); pH ABG 7.47 (7.35-7.45)
[2023-01-02] MEDS: sulfaSALAzine 500 MG TABLET PO SCH ×2 (11:57→17:06)
[2023-01-02] MEDS: METOPROLOL SUCC 50MG EXT REL TAB PO SCH (11:57)
--- NOTE | 2023-01-02 12:49 | XRay Report ---
XR chest 1V portable CLINICAL HISTORY: elevated RR TECHNIQUE: Single frontal radiograph of the chest was obtained. Comparison: Comparison is made to chest radiograph 12/31/2022 FINDINGS: Dual lead pacemaker is seen. Calcified aortic knob is seen. The lungs are clear. Small left pleural e ffusion is seen. IMPRESSION: Small left pleural effusion, similar to prior exam. No pneumonia. ACT 112: Negative or not required by law. Electronically signed by: Chris Malcolm M.D. 01/02/2023 12:47 PM
--- NOTE | 2023-01-02 15:11 | CT Scan Report ---
CT SCAN OF THE CHEST WITHOUT IV CONTRAST CLINICAL HISTORY: Tachypnea. COMPARISON STUDY: Chest x-ray dated 01/02/2023. Chest CT dated 11/10/2015. TECHNIQUE: CT scan of the thorax was performed from the thoracic inlet to the upper abdomen. Images are reviewed in the axial, sagittal, and coronal planes. IV contrast was not administered for this ex amination as per the referring clinician. A dose lowering technique was utilized adhering to the khurram lan of CORNEILUS. The examination is degraded by hyperkyphosis, motion artifact, and streak artifact from the arms which could not be elevated above the chest. CT DOSE: 271.64 mGy.cm FINDINGS: Thyroid: Normal in size and heterogeneous in attenuation. Thoracic aorta: There is evidence of previous aortic valve surgery. There is atherosclerotic calcific ation of the thoracic. Ectasia of the ascending thoracic aorta similar to previous and measures up to 3.9 cm in diameter. The remainder of the thoracic aorta is normal in caliber, and the arch demonstra elvin standard 3-vessel anatomy. Heart: A cardiac pacemaker is present in the left lower chest wall. The heart is enlarged and without pericardial effusion. The coronary arteries and mitral annulus are densely calcified. There is dimin ished attenuation of the cardiac blood pool as compared to the myocardium suggesting anemia. Lungs and pleural spaces: Evaluation of the lung parenchyma is degraded by motion artifact. There are trace pleural effusions, right larger than left noting dependent atelectasis. Mild patchy airspace c onsolidation is seen at both lung bases, greatest in the right middle lobe and the left lower lobe. M inimal patchy consolidation is also seen at the right apex. The trachea and central airways are paten t. There are scattered calcified granulomas. Calcified pleural plaque is seen at the left lung base. Moderate lobular septal thickening could represent acute versus chronic congestive change. Mediastinum: There is no mediastinal lymphadenopathy. Ashley: Not well assessed without IV contrast. Axillae: Surgical clips are noted in the right axilla. There is no axillary lymphadenopathy. Upper abdomen: There are calcified splenic granulomas. A 2.2 cm exophytic cyst arises from the left k idney. There is a 4 mm nonobstructing left renal calculus. Skeletal structures: The skeletal structures are osteopenic. The skeletal structures are osteopenic. There is a chronic compression deformity of L2 with evidence of previous vertebroplasty. There is als o chronic posttraumatic deformity of T11. Degenerative change and hyperkyphosis is seen throughout th e thoracic spine. No lytic or blastic bony lesions are seen. Arthritic change is seen in the shoulder s. There are chronic/healed left-sided rib fractures. IMPRESSION: 1. Cardiomegaly and cardiac pacemaker. Mild intralobular septal thickening could represent acute vers us chronic congestive change. Correlate clinically. 2. Mild patchy airspace consolidation as above, greatest at the lung bases. The appearance favors an infectious/inflammatory pneumonitis. Clinical correlation would be required and radiographic follow-u p to resolution is recommended. 3. Trace pleural effusions, right larger than left. 4. Additional findings as above. ACT 112: Negative or not required by law. Electronically signed by: Jordi Parrish M.D. 01/02/2023 3:09 PM
[2023-01-02] MEDS: WARFARIN SOD 3 MG TAB PO SCH (17:05)
[2023-01-02] MEDS: ERTAPENEM SODIUM 1,000 MG in SYRINGE 0 ML IV SCH (17:55)
[2023-01-02 18:15] LABS: Appearance Urine Cloudy (Clear); Bacteria Urine Automated Negative (Negative); Blood Urine 1+ (Negative); Color Urine Dark Yellow; Epithelial Cell Urine Auto >30 /lpf (0-5); Glucose Urine UA Negative (Negative); Ketones Urine Trace (Negative); Leukocyte Esterase Urine Negative (Negative); Nitrite Urine Positive (Negative); Protein Urine 2+ (Negative); Specific Gravity Urine 1.029 (1.000-1.030); Urobilinogen Urine Negative (Negative)
[2023-01-02 18:17] LABS: Bilirubin Urine 1+ (Negative)
[2023-01-02] MEDS ORDERED: SODIUM CHLORIDE 0.9% 1000ML 1,000 ML IV SCH (20:30)
[2023-01-02] MEDS: AZITHROMYCIN 500 MG in DEXTROSE 5% 250 ML IV SCH (21:24)
[2023-01-02] MEDS: PANTOprazole 40 MG in SYRINGE 0 ML IV SCH (21:27)
[2023-01-03] MEDS: dilTIAZem HCL 125 MG in DEXTROSE 5% 100 ML IV SCH ×3 (04:38→21:25)
[2023-01-03 07:32] LABS: INR 3.3 (0.9-1.1); Prothrombin Time 33.9 Seconds (9.0-12.0)
--- NOTE | 2023-01-03 07:58 | Hospitalist Progress Note ---
Date of Service January 03, 2023 Assessment & Plan (1) Delirium: Plan: Metabolic encephalopathy suspected secondary to infectious process, likely lung primary Ongoing, and perhaps a touch better today compared to yesterday CT Head without evidence of new CVA, known chronic lacunar/basilar infarct seen ESR and CRP elevated, procal detectable but not grossly severely elevated CBC reviewed, WBC count improved today from 17 to 11, Cont ertapenem/azithro for pneumonia Has been listed as permissive aspiration per Speech in the past, family member confirms this and confirms advanced directive Avoid sedatives Neurology asked to assess patient to see what their clinical suspicion of meningitis/encephalitis is, suspect unlikely given symptoms improving, suspect encephalopathy due to pneumonia/hospital delirium (2) Aspiration pneumonia: Plan: See above Continue ertapenem/azithromycin, monitor respiratory status, daily CBC NPO for now, contact Speech when patient is more alert and able to trial PO (3) Leukocytosis: Plan: Improved on today's CBC With dirty UA, however UCx <[address] with bibasilar infiltrates pneumonitis/PNA, history of permissive aspiration BCx NGTD Former surgical site R groin clean, nontender, no evidence of infection Less suspicious of meningitis/encephalitis given at least marginal improvement today with PNA tx Lyme negative Cont ertapenem (PCN allergy -anaphylaxis) and azithromycin, MRSA nares negative (4) Ischemia of left lower extremity: Plan: S/p Left Lower Extremity Arteriogram, Mechanical Thrombectomy Left Superficial Femoral Artery, Percutaneous Transluminal Angioplasty and Stenting of Left Superficial Femoral Artery - Dr Duncan Plavix + statin held 01/02 for difficulty with swallowing H/H stable R groin previous puncture site is clean, no cellulitis, no hematoma Legs are well perfused and pulses intact Appreciate vascular surgery follow up in outpatient setting Hypercoagulable state from COVID infection in November [address] Duran in Coumadin clinic follows patient, recommended clopidogrel resistance assay given was on AC during this event, if positive will need Plavix transitioned to Brilinta (5) Atrial fibrillation: Plan: Chronic atrial fibrillation Remains on diltiazem gtt, rates suboptimal, added metoprolol tartrate 5mg IV q6h Suspect acute pain, her delirium, SIRS, dehydration, etc are contributing to the a.fib w/ RVR INR reviewed, 3.3 today, holding warfarin due to NPO (will resume when able to tolerate PO) She is not symptomatic from the rapid rates, and she is not in CHF, defer on adding 3rd AV marian agent Supportive care for delirium (6) HTN (hypertension): Plan: Is on complex regimen of meds including clonidine TID, diltiazem 360mg daily, furosemide 20mg daily, metoprolol succinate 200mg daily BPs labile despite this intensive regimen, and now NPO, with labile/brittle HTN (BP normal at times despite receiving very little in the way of hypertensive in last 24 hours) Discontinue clonidine altogether today, monitor for rebound HTN (7) Acute pain of left lower extremity: Plan: 2nd to surgery, resolved (8) HLD (hyperlipidemia): Plan: Cont rosuvastatin when able (9) Ulcerative colitis: Plan: Continue sulfasalazine + mercaptopurine when able (10) GERD (gastroesophageal reflux disease): Plan: Continue pantoprazole IV (11) Candidiasis of mouth and esophagus: Plan: Cont nystatin when able (12) Pacemaker: Plan: Placed for SSS in the past (13) Dysphagia: Plan: Appreciate speech therapy consultation NPO Cont IV fluids (14) Neck pain: Plan: Hyperextended neck is improved today, denies neck pain 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 Today he is arousable to voice, no complaints of chest pain, shortness of breath. Does note a little bit of right low back pain, no nausea, no vomiting. No abdominal pain either reported or to palpation, no diarrhea reported by nursing staff. Vitals have been stable with tele showing AFIB in 110s, and patient has been afebrile. She continues to be mildly tachypneic. She denies any upper or lower extremity pain or groin pain. Review of Systems Constitutional: no fever, no chills and no malaise Ear, Nose, Mouth, Throat: no nasal congestion and no epistaxis Respiratory: no cough and no dyspnea Cardiovascular: no chest pain, no palpitations and no edema Gastrointestinal: no abdominal pain, no constipation and no diarrhea/loose st ools Integumentary: no rash and no skin ulcer Neurologic: no localized weakness and no loss of sensation Physical Exam Constitutional: + ill appearing; no acute distress Eyes: PERRL, conjunctivae normal, anicteric sclerae ENMT: external ear and nose normal, oropharynx normal Neck: trachea midline, no thyromegaly neck extension improved today with some pillows Respiratory: Lungs with bibasilar crackles, mild tachypnea, no wheezes Cardiovascular: HR irregularly irregular, mildly tachycardic, no peripheral edema DP and PT pulses Doppler-able on both lower extremities, both LE warm to the touch Gastrointestinal (Abdomen): normal bowel sounds, soft, nontender, no hepatosplenomegaly Musculoskeletal: no cyanosis or clubbing, extremities motor strength 5/5 Skin: no rashes, warm and dry no wounds noted to upper or lower extremities, trunk, back Pressure dressings intact to sacrum and bilateral heels, no evidence of ulceration or wound Neurologic: Alert and oriented to self and situation but with forgetfulness about certain details. Asking when she is going home and if she can talk to her family member PERRJOSHUA, EOMI, no nystagmus. Grossly normal visual acuity bilaterally Bilateral UE, LE, and face without sensory or motor deficits. No slurred speech No pronator drift. No tremor Able to answer questions appropriately, though slowly and with some word finding. Able to follow commands, can repeat sentences, and answer questions (ex: touch my finger with your right hand, asking what my glasses are for and answering "to see") Results & Data Results & Data Vital Signs (Past 12 Hours) Vital Signs Temp Pulse Pulse Resp BP Pulse Ox O2 Del Method 01/03/23 07:27 Oxymask 01/03/23 03:41 36.4 C L 80 20 142/64 H 98 Oxymask 01/03/23 00:00 95 H 01/02/23 20:00 Oxymask 01/02/23 23:28 36.5 C 96 H 24 121/76 99 Oxymask 01/02/23 20:46 37.3 C 100 H 20 149/66 H 98 Oxymask O2 Flow Rate 01/03/23 07:27 2 01/03/23 03:41 1.5 01/03/23 00:00 01/02/23 20:00 1 01/02/23 23:28 1 01/02/23 20:46 1 PG Care Time/CCT Total # of Minutes Spent Total Time Spent with Patient: Total time spent is greater than 50% in coordination of care (as documented) at patient's floor/unit and/or counseling patient: Coding Level of Care Code 48491 SUB INP/OBS CARE 3/50MIN Diagnoses Delirium R41.0 Aspiration pneumonia J69.0 Leukocytosis D72.829 Ischemia of left lower extremity I99.8 Atrial fibrillation I48.91 HTN (hypertension) I10 Hypertension type: essential hypertension Acute pain of left lower extremity M79.605 HLD (hyperlipidemia) E78.5 Ulcerative colitis K51.90 GERD (gastroesophageal reflux disease) K21.9 Candidiasis of mouth and esophagus B37.81; B37.0 Pacemaker Z95.0 Dysphagia R13.10 Neck pain M54.2 (6) HTN (hypertension) Hypertension type: essential hypertension Qualified Code(s): I10 - Essential (primary) hypertension
[2023-01-03 08:40] LABS: Basophils # (auto) 0.03 K/uL (0-0.2); Basophils % (auto) 0.3 %; Eosinophils # (auto) 0.04 K/uL (0-0.50); Eosinophils % (auto) 0.4 %; Hematocrit (blood only) 32.1 % (37.0-47.0); Hemoglobin 10.3 g/dl (12.0-16.0); Immature Granulocytes # (auto) 0.06 K/uL (0.01-0.20); Immature Granulocytes % (auto) 0.5 %; Lymphocytes # (auto) 0.75 K/uL (1.2-3.4); Lymphocytes % (auto) 6.6 %; Mean Corpuscular Hemoglobin 34.1 pg (25.0-34.0); Mean Corpuscular Hgb Conc 32.1 g/dL (32.0-36.0); Mean Corpuscular Volume 106.3 fL (80.0-100.0); Mean Platelet Volume 10.8 fL (9.4-12.4); Monocytes # (auto) 1.89 K/uL (0.11-0.59); Monocytes % (auto) 16.7 %; Neutrophils # (auto) 8.56 K/uL (1.40-6.50); Neutrophils % (auto) 75.5 %; Platelet Count 493 K/uL (130-400); RDW Coefficient of Variation 17.5 % (11.5-14.5); Red Blood Count 3.02 M/uL (4.20-5.40); White Blood Count 11.33 K/ul (4.8-10.8)
[2023-01-03 08:44] LABS: Albumin Globulin Ratio 1.1 (0.9-2); Albumin Level 3.1 gm/dl (3.4-5.0); Bilirubin,Total 0.5 mg/dl (0.2-1.0); C Reactive Protein 13.78 mg/dl (0-0.5); Calcium 8.6 mg/dl (8.6-10.3); Creatinine Clr Calc Pharmacy 82.9 ml/min; Est GFR (African American) 107.8 ml/min; Globulin 2.9 gm/dl (2.5-4.0)
[2023-01-03] MEDS: cloNIDine HCL 0.1 MG TAB PO SCH (09:07)
[2023-01-03] MEDS: FAMOTIDINE 20 MG in SYRINGE 3 ML IV SCH (09:07)
[2023-01-03] MEDS: NYSTATIN SUSP 500,000 U/5 ML UDC PO SCH ×5 (09:07→21:36)
[2023-01-03] MEDS: PANTOprazole 40 MG in SYRINGE 0 ML IV SCH ×2 (09:07→20:09)
[2023-01-03] MEDS: ROSUVASTATIN CALCIUM 5 MG TAB PO SCH (09:08)
[2023-01-03 09:28] LABS: Procalcitonin 0.05 ng/ml (0-0.5)
[2023-01-03 09:34] LABS: Lyme Ab IgG w/WB Rflx Negative (Negative); Lyme Ab IgM w/WB Rflx Negative (Negative)
[2023-01-03] MEDS: sulfaSALAzine 500 MG TABLET PO SCH ×2 (11:54→15:51)
[2023-01-03] MEDS: METOPROLOL SUCC 50MG EXT REL TAB PO SCH (11:54)
[2023-01-03] MEDS ORDERED: SODIUM CHLORIDE 0.9% 1000ML 1,000 ML IV ONE (16:12)
--- NOTE | 2023-01-03 16:27 | Neurology Consultation ---
Date of Consultation January 03, 2023 Assessment & Plan (1) Delirium: Improving hospital delirium in an 87 yo F with afib admitted for an ischemic leg. While I am unable to rule out a small embolic stroke, the patient has no focal deficits, a normal CT head and is already anticoagulated +plavix. An MRI is unable to be obtained due to her pacer but would not plant changer given her current medications. I otherwise do not see any readily reversible causes, she is not on any concerning medications and labwork is within appropriate range for the clinical context. No evidence of seizure activity, no evidence of RETAIL SALES ADVISOR infection. Given her improvement today I suspect the encephalopathy is clearing but slow given her age. Would continue standard delirium precautions - out of bed to chair, natural light, strict bedtime protocol, constant reorientation. -- Delirium protocols as above, otherwise no further neurologic workup, please contact us with any additional questions. Telehealth Consultation Telehealth Information Telehealth Information: I performed this visit using a real-time telehealth connection between my location and the patients location ([facility]). After connecting through interactive tele-video, patient was identified by name and date of and/or wristband check.Patient (or authorized healthcare agency service representative) was informed that this was a telemedicine visit and it was being conducted confidentially over secure lines. My office door was closed and no one else was present in the room with me.Patient (or authorized healthcare agency service representative) provided consent to proceed with the visit, expressed an understanding of privacy and security of the telemedicine visit, and gave permission to have a hospital agency service representative in the room in order to assist with the visit and to conduct portions of the visit, as needed. I informed the patient (or authorized healthcare agency service representative) that I reviewed their record and presented the opportunity for them to ask any questions regarding the visit today. The patient agreed to participate. History of Present Illness Reason for Consultation: Encephalopathy Requesting Physician: Dr. Kohler Attending Physician: Sherry Kohler, DO History of Present Illness Charline Meehan is an 87 yo F on HD 8 for leg ischemia s/p angiographic intervention. Since then she has been delirious and disoriented to her situation. Today however, per nursing she is more alert and was able to tell me that she was comfortable. She understands she is in the hospital but is otherwise confused as to the date and her situation. No prior history of delirium per chart review, including during a recent covid infection. Otherwise nursing has not seen any focal neurologic deficits. Allergies Allergy/AdvReac Type Severity Reaction Status Date / Time Penicillins Allergy Severe THROAT Verified 10/13/22 11:18 SWELLS, PASSES OUT aspirin Allergy Intermediate WELTS Verified 10/13/22 11:18 AROUND EYES Sweet Grass And Derivatives Allergy Mild Runny/stuffy Verified 10/13/22 11:18 nose grapefruit Allergy Mild Nasal Verified 01/02/23 09:37 Discharge lemon Allergy Mild Nasal Verified 01/02/23 09:37 Discharge mashpee Allergy Mild Nasal Verified 01/02/23 09:37 Discharge orange Allergy Mild Nasal Verified 01/02/23 09:37 Discharge mayonnaise Allergy Unknown Unknown Verified 01/02/23 09:37 chicken derived AdvReac Intermediate DIARRHEA Verified 10/13/22 11:18 chocolate flavor AdvReac Intermediate DIARRHEA Verified 10/13/22 11:18 lactose AdvReac Intermediate GI upset Verified 10/13/22 11:18 grass pollen-perennial rye, AdvReac Mild RUNNY Verified 10/13/22 11:18 standar NOSE/SINUS ISSUES mushroom AdvReac Mild GI SYMPTOMS Verified 10/13/22 11:18 pollen extracts AdvReac Mild RUNNY Verified 10/13/22 11:18 NOSE/SINUS ISSUES soy AdvReac Mild GI SYMPTOMS Verified 10/13/22 11:18 Pbqrfhl-XFH-NfS Reductase AdvReac Mild DID NOT Verified 10/13/22 11:18 Inhibitor WORK [Fcquxdg-Nba-Nqu Reductase Inhibitor] lorazepam AdvReac Hallucinati Verified 10/13/22 11:18 ng Home Medications Medication Instructions Recorded Confirmed Type walker #1 ea 03/11/19 12/26/22 Rx cholecalciferol (vitamin D3) 50 2,000 unit PO DAILY@1200 07/05/20 12/26/22 History mcg (2,000 unit) capsule (Vitamin D3) multivitamin with minerals-folic 1 tab PO DAILY@1200 07/05/20 12/26/22 History acid 200 mcg chewable tablet (Adult One Daily Gummies) cyclosporine 0.05 % eye drops in a 1 drp OPB Q12H 11/23/20 12/26/22 History dropperette (Restasis) loratadine 10 mg tablet (Claritin) 10 mg PO HS PRN Allergy Symptoms 11/23/20 12/26/22 History denosumab 60 mg/mL subcutaneous 60 mg subcut .COMPLEX 02/25/21 12/26/22 History syringe (Prolia) calcium carb,cit ER 600 mg-vit D3 1 tab PO BID 04/07/21 12/26/22 History 12.5 mcg (500 unit) tablet,ext.rel (Citracal-D3 Slow Release) vitamins A,C,F-zsiv-zyigtp 2,148 1 tab PO BID 04/07/21 12/26/22 History mcg-113 mg-45 mg-17.4 mg tablet (PreserVision AREDS) doxycycline hyclate 100 mg capsule 100 mg PO ONCE PRN dental work #10 05/04/21 12/26/22 Rx caps acetaminophen 325 mg tablet 650 mg PO Q4H PRN pain 07/19/21 12/26/22 History mercaptopurine 50 mg tablet See Rx Instructions .Route 01/04/22 12/26/22 Rx .COMPLEX #135 tabs furosemide 20 mg tablet (Lasix) 20 mg PO DAILY #90 tabs 03/29/22 12/26/22 Rx famotidine 20 mg tablet 20 mg PO HS #90 tabs 04/05/22 12/26/22 Rx metoprolol succinate 100 mg 200 mg PO DAILY@1200 #180 tabs 04/05/22 12/26/22 Rx tablet,extended release 24 hr clonidine HCl 0.1 mg tablet 0.1 mg PO TID #270 tabs 04/26/22 12/26/22 Rx warfarin 3 mg tablet See Rx Instructions PO UD #140 tabs 07/18/22 12/26/22 Rx clopidogrel 75 mg tablet (Plavix) 75 mg PO DAILY #90 tabs 08/23/22 12/26/22 Rx rosuvastatin 5 mg tablet 5 mg PO DAILY #90 tabs 08/23/22 12/26/22 Rx diltiazem HCl 360 mg 360 mg PO DAILY #90 caps 10/02/22 12/26/22 Rx capsule,extended release 24 hr (Cardizem CD) pantoprazole 40 mg tablet,delayed 40 mg PO BIDM 12/26/22 12/26/22 History release pantoprazole 40 mg tablet,delayed 40 mg PO BIDM 12/26/22 12/26/22 History release potassium chloride 10 mEq 10 meq PO QDB 12/26/22 12/26/22 History capsule,extended release sulfasalazine 500 mg tablet 1,000 mg PO BIDM 12/26/22 12/26/22 History trazodone 50 mg tablet 25 mg PO HS 12/26/22 12/26/22 History Patient History Medical History (Updated 01/03/23 @ 16:01 by Sherry Kohler DO) Acute pancreatitis Aortic stenosis Atrial fibrillation on warfarin/plavix Breast cancer (08/27/15) "Abnormal right breast mammogram 08/01/2015 Status post biopsy 08/27/2015 10:00 lesion invasive ductal carcinoma, grade 1 Estrogen receptor positive, progesterone receptor negative, HER-2/quique negative 11:00 lesion invasive lobular carcinoma, grade 1 Estrogen receptor positive, progesterone receptor positive, HER-2/quique negative Status post lumpectomy and sentinel lymph node biopsy 09/27/2015 Lobular and ductal carcinoma Stage pT1b pN1a M0 Radiation therapy stopped 01/26/2016 received 3780 cGy. Treatments stopped early due to admission for compression fracture and inability to tolerate being in the treatment position" On 02/21/16 15:06 Frances Hogan wrote "Abnormal right breast mammogram 08/01/2015 Status post biopsy 08/27/2015 10:00 lesion invasive ductal carcinoma, grade 1 Estrogen receptor positive, progesterone receptor negative, HER-2/quique neg ative 11:00 lesion invasive lobular carcinoma, grade 1 Estrogen receptor positive, progesterone receptor positive, HER-2/quique negative Status post lumpectomy and sentinel lymph node biopsy 09/27/2015 Lobular and ductal carcinoma Stage pT1b pN1a M0" On 02/21/16 15:06 Frances Hogan wrote "Abnormal right breast mammogram 08/01/2015 Status post biopsy 08/27/2015 10:00 lesion invasive ductal carcinoma, grade 1 Estrogen receptor positive, progesterone receptor negative, HER-2/quique negative 11:00 lesion invasive lobular carcinoma, grade 1 Estrogen receptor positive, progesterone receptor positive, HER-2/quique negative Status post lumpectomy and sentinel lymph node biopsy 09/27/2015 Lobular and ductal carcinoma Stage pT1b pN1a M0 Status post radiation therapy, treatment stopped 01/26/2016 received 3780 cGy " On 10/14/15 13:28 Frances Hogan wrote "Abnormal right breast mammogram 08/01/2015 Status post biopsy 08/27/2015 10:00 lesion invasive ductal carcinoma, grade 1 Estrogen receptor positive, progesterone receptor negative, HER-2/quique negative 11:00 lesion invasive lobular carcinoma, grade 1 Estrogen receptor positive, progesterone receptor positive, HER-2/quique negative Status post lumpectomy and sentinel lymph node biopsy 09/27/2015 Lobular and ductal carcinoma Stage pT1b pN1a M0 " Breast cancer RT BREAST (SX AND RADIATION) CHF (congestive heart failure) Compression fracture of lumbar vertebra CVA (cerebrovascular accident) Duodenal obstruction Elevated INR Facial basal cell cancer NOSE Gastric outlet obstruction Gastric ulcer GERD (gastroesophageal reflux disease) HLD (hyperlipidemia) HTN (hypertension) Hypertensive urgency Incarcerated paraesophageal hernia Intermittent small bowel obstruction Left sided abdominal pain Lower extremity pain, left On anticoagulant therapy warfarin/plavix daily Osteoarthritis 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" (FOLLOWED BY [facility]) Pancreatitis Paraesophageal hiatal hernia Sarcoidosis DX 1966 (LYMPH NODES AND LUNGS) Small bowel obstruction SSS (sick sinus syndrome) (02/18/14) Stroke OVER 20 YEARS AGO (NO CURRENT PROBLEMS) Ulcerative colitis Ulcerative colitis "REMISSION" Unintentional weight loss per pt reason for colonoscopy Vomiting Surgical History H/O total hysterectomy UTERINE MASS REMOVED (BENIGN) History of appendectomy History of cataract surgery History of colonoscopy History of esophagogastroduodenoscopy (EGD) recently had 03/2019 [place] [facility] [place] they found 2 ulcers-1 in esophagus and 1 in stomach History of herniorrhaphy History of kyphoplasty History of tonsillectomy and adenoidectomy History of tooth extraction Hx of lumpectomy RT Family History Brother Coronary heart disease Mother Coronary heart disease Benign essential HTN Myocardial infarction Stroke Other PVD (peripheral vascular disease) Denies family history of Ovarian cancer Prostate cancer Breast cancer Lung cancer Colorectal cancer Social History Smoking Status: Never smoker Second Hand Exposure: No; Do You Dip or Chew Tobacco: No; Hx Alcohol Use: No Hx Substance Use: No Preferred Language: Bengali Communication Ability: Effective Visual Impairment: Limited Hearing Ability: Normal Tribal Judge Required: No Beliefs That Will Affect Care: None marital status: Single Current Living Situation: Other Current Living Situation Comment: [place] - independent living current occupational status: retired How many Children do You have: 1 Feels Safe at Home: Yes Childhood Exposure to Second-Hand Smoke: No caffeine: Yes (drinks soda ) Dental Care, Regularly: Yes Physical Activity Frequency: Daily Physical Activity Frequency Comment: walks daily Seatbelt Use: always Sunscreen Use: No Assistive Devices: Cane, Walker and Other Review of Systems Denies pain, weakness, numbness Physical Exam Neurological Examination: Mental Status: Awake and alert. Oriented to person, place. Fluent. Comprehension intact. Cranial Nerves: II: Reads NIHSS cards, pupils 3/3 to 2/2 III/IV/: Versions intact without nystagmus, no gaze preference. V: Facial sensation symmetric to light touch VII: Facial expression symmetric VIII: Hearing intact to voice IX/X: Palate elevates symmetrically Motor: Strength was symmetric and antigravity throughout. Pronator drift was absent. There were no abnormal movements. Sensory: Sensation to light touch was intact. Coordination: No dysmetria Reflexes: Unable to assess over telemedicine Results & Data Vital Signs (Past 12 Hours) Vital Signs Temp Pulse Pulse Resp BP Pulse Ox O2 Del Method 01/03/23 12:59 120 H 153/60 H 01/03/23 13:16 108 H 01/03/23 10:23 36.3 C L 107 H 24 129/80 97 Oxymask 01/03/23 07:21 36.3 C L 107 H 20 157/65 H 98 Oxymask 01/03/23 07:27 Oxymask O2 Flow Rate 01/03/23 12:59 01/03/23 13:16 01/03/23 10:23 1 01/03/23 07:21 1 01/03/23 07:27 2 Laboratory Results Abnormal lab results 01/02/23 01/03/23 01/03/23 Range/Units 17:47 06:21 06:28 WBC 11.33 H (4.8-10.8) K/ul RBC 3.02 L (4.20-5.40) M/uL Hgb 10.3 L (12.0-16.0) g/dl Hct 32.1 L (37.0-47.0) % MCV 106.3 H (80.0-100.0) fL MCH 34.1 H (25.0-34.0) pg RDW Std Deviation 69.0 H (36.4-46.3) fL RDW Coeff of Terrance 17.5 H (11.5-14.5) % Plt Count 493 H (130-400) K/uL Neut # (Auto) 8.56 H (1.40-6.50) K/uL Lymph # (Auto) 0.75 L (1.2-3.4) K/uL Sweet Grass # (Auto) 1.89 H (0.11-0.59) K/uL ESR (0-30) mm/hr PT 33.9 H (9.0-12.0) Seconds INR 3.3 H (0.9-1.1) Chloride (98-107) mmol/L BUN (6-23) mg/dl Creatinine (0.6-1.2) mg/dl BUN/Creatinine Ratio (10-20) C-Reactive Protein (0-0.5) mg/dl Albumin (3.4-5.0) gm/dl Urine Appearance Cloudy A (Clear) Urine Protein 2+ H (Negative) Urine Ketones Trace H (Negative) Urine Blood 1+ H (Negative) Urine Nitrite Positive A (Negative) Urine Bilirubin 1+ H (Negative) Urine WBC (Auto) 5-10 H (0-5) /hpf Urine RBC (Auto) 5-10 H (0-4) /hpf U Hyaline Cast (Auto) 10-30 H (0-5) /lpf U Epithel Cells (Auto) >30 H (0-5) /lpf 01/03/23 01/03/23 Range/Units 06:28 06:28 WBC (4.8-10.8) K/ul RBC (4.20-5.40) M/uL Hgb (12.0-16.0) g/dl Hct (37.0-47.0) % MCV (80.0-100.0) fL MCH (25.0-34.0) pg RDW Std Deviation (36.4-46.3) fL RDW Coeff of Terrance (11.5-14.5) % Plt Count (130-400) K/uL Neut # (Auto) (1.40-6.50) K/uL Lymph # (Auto) (1.2-3.4) K/uL Sweet Grass # (Auto) (0.11-0.59) K/uL ESR 45 H (0-30) mm/hr PT (9.0-12.0) Seconds INR (0.9-1.1) Chloride 109 H (98-107) mmol/L BUN 24 H (6-23) mg/dl Creatinine 0.40 L (0.6-1.2) mg/dl BUN/Creatinine Ratio 60.0 H (10-20) C-Reactive Protein 13.78 H (0-0.5) mg/dl Albumin 3.1 L (3.4-5.0) gm/dl Urine Appearance (Clear) Urine Protein (Negative) Urine Ketones (Negative) Urine Blood (Negative) Urine Nitrite (Negative) Urine Bilirubin (Negative) Urine WBC (Auto) (0-5) /hpf Urine RBC (Auto) (0-4) /hpf U Hyaline Cast (Auto) (0-5) /lpf U Epithel Cells (Auto) (0-5) /lpf Diagnostic Findings CT head - Unremarkable
[2023-01-03] MEDS: METOPROLOL TARTRATE 1 MG/ML VIAL IV SCH ×2 (18:41→23:57)
[2023-01-03] MEDS: ERTAPENEM SODIUM 1,000 MG in SYRINGE 0 ML IV SCH (18:41)
[2023-01-03] MEDS: AZITHROMYCIN 500 MG in DEXTROSE 5% 250 ML IV SCH (20:08)
[2023-01-04] MEDS: dilTIAZem HCL 125 MG in DEXTROSE 5% 100 ML IV SCH ×2 (05:20→14:26)
[2023-01-04] MEDS: METOPROLOL TARTRATE 1 MG/ML VIAL IV SCH (06:05)
[2023-01-04 07:43] LABS: BUN Creatinine Ratio 61.8 (10-20); Calcium 8.3 mg/dl (8.6-10.3); Creatinine Clr Calc Pharmacy 96.6 ml/min; Est GFR (African American) 113.7 ml/min; Est GFR (Non-African American) 98.1 ml/min; Potassium 4.2 mmol/L (3.5-5.1)
[2023-01-04 07:45] LABS: Basophils # (auto) 0.03 K/uL (0-0.2); Basophils % (auto) 0.3 %; Eosinophils # (auto) 0.06 K/uL (0-0.50); Eosinophils % (auto) 0.6 %; Hematocrit (blood only) 32.3 % (37.0-47.0); Hemoglobin 10.6 g/dl (12.0-16.0); Immature Granulocytes # (auto) 0.04 K/uL (0.01-0.20); Immature Granulocytes % (auto) 0.4 %; Lymphocytes # (auto) 0.75 K/uL (1.2-3.4); Lymphocytes % (auto) 7.7 %; Mean Corpuscular Hemoglobin 33.3 pg (25.0-34.0); Mean Corpuscular Hgb Conc 32.8 g/dL (32.0-36.0); Mean Corpuscular Volume 101.6 fL (80.0-100.0); Mean Platelet Volume 10.3 fL (9.4-12.4); Monocytes # (auto) 1.56 K/uL (0.11-0.59); Monocytes % (auto) 16.1 %; Neutrophils # (auto) 7.25 K/uL (1.40-6.50); Neutrophils % (auto) 74.9 %; Platelet Count 555 K/uL (130-400); RDW Standard Deviation 63.7 fL (36.4-46.3); Red Blood Count 3.18 M/uL (4.20-5.40); White Blood Count 9.69 K/ul (4.8-10.8)
[2023-01-04 08:01] LABS: INR 3.8 (0.9-1.1); Prothrombin Time 38.7 Seconds (9.0-12.0)
[2023-01-04] MEDS: NYSTATIN SUSP 500,000 U/5 ML UDC PO SCH ×4 (08:04→19:58)
[2023-01-04] MEDS: FAMOTIDINE 20 MG in SYRINGE 3 ML IV SCH (08:04)
[2023-01-04] MEDS: ROSUVASTATIN CALCIUM 5 MG TAB PO SCH (08:04)
[2023-01-04] MEDS: PANTOprazole 40 MG in SYRINGE 0 ML IV SCH ×2 (08:04→19:58)
--- NOTE | 2023-01-04 09:16 | Hospitalist Progress Note ---
Date of Service January 04, 2023 Assessment & Plan (1) Delirium: Plan: Metabolic encephalopathy suspected secondary to infectious process, likely lung primary, improving CT Head without evidence of new CVA, known chronic lacunar/basilar infarct seen ESR and CRP elevated, procal detectable but not grossly severely elevated CBC reviewed, WBC count improved today from 17 to 9.7, Cont ertapenem/azithro for pneumonia Has been listed as permissive aspiration per Speech in the past, family member and patient confirms this and confirms advanced directive Trial meds/sips per Speech with reevaluation tomorrow, aspiration precautions Avoid sedatives Neurology does not feel patient has infectious neurologic process (2) Aspiration pneumonia: Plan: See above Continue ertapenem/azithromycin, monitor respiratory status, daily CBC NPO except sips and meds (3) Leukocytosis: Plan: Improved on today's CBC With dirty UA, however UCx <[address] with bibasilar infiltrates pneumonitis/PNA, history of permissive aspiration BCx NGTD Former surgical site R groin clean, nontender, no evidence of infection Less suspicious of meningitis/encephalitis given improvement with PNA tx Lyme negative Cont ertapenem (PCN allergy -anaphylaxis) and azithromycin, MRSA nares negative (4) Ischemia of left lower extremity: Plan: S/p Left Lower Extremity Arteriogram, Mechanical Thrombectomy Left Superficial Femoral Artery, Percutaneous Transluminal Angioplasty and Stenting of Left Superficial Femoral Artery - Dr Duncan Plavix + statin held 01/02 for difficulty with swallowing H/H stable R groin previous puncture site is clean, no cellulitis, no hematoma Legs are well perfused and pulses intact Appreciate vascular surgery follow up in outpatient setting Hypercoagulable state from COVID infection in November [address] Duran in Coumadin clinic follows patient; clopidogrel resistance assay pending given was on AC during this event, if positive will need Plavix transitioned to Brilinta (5) Atrial fibrillation: Plan: Chronic atrial fibrillation Remains on diltiazem gtt, rates suboptimal, added metoprolol tartrate 5mg IV q6h Suspect acute pain, her delirium, SIRS, dehydration, etc are contributing to the a.fib w/ RVR INR reviewed, 3.8 today, holding warfarin She is not symptomatic from the rapid rates, and she is not in CHF, defer on adding 3rd AV marian agent Supportive care for delirium (6) HTN (hypertension): Plan: Is on complex regimen of meds including clonidine TID, diltiazem 360mg daily, furosemide 20mg daily, metoprolol succinate 200mg daily BPs labile despite this intensive regimen, and now NPO, with labile/brittle HTN (BP normal at times despite receiving very little in the way of hypertensive in last 24 hours) Discontinue clonidine altogether for discharge, monitor for rebound HTN, can continue metoprolol/diltiazem, holding furosemide given no evidence of fluid overload and treating active infection (7) Acute pain of left lower extremity: Plan: 2nd to surgery, resolved (8) HLD (hyperlipidemia): Plan: Cont rosuvastatin (9) Ulcerative colitis: Plan: when able (10) GERD (gastroesophageal reflux disease): Plan: Continue pantoprazole (11) Candidiasis of mouth and esophagus: Plan: Cont nystatin swish and swallow (12) Pacemaker: Plan: Placed for SSS in the past (13) Dysphagia: Plan: Appreciate speech therapy consultation NPO except meds and sips today, see how she does Cont IV fluids (14) Neck pain: Plan: Hyperextended neck is improved today compared to days previous, denies neck pain 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 Denies any shortness of breath, endorses intermittent cough. Physical Exam Constitutional: + ill appearing; no acute distress Neck: neck extension present but not as bad as 2 days Respiratory: Lungs with bibasilar crackles, mild tachypnea, no wheezes Cardiovascular: HR irregularly irregular, mildly tachycardic, no peripheral edema DP and PT pulses Doppler-able on both lower extremities, both LE warm to the touch Gastrointestinal (Abdomen): normal bowel sounds, soft, nontender, no hepatosplenomegaly Musculoskeletal: no cyanosis or clubbing, extremities motor strength 5/5 Skin: no rashes, warm and dry Pressure dressings intact to bilateral heels, no evidence of ulceration or wound Neurologic: Alert and oriented to self and situation but with forgetfulness about certain details. Able to answer questions appropriately, though slowly and with some word finding. Able to follow commands, can repeat sentences, and answer questions Results & Data Results & Data Vital Signs (Past 12 Hours) Vital Signs Temp Pulse Pulse Resp BP BP Pulse Ox 01/04/23 07:52 109 H 01/04/23 07:42 36.3 C L 109 H 18 96/75 L 98 01/04/23 06:05 128 H 153/75 H 01/04/23 04:00 36.7 C 100 H 18 141/79 H 98 01/03/23 23:17 92 H 01/03/23 23:57 90 150/74 H 01/03/23 22:32 36.8 C 99 H 18 151/73 H 97 O2 Del Method O2 Flow Rate 01/04/23 07:52 01/04/23 07:42 Oxymask 1 01/04/23 06:05 01/04/23 04:00 Oxymask 1 01/03/23 23:17 01/03/23 23:57 01/03/23 22:32 Oxymask 2 PG Care Time/CCT Total # of Minutes Spent Total Time Spent with Patient: Total time spent is greater than 50% in coordination of care (as documented) at patient's floor/unit and/or counseling patient: Coding Level of Care Code 76241 SUB INP/OBS CARE 3/50MIN Diagnoses Delirium R41.0 Aspiration pneumonia J69.0 Leukocytosis D72.829 Ischemia of left lower extremity I99.8 Atrial fibrillation I48.91 HTN (hypertension) I10 Hypertension type: essential hypertension Acute pain of left lower extremity M79.605 HLD (hyperlipidemia) E78.5 Ulcerative colitis K51.90 GERD (gastroesophageal reflux disease) K21.9 Candidiasis of mouth and esophagus B37.81; B37.0 Pacemaker Z95.0 Dysphagia R13.10 Neck pain M54.2 (6) HTN (hypertension) Hypertension type: essential hypertension Qualified Code(s): I10 - Essential (primary) hypertension
[2023-01-04] MEDS: sulfaSALAzine 500 MG TABLET PO SCH ×2 (13:28→15:36)
[2023-01-04] MEDS: METOPROLOL SUCC 50MG EXT REL TAB PO SCH (13:28)
[2023-01-04] MEDS: ACETAMINOPHEN 500 MG TAB PO SCH ×2 (15:35→19:58)
[2023-01-04] MEDS: ERTAPENEM SODIUM 1,000 MG in SYRINGE 0 ML IV SCH (18:04)
[2023-01-04] MEDS ORDERED: dilTIAZem HCL 180 MG CAPCR PO ONE (19:45)
[2023-01-04] MEDS: FAMOTIDINE 20 MG TAB PO SCH (19:57)
[2023-01-04] MEDS: AZITHROMYCIN 500 MG in DEXTROSE 5% 250 ML IV SCH (20:02)
[2023-01-05 03:38] LABS: Adenovirus PCR Not Detected (NotDetected); Bordetella parapertussis PCR Not Detected (NotDetected); Bordetella pertussis PCR Not Detected (NotDetected); Chlamydia pneumoniae PCR Not Detected (NotDetected); Coronavirus 229E PCR Not Detected (NotDetected); Coronavirus CoV-2 (COVID19)PCR Not Detected (NotDetected); Coronavirus HKU1 PCR Not Detected (NotDetected); Coronavirus NL63 PCR Not Detected (NotDetected); Coronavirus OC43PCR Not Detected (NotDetected); Human Metapneumovirus PCR Not Detected (NotDetected); Influenza A PCR Not Detected (NotDetected); Influenza B PCR Not Detected (NotDetected); Mycoplasma pneumoniae PCR Not Detected (NotDetected); Parainfluenza Virus 1 PCR Not Detected (NotDetected); Parainfluenza Virus 2 PCR Not Detected (NotDetected); Parainfluenza Virus 3 PCR Not Detected (NotDetected); Parainfluenza Virus 4 PCR Not Detected (NotDetected); Respiratory Syncytial VirusPCR Not Detected (NotDetected); Rhinovirus/Enterovirus PCR Not Detected (NotDetected)
[2023-01-05 07:17] LABS: INR 4.3 (0.9-1.1); Prothrombin Time 43.4 Seconds (9.0-12.0)
[2023-01-05] MEDS: ACETAMINOPHEN 500 MG TAB PO SCH ×3 (08:40→20:59)
[2023-01-05] MEDS: CLOPIDOGREL BISULFATE 75 MG TAB PO SCH (08:40)
[2023-01-05] MEDS: dilTIAZem HCL 120 MG CAPCR PO SCH (08:40)
[2023-01-05] MEDS: PANTOprazole 40 MG in SYRINGE 0 ML IV SCH ×2 (08:41→20:57)
[2023-01-05] MEDS: ROSUVASTATIN CALCIUM 5 MG TAB PO SCH (08:41)
[2023-01-05] MEDS: NYSTATIN SUSP 500,000 U/5 ML UDC PO SCH ×4 (08:41→20:58)
[2023-01-05] MEDS: MERCAPTOPURINE 50 MG TAB PO SCH (08:42)
--- NOTE | 2023-01-05 09:37 | Hospitalist Progress Note ---
Date of Service January 05, 2023 Assessment & Plan (1) Delirium: Plan: Metabolic encephalopathy suspected secondary to infectious process, likely lung primary, improving CT Head without evidence of new CVA, known chronic lacunar/basilar infarct seen Admission ESR and CRP elevated, procal detectable but not grossly severely elevated Cont ertapenem/azithro for pneumonia, on day 6 of 7 Has been listed as permissive aspiration per Speech in the past, family member and patient confirms this and confirms advanced directive Trialing minced and moist diet with aspiration precautions Avoid sedatives PT and OT recommending SNF on discharge (2) Aspiration pneumonia: Plan: See above Continue ertapenem/azithromycin, monitor respiratory status, daily CBC Minced and moist diet today (3) Leukocytosis: Plan: Improved on recent CBC With dirty UA, however UCx <[address] with bibasilar infiltrates pneumonitis/PNA, history of permissive aspiration BCx NGTD Former surgical site R groin clean, nontender, no evidence of infection Less suspicious of meningitis/encephalitis given improvement with PNA tx Lyme negative Biofire negative Cont ertapenem (PCN allergy -anaphylaxis) and azithromycin, MRSA nares negative (4) Ischemia of left lower extremity: Plan: S/p Left Lower Extremity Arteriogram, Mechanical Thrombectomy Left Superficial Femoral Artery, Percutaneous Transluminal Angioplasty and Stenting of Left Superficial Femoral Artery - Dr Duncan Plavix + statin held 01/02 for difficulty with swallowing, resumed 8/10 H/H stable R groin previous puncture site is clean, no cellulitis, no hematoma Legs are well perfused and pulses intact Appreciate vascular surgery follow up in outpatient setting Hypercoagulable state from COVID infection in November [address] Duran in Coumadin clinic follows patient; clopidogrel resistance assay pending given was on AC during this event, if positive will need Plavix transitioned to Brilinta (5) Atrial fibrillation: Plan: Chronic atrial fibrillation HR trend in last 24 hours with more normal heart rates, continue home metoprolol succinate 200mg PO daily, diltiazem 360mg PO daily Suspect acute pain, her delirium, SIRS, dehydration, etc. contributed to her RVR INR reviewed, 4.3 today (probably due to Abx?), holding warfarin She is not symptomatic from the rapid rates, and she is not in CHF, defer on adding 3rd AV marian agent Supportive care for delirium (6) HTN (hypertension): Plan: Is typically on clonidine TID, diltiazem 360mg daily, furosemide 20mg daily, metoprolol succinate 200mg daily With noted labile/brittle HTN while on metoprolol/diltiazem, at times has normal BPs Discontinue clonidine altogether for discharge, monitor for rebound HTN, can continue metoprolol/diltiazem, holding furosemide given no evidence of fluid overload and treating active infection All for an element of mild hypertension in outpatient setting to decrease fall risks (7) Acute pain of left lower extremity: Plan: 2nd to surgery, resolved (8) HLD (hyperlipidemia): Plan: Cont rosuvastatin (9) Ulcerative colitis: Plan: Continue mercaptopurine/sulfasalazine (10) GERD (gastroesophageal reflux disease): Plan: Continue pantoprazole (11) Candidiasis of mouth and esophagus: Plan: Cont nystatin swish and swallow (12) Pacemaker: Plan: Placed for SSS in the past (13) Dysphagia: Plan: Appreciate speech therapy consultation Minced and moist diet (14) Neck pain: Plan: Hyperextended neck improved with pills for propping up head From severe DJD causing significant cervical lordosis, cervical spine CT without other acute or concerning abnormalities Plan Ongoing PT and OT, anticipate need for SNF rehab on discharge Admission and Anticipated Discharge Date Admission Date: December 26, 2022 Subjective Via patient without any acute events overnight. Today seems a bit more alert. With ongoing difficulty swallowing which is chronic, she has been listed as permissive aspiration in the past. Did a bit better with lunch today was able to take some soft foods, did prompt her to tilt her head forward for decreased aspiration risk which seemed to help a little bit. She denies any chest pain, shortness of breath, nausea, abdominal pain. Physical Exam Constitutional: well developed; no acute distress Neck: neck extension present, worse when pillows are not in place, but can straighten up some when asked Respiratory: Lungs with bibasilar crackles, no wheezes Cardiovascular: HR irregularly irregular, mildly tachycardic at times, no peripheral edema Gastrointestinal (Abdomen): normal bowel sounds, soft, nontender, no hepatosplenomegaly Skin: no rashes, warm and dry Neurologic: Alert and oriented to self and situation but with forgetfulness about certain details Able to answer questions appropriately, follow commands Results & Data Results & Data Vital Signs (Past 12 Hours) Vital Signs Temp Pulse Pulse Resp BP Pulse Ox O2 Del Method 01/05/23 07:08 36.8 C 105 H 18 107/73 99 Oxymask 01/05/23 03:30 36.5 C 88 16 121/63 97 Oxymask, Ambu-Bag 01/05/23 00:30 83 01/05/23 00:07 36.5 C 101 H 20 146/84 H 98 Nasal Cannula O2 Flow Rate 01/05/23 07:08 1 01/05/23 03:30 2 01/05/23 00:30 01/05/23 00:07 2 PG Care Time/CCT Total # of Minutes Spent Total Time Spent with Patient: Total time spent is greater than 50% in coordination of care (as documented) at patient's floor/unit and/or counseling patient: Coding Level of Care Code 27141 SUB INP/OBS CARE 2/35MIN Diagnoses Delirium R41.0 Aspiration pneumonia J69.0 Leukocytosis D72.829 Ischemia of left lower extremity I99.8 Atrial fibrillation I48.91 HTN (hypertension) I10 Hypertension type: essential hypertension Acute pain of left lower extremity M79.605 HLD (hyperlipidemia) E78.5 Ulcerative colitis K51.90 GERD (gastroesophageal reflux disease) K21.9 Candidiasis of mouth and esophagus B37.81; B37.0 Pacemaker Z95.0 Dysphagia R13.10 Neck pain M54.2 (6) HTN (hypertension) Hypertension type: essential hypertension Qualified Code(s): I10 - Essential (primary) hypertension
[2023-01-05] MEDS: sulfaSALAzine 500 MG TABLET PO SCH ×2 (11:29→16:26)
[2023-01-05] MEDS: METOPROLOL SUCC 50MG EXT REL TAB PO SCH (11:29)
[2023-01-05] MEDS: ERTAPENEM SODIUM 1,000 MG in SYRINGE 0 ML IV SCH (16:55)
[2023-01-05] MEDS: AZITHROMYCIN 500 MG in DEXTROSE 5% 250 ML IV SCH (20:58)
[2023-01-05] MEDS: FAMOTIDINE 20 MG TAB PO SCH (20:59)
[2023-01-06] MEDS: METOPROLOL TARTRATE 1 MG/ML VIAL IV PRN (02:21)
[2023-01-06 06:52] LABS: Basophils # (auto) 0.03 K/uL (0-0.2); Basophils % (auto) 0.3 %; Eosinophils # (auto) 0.06 K/uL (0-0.50); Eosinophils % (auto) 0.5 %; Hematocrit (blood only) 37.4 % (37.0-47.0); Hemoglobin 12.3 g/dl (12.0-16.0); Immature Granulocytes # (auto) 0.08 K/uL (0.01-0.20); Immature Granulocytes % (auto) 0.7 %; Lymphocytes # (auto) 0.99 K/uL (1.2-3.4); Lymphocytes % (auto) 8.5 %; Mean Corpuscular Hemoglobin 33.7 pg (25.0-34.0); Mean Corpuscular Hgb Conc 32.9 g/dL (32.0-36.0); Mean Corpuscular Volume 102.5 fL (80.0-100.0); Mean Platelet Volume 10.5 fL (9.4-12.4); Monocytes # (auto) 1.54 K/uL (0.11-0.59); Monocytes % (auto) 13.3 %; Neutrophils # (auto) 8.91 K/uL (1.40-6.50); Neutrophils % (auto) 76.7 %; Platelet Count 666 K/uL (130-400); RDW Coefficient of Variation 16.9 % (11.5-14.5); RDW Standard Deviation 63.5 fL (36.4-46.3); Red Blood Count 3.65 M/uL (4.20-5.40); White Blood Count 11.61 K/ul (4.8-10.8)
[2023-01-06 07:04] LABS: BUN Creatinine Ratio 46.7 (10-20); Calcium 8.6 mg/dl (8.6-10.3); Creatinine Clr Calc Pharmacy 72.6 ml/min; Est GFR (African American) 103.7 ml/min; Est GFR (Non-African American) 89.5 ml/min
[2023-01-06 07:22] LABS: Prothrombin Time 49.9 Seconds (9.0-12.0)
--- NOTE | 2023-01-06 07:57 | Oncology Consultation ---
Date of Consultation January 06, 2023 Assessment & Plan (1) Superficial femoral artery occlusion: (2) Chronic anticoagulation: (3) Peripheral arterial disease: (4) Atrial fibrillation: Plan Néstor female admitted for left lower extremity ischemia secondary to occlusion of left superficial femoral artery stents for which she is s/p mechanical thrombectomy. Also has atrial fibrillation for which she has been on long-term anticoagulation with Coumadin which was discontinued on 10/01/2022 due to delirium. Labs however continue to show supratherapeutic INR of 5 today. Per review of her chart, she has had previous episodes of supratherapeutic INR outpatient. -Suspect that supratherapeutic INR is multifactorial due to mild vitamin K deficiency from previous Coumadin administration, exposure to azithromycin which is a vitamin K antagonist and poor nutrition. Given her age, she would be at slightly higher risk of bleeding and so it would be reasonable to consider giving 1 dose of vitamin K 2.5 mg p.o. as long as vascular surgery does not think this would increase her risk of stent occlusion. If there is concern for recurrent stent occlusion, would recommend close monitoring and giving vitamin K if she develops any evidence of bleeding. She does not have thrombocytopenia to suggest DIC, however could check fibrinogen level to rule out DIC Thank you for this consult. Hematology will follow peripherally while patient is in the hospital. Please feel free to call if have any further questions History of Present Illness Reason for Consultation: Supratherapeutic INR despite Coumadin discontinuation on 01/01/2023 Attending Physician: Sherry Kohler, DO History of Present Illness Néstor 87-year-old female who presented to the ER at [facility] on 12/26/2022 with left lower extremity calf pain and numbness. She was found to have left superficial femoral artery stent occlusion for which she underwent left lower extremity arteriogram, mechanical thrombectomy, percutaneous transluminal angioplasty and stenting of left superficial femoral artery on 12/27/2022. Patient developed delirium last week for which she underwent work-up for infection including chest x-ray which revealed small left pleural effusion. CT chest on 01/02/2023 revealed mild patchy airspace consolidation favoring infectious/inflammatory pneumonitis. She was started on antibiotics with ertapenem/azithromycin. Prior to admission, she had been on chronic anticoagulation for atrial fibrillation with warfarin and per review of her chart, has had supratherapeutic INR in the past most recently in November,. Hematology was consulted for persistently elevated INR despite being off Coumadin for about 5 days, since 01/01/2023 due to poor oral intake secondary to delirium. Labs obtained today showed PT of 49.9, INR 5.0 and APTT of 46.3. During my evaluation of patient today, she denies any abnormal bleeding or bruising. Allergies Allergy/AdvReac Type Severity Reaction Status Date / Time Penicillins Allergy Severe THROAT Verified 10/13/22 11:18 SWELLS, PASSES OUT aspirin Allergy Intermediate WELTS Verified 10/13/22 11:18 AROUND EYES Alvan And Derivatives Allergy Mild Runny/stuffy Verified 10/13/22 11:18 nose grapefruit Allergy Mild Nasal Verified 01/02/23 09:37 Discharge lemon Allergy Mild Nasal Verified 01/02/23 09:37 Discharge sleetmute Allergy Mild Nasal Verified 01/02/23 09:37 Discharge orange Allergy Mild Nasal Verified 01/02/23 09:37 Discharge mayonnaise Allergy Unknown Unknown Verified 01/02/23 09:37 chicken derived AdvReac Intermediate DIARRHEA Verified 10/13/22 11:18 chocolate flavor AdvReac Intermediate DIARRHEA Verified 10/13/22 11:18 lactose AdvReac Intermediate GI upset Verified 10/13/22 11:18 grass pollen-perennial rye, AdvReac Mild RUNNY Verified 10/13/22 11:18 standar NOSE/SINUS ISSUES mushroom AdvReac Mild GI SYMPTOMS Verified 10/13/22 11:18 pollen extracts AdvReac Mild RUNNY Verified 10/13/22 11:18 NOSE/SINUS ISSUES soy AdvReac Mild GI SYMPTOMS Verified 10/13/22 11:18 Huuqtus-BOQ-QzU Reductase AdvReac Mild DID NOT Verified 10/13/22 11:18 Inhibitor WORK [Gnlumnz-Hio-Rug Reductase Inhibitor] lorazepam AdvReac Hallucinati Verified 10/13/22 11:18 ng Home Medications Medication Instructions Recorded Confirmed Type joan #1 ea 03/11/19 12/26/22 Rx cholecalciferol (vitamin D3) 50 2,000 unit PO DAILY@1200 07/05/20 12/26/22 History mcg (2,000 unit) capsule (Vitamin D3) multivitamin with minerals-folic 1 tab PO DAILY@1200 07/05/20 12/26/22 History acid 200 mcg chewable tablet (Adult One Daily Gummies) cyclosporine 0.05 % eye drops in a 1 drp OPB Q12H 11/23/20 12/26/22 History dropperette (Restasis) loratadine 10 mg tablet (Claritin) 10 mg PO HS PRN Allergy Symptoms 11/23/20 12/26/22 History denosumab 60 mg/mL subcutaneous 60 mg subcut .COMPLEX 02/25/21 12/26/22 History syringe (Prolia) calcium carb,cit ER 600 mg-vit D3 1 tab PO BID 04/07/21 12/26/22 History 12.5 mcg (500 unit) tablet,ext.rel (Citracal-D3 Slow Release) vitamins A,C,Z-xnoo-jnhxei 2,148 1 tab PO BID 04/07/21 12/26/22 History mcg-113 mg-45 mg-17.4 mg tablet (PreserVision AREDS) doxycycline hyclate 100 mg capsule 100 mg PO ONCE PRN dental work #10 05/04/21 12/26/22 Rx caps acetaminophen 325 mg tablet 650 mg PO Q4H PRN pain 07/19/21 12/26/22 History mercaptopurine 50 mg tablet See Rx Instructions .Route 01/04/22 12/26/22 Rx .COMPLEX #135 tabs furosemide 20 mg tablet (Lasix) 20 mg PO DAILY #90 tabs 03/29/22 12/26/22 Rx famotidine 20 mg tablet 20 mg PO HS #90 tabs 04/05/22 12/26/22 Rx metoprolol succinate 100 mg 200 mg PO DAILY@1200 #180 tabs 04/05/22 12/26/22 Rx tablet,extended release 24 hr clonidine HCl 0.1 mg tablet 0.1 mg PO TID #270 tabs 04/26/22 12/26/22 Rx warfarin 3 mg tablet See Rx Instructions PO UD #140 tabs 07/18/22 12/26/22 Rx clopidogrel 75 mg tablet (Plavix) 75 mg PO DAILY #90 tabs 08/23/22 12/26/22 Rx rosuvastatin 5 mg tablet 5 mg PO DAILY #90 tabs 08/23/22 12/26/22 Rx diltiazem HCl 360 mg 360 mg PO DAILY #90 caps 10/02/22 12/26/22 Rx capsule,extended release 24 hr (Cardizem CD) pantoprazole 40 mg tablet,delayed 40 mg PO BIDM 12/26/22 12/26/22 History release pantoprazole 40 mg tablet,delayed 40 mg PO BIDM 12/26/22 12/26/22 History release potassium chloride 10 mEq 10 meq PO QDB 12/26/22 12/26/22 History capsule,extended release sulfasalazine 500 mg tablet 1,000 mg PO BIDM 12/26/22 12/26/22 History trazodone 50 mg tablet 25 mg PO HS 12/26/22 12/26/22 History Patient History Medical History (Updated 01/06/23 @ 07:58 by Sherry Kohler, ) Acute pancreatitis Aortic stenosis Atrial fibrillation on warfarin/plavix Breast cancer (08/27/15) "Abnormal right breast mammogram 08/01/2015 Status post biopsy 08/27/2015 10:00 lesion invasive ductal carcinoma, grade 1 Estrogen receptor positive, progesterone receptor negative, HER-2/quique negative 11:00 lesion invasive lobular carcinoma, grade 1 Estrogen receptor positive, progesterone receptor positive, HER-2/quique negative Status post lumpectomy and sentinel lymph node biopsy 09/27/2015 Lobular and ductal carcinoma Stage pT1b pN1a M0 Radiation therapy stopped 01/26/2016 received 3780 cGy. Treatments stopped early due to admission for compression fracture and inability to tolerate being in the treatment position" On 02/21/16 15:06 Frances Hogan wrote "Abnormal right breast mammogram 08/01/2015 Status post biopsy 08/27/2015 10:00 lesion invasive ductal carcinoma, grade 1 Estrogen receptor positive, progesterone receptor negative, HER-2/quique negative 11:00 lesion invasive lobular carcinoma, grade 1 Estrogen receptor positive, progesterone receptor positive, HER-2/quique negative Status post lumpectomy and sentinel lymph node biopsy 09/27/2015 Lobular and ductal carcinoma Stage pT1b pN1a M0" On 02/21/16 15:06 Frances Hogan wrote "Abnormal right breast mammogram 08/01/2015 Status post biopsy 08/27/2015 10:00 lesion invasive ductal carcinoma, grade 1 Estrogen receptor positive, progesterone receptor negative, HER-2/quique negative 11:00 lesion invasive lobular carcinoma, grade 1 Estrogen receptor positive, progesterone receptor positive, HER-2/quique negative Status post lumpectomy and sentinel lymph node biopsy 09/27/2015 Lobular and ductal carcinoma Stage pT1b pN1a M0 Status post radiation therapy, treatment stopped 01/26/2016 received 3780 cGy " On 10/14/15 13:28 Frances Hogan wrote "Abnormal right breast mammogram 08/01/2015 Status post biopsy 08/27/2015 10:00 lesion invasive ductal carcinoma, grade 1 Estrogen receptor positive, progesterone receptor negative, HER-2/quique negative 11:00 lesion invasive lobular carcinoma, grade 1 Estrogen receptor positive, progesterone receptor positive, HER-2/quique negative Status post lumpectomy and sentinel lymph node biopsy 09/27/2015 Lobular and ductal carcinoma Stage pT1b pN1a M0 " Breast cancer RT BREAST (SX AND RADIATION) CHF (congestive heart failure) Compression fracture of lumbar vertebra CVA (cerebrovascular accident) Duodenal obstruction Elevated INR Facial basal cell cancer NOSE Gastric outlet obstruction Gastric ulcer GERD (gastroesophageal reflux disease) HLD (hyperlipidemia) HTN (hypertension) Hypertensive urgency Incarcerated paraesophageal hernia Intermittent small bowel obstruction Left sided abdominal pain Lower extremity pain, left On anticoagulant therapy warfarin/plavix daily Osteoarthritis 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" (FOLLOWED BY [facility]) Pancreatitis Paraesophageal hiatal hernia Sarcoidosis DX 1966 (LYMPH NODES AND LUNGS) Small bowel obstruction SSS (sick sinus syndrome) (02/18/14) Stroke OVER 20 YEARS AGO (NO CURRENT PROBLEMS) Ulcerative colitis Ulcerative colitis "REMISSION" Unintentional weight loss per pt reason for colonoscopy Vomiting Surgical History H/O total hysterectomy UTERINE MASS REMOVED (BENIGN) History of appendectomy History of cataract surgery History of colonoscopy History of esophagogastroduodenoscopy (EGD) recently had 03/2019 @ [facility] per pt they found 2 ulcers-1 in esophagus and 1 in stomach History of herniorrhaphy History of kyphoplasty History of tonsillectomy and adenoidectomy History of tooth extraction Hx of lumpectomy RT Family History Brother Coronary heart disease Mother Coronary heart disease Benign essential HTN Myocardial infarction Stroke Other PVD (peripheral vascular disease) Denies family history of Ovarian cancer Prostate cancer Breast cancer Lung cancer Colorectal cancer Social History Smoking Status: Never smoker Second Hand Exposure: No; Do You Dip or Chew Tobacco: No; Hx Alcohol Use: No Hx Substance Use: No Preferred Language: Pashto Communication Ability: Effective Visual Impairment: Limited Hearing Ability: Normal Pharmaceutical Scientist Required: No Beliefs That Will Affect Care: None marital status: Single Current Living Situation: Other Current Living Situation Comment: [place] - independent living current occupational status: retired How many Children do You have: 1 Feels Safe at Home: Yes Childhood Exposure to Second-Hand Smoke: No caffeine: Yes (drinks soda ) Dental Care, Regularly: Yes Physical Activity Frequency: Daily Physical Activity Frequency Comment: walks daily Seatbelt Use: always Sunscreen Use: No Assistive Devices: Cane, Walker and Other Results & Data Vital Signs (Past 12 Hours) Vital Signs Temp Pulse Pulse Pulse Resp BP BP 01/05/23 23:45 01/05/23 22:50 93 H 01/06/23 03:58 37.1 C 86 19 145/85 H 01/06/23 02:48 72 137/94 01/06/23 02:21 120 H 116/68 01/06/23 02:19 120 H 01/05/23 23:41 36.5 C 95 H 21 108/71 Pulse Ox O2 Del Method 01/05/23 23:45 Room Air 01/05/23 22:50 01/06/23 03:58 94 Room Air 01/06/23 02:48 01/06/23 02:21 01/06/23 02:19 01/05/23 23:41 95 Room Air
--- NOTE | 2023-01-06 08:05 | Hospitalist Progress Note ---
Date of Service January 06, 2023 Assessment & Plan (1) Delirium: Plan: Metabolic encephalopathy suspected secondary to infectious process, likely lung primary, improving CT Head without evidence of new CVA, known chronic lacunar/basilar infarct seen Admission ESR and CRP elevated, procal detectable but not grossly severely elevated Continue azithro for pneumonia, completes ertapenem today Has been listed as permissive aspiration per Speech in the past, family member and patient confirms this and confirms advanced directive Trial minced and moist diet with aspiration precautions going ok, not having the best intake, nutrition involved Avoid sedatives PT and OT recommending SNF on discharge, plan for [facility] on discharge, awaiting bed availability (2) Aspiration pneumonia: Plan: See above Complete azithromycin, monitor respiratory status, daily CBC Minced and moist diet, permissive aspiration Goals of care may be warranted (3) Leukocytosis: Plan: Improved on recent CBC With dirty UA, however UCx <[address] with bibasilar infiltrates pneumonitis/PNA, history of permissive aspiration BCx NGTD Former surgical site R groin clean, nontender, no evidence of infection Less suspicious of meningitis/encephalitis given improvement with PNA tx Lyme negative Biofire negative Cont azithromycin, complete ertapenem today, MRSA nares negative (4) Elevated INR: Plan: INR increasing despite not receiving warfarin since 01/01/23 INR 5.0 today, multifactorial likely with azithromycin use, chronic Coumadin use (last dose 01/01), and poor nutrition Hematology consulted and appreciate recommendations, did add fibrinogen level however less likely DIC as patient is not septic and doing fairly well Vitamin K 2.5mg PO x1 given to patient as with her advanced age she is at increased risk of bleeding Repeat INR tomorrow (5) Ischemia of left lower extremity: Plan: S/p Left Lower Extremity Arteriogram, Mechanical Thrombectomy Left Superficial Femoral Artery, Percutaneous Transluminal Angioplasty and Stenting of Left Superficial Femoral Artery - Dr Duncan Plavix + statin held 01/02 for difficulty with swallowing, resumed 8/10 H/H stable R groin previous puncture site is clean, no cellulitis, no hematoma Legs are well perfused and pulses intact Appreciate vascular surgery follow up in outpatient setting Hypercoagulable state from COVID infection in November [address] Duran in Coumadin clinic follows patient; clopidogrel resistance assay pending given was on AC during this event, if positive will need Plavix transitioned to Brilinta (6) Atrial fibrillation: Plan: Chronic atrial fibrillation HR trend in last 24 hours is 100-120bpm, continue home metoprolol succinate 200mg PO daily, diltiazem 360mg PO daily Suspect acute pain, her delirium, SIRS, dehydration, etc. contributed to her RVR INR reviewed, 5.0 today, holding warfarin She is not symptomatic from the rapid rates, and she is not in CHF, defer on adding 3rd AV marian agent at this time Supportive care for delirium (7) HTN (hypertension): Plan: Is typically on clonidine TID, diltiazem 360mg daily, furosemide 20mg daily, metoprolol succinate 200mg daily With noted labile/brittle HTN while on metoprolol/diltiazem, at times has normal BPs Discontinue clonidine altogether for discharge, monitor for rebound HTN, can continue metoprolol/diltiazem, holding furosemide given no evidence of fluid overload and treating active infection All for an element of mild hypertension in outpatient setting to decrease fall risks (8) HLD (hyperlipidemia): Plan: Cont rosuvastatin (9) Ulcerative colitis: Plan: Continue mercaptopurine/sulfasalazine (10) GERD (gastroesophageal reflux disease): Plan: Continue pantoprazole (11) Candidiasis of mouth and esophagus: Plan: Cont nystatin swish and swallow (12) Dysphagia: Plan: Appreciate speech therapy consultation Minced and moist diet (13) Neck pain: Plan: Hyperextended neck improved with pills for propping up head From severe DJD causing significant cervical lordosis, cervical spine CT without other acute or concerning abnormalities Plan Ongoing PT and OT, anticipate need for SNF rehab on discharge Admission and Anticipated Discharge Date Admission Date: December 26, 2022 Subjective No overnight events. No chest pain, denies SOB, no abdominal pain. Physical Exam Constitutional: well developed; no acute distress Neck: neck extension improved today Respiratory: Lungs with bibasilar crackles, no wheezes Cardiovascular: HR irregularly irregular, mildly tachycardic at times, no peripheral edema Gastrointestinal (Abdomen): normal bowel sounds, soft, nontender, no hepatosplenomegaly Skin: no rashes, warm and dry Neurologic: Alert and oriented x3 Results & Data Results & Data Vital Signs (Past 12 Hours) Vital Signs Temp Pulse Pulse Pulse Resp BP BP 01/05/23 23:45 01/05/23 22:50 93 H 01/06/23 03:58 37.1 C 86 19 145/85 H 01/06/23 02:48 72 137/94 01/06/23 02:21 120 H 116/68 01/06/23 02:19 120 H 01/05/23 23:41 36.5 C 95 H 21 108/71 Pulse Ox O2 Del Method 01/05/23 23:45 Room Air 01/05/23 22:50 01/06/23 03:58 94 Room Air 01/06/23 02:48 01/06/23 02:21 01/06/23 02:19 01/05/23 23:41 95 Room Air PG Care Time/CCT Total # of Minutes Spent Total Time Spent with Patient: Total time spent is greater than 50% in coordination of care (as documented) at patient's floor/unit and/or counseling patient: Coding Level of Care Code 80823 SUB INP/OBS CARE 3/50MIN Diagnoses Delirium R41.0 Aspiration pneumonia J69.0 Leukocytosis D72.829 Elevated INR R79.1 Ischemia of left lower extremity I99.8 Atrial fibrillation I48.91 HTN (hypertension) I10 Hypertension type: essential hypertension HLD (hyperlipidemia) E78.5 Ulcerative colitis K51.90 GERD (gastroesophageal reflux disease) K21.9 Candidiasis of mouth and esophagus B37.81; B37.0 Dysphagia R13.10 Neck pain M54.2 (7) HTN (hypertension) Hypertension type: essential hypertension Qualified Code(s): I10 - Essential (primary) hypertension
[2023-01-06] MEDS: ROSUVASTATIN CALCIUM 5 MG TAB PO SCH (08:08)
[2023-01-06] MEDS: CLOPIDOGREL BISULFATE 75 MG TAB PO SCH (08:08)
[2023-01-06] MEDS: NYSTATIN SUSP 500,000 U/5 ML UDC PO SCH ×4 (08:08→19:38)
[2023-01-06] MEDS: PANTOprazole 40 MG in SYRINGE 0 ML IV SCH ×2 (08:08→19:38)
[2023-01-06] MEDS: ACETAMINOPHEN 500 MG TAB PO SCH ×3 (08:08→19:38)
[2023-01-06] MEDS: dilTIAZem HCL 120 MG CAPCR PO SCH (08:08)
[2023-01-06] MEDS: MERCAPTOPURINE 50 MG TAB PO SCH (08:10)
[2023-01-06 08:11] LABS: Albumin Level 3.2 gm/dl (3.4-5.0); Bilirubin Direct 0.2 mg/dl (0-0.2); Bilirubin,Total 0.7 mg/dl (0.2-1.0); Total Protein 6.5 gm/dl (6.0-8.3)
[2023-01-06 08:42] LABS: Partial Thromboplastin Ratio 1.6
[2023-01-06 08:47] LABS: Partial Thromboplastin Time 46.3 Seconds (21.0-31.0)
[2023-01-06] MEDS ORDERED: PHYTONADIONE 5 MG TAB PO STA (10:17)
[2023-01-06] MEDS: sulfaSALAzine 500 MG TABLET PO SCH ×2 (11:41→16:54)
[2023-01-06] MEDS: METOPROLOL SUCC 50MG EXT REL TAB PO SCH (11:42)
[2023-01-06 15:23] LABS: Fibrinogen 577 mg/dl (184-400)
[2023-01-06] MEDS: ERTAPENEM SODIUM 1,000 MG in SYRINGE 0 ML IV SCH (16:54)
[2023-01-06] MEDS: AZITHROMYCIN 500 MG in DEXTROSE 5% 250 ML IV SCH (19:38)
[2023-01-06] MEDS: FAMOTIDINE 20 MG TAB PO SCH (19:38)
[2023-01-06] MEDS: MELATONIN 3 MG TAB PO PRN (19:45)
[2023-01-07 06:11] LABS: INR 1.7 (0.9-1.1); Prothrombin Time 17.7 Seconds (9.0-12.0)
[2023-01-07] MEDS: MERCAPTOPURINE 50 MG TAB PO SCH (08:30)
[2023-01-07] MEDS: CLOPIDOGREL BISULFATE 75 MG TAB PO SCH (08:30)
[2023-01-07] MEDS: PANTOprazole 40 MG in SYRINGE 0 ML IV SCH ×2 (08:30→21:03)
[2023-01-07] MEDS: dilTIAZem HCL 120 MG CAPCR PO SCH (08:30)
[2023-01-07] MEDS: ROSUVASTATIN CALCIUM 5 MG TAB PO SCH (08:30)
[2023-01-07] MEDS: NYSTATIN SUSP 500,000 U/5 ML UDC PO SCH ×4 (08:30→21:03)
--- NOTE | 2023-01-07 09:04 | Hospitalist Progress Note ---
Date of Service January 07, 2023 Assessment & Plan (1) Delirium: Plan: Metabolic encephalopathy suspected secondary to infectious process, likely lung primary, improving CT Head without evidence of new CVA, known chronic lacunar/basilar infarct seen Admission ESR and CRP elevated, procal detectable but not grossly severely elevated Continue azithro for pneumonia through 01/09, completes ertapenem today Has been listed as permissive aspiration per Speech in the past, family member and patient confirms this and confirms advanced directive Minced and moist diet with aspiration precautions going ok, not having the best intake, nutrition involved, recommending Palliative Care PT and OT recommending SNF on discharge, plan for [facility], awaiting bed availability (2) Aspiration pneumonia: Plan: See above Complete azithromycin, monitor respiratory status, daily CBC Minced and moist diet, permissive aspiration Goals of care warranted given intake and nutritional difficulties, ongoing debility, Palliative Care consulted to see tomorrow (3) Leukocytosis: Plan: Improved on recent CBC With dirty UA, however UCx <[address] with bibasilar infiltrates pneumonitis/PNA, history of permissive aspiration BCx NGTD Former surgical site R groin clean, nontender, no evidence of infection Less suspicious of meningitis/encephalitis given improvement with PNA tx Lyme negative Biofire negative Cont azithromycin, complete ertapenem today, MRSA nares negative (4) Elevated INR: Plan: INR increasing despite not receiving warfarin since 01/01/23 INR previously climbed despite holding warfarin, multifactorial likely with azithromycin use and poor nutrition Hematology consulted and appreciate recommendations, did add fibrinogen level which is elevated, however less likely DIC as patient is not septic and doing fairly well, no evidence of bleeding Vitamin K 2.5mg PO x1 given to patient as with her advanced age she is at increased risk of bleeding, with repeat INR 1.7 Goals of care as above with difficulty of bleeding vs. clotting and warfarin use, for now after discussion with patient and POA Duy will resume warfarin until evaluated by Palliative Care (5) Ischemia of left lower extremity: Plan: S/p Left Lower Extremity Arteriogram, Mechanical Thrombectomy Left Superficial Femoral Artery, Percutaneous Transluminal Angioplasty and Stenting of Left Superficial Femoral Artery - Dr Duncan Plavix + statin held 01/02 for difficulty with swallowing, resumed 8/10 H/H stable R groin previous puncture site is clean, no cellulitis, no hematoma Legs are well perfused and pulses intact Appreciate vascular surgery follow up in outpatient setting Hypercoagulable state from COVID infection in November [address] Duran in Coumadin clinic follows patient; clopidogrel resistance assay pending since 01/02/23 given she was on AC during this clotting event, if positive will need Plavix transitioned to Brilinta (6) Atrial fibrillation: Plan: Chronic atrial fibrillation HR trend in last 24 hours is 100-120bpm, continue home metoprolol succinate 200mg PO daily, diltiazem 360mg PO daily Suspect acute pain, her delirium, SIRS, dehydration, etc. contributed to her RVR INR reviewed, 1.7 today, resume warfarin She is not symptomatic from the rapid rates, and she is not in CHF, defer on adding 3rd AV marian agent at this time; Lopressor IV prn HR >120 sustained Supportive care for delirium (7) HTN (hypertension): Plan: Is typically on clonidine TID, diltiazem 360mg daily, furosemide 20mg daily, metoprolol succinate 200mg daily With noted labile/brittle HTN while on metoprolol/diltiazem, at times has normal BPs Discontinued clonidine altogether for discharge, continue metoprolol/diltiazem, holding furosemide given no evidence of fluid overload or weight gain Allow for an element of mild hypertension in outpatient setting to decrease fall risks (8) HLD (hyperlipidemia): Plan: Cont rosuvastatin (9) Ulcerative colitis: Plan: Continue mercaptopurine/sulfasalazine (10) GERD (gastroesophageal reflux disease): Plan: Continue pantoprazole (11) Candidiasis of mouth and esophagus: Plan: Cont nystatin swish and spit (12) Dysphagia: Plan: Appreciate speech therapy consultation Minced and moist diet (13) Neck pain: Plan: Hyperextended neck improved with pillows for propping up head From severe DJD causing significant cervical lordosis, cervical spine CT without other acute or concerning abnormalities Plan Ongoing PT and OT, anticipate need for SNF rehab on discharge, Palliative Care consulted Admission and Anticipated Discharge Date Admission Date: December 26, 2022 Subjective No acute events overnight. HR in low 100s at times, asymptomatic. In talking with patient's POA Duy, she is more alert today but not back up to 100%. She reports no complaints, feels "very full" after breakfast this morning, feels like she ate too much. Physical Exam Constitutional: well developed; no acute distress Neck: neck extension improved today Respiratory: Lungs CTA bilaterally Cardiovascular: HR irregularly irregular, mildly tachycardic at times, no peripheral edema Gastrointestinal (Abdomen): normal bowel sounds, soft, nontender, no hepatosplenomegaly Skin: no rashes, warm and dry Neurologic: Alert and oriented x3 Results & Data Results & Data Vital Signs (Past 12 Hours) Vital Signs Temp Pulse Pulse Pulse Resp BP Pulse Ox 01/07/23 07:30 111 H 01/07/23 07:30 01/07/23 08:25 110 H 106/68 01/07/23 07:23 36.4 C L 103 H 17 90/61 L 95 01/07/23 03:45 36.5 C 118 H 16 137/80 93 01/06/23 23:41 90 01/06/23 22:54 36.6 C 101 H 16 124/74 95 O2 Del Method 01/07/23 07:30 01/07/23 07:30 Room Air 01/07/23 08:25 01/07/23 07:23 Room Air 01/07/23 03:45 Room Air 01/06/23 23:41 01/06/23 22:54 Room Air PG Care Time/CCT Total # of Minutes Spent Total Time Spent with Patient: Total time spent is greater than 50% in coordination of care (as documented) at patient's floor/unit and/or counseling patient: Coding Level of Care Code 36042 SUB INP/OBS CARE 2/35MIN Diagnoses Delirium R41.0 Aspiration pneumonia J69.0 Leukocytosis D72.829 Elevated INR R79.1 Ischemia of left lower extremity I99.8 Atrial fibrillation I48.91 HTN (hypertension) I10 Hypertension type: essential hypertension HLD (hyperlipidemia) E78.5 Ulcerative colitis K51.90 GERD (gastroesophageal reflux disease) K21.9 Candidiasis of mouth and esophagus B37.81; B37.0 Dysphagia R13.10 Neck pain M54.2 (7) HTN (hypertension) Hypertension type: essential hypertension Qualified Code(s): I10 - Essential (primary) hypertension
[2023-01-07] MEDS: METOPROLOL TARTRATE 1 MG/ML VIAL IV PRN (09:06)
[2023-01-07] MEDS: ACETAMINOPHEN 500 MG TAB PO SCH ×3 (09:24→21:03)
[2023-01-07] MEDS: METOPROLOL SUCC 50MG EXT REL TAB PO SCH (11:37)
[2023-01-07] MEDS: sulfaSALAzine 500 MG TABLET PO SCH ×2 (11:37→17:06)
[2023-01-07] MEDS ORDERED: SODIUM CHLORIDE 0.9% 1000ML 500 ML IV ONE (15:02)
[2023-01-07] MEDS: WARFARIN SOD 3 MG TAB PO SCH (17:05)
[2023-01-07] MEDS: FAMOTIDINE 20 MG TAB PO SCH (21:03)
[2023-01-07] MEDS: AZITHROMYCIN 500 MG in DEXTROSE 5% 250 ML IV SCH (21:03)
[2023-01-07] MEDS: MELATONIN 3 MG TAB PO PRN (23:50)
[2023-01-08 07:21] LABS: BUN Creatinine Ratio 47.8 (10-20); Calcium 8.2 mg/dl (8.6-10.3); Creatinine Clr Calc Pharmacy 72.2 ml/min; Est GFR (African American) 102.9 ml/min; Est GFR (Non-African American) 88.8 ml/min; INR 1.1 (0.9-1.1); Potassium 3.8 mmol/L (3.5-5.1); Prothrombin Time 12.2 Seconds (9.0-12.0)
--- NOTE | 2023-01-08 07:25 | Hospitalist Progress Note ---
Date of Service January 08, 2023 Assessment & Plan (1) Delirium: Plan: Metabolic encephalopathy suspected secondary to infectious process, likely lung primary, resolved CT Head without evidence of new CVA, known chronic lacunar/basilar infarct seen Admission ESR and CRP elevated, procal detectable but not grossly severely elevated Continue azithro for pneumonia through 01/09, completed ertapenem course Has been listed as permissive aspiration per Speech in the past, family member and patient confirms this and confirms advanced directive Minced and moist diet with aspiration precautions going ok, not having the best intake, nutrition involved PT and OT recommending SNF on discharge, plan for [facility], awaiting bed availability Palliative Care consulted, patient at this time desires all interventions to get stronger and return to relative independence (2) Aspiration pneumonia: Plan: See above Complete azithromycin, monitor respiratory status, daily CBC Minced and moist diet, permissive aspiration Goals of care warranted given intake and nutritional difficulties, ongoing debility, will work toward prioritizing nutritional status (3) Leukocytosis: Plan: Improved on recent CBC With dirty UA, however UCx <[address] with bibasilar infiltrates pneumonitis/PNA, history of permissive aspiration BCx NGTD Former surgical site R groin clean, nontender, no evidence of infection Less suspicious of meningitis/encephalitis given improvement with PNA tx Lyme negative Biofire negative Cont azithromycin, completed ertapenem, MRSA nares negative (4) Elevated INR: Plan: INR originally increased despite not receiving warfarin since 01/01/23, multifactorial likely with azithromycin use and poor nutrition Hematology consulted and appreciate recommendations, did add fibrinogen level which is elevated, however less likely DIC as patient is not septic and doing fairly well, no evidence of bleeding Vitamin K 2.5mg PO x1 given to patient as with her advanced age she is at increased risk of bleeding, with repeat INR 1.0, continue warfarin and bridge with Lovenox until INR therapeutic Goals of care discussed difficulty of bleeding vs. clotting and warfarin use, for now after discussion with patient and POA Duy will continue warfarin as patient's concern of stroke outweighs her concern about having bleeding Daily INR (5) Ischemia of left lower extremity: Plan: S/p Left Lower Extremity Arteriogram, Mechanical Thrombectomy Left Superficial Femoral Artery, Percutaneous Transluminal Angioplasty and Stenting of Left Superficial Femoral Artery - Dr Duncan Plavix + statin held 01/02 for difficulty with swallowing, resumed 8/10 H/H stable R groin previous puncture site is clean, no cellulitis, no hematoma Legs are well perfused and pulses intact Appreciate vascular surgery follow up in outpatient setting Hypercoagulable state from COVID infection in November [address] Duran in Coumadin clinic follows patient; clopidogrel resistance assay pending since 01/02/23 given she was on AC during this clotting event, if positive will need Plavix transitioned to Brilinta (6) Atrial fibrillation: Plan: Chronic atrial fibrillation HR trend in last 24 hours is 100-120bpm, continue home metoprolol succinate 200mg PO daily, diltiazem 360mg PO daily Suspect acute pain, her delirium, SIRS, dehydration, etc. contributed to her RVR INR reviewed, 1.0 today, continue warfarin, may need dose adjustment She is not symptomatic from the rapid rates, and she is not in CHF, defer on adding 3rd AV marian agent at this time; Lopressor IV prn HR >120 sustained Supportive care for delirium (7) HTN (hypertension): Plan: Is typically on clonidine TID, diltiazem 360mg daily, furosemide 20mg daily, metoprolol succinate 200mg daily With noted labile/brittle HTN while on metoprolol/diltiazem, at times has normal BPs Discontinued clonidine altogether for discharge, continue metoprolol/diltiazem, holding furosemide given no evidence of fluid overload or weight gain, last Echo no CHF, and BP normal Allow for an element of mild hypertension in outpatient setting to decrease fall risks (8) HLD (hyperlipidemia): Plan: Cont rosuvastatin (9) Ulcerative colitis: Plan: Continue mercaptopurine/sulfasalazine (10) GERD (gastroesophageal reflux disease): Plan: Continue pantoprazole (11) Candidiasis of mouth and esophagus: Plan: Cont nystatin swish and spit (12) Dysphagia: Plan: Appreciate speech therapy consultation Minced and moist diet, permissive aspiration (13) Neck pain: Plan: Hyperextended neck improved with pillows for propping up head, and improved with resolution of altered mental status From severe DJD causing significant cervical lordosis, cervical spine CT without other acute or concerning abnormalities Plan Ongoing PT and OT, for SNF rehab on discharge, medically stable for discharge when bed available Admission and Anticipated Discharge Date Admission Date: December 26, 2022 Subjective No overnight events. Today had nonsustained asymptomatic run of VTach, back to AFib after that. Denies chest pain, SOB, abdominal pain. Physical Exam Constitutional: well developed; no acute distress Respiratory: Lungs CTA bilaterally Cardiovascular: HR irregularly irregular, mildly tachycardic at times, no peripheral edema Gastrointestinal (Abdomen): normal bowel sounds, soft, nontender, no hepatosplenomegaly Skin: no rashes, warm and dry Neurologic: Alert and oriented x3 Results & Data Results & Data Vital Signs (Past 12 Hours) Vital Signs Temp Pulse Resp BP BP Pulse Ox O2 Del Method 01/08/23 03:48 36.2 C L 106 H 16 129/84 97 Room Air 01/07/23 23:38 36.4 C L 88 16 118/78 97 Room Air 01/07/23 19:53 36.6 C 60 18 115/81 95 Room Air PG Care Time/CCT Total # of Minutes Spent Total Time Spent with Patient: Total time spent is greater than 50% in coordination of care (as documented) at patient's floor/unit and/or counseling patient: Coding Level of Care Code 08563 SUB INP/OBS CARE 3/50MIN Diagnoses Delirium R41.0 Aspiration pneumonia J69.0 Leukocytosis D72.829 Elevated INR R79.1 Ischemia of left lower extremity I99.8 Atrial fibrillation I48.91 HTN (hypertension) I10 Hypertension type: essential hypertension HLD (hyperlipidemia) E78.5 Ulcerative colitis K51.90 GERD (gastroesophageal reflux disease) K21.9 Candidiasis of mouth and esophagus B37.81; B37.0 Dysphagia R13.10 Neck pain M54.2 (7) HTN (hypertension) Hypertension type: essential hypertension Qualified Code(s): I10 - Essential (primary) hypertension
[2023-01-08 07:49] LABS: Basophils # (auto) 0.04 K/uL (0-0.2); Basophils % (auto) 0.4 %; Eosinophils # (auto) 0.08 K/uL (0-0.50); Eosinophils % (auto) 0.7 %; Hematocrit (blood only) 35.8 % (37.0-47.0); Hemoglobin 11.8 g/dl (12.0-16.0); Immature Granulocytes # (auto) 0.06 K/uL (0.01-0.20); Immature Granulocytes % (auto) 0.6 %; Lymphocytes # (auto) 1.29 K/uL (1.2-3.4); Mean Corpuscular Hemoglobin 33.4 pg (25.0-34.0); Mean Corpuscular Volume 101.4 fL (80.0-100.0); Mean Platelet Volume 10.6 fL (9.4-12.4); Monocytes # (auto) 1.33 K/uL (0.11-0.59); Monocytes % (auto) 12.4 %; Neutrophils # (auto) 7.91 K/uL (1.40-6.50); Neutrophils % (auto) 73.9 %; Platelet Count 538 K/uL (130-400); RDW Coefficient of Variation 16.7 % (11.5-14.5); RDW Standard Deviation 61.7 fL (36.4-46.3); Red Blood Count 3.53 M/uL (4.20-5.40); White Blood Count 10.71 K/ul (4.8-10.8)
[2023-01-08] MEDS: MERCAPTOPURINE 50 MG TAB PO SCH (08:47)
[2023-01-08] MEDS: dilTIAZem HCL 120 MG CAPCR PO SCH (08:47)
[2023-01-08] MEDS: ROSUVASTATIN CALCIUM 5 MG TAB PO SCH (08:47)
[2023-01-08] MEDS: CLOPIDOGREL BISULFATE 75 MG TAB PO SCH (08:47)
[2023-01-08] MEDS: NYSTATIN SUSP 500,000 U/5 ML UDC PO SCH ×4 (08:47→21:47)
[2023-01-08] MEDS: PANTOprazole 40 MG in SYRINGE 0 ML IV SCH ×2 (08:47→21:47)
[2023-01-08] MEDS: ACETAMINOPHEN 500 MG TAB PO SCH ×3 (08:47→21:48)
[2023-01-08] MEDS: sulfaSALAzine 500 MG TABLET PO SCH ×2 (12:05→16:36)
[2023-01-08] MEDS: METOPROLOL SUCC 50MG EXT REL TAB PO SCH (12:05)
--- NOTE | 2023-01-08 13:15 | Palliative Care Consultation ---
Date of Consultation January 08, 2023 Assessment & Plan (1) Dysphagia: Diet per recommendations from speech therapy Both she and her nephew, Duy Meehan, understand the potential risk of aspiration despite diet adjustment and careful feeding. That is a risk that they are willing to accept. Charline is clear that she would not want artificial feeding in the future if she were not able to eat safely and was recommended to be NPO. (2) Palliative care encounter: Charline has good insight into her medical challenges and tells me that she is a fighter. It is very important to her to be independent for as long as possible. She tells me that her goal is to live to be 89. When I asked her about the quality of her life living to be 89, she told me that "having my marbles" and being able to interact with friends and family were important to maintain quality of life. She very much enjoys bird watching but has not been able to do that with changes in her vision. She does enjoy listening to tapes and watching TV. She confirms that her nephew, Duy Meehan, is her medical POA and is confident that he would know what decisions to make on her behalf. I spoke with Duy who confirmed that they have talked about her health care goals and priorities and he is comfortable with making decisions for her. We discussed concerns about dysphagia and aspiration risk as well as risks with and without anticoagulation. He reiterates what Charline said about wanting to get therapy and get stronger to be more independent. He also notes that she has been afraid of strokes than bleeding and that she would prefer to take the risk of continuing anticoagulation. Discussed with Dr. Salinas History of Present Illness Reason for Consultation: goals Requesting Physician: Dr. Salinas Attending Physician: Sherry Kohler DO History of Present Illness 87 yo lady who was admitted with ischemia of her left lower extremity. She is s/p left Superficial Femoral Artery thrombectomy and stenting . She has history of hypocoagulable state with elevated INR off coumadin. She has metabolic encephalopathy with aspiration pneumonia and has been evaluated by speech therapy. Recommendations were made for minced and moist diet with aspiration precautions. She has had problems with aspiartion in the past and had VFSS in May of 2020 showing aspiration of thin liquids as well as dysphagia on VFSS in 2014. Her mental status has been variable but she is awake and alert today. She asked the nurse when Dr. Cohen was coming to see her and remembered my name when I arrived. She denies pain, dyspnea or nausea. She has had poor po intake with about 25% of her meals consumed per RN. She tells me that is because she doesn't like the food and that her appetite is better at home. She reports living in an apartment at the [facility] and that prior to admission she had been independent with basic ADLs. She had been walking to the dining room with her walker prior to admission. Allergies Allergy/AdvReac Type Severity Reaction Status Date / Time Penicillins Allergy Severe THROAT Verified 10/13/22 11:18 SWELLS, PASSES OUT aspirin Allergy Intermediate WELTS Verified 10/13/22 11:18 AROUND EYES [place] And Derivatives Allergy Mild Runny/stuffy Verified 10/13/22 11:18 nose grapefruit Allergy Mild Nasal Verified 01/02/23 09:37 Discharge lemon Allergy Mild Nasal Verified 01/02/23 09:37 Discharge [place] Allergy Mild Nasal Verified 01/02/23 09:37 Discharge orange Allergy Mild Nasal Verified 01/02/23 09:37 Discharge mayonnaise Allergy Unknown Unknown Verified 01/02/23 09:37 chicken derived AdvReac Intermediate DIARRHEA Verified 10/13/22 11:18 chocolate flavor AdvReac Intermediate DIARRHEA Verified 10/13/22 11:18 lactose AdvReac Intermediate GI upset Verified 10/13/22 11:18 grass pollen-perennial rye, AdvReac Mild RUNNY Verified 10/13/22 11:18 standar NOSE/SINUS ISSUES mushroom AdvReac Mild GI SYMPTOMS Verified 10/13/22 11:18 pollen extracts AdvReac Mild RUNNY Verified 10/13/22 11:18 NOSE/SINUS ISSUES soy AdvReac Mild GI SYMPTOMS Verified 10/13/22 11:18 Xlrqglk-HCF-OrR Reductase AdvReac Mild DID NOT Verified 10/13/22 11:18 Inhibitor WORK [Brnoldp-Xra-Ara Reductase Inhibitor] lorazepam AdvReac Hallucinati Verified 10/13/22 11:18 ng Home Medications Medication Instructions Recorded Confirmed Type walker #1 ea 03/11/19 12/26/22 Rx cholecalciferol (vitamin D3) 50 2,000 unit PO DAILY@1200 07/05/20 12/26/22 History mcg (2,000 unit) capsule (Vitamin D3) multivitamin with minerals-folic 1 tab PO DAILY@1200 07/05/20 12/26/22 History acid 200 mcg chewable tablet (Adult One Daily Gummies) cyclosporine 0.05 % eye drops in a 1 drp OPB Q12H 11/23/20 12/26/22 History dropperette (Restasis) loratadine 10 mg tablet (Claritin) 10 mg PO HS PRN Allergy Symptoms 11/23/20 12/26/22 History denosumab 60 mg/mL subcutaneous 60 mg subcut .COMPLEX 02/25/21 12/26/22 History syringe (Prolia) calcium carb,cit ER 600 mg-vit D3 1 tab PO BID 04/07/21 12/26/22 History 12.5 mcg (500 unit) tablet,ext.rel (Citracal-D3 Slow Release) vitamins A,C,X-dimz-ckeprz 2,148 1 tab PO BID 04/07/21 12/26/22 History mcg-113 mg-45 mg-17.4 mg tablet (PreserVision AREDS) doxycycline hyclate 100 mg capsule 100 mg PO ONCE PRN dental work #10 05/04/21 12/26/22 Rx caps acetaminophen 325 mg tablet 650 mg PO Q4H PRN pain 07/19/21 12/26/22 History mercaptopurine 50 mg tablet See Rx Instructions .Route 01/04/22 12/26/22 Rx .COMPLEX #135 tabs furosemide 20 mg tablet (Lasix) 20 mg PO DAILY #90 tabs 03/29/22 12/26/22 Rx famotidine 20 mg tablet 20 mg PO HS #90 tabs 04/05/22 12/26/22 Rx metoprolol succinate 100 mg 200 mg PO DAILY@1200 #180 tabs 04/05/22 12/26/22 Rx tablet,extended release 24 hr clonidine HCl 0.1 mg tablet 0.1 mg PO TID #270 tabs 04/26/22 12/26/22 Rx warfarin 3 mg tablet See Rx Instructions PO UD #140 tabs 07/18/22 12/26/22 Rx clopidogrel 75 mg tablet (Plavix) 75 mg PO DAILY #90 tabs 08/23/22 12/26/22 Rx rosuvastatin 5 mg tablet 5 mg PO DAILY #90 tabs 08/23/22 12/26/22 Rx diltiazem HCl 360 mg 360 mg PO DAILY #90 caps 10/02/22 12/26/22 Rx capsule,extended release 24 hr (Cardizem CD) pantoprazole 40 mg tablet,delayed 40 mg PO BIDM 12/26/22 12/26/22 History release pantoprazole 40 mg tablet,delayed 40 mg PO BIDM 12/26/22 12/26/22 History release potassium chloride 10 mEq 10 meq PO QDB 12/26/22 12/26/22 History capsule,extended release sulfasalazine 500 mg tablet 1,000 mg PO BIDM 12/26/22 12/26/22 History trazodone 50 mg tablet 25 mg PO HS 12/26/22 12/26/22 History Patient History Medical History Acute pancreatitis Aortic stenosis Atrial fibrillation on warfarin/plavix Breast cancer (08/27/15) "Abnormal right breast mammogram 08/01/2015 Status post biopsy 08/27/2015 10:00 lesion invasive ductal carcinoma, grade 1 Estrogen receptor positive, progesterone receptor negative, HER-2/quique negative 11:00 lesion invasive lobular carcinoma, grade 1 Estrogen receptor positive, progesterone receptor positive, HER-2/quique negative Status post lumpectomy and sentinel lymph node biopsy 09/27/2015 Lobular and ductal carcinoma Stage pT1b pN1a M0 Radiation therapy stopped 01/26/2016 received 3780 cGy. Treatments stopped early due to admission for compression fracture and inability to tolerate being in the treatment position" On 02/21/16 15:06 Frances Hogan wrote "Abnormal right breast mammogram 08/01/2015 Status post biopsy 08/27/2015 10:00 lesion invasive ductal carcinoma, grade 1 Estrogen receptor positive, progesterone receptor negative, HER-2/quique negative 11:00 lesion invasive lobular carcinoma, grade 1 Estrogen receptor positive, progesterone receptor positive, HER-2/quique negative Status post lumpectomy and sentinel lymph node biopsy 09/27/2015 Lobular and ductal carcinoma Stage pT1b pN1a M0" On 02/21/16 15:06 Frances Hogan wrote "Abnormal right breast mammogram 08/01/2015 Status post biopsy 08/27/2015 10:00 lesion invasive ductal carcinoma, grade 1 Estrogen receptor positive, progesterone receptor negative, HER-2/quique negative 11:00 lesion invasive lobular carcinoma, grade 1 Estrogen receptor positive, progesterone receptor positive, HER-2/quique negative Status post lumpectomy and sentinel lymph node biopsy 09/27/2015 Lobular and ductal carcinoma Stage pT1b pN1a M0 Status post radiation therapy, treatment stopped 01/26/2016 received 3780 cGy " On 10/14/15 13:28 Frances Hogan wrote "Abnormal right breast mammogram 08/01/2015 Status post biopsy 08/27/2015 10:00 lesion invasive ductal carcinoma, grade 1 Estrogen receptor positive, progesterone receptor negative, HER-2/quique negative 11:00 lesion invasive lobular carcinoma, grade 1 Estrogen receptor positive, progesterone receptor positive, HER-2/quique negative Status post lumpectomy and sentinel lymph node biopsy 09/27/2015 Lobular and ductal carcinoma Stage pT1b pN1a M0 " Breast cancer RT BREAST (SX AND RADIATION) CHF (congestive heart failure) Compression fracture of lumbar vertebra CVA (cerebrovascular accident) Duodenal obstruction Elevated INR Facial basal cell cancer NOSE Gastric outlet obstruction Gastric ulcer GERD (gastroesophageal reflux disease) HLD (hyperlipidemia) HTN (hypertension) Hypertensive urgency Incarcerated paraesophageal hernia Intermittent small bowel obstruction Left sided abdominal pain Lower extremity pain, left On anticoagulant therapy warfarin/plavix daily Osteoarthritis 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" (FOLLOWED BY [facility]) Pancreatitis Paraesophageal hiatal hernia Sarcoidosis DX 1967 (LYMPH NODES AND LUNGS) Small bowel obstruction SSS (sick sinus syndrome) (02/18/14) Stroke OVER 20 YEARS AGO (NO CURRENT PROBLEMS) Ulcerative colitis Ulcerative colitis "REMISSION" Unintentional weight loss per pt reason for colonoscopy Vomiting Surgical History H/O total hysterectomy UTERINE MASS REMOVED (BENIGN) History of appendectomy History of cataract surgery History of colonoscopy History of esophagogastroduodenoscopy (EGD) recently had 03/2019 @ [facility] [place] per pt they found 2 ulcers-1 in esophagus and 1 in stomach History of herniorrhaphy History of kyphoplasty History of tonsillectomy and adenoidectomy History of tooth extraction Hx of lumpectomy RT Family History Brother Coronary heart disease Mother Coronary heart disease Benign essential HTN Myocardial infarction Stroke Other PVD (peripheral vascular disease) Denies family history of Ovarian cancer Prostate cancer Breast cancer Lung cancer Colorectal cancer Social History Smoking Status: Never smoker Second Hand Exposure: No; Do You Dip or Chew Tobacco: No; Hx Alcohol Use: No Hx Substance Use: No Preferred Language: Uzbek Communication Ability: Effective Visual Impairment: Limited Hearing Ability: Normal Eap Specialist Required: No Beliefs That Will Affect Care: None marital status: Single Current Living Situation: Other Current Living Situation Comment: [facility] - independent living current occupational status: retired How many Children do You have: 1 Feels Safe at Home: Yes Childhood Exposure to Second-Hand Smoke: No caffeine: Yes (drinks soda ) Dental Care, Regularly: Yes Physical Activity Frequency: Daily Physical Activity Frequency Comment: walks daily Seatbelt Use: always Sunscreen Use: No Assistive Devices: Cane, Walker and Other Review of Systems Review of Systems: ESAS Pain 0/3 Dyspnea 0/3 Anxiety 0/3 Nausea 0/3 Drowsiness 0/3 Physical Exam Constitutional: + frail appearing; no acute distress Respiratory: normal respiratory effort; no labored breathing Musculoskeletal: Extremities: + muscle atrophy Skin: warm and dry Results & Data Vital Signs (Past 12 Hours) Vital Signs Temp Pulse Pulse Resp BP BP Pulse Ox 01/08/23 10:16 97.5 F L 94 H 18 121/78 97 01/08/23 07:45 99 H 01/08/23 07:45 01/08/23 08:10 97.3 F L 108 H 17 121/79 97 01/08/23 03:48 97.2 F L 106 H 16 129/84 97 O2 Del Method 01/08/23 10:16 Room Air 01/08/23 07:45 01/08/23 07:45 Room Air 01/08/23 08:10 Room Air 01/08/23 03:48 Room Air PG Care Time/CCT Total # of Minutes Spent Total Time Spent: 69 Total Time Spent with Patient: Total time spent is greater than 50% in coordination of care (as documented) at patient's floor/unit and/or counseling patient:[id number] goals of care, patient and family education and support, coordination of care Coding Level of Care Code 68707 INT INP/OBS CARE 2/55MIN Diagnoses Dysphagia R13.10 Palliative care encounter Z51.5
[2023-01-08] MEDS: WARFARIN SOD 3 MG TAB PO SCH (14:55)
[2023-01-08] MEDS ORDERED: bisacodyL 5 MG TABEC PO PRN (15:43)
[2023-01-08] MEDS ORDERED: ENOXAPARIN 1 MG/KG SQ SCH (18:00)
[2023-01-08] MEDS: ENOXAPARIN INJ 60 MG/0.6 ML SYR SQ SCH (18:36)
[2023-01-08] MEDS: AZITHROMYCIN 500 MG in DEXTROSE 5% 250 ML IV SCH (22:00)
[2023-01-08] MEDS: FAMOTIDINE 20 MG TAB PO SCH (22:21)
[2023-01-09] MEDS: ENOXAPARIN INJ 60 MG/0.6 ML SYR SQ SCH (05:36)
--- NOTE | 2023-01-09 07:32 | Hospitalist Progress Note ---
Date of Service January 09, 2023 Assessment & Plan (1) Delirium: Plan: Metabolic encephalopathy suspected secondary to infectious process, likely lung primary, resolved CT Head without evidence of new CVA, known chronic lacunar/basilar infarct seen Admission ESR and CRP elevated, procal detectable but not grossly severely elevated Continue azithro for pneumonia through 01/09, completed ertapenem course Has been listed as permissive aspiration per Speech in the past, family member and patient confirms this and confirms advanced directive Minced and moist diet with aspiration precautions going ok, not having the best intake, nutrition involved PT and OT recommending SNF on discharge, plan for [facility], awaiting bed availability Palliative Care consulted, patient at this time desires all interventions to get stronger and return to relative independence (2) Aspiration pneumonia: Plan: See above Complete azithromycin, monitor respiratory status, daily CBC Minced and moist diet, permissive aspiration Goals of care warranted given intake and nutritional difficulties, ongoing debility, will work toward prioritizing nutritional status (3) Leukocytosis: Plan: Improved on recent CBC With dirty UA, however UCx <[address] with bibasilar infiltrates pneumonitis/PNA, history of permissive aspiration BCx NGTD Former surgical site R groin clean, nontender, no evidence of infection Less suspicious of meningitis/encephalitis given improvement with PNA tx Lyme negative Biofire negative Cont azithromycin, completed ertapenem, MRSA nares negative (4) Elevated INR: Plan: INR originally increased despite not receiving warfarin since 01/01/23, multifactorial likely with azithromycin use and poor nutrition Hematology consulted and appreciate recommendations, did add fibrinogen level which is elevated, however less likely DIC as patient is not septic and doing fairly well, no evidence of bleeding Vitamin K 2.5mg PO x1 given to patient as with her advanced age she is at increased risk of bleeding, with repeat INR 1.0, continue warfarin and bridge with Lovenox until INR therapeutic Goals of care discussed difficulty of bleeding vs. clotting and warfarin use, for now after discussion with patient and POA Duy will continue warfarin as patient's concern of stroke outweighs her concern about having bleeding Daily INR (5) Ischemia of left lower extremity: Plan: S/p Left Lower Extremity Arteriogram, Mechanical Thrombectomy Left Superficial Femoral Artery, Percutaneous Transluminal Angioplasty and Stenting of Left Superficial Femoral Artery - Dr Duncan Plavix + statin held 01/02 for difficulty with swallowing, resumed 8/10 H/H stable R groin previous puncture site is clean, no cellulitis, no hematoma Legs are well perfused and pulses intact Appreciate vascular surgery follow up in outpatient setting Hypercoagulable state from COVID infection in November [address] Duran in Coumadin clinic follows patient; clopidogrel resistance assay pending since 01/02/23 given she was on AC during this clotting event, if positive will need Plavix transitioned to Brilinta (6) Atrial fibrillation: Plan: Chronic atrial fibrillation HR trend in last 24 hours is 100-120bpm, continue home metoprolol succinate 200mg PO daily, diltiazem 360mg PO daily Suspect acute pain, her delirium, SIRS, dehydration, etc. contributed to her RVR INR reviewed, 1.0 today, continue warfarin, may need dose adjustment She is not symptomatic from the rapid rates, and she is not in CHF, defer on adding 3rd AV marian agent at this time; Lopressor IV prn HR >120 sustained Supportive care for delirium (7) HTN (hypertension): Plan: Is typically on clonidine TID, diltiazem 360mg daily, furosemide 20mg daily, metoprolol succinate 200mg daily With noted labile/brittle HTN while on metoprolol/diltiazem, at times has normal BPs Discontinued clonidine altogether for discharge, continue metoprolol/diltiazem, holding furosemide given no evidence of fluid overload or weight gain, last Echo no CHF, and BP normal Allow for an element of mild hypertension in outpatient setting to decrease fall risks (8) HLD (hyperlipidemia): Plan: Cont rosuvastatin (9) Ulcerative colitis: Plan: Continue mercaptopurine/sulfasalazine (10) GERD (gastroesophageal reflux disease): Plan: Continue pantoprazole (11) Candidiasis of mouth and esophagus: Plan: Cont nystatin swish and spit (12) Dysphagia: Plan: Appreciate speech therapy consultation Minced and moist diet, permissive aspiration (13) Neck pain: Plan: Hyperextended neck improved with pillows for propping up head, and improved with resolution of altered mental status From severe DJD causing significant cervical lordosis, cervical spine CT without other acute or concerning abnormalities Plan Ongoing PT and OT, for SNF rehab on discharge, medically stable for discharge when bed available Admission and Anticipated Discharge Date Admission Date: December 26, 2022 Results & Data Results & Data Vital Signs (Past 12 Hours) Vital Signs Temp Pulse Pulse Resp BP Pulse Ox O2 Del Method 01/09/23 07:15 106 H 01/09/23 07:15 Room Air 01/09/23 03:35 36.4 C L 78 20 112/59 L 94 Room Air 01/08/23 22:01 99 H 01/08/23 23:01 36.5 C 81 20 107/68 96 Room Air PG Care Time/CCT Total # of Minutes Spent Total Time Spent with Patient: Total time spent is greater than 50% in coordination of care (as documented) at patient's floor/unit and/or counseling patient: Coding Diagnoses Delirium R41.0 Aspiration pneumonia J69.0 Leukocytosis D72.829 Elevated INR R79.1 Ischemia of left lower extremity I99.8 Atrial fibrillation I48.91 HTN (hypertension) I10 Hypertension type: essential hypertension HLD (hyperlipidemia) E78.5 Ulcerative colitis K51.90 GERD (gastroesophageal reflux disease) K21.9 Candidiasis of mouth and esophagus B37.81; B37.0 Dysphagia R13.10 Neck pain M54.2 (7) HTN (hypertension) Hypertension type: essential hypertension Qualified Code(s): I10 - Essential (primary) hypertension
[2023-01-09 08:06] LABS: Prothrombin Time 20.8 Seconds (9.0-12.0)
[2023-01-09 08:17] VITALS: O2SAT 95
[2023-01-09] MEDS: PANTOprazole 40 MG in SYRINGE 0 ML IV SCH (08:24)
[2023-01-09] MEDS: NYSTATIN SUSP 500,000 U/5 ML UDC PO SCH ×2 (08:24→12:30)
[2023-01-09] MEDS: dilTIAZem HCL 120 MG CAPCR PO SCH (08:25)
[2023-01-09] MEDS: ACETAMINOPHEN 500 MG TAB PO SCH ×2 (08:25→14:08)
[2023-01-09] MEDS: CLOPIDOGREL BISULFATE 75 MG TAB PO SCH (08:25)
[2023-01-09] MEDS: ROSUVASTATIN CALCIUM 5 MG TAB PO SCH (08:25)
[2023-01-09] MEDS: MERCAPTOPURINE 50 MG TAB PO SCH (08:26)
[2023-01-09] MEDS ORDERED: PANTOprazole 40 MG TAB PO SCH (09:15)
[2023-01-09 10:59] VITALS: PULSE 78; TEMP 97.3
[2023-01-09] MEDS ORDERED: CHOLECALCIFEROL 1,000 UNITS 25 MCG TAB PO SCH (12:00)
--- NOTE | 2023-01-09 12:05 | Discharge Summary ---
Discharge Summary Date of Service January 09, 2023 Admission HPI Per Admitting Provider Charline Meehan is an 87 year old female who presents to the ER with calf pain and numbness. Numbness started two days ago. Better on exertion but much worse at night when she was not moving it. Associated with it feeling cold. Improved since coming to the ER. Current severity 1/, 2/10 on arrival to the ER. She has a history of peripheral artery disease and thrombus to left lower extremity with femoral stent in place, does not feel as severe as her prior blood clot. Currently taking warfarin for atrial fibrillation and clopidogrel for peripheral artery disease. Warfarin most recently has been supratherapeutic with INR 5.0 in December 07 and 2.3 on December 14. Today INR is 2.9. No trauma to her leg, fever, chills, falls, chest pain, shortness of breath. She reports having COVID-19 infection 1 month ago for which she was not hospitalized but felt very unwell for 5 days. Admission Exam Per Admitting Provider Constitutional: WD/WN, vitals as above Eyes: PERRL, conjunctivae normal, anicteric sclerae Respiratory: normal respiratory effort, lungs clear to auscultation Cardiovascular: RRR, no murmur, no edema Vessels: dorsalis pedis pulses present (weak on left side); + posterior tibial pulses abnormal (absent on left side) Gastrointestinal (Abdomen): normal bowel sounds, soft, nontender, no hepatosplenomegaly Musculoskeletal: no cyanosis or clubbing, extremities motor strength 5/5 Skin: no rashes, warm and dry Neurologic: moves all extremities and awake; not confused Motor/Sensory: no sensory deficit (sensation reportedly better than previously) Psychiatric: A+Ox3, euthymic affect Principal Dx & Hospital Course #1 = Principal Diagnosis (1) Delirium: Delirium: Metabolic encephalopathy secondary to infectious process, lung primary, resolved CT Head without evidence of new CVA, known chronic lacunar/basilar infarct seen Completed courses of azithro/ertapenem for PNA Has been listed as permissive aspiration per Speech in the past, family member and patient confirms this and confirms advanced directive Minced and moist diet with aspiration precautions going ok, not having the best intake, nutrition involved Palliative Care consulted, patient at this time desires all interventions to get stronger and return to relative independence Aspiration pneumonia: Completed azithromycin and ertapenem Minced and moist diet, permissive aspiration Goals of care warranted given intake and nutritional difficulties, ongoing debility, work toward prioritizing nutritional status Leukocytosis: Improved on recent CBC With dirty UA, however UCx <[address] with bibasilar infiltrates pneumonitis/PNA, history of permissive aspiration BCx NGTD Former surgical site R groin clean, nontender, no evidence of infection Less suspicious of meningitis/encephalitis given improvement with PNA tx Lyme negative Biofire negative Incidental COVID positive on day of discharge, asymptomatic at that time Elevated INR: INR originally increased despite not receiving warfarin since 01/01/23, multifactorial likely with azithromycin use and poor nutrition Vitamin K 2.5mg PO x1 given to patient as with her advanced age she is at increased risk of bleeding INR now 2.0, continue daily warfarin 3mg with INR on or Sunday Goals of care discussed difficulty of bleeding vs. clotting and warfarin use, for now after discussion with patient and POA Duy will continue warfarin as patient's concern of stroke outweighs her concern about having bleeding Ischemia of left lower extremity: S/p Left Lower Extremity Arteriogram, Mechanical Thrombectomy Left Superficial Femoral Artery, Percutaneous Transluminal Angioplasty and Stenting of Left Superficial Femoral Artery - Dr Duncan Plavix + statin H/H stable R groin previous puncture site is clean, no cellulitis, no hematoma Legs are well perfused and pulses intact Appreciate vascular surgery follow up in outpatient setting Dr Duran in Coumadin clinic follows patient; clopidogrel resistance assay pending since 01/02/23 given she was on AC during this clotting event, if positive will need Plavix transitioned to Brilinta Atrial fibrillation: Chronic atrial fibrillation HR trend in last 24 hours is 80-90bpm, continue home metoprolol succinate 200mg PO daily, diltiazem 360mg PO daily Suspect acute pain, her delirium, SIRS, dehydration, etc. contributed to her RVR Continue warfarin, may need dose adjustment She is not symptomatic when she has HR in 110s at times, and she is not in CHF, defer on adding 3rd AV marian agent at this time HTN (hypertension): With noted labile/brittle HTN while on metoprolol/diltiazem, at times has normal BPs Discontinued clonidine altogether for discharge, continue metoprolol/diltiazem, last Echo no CHF, and BP normal Allow for an element of mild hypertension in outpatient setting to decrease fall risks HLD (hyperlipidemia): Cont rosuvastatin Ulcerative colitis: Continue mercaptopurine/sulfasalazine GERD (gastroesophageal reflux disease): Continue pantoprazole Candidiasis of mouth and esophagus: Nystatin swish and spit Dysphagia: Appreciate speech therapy consultation Minced and moist diet, permissive aspiration Neck pain: Hyperextended neck improved with pillows for propping up head, and improved with resolution of altered mental status From severe DJD causing significant cervical lordosis, cervical spine CT without other acute or concerning abnormalities (2) Aspiration pneumonia: (3) Leukocytosis: (4) Elevated INR: (5) Ischemia of left lower extremity: (6) Atrial fibrillation: (7) HTN (hypertension): (8) HLD (hyperlipidemia): (9) Ulcerative colitis: (10) GERD (gastroesophageal reflux disease): (11) Candidiasis of mouth and esophagus: (12) Dysphagia: (13) Neck pain: Updated Medication List Medication Instructions Recorded Confirmed Type walker #1 ea 03/11/19 12/26/22 Rx cholecalciferol (vitamin D3) 50 2,000 unit PO DAILY@1200 07/05/20 12/26/22 History mcg (2,000 unit) capsule (Vitamin D3) multivitamin with minerals-folic 1 tab PO DAILY@1200 07/05/20 12/26/22 History acid 200 mcg chewable tablet (Adult One Daily Gummies) cyclosporine 0.05 % eye drops in a 1 drp OPB Q12H 11/23/20 12/26/22 History dropperette (Restasis) loratadine 10 mg tablet (Claritin) 10 mg PO HS PRN Allergy Symptoms 11/23/20 12/26/22 History denosumab 60 mg/mL subcutaneous 60 mg subcut .COMPLEX 02/25/21 12/26/22 History syringe (Prolia) calcium carb,cit ER 600 mg-vit D3 1 tab PO BID 04/07/21 12/26/22 History 12.5 mcg (500 unit) tablet,ext.rel (Citracal-D3 Slow Release) vitamins A,C,J-reud-asaidv 2,148 1 tab PO BID 04/07/21 12/26/22 History mcg-113 mg-45 mg-17.4 mg tablet (PreserVision AREDS) doxycycline hyclate 100 mg capsule 100 mg PO ONCE PRN dental work #10 05/04/21 12/26/22 Rx caps acetaminophen 325 mg tablet 650 mg PO Q4H PRN pain 07/19/21 12/26/22 History mercaptopurine 50 mg tablet See Rx Instructions .Route 01/04/22 12/26/22 Rx .COMPLEX #135 tabs famotidine 20 mg tablet 20 mg PO HS #90 tabs 04/05/22 12/26/22 Rx metoprolol succinate 100 mg 200 mg PO DAILY@1200 #180 tabs 04/05/22 12/26/22 Rx tablet,extended release 24 hr clopidogrel 75 mg tablet (Plavix) 75 mg PO DAILY #90 tabs 08/23/22 12/26/22 Rx rosuvastatin 5 mg tablet 5 mg PO DAILY #90 tabs 08/23/22 12/26/22 Rx diltiazem HCl 360 mg 360 mg PO DAILY #90 caps 10/02/22 12/26/22 Rx capsule,extended release 24 hr (Cardizem CD) pantoprazole 40 mg tablet,delayed 40 mg PO BIDM 12/26/22 12/26/22 History release sulfasalazine 500 mg tablet 1,000 mg PO BIDM 12/26/22 12/26/22 History trazodone 50 mg tablet 25 mg PO HS 12/26/22 12/26/22 History bisacodyl 5 mg tablet,delayed 5 mg PO BID PRN #0 tabs 01/09/23 Rx release (Gentle Laxative (bisacodyl)) nystatin 100,000 unit/mL oral 5 ml PO QID #0 mL 01/09/23 Rx suspension warfarin 3 mg tablet 3 mg PO DAILY@1600 30 days #30 tabs 01/09/23 Rx Hospital Stay Data Consultations 12/26/22 14:21 Consult Vascular Surgery Routine 12/26/22 16:51 ED Decision to Admit Stat 12/27/22 14:53 Consult Cellophane Wrapping Examiner Routine 01/03/23 09:37 Consult Neurology Routine 01/06/23 07:38 Consult Hematology Routine 01/07/23 10:50 Consult Palliative Care Routine Procedures Performed Operation Date: 12/28/22 07:00 <No data on this case meets the specified criteria> Diagnostic Imagining Performed 12/26/22 09:07 US venous doppler LE LT Urgent 12/26/22 09:45 US arterial duplex LE LT Stat 12/27/22 07:16 EV angio LE LT Routine 01/01/23 18:30 CT cervical spine wo con Routine CT head/brain wo con Routine 01/02/23 12:30 CT chest diagnostic wo con Routine Pending Results Patient Have Any Pending Studies at Discharge: No Discharge Instructions Given to Patient (Per Discharging Provider) Delirium: Metabolic encephalopathy secondary to infectious process, lung primary, resolved CT Head without evidence of new CVA, known chronic lacunar/basilar infarct seen Completed courses of azithro/ertapenem for PNA Has been listed as permissive aspiration per Speech in the past, family member and patient confirms this and confirms advanced directive Minced and moist diet with aspiration precautions going ok, not having the best intake, nutrition involved Palliative Care consulted, patient at this time desires all interventions to get stronger and return to relative independence Aspiration pneumonia: Completed azithromycin and ertapenem Minced and moist diet, permissive aspiration Goals of care warranted given intake and nutritional difficulties, ongoing debility, will work toward prioritizing nutritional status Leukocytosis: Improved on recent CBC With dirty UA, however UCx <[address] with bibasilar infiltrates pneumonitis/PNA, history of permissive aspiration BCx NGTD Former surgical site R groin clean, nontender, no evidence of infection Less suspicious of meningitis/encephalitis given improvement with PNA tx Lyme negative Biofire negative Elevated INR: INR originally increased despite not receiving warfarin since 01/01/23, multifactorial likely with azithromycin use and poor nutrition Vitamin K 2.5mg PO x1 given to patient as with her advanced age she is at increased risk of bleeding INR now 2.0, continue daily warfarin 3mg with INR on or Sunday Goals of care discussed difficulty of bleeding vs. clotting and warfarin use, for now after discussion with patient and POA Duy will continue warfarin as patient's concern of stroke outweighs her concern about having bleeding Ischemia of left lower extremity: S/p Left Lower Extremity Arteriogram, Mechanical Thrombectomy Left Superficial Femoral Artery, Percutaneous Transluminal Angioplasty and Stenting of Left Superficial Femoral Artery - Dr Duncan Plavix + statin H/H stable R groin previous puncture site is clean, no cellulitis, no hematoma Legs are well perfused and pulses intact Appreciate vascular surgery follow up in outpatient setting Dr Duran in Coumadin clinic follows patient; clopidogrel resistance assay pending since 01/02/23 given she was on AC during this clotting event, if positive will need Plavix transitioned to Brilinta Atrial fibrillation: Chronic atrial fibrillation HR trend in last 24 hours is 80-90bpm, continue home metoprolol succinate 200mg PO daily, diltiazem 360mg PO daily Suspect acute pain, her delirium, SIRS, dehydration, etc. contributed to her RVR Continue warfarin, may need dose adjustment She is not symptomatic from the rapid rates, and she is not in CHF, defer on adding 3rd AV marian agent at this time HTN (hypertension): With noted labile/brittle HTN while on metoprolol/diltiazem, at times has normal BPs Discontinued clonidine altogether for discharge, continue metoprolol/diltiazem, holding furosemide given no evidence of fluid overload or weight gain, last Echo no CHF, and BP normal Allow for an element of mild hypertension in outpatient setting to decrease fall risks HLD (hyperlipidemia): Cont rosuvastatin Ulcerative colitis: Continue mercaptopurine/sulfasalazine GERD (gastroesophageal reflux disease): Continue pantoprazole Candidiasis of mouth and esophagus: Nystatin swish and spit Dysphagia: Appreciate speech therapy consultation Minced and moist diet, permissive aspiration Neck pain: Hyperextended neck improved with pillows for propping up head, and improved with resolution of altered mental status From severe DJD causing significant cervical lordosis, cervical spine CT without other acute or concerning abnormalities Total Time Total Time Spent Total Time Spent (In Minutes): 30 min Coding Level of Care Code 76194 IN/OBS DISCH 30 MIN/LESS Diagnoses Delirium R41.0 Aspiration pneumonia J69.0 Leukocytosis D72.829 Elevated INR R79.1 Ischemia of left lower extremity I99.8 Atrial fibrillation I48.91 HTN (hypertension) I10 Hypertension type: essential hypertension HLD (hyperlipidemia) E78.5 Ulcerative colitis K51.90 GERD (gastroesophageal reflux disease) K21.9 Candidiasis of mouth and esophagus B37.81; B37.0 Dysphagia R13.10 Neck pain M54.2
[2023-01-09] MEDS: sulfaSALAzine 500 MG TABLET PO SCH (12:29)
[2023-01-09] MEDS: METOPROLOL SUCC 50MG EXT REL TAB PO SCH (12:30)
[2023-01-09 13:01] VITALS: BP 170/77
[2023-01-09] MEDS ORDERED: WARFARIN SOD 3 MG TAB PO SCH (16:00)
== END 2023-01-09 16:08 | DRG 270 ==
LOC: ED 08:53 → SUATTDRO 14:25 → EDINP 14:25 → 1E 18:27 → 4W 12-28 22:24 → 2S 12-29 14:24

== ENCOUNTER 2023-05-19 21:12 | Inpatient (IN) ==
[2023-05-19] MEDS ORDERED: traMADol HCL 50 MG TABLET PO STA (21:37)
--- NOTE | 2023-05-19 21:39 | Emergency Department Note ---
Impression & Plan Back pain ADMIT ED Provider Note HPI: History obtained from patient The patient is a 88-year-old female with history of compression fracture of the lumbar spine, kyphoplasty, presents the emergency department for the third time in the past week with lower back pain. Patient states that she seems to be doing well after she was discharged last night however today again developed back pain that was refractory to Tylenol and tramadol. Patient states she is now having difficulty walking. Patient denies any urinary incontinence or retention, denies any recent fever, denies any sensory deficits or saddle anesthesia. On arrival here to the ED the patient is hemodynamically stable, she is in no acute distress on my initial assessment but states her pain worsens with certain movements or walking. ROS: - Per HPI Differential Diagnosis: Acute on chronic back pain, cauda equina syndrome, compression fracture, amongst other potential pathologies. *Outpatient medications and allergy history reviewed. PE: General: Alert HEENT: Normocephalic, trachea midline Eyes: Extraocular eye movement is intact, no scleral erythema Pulmonary: Clear to auscultation bilaterally, no wheezing Cardio: Regular rate and rhythm GI: Abdomen is soft to palpation : No suprapubic tenderness MSK: No evidence of trauma or malformation of the extremities, no edema, no midline tenderness of the lumbar spine, patient is able to maintain flexion at the hips Skin: No evidence of rash Neuro: Alert, no focal deficits Psychiatric: Cooperative INDEPENDENT INTERPRETATIONS: clinical research monitor: (As interpreted by myself): - An order was placed for continuous cardiac monitoring - Patient was noted to be in sinus rhythm with a rate of 75 Lumbar x-ray: (Per my interpretation): -No acute fracture, degenerative changes noted Interventions provided in ED: -Tramadol Medical Decision Making: IV was established and lab work obtained, patient was placed on monitor and storage bin tender. Lab work shows no leukocytosis, hemoglobin is 11.9, platelet count is 423, CMP does not show any critical findings, no evidence of acute kidney injury. X-ray imaging of the lumbar spine was obtained and shows degenerative changes without obvious acute fracture per my interpretation. Patient does not have any red flag findings for cauda equina syndrome. I do not think MRI imaging of the lumbar spine is indicated emergently this evening. Patient was given tramadol here in the ED, on my reassessment her pain is improved, she states it is mostly positional but admits to ambulatory dysfunction and this is her third visit here to the ED in the past week and therefore I do think she would benefit from admission for pain control and PT. Patient is in agreement. [facility] Hospitalist service was consulted for admission. Consultants/Discussions held with other healthcare providers: -Hospitalist, Dr. Marroquin Disposition discussion held by myself with: -Patient Diagnosis: 1. Back pain, acute on chronic 2. Ambulatory dysfunction, acute Disposition: Admission Duy Zavala DO Emergency Medicine Past Med/Surg History Medical History Palliative care encounter Aspiration pneumonia Duodenal obstruction Left sided abdominal pain Vomiting Gastric outlet obstruction Acute pancreatitis Elevated INR Pancreatitis Small bowel obstruction Intermittent small bowel obstruction Lower extremity pain, left Paraesophageal hiatal hernia Unintentional weight loss per pt reason for colonoscopy On anticoagulant therapy warfarin/plavix daily Gastric ulcer Compression fracture of lumbar vertebra Osteoarthritis Ulcerative colitis "REMISSION" Facial basal cell cancer NOSE Breast cancer RT BREAST (SX AND RADIATION) 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 Generator changed out on 03/01/23. Stroke OVER 20 YEARS AGO (NO CURRENT PROBLEMS) Ulcerative colitis Sarcoidosis DX 1966 (LYMPH NODES AND LUNGS) HLD (hyperlipidemia) GERD (gastroesophageal reflux disease) Aortic stenosis SSS (sick sinus syndrome) (02/18/14) Incarcerated paraesophageal hernia Hypertensive urgency CHF (congestive heart failure) Breast cancer (08/27/15) "Abnormal right breast mammogram 08/01/2015 Status post biopsy 08/27/2015 10:00 lesion invasive ductal carcinoma, grade 1 Estrogen receptor positive, progesterone receptor negative, HER-2/quique negative 11:00 lesion invasive lobular carcinoma, grade 1 Estrogen receptor positive, progesterone receptor positive, HER-2/quique negative Status post lumpectomy and sentinel lymph node biopsy 09/27/2015 Lobular and ductal carcinoma Stage pT1b pN1a M0 Radiation therapy stopped 01/26/2016 received 3780 cGy. Treatments stopped early due to admission for compression fracture and inability to tolerate being in the treatment position" On 02/21/16 15:06 Frances Hogan wrote "Abnormal right breast mammogram 08/01/2015 Status post biopsy 08/27/2015 10:00 lesion invasive ductal carcinoma, grade 1 Estrogen receptor positive, progesterone receptor negative, HER-2/quique negative 11:00 lesion invasive lobular carcinoma, grade 1 Estrogen receptor positive, progesterone receptor positive, HER-2/quique negative Status post lumpectomy and sentinel lymph node biopsy 09/27/2015 Lobular and ductal carcinoma Stage pT1b pN1a M0" On 02/21/16 15:06 Frances Hogan wrote "Abnormal right breast mammogram 08/01/2015 Status post biopsy 08/27/2015 10:00 lesion invasive ductal carcinoma, grade 1 Estrogen receptor positive, progesterone receptor negative, HER-2/quique negative 11:00 lesion invasive lobular carcinoma, grade 1 Estrogen receptor positive, progesterone receptor positive, HER-2/quique negative Status post lumpectomy and sentinel lymph node biopsy 09/27/2015 Lobular and ductal carcinoma Stage pT1b pN1a M0 Status post radiation therapy, treatment stopped 01/26/2016 received 3780 cGy " On 10/14/15 13:28 Frances Hogan wrote "Abnormal right breast mammogram 08/01/2015 Status post biopsy 08/27/2015 10:00 lesion invasive ductal carcinoma, grade 1 Estrogen receptor positive, progesterone receptor negative, HER-2/quique negative 11:00 lesion invasive lobular carcinoma, grade 1 Estrogen receptor positive, progesterone receptor positive, HER-2/quique negative Status post lumpectomy and sentinel lymph node biopsy 09/27/2015 Lobular and ductal carcinoma Stage pT1b pN1a M0 " Atrial fibrillation on warfarin/plavix HTN (hypertension) CVA (cerebrovascular accident) Surgical History H/O total hysterectomy History of kyphoplasty History of esophagogastroduodenoscopy (EGD) History of colonoscopy History of herniorrhaphy History of appendectomy Hx of lumpectomy History of tooth extraction History of tonsillectomy and adenoidectomy History of cataract surgery Family History Brother Coronary heart disease Mother Coronary heart disease Benign essential HTN Myocardial infarction Stroke Other PVD (peripheral vascular disease) Denies family history of Ovarian cancer Prostate cancer Breast cancer Lung cancer Colorectal cancer Social History Smoking Status: Never smoker Second Hand Exposure: No; Do You Dip or Chew Tobacco: No; Hx Alcohol Use: No Hx Substance Use: No Preferred Language: Qatari Communication Ability: Effective Visual Impairment: Limited Hearing Ability: Normal Bolt Threader Required: No Beliefs That Will Affect Care: None marital status: Single Current Living Situation: Intermediate Current Living Situation Comment: [place] - independent living current occupational status: retired How many Children do You have: 1 Feels Safe at Home: Yes Childhood Exposure to Second-Hand Smoke: No caffeine: Yes (drinks soda ) Dental Care, Regularly: Yes Physical Activity Frequency: Daily Physical Activity Frequency Comment: walks daily Seatbelt Use: always Sunscreen Use: No Assistive Devices: Cane, Walker and Other Allergies Allergies Allergy/AdvReac Type Severity Reaction Status Date / Time Penicillins Allergy Severe THROAT Verified 05/19/23 22:27 SWELLS, PASSES OUT aspirin Allergy Intermediate WELTS Verified 05/19/23 22:27 AROUND EYES [place] And Derivatives Allergy Mild Runny/stuffy Verified 05/19/23 22:27 nose grapefruit Allergy Mild Nasal Verified 05/19/23 22:27 Discharge lemon Allergy Mild Nasal Verified 05/19/23 22:27 Discharge [place] Allergy Mild Nasal Verified 05/19/23 22:27 Discharge orange Allergy Mild Nasal Verified 05/19/23 22:27 Discharge mayonnaise Allergy Unknown Unknown Verified 05/19/23 22:27 chicken derived AdvReac Intermediate DIARRHEA Verified 05/19/23 22:27 chocolate flavor AdvReac Intermediate DIARRHEA Verified 05/19/23 22:27 lactose AdvReac Intermediate GI upset Verified 05/19/23 22:27 [id number] Reductase AdvReac Intermediate DID NOT Verified 05/19/23 22:27 Inhibitor WORK [Geysvux-Vwp-Itl Reductase Inhibitor] grass pollen-perennial rye, AdvReac Mild RUNNY Verified 05/19/23 22:27 standar NOSE/SINUS ISSUES mushroom AdvReac Mild GI SYMPTOMS Verified 05/19/23 22:27 pollen extracts AdvReac Mild RUNNY Verified 05/19/23 22:27 NOSE/SINUS ISSUES soy AdvReac Mild GI SYMPTOMS Verified 05/19/23 22:27 lorazepam AdvReac Hallucinati Verified 05/19/23 22:27 ng Home Meds Home Medications Medication Instructions Recorded Confirmed cyclosporine 0.05 % eye drops in a 1 drp OPB [facility] 11/23/20 05/19/23 dropperette (Restasis) loratadine 10 mg tablet (Claritin) 10 mg PO HS PRN Allergy Symptoms 11/23/20 05/19/23 calcium carb,cit ER 600 mg-vit D3 1 tab PO BIDM 04/07/21 05/19/23 12.5 mcg (500 unit) tablet,ext.rel (Citracal-D3 Slow Release) vitamins A,C,V-lfzk-qywfyj 2,148 1 tab PO BIDM 04/07/21 05/19/23 mcg-113 mg-45 mg-17.4 mg tablet (PreserVision AREDS) acetaminophen 325 mg tablet 650 mg PO Q4H PRN pain 07/19/21 05/19/23 pantoprazole 40 mg tablet,delayed 40 mg PO BIDM 12/26/22 05/19/23 release warfarin 3 mg tablet See Rx Instructions .Route .COMPLEX 04/27/23 05/19/23 clonidine HCl 0.1 mg tablet 0.1 mg PO HS 05/10/23 05/19/23 cholecalciferol (vitamin D3) 50 50 mcg PO QAM 05/14/23 05/19/23 mcg (2,000 unit) tablet (Vitamin D3) denosumab 60 mg/mL subcutaneous 60 mg subcut .Q 6 MONTHS 05/14/23 05/19/23 syringe (Prolia) mercaptopurine 50 mg tablet 75 mg PO DAILY 05/14/23 05/19/23 multivit with min-folic 1 tab PO QAM 05/14/23 05/19/23 acid-lutein 400 mcg-250 mcg chewable tablet (Centrum Silver) trazodone 50 mg tablet 25 mg PO HS 05/14/23 05/19/23 clopidogrel 75 mg tablet (Plavix) 75 mg PO QAM 05/19/23 05/19/23 diltiazem HCl 360 mg 360 mg PO QAM 05/19/23 05/19/23 capsule,extended release 24 hr (Cardizem CD) doxycycline hyclate 100 mg capsule 100 mg PO DIRECTED PRN 1 HOUR 05/19/23 05/19/23 PRIOR TO DENTAL WORK metoprolol succinate 200 mg 200 mg PO QAM 05/19/23 05/19/23 tablet,extended release 24 hr rosuvastatin 5 mg tablet 5 mg PO QDD 05/19/23 05/19/23 sulfasalazine 500 mg tablet 1,000 mg PO BIDM 05/19/23 05/19/23 Previous Rx's Medication Instructions Recorded famotidine 20 mg tablet 20 mg PO HS #90 tabs 04/05/22 furosemide 20 mg tablet 20 mg PO DAILY PRN Weight gain of 04/11/23 3 pounds over 24 hours #90 tabs potassium chloride 20 mEq 10 meq (1/2 x 20 mEq) PO DAILY PRN 04/11/23 tablet,extended on day that Lasix is taken #90 tabs release(part/cryst) (Klor-Con M) lidocaine 5 % topical patch 1 patch topical DAILY PRN pain #15 05/14/23 ea tramadol 50 mg tablet 50 mg PO Q8H PRN pain #20 tabs 05/17/23 Results & Data (ED) Vital Signs Vital Signs - 24 hr 05/19/23 21:25 05/19/23 23:00 Pulse Rate 87 74 Pulse Rhythm Regular Pulse Strength Normal Respiratory Rate 16 Respiratory Effort / Characteristics Non-Labored Spontaneous Respiratory Depth Normal Respiratory Pattern Regular Blood Pressure 166/93 H Blood Pressure Mean 117 Blood Pressure Position Lying Pulse Oximetry 97 Oxygen Delivery Method Room Air Sepsis Recent Fever Within 48 Hours No Sepsis New/Unexplained Change in Mental Status No Sepsis Action Taken by Nursing No Action Required Laboratory Data 05/19/23 22:47 05/19/23 22:47 Lab Results 05/19/23 Range/Units 22:47 WBC 9.74 (4.8-10.8) K/ul RBC 3.53 L (4.20-5.40) M/uL Hgb 11.9 L (12.0-16.0) g/dl Hct 36.2 L (37.0-47.0) % MCV 102.5 H (80.0-100.0) fL MCH 33.7 (25.0-34.0) pg MCHC 32.9 (32.0-36.0) g/dL RDW Std Deviation 69.4 H (36.4-46.3) fL RDW Coeff of Terrance 18.5 H (11.5-14.5) % Plt Count 423 H (130-400) K/uL MPV 10.9 (9.4-12.4) fL Immature Gran % (Auto) 0.6 % Neut % (Auto) 71.2 % Lymph % (Auto) 8.8 % [place] % (Auto) 18.3 % Eos % (Auto) 0.7 % Baso % (Auto) 0.4 % Neut # (Auto) 6.93 H (1.40-6.50) K/uL Lymph # (Auto) 0.86 L (1.20-3.40) K/uL [place] # (Auto) 1.78 H (0.11-0.59) K/uL Eos # (Auto) 0.07 (0.00-0.50) K/uL Baso # (Auto) 0.04 (0.00-0.20) K/uL Immature Gran # (Auto) 0.06 (0.01-0.20) K/uL Absolute Nucleated RBC 0.04 (0.00-0.12) K/uL Nucleated RBC % (auto) 0.4 % Sodium 137 (136-145) mmol/L Potassium 4.1 (3.5-5.1) mmol/L Chloride 98 (98-107) mmol/L Carbon Dioxide 32 (21-32) mmol/L Anion Gap 7 (3-11) BUN 20 (6-23) mg/dl Creatinine 0.76 (0.6-1.2) mg/dl Est Cr Clr Drug Dosing 41.4 ml/min Est GFR ( Amer) 80.6 ml/min Est GFR (Non-Af Amer) 69.5 ml/min BUN/Creatinine Ratio 26.3 H (10-20) Glucose 104 H (70-99(Fasting)) mg/dl Calcium 10.1 (8.6-10.3) mg/dl Total Bilirubin 0.7 (0.2-1.0) mg/dl AST 25 (13-39) U/L ALT 19 (7-52) U/L Alkaline Phosphatase 79 (34-104) U/L Total Protein 7.3 (6.0-8.3) gm/dl Albumin 4.0 (3.4-5.0) gm/dl Globulin 3.3 (2.5-4.0) gm/dl Albumin/Globulin Ratio 1.2 (0.9-2) Administered Medications Discontinued Medications Tramadol HCl (Tramadol Hcl 50 Mg Tablet) 50 mg PO NOW STA Stop: 05/19/23 21:38 Last Admin: 05/19/23 21:58 Dose: 50 mg Documented By: [facility] Discharge Plan Visit Data Chief Complaint: Back Injury/Pain Stated Complaint: LOWER BACK PAIN ED Provider: Duy Zavala Discharge Problem: Back pain Forms Stand Alone Forms: My [facility] Prescriptions Prescriptions: No Action clonidine HCl 0.1 mg tablet 0.1 mg PO HS acetaminophen 325 mg tablet 650 mg PO Q4H PRN (Reason: pain) warfarin 3 mg tablet See Rx Instructions .ROUTE .COMPLEX Rx Instructions: TAKES AT HS; Take 3mg by mouth on Mon/Sun/Sun and 6mg on Sun///Sun famotidine 20 mg tablet 20 mg PO HS Qty: 90 3RF calcium carb and citrate-vitD3 [Citracal-D3 Slow Release] 600 mg-12.5 mcg (500 unit) tablet extended release 1 tab PO BIDM PreserVision AREDS 7,160 unit- 113 mg-100 unit tablet 1 tab PO BIDM Rx Instructions: after breakfast and with dinner furosemide 20 mg tablet 20 mg PO DAILY PRN (Reason: Weight gain of 3 pounds over 24 hours) Qty: 90 3RF potassium chloride [Klor-Con M20] 20 mEq tablet,ER particles/crystals 10 meq PO DAILY PRN (Reason: on day that Lasix is taken) Qty: 90 3RF tramadol 50 mg tablet 50 mg PO Q8H PRN (Reason: pain) Qty: 20 0RF cholecalciferol (vitamin D3) [Vitamin D3] 50 mcg (2,000 unit) Tablet 50 mcg PO QAM Prolia 60 mg/mL Syringe 60 mg SUBCUT .Q 6 MONTHS Centrum Silver 400-250 mcg Tablet,Chewable 1 tab PO QAM trazodone 50 mg tablet 25 mg PO HS mercaptopurine 50 mg tablet 75 mg PO DAILY Rx Instructions: take 75 mgs daily lidocaine 5 % adhesive patch,medicated 1 patch TOP DAILY PRN (Reason: pain) Qty: 15 0RF Rx Instructions: leave on most painful area for 12 hrs doxycycline hyclate 100 mg capsule 100 mg PO DIRECTED PRN (Reason: 1 HOUR PRIOR TO DENTAL WORK) sulfasalazine 500 mg tablet 1,000 mg PO BIDM metoprolol succinate 200 mg tablet extended release 24 hr 200 mg PO QAM diltiazem HCl [Cardizem CD] 360 mg capsule,extended release 24hr 360 mg PO QAM clopidogrel [Plavix] 75 mg tablet 75 mg PO QAM rosuvastatin 5 mg tablet 5 mg PO QDD loratadine [Claritin] 10 mg Tablet 10 mg PO HS PRN (Reason: Allergy Symptoms) cyclosporine [Restasis] 0.05 % Dropperette 1 drp OPB [facility] pantoprazole 40 mg tablet,delayed release (DR/EC) 40 mg PO BIDM Rx Instructions: TAKE 1 TABLET BY MOUTH TWO TIMES DAILY BEFORE BREAKFAST AND DINNER Referrals Referrals: Ana Melgar MD [Primary Care Provider] - Discharge Problem: Back pain Qualifiers: Back pain location: low back pain Chronicity: chronic Back pain laterality: m idline Sciatica presence: without sciatica Qualified Code(s): M54.50 - Low back pain, unspecified
[2023-05-19 23:23] LABS: Basophils # (auto) 0.04 K/uL (0.00-0.20); Basophils % (auto) 0.4 %; Eosinophils # (auto) 0.07 K/uL (0.00-0.50); Eosinophils % (auto) 0.7 %; Hematocrit (blood only) 36.2 % (37.0-47.0); Hemoglobin 11.9 g/dl (12.0-16.0); Immature Granulocytes # (auto) 0.06 K/uL (0.01-0.20); Immature Granulocytes % (auto) 0.6 %; Lymphocytes # (auto) 0.86 K/uL (1.20-3.40); Lymphocytes % (auto) 8.8 %; Mean Corpuscular Hemoglobin 33.7 pg (25.0-34.0); Mean Corpuscular Hgb Conc 32.9 g/dL (32.0-36.0); Mean Corpuscular Volume 102.5 fL (80.0-100.0); Mean Platelet Volume 10.9 fL (9.4-12.4); Monocytes # (auto) 1.78 K/uL (0.11-0.59); Monocytes % (auto) 18.3 %; Neutrophils # (auto) 6.93 K/uL (1.40-6.50); Neutrophils % (auto) 71.2 %; Nucleated RBC # (auto) 0.04 K/uL (0.00-0.12); Nucleated RBC % (auto) 0.4 %; Platelet Count 423 K/uL (130-400); RDW Coefficient of Variation 18.5 % (11.5-14.5); RDW Standard Deviation 69.4 fL (36.4-46.3); Red Blood Count 3.53 M/uL (4.20-5.40); White Blood Count 9.74 K/ul (4.8-10.8)
[2023-05-19 23:35] LABS: Albumin Globulin Ratio 1.2 (0.9-2); BUN Creatinine Ratio 26.3 (10-20); Bilirubin,Total 0.7 mg/dl (0.2-1.0); Calcium 10.1 mg/dl (8.6-10.3); Creatinine Clr Calc Pharmacy 41.4 ml/min; Est GFR (African American) 80.6 ml/min; Est GFR (Non-African American) 69.5 ml/min; Globulin 3.3 gm/dl (2.5-4.0); Potassium 4.1 mmol/L (3.5-5.1); Total Protein 7.3 gm/dl (6.0-8.3)
--- NOTE | 2023-05-20 01:10 | History & Physical Report ---
Date of Service May 20, 2023 Assessment & Plan (1) Back pain: Plan: 88yo Female with PMH sick sinus syndrome with pacer, afib on warfarin, CHF, PAD, HTN, HLD, Hx. breast cancer, GERD here for concern back pain. Back pain -trialed tylenol tramadol lidocaine patch prednisone at home with limited benefit -patient admitted to med/tele -lumbar CT: degenerative changes -ordered dexamethasone, patient refused IV placement -ordered scheduled alternating tylenol and tramadol -ordered lidocaine patch -patient has MRI scheduled on sunday to rule out possible mets from breast cancer -ordered PT/OT GERD -continue protonix, pepcid Hx. Breast cancer -continue sulfasalazine, mercaptopurine Sick sinus syndrome, HTN, PAD -continue diltiazem, clonidine, plavix, metoprolol -continue warfarin -ordered cardiology consult to check pacer MRI compatibility HLD -continue rosuvastatin FENa: heart healthy Code Status: DNR/DNI DVT PPX: warfarin PT/OT: ordered Dispo: med/tele Radha Carrillo D.O. PGY 3, FCM (2) Atrial fibrillation, permanent: (3) Peripheral arterial disease: (4) Diastolic congestive heart failure: (5) On anticoagulant therapy: (6) Pacemaker: (7) HLD (hyperlipidemia): (8) GERD (gastroesophageal reflux disease): (9) HTN (hypertension): History of Present Illness Primary Care Provider: Ana Melgar MD 88yo Female with PMH sick sinus syndrome with pacer, afib on warfarin, CHF, PAD, HTN, HLD, Hx. breast cancer, GERD here for concern back pain. Patient states she had a kyphoplasty 30 years ago tolerated well. In last 10 days she noticed worsening back pain, does not recall inciting event, states it stays in her lower back a sharp pain worse when she moves. Denies any worsened lower extremity weakness or numbness, no change in bowel or bladder habits. Patient has been in ED 3 times over past week and seen her PCP for back pain, has trialed tylenol tramadol lidocaine patches at home with limited improvement, is scheduled for MRI back on sunday, has trialed prednisone taper 05/14. At baseline ambulates with walker, stastes pain is making walking more difficult.. Patient lives in the [facility] Allergies Allergy/AdvReac Type Severity Reaction Status Date / Time Penicillins Allergy Severe THROAT Verified 05/19/23 22:27 SWELLS, PASSES OUT aspirin Allergy Intermediate WELTS Verified 05/19/23 22:27 AROUND EYES Treutlen And Derivatives Allergy Mild Runny/stuffy Verified 05/19/23 22:27 nose grapefruit Allergy Mild Nasal Verified 05/19/23 22:27 Discharge lemon Allergy Mild Nasal Verified 05/19/23 22:27 Discharge [place] Allergy Mild Nasal Verified 05/19/23 22:27 Discharge orange Allergy Mild Nasal Verified 05/19/23 22:27 Discharge mayonnaise Allergy Unknown Unknown Verified 05/19/23 22:27 chicken derived AdvReac Intermediate DIARRHEA Verified 05/19/23 22:27 chocolate flavor AdvReac Intermediate DIARRHEA Verified 05/19/23 22:27 lactose AdvReac Intermediate GI upset Verified 05/19/23 22:27 Fpolneo-LZV-PqP Reductase AdvReac Intermediate DID NOT Verified 05/19/23 22:27 Inhibitor WORK [Vcnwlxf-Qfl-Bgt Reductase Inhibitor] grass pollen-perennial rye, AdvReac Mild RUNNY Verified 05/19/23 22:27 standar NOSE/SINUS ISSUES mushroom AdvReac Mild GI SYMPTOMS Verified 05/19/23 22:27 pollen extracts AdvReac Mild RUNNY Verified 05/19/23 22:27 NOSE/SINUS ISSUES soy AdvReac Mild GI SYMPTOMS Verified 05/19/23 22:27 lorazepam AdvReac Hallucinati Verified 05/19/23 22:27 ng Home Medications Medication Instructions Recorded Confirmed Type cyclosporine 0.05 % eye drops in a 1 drp OPB [facility] 11/23/20 05/19/23 History dropperette (Restasis) loratadine 10 mg tablet (Claritin) 10 mg PO HS PRN Allergy Symptoms 11/23/20 05/19/23 History calcium carb,cit ER 600 mg-vit D3 1 tab PO BIDM 04/07/21 05/19/23 History 12.5 mcg (500 unit) tablet,ext.rel (Citracal-D3 Slow Release) vitamins A,C,U-bizy-oltkkw 2,148 1 tab PO BIDM 04/07/21 05/19/23 History mcg-113 mg-45 mg-17.4 mg tablet (PreserVision AREDS) acetaminophen 325 mg tablet 650 mg PO Q4H PRN pain 07/19/21 05/19/23 History famotidine 20 mg tablet 20 mg PO HS #90 tabs 04/05/22 05/19/23 Rx pantoprazole 40 mg tablet,delayed 40 mg PO BIDM 12/26/22 05/19/23 History release furosemide 20 mg tablet 20 mg PO DAILY PRN Weight gain of 04/11/23 05/19/23 Rx 3 pounds over 24 hours #90 tabs potassium chloride 20 mEq 10 meq (1/2 x 20 mEq) PO DAILY PRN 04/11/23 05/19/23 Rx tablet,extended on day that Lasix is taken #90 tabs release(part/cryst) (Klor-Con M) warfarin 3 mg tablet See Rx Instructions .Route .COMPLEX 04/27/23 05/19/23 History clonidine HCl 0.1 mg tablet 0.1 mg PO HS 05/10/23 05/19/23 History cholecalciferol (vitamin D3) 50 50 mcg PO QAM 05/14/23 05/19/23 History mcg (2,000 unit) tablet (Vitamin D3) denosumab 60 mg/mL subcutaneous 60 mg subcut .Q 6 MONTHS 05/14/23 05/19/23 History syringe (Prolia) lidocaine 5 % topical patch 1 patch topical DAILY PRN pain #15 05/14/23 05/19/23 Rx ea mercaptopurine 50 mg tablet 75 mg PO DAILY 05/14/23 05/19/23 History multivit with min-folic 1 tab PO QAM 05/14/23 05/19/23 History acid-lutein 400 mcg-250 mcg chewable tablet (Centrum Silver) trazodone 50 mg tablet 25 mg PO HS 05/14/23 05/19/23 History tramadol 50 mg tablet 50 mg PO Q8H PRN pain #20 tabs 05/17/23 05/19/23 Rx clopidogrel 75 mg tablet (Plavix) 75 mg PO QAM 05/19/23 05/19/23 History diltiazem HCl 360 mg 360 mg PO QAM 05/19/23 05/19/23 History capsule,extended release 24 hr (Cardizem CD) doxycycline hyclate 100 mg capsule 100 mg PO DIRECTED PRN 1 HOUR 05/19/23 05/19/23 History PRIOR TO DENTAL WORK metoprolol succinate 200 mg 200 mg PO QAM 05/19/23 05/19/23 History tablet,extended release 24 hr rosuvastatin 5 mg tablet 5 mg PO QDD 05/19/23 05/19/23 History sulfasalazine 500 mg tablet 1,000 mg PO BIDM 05/19/23 05/19/23 History Past Med/Surg History Medical History Palliative care encounter Aspiration pneumonia Duodenal obstruction Left sided abdominal pain Vomiting Gastric outlet obstruction Acute pancreatitis Elevated INR Pancreatitis Small bowel obstruction Intermittent small bowel obstruction Lower extremity pain, left Paraesophageal hiatal hernia Unintentional weight loss per pt reason for colonoscopy On anticoagulant therapy warfarin/plavix daily Gastric ulcer Compression fracture of lumbar vertebra Osteoarthritis Ulcerative colitis "REMISSION" Facial basal cell cancer NOSE Breast cancer RT BREAST (SX AND RADIATION) 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 Generator changed out on 03/01/23. Stroke OVER 20 YEARS AGO (NO CURRENT PROBLEMS) Ulcerative colitis Sarcoidosis DX 1966 (LYMPH NODES AND LUNGS) HLD (hyperlipidemia) GERD (gastroesophageal reflux disease) Aortic stenosis SSS (sick sinus syndrome) (02/18/14) Incarcerated paraesophageal hernia Hypertensive urgency CHF (congestive heart failure) Breast cancer (08/27/15) "Abnormal right breast mammogram 08/01/2015 Status post biopsy 08/27/2015 10:00 lesion invasive ductal carcinoma, grade 1 Estrogen receptor positive, progesterone receptor negative, HER-2/quique negative 11:00 lesion invasive lobular carcinoma, grade 1 Estrogen receptor positive, progesterone receptor positive, HER-2/quique negative Status post lumpectomy and sentinel lymph node biopsy 09/27/2015 Lobular and ductal carcinoma Stage pT1b pN1a M0 Radiation therapy stopped 01/26/2016 received 3780 cGy. Treatments stopped early due to admission for compression fracture and inability to tolerate being in the treatment position" On 02/21/16 15:06 Frances Hogan wrote "Abnormal right breast mammogram 08/01/2015 Status post biopsy 08/27/2015 10:00 lesion invasive ductal carcinoma, grade 1 Estrogen receptor positive, progesterone receptor negative, HER-2/quique negative 11:00 lesion invasive lobular carcinoma, grade 1 Estrogen receptor positive, progesterone receptor positive, HER-2/quique negative Status post lumpectomy and sentinel lymph node biopsy 09/27/2015 Lobular and ductal carcinoma Stage pT1b pN1a M0" On 02/21/16 15:06 Frances Hogan wrote "Abnormal right breast mammogram 08/01/2015 Status post biopsy 08/27/2015 10:00 lesion invasive ductal carcinoma, grade 1 Estrogen receptor positive, progesterone receptor negative, HER-2/quique negative 11:00 lesion invasive lobular carcinoma, grade 1 Estrogen receptor positive, progesterone receptor positive, HER-2/quique negative Status post lumpectomy and sentinel lymph node biopsy 09/27/2015 Lobular and ductal carcinoma Stage pT1b pN1a M0 Status post radiation therapy, treatment stopped 01/26/2016 received 3780 cGy " On 10/14/15 13:28 Frances Hogan wrote "Abnormal right breast mammogram 08/01/2015 Status post biopsy 08/27/2015 10:00 lesion invasive ductal carcinoma, grade 1 Estrogen receptor positive, progesterone receptor negative, HER-2/quique negative 11:00 lesion invasive lobular carcinoma, grade 1 Estrogen receptor positive, progesterone receptor positive, HER-2/quique negative Status post lumpectomy and sentinel lymph node biopsy 09/27/2015 Lobular and ductal carcinoma Stage pT1b pN1a M0 " Atrial fibrillation on warfarin/plavix HTN (hypertension) CVA (cerebrovascular accident) Surgical History H/O total hysterectomy History of kyphoplasty History of esophagogastroduodenoscopy (EGD) History of colonoscopy History of herniorrhaphy History of appendectomy Hx of lumpectomy History of tooth extraction History of tonsillectomy and adenoidectomy History of cataract surgery Family History Brother Coronary heart disease Mother Coronary heart disease Benign essential HTN Myocardial infarction Stroke Other PVD (peripheral vascular disease) Denies family history of Ovarian cancer Prostate cancer Breast cancer Lung cancer Colorectal cancer Social History Smoking Status: Never smoker Second Hand Exposure: No; Do You Dip or Chew Tobacco: No; Hx Alcohol Use: No Hx Substance Use: No Preferred Language: Slovak Communication Ability: Effective Visual Impairment: Limited Hearing Ability: Normal Saddle [employer] Harness Maker Required: No Beliefs That Will Affect Care: None marital status: Single Current Living Situation: Other Current Living Situation Comment: "Independent living" at [facility] current occupational status: retired How many Children do You have: 1 Other Information That Helps Us Care for You: No Feels Safe at Home: Yes Safety Concerns: Feels Safe At This Time Childhood Exposure to Second-Hand Smoke: No caffeine: Yes (drinks soda ) Dental Care, Regularly: Yes Physical Activity Frequency: Daily Physical Activity Frequency Comment: walks daily Seatbelt Use: always Sunscreen Use: No Assistive Devices: Walker Physical Exam Constitutional: WD/WN, vitals as above Eyes: PERRL, conjunctivae normal, anicteric sclerae ENMT: external ear and nose normal, oropharynx normal Neck: trachea midline, no thyromegaly Respiratory: normal respiratory effort, lungs clear to auscultation Cardiovascular: Rate/Rhythm: + irregularly irregular Gastrointestinal (Abdomen): normal bowel sounds, soft, nontender, no hepatosplenomegaly Skin: no rashes, warm and dry Results & Data Results & Data Vital Signs (Past 12 Hours) Vital Signs Pulse Pulse Resp BP BP Pulse Ox O2 Del Method 05/20/23 00:27 84 174/81 H 05/20/23 00:11 94 H 05/19/23 23:00 74 05/19/23 21:25 87 16 166/93 H 97 Room Air Supervising Physician Co-Signing Physician Notes Attending addendum: I have physically seen this patient, have supervised the medical residents a ctivities, and agree with the H&P unless as otherwise noted. Assessment and Plan: Low back pain- Failure of outpatient treatment with Tylenol, tramadol, prednisone, and lidocaine patch CT lumbar spine with degeneration Dexamethasone 4 mg IV ordered, patient refused IV treatment Continue Tylenol and tramadol as noted Continue as noted Lidocaine patch Unable to perform MRI this evening due to presence of pacer Patient does have an outpatient MRI scheduled for 3 days If needs to have scan sooner, will need to have a cardiology and pacer rep available to place pacer and MRI compatible mode PT/OT consult Sick sinus syndrome/hypertension/PAD- Continue diltiazem, clonidine, Plavix, warfarin and metoprolol Cardiology consulted to verify MRI capability of pacer GERD- Continue pantoprazole and famotidine Resident Activity Tracking Resident Involvement: Resident Care Provided Care Provided: Adult [facility] Medicine (1) Back pain Back pain laterality: midline Back pain location: low back pain Chronicity: chronic Sciatica presence: without sciatica Qualified Code(s): M54.50 - Low back pain, unspecified; G89.29 - Other chronic pain (4) Diastolic congestive heart failure Heart failure chronicity: chronic Qualified Code(s): I50.32 - Chronic diastolic (congestive) heart failure (7) HLD (hyperlipidemia) Hyperlipidemia type: mixed hyperlipidemia Qualified Code(s): E78.2 - Mixed hyperlipidemia (9) HTN (hypertension) Hypertension type: essential hypertension Qualified Code(s): I10 - Essential (primary) hypertension
[2023-05-20] MEDS ORDERED: DEXAMETHASONE IV ONE (01:30)
[2023-05-20] MEDS ORDERED: cloNIDine HCL 0.1 MG TAB PO ONE (01:39)
[2023-05-20] MEDS ORDERED: POLYETHYLENE (MIRALAX) 17 GM PACK PO PRN (03:19)
[2023-05-20] MEDS: ACETAMINOPHEN 500 MG TAB PO SCH ×3 (04:20→20:03)
[2023-05-20 06:54] LABS: Hematocrit (blood only) 34.7 % (37.0-47.0); Hemoglobin 11.4 g/dl (12.0-16.0); Mean Corpuscular Hemoglobin 32.9 pg (25.0-34.0); Mean Corpuscular Hgb Conc 32.9 g/dL (32.0-36.0); Mean Corpuscular Volume 100.3 fL (80.0-100.0); Mean Platelet Volume 10.5 fL (9.4-12.4); Nucleated RBC # (auto) 0.03 K/uL (0.00-0.12); Nucleated RBC % (auto) 0.3 %; Platelet Count 413 K/uL (130-400); RDW Coefficient of Variation 18.2 % (11.5-14.5); RDW Standard Deviation 66.5 fL (36.4-46.3); Red Blood Count 3.46 M/uL (4.20-5.40); White Blood Count 9.34 K/ul (4.8-10.8)
[2023-05-20 07:18] LABS: BUN Creatinine Ratio 27.6 (10-20); Calcium 9.7 mg/dl (8.6-10.3); Creatinine Clr Calc Pharmacy 49.6 ml/min; Est GFR (African American) 94.7 ml/min; Est GFR (Non-African American) 81.7 ml/min; Potassium 3.7 mmol/L (3.5-5.1)
[2023-05-20 07:35] LABS: Prothrombin Time 72.1 Seconds (9.0-12.0)
[2023-05-20 07:42] LABS: INR 7.5 (0.9-1.1)
--- NOTE | 2023-05-20 08:41 | XRay Report ---
LUMBAR SPINE 5 VIEWS HISTORY: Low back pain COMPARISON: Lumbar spine CT 05/14/2023. FINDINGS: Multiple old compression deformities again noted within the lower thoracic and lumbar spine . These remain unchanged. This is most pronounced at the L4 level which demonstrates a moderate anter ior wedge-shaped compression deformity. Prior kyphoplasty set L2 and L5 again noted. The visualized s acrum is intact. No acute fractures within the lumbar spine. Degenerative changes again noted. Left-s ided dual-chamber pacemaker and a cardiac valve prosthesis are present. No subluxation. IMPRESSION: Chronic compression deformities and degenerative changes again noted. This is similar to the prior st udy. No acute fractures within the lumbar spine. ACT 112: Negative or not required by law. Electronically signed by: Sedrick Rodriguez M.D. 05/20/2023 8:40 AM
[2023-05-20] MEDS ORDERED: PHYTONADIONE 5 MG in DEXTROSE 5% 50 ML IV ONE (08:45)
[2023-05-20] MEDS ORDERED: ACETAMINOPHEN 500 MG TAB PO SCH (09:00)
[2023-05-20] MEDS: methylPREDNISolone 40 MG in SYRINGE 0 ML IV SCH ×2 (10:07→18:17)
[2023-05-20] MEDS: CLOPIDOGREL BISULFATE 75 MG TAB PO SCH (10:07)
[2023-05-20] MEDS: METOPROLOL SUCC 50MG EXT REL TAB PO SCH (10:07)
[2023-05-20] MEDS: sulfaSALAzine 500 MG TABLET PO SCH ×2 (10:08→18:18)
[2023-05-20] MEDS: PANTOprazole 40 MG TAB PO SCH ×2 (10:08→18:18)
[2023-05-20] MEDS: dilTIAZem HCL 180 MG CAPCR PO SCH (10:08)
[2023-05-20] MEDS: LIDOCAINE 5% 1 PATCH TD SCH (10:09)
[2023-05-20] MEDS: MERCAPTOPURINE 50 MG TAB PO SCH (10:09)
[2023-05-20] MEDS: traMADol HCL 50 MG TABLET PO SCH ×2 (10:11→16:37)
--- NOTE | 2023-05-20 12:36 | Hospitalist Progress Note ---
Date of Service May 20, 2023 Assessment & Plan (1) Acute exacerbation of chronic low back pain: Plan: Supportive care. Pain control measures. Parenteral steroid therapy. (2) Atrial fibrillation, permanent: Plan: Stable. Continue current medical management for rate control. Permanent cardiac pacemaker is in place. Coumadin is on hold temporarily (3) Coumadin toxicity: Plan: INR 7.5 on admission. Coumadin is on hold. Vitamin K has been ordered parenterally. Serial labs. No evidence of bleeding at this time Plan OT and PT assessments are pending. She probably will need placement at the time of discharge. Admission and Anticipated Discharge Date Admission Date: May 20, 2023 Subjective Alert and oriented. No acute problems. OT and PT assessments have been ordered. Will treat her back pain with parenteral steroids for now. She has evidence of Coumadin toxicity on admission with INR 7.5. Coumadin is now on hold and parenteral vitamin K has been ordered. She probably will need rehab placement at discharge. Review of Systems 2 Review of Systems: Constitutional-no fever or chills ENT-no blurred vision, no double vision, no epistaxis, no sore throat Respiratory-no cough, no wheezing, no shortness of breath Cardiac-no palpitations, no chest pain, no syncope GI-no nausea, vomiting, diarrhea, melena, hematochezia -no urinary retention, no urinary incontinence, no dysuria, no hematuria Musculoskeletal-lumbar area pain. Skin-no bruising, no rashes, no pruritus Neuro-generalized weakness more pronounced in both legs. Psych-no depression, no anxiety Physical Exam 2 Physical Exam: General-alert and oriented x3, no fevers, no chills HEENT-head atraumatic and normocephalic, pupils equal and reactive to light, extraocular muscles intact Neck-no lymphadenopathy or thyromegaly, trachea midline Chest-clear to auscultation percussion. No rales wheezing or rhonchi Cardiac-regular rate and rhythm, normal S1 and S2 Abdomen-normal bowel sounds, nontender, no hepatosplenomegaly Extremities-no cyanosis, clubbing, or edema Musculoskeletallumbar area tenderness Neuro-cranial nerves II through XII intact, motor and sensory function within normal limits, strength symmetrical with generalized weakness, no focal deficits Psych-normal affect, normal mood Results & Data Results & Data Vital Signs (Past 12 Hours) Vital Signs Temp Pulse Resp BP Pulse Ox O2 Del Method 05/20/23 11:20 36.8 C 99 H 18 175/84 H 94 Room Air 05/20/23 07:49 36.7 C 96 H 18 165/117 H 94 Room Air 05/20/23 03:30 174/101 H 05/20/23 03:00 173/102 H 05/20/23 02:45 36.1 C L 86 18 182/102 H 97 Room Air 05/20/23 02:01 87 201/115 H 05/20/23 01:35 78 199/82 H Laboratory Results 05/20/23 06:38 05/20/23 06:38 PG Care Time/CCT Total # of Minutes Spent Total Time Spent with Patient: Total time spent is greater than 50% in coordination of care (as documented) at patient's floor/unit and/or counseling patient: Coding Level of Care Code 03182 SUB INP/OBS CARE 3/50MIN Diagnoses Acute exacerbation of chronic low back pain M54.50; G89.29 Atrial fibrillation, permanent I48.21 Coumadin toxicity T45.511A
[2023-05-20] MEDS: ROSUVASTATIN CALCIUM 5 MG TAB PO SCH (16:27)
--- NOTE | 2023-05-20 19:52 | Billing Data ---
Date of Service May 20, 2023 Coding Level of Care Code 17476 INT INP/OBS CARE
[2023-05-20] MEDS: traZODone HCL 50 MG TAB PO SCH (20:03)
[2023-05-20] MEDS: cloNIDine HCL 0.1 MG TAB PO SCH (20:03)
[2023-05-20] MEDS: FAMOTIDINE 20 MG TAB PO SCH (20:03)
[2023-05-21] MEDS: traMADol HCL 50 MG TABLET PO SCH ×3 (00:21→16:56)
[2023-05-21] MEDS: methylPREDNISolone 40 MG in SYRINGE 0 ML IV SCH ×3 (00:22→16:40)
[2023-05-21] MEDS: ACETAMINOPHEN 500 MG TAB PO SCH ×3 (03:15→20:12)
--- NOTE | 2023-05-21 06:32 | Electrocardiogram Report ---
Test Reason : Blood Pressure : / mmHG Vent. Rate : 091 BPM Atrial Rate : 088 BPM P-R Int : 000 ms QRS Dur : 150 ms QT Int : 400 ms P-R-T Axes : 000 -70 110 degrees QTc Int : 492 ms Atrial fibrillation Left axis deviation Left bundle branch block Abnormal ECG When compared with ECG of 15-JAN-2023 17:48, Electronic ventricular pacemaker is no longer Present Confirmed by Lacho Bedolla ([id number]) on 05/21/2023 6:31:51 AM Referred By: REFERRED SELF Confirmed By:Lacho Bedolla
[2023-05-21 07:19] LABS: Basophils # (auto) 0.01 K/uL (0.00-0.20); Basophils % (auto) 0.1 %; Hematocrit (blood only) 36.6 % (37.0-47.0); Hemoglobin 12.3 g/dl (12.0-16.0); Immature Granulocytes # (auto) 0.04 K/uL (0.01-0.20); Immature Granulocytes % (auto) 0.5 %; Lymphocytes # (auto) 0.41 K/uL (1.20-3.40); Lymphocytes % (auto) 4.7 %; Mean Corpuscular Hemoglobin 33.2 pg (25.0-34.0); Mean Corpuscular Hgb Conc 33.6 g/dL (32.0-36.0); Mean Corpuscular Volume 98.9 fL (80.0-100.0); Mean Platelet Volume 10.7 fL (9.4-12.4); Monocytes # (auto) 0.55 K/uL (0.11-0.59); Monocytes % (auto) 6.3 %; Neutrophils # (auto) 7.73 K/uL (1.40-6.50); Neutrophils % (auto) 88.4 %; Nucleated RBC # (auto) 0.02 K/uL (0.00-0.12); Nucleated RBC % (auto) 0.2 %; Platelet Count 460 K/uL (130-400); RDW Coefficient of Variation 17.7 % (11.5-14.5); RDW Standard Deviation 63.7 fL (36.4-46.3); White Blood Count 8.74 K/ul (4.8-10.8)
[2023-05-21 07:33] LABS: BUN Creatinine Ratio 26.7 (10-20); Calcium 9.8 mg/dl (8.6-10.3); Creatinine Clr Calc Pharmacy 53.5 ml/min; Est GFR (African American) 93.7 ml/min; Est GFR (Non-African American) 80.8 ml/min; Potassium 4.1 mmol/L (3.5-5.1)
[2023-05-21 07:45] LABS: INR 1.1 (0.9-1.1); Prothrombin Time 11.8 Seconds (9.0-12.0)
[2023-05-21] MEDS: PANTOprazole 40 MG TAB PO SCH ×2 (08:23→16:41)
[2023-05-21] MEDS: sulfaSALAzine 500 MG TABLET PO SCH ×2 (08:23→16:42)
[2023-05-21] MEDS: MERCAPTOPURINE 50 MG TAB PO SCH (08:25)
[2023-05-21] MEDS: CLOPIDOGREL BISULFATE 75 MG TAB PO SCH (08:27)
[2023-05-21] MEDS: dilTIAZem HCL 180 MG CAPCR PO SCH (08:27)
[2023-05-21] MEDS: METOPROLOL SUCC 50MG EXT REL TAB PO SCH (08:28)
[2023-05-21] MEDS: LIDOCAINE 5% 1 PATCH TD SCH (08:30)
--- NOTE | 2023-05-21 14:57 | Hospitalist Progress Note ---
Date of Service May 21, 2023 Assessment & Plan (1) Acute exacerbation of chronic low back pain: Plan: Supportive care. Pain control measures. Parenteral steroid therapy. Improved. Oral prednisone taper at the time of discharge (2) Atrial fibrillation, permanent: Plan: Stable. Continue current medical management for rate control. Permanent cardiac pacemaker is in place. Coumadin was held on admission due to elevated INR but has been restarted. (3) Coumadin toxicity: Plan: INR 7.5 on admission. Coumadin held and vitamin K administered. INR down to 1.1 today, May 21. Coumadin has been restarted and INR will be monitored daily. Plan OT and PT assessments are pending. She probably will need placement at the time of discharge. She will be placed on a prednisone oral tapering dose at the time of discharge Admission and Anticipated Discharge Date Admission Date: May 20, 2023 Subjective Alert and oriented. She looks and feels better. Family is in attendance. INR down to 1.1 after vitamin K. Coumadin has been restarted. She remains on parenteral Solu-Medrol. This will be switched to an oral prednisone tapering dose at the time of discharge. OT and PT assessments pending to determine if she will need placement which she probably will. Review of Systems 2 Review of Systems: Constitutional-no fever or chills ENT-no blurred vision, no double vision, no epistaxis, no sore throat Respiratory-no cough, no wheezing, no shortness of breath Cardiac-no palpitations, no chest pain, no syncope GI-no nausea, vomiting, diarrhea, melena, hematochezia -no urinary retention, no urinary incontinence, no dysuria, no hematuria Musculoskeletal-lumbar area pain. Skin-no bruising, no rashes, no pruritus Neuro-generalized weakness more pronounced in both legs. Psych-no depression, no anxiety Physical Exam 2 Physical Exam: General-alert and oriented x3, no fevers, no chills HEENT-head atraumatic and normocephalic, pupils equal and reactive to light, extraocular muscles intact Neck-no lymphadenopathy or thyromegaly, trachea midline Chest-clear to auscultation percussion. No rales wheezing or rhonchi Cardiac-regular rate and rhythm, normal S1 and S2 Abdomen-normal bowel sounds, nontender, no hepatosplenomegaly Extremities-no cyanosis, clubbing, or edema Musculoskeletallumbar area tenderness Neuro-cranial nerves II through XII intact, motor and sensory function within normal limits, strength symmetrical with generalized weakness, no focal deficits Psych-normal affect, normal mood Results & Data Results & Data Vital Signs (Past 12 Hours) Vital Signs Temp Pulse Pulse Resp BP Pulse Ox O2 Del Method 05/21/23 12:26 36.7 C 80 19 138/78 96 Room Air 05/21/23 08:08 36.8 C 105 H 20 163/103 H 97 Room Air 05/21/23 07:47 109 H 05/21/23 03:09 37.5 C 100 H 20 137/97 96 Room Air Laboratory Results 05/21/23 06:35 05/21/23 06:35 PG Care Time/CCT Total # of Minutes Spent Total Time Spent with Patient: Total time spent is greater than 50% in coordination of care (as documented) at patient's floor/unit and/or counseling patient: Coding Level of Care Code 65877 SUB INP/OBS CARE 3/50MIN Diagnoses Acute exacerbation of chronic low back pain M54.50; G89.29 Atrial fibrillation, permanent I48.21 Coumadin toxicity T45.511A
[2023-05-21] MEDS ORDERED: WARFARIN SOD 3 MG TAB PO SCH (16:00)
[2023-05-21] MEDS: ROSUVASTATIN CALCIUM 5 MG TAB PO SCH (16:41)
[2023-05-21] MEDS: WARFARIN SOD 3 MG TAB PO SCH (16:42)
[2023-05-21] MEDS: FAMOTIDINE 20 MG TAB PO SCH (20:12)
[2023-05-21] MEDS: traZODone HCL 50 MG TAB PO SCH (20:13)
[2023-05-21] MEDS: cloNIDine HCL 0.1 MG TAB PO SCH (20:13)
[2023-05-22] MEDS: traMADol HCL 50 MG TABLET PO SCH ×4 (00:51→23:20)
[2023-05-22] MEDS: methylPREDNISolone 40 MG in SYRINGE 0 ML IV SCH (01:49)
[2023-05-22] MEDS: ACETAMINOPHEN 500 MG TAB PO SCH ×3 (04:37→20:25)
[2023-05-22] MEDS: CLOPIDOGREL BISULFATE 75 MG TAB PO SCH (07:55)
[2023-05-22] MEDS: LIDOCAINE 5% 1 PATCH TD SCH (07:55)
[2023-05-22] MEDS: dilTIAZem HCL 180 MG CAPCR PO SCH (07:56)
[2023-05-22] MEDS: MERCAPTOPURINE 50 MG TAB PO SCH (07:56)
[2023-05-22] MEDS: METOPROLOL SUCC 50MG EXT REL TAB PO SCH (07:56)
[2023-05-22] MEDS: PANTOprazole 40 MG TAB PO SCH ×2 (07:57→15:45)
[2023-05-22] MEDS: sulfaSALAzine 500 MG TABLET PO SCH ×2 (07:57→15:45)
[2023-05-22 08:00] LABS: Basophils # (auto) 0.01 K/uL (0.00-0.20); Basophils % (auto) 0.1 %; Hematocrit (blood only) 37.6 % (37.0-47.0); Hemoglobin 13.1 g/dl (12.0-16.0); Immature Granulocytes # (auto) 0.07 K/uL (0.01-0.20); Immature Granulocytes % (auto) 0.5 %; Lymphocytes # (auto) 0.53 K/uL (1.20-3.40); Mean Corpuscular Hemoglobin 33.6 pg (25.0-34.0); Mean Corpuscular Hgb Conc 34.8 g/dL (32.0-36.0); Mean Corpuscular Volume 96.4 fL (80.0-100.0); Mean Platelet Volume 10.6 fL (9.4-12.4); Monocytes # (auto) 2.18 K/uL (0.11-0.59); Monocytes % (auto) 16.6 %; Neutrophils # (auto) 10.32 K/uL (1.40-6.50); Neutrophils % (auto) 78.8 %; Nucleated RBC # (auto) 0.04 K/uL (0.00-0.12); Nucleated RBC % (auto) 0.3 %; Platelet Count 517 K/uL (130-400); RDW Coefficient of Variation 17.8 % (11.5-14.5); RDW Standard Deviation 62.6 fL (36.4-46.3); White Blood Count 13.11 K/ul (4.8-10.8)
[2023-05-22 08:16] LABS: BUN Creatinine Ratio 41.5 (10-20); Calcium 9.7 mg/dl (8.6-10.3); Creatinine Clr Calc Pharmacy 49.4 ml/min; Est GFR (African American) 91.2 ml/min; Est GFR (Non-African American) 78.7 ml/min; Potassium 4.4 mmol/L (3.5-5.1)
[2023-05-22 08:27] LABS: INR 1.1 (0.9-1.1); Prothrombin Time 11.6 Seconds (9.0-12.0)
[2023-05-22] MEDS ORDERED: DIGOXIN 0.25 MG TAB PO ONE (10:00)
[2023-05-22] MEDS: predniSONE 10 MG TABLET PO SCH ×2 (13:22→20:25)
--- NOTE | 2023-05-22 15:10 | Hospitalist Progress Note ---
Date of Service May 22, 2023 Assessment & Plan (1) Acute exacerbation of chronic low back pain: Plan: Supportive care. Pain control measures. Parenteral steroid therapy has been switched to oral prednisone and will be taken in a tapering dose fashion until it is discontinued. Improved. (2) Atrial fibrillation, permanent: Plan: Stable. Continue current medical management for rate control. Permanent cardiac pacemaker is in place. Coumadin was held on admission due to elevated INR but has been restarted. (3) Coumadin toxicity: Plan: INR 7.5 on admission. Coumadin held and vitamin K administered. INR down to 1.1 on May 21 and remains the same today, May 22. Coumadin has been restarted and INR will be monitored daily. (4) Sundowning: Plan: Occurred May 21 p.m. She is now on Seroquel at bedtime Plan OT and PT assessments are pending. She probably will need placement at the time of discharge. She is now medically stable for discharge Admission and Anticipated Discharge Date Admission Date: May 20, 2023 Subjective Alert and oriented. No new problems. Son is at the bedside. She is ambulating with a walker. She did have some owning psychosis last evening. Will administer Seroquel 25 mg at bedtime. Parenteral steroid therapy has been switched to oral prednisone and will be tapered off gradually. Review of Systems 2 Review of Systems: Constitutional-no fever or chills ENT-no blurred vision, no double vision, no epistaxis, no sore throat Respiratory-no cough, no wheezing, no shortness of breath Cardiac-no palpitations, no chest pain, no syncope GI-no nausea, vomiting, diarrhea, melena, hematochezia -no urinary retention, no urinary incontinence, no dysuria, no hematuria Musculoskeletal-lumbar area pain. Skin-no bruising, no rashes, no pruritus Neuro-generalized weakness more pronounced in both legs. Psych-no depression, no anxiety Physical Exam 2 Physical Exam: General-alert and oriented x3, no fevers, no chills HEENT-head atraumatic and normocephalic, pupils equal and reactive to light, extraocular muscles intact Neck-no lymphadenopathy or thyromegaly, trachea midline Chest-clear to auscultation percussion. No rales wheezing or rhonchi Cardiac-regular rate and rhythm, normal S1 and S2 Abdomen-normal bowel sounds, nontender, no hepatosplenomegaly Extremities-no cyanosis, clubbing, or edema Musculoskeletallumbar area tenderness Neuro-cranial nerves II through XII intact, motor and sensory function within normal limits, strength symmetrical with generalized weakness, no focal deficits Psych-normal affect, normal mood Results & Data Results & Data Vital Signs (Past 12 Hours) Vital Signs Temp Pulse Pulse Resp BP Pulse Ox O2 Del Method 05/22/23 11:31 Room Air 05/22/23 11:23 98 H 05/22/23 11:16 36.4 C L 98 H 18 120/81 95 Room Air 05/22/23 08:00 81 05/22/23 07:52 36.1 C L 109 H 20 171/92 H 97 Room Air Laboratory Results 05/22/23 07:17 05/22/23 07:17 PG Care Time/CCT Total # of Minutes Spent Total Time Spent with Patient: Total time spent is greater than 50% in coordination of care (as documented) at patient's floor/unit and/or counseling patient: Coding Level of Care Code 02514 SUB INP/OBS CARE 3/50MIN Diagnoses Acute exacerbation of chronic low back pain M54.50; G89.29 Atrial fibrillation, permanent I48.21 Coumadin toxicity T45.511A F0
[2023-05-22] MEDS: WARFARIN SOD 3 MG TAB PO SCH (15:45)
[2023-05-22] MEDS: ROSUVASTATIN CALCIUM 5 MG TAB PO SCH (15:45)
[2023-05-22] MEDS: FAMOTIDINE 20 MG TAB PO SCH (20:25)
[2023-05-22] MEDS: cloNIDine HCL 0.1 MG TAB PO SCH (20:28)
[2023-05-22] MEDS: traZODone HCL 50 MG TAB PO SCH (20:28)
[2023-05-23] MEDS: ACETAMINOPHEN 500 MG TAB PO SCH ×2 (03:57→13:13)
[2023-05-23] MEDS ORDERED: ONDANSETRON 4 MG OD TAB PO PRN (04:09)
[2023-05-23 06:23] LABS: BUN Creatinine Ratio 48.6 (10-20); Calcium 9.9 mg/dl (8.6-10.3); Creatinine Clr Calc Pharmacy 44.6 ml/min; Est GFR (African American) 86.1 ml/min; Est GFR (Non-African American) 74.3 ml/min; Potassium 3.6 mmol/L (3.5-5.1)
[2023-05-23] MEDS: dilTIAZem HCL 180 MG CAPCR PO SCH (06:29)
[2023-05-23] MEDS: METOPROLOL SUCC 50MG EXT REL TAB PO SCH (06:29)
[2023-05-23 06:38] LABS: Basophils # (auto) 0.03 K/uL (0.00-0.20); Basophils % (auto) 0.2 %; Hematocrit (blood only) 38.1 % (37.0-47.0); Immature Granulocytes # (auto) 0.17 K/uL (0.01-0.20); Lymphocytes # (auto) 0.51 K/uL (1.20-3.40); Lymphocytes % (auto) 3.1 %; Mean Corpuscular Hemoglobin 33.4 pg (25.0-34.0); Mean Corpuscular Hgb Conc 34.1 g/dL (32.0-36.0); Mean Corpuscular Volume 97.9 fL (80.0-100.0); Mean Platelet Volume 10.7 fL (9.4-12.4); Monocytes # (auto) 2.54 K/uL (0.11-0.59); Monocytes % (auto) 15.5 %; Neutrophils # (auto) 13.12 K/uL (1.40-6.50); Neutrophils % (auto) 80.2 %; Nucleated RBC # (auto) 0.03 K/uL (0.00-0.12); Nucleated RBC % (auto) 0.2 %; Platelet Count 479 K/uL (130-400); RDW Coefficient of Variation 17.2 % (11.5-14.5); RDW Standard Deviation 61.6 fL (36.4-46.3); Red Blood Count 3.89 M/uL (4.20-5.40); White Blood Count 16.37 K/ul (4.8-10.8)
[2023-05-23 06:49] LABS: INR 1.1 (0.9-1.1); Prothrombin Time 12.4 Seconds (9.0-12.0)
[2023-05-23] MEDS ORDERED: METOPROLOL TARTRATE 1 MG/ML VIAL IV STA (09:13)
[2023-05-23] MEDS ORDERED: hydrALAZINE HCL 20 MG/ML VIAL IV PRN (09:34)
[2023-05-23] MEDS: MERCAPTOPURINE 50 MG TAB PO SCH (09:57)
[2023-05-23] MEDS: traMADol HCL 50 MG TABLET PO SCH (09:57)
[2023-05-23] MEDS: sulfaSALAzine 500 MG TABLET PO SCH (09:58)
[2023-05-23] MEDS: predniSONE 10 MG TABLET PO SCH ×2 (09:58→14:35)
[2023-05-23] MEDS: CLOPIDOGREL BISULFATE 75 MG TAB PO SCH (09:58)
[2023-05-23] MEDS: LIDOCAINE 5% 1 PATCH TD SCH (09:59)
[2023-05-23] MEDS: PANTOprazole 40 MG TAB PO SCH (09:59)
[2023-05-23] MEDS ORDERED: SODIUM CHLORIDE 0.9% 1,000 ML IV SCH (11:45)
[2023-05-23] MEDS: MoRPHine SULFATE 2 MG/ML CARP IV PRN ×6 (12:00→23:32)
[2023-05-23] MEDS: SODIUM CHLORIDE 0.9% 1,000 ML IV SCH (12:29)
[2023-05-23] MEDS ORDERED: hydrALAZINE 10 MG TAB PO SCH (13:00)
--- NOTE | 2023-05-23 13:31 | CT Scan Report ---
ABDOMEN AND PELVIS CT WITHOUT CONTRAST CT DOSE: 570.11 mGy.cm HISTORY: Acute generalized abdominal pain with reported ileus. ileus , pain TECHNIQUE: Multiaxial CT images of the abdomen and pelvis were performed without contrast. A dose lo wering technique was utilized adhering to the principles of ALARA. COMPARISON STUDY: CT abdomen and pelvis 01/15/2023, CT lumbar spine 05/14/2023 FINDINGS: Cardiomegaly with partially imaged pacer leads. Aortic valvular and graft. Extensive coronary artery calcification s. Trace left and small right pleural effusion. Left basilar pleural calcifications. Mild subsegmenta l bibasilar atelectasis. No free air. Limited exam secondary to positioning, respiratory motion artifact and lack of contrast. Unchanged ap pearance of the lobular spleen with calcified granulomata. Few scattered calcifications of the liver are also again noted. Unchanged appearance of the mildly distended gallbladder. Atrophic pancreas wit h scattered calcifications compatible with chronic pancreatitis. Unchanged nodular thickening of the left adrenal gland. The right adrenal gland is within normal limits. Cortical thinning of the kidneys. There are a few calcifications of the left kidney again noted measu ring up to 5 mm. No ureteral calculi or hydronephrosis. Left posterior lateral urinary bladder divert iculum. Atherosclerosis of the aorta with fusiform dilation of the infrarenal segment measuring up to 2.4 cm. No lymphadenopathy identified. Fluid-filled distal esophagus. Tiny hiatal hernia. Moderate to extensive fecal retention with rectal wall thickening again noted. Colonic diverticulosis. Stool-filled loops of ileum are noted within the lower abdomen and pelvis. No definite small bowel obstruction. Mild generalized body wall edema. Deg enerative changes of the spine, pelvis and hips. Chronic thoracolumbar compression deformities with l umbar kyphoplasty changes. Sigmoidal thoracolumbar scoliosis. Sclerotic appearance of the left iliac bone image 179 is unchanged from 05/14/2023 however is new from 01/15/2023 and demonstrates mild perio steal thickening. IMPRESSION: 1. Constipation with findings suggestive of mild stercoral proctitis. 2. No bowel obstruction or pneumoperitoneum. 3. Sclerotic changes of the left posterior iliac bone with periosteal thickening is similar in appear ance to the study from 05/14/2023 however is new from 01/15/2023. Findings could be correlated with a follow-up bone scan. 4. Chronic thoracolumbar compression deformities redemonstrated. 5. Unchanged left renal calcifications. No ureteral calculi or hydronephrosis. 6. Trace left and small right pleural effusions. 7. Additional findings as above. ACT 112: Negative or not required by law. The above report was generated using voice recognition software. It may contain grammatical, syntax o r spelling errors. Electronically signed by: Pedro Garcia M.D. 05/23/2023 1:29 PM
[2023-05-23] MEDS ORDERED: STAT IV Infusion **Titration per Protocol STA (14:47)
[2023-05-23] MEDS: dilTIAZem HCL 125 MG in DEXTROSE 5% 100 ML IV SCH ×2 (15:19→23:41)
--- NOTE | 2023-05-23 15:58 | Hospitalist Progress Note ---
Date of Service May 23, 2023 Assessment & Plan (1) Ileus: Plan: With severe diffuse abdominal pain. Findings are suspicious for ischemic gut. Emergent abdominal pelvic CT scan is unremarkable. She is now n.p.o. and on IV fluids. Parenteral pain control measures are ordered (2) Acute exacerbation of chronic low back pain: Plan: Supportive care. Pain control measures. Parenteral steroid therapy. (3) Atrial fibrillation, permanent: Plan: Rapid ventricular rate noted. She is now NPO. She has been transferred to PCU for infusion of diltiazem drip for rate control. Permanent cardiac pacemaker is in place. Coumadin was held on admission due to elevated INR but was restarted but is now again on hold (4) Coumadin toxicity: Plan: INR 7.5 on admission. Coumadin held and vitamin K administered. INR down to 1.1 on May 21 and remains the same today, May 22. Coumadin was restarted but is now on hold again due to n.p.o. status (5) owning: Plan: Occurred May 21 p.m. Will use IM Zyprexa as needed. Seroquel was ordered at bedtime but is now on hold Plan To be determined Admission and Anticipated Discharge Date Admission Date: May 20, 2023 Subjective The patient developed severe abdominal pain today and ileus. Findings are very suspicious for ischemic bowel. Abdomen pelvic CT scan was unremarkable. She has been transferred to a floor where she can receive diltiazem infusion for control of her atrial fibrillation. She is now n.p.o. IV hydralazine ordered for blood pressure control. Lactic acid level is pending. Review of Systems 2 Review of Systems: Constitutional-no fever or chills ENT-no blurred vision, no double vision, no epistaxis, no sore throat Respiratory-no cough, no wheezing, no shortness of breath Cardiac-no palpitations, no chest pain, no syncope GI-nausea. No vomiting. No melena or hematochezia -no urinary retention, no urinary incontinence, no dysuria, no hematuria Musculoskeletal-lumbar area pain. Skin-no bruising, no rashes, no pruritus Neuro-generalized weakness more pronounced in both legs. Psych-no depression, no anxiety Physical Exam 2 Physical Exam: General-alert and oriented x3, no fevers, no chills HEENT-head atraumatic and normocephalic, pupils equal and reactive to light, extraocular muscles intact Neck-no lymphadenopathy or thyromegaly, trachea midline Chest-clear to auscultation percussion. No rales wheezing or rhonchi Cardiac-regular rate and rhythm, normal S1 and S2 Abdomen-absent bowel sounds. Diffuse tenderness with guarding. No palpable masses Extremities-no cyanosis, clubbing, or edema Musculoskeletallumbar area tenderness Neuro-cranial nerves II through XII intact, motor and sensory function within normal limits, strength symmetrical with generalized weakness, no focal deficits Psych-depressed affect Results & Data Results & Data Vital Signs (Past 12 Hours) Vital Signs Temp Pulse Pulse Resp BP BP Pulse Ox 05/23/23 14:40 117 H 05/23/23 14:15 163 H 157/99 H 05/23/23 11:34 169/121 H 05/23/23 11:14 36.4 C L 131 H 16 180/97 H 97 05/23/23 10:39 117 H 05/23/23 09:59 97 H 148/106 H 05/23/23 09:40 127 H 152/122 H 05/23/23 09:03 121 H 203/112 H 05/23/23 08:15 208/93 H 05/23/23 08:11 35.9 C L 125 H 16 168/103 H 95 05/23/23 06:24 36.8 C 135 H 16 186/93 H 95 05/23/23 04:11 36.7 C 98 H 18 161/89 H 94 O2 Del Method 05/23/23 14:40 05/23/23 14:15 05/23/23 11:34 05/23/23 11:14 Room Air 05/23/23 10:39 05/23/23 09:59 05/23/23 09:40 05/23/23 09:03 05/23/23 08:15 05/23/23 08:11 Room Air 05/23/23 06:24 Room Air 05/23/23 04:11 Room Air Laboratory Results 05/23/23 05:41 05/23/23 05:41 PG Care Time/CCT Total # of Minutes Spent Total Time Spent with Patient: Total time spent is greater than 50% in coordination of care (as documented) at patient's floor/unit and/or counseling patient: Coding Level of Care Code 11680 SUB INP/OBS CARE 50MIN Diagnoses Ileus K56.7 Acute exacerbation of chronic low back pain M54.50; G89.29 Atrial fibrillation, permanent I48.21 Coumadin toxicity T45.511A
[2023-05-23] MEDS ORDERED: OLANZapine 10 MG/2.1 ML SDV IM PRN (16:01)
[2023-05-23] MEDS: metroNIDAZOLE 500 MG/100 ML BAG IV SCH (18:12)
[2023-05-23] MEDS: CIPROFLOXACIN / D5W 400 MG/200 ML BAG IV SCH (19:22)
[2023-05-23] MEDS: PANTOprazole 40 MG in SYRINGE 0 ML IV SCH (21:00)
[2023-05-23] MEDS: HEPARIN SOD 5,000 UNIT/0.5 ML VIAL SQ SCH (22:25)
[2023-05-24] MEDS: metroNIDAZOLE 500 MG/100 ML BAG IV SCH ×2 (01:58→08:16)
[2023-05-24] MEDS: SODIUM CHLORIDE 0.9% 1,000 ML IV SCH ×2 (01:58→10:07)
[2023-05-24] MEDS: MoRPHine SULFATE 2 MG/ML CARP IV PRN ×6 (03:46→16:09)
[2023-05-24] MEDS: CIPROFLOXACIN / D5W 400 MG/200 ML BAG IV SCH (05:35)
[2023-05-24] MEDS: dilTIAZem HCL 125 MG in DEXTROSE 5% 100 ML IV SCH ×2 (07:50→08:41)
[2023-05-24 07:53] LABS: Hematocrit (blood only) 38.4 % (37.0-47.0); Hemoglobin 13.2 g/dl (12.0-16.0); Mean Corpuscular Hemoglobin 34.3 pg (25.0-34.0); Mean Corpuscular Hgb Conc 34.4 g/dL (32.0-36.0); Mean Corpuscular Volume 99.7 fL (80.0-100.0); Mean Platelet Volume 11.2 fL (9.4-12.4); Nucleated RBC # (auto) 0.04 K/uL (0.00-0.12); Nucleated RBC % (auto) 0.2 %; Platelet Count 313 K/uL (130-400); RDW Coefficient of Variation 18.3 % (11.5-14.5); RDW Standard Deviation 66.4 fL (36.4-46.3); Red Blood Count 3.85 M/uL (4.20-5.40); White Blood Count 19.81 K/ul (4.8-10.8)
[2023-05-24 08:04] LABS: Albumin Globulin Ratio 1.2 (0.9-2); Albumin Level 3.3 gm/dl (3.4-5.0); BUN Creatinine Ratio 45.2 (10-20); Bilirubin,Total 0.9 mg/dl (0.2-1.0); Calcium 9.3 mg/dl (8.6-10.3); Creatinine Clr Calc Pharmacy 46.4 ml/min; Est GFR (African American) 92.7 ml/min; Est GFR (Non-African American) 79.9 ml/min; Globulin 2.8 gm/dl (2.5-4.0); Potassium 4.3 mmol/L (3.5-5.1); Total Protein 6.1 gm/dl (6.0-8.3)
[2023-05-24 08:08] LABS: INR 1.8 (0.9-1.1); Prothrombin Time 18.9 Seconds (9.0-12.0)
[2023-05-24] MEDS: HEPARIN SOD 5,000 UNIT/0.5 ML VIAL SQ SCH (08:16)
[2023-05-24 08:30] LABS: Basophils # (auto) 0.07 K/uL (0.00-0.20); Basophils % (auto) 0.4 %; Dohle Bodies 2+; Echinocytes 2+; Lymphocytes # (auto) 0.28 K/uL (1.20-3.40); Lymphocytes % (auto) 1.4 %; Monocytes # (auto) 1.59 K/uL (0.11-0.59); Neutrophils # (auto) 17.67 K/uL (1.40-6.50); Neutrophils % (auto) 89.2 %; Polychromasia 1+; Schistocytes 1+; Toxic Vacuolation 1+
[2023-05-24] MEDS: PANTOprazole 40 MG in SYRINGE 0 ML IV SCH (08:50)
[2023-05-24 11:15] VITALS: RESP 20; O2SAT 95
--- NOTE | 2023-05-24 13:51 | Hospitalist Progress Note ---
Date of Service May 24, 2023 Assessment & Plan (1) Ileus: Plan: She continues with severe diffuse abdominal pain. Both white blood cell count and lactate levels have increased. Findings are suspicious for ischemic gut. Emergent abdominal pelvic CT scan was unremarkable. Continue n.p.o. status and IV fluids. She is on Cipro and Flagyl. Parenteral pain control measures. Supportive care (2) Acute exacerbation of chronic low back pain: Plan: Supportive care. Pain control measures. Treated this admission with parenteral steroid therapy. (3) Atrial fibrillation, permanent: Plan: Rate is fairly well-controlled now with diltiazem drip. Permanent cardiac pacemaker is in place. Coumadin is on hold (4) Coumadin toxicity: Plan: INR 7.5 on admission. Coumadin held and vitamin K administered. Coumadin is currently on hold. She is n.p.o. (5) owning: Plan: Occurred May 21 p.m. Will use IM Zyprexa as needed. Seroquel was ordered at bedtime but is now on hold Plan To be determined. Prognosis is poor and she may need to be changed over to comfort measures only within the next 24 to 48 hours Admission and Anticipated Discharge Date Admission Date: May 20, 2023 Subjective Unfortunately no improvement. She is awake and alert but still has diffuse abdominal pain. Unfortunately the lactate and white blood cell count both have gone up. This is not a good prognostic indicator. Family remains at the bedside. Atrial fibrillation rate is relatively well-controlled with a diltiazem drip. Continue parenteral pain control measures with morphine Review of Systems 2 Review of Systems: Constitutional-no fever or chills ENT-no blurred vision, no double vision, no epistaxis, no sore throat Respiratory-no cough, no wheezing, no shortness of breath Cardiac-no palpitations, no chest pain, no syncope GI-nausea. No vomiting. No melena or hematochezia -no urinary retention, no urinary incontinence, no dysuria, no hematuria Musculoskeletal-lumbar area pain. Skin-no bruising, no rashes, no pruritus Neuro-generalized weakness more pronounced in both legs. Psych-no depression, no anxiety Physical Exam 2 Physical Exam: General-alert and oriented x3, no fevers, no chills HEENT-head atraumatic and normocephalic, pupils equal and reactive to light, extraocular muscles intact Neck-no lymphadenopathy or thyromegaly, trachea midline Chest-clear to auscultation percussion. No rales wheezing or rhonchi Cardiac-regular rate and rhythm, normal S1 and S2 Abdomen-absent bowel sounds. Diffuse tenderness with guarding. No palpable masses Extremities-no cyanosis, clubbing, or edema Musculoskeletallumbar area tenderness Neuro-cranial nerves II through XII intact, motor and sensory function within normal limits, strength symmetrical with generalized weakness, no focal deficits Psych-depressed affect Results & Data Results & Data Vital Signs (Past 12 Hours) Vital Signs Temp Pulse Pulse Resp BP Pulse Ox O2 Del Method 05/24/23 11:14 37.0 C 94 H 20 135/67 95 Room Air 05/24/23 08:46 125/58 L 05/24/23 08:30 Room Air 05/24/23 07:48 36.8 C 86 16 120/59 L 96 Room Air 05/24/23 07:35 96 H 05/24/23 03:00 36.9 C 97 H 20 147/105 H 94 Room Air Laboratory Results 05/24/23 07:22 05/24/23 07:22 PG Care Time/CCT Total # of Minutes Spent Total Time Spent with Patient: Total time spent is greater than 50% in coordination of care (as documented) at patient's floor/unit and/or counseling patient: Coding Level of Care Code 02250 SUB INP/OBS CARE 3/50MIN Diagnoses Ileus K56.7 Acute exacerbation of chronic low back pain M54.50; G89.29 Atrial fibrillation, permanent I48.21 Coumadin toxicity T45.511A
[2023-05-24 15:47] VITALS: BP 130/84; PULSE 89; TEMP 97.9
[2023-05-24] MEDS ORDERED: HYDROmorphone BOLUS from BAG IV PRN (16:07)
[2023-05-24] MEDS ORDERED: HYDROmorphone/NSS 100 MG/100 ML BAG IV SCH (16:15)
--- NOTE | 2023-05-25 03:35 | Death Pronouncement Note ---
Date of Service May 25, 2023 Pronouncement Note Admission Date Admission Date: May 20, 2023 Date and Time of Date of : 05/25/23 Time of : 03:20 Contributing Factors (1) Ileus: (2) Acute exacerbation of chronic low back pain: (3) Atrial fibrillation, permanent: (4) Coumadin toxicity: (5) ing: Hospital Course Hospital Course: see discharge summary Additional Data Confirmation of : no pulse, no respirations, no heart sounds and pupils fixed and dilated Family: contacted Attending/PCP notified?: Yes Attending physician: Eddie Munguia MD Was code activated?: No
--- NOTE | 2023-06-07 15:34 | Discharge Summary ---
Date of Service June 07, 2023 Admission HPI Per Admitting Provider 88yo Female with PMH sick sinus syndrome with pacer, afib on warfarin, CHF, PAD, HTN, HLD, Hx. breast cancer, GERD here for concern back pain. Patient states she had a kyphoplasty 30 years ago tolerated well. In last 10 days she noticed worsening back pain, does not recall inciting event, states it stays in her lower back a sharp pain worse when she moves. Denies any worsened lower extremity weakness or numbness, no change in bowel or bladder habits. Patient has been in ED 3 times over past week and seen her PCP for back pain, has trialed tylenol tramadol lidocaine patches at home with limited improvement, is scheduled for MRI back on sunday, has trialed prednisone taper 05/14. At baseline ambulates with walker, stastes pain is making walking more difficult.. Patient lives in the [facility] Principal Diagnosis Ischemic bowel, acute exacerbation low back pain, Coumadin toxicity, psychosis Discharge Exam Not applicable Discharge Data Allergies Allergy/AdvReac Type Severity Reaction Status Date / Time Penicillins Allergy Severe THROAT Verified 05/19/23 22:27 SWELLS, PASSES OUT aspirin Allergy Intermediate WELTS Verified 05/19/23 22:27 AROUND EYES [place] And Derivatives Allergy Mild Runny/stuffy Verified 05/19/23 22:27 nose grapefruit Allergy Mild Nasal Verified 05/19/23 22:27 Discharge lemon Allergy Mild Nasal Verified 05/19/23 22:27 Discharge [place] Allergy Mild Nasal Verified 05/19/23 22:27 Discharge orange Allergy Mild Nasal Verified 05/19/23 22:27 Discharge mayonnaise Allergy Unknown Unknown Verified 05/19/23 22:27 chicken derived AdvReac Intermediate DIARRHEA Verified 05/19/23 22:27 chocolate flavor AdvReac Intermediate DIARRHEA Verified 05/19/23 22:27 lactose AdvReac Intermediate GI upset Verified 05/19/23 22:27 Ybbnynk-EAH-QkA Reductase AdvReac Intermediate DID NOT Verified 05/19/23 22:27 Inhibitor WORK [Foommvl-Ohz-Tix Reductase Inhibitor] grass pollen-perennial rye, AdvReac Mild RUNNY Verified 05/19/23 22:27 standar NOSE/SINUS ISSUES mushroom AdvReac Mild GI SYMPTOMS Verified 05/19/23 22:27 pollen extracts AdvReac Mild RUNNY Verified 05/19/23 22:27 NOSE/SINUS ISSUES soy AdvReac Mild GI SYMPTOMS Verified 05/19/23 22:27 lorazepam AdvReac Hallucinati Verified 05/19/23 22:27 ng Consultations 05/19/23 23:55 ED Decision to Admit Stat Ordered Studies 05/23/23 11:40 CT abd pelvis wo con Urgent Hospital Course (1) Ileus: She continues with severe diffuse abdominal pain. Both white blood cell count and lactate levels have increased. Findings are suspicious for ischemic gut. Emergent abdominal pelvic CT scan was unremarkable. Continue n.p.o. status and IV fluids. She is on Cipro and Flagyl. Parenteral pain control measures. Supportive care (2) Acute exacerbation of chronic low back pain: Supportive care. Pain control measures. Treated this admission with parenteral steroid therapy. (3) Atrial fibrillation, permanent: Rate is fairly well-controlled now with diltiazem drip. Permanent cardiac pacemaker is in place. Coumadin is on hold (4) Coumadin toxicity: INR 7.5 on admission. Coumadin held and vitamin K administered. Coumadin is currently on hold. She is n.p.o. (5) Sundowning: Occurred May 21 p.m. Will use IM Zyprexa as needed. Seroquel was ordered at bedtime but is now on hold Plan To be determined. Prognosis is poor and she may need to be changed over to comfort measures only within the next 24 to 48 hours Total Time Total Time Spent Total Time Spent (In Minutes): 30 minutes Discharge Plan Discharge Items Patient Disposition: Other Date/Time: 05/25/23 03:20 Coding Level of Care Code 23010 IN/OBS DISCH 30 MIN/LESS Diagnoses Ileus K56.7 Acute exacerbation of chronic low back pain M54.50; G89.29 Atrial fibrillation, permanent I48.21 Coumadin toxicity T45.511A Sundowning F05
== END 2023-05-25 04:30 | disposition expired | DRG 552 ==
LOC: ED 21:12 → 2E 05-20 00:58 → SUATTDRO 05-20 00:58 → 2E 05-20 05:04 → 2N 05-21 14:10 → 2E 05-23 14:23